=== PATIENT | male | born 1955 | race Caucasian/White ===

== ENCOUNTER 2018-03-01 20:16 | Inpatient (IN) ==
[2018-03-01] MEDS ORDERED: Aspirin 325 MG Tablet PO ONE (20:39)
[2018-03-01] MEDS ORDERED: Sod Chloride 0.9% Inj 1,000 ML IV.SIG ONE ×2 (20:46→22:28)
[2018-03-01] MEDS ORDERED: Amiodarone Inj 150 MG in Dextrose 5% in Water Inj 97 ML IV.SIG ONE ×2 (20:52)
[2018-03-01] MEDS ORDERED: Ketorolac Inj 30 MG/ML (IVP) Vial IV.PUSH ONE (21:06)
[2018-03-01 21:33] LABS: Baso % (Auto) 0.1 % (0.0-2.0); Hematocrit 33.8 % (39.0-51.0); Hemoglobin 10.3 gm/dL (13.0-17.0); Lymph # (Auto) 0.9 th/mm3 (1.0-4.8); Lymph % (Auto) 3.3 % (9.0-44.0); Mean Corpuscular HGB Conc 30.6 % (32.0-36.0); Mean Corpuscular Volume 81.7 fL (80.0-100.0); Mean Platelet Volume 7.9 fL (7.0-11.0); Mono # (Auto) 1.1 th/mm3 (0.0-0.9); Mono % (Auto) 3.8 % (0.0-8.0); Neut # (Auto) 26.5 th/mm3 (1.8-7.7); Neut % (Auto) 92.8 % (16.0-70.0); Platelet Count 328 th/mm3 (150-450); Red Blood Count 4.13 mil/mm3 (4.50-5.90); Red Cell Distribution Width 16.4 % (11.6-17.2); White Blood Count 28.5 th/mm3 (4.0-11.0)
[2018-03-01] MEDS ORDERED: Piperacil/Tazo 4.5 GM Premix 4.5 GM/100 ML BAG IV.SIG ONE (21:35)
[2018-03-01 21:41] LABS: VBG Base Excess -2.8 mmol/L (-2-2); VBG Blood Gas Oxygen Content 2.6 Vol % (9.0-17.0); VBG PCO2 50 mmHG (44-48); VBG PH 7.29 (7.360-7.400); VBG PO2 20 mmHG (35-40)
[2018-03-01 21:46] LABS: Activated Partial Thrombo Time 28.6 sec (24.3-30.1); Alanine Aminotransferase 47 U/L (12-78); INR 1.3 Ratio; Prothrombin Time 13.1 sec (9.8-11.6)
[2018-03-01 21:57] LABS: Alkaline Phosphatase 280 U/L (45-117); Anion Gap 15 meq/L (5-15); Aspartate Aminotransferase 110 U/L (15-37); Blood Urea Nitrogen 15 mg/dL (7-18); Calcium 8.2 mg/dL (8.5-10.1); Carbon Dioxide 21.9 meq/L (21.0-32.0); Chloride 97 meq/L (98-107); Glomerular Filtration Rate 35 mL/min (>89); Glucose,Random 81 mg/dL (74-106); Sodium 134 meq/L (136-145); Total Protein 7.1 g/dL (6.4-8.2); Troponin I 0.03 ng/mL (0.02-0.05)
[2018-03-01 22:00] LABS: Creatine Kinase 75 U/L (39-308); Potassium 4.4 meq/L (3.5-5.1)
[2018-03-01] MEDS ORDERED: Vancomycin Inj 1 GM/200 ML PIGGYBACK IV.SIG SCH (22:00)
--- NOTE | 2018-03-01 22:07 | XR ---
EXAM DATE: 03/01/2018 9:27 PM EDT AGE/SEX: 62 years / Male INDICATIONS: . Chest pain. Short of breath. CLINICAL DATA: This is the patient's initial encounter. Patient reports that signs and symptoms have been present for 1 day and indicates a pain score of Nonresponsive. MEDICAL/SURGICAL HISTORY: None. None. COMPARISON: C, RIBS LEFT(W PA CXR MIN 3VWS), 03/28/2011. . FINDINGS: Examination is abnormal demonstrating a large area of consolidation mid and lower right lung causing loss of delineation of the right hemidiaphragm and preservation of the right heart border. No evidenc e of mediastinal shift. The left lung is clear. The heart is normal in size. CONCLUSION: Left mid and lower lung lobar consolidation. Electronically signed by: Harlan Garcia MD 03/01/2018 10:06 PM EDT
[2018-03-01 22:11] LABS: Lymphocytes 6 % (9-44); Monocytes 3 % (0-8); Platelet Estimate Normal (Normal); Platelet Morphology Normal (Normal); Toxic Vacuolation Present
[2018-03-01 22:14] LABS: Acanthocytes Occ
--- NOTE | 2018-03-01 22:23 | ED ---
HPI General Chief Complaint: Chest Pain Stated Complaint: Neuro Time Seen by Provider: 03/01/18 20:28 Source: patient Mode of arrival: ambulatory Limitations: no limitations History of Present Illness HPI narrative: 62-year-old male the presents to the ED for evaluation of chest pain on the left side as well as chest pain on the right side and numbness to his right arm. Per patient he has had the chest pain on the right side for about 3 weeks and is progressively getting worse. Per patient is more positionally gets worse when he lays on flat. Per patient he has not seen anybody for this. Per patient is also developed left-sided chest pain which shortness of breath with exertion. Per patient he has no history of heart disease. Per patient he has no history of medical issues alert and some chronic back problems for which she follows with pain management and takes morphine and pain medications. Per patient his pain currently is 8 out of 10. Per patient the pain is more severe on the right side than the left. Per patient he also has numbness to his right arm that he has been having for about 3 weeks as well. Per patient he went to see structural steel painter who evaluated him and recommended that he goes to the ER. Apparently at the time patient decided not to go to the ER secondary to having a lot of things to do for work. Patient comes here today because his pain has progressively gotten worse and he gets more short of breath. He denies ever being told he had atrial fibrillation or any other medical issues. Patient does report that he has a history of bilateral lower leg infections as well as hardware secondary to an injury he sustained in the [place]. Per patient he has been told that apparently he has some poisoning as well as possible infection from the bone marrow secondary to the hardware he has in his legs. Patient is not really specific if he is taking antibiotics or who is taking care of this. He does tell me that he has noted that he has lost 60 pounds in the past 6 months without trying. Complete Quality Measures for STEMI Alert Patients Related Data Home Medications Medication Instructions Recorded Confirmed Unable to Obtain Home Meds 03/02/18 03/02/18 Allergies Allergy/AdvReac Type Severity Reaction Status Date / Time Unable to Assess Allergy Unknown Unverified 03/30/17 06:11 No Known Allergies Allergy Uncoded 07/29/15 10:32 Review of Systems ROS Unobtainable All other systems reviewed negative except as stated in HPI PMFSH Medical History Medical History Edema (Acute) Back pain (Acute) Bone marrow transplant infection (Chronic) Social History Social History Substance History: No History of Abuse Smoking Status: Former smoker Tobacco Type: Cigarettes How Often Do You Have a Drink Containing Alcohol: 2 to 3 times a week Recent Travel in [facility] within the Last 8 Weeks: No Recent Out of Country Travel within the Last 8 Weeks: No Immunization History Tetanus Immunization: <5 Years Hx Influenza Vaccine This Season: No Exam Narrative Exam Narrative: GENERAL: Very anorexic and disheveled SKIN: Focused skin assessment warm/dry. HEAD: Atraumatic. Normocephalic. EYES: Pupils equal and round. No scleral icterus. No injection or drainage. ENT: No nasal bleeding or discharge. Mucous membranes pink and moist. NECK: Trachea midline. No JVD. CARDIOVASCULAR: Irregular irregular rate and rhythm. No murmur appreciated. RESPIRATORY: No accessory muscle use. Clear to auscultation. Breath sounds equal bilaterally. GASTROINTESTINAL: Abdomen soft, non-tender, nondistended. Hepatic and splenic margins not palpable. MUSCULOSKELETAL: No obvious deformities. No clubbing. No cyanosis. No edema. Full range of motion of the upper and lower extremities bilaterally. 2+ pulses bilaterally. Patient does have chronic deformities to the lower legs bilaterally and soft tissue swelling to the lower legs as well with what appears to be 1+ pitting edema bilaterally. NEUROLOGICAL: Awake and alert. No obvious cranial nerve deficits. Motor grossly within normal limits. Normal speech. PSYCHIATRIC: Appropriate mood and affect; insight and judgment normal. Procedures Hemaprompt Stool Procedural Steps Taken: specimen placed in appropriate test area, developer placed on specimen and control areas and controls appropriately positive and negative Hemaprompt Stool Result: negative Course Initial Documented Vital Signs Temperature 99.5 F 03/01/18 20:22 Pulse Rate 130 H 03/01/18 20:22 Respiratory Rate 24 03/01/18 20:22 Blood Pressure 136/87 03/01/18 20:22 Pulse Oximetry 97 03/01/18 20:22 Last Documented Vital Signs Temperature 98.9 F 03/01/18 21:24 Pulse Rate 90 03/02/18 01:27 Respiratory Rate 20 03/02/18 01:27 Blood Pressure 99/64 L 03/02/18 01:27 Pulse Oximetry 98 03/02/18 01:27 Critical Care Time Critical Care Time: Yes Total Critical Care Time: 40 Attestation: Aggregate critical care time was 40 minutes. Time to perform other separately billable procedures was not included in the critical care time. My time did not include minutes spent treating any other patients simultaneously or on activities that did not directly contribute to the patient's treatment. The services I provided to this patient were to treat and/or prevent clinically significant deterioration that could result in: Septic shock, cardiogenic shock , I provided critical care services requiring my management, as noted below: Chart data review, documentation time, medication orders and management, vital sign assessments/reviewing monitor data, ordering and reviewing lab tests, ordering and interpreting/reviewing x-rays and diagnostic studies, care of the patient and discussion of the patient with the admitting physicians. Medical Decision Making MDM Narrative Medical decision making narrative: 62-year-old male that presents to the ED for evaluation of chest pain. Patient was properly examined and was found to have signs and symptoms which appear to be very concerning for atrial for ablation RVR. Patient initially was seen with a normal blood pressure in the 130s systolic as well as a heart rate in the 130s 140s in triage but while I was evaluating the patient myself patient's heart rate was in the 160s 170s and his blood pressure seemed to have come down to the 70 systolic. I immediately spoke with my attending Dr. Jackson who came to bedside and agree with plan. Labs and imaging were ordered. Multiple IV lines were placed. IV fluids as well as amiodarone was started. Patient was given 2 L of fluids. Rectal exam was done and did not show any sign of bleeding. Imaging and labs were done and showed leukocytosis in the 20,000 and what appears to be a mass in the chest x- ray. Patient was started on IV antibiotics for possible sepsis as well as CT pulmonary angiograms and abdomen and head were ordered. Patient will still somewhat hypotensive so pressors were started. My attending Dr. Jackson herself spoke with Dr. Reinoso herself who agrees to admission to his service. Patient was admitted to the ICU. I, Dr. Jackson, have reviewed the advance practice practitioner's documentation and am in agreement, met with the patient face to face, made the diagnosis, and the medical decision making was done by me. *My assessment and Findings: 62-year-old male presents with complaint of palpitations right-sided chest pain and shortness of breath identified in triage to have atrial fibrillation by EKG patient was brought back directly to the emergency department and placed on hall monitor with continuous pulse oximetry O2 saturations in normal range patient identified to be in atrial fibrillation with RVR rate of 150 with hypotension. IV access obtained specimens collected and sent for resulting patient bolused with normal saline 1 L and amiodarone bolus ordered 150 mg. Patient set up for cardioversion if condition changed or patient was not showing evidence of response to amiodarone infusion. Patient given additional liter of normal saline. Patient repetitively complaining of right sided chest pain that he has had daily for greater than 3 weeks that resolves with lying on his right side but worsens with resting supine. No left-sided chest pain no nausea no referred neck jaw back shoulder arm pain. Patient had failed vasovagal maneuvers. Patient with history of previous surgeries related to injury sustained in the [place] and chronic pain syndrome. Patient admits to daily morphine and oxycodone use. Patient states he took his medications as prescribed and did not take additional medications. Denied history of cardiac disease or rhythm disturbance or specifically atrial fibrillation. Patient states he had felt palpitations for at least 2 weeks. Patient is noted improvement of symptoms and rate of rhythm with IV fluid hydration as well as amiodarone and. Chest x-ray was performed and identified to be specifically abnormal to the right lower lung field with difficulty differentiating area of right hemidiaphragm. Stat imaging studies CT pulmonary angiogram and CT abdomen pelvis with IV contrast ordered. Patient treated with presumptive IV antibiotics after obtaining blood cultures and lactic acid specimen was Zosyn and vancomycin as identified to have white count of 28,000 with left shift. Patient denies any recent fever cough dysuria but does complain of right-sided chest pain possibly related to right upper quadrant abdominal pain. Patient's ABG consistent with mild respiratory acidosis with history of COPD. Cardiac enzymes found to be remarkable for troponin component of 0.03 but still in normal range and CK not elevated. Patient with renal insufficiency with creatinine of 1.96. Patient's case discussed with pipeline integrity engineer for admission to the ICU for new onset atrial fibrillation septic shock lung mass possibly abdominal mass. CT pulmonary angiogram no PE concerning for right lower lobe lung collapse and CT abdomen and pelvis concerning for hepatomegaly with possible acalculous cholecystitis. This information was shared with the pipeline integrity engineer. Patient was also administered digoxin 0.5 mg IV and recommendation of pipeline integrity engineer albumin and Solu-Cortef. Dr Meza in ED to see patient. Differential Diagnosis Differential Diagnosis: Pneumonia versus sepsis versus cancer versus mass versus lung cancer versus atrial fibrillation RVR versus PE versus septic shock versus cardiac arrest Medical Records Medical records reviewed: Yes I reviewed the patient's medical records. I reviewed medical records Lab Data Lab results reviewed: Yes I reviewed the patient's lab results. Lab results narrative: Ammonia within normal limits. Troponin of 0.03 CK-MB negative [facility] Result diagrams: 03/01/18 20:50 03/01/18 20:50 Lab Results 03/01/18 03/01/18 03/01/18 Range/Units 20:50 20:50 20:50 WBC 28.5 H (4.0-11.0) th/mm3 RBC 4.13 L (4.50-5.90) mil/mm3 Hgb 10.3 L (13.0-17.0) gm/dL Hct 33.8 L (39.0-51.0) % MCV 81.7 (80.0-100.0) fL MCH 25.0 L (27.0-34.0) pg MCHC 30.6 L (32.0-36.0) % RDW 16.4 (11.6-17.2) % Plt Count 328 (150-450) th/mm3 MPV 7.9 (7.0-11.0) fL Prelim Diff (Auto) Slide review pending Neut % (Auto) 92.8 H (16.0-70.0) % Lymph % (Auto) 3.3 L (9.0-44.0) % Traill % (Auto) 3.8 (0.0-8.0) % Eos % (Auto) 0.0 (0.0-4.0) % Baso % (Auto) 0.1 (0.0-2.0) % Neut # (Auto) 26.5 H (1.8-7.7) th/mm3 Lymph # (Auto) 0.9 L (1.0-4.8) th/mm3 Traill # (Auto) 1.1 H (0.0-0.9) th/mm3 Eos # (Auto) 0.0 (0.0-0.4) th/mm3 Baso # (Auto) 0.0 (0.0-0.2) th/mm3 WBC Differential Manual diff final Seg Neuts % (Manual) 72 H (16-70) % Band Neuts % (Manual) 19 H (0-6) % Lymphocytes % (Manual) 6 L (9-44) % Monocytes % (Manual) 3 (0-8) % Abs Neuts (Manual) 25.9 H (1.8-7.7) th/mm3 Differential Comment . Toxic Vacuolation Present H (None) Platelet Estimate Normal (Normal) Platelet Morphology Normal (Normal) Acanthocytes (Spur) Occ H (None) PT 13.1 H (9.8-11.6) sec INR 1.3 Ratio APTT 28.6 (24.3-30.1) sec Puncture Site Patient Temperature VBG pH (7.360-7.400) VBG pCO2 (44-48) mmHG VBG pO2 (35-40) mmHG VBG HCO3 (22-26) mmol/L VBG O2 Saturation (70-76) % VBG O2 Content (9.0-17.0) Vol % VBG Base Excess (-2-2) mmol/L VBG Carboxyhemoglobin (0-4) % VBG Methemoglobin (0-2) % Hemoglobin (12.0-16.0) G/DL O2 Delivery Device Liter Flow L/M Inspired O2 % Critical Value Sodium 134 L (136-145) meq/L Potassium 4.4 (3.5-5.1) meq/L Chloride 97 L (98-107) meq/L Carbon Dioxide 21.9 (21.0-32.0) meq/L Anion Gap 15 (5-15) meq/L BUN 15 (7-18) mg/dL Creatinine 1.96 H (0.60-1.30) mg/dL Estimated GFR 35 L (>89) mL/min Random Glucose 81 (74-106) mg/dL Lactic Acid (0.4-2.0) mmol/L Calcium 8.2 L (8.5-10.1) mg/dL Total Bilirubin 0.6 (0.2-1.0) mg/dL AST 110 H (15-37) U/L ALT 47 (12-78) U/L Alkaline Phosphatase 280 H (45-117) U/L Ammonia (11-32) mcmol/L Total Creatine Kinase 75 (39-308) U/L Troponin I 0.03 (0.02-0.05) ng/mL B-Natriuretic Peptide (0-100) pg/mL Total Protein 7.1 (6.4-8.2) g/dL Albumin 2.0 L (3.4-5.0) g/dL Serum Alcohol (0-5) mg/dL Blood Type Blood Type Recheck Antibody Screen 03/01/18 03/01/18 03/01/18 Range/Units 20:50 21:10 21:29 WBC (4.0-11.0) th/mm3 RBC (4.50-5.90) mil/mm3 Hgb (13.0-17.0) gm/dL Hct (39.0-51.0) % MCV (80.0-100.0) fL MCH (27.0-34.0) pg MCHC (32.0-36.0) % RDW (11.6-17.2) % Plt Count (150-450) th/mm3 MPV (7.0-11.0) fL Prelim Diff (Auto) Neut % (Auto) (16.0-70.0) % Lymph % (Auto) (9.0-44.0) % Traill % (Auto) (0.0-8.0) % Eos % (Auto) (0.0-4.0) % Baso % (Auto) (0.0-2.0) % Neut # (Auto) (1.8-7.7) th/mm3 Lymph # (Auto) (1.0-4.8) th/mm3 Traill # (Auto) (0.0-0.9) th/mm3 Eos # (Auto) (0.0-0.4) th/mm3 Baso # (Auto) (0.0-0.2) th/mm3 WBC Differential Seg Neuts % (Manual) (16-70) % Band Neuts % (Manual) (0-6) % Lymphocytes % (Manual) (9-44) % Monocytes % (Manual) (0-8) % Abs Neuts (Manual) (1.8-7.7) th/mm3 Differential Comment Toxic Vacuolation (None) Platelet Estimate (Normal) Platelet Morphology (Normal) Acanthocytes (Spur) (None) PT (9.8-11.6) sec INR Ratio APTT (24.3-30.1) sec Puncture Site By rn from iv site Patient Temperature 98.6 VBG pH 7.29 L* (7.360-7.400) VBG pCO2 50 H (44-48) mmHG VBG pO2 20 L* (35-40) mmHG VBG HCO3 23 (22-26) mmol/L VBG O2 Saturation 20 L (70-76) % VBG O2 Content 2.6 L (9.0-17.0) Vol % VBG Base Excess -2.8 L (-2-2) mmol/L VBG Carboxyhemoglobin 1.8 (0-4) % VBG Methemoglobin 0.6 (0-2) % Hemoglobin 9.2 L (12.0-16.0) G/DL O2 Delivery Device Nasal cannula Liter Flow 4.00 L/M Inspired O2 21 % Critical Value Yes Sodium (136-145) meq/L Potassium (3.5-5.1) meq/L Chloride (98-107) meq/L Carbon Dioxide (21.0-32.0) meq/L Anion Gap (5-15) meq/L BUN (7-18) mg/dL Creatinine (0.60-1.30) mg/dL Estimated GFR (>89) mL/min Random Glucose (74-106) mg/dL Lactic Acid (0.4-2.0) mmol/L Calcium (8.5-10.1) mg/dL Total Bilirubin (0.2-1.0) mg/dL AST (15-37) U/L ALT (12-78) U/L Alkaline Phosphatase (45-117) U/L Ammonia 16 (11-32) mcmol/L Total Creatine Kinase (39-308) U/L Troponin I (0.02-0.05) ng/mL B-Natriuretic Peptide 511 H (0-100) pg/mL Total Protein (6.4-8.2) g/dL Albumin (3.4-5.0) g/dL Serum Alcohol (0-5) mg/dL Blood Type Blood Type Recheck Antibody Screen 03/01/18 03/01/18 03/01/18 Range/Units 21:29 23:00 23:00 WBC (4.0-11.0) th/mm3 RBC (4.50-5.90) mil/mm3 Hgb (13.0-17.0) gm/dL Hct (39.0-51.0) % MCV (80.0-100.0) fL MCH (27.0-34.0) pg MCHC (32.0-36.0) % RDW (11.6-17.2) % Plt Count (150-450) th/mm3 MPV (7.0-11.0) fL Prelim Diff (Auto) Neut % (Auto) (16.0-70.0) % Lymph % (Auto) (9.0-44.0) % Traill % (Auto) (0.0-8.0) % Eos % (Auto) (0.0-4.0) % Baso % (Auto) (0.0-2.0) % Neut # (Auto) (1.8-7.7) th/mm3 Lymph # (Auto) (1.0-4.8) th/mm3 Traill # (Auto) (0.0-0.9) th/mm3 Eos # (Auto) (0.0-0.4) th/mm3 Baso # (Auto) (0.0-0.2) th/mm3 WBC Differential Seg Neuts % (Manual) (16-70) % Band Neuts % (Manual) (0-6) % Lymphocytes % (Manual) (9-44) % Monocytes % (Manual) (0-8) % Abs Neuts (Manual) (1.8-7.7) th/mm3 Differential Comment Toxic Vacuolation (None) Platelet Estimate (Normal) Platelet Morphology (Normal) Acanthocytes (Spur) (None) PT (9.8-11.6) sec INR Ratio APTT (24.3-30.1) sec Puncture Site Patient Temperature VBG pH (7.360-7.400) VBG pCO2 (44-48) mmHG VBG pO2 (35-40) mmHG VBG HCO3 (22-26) mmol/L VBG O2 Saturation (70-76) % VBG O2 Content (9.0-17.0) Vol % VBG Base Excess (-2-2) mmol/L VBG Carboxyhemoglobin (0-4) % VBG Methemoglobin (0-2) % Hemoglobin (12.0-16.0) G/DL O2 Delivery Device Liter Flow L/M Inspired O2 % Critical Value Sodium (136-145) meq/L Potassium (3.5-5.1) meq/L Chloride (98-107) meq/L Carbon Dioxide (21.0-32.0) meq/L Anion Gap (5-15) meq/L BUN (7-18) mg/dL Creatinine (0.60-1.30) mg/dL Estimated GFR (>89) mL/min Random Glucose (74-106) mg/dL Lactic Acid 3.0 H (0.4-2.0) mmol/L Calcium (8.5-10.1) mg/dL Total Bilirubin (0.2-1.0) mg/dL AST (15-37) U/L ALT (12-78) U/L Alkaline Phosphatase (45-117) U/L Ammonia (11-32) mcmol/L Total Creatine Kinase (39-308) U/L Troponin I (0.02-0.05) ng/mL B-Natriuretic Peptide (0-100) pg/mL Total Protein (6.4-8.2) g/dL Albumin (3.4-5.0) g/dL Serum Alcohol Less than 3 (0-5) mg/dL Blood Type A Positive Blood Type Recheck Required Antibody Screen Negative Imaging Data Attestation: I personally reviewed and interpreted this imaging study as follows : Radiologist's impression: Chest X-Ray 03/01/18 20:39 CONCLUSION: Left mid and lower lung lobar consolidation. Venous Doppler Study 03/01/18 20:39 CONCLUSION: 1. The study is negative for bilateral lower extremity deep venous thrombosis. Chest CTA 03/01/18 21:06 CONCLUSION: 1. This study is negative for pulmonary embolism. 2. Dense consolidation in the right lower lobe without air bronchograms and with truncation of the bronchus to the right lower lobe. This suggests an obstructing lesion. Recommend direct visualization with bronchoscopy. 3. Multiple right-sided pleural and subpleural nodules measuring up to 2 cm in size. 4. Scattered areas of subcutaneous and deep soft tissue gas in the low neck and supraclavicular region. Abdomen/Pelvis CT 03/01/18 21:29 CONCLUSION: 1. Hepatomegaly without focal lesion. 2. Prominent amount of pericholecystic fluid without calcified gallstones suggests possible acalculous cholecystitis. 3. Abnormal appearance to the right lower lung, described on CT pulmonary angiogram report. 4. Bilateral mildly prominent inguinal lymph nodes. 5. Moderately distended stomach. Head CT 03/01/18 21:38 CONCLUSION: 1. Findings suggest a 6 mm mass in the left occipital white matter. Recommend further characterization using MRI with and without contrast. ECG Data EKG Prior to Arrival: No Attestation: I personally reviewed and interpreted this ECG as follows: Interpretation: EKG show atrial fibrillation with RVR in the 160s with no sign of acute ischemia or arrhythmia. AL intervals cannot be measured. These are new findings from prior EKG Repeat EKG again shows atrial fibrillation with RVR no acute ST elevation or injury pattern change noted Discharge Plan Discharge Disposition Patient Disposition: 30 Still Patient Discharge Condition Condition: Critical Discharge Details Diagnosis: Septic shock, Atrial fibrillation with RVR, Acute hypotension, Mass of lung, Acalculous cholecystitis Physicians Team ED Provider: Farhana Jackson ED Midlevel Provider: Gonzalo Hare Primary Care Provider: UNKNOWN, Attending Provider: Reece Meza Other Providers: Gonzalo Bland Arjun Status ED Status: Admitted Patient
[2018-03-01] MEDS ORDERED: Digoxin Inj 500 MCG/2 ML Ampul IV.PUSH ONE (22:28)
--- NOTE | 2018-03-01 22:29 | CT ---
EXAM DATE: 03/01/2018 10:04 PM EDT AGE/SEX: 62 years / Male INDICATIONS: Chest pain. CLINICAL DATA: This is the patient's initial encounter. Patient reports that signs and symptoms have been present for 1 day and indicates a pain score of 5/10. MEDICAL/SURGICAL HISTORY: None. Inguinal hernia repair. leg RADIATION DOSE: 6.89 CTDI (mGy) ; Combined studies COMPARISON: No prior exams available for comparison. TECHNIQUE: Volumetric scanning was performed using a multi-row detector CT scanner during bolus infu yany of 80 ml Omnipaque 350 (iohexol) nonionic water-soluble contrast as a cumulative dose for multi ple exams. The data was post processed with a variety of visualization algorithms including full volu me maximum intensity projection and sliding thin slab reformation. Using automated exposure control a nd adjustment of the mA and/or kV according to patient size, radiation dose was kept as low as reason ably achievable to obtain optimal diagnostic quality images. DICOM format image data is available el ectronically for review and comparison. FINDINGS: Pulmonary Arteries: No filling defects are seen in the pulmonary arteries out to the subsegmental ve ssels. The left and right pulmonary arteries are normal in diameter. Lung: There is dense consolidation of the right lower lobe with evidence of some volume expansion an d no air bronchograms. There is truncation of the bronchus to the right lower lobe at its origin. Effusion: None. Pleura: There are multiple pleural-based nodules in the right chest, the largest located in the cardi ophrenic angle measuring up to 2 cm in size. Additional areas of nodular thickening are present in th e lateral mid lung and anterior mid lung. No nodular pleural thickening on the left side. Mediastinum: No evidence of mediastinal or hilar adenopathy. Other: Scattered areas of gas in the soft tissues of the supraclavicular region bilaterally extendin g into the neck. CONCLUSION: 1. This study is negative for pulmonary embolism. 2. Dense consolidation in the right lower lobe without air bronchograms and with truncation of the b ronchus to the right lower lobe. This suggests an obstructing lesion. Recommend direct visualization with bronchoscopy. 3. Multiple right-sided pleural and subpleural nodules measuring up to 2 cm in size. 4. Scattered areas of subcutaneous and deep soft tissue gas in the low neck and supraclavicular bin on. Electronically signed by: Harlan Garcia MD 03/01/2018 10:28 PM EDT
[2018-03-01] MEDS ORDERED: Hydrocortisone Inj 100 MG in Sodium Chlor 0.9% Inj 100 ML IV.SIG ONE (22:32)
[2018-03-01] MEDS: Metoprolol Inj 5 MG/5 ML Vial IV.PUSH SCH (22:32)
--- NOTE | 2018-03-01 22:32 | CT ---
EXAM DATE: 03/01/2018 10:00 PM EDT AGE/SEX: 62 years / Male INDICATIONS: Altered mental status. CLINICAL DATA: This is the patient's initial encounter. Patient reports that signs and symptoms have been present for 1 day and indicates a pain score of 4/10. MEDICAL/SURGICAL HISTORY: None. Inguinal hernia repair. leg RADIATION DOSE: 63.64 CTDI (mGy) [place] [facility] [place]28/2011. . TECHNIQUE: CT of the head without contrast. Using automated exposure control and adjustment of the mA and/or kV according to patient size, radiation dose was kept as low as reasonably achievable to ob tain optimal diagnostic quality images. DICOM format image data is available electronically for revi ew and comparison. FINDINGS: Cerebrum: There is a 6 mm round nodular opacity in the posterior left occipital white matter without evidence of mass effect or surrounding edema, best seen on image #16.. The intermediate density. The ventricles are normal in size. No evidence of midline shift. No extra-axial fluid or blood. Posterior Fossa: The cerebellum and brainstem are intact. The 4th ventricle is midline. The cerebe llopontine angle is unremarkable. Extracranial: The visualized portion of the orbits is intact. Skull: The calvaria is intact. No evidence of skull fracture. CONCLUSION: 1. Findings suggest a 6 mm mass in the left occipital white matter. Recommend further characterizati on using MRI with and without contrast. Electronically signed by: Harlan Garcia MD 03/01/2018 10:30 PM EDT
[2018-03-01] MEDS ORDERED: Albumin Human 5% Inj 250 ML IV.SIG ONE (22:33)
--- NOTE | 2018-03-01 22:38 | CT ---
EXAM DATE: 03/01/2018 10:03 PM EDT AGE/SEX: 62 years / Male INDICATIONS: Abdomen pain. CLINICAL DATA: This is the patient's initial encounter. Patient reports that signs and symptoms have been present for 1 day and indicates a pain score of 5/10. MEDICAL/SURGICAL HISTORY: None. Inguinal hernia repair. leg ORAL CONTRAST: No oral contrast ingested. RADIATION DOSE: 6.89 CTDI (mGy) ; Combined studies COMPARISON: No prior exams available for comparison. TECHNIQUE: Multiple contiguous axial images were obtained through the abdomen and pelvis following b olus infusion of 80 ml Omnipaque 350 (iohexol) nonionic water-soluble contrast as a cumulative dose for multiple exams. No oral contrast ingested. Using automated exposure control and adjustment of t he mA and/or kV according to patient size, radiation dose was kept as low as reasonably achievable to obtain optimal diagnostic quality images. DICOM format image data is available electronically for r eview and comparison. FINDINGS: Lower Lungs: Abnormal appearance to the right lower lobe with heterogeneous density consolidation and several subpleural nodules in the right lower chest. Liver: Hepatomegaly with craniocaudal dimension 19 cm. No focal lesions seen. There is an abnormal ap pearance to the gallbladder with pericholecystic fluid, but no gallbladder wall thickening and no gabby cified gallstones. Spleen: Homogeneous density without enlargement. Pancreas: Unremarkable without mass or calcification. Kidneys: Normal in size and shape. No evidence of mass or hydronephrosis. Adrenal Glands: Unremarkable. Aorta: The aorta and proximal iliac vessels are grossly unremarkable without aneurysmal dilation. Bowel/Mesentery: Moderate distention of the stomach predominantly fluid-filled. No dilated loops of s mall or large bowel. Very little mesenteric and retroperitoneal fat. Abdominal Wall: Intact. Multiple anchor screws in the low anterior abdominal wall. Retroperitoneum: No evidence of adenopathy in the retrocrural, para-aortic, or deep pelvic regions. Bladder: Contours are smooth. Reproductive Organs: No abnormal masses or calcifications seen. Inguinal: Multiple bilateral prominent inguinal nodes measuring up to 1.4 cm in size. Bony Structures: Healed fracture of the posterior right 11th rib with bridging callus. Advanced dege nerative changes in the right hip with prominent supra-acetabular subchondral cyst.. CONCLUSION: 1. Hepatomegaly without focal lesion. 2. Prominent amount of pericholecystic fluid without calcified gallstones suggests possible acalculo us cholecystitis. 3. Abnormal appearance to the right lower lung, described on CT pulmonary angiogram report. 4. Bilateral mildly prominent inguinal lymph nodes. 5. Moderately distended stomach. Electronically signed by: Harlan Garcia MD 03/01/2018 10:37 PM EDT
[2018-03-01] MEDS ORDERED: Hydrocortisone Sod Succinate 100 MG Vial IV.PUSH ONE (22:45)
--- NOTE | 2018-03-01 23:01 | US ---
EXAM DATE: 03/01/2018 10:39 PM EDT AGE/SEX: 62 years / Male INDICATIONS: Bilateral leg swelling. CLINICAL DATA: This is the patient's initial encounter. Patient reports that signs and symptoms have been present for 1 day and indicates a pain score of 3/10. MEDICAL/SURGICAL HISTORY: . Back pain. Edema. . Bone marrow transplant. COMPARISON: No prior exams available for comparison. TECHNIQUE: Venous ultrasound of both lower extremities was performed from the inguinal ligament to t he proximal calf. Real-time, color Doppler and spectral tracing, compression and augmentation techni ques were used. FINDINGS: Right Leg: Normal compression of the deep venous system from the inguinal region to the proximal gabby f. No echogenic clot is seen. Normal response of the venous system to augmentation and respiration. Left Leg: Normal compression of the deep venous system from the inguinal region to the proximal calf . No echogenic clot is seen. Normal response of the venous system to augmentation and respiration. Other: None. CONCLUSION: 1. The study is negative for bilateral lower extremity deep venous thrombosis. Electronically signed by: Harlan Garcia MD 03/01/2018 11:00 PM EDT
[2018-03-01] MEDS: Sod Chloride 0.9% Inj 1,000 ML IV.CONT SCH (23:48)
[2018-03-02] MEDS ORDERED: Bisacodyl 10 MG Supp RECTAL PRN (00:41)
--- NOTE | 2018-03-02 01:34 | P.HPCC ---
History of Present Illness Service: critical care Primary Care Physician: UNKNOWN Chief Complaint: Chest pain, Not feeling well for few weeks History of Present Illness: 62-year-old male who presented to ER with right-sided chest pain were on for a few days with some shortness of breath. He has not been feeling well for the last 2 weeks with progressive weakness which is generalized. Patient is also lost weight about 50-60 pounds in the last 6 months which is unintentional. He denies any nausea vomiting or diarrhea. Denies any melena or rectal bleeding. Patient was found to be in A. fib with RVR on arrival in the ER. He received IV Lopressor and subsequently dropped his blood pressure and she was started on Levophed for pressor support. After obtaining blood cultures patient was started on IV Zosyn. He underwent imaging studies which revealed hepatomegaly, right lower lobe consolidation and a question of fluid around the gallbladder suggesting cholecystitis. Head CT revealed a lesion in the occipital lobe. Patient was accepted for admission by critical care medicine service. When I evaluated the patient in the ER he was laying in the ER stretcher appeared comfortable not in acute distress though was diaphoretic. [place] on the [facility]. Inpatient Certification: I certify that the inpatient services were ordered in accordance with Medicare regulations governing the order. This includes certification that hospital inpatient services are reasonable and necessary and in the case of services not specified as inpatient-only under 42 CFR 419.22(n), that they are appropriately provided as inpatient services in accordance to with the 2-midnight benchmark under 43 CFR 412.3(e) Estimated Total Length of Stay (Days): 7 Plans for Post Hospital Care: Not yet determined Review of Systems All other systems reviewed negative except as stated [facility] - History History Provided By: Patient - Medical History Medical History: Medical History (Last Reviewed 03/01/18 @ 22:18 by ANDREW Garcia) Edema (Acute) Back pain (Acute) Bone marrow transplant infection (Acute) - Tobacco History Smoking Status: Former smoker Tobacco Type: Cigarettes - Alcohol History How Often Do You Have a Drink Containing Alcohol: 2 to 3 times a week - Substance Use History Substance History: No History of Abuse - Travel History Recent Travel in the [place] Within the Last 8 Weeks: No Recent Travel Out of the Country Within the Last 8 Weeks: No - Immunization History Tetanus Immunization: <5 Years Hx Influenza Vaccine This Season: No Medications and Allergies Active Medications: Active Medications Al Hydroxide/Mg Hydroxide (Milk Of Magnesia Liq) 30 ml PO Q12H PRN PRN Reason: Mild Constipation Albuterol (Duoneb Neb (Prn)) 1 ampul NEB Q2HR NEB PRN PRN Reason: WHEEZING Bisacodyl (Dulcolax Supp) 10 mg RECTAL DAILY PRN PRN Reason: SEVERE CONSITIPATION Chlorhexidine Gluconate (Chlorhexidine 2% Cloth) 3 pack TOPICAL DAILY@0400 SUSIE Stop: 03/07/18 03:59 Chlorhexidine Gluconate (Chlorhexidine 2% Cloth) 3 pack TOPICAL DAILY@0400 PRN PRN Reason: Extra cloth needed Stop: 03/07/18 03:59 Hydrocortisone Sodium Succinate (Solucortef Inj) 100 mg IV.PUSH Q8HR [facility] Amiodarone HCl 450 mg/ (Dextrose) 250 mls @ 33.33 mls/hr IV.CONT TITRATE PRN; Protocol PRN Reason: Per Protocol Last Admin: 03/01/18 22:49 Dose: 1 mg/min, 33.33 mls/hr Norepinephrine Bitartrate (Levophed-Dextrose 4 Mg/250 Ml Drip) 4 mg in 250 mls @ 7.5 mls/hr IV.SIG TITRATE PRN; Protocol PRN Reason: Per Protocol Last Titration: 03/01/18 23:02 Dose: 4 mcg/min, 15 mls/hr Vancomycin/Sodium Chloride (Vancomycin Inj) 1 gm in 200 mls @ 200 mls/hr IV.SIG ASSOCIATE [employer]IA DIRECTOR [facility] Sodium Chloride (Ns Inj) 1,000 mls @ 100 mls/hr IV.CONT .Q10H [facility] Last Admin: 03/01/18 23:48 Dose: 100 mls/hr Piperacillin/Tazobactam/Dextrose (Zosyn 3.375 Gm Premix) 50 mls @ 100 mls/hr IV.SIG Q6H SUSIE Lactulose (Lactulose Liq) 30 ml PO DAILY PRN PRN Reason: SEVERE CONSITIPATION Ondansetron HCl (Zofran Inj) 4 mg IV.PUSH Q6H PRN PRN Reason: NAUSEA OR VOMITING Pantoprazole Sodium (Protonix Inj) 40 mg IV.PUSH DAILY SUSIE Senna/Docusate Sodium (Heather-Colace) 1 tab PO BID SUSIE Sennosides (Senokot) 17.2 mg PO Q12H PRN PRN Reason: Moderate Constipation Sodium Chloride (Ns Flush) 2 ml IV.FLUSH UNSCH PRN PRN Reason: FLUSH AFTER USING IV ACCESS Last Admin: 03/01/18 22:50 Dose: 2 ml Sodium Chloride (Ns Flush) 2 ml IV.FLUSH BID SUSIE Sodium Chloride (Ns Flush) 2 ml IV.FLUSH PRN PRN PRN Reason: FLUSH AFTER USING IV ACCESS Terbutaline Sulfate (Brethine Inj) 1 mg SQ UNSCH PRN PRN Reason: For Extravasation Last Admin: 03/01/18 22:48 Dose: 1 mg Allergies Allergy/AdvReac Type Severity Reaction Status Date / Time Unable to Assess Allergy Unknown Unverified 03/30/17 06:11 No Known Allergies Allergy Uncoded 07/29/15 10:32 Results - Labs CBC & Chem 7: 03/01/18 20:50 03/01/18 20:50 Labs: Short CBC 03/01/18 Range/Units 20:50 WBC 28.5 H (4.0-11.0) th/mm3 Hgb 10.3 L (13.0-17.0) gm/dL Hct 33.8 L (39.0-51.0) % Plt Count 328 (150-450) th/mm3 BMP 03/01/18 20:50 Sodium 134 L Potassium 4.4 Chloride 97 L Carbon Dioxide 21.9 BUN 15 Creatinine 1.96 H Calcium 8.2 L Cardiac Enzymes 03/01/18 Range/Units 20:50 Total Creatine Kinase 75 (39-308) U/L Troponin I 0.03 (0.02-0.05) ng/mL Liver Function 03/01/18 Range/Units 20:50 Total Bilirubin 0.6 (0.2-1.0) mg/dL AST 110 H (15-37) U/L ALT 47 (12-78) U/L Alkaline Phosphatase 280 H (45-117) U/L Albumin 2.0 L (3.4-5.0) g/dL - Imaging Impressions Chest X-Ray 03/01/18 20:39 CONCLUSION: Left mid and lower lung lobar consolidation. Venous Doppler Study 03/01/18 20:39 CONCLUSION: 1. The study is negative for bilateral lower extremity deep venous thrombosis. Chest CTA 03/01/18 21:06 CONCLUSION: 1. This study is negative for pulmonary embolism. 2. Dense consolidation in the right lower lobe without air bronchograms and with truncation of the bronchus to the right lower lobe. This suggests an obstructing lesion. Recommend direct visualization with bronchoscopy. 3. Multiple right-sided pleural and subpleural nodules measuring up to 2 cm in size. 4. Scattered areas of subcutaneous and deep soft tissue gas in the low neck and supraclavicular region. Abdomen/Pelvis CT 03/01/18 21:29 CONCLUSION: 1. Hepatomegaly without focal lesion. 2. Prominent amount of pericholecystic fluid without calcified gallstones suggests possible acalculous cholecystitis. 3. Abnormal appearance to the right lower lung, described on CT pulmonary angiogram report. 4. Bilateral mildly prominent inguinal lymph nodes. 5. Moderately distended stomach. Head CT 03/01/18 21:38 CONCLUSION: 1. Findings suggest a 6 mm mass in the left occipital white matter. Recommend further characterization using MRI with and without contrast. Exam Vital signs: Vital Signs 03/01/18 20:22 03/01/18 20:25 03/01/18 20:42 Temperature 99.5 F Pulse Rate 130 H 167 H Pulse Rate [Radial] 167 H Respiratory Rate 24 18 Blood Pressure 136/87 85/51 L 63/38 L Blood Pressure [Left Arm] 63/38 L Pulse Oximetry 97 100 03/01/18 20:53 03/01/18 21:00 03/01/18 21:02 Temperature Pulse Rate 140 H 134 H 127 H Pulse Rate [Radial] Respiratory Rate 20 28 H 29 H Blood Pressure 81/52 L 79/57 L 89/54 L Blood Pressure [Left Arm] Pulse Oximetry 97 100 95 03/01/18 21:06 03/01/18 21:16 03/01/18 21:32 Temperature Pulse Rate 116 H 97 H Pulse Rate [Radial] Respiratory Rate 27 H 28 H Blood Pressure 80/58 L 81/47 L Blood Pressure [Left Arm] Pulse Oximetry 100 100 99 03/01/18 22:10 03/01/18 23:37 Temperature Pulse Rate 110 H Pulse Rate [Radial] Respiratory Rate 28 H 20 Blood Pressure 89/58 L Blood Pressure [Left Arm] Pulse Oximetry 96 Intake & Output 0703/01/18 03/02/18 06:59 18:59 06:59 Intake Total 1100 / 1100 Balance 1100 / 1100 Weight 55.792 kg Intake: IV 1100 / 1100 Cordarone Inj 150 MG In D5W Inj 100 / 100 97 ML @ 600 mls/hr IV.SIG ONCE ONE Rx#:[id number] NS Inj 1,000 ML @ Wide Open IV. 1000 / 1000 SIG BOLUS ONE Rx#:[id number] Narrative: HEENT/Neuro: No pallor or icterus, tongue moist, MARIA ELENA, Awake alert oriented 3 , nonfocal grossly, moving all 4 extremities Neck: No JVD Chest/pulmonary: Air entry decreased over right base. Scattered rhonchi, no wheezing Cardiovascular: S1-S2 regular no gallop or murmur GI/abdomen: Soft, nontender, bowel sounds present Extremities: Warm bilaterally, no edema. Healed incision scar noted over right leg Caprini VTE Risk Assessment Caprini VTE Risk Assessment: Moderate/High Risk (score >= 2) Caprini Risk Assessment Model: Point Value = 1 Point Value = 2 Point Value = 3 Point Value = 5 Age 41-60 Minor surgery BMI > 25 kg/m2 Swollen legs Varicose veins or History of unexplained or recurrent spontaneous Oral contraceptives or hormone replacement Sepsis (< 1 month) Serious lung disease, including pneumonia (< 1 month) Abnormal pulmonary function Acute myocardial infarction Congestive heart failure (< 1 month) History of inflammatory bowel disease Medical patient at bed rest Age 61-74 Arthroscopic surgery Major open surgery (> 45 min) Laparoscopic surgery (> 45 min) Malignancy Confined to bed (> 72 hours) Immobilizing plaster cast Central venous access Age >= 75 History of VTE Family history of VTE Factor V Leiden Prothrombin [id number] Lupus anticoagulant Anticardiolipin antibodies Elevated serum homocysteine Heparin-induced thrombocytopenia Other congenital or acquired thrombophilia Stroke (< 1 month) Elective arthroplasty Hip, pelvis, or leg fracture Acute spinal cord injury (< 1 month) Prophylaxis Regimen: Total Risk Factor Score Risk Level Prophylaxis Regimen 0-1 Low Early ambulation 2 Moderate Order ONE of the following: *Sequential Compression Device (SCD) *Heparin 5000 units SQ BID 3-4 Higher Order ONE of the following medications: *Heparin 5000 units SQ TID *Enoxaparin/Lovenox 40 mg SQ daily (WT < 150 kg, CrCl > 30 mL/min) *Enoxaparin/Lovenox 30 mg SQ daily (WT < 150 kg, CrCl > 10-29 mL/min) *Enoxaparin/Lovenox 30 mg SQ BID (WT < 150 kg, CrCl > 30 mL/min) AND/OR *Sequential Compression Device (SCD) 5 or more Highest Order ONE of the following medications: *Heparin 5000 units SQ TID (Preferred with Epidurals) *Enoxaparin/Lovenox 40 mg SQ daily (WT < 150 kg, CrCl > 30 mL/min) *Enoxaparin/Lovenox 30 mg SQ daily (WT < 150 kg, CrCl > 10-29 mL/min) *Enoxaparin/Lovenox 30 mg SQ BID (WT < 150 kg, CrCl > 30 mL/min) AND *Sequential Compression Device (SCD) Assessment and Plan - Assessment and Plan Plan: 62-year-old male with: A. fib with RVR Hypotension Leukocytosis with suspected sepsis Possible right lower lobe pneumonia Possible cholecystitis Hepatomegaly Occipital lobe lesion Unintentional weight loss Suspected underlying malignancy Plan: Neuro: Will obtain neurosurgery consult in view of occipital lobe lesion. Patient has hardware in right leg and may not be able to get MRI. Clarify with radiology. Cardiovascular: Aggressive fluid resuscitation, Levophed for pressor support. Will add low-dose vasopressin. On amiodarone gtt. for A. fib. Obtain 2D echo. Follow lactic acid Pulmonary: Supplemental O2, bronchodilators as needed. Pulmonary consult for further evaluation of right lower lobe consolidation. GI/liver: Hepatomegaly fluid around gallbladder. Will obtain GI consult for further evaluation. Renal/: IV hydration, strict intake output, monitor and replete electrolytes, follow BN creatinine Heme: Follow CBC Endocrine: Watch for hypoglycemia, SSI for glycemic control if needed. Initiated stress dose steroids. Prophylaxis: PPI/SCDs. Hold Lovenox for GI eval anticipating procedures. If unable to wean off levo fed may require central line placement in a.m. Condition critical, not time spent on critical care excluding procedures 50 minutes
[2018-03-02 02:10] LABS: Bilirubin,Urine Negative (Negative); Clarity,Urine Clear (Clear); Color,Urine Yellow (Yellw/Straw); Glucose,Urine (UA) Negative (Negative); Leukocyte Esterase,Urine Negative (Negative); Mucus,Urine Few /lpf (Occasional); Nitrite,Urine Negative (Negative)
[2018-03-02 02:13] LABS: Amphetamine Screen,Urine Neg (Neg); Barbiturate Screen,Urine Neg (Neg); Cannabinoid Screen,Urine Neg (Neg); Cocaine Screen,Urine Neg (Neg)
[2018-03-02 02:15] LABS: Opiate Screen,Urine Pos (Neg)
[2018-03-02] MEDS ORDERED: Chlorhexidine Gluconate 2% 1 Pack (2 Cloths) TOPICAL PRN (04:00)
[2018-03-02] MEDS: Chlorhexidine Gluconate 2% 1 Pack (2 Cloths) TOPICAL SCH (04:21)
[2018-03-02] MEDS: Piperacil/Tazo 3.375 GM Premix 50 ML IV.SIG SCH ×4 (04:21→21:13)
[2018-03-02] MEDS: Hydrocortisone Sod Succinate 100 MG Vial IV.PUSH SCH ×3 (05:23→21:13)
[2018-03-02 09:29] LABS: Alanine Aminotransferase 125 U/L (12-78); Albumin 1.8 g/dL (3.4-5.0); Alkaline Phosphatase 199 U/L (45-117); Total Protein 6.6 g/dL (6.4-8.2)
[2018-03-02 09:32] LABS: Aspartate Aminotransferase 254 U/L (15-37)
[2018-03-02] MEDS: Senna/Docusate Sodium 8.6/50 MG Tablet PO SCH ×2 (09:33→21:12)
[2018-03-02] MEDS: Pantoprazole Inj 40 MG Vial IV.PUSH SCH (09:34)
[2018-03-02] MEDS: Sod Chloride 0.9% Inj 1,000 ML IV.CONT SCH (09:35)
--- NOTE | 2018-03-02 10:58 | P.CONGI ---
History of Present Illness Consult date: 03/02/18 Consult reason: ?cholecystitis, hepatomegaly Chief complaint: atrial fibrillation in rvr,hypotension,sepsis, History of Present Illness: This is a 62 yo M who presented to the ER yesterday with complaints of left sided chest pain that has been gradually getting worse over the past few week and chest pain. Our service has been consulted to evaluate pt for abnormal CT findings of possible cholecystitis and hepatomegaly. Pt reports some nausea but no emesis, states this is because he is withdrawing from his pain medication. Takes Roxicodone and morphine and states has not had his usual pain meds since yesterday and feels like he is going to be sick. Denies any abdominal pain, however is tender in epigastric area on exam. Denies any changes in bowel habits. Reports a 50-60 lb weight loss over the past six months , unintentional, reports he has been losing muscle. Denies any personal or family history of liver issues. Denies any OTC medication or new prescriptions. Denies ETOH, smoking, and illicit drug use. Denies history of IV drug use. Has 2 tattoos, states both done in tattoo parlors. Denies high risk sexual behaviors. Pt does not think he has ever had an EGD, thinks he has had a colonoscopy in the past but unsure when or the findings. <Tami Aquino - Last Filed: 03/02/18 10:41> Review of Systems Constitutional: Reports weight loss Cardiovascular: Reports chest pain Respiratory: Reports shortness of breath Gastrointestinal: Reports nausea, Denies abdominal pain, Denies black, tarry stools, Denies bright, red blood in stools, Denies constipation, Denies loose stools, Denies vomiting <Tami Aquino - Last Filed: 03/02/18 10:41> [facility] - History History Provided By: Patient - Medical History Medical History: Medical History (Last Updated 03/02/18 @ 01:25 by Reece Meza MD) Edema (Acute) Back pain (Acute) Bone marrow transplant infection (Chronic) - Tobacco History Smoking Status: Former smoker Tobacco Type: Cigarettes - Alcohol History How Often Do You Have a Drink Containing Alcohol: 2 to 3 times a week - Substance Use History Substance History: No History of Abuse - Travel History Recent Travel in the [facility] Within the Last 8 Weeks: No Recent Travel Out of the Country Within the Last 8 Weeks: No - Immunization History Tetanus Immunization: <5 Years Hx Influenza Vaccine This Season: No <Tami Aquino - Last Filed: 03/02/18 10:41> - Medical History Medical History: Medical History (Last Updated 03/02/18 @ 01:25 by Reece Meza MD) Edema (Acute) Back pain (Acute) Bone marrow transplant infection (Chronic) <Gonzalo Bland - Last Filed: 03/02/18 21:46> Medications and Allergies Active Medications: Active Medications Al Hydroxide/Mg Hydroxide (Milk Of Alfie Likayla) 30 ml PO Q12H PRN PRN Reason: Mild Constipation Albuterol (Duoneb Neb (Prn)) 1 ampul NEB Q2HR NEB PRN PRN Reason: WHEEZING Bisacodyl (Dulcolax Supp) 10 mg RECTAL DAILY PRN PRN Reason: SEVERE CONSITIPATION Chlorhexidine Gluconate (Chlorhexidine 2% Cloth) 3 pack TOPICAL DAILY@0400 [facility] Stop: 03/07/18 03:59 Last Admin: 03/02/18 04:21 Dose: 3 pack Chlorhexidine Gluconate (Chlorhexidine 2% Cloth) 3 pack TOPICAL DAILY@0400 PRN PRN Reason: Extra cloth needed Stop: 03/07/18 03:59 Hydrocortisone Sodium Succinate (Solucortef Inj) 100 mg IV.PUSH Q8HR [facility] Last Admin: 03/02/18 05:23 Dose: 100 mg Amiodarone HCl 450 mg/ (Dextrose) 250 mls @ 33.33 mls/hr IV.CONT TITRATE PRN; Protocol PRN Reason: Per Protocol Last Admin: 03/02/18 04:56 Dose: 0.49 mg/min, 16.66 mls/hr Norepinephrine Bitartrate (Levophed-Dextrose 4 Mg/250 Ml Drip) 4 mg in 250 mls @ 7.5 mls/hr IV.SIG TITRATE PRN; Protocol PRN Reason: Per Protocol Last Titration: 03/01/18 23:02 Dose: 4 mcg/min, 15 mls/hr Vancomycin/Sodium Chloride (Vancomycin Inj) 1 gm in 200 mls @ 200 mls/hr IV.SIG [employer] [facility] Sodium Chloride (Ns Inj) 1,000 mls @ 100 mls/hr IV.CONT .Q10H [facility] Last Admin: 03/02/18 09:35 Dose: 100 mls/hr Piperacillin/Tazobactam/Dextrose (Zosyn 3.375 Gm Premix) 50 mls @ 100 mls/hr IV.SIG Q6H [facility] Last Admin: 03/02/18 09:34 Dose: 100 mls/hr Lactulose (Lactulose Liq) 30 ml PO DAILY PRN PRN Reason: SEVERE CONSITIPATION Ondansetron HCl (Zofran Inj) 4 mg IV.PUSH Q6H PRN PRN Reason: NAUSEA OR VOMITING Last Admin: 03/02/18 09:32 Dose: 4 mg Pantoprazole Sodium (Protonix Inj) 40 mg IV.PUSH DAILY [facility] Last Admin: 03/02/18 09:34 Dose: 40 mg Senna/Docusate Sodium (Heather-Colace) 1 tab PO BID [facility] Last Admin: 03/02/18 09:33 Dose: 1 tab Sennosides (Senokot) 17.2 mg PO Q12H PRN PRN Reason: Moderate Constipation Sodium Chloride (Ns Flush) 2 ml IV.FLUSH UNSCH PRN PRN Reason: FLUSH AFTER USING IV ACCESS Last Admin: 03/01/18 22:50 Dose: 2 ml Sodium Chloride (Ns Flush) 2 ml IV.FLUSH BID [facility] Last Admin: 03/02/18 09:33 Dose: 2 ml Sodium Chloride (Ns Flush) 2 ml IV.FLUSH PRN PRN PRN Reason: FLUSH AFTER USING IV ACCESS Terbutaline Sulfate (Brethine Inj) 1 mg SQ UNSCH PRN PRN Reason: For Extravasation Last Admin: 03/01/18 22:48 Dose: 1 mg <Tami Aquino - Last Filed: 03/02/18 10:41> Active Medications: Active Medications Al Hydroxide/Mg Hydroxide (Milk Of Magnesia Liq) 30 ml PO Q12H PRN PRN Reason: Mild Constipation Albuterol (Duoneb Neb (Prn)) 1 ampul NEB Q2HR NEB PRN PRN Reason: WHEEZING Albuterol (Duoneb Neb (Flower)) 1 ampul NEB Q4HR NEB [facility] Last Admin: 03/02/18 19:16 Dose: Not Given Bisacodyl (Dulcolax Supp) 10 mg RECTAL DAILY PRN PRN Reason: SEVERE CONSITIPATION Chlorhexidine Gluconate (Chlorhexidine 2% Cloth) 3 pack TOPICAL DAILY@0400 [facility] Stop: 03/07/18 03:59 Last Admin: 03/02/18 04:21 Dose: 3 pack Chlorhexidine Gluconate (Chlorhexidine 2% Cloth) 3 pack TOPICAL DAILY@0400 PRN PRN Reason: Extra cloth needed Stop: 03/07/18 03:59 Hydrocortisone Sodium Succinate (Solucortef Inj) 100 mg IV.PUSH Q8HR [facility] Last Admin: 03/02/18 21:13 Dose: 100 mg Amiodarone HCl 450 mg/ (Dextrose) 250 mls @ 33.33 mls/hr IV.CONT TITRATE PRN; Protocol PRN Reason: Per Protocol Last Admin: 03/02/18 21:14 Dose: 0.49 mg/min, 16.66 mls/hr Norepinephrine Bitartrate (Levophed-Dextrose 4 Mg/250 Ml Drip) 4 mg in 250 mls @ 7.5 mls/hr IV.SIG TITRATE PRN; Protocol PRN Reason: Per Protocol Last Titration: 03/01/18 23:02 Dose: 4 mcg/min, 15 mls/hr Sodium Chloride (Ns Inj) 1,000 mls @ 100 mls/hr IV.CONT .Q10H [facility] Last Admin: 03/02/18 09:35 Dose: 100 mls/hr Piperacillin/Tazobactam/Dextrose (Zosyn 3.375 Gm Premix) 50 mls @ 100 mls/hr IV.SIG Q6H [facility] Last Admin: 03/02/18 21:13 Dose: 100 mls/hr Lactulose (Lactulose Liq) 30 ml PO DAILY PRN PRN Reason: SEVERE CONSITIPATION Morphine Sulfate (Morphine Inj) 4 mg IV.PUSH Q4H PRN PRN Reason: PAIN 6-10;IF UNABLE TO TAKE PO Last Admin: 03/02/18 21:13 Dose: 4 mg Ondansetron HCl (Zofran Inj) 4 mg IV.PUSH Q6H PRN PRN Reason: NAUSEA OR VOMITING Last Admin: 03/02/18 21:14 Dose: 4 mg Pantoprazole Sodium (Protonix Inj) 40 mg IV.PUSH DAILY [facility] Last Admin: 03/02/18 09:34 Dose: 40 mg Senna/Docusate Sodium (Heather-Colace) 1 tab PO BID [facility] Last Admin: 03/02/18 21:12 Dose: 1 tab Sennosides (Senokot) 17.2 mg PO Q12H PRN PRN Reason: Moderate Constipation Sodium Chloride (Ns Flush) 2 ml IV.FLUSH UNSCH PRN PRN Reason: FLUSH AFTER USING IV ACCESS Last Admin: 03/01/18 22:50 Dose: 2 ml Sodium Chloride (Ns Flush) 2 ml IV.FLUSH BID [facility] Last Admin: 03/02/18 21:11 Dose: 2 ml Sodium Chloride (Ns Flush) 2 ml IV.FLUSH PRN PRN PRN Reason: FLUSH AFTER USING IV ACCESS Terbutaline Sulfate (Brethine Inj) 1 mg SQ UNSCH PRN PRN Reason: For Extravasation Last Admin: 03/01/18 22:48 Dose: 1 mg <Gonzalo Bland E - Last Filed: 03/02/18 21:46> Allergies Allergy/AdvReac Type Severity Reaction Status Date / Time No Known Allergies Allergy Verified 03/02/18 16:51 Home Medications Medication Instructions Recorded Confirmed Type Unable to Obtain Home Meds 03/02/18 03/02/18 History Exam Vital signs: Vital Signs 03/01/18 20:22 03/01/18 20:25 03/01/18 20:42 Temperature 99.5 F Pulse Rate 130 H 167 H Pulse Rate [Radial] 167 H Respiratory Rate 24 18 Blood Pressure 136/87 85/51 L 63/38 L Blood Pressure [Left Arm] 63/38 L Pulse Oximetry 97 100 03/01/18 20:53 03/01/18 21:00 03/01/18 21:02 Temperature Pulse Rate 140 H 134 H 127 H Pulse Rate [Radial] Respiratory Rate 20 28 H 29 H Blood Pressure 81/52 L 79/57 L 89/54 L Blood Pressure [Left Arm] Pulse Oximetry 97 100 95 03/01/18 21:06 03/01/18 21:16 03/01/18 21:24 Temperature 98.9 F Pulse Rate 116 H 97 H 136 H Pulse Rate [Radial] Respiratory Rate 27 H 28 H 20 Blood Pressure 80/58 L 81/47 L 81/53 L Blood Pressure [Left Arm] Pulse Oximetry 100 100 03/01/18 21:32 03/01/18 21:37 03/01/18 22:00 Temperature Pulse Rate 72 126 H Pulse Rate [Radial] Respiratory Rate 20 20 Blood Pressure 105/74 89/58 L Blood Pressure [Left Arm] Pulse Oximetry 99 95 95 03/01/18 22:10 03/01/18 22:30 03/01/18 23:00 Temperature Pulse Rate 110 H 106 H 96 H Pulse Rate [Radial] Respiratory Rate 28 H 20 20 Blood Pressure 89/58 L 88/59 L 90/67 L Blood Pressure [Left Arm] Pulse Oximetry 96 94 L 100 03/01/18 23:37 03/02/18 00:00 03/02/18 00:12 Temperature Pulse Rate 76 66 Pulse Rate [Radial] Respiratory Rate 20 20 20 Blood Pressure 99/64 L 114/74 Blood Pressure [Left Arm] Pulse Oximetry 98 03/02/18 01:27 03/02/18 04:00 03/02/18 08:00 Temperature 97.6 F 97.5 F L Pulse Rate 90 68 75 Pulse Rate [Radial] Respiratory Rate 20 13 Blood Pressure 99/64 L 114/83 147/87 H Blood Pressure [Left Arm] Pulse Oximetry 98 100 100 Intake & Output 03/01/18 03/02/18 03/02/18 18:59 06:59 18:59 Intake Total 1400 / 1400 1000 / 1000 Balance 1400 / 1400 1000 / 1000 Weight 56.3 kg Intake: IV 1400 / 1400 1000 / 1000 Cordarone Inj 450 MG In D5W Inj 250 / 250 241 ML @ 1 MG/MIN 33.33 mls/hr IV.CONT TITRATE PRN Rx#: [id number] NS Inj 1,000 ML @ 100 mls/hr IV 1000 / 1000 .CONT .Q10H [facility] Rx#:[id number] Cordarone Inj 150 MG In D5W Inj 100 / 100 97 ML @ 600 mls/hr IV.SIG ONCE ONE Rx#:[id number] Zosyn 3.375 GM Premix 50 ML @ 50 / 50 100 mls/hr IV.SIG Q6H [facility] Rx#: [id number] NS Inj 1,000 ML @ Wide Open IV. 1000 / 1000 SIG BOLUS ONE Rx#:[id number] - Constitutional no acute distress - Routine HEENT Exam Head: Present: normocephalic, atraumatic - Routine Cardiovascular Exam Present: irregularly irregular - Routine Abdominal Exam Present: soft, normoactive bowel sounds, tenderness (epigastric tenderness ). Absent: distended, rebound, guarding, firm Comments: hepatomegaly - Routine Skin Exam Present: dry, warm - Routine Neurological Exam Present: alert, oriented X3 <Tami Aquino - Last Filed: 03/02/18 10:41> Vital signs: Vital Signs 03/01/18 22:00 03/01/18 22:10 03/01/18 22:30 Temperature Pulse Rate 126 H 110 H 106 H Respiratory Rate 20 28 H 20 Blood Pressure 89/58 L 89/58 L 88/59 L Pulse Oximetry 95 96 94 L 03/01/18 23:00 03/01/18 23:37 03/02/18 00:00 Temperature Pulse Rate 96 H 76 Respiratory Rate 20 20 20 Blood Pressure 90/67 L 99/64 L Pulse Oximetry 100 98 03/02/18 00:12 03/02/18 01:27 03/02/18 04:00 Temperature 97.6 F Pulse Rate 66 90 68 Respiratory Rate 20 20 13 Blood Pressure 114/74 99/64 L 114/83 Pulse Oximetry 98 100 03/02/18 08:00 03/02/18 09:00 03/02/18 11:19 Temperature 97.5 F L 97.5 F L Pulse Rate 75 74 Respiratory Rate 19 Blood Pressure 147/87 H 126/78 Pulse Oximetry 100 100 03/02/18 12:00 03/02/18 12:50 03/02/18 16:00 Temperature 97.5 F L 97.6 F Pulse Rate 71 72 Respiratory Rate 14 14 15 Blood Pressure 106/78 110/68 Pulse Oximetry 100 99 03/02/18 17:14 03/02/18 17:39 03/02/18 20:03 Temperature Pulse Rate 76 Respiratory Rate 16 19 Blood Pressure Pulse Oximetry 94 L Intake & Output 03/02/18 03/02/18 03/03/18 06:59 18:59 06:59 Intake Total 1400 / 1400 1580 / 1580 250 / 250 Output Total 800 / 800 Balance 1400 / 1400 780 / 780 250 / 250 Weight 56.3 kg Intake: IV 1400 / 1400 1100 / 1100 250 / 250 Cordarone Inj 450 MG In D5W Inj 250 / 250 250 / 250 241 ML @ 1 MG/MIN 33.33 mls/hr IV.CONT TITRATE PRN Rx#: [id number] NS Inj 1,000 ML @ 100 mls/hr IV 1000 / 1000 .CONT .Q10H [facility] Rx#:[id number] Cordarone Inj 150 MG In D5W Inj 100 / 100 97 ML @ 600 mls/hr IV.SIG ONCE ONE Rx#:[id number] Zosyn 3.375 GM Premix 50 ML @ 50 / 50 100 / 100 100 mls/hr IV.SIG Q6H [facility] Rx#: [id number] NS Inj 1,000 ML @ Wide Open IV. 1000 / 1000 SIG BOLUS ONE Rx#:[id number] Oral 480 / 480 Output: Urine 800 / 800 Other: Date of Last Bowel Movement 03/01/18 <Gonzalo Bland E - Last Filed: 03/02/18 21:46> Results - Labs CBC & Chem 7: 03/01/18 20:50 03/01/18 20:50 Labs: Laboratory Results - last 24 hr 03/01/18 03/01/18 03/01/18 20:50 20:50 20:50 WBC 28.5 H RBC 4.13 L Hgb 10.3 L Hct 33.8 L MCV 81.7 MCH 25.0 L MCHC 30.6 L RDW 16.4 Plt Count 328 MPV 7.9 Prelim Diff (Auto) Slide review pending Neut % (Auto) 92.8 H Lymph % (Auto) 3.3 L Cass % (Auto) 3.8 Eos % (Auto) 0.0 Baso % (Auto) 0.1 Neut # (Auto) 26.5 H Lymph # (Auto) 0.9 L Cass # (Auto) 1.1 H Eos # (Auto) 0.0 Baso # (Auto) 0.0 WBC Differential Manual diff final Seg Neuts % (Manual) 72 H Band Neuts % (Manual) 19 H Lymphocytes % (Manual) 6 L Monocytes % (Manual) 3 Abs Neuts (Manual) 25.9 H Differential Comment . Toxic Vacuolation Present H Platelet Estimate Normal Platelet Morphology Normal Acanthocytes (Spur) Occ H PT 13.1 H INR 1.3 APTT 28.6 Puncture Site Patient Temperature VBG pH VBG pCO2 VBG pO2 VBG HCO3 VBG O2 Saturation VBG O2 Content VBG Base Excess VBG Carboxyhemoglobin VBG Methemoglobin Hemoglobin O2 Delivery Device Liter Flow Inspired O2 Critical Value Sodium 134 L Potassium 4.4 Chloride 97 L Carbon Dioxide 21.9 Anion Gap 15 BUN 15 Creatinine 1.96 H Estimated GFR 35 L Random Glucose 81 Lactic Acid Calcium 8.2 L Total Bilirubin 0.6 Direct Bilirubin Indirect Bilirubin AST 110 H ALT 47 Alkaline Phosphatase 280 H Ammonia Total Creatine Kinase 75 Troponin I 0.03 B-Natriuretic Peptide Total Protein 7.1 Albumin 2.0 L Urine Color Urine Clarity Urine pH Ur Specific Francisco Urine Protein Urine Glucose (UA) Urine Ketones Urine Occult Blood Urine Nitrate Urine Bilirubin Urine Urobilinogen Ur Leukocyte Esterase Urine RBC Urine WBC Urine Mucus Micro UA Comment Urine Culture Comments Nasal Screen MRSA (PCR) Urine Opiates Screen Ur Barbiturates Screen Ur Amphetamines Screen U Benzodiazepines Scrn Urine Cocaine Screen U Cannabinoids Screen Serum Alcohol Blood Type Blood Type Recheck Antibody Screen 03/01/18 03/01/18 03/01/18 20:50 21:10 21:29 WBC RBC Hgb Hct MCV MCH MCHC RDW Plt Count MPV Prelim Diff (Auto) Neut % (Auto) Lymph % (Auto) Cass % (Auto) Eos % (Auto) Baso % (Auto) Neut # (Auto) Lymph # (Auto) Cass # (Auto) Eos # (Auto) Baso # (Auto) WBC Differential Seg Neuts % (Manual) Band Neuts % (Manual) Lymphocytes % (Manual) Monocytes % (Manual) Abs Neuts (Manual) Differential Comment Toxic Vacuolation Platelet Estimate Platelet Morphology Acanthocytes (Spur) PT INR APTT Puncture Site By rn from iv site Patient Temperature 98.6 VBG pH 7.29 L* VBG pCO2 50 H VBG pO2 20 L* VBG HCO3 23 VBG O2 Saturation 20 L VBG O2 Content 2.6 L VBG Base Excess -2.8 L VBG Carboxyhemoglobin 1.8 VBG Methemoglobin 0.6 Hemoglobin 9.2 L O2 Delivery Device Nasal cannula Liter Flow 4.00 Inspired O2 21 Critical Value Yes Sodium Potassium Chloride Carbon Dioxide Anion Gap BUN Creatinine Estimated GFR Random Glucose Lactic Acid Calcium Total Bilirubin Direct Bilirubin Indirect Bilirubin AST ALT Alkaline Phosphatase Ammonia 16 Total Creatine Kinase Troponin I B-Natriuretic Peptide 511 H Total Protein Albumin Urine Color Urine Clarity Urine pH Ur Specific [place] Urine Protein Urine Glucose (UA) Urine Ketones Urine Occult Blood Urine Nitrate Urine Bilirubin Urine Urobilinogen Ur Leukocyte Esterase Urine RBC Urine WBC Urine Mucus Micro UA Comment Urine Culture Comments Nasal Screen MRSA (PCR) Urine Opiates Screen Ur Barbiturates Screen Ur Amphetamines Screen U Benzodiazepines Scrn Urine Cocaine Screen U Cannabinoids Screen Serum Alcohol Blood Type Blood Type Recheck Antibody Screen 03/01/18 03/01/18 03/01/18 21:29 23:00 23:00 WBC RBC Hgb Hct MCV MCH MCHC RDW Plt Count MPV Prelim Diff (Auto) Neut % (Auto) Lymph % (Auto) Cass % (Auto) Eos % (Auto) Baso % (Auto) Neut # (Auto) Lymph # (Auto) Cass # (Auto) Eos # (Auto) Baso # (Auto) WBC Differential Seg Neuts % (Manual) Band Neuts % (Manual) Lymphocytes % (Manual) Monocytes % (Manual) Abs Neuts (Manual) Differential Comment Toxic Vacuolation Platelet Estimate Platelet Morphology Acanthocytes (Spur) PT INR APTT Puncture Site Patient Temperature VBG pH VBG pCO2 VBG pO2 VBG HCO3 VBG O2 Saturation VBG O2 Content VBG Base Excess VBG Carboxyhemoglobin VBG Methemoglobin Hemoglobin O2 Delivery Device Liter Flow Inspired O2 Critical Value Sodium Potassium Chloride Carbon Dioxide Anion Gap BUN Creatinine Estimated GFR Random Glucose Lactic Acid 3.0 H Calcium Total Bilirubin Direct Bilirubin Indirect Bilirubin AST ALT Alkaline Phosphatase Ammonia Total Creatine Kinase Troponin I B-Natriuretic Peptide Total Protein Albumin Urine Color Urine Clarity Urine pH Ur Specific [place] Urine Protein Urine Glucose (UA) Urine Ketones Urine Occult Blood Urine Nitrate Urine Bilirubin Urine Urobilinogen Ur Leukocyte Esterase Urine RBC Urine WBC Urine Mucus Micro UA Comment Urine Culture Comments Nasal Screen MRSA (PCR) Urine Opiates Screen Ur Barbiturates Screen Ur Amphetamines Screen U Benzodiazepines Scrn Urine Cocaine Screen U Cannabinoids Screen Serum Alcohol Less than 3 Blood Type A Positive Blood Type Recheck Required Antibody Screen Negative 03/02/18 03/02/18 03/02/18 01:42 01:55 01:55 WBC RBC Hgb Hct MCV MCH MCHC RDW Plt Count MPV Prelim Diff (Auto) Neut % (Auto) Lymph % (Auto) Cass % (Auto) Eos % (Auto) Baso % (Auto) Neut # (Auto) Lymph # (Auto) Cass # (Auto) Eos # (Auto) Baso # (Auto) WBC Differential Seg Neuts % (Manual) Band Neuts % (Manual) Lymphocytes % (Manual) Monocytes % (Manual) Abs Neuts (Manual) Differential Comment Toxic Vacuolation Platelet Estimate Platelet Morphology Acanthocytes (Spur) PT INR APTT Puncture Site Patient Temperature VBG pH VBG pCO2 VBG pO2 VBG HCO3 VBG O2 Saturation VBG O2 Content VBG Base Excess VBG Carboxyhemoglobin VBG Methemoglobin Hemoglobin O2 Delivery Device Liter Flow Inspired O2 Critical Value Sodium Potassium Chloride Carbon Dioxide Anion Gap BUN Creatinine Estimated GFR Random Glucose Lactic Acid 2.7 H Calcium Total Bilirubin Direct Bilirubin Indirect Bilirubin AST ALT Alkaline Phosphatase Ammonia Total Creatine Kinase Troponin I B-Natriuretic Peptide Total Protein Albumin Urine Color Yellow Urine Clarity Clear Urine pH 5.0 Ur Specific [place] 1.020 Urine Protein Negative Urine Glucose (UA) Negative Urine Ketones Negative Urine Occult Blood Small H Urine Nitrate Negative Urine Bilirubin Negative Urine Urobilinogen Less than 2 Ur Leukocyte Esterase Negative Urine RBC 1 Urine WBC 1 Urine Mucus Few H Micro UA Comment Culture not ind Urine Culture Comments Culture not ind Nasal Screen MRSA (PCR) Urine Opiates Screen Pos H Ur Barbiturates Screen Neg Ur Amphetamines Screen Neg U Benzodiazepines Scrn Neg Urine Cocaine Screen Neg U Cannabinoids Screen Neg Serum Alcohol Blood Type Blood Type Recheck Antibody Screen 03/02/18 03/02/18 02:45 08:24 WBC RBC Hgb Hct MCV MCH MCHC RDW Plt Count MPV Prelim Diff (Auto) Neut % (Auto) Lymph % (Auto) Cass % (Auto) Eos % (Auto) Baso % (Auto) Neut # (Auto) Lymph # (Auto) Cass # (Auto) Eos # (Auto) Baso # (Auto) WBC Differential Seg Neuts % (Manual) Band Neuts % (Manual) Lymphocytes % (Manual) Monocytes % (Manual) Abs Neuts (Manual) Differential Comment Toxic Vacuolation Platelet Estimate Platelet Morphology Acanthocytes (Spur) PT INR APTT Puncture Site Patient Temperature VBG pH VBG pCO2 VBG pO2 VBG HCO3 VBG O2 Saturation VBG O2 Content VBG Base Excess VBG Carboxyhemoglobin VBG Methemoglobin Hemoglobin O2 Delivery Device Liter Flow Inspired O2 Critical Value Sodium Potassium Chloride Carbon Dioxide Anion Gap BUN Creatinine Estimated GFR Random Glucose Lactic Acid Calcium Total Bilirubin 0.9 Direct Bilirubin Less than 0.1 Indirect Bilirubin 0.8 AST 254 H ALT 125 H Alkaline Phosphatase 199 H Ammonia Total Creatine Kinase Troponin I B-Natriuretic Peptide Total Protein 6.6 Albumin 1.8 L Urine Color Urine Clarity Urine pH Ur Specific [place] Urine Protein Urine Glucose (UA) Urine Ketones Urine Occult Blood Urine Nitrate Urine Bilirubin Urine Urobilinogen Ur Leukocyte Esterase Urine RBC Urine WBC Urine Mucus Micro UA Comment Urine Culture Comments Nasal Screen MRSA (PCR) Not detected Urine Opiates Screen Ur Barbiturates Screen Ur Amphetamines Screen U Benzodiazepines Scrn Urine Cocaine Screen U Cannabinoids Screen Serum Alcohol Blood Type Blood Type Recheck Antibody Screen - Imaging Impressions Chest X-Ray 03/01/18 20:39 CONCLUSION: Left mid and lower lung lobar consolidation. Venous Doppler Study 03/01/18 20:39 CONCLUSION: 1. The study is negative for bilateral lower extremity deep venous thrombosis. Chest CTA 03/01/18 21:06 CONCLUSION: 1. This study is negative for pulmonary embolism. 2. Dense consolidation in the right lower lobe without air bronchograms and with truncation of the bronchus to the right lower lobe. This suggests an obstructing lesion. Recommend direct visualization with bronchoscopy. 3. Multiple right-sided pleural and subpleural nodules measuring up to 2 cm in size. 4. Scattered areas of subcutaneous and deep soft tissue gas in the low neck and supraclavicular region. Abdomen/Pelvis CT 03/01/18 21:29 CONCLUSION: 1. Hepatomegaly without focal lesion. 2. Prominent amount of pericholecystic fluid without calcified gallstones suggests possible acalculous cholecystitis. 3. Abnormal appearance to the right lower lung, described on CT pulmonary angiogram report. 4. Bilateral mildly prominent inguinal lymph nodes. 5. Moderately distended stomach. Head CT 03/01/18 21:38 CONCLUSION: 1. Findings suggest a 6 mm mass in the left occipital white matter. Recommend further characterization using MRI with and without contrast. <aTmi Aquino - Last Filed: 03/02/18 10:41> - Labs CBC & Chem 7: 03/02/18 12:44 03/02/18 12:44 Labs: Laboratory Results - last 24 hr 03/01/18 03/01/18 03/01/18 20:50 20:50 20:50 WBC RBC Hgb Hct MCV MCH MCHC RDW Plt Count MPV WBC Differential Manual diff final Seg Neuts % (Manual) 72 H Band Neuts % (Manual) 19 H Lymphocytes % (Manual) 6 L Monocytes % (Manual) 3 Abs Neuts (Manual) 25.9 H Toxic Vacuolation Present H Platelet Estimate Normal Platelet Morphology Normal Acanthocytes (Spur) Occ H PT 13.1 H INR 1.3 APTT 28.6 Sodium 134 L Potassium 4.4 Chloride 97 L Carbon Dioxide 21.9 Anion Gap 15 BUN 15 Creatinine 1.96 H Estimated GFR 35 L Random Glucose 81 Lactic Acid Calcium 8.2 L Total Bilirubin 0.6 Direct Bilirubin Indirect Bilirubin AST 110 H ALT 47 Alkaline Phosphatase 280 H Ammonia Total Creatine Kinase 75 Troponin I 0.03 B-Natriuretic Peptide Total Protein 7.1 Albumin 2.0 L Lipase Urine Color Urine Clarity Urine pH Ur Specific [place] Urine Protein Urine Glucose (UA) Urine Ketones Urine Occult Blood Urine Nitrate Urine Bilirubin Urine Urobilinogen Ur Leukocyte Esterase Urine RBC Urine WBC Urine Mucus Micro UA Comment Urine Culture Comments Nasal Screen MRSA (PCR) Urine Opiates Screen Ur Barbiturates Screen Ur Amphetamines Screen U Benzodiazepines Scrn Urine Cocaine Screen U Cannabinoids Screen Serum Alcohol Hepatitis A IgM Ab Hep Bs Antigen Hep B Core IgM Ab Hep C IgG Ab Blood Type Blood Type Recheck Antibody Screen 03/01/18 03/01/18 03/01/18 20:50 21:29 21:29 WBC RBC Hgb Hct MCV MCH MCHC RDW Plt Count MPV WBC Differential Seg Neuts % (Manual) Band Neuts % (Manual) Lymphocytes % (Manual) Monocytes % (Manual) Abs Neuts (Manual) Toxic Vacuolation Platelet Estimate Platelet Morphology Acanthocytes (Spur) PT INR APTT Sodium Potassium Chloride Carbon Dioxide Anion Gap BUN Creatinine Estimated GFR Random Glucose Lactic Acid Calcium Total Bilirubin Direct Bilirubin Indirect Bilirubin AST ALT Alkaline Phosphatase Ammonia 16 Total Creatine Kinase Troponin I B-Natriuretic Peptide 511 H Total Protein Albumin Lipase Urine Color Urine Clarity Urine pH Ur Specific [place] Urine Protein Urine Glucose (UA) Urine Ketones Urine Occult Blood Urine Nitrate Urine Bilirubin Urine Urobilinogen Ur Leukocyte Esterase Urine RBC Urine WBC Urine Mucus Micro UA Comment Urine Culture Comments Nasal Screen MRSA (PCR) Urine Opiates Screen Ur Barbiturates Screen Ur Amphetamines Screen U Benzodiazepines Scrn Urine Cocaine Screen U Cannabinoids Screen Serum Alcohol Less than 3 Hepatitis A IgM Ab Hep Bs Antigen Hep B Core IgM Ab Hep C IgG Ab Blood Type Blood Type Recheck Antibody Screen 03/01/18 03/01/18 03/02/18 23:00 23:00 01:42 WBC RBC Hgb Hct MCV MCH MCHC RDW Plt Count MPV WBC Differential Seg Neuts % (Manual) Band Neuts % (Manual) Lymphocytes % (Manual) Monocytes % (Manual) Abs Neuts (Manual) Toxic Vacuolation Platelet Estimate Platelet Morphology Acanthocytes (Spur) PT INR APTT Sodium Potassium Chloride Carbon Dioxide Anion Gap BUN Creatinine Estimated GFR Random Glucose Lactic Acid 3.0 H 2.7 H Calcium Total Bilirubin Direct Bilirubin Indirect Bilirubin AST ALT Alkaline Phosphatase Ammonia Total Creatine Kinase Troponin I B-Natriuretic Peptide Total Protein Albumin Lipase Urine Color Urine Clarity Urine pH Ur Specific [place] Urine Protein Urine Glucose (UA) Urine Ketones Urine Occult Blood Urine Nitrate Urine Bilirubin Urine Urobilinogen Ur Leukocyte Esterase Urine RBC Urine WBC Urine Mucus Micro UA Comment Urine Culture Comments Nasal Screen MRSA (PCR) Urine Opiates Screen Ur Barbiturates Screen Ur Amphetamines Screen U Benzodiazepines Scrn Urine Cocaine Screen U Cannabinoids Screen Serum Alcohol Hepatitis A IgM Ab Hep Bs Antigen Hep B Core IgM Ab Hep C IgG Ab Blood Type A Positive Blood Type Recheck Required Antibody Screen Negative 03/02/18 03/02/18 03/02/18 01:55 01:55 02:45 WBC RBC Hgb Hct MCV MCH MCHC RDW Plt Count MPV WBC Differential Seg Neuts % (Manual) Band Neuts % (Manual) Lymphocytes % (Manual) Monocytes % (Manual) Abs Neuts (Manual) Toxic Vacuolation Platelet Estimate Platelet Morphology Acanthocytes (Spur) PT INR APTT Sodium Potassium Chloride Carbon Dioxide Anion Gap BUN Creatinine Estimated GFR Random Glucose Lactic Acid Calcium Total Bilirubin Direct Bilirubin Indirect Bilirubin AST ALT Alkaline Phosphatase Ammonia Total Creatine Kinase Troponin I B-Natriuretic Peptide Total Protein Albumin Lipase Urine Color Yellow Urine Clarity Clear Urine pH 5.0 Ur Specific [place] 1.020 Urine Protein Negative Urine Glucose (UA) Negative Urine Ketones Negative Urine Occult Blood Small H Urine Nitrate Negative Urine Bilirubin Negative Urine Urobilinogen Less than 2 Ur Leukocyte Esterase Negative Urine RBC 1 Urine WBC 1 Urine Mucus Few H Micro UA Comment Culture not ind Urine Culture Comments Culture not ind Nasal Screen MRSA (PCR) Not detected Urine Opiates Screen Pos H Ur Barbiturates Screen Neg Ur Amphetamines Screen Neg U Benzodiazepines Scrn Neg Urine Cocaine Screen Neg U Cannabinoids Screen Neg Serum Alcohol Hepatitis A IgM Ab Hep Bs Antigen Hep B Core IgM Ab Hep C IgG Ab Blood Type Blood Type Recheck Antibody Screen 03/02/18 03/02/18 03/02/18 08:24 12:44 12:44 WBC RBC Hgb Hct MCV MCH MCHC RDW Plt Count MPV WBC Differential Seg Neuts % (Manual) Band Neuts % (Manual) Lymphocytes % (Manual) Monocytes % (Manual) Abs Neuts (Manual) Toxic Vacuolation Platelet Estimate Platelet Morphology Acanthocytes (Spur) PT INR APTT Sodium Potassium Chloride Carbon Dioxide Anion Gap BUN Creatinine Estimated GFR Random Glucose Lactic Acid Calcium Total Bilirubin 0.9 Direct Bilirubin Less than 0.1 Indirect Bilirubin 0.8 AST 254 H ALT 125 H Alkaline Phosphatase 199 H Ammonia 20 Total Creatine Kinase Troponin I B-Natriuretic Peptide Total Protein 6.6 Albumin 1.8 L Lipase 33 L Urine Color Urine Clarity Urine pH Ur Specific [place] Urine Protein Urine Glucose (UA) Urine Ketones Urine Occult Blood Urine Nitrate Urine Bilirubin Urine Urobilinogen Ur Leukocyte Esterase Urine RBC Urine WBC Urine Mucus Micro UA Comment Urine Culture Comments Nasal Screen MRSA (PCR) Urine Opiates Screen Ur Barbiturates Screen Ur Amphetamines Screen U Benzodiazepines Scrn Urine Cocaine Screen U Cannabinoids Screen Serum Alcohol Hepatitis A IgM Ab Hep Bs Antigen Hep B Core IgM Ab Hep C IgG Ab Blood Type Blood Type Recheck Antibody Screen 03/02/18 03/02/18 03/02/18 12:44 12:44 12:44 WBC 34.1 H RBC 4.01 L Hgb 10.2 L Hct 32.7 L MCV 81.5 MCH 25.5 L MCHC 31.2 L RDW 17.0 Plt Count 260 MPV 7.7 WBC Differential Seg Neuts % (Manual) Band Neuts % (Manual) Lymphocytes % (Manual) Monocytes % (Manual) Abs Neuts (Manual) Toxic Vacuolation Platelet Estimate Platelet Morphology Acanthocytes (Spur) PT INR APTT Sodium 138 Potassium 4.3 Chloride 105 D Carbon Dioxide 22.4 Anion Gap 11 BUN 18 Creatinine 1.15 Estimated GFR 64 L Random Glucose 101 Lactic Acid Calcium 8.0 L Total Bilirubin 0.6 Direct Bilirubin Indirect Bilirubin AST 297 H ALT 149 H Alkaline Phosphatase 174 H Ammonia Total Creatine Kinase Troponin I B-Natriuretic Peptide Total Protein 6.4 Albumin 1.9 L Lipase Urine Color Urine Clarity Urine pH Ur Specific [place] Urine Protein Urine Glucose (UA) Urine Ketones Urine Occult Blood Urine Nitrate Urine Bilirubin Urine Urobilinogen Ur Leukocyte Esterase Urine RBC Urine WBC Urine Mucus Micro UA Comment Urine Culture Comments Nasal Screen MRSA (PCR) Urine Opiates Screen Ur Barbiturates Screen Ur Amphetamines Screen U Benzodiazepines Scrn Urine Cocaine Screen U Cannabinoids Screen Serum Alcohol Hepatitis A IgM Ab Nonreactive Hep Bs Antigen Nonreactive Hep B Core IgM Ab Nonreactive Hep C IgG Ab Reactive H Blood Type Blood Type Recheck Antibody Screen - Imaging Impressions Chest X-Ray 03/01/18 20:39 CONCLUSION: Left mid and lower lung lobar consolidation. Venous Doppler Study 03/01/18 20:39 CONCLUSION: 1. The study is negative for bilateral lower extremity deep venous thrombosis. Chest CTA 03/01/18 21:06 CONCLUSION: 1. This study is negative for pulmonary embolism. 2. Dense consolidation in the right lower lobe without air bronchograms and with truncation of the bronchus to the right lower lobe. This suggests an obstructing lesion. Recommend direct visualization with bronchoscopy. 3. Multiple right-sided pleural and subpleural nodules measuring up to 2 cm in size. 4. Scattered areas of subcutaneous and deep soft tissue gas in the low neck and supraclavicular region. Abdomen/Pelvis CT 03/01/18 21:29 CONCLUSION: 1. Hepatomegaly without focal lesion. 2. Prominent amount of pericholecystic fluid without calcified gallstones suggests possible acalculous cholecystitis. 3. Abnormal appearance to the right lower lung, described on CT pulmonary angiogram report. 4. Bilateral mildly prominent inguinal lymph nodes. 5. Moderately distended stomach. Head CT 03/01/18 21:38 CONCLUSION: 1. Findings suggest a 6 mm mass in the left occipital white matter. Recommend further characterization using MRI with and without contrast. Gallbladder Ultrasound 03/02/18 00:00 CONCLUSION: 1. No evidence of gallstones or biliary tract obstruction. 2. There is thickening of the gallbladder wall 9 mm suggestive of at least chronic gallbladder disease. 3. Increased echogenicity of the liver parenchyma suggestive of fatty infiltration and/or hepatocellular disease. Head MRI 03/02/18 00:00 CONCLUSION: 1. The examination demonstrates a 0.8 x 0.8 x 0.8 mm homogeneously enhancing mass in the subependymal region of the posterior horn of the left lateral ventricle. Primary consideration would be a focal metastatic lesion. 2. There are some scattered punctate areas of abnormal restricted diffusion signal in the watershed distribution posteriorly on the left. 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 <Gonzalo Bland - Last Filed: 03/02/18 21:46> Assessment and Plan (1) Hepatomegaly Status: Acute Code(s): R16.0 - Hepatomegaly, not elsewhere classified - Plan Assessment: - Hepatomegaly on imaging- Pt reports some nausea but states this is secondary to him withdrawing from his home pain medication that he has not had since yesterday. Normally on Roxicodone and Morphine. Denies personal or family history of liver issues. Denies Tylenol and any other OTC medication. No new prescription medication. Denies ETOH use, drug use, history of IV drug use, high risk sexual behaviors. Has 2 tattoos, both done in tattoo parlors. LFTs trending up from yesterday AST-254 ALT-125 Alk phos-199 T bili-0.9 - Possible acalculous cholecystitis seen on CT- Leukocytosis- pt with some epigastric tenderness but denies tenderness to RUQ CT abdomen and pelvis W IV contrast --> Hepatomegaly without focal lesion. Prominent amount of pericholecystic fluid without calcified gallstones suggests possible acalculous cholecystitis. Abnormal appearance to the right lower lung, described on CT pulmonary angiogram report. Bilateral mildly prominent inguinal lymph nodes. Moderately distended stomach. - SOB- respiratory acidosis - A-fib RVR on admission, new, rate controlled Plan: US gallbladder Hepatitis panel GS consult Lipase Ammonia Further recommendations based on clinical course and results of above Pt has been seen and examined by myself and Dr. Bland and this note is written on his behalf <Tami Aquino - Last Filed: 03/02/18 10:41> (1) Hepatomegaly Status: Acute Code(s): R16.0 - Hepatomegaly, not elsewhere classified - Attending Attestation Patient seen and examined Agree with above Continue with current supportive care Monitor labs Patient presenting with chest pain and shortness of breath has a abdominal CT that shows hepatomegaly and an abnormal gallbladder he is noted to be anemic with elevated liver function tests and severe leukocytosis Abdominal ultrasound reveals probable fatty liver and thickening of the gallbladder suggesting possible chronic cholecystitis Presentation does not correlate with acute cholecystitis and most likely the gallbladder is a bystander at this point His hepatitis profile is come back positive for hep C but this does not explain the rising liver function tests We will pursue full liver workup Would recommend hematology evaluation Further recommendations shall depend on hospital course <Gonzalo Bland - Last Filed: 03/02/18 21:46>
--- NOTE | 2018-03-02 11:42 | P.CONNS ---
History of Present Illness Service: Neurosurgery Consult date: 03/02/18 Requesting Physician: Reece Meza Reason for Consult: brain lesion Primary Care Provider: UNKNOWN Family Provider: UNKNOWN Chief Complaint: Chest pain, Not feeling well for few weeks History of Present Illness: Rey is a 62-year-old male who presented to ER with right-sided chest pain were on for a few days with some shortness of breath. He has not been feeling well for the last 2 weeks with progressive generalized weakness. He lost weight about 50-60 pounds in the last 6 months which is unintentional. He denies any nausea vomiting or diarrhea. Denies any melena or rectal bleeding. He was found to be in A. fib with RVR on arrival in the ER. He received IV Lopressor and subsequently dropped his blood pressure and she was started on Levophed for pressor support. After obtaining blood cultures patient was started on IV Zosyn. He underwent imaging studies which revealed hepatomegaly, right lower lobe consolidation and a question of fluid around the gallbladder suggesting cholecystitis. Head CT revealed a questionable lesion in the occipital lobe. Patient was accepted for admission by critical care medicine service. Neurosurgery consultation was requested [facility] - History History Provided By: Patient - Medical History Medical History: Medical History (Last Reviewed 03/01/18 @ 22:18 by ANDREW Garcia) Edema (Acute) Back pain (Acute) Bone marrow transplant infection (Acute) - Tobacco History Smoking Status: Former smoker Tobacco Type: Cigarettes - Alcohol History How Often Do You Have a Drink Containing Alcohol: 2 to 3 times a week - Substance Use History Substance History: No History of Abuse - Travel History Recent Travel in the [place] Within the Last 8 Weeks: No Recent Travel Out of the Country Within the Last 8 Weeks: No - Immunization History Tetanus Immunization: <5 Years Hx Influenza Vaccine This Season: No Medications and Allergies Active Medications: Active Medications Al Hydroxide/Mg Hydroxide (Milk Of Alfie Liq) 30 ml PO Q12H PRN PRN Reason: Mild Constipation Albuterol (Duoneb Neb (Prn)) 1 ampul NEB Q2HR NEB PRN PRN Reason: WHEEZING Bisacodyl (Dulcolax Supp) 10 mg RECTAL DAILY PRN PRN Reason: SEVERE CONSITIPATION Chlorhexidine Gluconate (Chlorhexidine 2% Cloth) 3 pack TOPICAL DAILY@0400 [facility] Stop: 03/07/18 03:59 Chlorhexidine Gluconate (Chlorhexidine 2% Cloth) 3 pack TOPICAL DAILY@0400 PRN PRN Reason: Extra cloth needed Stop: 03/07/18 03:59 Hydrocortisone Sodium Succinate (Solucortef Inj) 100 mg IV.PUSH Q8HR FLOWER Amiodarone HCl 450 mg/ (Dextrose) 250 mls @ 33.33 mls/hr IV.CONT TITRATE PRN; Protocol PRN Reason: Per Protocol Last Admin: 03/01/18 22:49 Dose: 1 mg/min, 33.33 mls/hr Norepinephrine Bitartrate (Levophed-Dextrose 4 Mg/250 Ml Drip) 4 mg in 250 mls @ 7.5 mls/hr IV.SIG TITRATE PRN; Protocol PRN Reason: Per Protocol Last Titration: 03/01/18 23:02 Dose: 4 mcg/min, 15 mls/hr Vancomycin/Sodium Chloride (Vancomycin Inj) 1 gm in 200 mls @ 200 mls/hr IV.SIG [employer] FLOWER Sodium Chloride (Ns Inj) 1,000 mls @ 100 mls/hr IV.CONT .Q10H FLOWER Last Admin: 03/01/18 23:48 Dose: 100 mls/hr Piperacillin/Tazobactam/Dextrose (Zosyn 3.375 Gm Premix) 50 mls @ 100 mls/hr IV.SIG Q6H FLOWER Lactulose (Lactulose Liq) 30 ml PO DAILY PRN PRN Reason: SEVERE CONSITIPATION Ondansetron HCl (Zofran Inj) 4 mg IV.PUSH Q6H PRN PRN Reason: NAUSEA OR VOMITING Pantoprazole Sodium (Protonix Inj) 40 mg IV.PUSH DAILY [facility] Senna/Docusate Sodium (Heather-Colace) 1 tab PO BID [facility] Sennosides (Senokot) 17.2 mg PO Q12H PRN PRN Reason: Moderate Constipation Sodium Chloride (Ns Flush) 2 ml IV.FLUSH UNSCH PRN PRN Reason: FLUSH AFTER USING IV ACCESS Last Admin: 03/01/18 22:50 Dose: 2 ml Sodium Chloride (Ns Flush) 2 ml IV.FLUSH BID FLOWER Sodium Chloride (Ns Flush) 2 ml IV.FLUSH PRN PRN PRN Reason: FLUSH AFTER USING IV ACCESS Terbutaline Sulfate (Brethine Inj) 1 mg SQ UNSCH PRN PRN Reason: For Extravasation Last Admin: 03/01/18 22:48 Dose: 1 mg Allergies Allergy/AdvReac Type Severity Reaction Status Date / Time Unable to Assess Allergy Unknown Unverified 03/30/17 06:11 No Known Allergies Allergy Uncoded 07/29/15 10:32 Results - Labs CBC & Chem 7: 03/01/18 20:50 03/01/18 20:50 Labs: Short CBC 03/01/18 Range/Units 20:50 WBC 28.5 H (4.0-11.0) th/mm3 Hgb 10.3 L (13.0-17.0) gm/dL Hct 33.8 L (39.0-51.0) % Plt Count 328 (150-450) th/mm3 BMP 03/01/18 20:50 Sodium 134 L Potassium 4.4 Chloride 97 L Carbon Dioxide 21.9 BUN 15 Creatinine 1.96 H Calcium 8.2 L Cardiac Enzymes 03/01/18 Range/Units 20:50 Total Creatine Kinase 75 (39-308) U/L Troponin I 0.03 (0.02-0.05) ng/mL Liver Function 03/01/18 Range/Units 20:50 Total Bilirubin 0.6 (0.2-1.0) mg/dL AST 110 H (15-37) U/L ALT 47 (12-78) U/L Alkaline Phosphatase 280 H (45-117) U/L Albumin 2.0 L (3.4-5.0) g/dL - Imaging Review of Systems All other systems reviewed negative except as stated in [facility] - History History Provided By: Patient - Medical History Medical History: Medical History (Last Reviewed 03/02/18 @ 11:38 by Silvano Crowe MD) Edema (Acute) Back pain (Acute) Bone marrow transplant infection (Chronic) - Tobacco History Tobacco Type: Cigarettes - Alcohol History How Often Do You Have a Drink Containing Alcohol: 2 to 3 times a week - Substance Use History Substance History: No History of Abuse - Travel History Recent Travel in the [facility] [place] Within the Last 8 Weeks: No Recent Travel Out of the Country Within the Last 8 Weeks: No - Immunization History Tetanus Immunization: <5 Years Hx Influenza Vaccine This Season: No Medications and Allergies Active Medications: Active Medications Al Hydroxide/Mg Hydroxide (Milk Of Magnesia Liq) 30 ml PO Q12H PRN PRN Reason: Mild Constipation Albuterol (Duoneb Neb (Prn)) 1 ampul NEB Q2HR NEB PRN PRN Reason: WHEEZING Albuterol (Duoneb Neb (Flower)) 1 ampul NEB Q4HR NEB [facility] Bisacodyl (Dulcolax Supp) 10 mg RECTAL DAILY PRN PRN Reason: SEVERE CONSITIPATION Chlorhexidine Gluconate (Chlorhexidine 2% Cloth) 3 pack TOPICAL DAILY@0400 [facility] Stop: 03/07/18 03:59 Last Admin: 03/02/18 04:21 Dose: 3 pack Chlorhexidine Gluconate (Chlorhexidine 2% Cloth) 3 pack TOPICAL DAILY@0400 PRN PRN Reason: Extra cloth needed Stop: 03/07/18 03:59 Hydrocortisone Sodium Succinate (Solucortef Inj) 100 mg IV.PUSH Q8HR [facility] Last Admin: 03/02/18 05:23 Dose: 100 mg Amiodarone HCl 450 mg/ (Dextrose) 250 mls @ 33.33 mls/hr IV.CONT TITRATE PRN; Protocol PRN Reason: Per Protocol Last Admin: 03/02/18 04:56 Dose: 0.49 mg/min, 16.66 mls/hr Norepinephrine Bitartrate (Levophed-Dextrose 4 Mg/250 Ml Drip) 4 mg in 250 mls @ 7.5 mls/hr IV.SIG TITRATE PRN; Protocol PRN Reason: Per Protocol Last Titration: 03/01/18 23:02 Dose: 4 mcg/min, 15 mls/hr Sodium Chloride (Ns Inj) 1,000 mls @ 100 mls/hr IV.CONT .Q10H [facility] Last Admin: 03/02/18 09:35 Dose: 100 mls/hr Piperacillin/Tazobactam/Dextrose (Zosyn 3.375 Gm Premix) 50 mls @ 100 mls/hr IV.SIG Q6H [facility] Last Admin: 03/02/18 09:34 Dose: 100 mls/hr Lactulose (Lactulose Liq) 30 ml PO DAILY PRN PRN Reason: SEVERE CONSITIPATION Morphine Sulfate (Morphine Inj) 4 mg IV.PUSH Q4H PRN PRN Reason: PAIN 6-10;IF UNABLE TO TAKE PO Ondansetron HCl (Zofran Inj) 4 mg IV.PUSH Q6H PRN PRN Reason: NAUSEA OR VOMITING Last Admin: 03/02/18 09:32 Dose: 4 mg Pantoprazole Sodium (Protonix Inj) 40 mg IV.PUSH DAILY [facility] Last Admin: 03/02/18 09:34 Dose: 40 mg Senna/Docusate Sodium (Heather-Colace) 1 tab PO BID [facility] Last Admin: 03/02/18 09:33 Dose: 1 tab Sennosides (Senokot) 17.2 mg PO Q12H PRN PRN Reason: Moderate Constipation Sodium Chloride (Ns Flush) 2 ml IV.FLUSH UNSCH PRN PRN Reason: FLUSH AFTER USING IV ACCESS Last Admin: 03/01/18 22:50 Dose: 2 ml Sodium Chloride (Ns Flush) 2 ml IV.FLUSH BID [facility] Last Admin: 03/02/18 09:33 Dose: 2 ml Sodium Chloride (Ns Flush) 2 ml IV.FLUSH PRN PRN PRN Reason: FLUSH AFTER USING IV ACCESS Terbutaline Sulfate (Brethine Inj) 1 mg SQ UNSCH PRN PRN Reason: For Extravasation Last Admin: 03/01/18 22:48 Dose: 1 mg Allergies Allergy/AdvReac Type Severity Reaction Status Date / Time Unable to Assess Allergy Unknown Unverified 03/30/17 06:11 No Known Allergies Allergy Uncoded 07/29/15 10:32 Home Medications Medication Instructions Recorded Confirmed Type Unable to Obtain Home Meds 03/02/18 03/02/18 History Exam Vital signs: Vital Signs 03/01/18 20:22 03/01/18 20:25 03/01/18 20:42 Temperature 99.5 F Pulse Rate 130 H 167 H Pulse Rate [Radial] 167 H Respiratory Rate 24 18 Blood Pressure 136/87 85/51 L 63/38 L Blood Pressure [Left Arm] 63/38 L Pulse Oximetry 97 100 03/01/18 20:53 03/01/18 21:00 03/01/18 21:02 Temperature Pulse Rate 140 H 134 H 127 H Pulse Rate [Radial] Respiratory Rate 20 28 H 29 H Blood Pressure 81/52 L 79/57 L 89/54 L Blood Pressure [Left Arm] Pulse Oximetry 97 100 95 03/01/18 21:06 03/01/18 21:16 03/01/18 21:24 Temperature 98.9 F Pulse Rate 116 H 97 H 136 H Pulse Rate [Radial] Respiratory Rate 27 H 28 H 20 Blood Pressure 80/58 L 81/47 L 81/53 L Blood Pressure [Left Arm] Pulse Oximetry 100 100 03/01/18 21:32 03/01/18 21:37 03/01/18 22:00 Temperature Pulse Rate 72 126 H Pulse Rate [Radial] Respiratory Rate 20 20 Blood Pressure 105/74 89/58 L Blood Pressure [Left Arm] Pulse Oximetry 99 95 95 03/01/18 22:10 03/01/18 22:30 03/01/18 23:00 Temperature Pulse Rate 110 H 106 H 96 H Pulse Rate [Radial] Respiratory Rate 28 H 20 20 Blood Pressure 89/58 L 88/59 L 90/67 L Blood Pressure [Left Arm] Pulse Oximetry 96 94 L 100 03/01/18 23:37 03/02/18 00:00 03/02/18 00:12 Temperature Pulse Rate 76 66 Pulse Rate [Radial] Respiratory Rate 20 20 20 Blood Pressure 99/64 L 114/74 Blood Pressure [Left Arm] Pulse Oximetry 98 03/02/18 01:27 03/02/18 04:00 03/02/18 08:00 Temperature 97.6 F 97.5 F L Pulse Rate 90 68 75 Pulse Rate [Radial] Respiratory Rate 20 13 Blood Pressure 99/64 L 114/83 147/87 H Blood Pressure [Left Arm] Pulse Oximetry 98 100 100 03/02/18 11:19 Temperature Pulse Rate Pulse Rate [Radial] Respiratory Rate Blood Pressure Blood Pressure [Left Arm] Pulse Oximetry 100 Intake & Output 03/01/18 03/02/18 03/02/18 18:59 06:59 18:59 Intake Total 1400 / 1400 1000 / 1000 Balance 1400 / 1400 1000 / 1000 Weight 56.3 kg Intake: IV 1400 / 1400 1000 / 1000 Cordarone Inj 450 MG In D5W Inj 250 / 250 241 ML @ 1 MG/MIN 33.33 mls/hr IV.CONT TITRATE PRN Rx#: [id number] NS Inj 1,000 ML @ 100 mls/hr IV 1000 / 1000 .CONT .Q10H FLOWER Rx#:[id number] Cordarone Inj 150 MG In D5W Inj 100 / 100 97 ML @ 600 mls/hr IV.SIG ONCE ONE Rx#:[id number] Zosyn 3.375 GM Premix 50 ML @ 50 / 50 100 mls/hr IV.SIG Q6H FLOWER Rx#: [id number] NS Inj 1,000 ML @ Wide Open IV. 1000 / 1000 SIG BOLUS ONE Rx#:[id number] Other: Date of Last Bowel Movement 03/01/18 Narrative: The patient is alert, awake. Comfortable, in no acute distress. Speech is fluent. Cranial nerve examination: pupils to be equal, round and reactive to light. Extra-ocular movements are intact. Facial motor and sensory function are normal and symmetrical. Gross hearing appears intact. Sternocleidomastoid and trapezius muscles are symmetrical. Other cranial nerves are intact. Neck is soft and supple with a good range of motion without pain. Muscle strength is normal in all muscle groups of both upper and lower extremities. Sensory examination is intact to light touch and pin prick in both the upper and lower extremities. Deep tendon reflexes are symmetrical in both upper and lower extremities. There is a bilateral plantar flexion response. Cerebellar examination is unremarkable, without deficits. Lungs are clear Heart regular rhythm is regular rate Skin warm and dry HEENT/Neuro: No pallor or icterus, tongue moist, MARIA ELENA, Awake alert oriented 3 , nonfocal grossly, moving all 4 extremities Neck: No JVD Chest/pulmonary: Air entry decreased over right base. Scattered rhonchi, no wheezing Cardiovascular: S1-S2 regular no gallop or murmur GI/abdomen: Soft, nontender, bowel sounds present Extremities: Warm bilaterally, no edema. Healed incision scar noted over right leg Results - Laboratory Findings CBC and BMP: 03/01/18 20:50 03/01/18 20:50 Abnormal lab findings: Abnormal Labs 03/01/18 03/01/18 03/01/18 20:50 20:50 20:50 WBC 28.5 H RBC 4.13 L Hgb 10.3 L Hct 33.8 L MCH 25.0 L MCHC 30.6 L Neut % (Auto) 92.8 H Lymph % (Auto) 3.3 L Neut # (Auto) 26.5 H Lymph # (Auto) 0.9 L Warrick # (Auto) 1.1 H Seg Neuts % (Manual) 72 H Band Neuts % (Manual) 19 H Lymphocytes % (Manual) 6 L Abs Neuts (Manual) 25.9 H Toxic Vacuolation Present H Acanthocytes (Spur) Occ H PT 13.1 H VBG pH VBG pCO2 VBG pO2 VBG O2 Saturation VBG O2 Content VBG Base Excess Hemoglobin Sodium 134 L Chloride 97 L Creatinine 1.96 H Estimated GFR 35 L Lactic Acid Calcium 8.2 L AST 110 H ALT Alkaline Phosphatase 280 H B-Natriuretic Peptide Albumin 2.0 L Urine Occult Blood Urine Mucus Urine Opiates Screen 03/01/18 03/01/18 03/01/18 20:50 21:10 23:00 WBC RBC Hgb Hct MCH MCHC Neut % (Auto) Lymph % (Auto) Neut # (Auto) Lymph # (Auto) Warrick # (Auto) Seg Neuts % (Manual) Band Neuts % (Manual) Lymphocytes % (Manual) Abs Neuts (Manual) Toxic Vacuolation Acanthocytes (Spur) PT VBG pH 7.29 L* VBG pCO2 50 H VBG pO2 20 L* VBG O2 Saturation 20 L VBG O2 Content 2.6 L VBG Base Excess -2.8 L Hemoglobin 9.2 L Sodium Chloride Creatinine Estimated GFR Lactic Acid 3.0 H Calcium AST ALT Alkaline Phosphatase B-Natriuretic Peptide 511 H Albumin Urine Occult Blood Urine Mucus Urine Opiates Screen 03/02/18 03/02/18 03/02/18 01:42 01:55 01:55 WBC RBC Hgb Hct MCH MCHC Neut % (Auto) Lymph % (Auto) Neut # (Auto) Lymph # (Auto) Warrick # (Auto) Seg Neuts % (Manual) Band Neuts % (Manual) Lymphocytes % (Manual) Abs Neuts (Manual) Toxic Vacuolation Acanthocytes (Spur) PT VBG pH VBG pCO2 VBG pO2 VBG O2 Saturation VBG O2 Content VBG Base Excess Hemoglobin Sodium Chloride Creatinine Estimated GFR Lactic Acid 2.7 H Calcium AST ALT Alkaline Phosphatase B-Natriuretic Peptide Albumin Urine Occult Blood Small H Urine Mucus Few H Urine Opiates Screen Pos H 03/02/18 08:24 WBC RBC Hgb Hct MCH MCHC Neut % (Auto) Lymph % (Auto) Neut # (Auto) Lymph # (Auto) Warrick # (Auto) Seg Neuts % (Manual) Band Neuts % (Manual) Lymphocytes % (Manual) Abs Neuts (Manual) Toxic Vacuolation Acanthocytes (Spur) PT VBG pH VBG pCO2 VBG pO2 VBG O2 Saturation VBG O2 Content VBG Base Excess Hemoglobin Sodium Chloride Creatinine Estimated GFR Lactic Acid Calcium AST 254 H ALT 125 H Alkaline Phosphatase 199 H B-Natriuretic Peptide Albumin 1.8 L Urine Occult Blood Urine Mucus Urine Opiates Screen Assessment and Plan - Plan 62-year-old male with: A. fib with RVR Hypotension Leukocytosis with suspected sepsis Possible right lower lobe pneumonia Possible cholecystitis Hepatomegaly Occipital lobe lesion Unintentional weight loss Suspected underlying malignancy I reviewed his radiological studies including Impressions Chest X-Ray 03/01/18 20:39 CONCLUSION: Left mid and lower lung lobar consolidation. Venous Doppler Study 03/01/18 20:39 CONCLUSION: 1. The study is negative for bilateral lower extremity deep venous thrombosis. Chest CTA 03/01/18 21:06 CONCLUSION: 1. This study is negative for pulmonary embolism. 2. Dense consolidation in the right lower lobe without air bronchograms and with truncation of the bronchus to the right lower lobe. This suggests an obstructing lesion. Recommend direct visualization with bronchoscopy. 3. Multiple right-sided pleural and subpleural nodules measuring up to 2 cm in size. 4. Scattered areas of subcutaneous and deep soft tissue gas in the low neck and supraclavicular region. Abdomen/Pelvis CT 03/01/18 21:29 CONCLUSION: 1. Hepatomegaly without focal lesion. 2. Prominent amount of pericholecystic fluid without calcified gallstones suggests possible acalculous cholecystitis. 3. Abnormal appearance to the right lower lung, described on CT pulmonary angiogram report. 4. Bilateral mildly prominent inguinal lymph nodes. 5. Moderately distended stomach. Head CT 03/01/18 21:38 CONCLUSION: 1. Findings suggest a 6 mm mass in the left occipital white matter. Recommend further characterization using MRI with and without contrast. I do not even see the mass. Reciommend an MRI brain NORBERTO Cardiovascular: Aggressive fluid resuscitation, Levophed for pressor support. Will add low-dose vasopressin. On amiodarone gtt. for A. fib. Obtain 2D echo. Follow lactic acid Pulmonary: Supplemental O2, bronchodilators as needed. Pulmonary consult for further evaluation of right lower lobe consolidation. GI/liver: Hepatomegaly fluid around gallbladder. Will obtain GI consult for further evaluation. Daily PT and OT Renal: Continue to monitor closely urine output, BUN and creatinine Endocrine: Continue to Monitor serial Acu checks and SSI as needed in detail ID continue to monitor for signs of infection Continue Protonix for stress ulcer prophylaxis Continue Steven hose and SCD's for DVT prophylaxis Further recommendations will be provided depending on the patient's clinical evaluation and follow up studies. Caprini VTE Risk Assessment Caprini VTE Risk Assessment: Moderate/High Risk (score >= 2) Caprini Risk Assessment Model: Point Value = 1 Point Value = 2 Point Value = 3 Point Value = 5 Age 41-60 Minor surgery BMI > 25 kg/m2 Swollen legs Varicose veins or History of unexplained or recurrent spontaneous Oral contraceptives or hormone replacement Sepsis (< 1 month) Serious lung disease, including pneumonia (< 1 month) Abnormal pulmonary function Acute myocardial infarction Congestive heart failure (< 1 month) History of inflammatory bowel disease Medical patient at bed rest Age 61-74 Arthroscopic surgery Major open surgery (> 45 min) Laparoscopic surgery (> 45 min) Malignancy Confined to bed (> 72 hours) Immobilizing plaster cast Central venous access Age >= 75 History of VTE Family history of VTE Factor V Leiden Prothrombin [id number] Lupus anticoagulant Anticardiolipin antibodies Elevated serum homocysteine Heparin-induced thrombocytopenia Other congenital or acquired thrombophilia Stroke (< 1 month) Elective arthroplasty Hip, pelvis, or leg fracture Acute spinal cord injury (< 1 month) Prophylaxis Regimen: Total Risk Factor Score Risk Level Prophylaxis Regimen 0-1 Low Early ambulation 2 Moderate Order ONE of the following: *Sequential Compression Device (SCD) *Heparin 5000 units SQ BID 3-4 Higher Order ONE of the following medications: *Heparin 5000 units SQ TID *Enoxaparin/Lovenox 40 mg SQ daily (WT < 150 kg, CrCl > 30 mL/min) *Enoxaparin/Lovenox 30 mg SQ daily (WT < 150 kg, CrCl > 10-29 mL/min) *Enoxaparin/Lovenox 30 mg SQ BID (WT < 150 kg, CrCl > 30 mL/min) AND/OR *Sequential Compression Device (SCD) 5 or more Highest Order ONE of the following medications: *Heparin 5000 units SQ TID (Preferred with Epidurals) *Enoxaparin/Lovenox 40 mg SQ daily (WT < 150 kg, CrCl > 30 mL/min) *Enoxaparin/Lovenox 30 mg SQ daily (WT < 150 kg, CrCl > 10-29 mL/min) *Enoxaparin/Lovenox 30 mg SQ BID (WT < 150 kg, CrCl > 30 mL/min) AND *Sequential Compression Device (SCD)
[2018-03-02] MEDS: Morphine Inj 4 MG/ML Vial IV.PUSH PRN ×3 (12:26→21:13)
[2018-03-02 12:59] LABS: Hematocrit 32.7 % (39.0-51.0); Hemoglobin 10.2 gm/dL (13.0-17.0); Mean Corpuscular HGB Conc 31.2 % (32.0-36.0); Mean Corpuscular Hemoglobin 25.5 pg (27.0-34.0); Mean Corpuscular Volume 81.5 fL (80.0-100.0); Mean Platelet Volume 7.7 fL (7.0-11.0); Platelet Count 260 th/mm3 (150-450); Red Blood Count 4.01 mil/mm3 (4.50-5.90); White Blood Count 34.1 th/mm3 (4.0-11.0)
[2018-03-02 13:22] LABS: Alanine Aminotransferase 149 U/L (12-78); Albumin 1.9 g/dL (3.4-5.0); Anion Gap 11 meq/L (5-15); Aspartate Aminotransferase 297 U/L (15-37); Blood Urea Nitrogen 18 mg/dL (7-18); Carbon Dioxide 22.4 meq/L (21.0-32.0); Chloride 105 meq/L (98-107); Glomerular Filtration Rate 64 mL/min (>89); Glucose,Random 101 mg/dL (74-106); Potassium 4.3 meq/L (3.5-5.1); Sodium 138 meq/L (136-145)
[2018-03-02 13:24] LABS: Alkaline Phosphatase 174 U/L (45-117); Total Protein 6.4 g/dL (6.4-8.2)
[2018-03-02 14:14] LABS: Hepatitis A IgM Antibody Nonreactive (Nonreactive); Hepatitits B Surface Antigen Nonreactive (Nonreactive)
--- NOTE | 2018-03-02 14:53 | ECG ---
Date Performed: 03/01/2018 Time Performed: 20:37:00 PTAGE: 62 years EKG: ATRIAL FIBRILLATION WITH RAPID VENTRICULAR RESPONSE LOW QRS VOLTAGE IN EXTREMITY LEADS ABNO RMAL RHYTHM ECG NO PREVIOUS TRACING DOCTOR: Allen Abebe Interpretating Date/Time 03/02/2018 14:53:36
[2018-03-02] MEDS ORDERED: Gadobutrol PF 2 MMOL/2 ML Vial (for RAD) IV.SIG ONE (15:21)
--- NOTE | 2018-03-02 15:34 | US ---
EXAM DATE: 03/02/2018 3:07 PM EDT AGE/SEX: 62 years / Male INDICATIONS: Cholecystitis. CLINICAL DATA: This is the patient's initial encounter. Patient reports that signs and/or symptoms h ave been present for 2 days and indicates a pain score of 7/10. MEDICAL/SURGICAL HISTORY: . Back pain. Edema. . Bone marrow transplant. COMPARISON: [facility] – [place], CT ABDOMEN & PELVIS W CONTRAST, 03/01/2018. . MEASUREMENTS: Liver:__ 17.9 cm. Common Bile Duct:__ 6mm. FINDINGS: Liver: Increased echotexture without focal lesion or ductal dilation. Portal Vein: Hepatopedal flow seen in portal vein. Common Duct: No intraluminal mass or stone visualized. Gallbladder: No definite gallstones are seen. There does appear to be thickening of the gallbladder wall at 9 mm. Pancreas: The visualized portions are within normal limits Right Kidney: Increased echotexture. No mass or hydronephrosis. Trace of fluid in Morison's pouch. Other: None. CONCLUSION: 1. No evidence of gallstones or biliary tract obstruction. 2. There is thickening of the gallbladder wall 9 mm suggestive of at least chronic gallbladder disea se. 3. Increased echogenicity of the liver parenchyma suggestive of fatty infiltration and/or hepatocell ular disease. Electronically signed by: Javi May MD 03/02/2018 3:32 PM EDT
--- NOTE | 2018-03-02 16:30 | MR ---
EXAM DATE: 03/02/2018 3:44 PM EDT AGE/SEX: 62 years / Male INDICATIONS: . Brain mass. CLINICAL DATA: This is the patient's subsequent encounter. Patient reports that signs and symptoms h ave been present for 2 days and indicates a pain score of 3/10. MEDICAL/SURGICAL HISTORY: None. . hernia, LLE ORIF COMPARISON: [facility] – [place], CT HEAD W/O CONTRAST, 03/01/2018. . TECHNIQUE: Multiplanar, multisequence examination of the brain was performed without and with 6 ml Ga davist (gadobutrol) contrast as a single exam dose. 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 There is vasogeni c edema evident surrounding this. No other mass lesion is identified within the brain parenchyma. The patient of this age, the primary consideration would be a metastatic lesion. Primary glial-based maisha plasm would be a consideration as well. MRI source data: No abnormal extra-axial fluid collections are seen. The appearance of the posterior fossa is unremarkable. The sulci and gyri are otherwise intact. The diffusion reconstructed images demonstrate some punctate areas of abnormal restricted diffusion s ignal in the watershed distribution posteriorly on the left. These have an appearance consistent with punctate areas of cortical infarct. There is no contrast enhancement within these. Imaging through the sinuses demonstrates mild mucoperiosteal sinus disease involving the frontal sinu ses bilaterally. There is evidence of chronic sinusitis involving the left maxillary sinus as well. T he orbits are intact. CONCLUSION: 1. 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 Primary consideration would be a focal metastatic lesion. 2. There are some scattered punctate areas of abnormal restricted diffusion signal in the watershed distribution posteriorly on the left. 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 Electronically signed by: Mushtaq Rose MD 03/02/2018 4:28 PM EDT
--- NOTE | 2018-03-02 17:50 | ECHRPT ---
Indication: ATRIAL FIB/FLUTTER CONCLUSIONS The left ventricular systolic function is moderately reduced with an estimated ejection fraction in the range of 40-45%. There is global left ventricular dysfunction. Mild mitral valve regurgitation. There is mild tricuspid valve regurgitation. BP: / HR: Rhythm: Atrial fibrillation, Atrial flut ter MEASUREMENTS (Male / Female) Normal Values Technical Quality:Fair 2D ECHO LV Diastolic Diameter PLAX 4.3 cm 4.2 - 5.9 / 3.9 - 5.3 cm LV Systolic Diameter PLAX 3.5 cm IVS Diastolic Thickness 0.9 cm 0.6 - 1.0 / 0.6 - 0.9 cm LVPW Diastolic Thickness 0.9 cm 0.6 - 1.0 / 0.6 - 0.9 cm LV Relative Wall Thickness 0.4 RV Internal Dim ED PLAX 2.7 cm LVOT Diameter 2.0 cm Aortic Root Diameter 3.3 cm LA Systolic Diameter LX 4.3 cm 3.0 - 4.0 / 2.7 - 3.8 cm M-MODE AV Cusp Separation MM 2.0 cm DOPPLER AV Peak Velocity 78.0 cm/s AV Peak Gradient 2.4 mmHg AV Mean Gradient 1.5 mmHg AV Velocity Time Integral 14.0 cm LVOT Peak Velocity 51.5 cm/s LVOT Peak Gradient 1.1 mmHg LVOT Velocity Time Integral 9.7 cm AV Area Cont Eq vti 2.2 cm AV Area Cont Eq pk 2.1 cm Mitral E Point Velocity 98.7 cm/s LV E' Lateral Velocity 11.1 cm/s Mitral E to LV E' Lateral Ratio 8.9 LV E' Septal Velocity 9.2 cm/s Mitral E to LV E' Septal Ratio 10.8 TR Peak Velocity 273.0 cm/s TR Peak Gradient 29.8 mmHg Right Atrial Pressure 10.0 mmHg Pulmonary Artery Systolic Pressu 39.8 mmHg Right Ventricular Systolic Press 39.8 mmHg PV Peak Velocity 24.2 cm/s PV Peak Gradient 0.2 mmHg FINDINGS LEFT VENTRICLE Normal left ventricular size. Wall thickness is normal. The left ventricular systolic function is moderately reduced with an estimated ejection fraction in the range of 40-45%. There is global left ventricular dysfunction. RIGHT VENTRICLE Grossly normal LEFT ATRIUM The left atrial size is mildly dilated. RIGHT ATRIUM The right atrial size is mildly dilated. ATRIAL SEPTUM No atrial level shunt is demonstrated by color flow Doppler interrogation. Superior portion of intra-atrial septum felt to be thickened vs an extra-cardiac echodensity AORTA The aortic root and proximal ascending aorta are not well visualized. MITRAL VALVE Structurally normal mitral valve. Mild mitral valve regurgitation. No mitral valve stenosis. AORTIC VALVE Aortic valve sclerosis is present. Trileaflet aortic valve. No aortic valve stenosis or regurgitation. TRICUSPID VALVE Structurally normal tricuspid valve. There is mild tricuspid valve regurgitation. The estimated pulmonary arterial pressure is 39.8 mmHg. PULMONARY VALVE No pulmonary valve regurgitation or stenosis. VESSELS The inferior vena cava is normal in size. Dewayne Cox DO (Electronically Signed) Final Date:02 March 2018 17:49
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
[2018-03-03] LABS: % Iron Saturation 5.3 % (20-50)
[2018-03-03] MEDS: Sod Chloride 0.9% Inj 1,000 ML IV.CONT SCH ×2 (00:18→09:19)
[2018-03-03] MEDS: Morphine Inj 4 MG/ML Vial IV.PUSH PRN ×5 (01:15→20:06)
[2018-03-03] MEDS: Chlorhexidine Gluconate 2% 1 Pack (2 Cloths) TOPICAL SCH (03:56)
[2018-03-03] MEDS: Piperacil/Tazo 3.375 GM Premix 50 ML IV.SIG SCH ×4 (04:08→21:35)
[2018-03-03] MEDS: Hydrocortisone Sod Succinate 100 MG Vial IV.PUSH SCH ×3 (05:28→21:34)
--- NOTE | 2018-03-03 05:36 | XR ---
EXAM DATE: 03/03/2018 5:23 AM EDT AGE/SEX: 62 years / Male INDICATIONS: . Respiratory distress CLINICAL DATA: This is the patient's subsequent encounter. Patient reports that signs and symptoms h ave been present for 2 days and indicates a pain score of 0/10. MEDICAL/SURGICAL HISTORY: None. None. COMPARISON: [facility] [place], CHEST 1V SINGLE AP, 03/01/2018. . FINDINGS: There is right-sided basilar airspace consolidation with moderate right pleural effusion. Left lung i s clear. No pneumothorax. CONCLUSION: Right basilar lung consolidation and pleural effusion. Findings similar to March 01. Left lung remains clear. Electronically signed by: Wally Baires MD 03/03/2018 5:34 AM EDT
[2018-03-03 07:33] LABS: Hematocrit 33.4 % (39.0-51.0); Hemoglobin 10.5 gm/dL (13.0-17.0); Lymph # (Auto) 0.8 th/mm3 (1.0-4.8); Lymph % (Auto) 2.8 % (9.0-44.0); Mean Corpuscular HGB Conc 31.5 % (32.0-36.0); Mean Corpuscular Hemoglobin 25.4 pg (27.0-34.0); Mean Corpuscular Volume 80.6 fL (80.0-100.0); Mean Platelet Volume 7.9 fL (7.0-11.0); Mono # (Auto) 0.9 th/mm3 (0.0-0.9); Mono % (Auto) 3.4 % (0.0-8.0); Neut % (Auto) 93.8 % (16.0-70.0); Platelet Count 284 th/mm3 (150-450); Red Blood Count 4.15 mil/mm3 (4.50-5.90); Red Cell Distribution Width 17.2 % (11.6-17.2); White Blood Count 27.8 th/mm3 (4.0-11.0)
[2018-03-03 07:49] LABS: Albumin 1.8 g/dL (3.4-5.0); Anion Gap 11 meq/L (5-15); Aspartate Aminotransferase 171 U/L (15-37); Blood Urea Nitrogen 23 mg/dL (7-18); Calcium 8.1 mg/dL (8.5-10.1); Carbon Dioxide 21.1 meq/L (21.0-32.0); Chloride 107 meq/L (98-107); Glomerular Filtration Rate 85 mL/min (>89); Glucose,Random 113 mg/dL (74-106); Magnesium 1.9 mg/dL (1.5-2.5); Potassium 3.6 meq/L (3.5-5.1); Sodium 139 meq/L (136-145)
[2018-03-03 07:51] LABS: Alanine Aminotransferase 143 U/L (12-78); Phosphorus 3.2 mg/dL (2.5-4.9)
[2018-03-03 07:53] LABS: Alkaline Phosphatase 137 U/L (45-117); Total Protein 6.3 g/dL (6.4-8.2)
--- NOTE | 2018-03-03 08:41 | P.CONGS ---
[facility] Gen Surgery Consult Note Consult date: 03/03/18 Narrative: 62 yo M presented for chest pain, shortness of breath, noted to have RLL lung consolidation possibly obstructive and fluid around the gallbladder. He relates to me that he has not been having abdominal pain, mainly right sided chest pain at this time and shortness of breath. WBC is 28,000 with mild elevation transaminases and alkaline phosphatase. He's noted to have a brain lesion possible metastatic disease. Gallbladder u/s showed 9mm wall thickness, no stones or sludge. Review of Systems All other systems reviewed negative except as stated in [facility] - History History Provided By: Patient - Medical History Medical History: Medical History (Last Reviewed 03/02/18 @ 11:38 by Silvano Crowe MD) Edema (Acute) Back pain (Acute) Bone marrow transplant infection (Chronic) - Tobacco History Tobacco Type: Cigarettes - Alcohol History How Often Do You Have a Drink Containing Alcohol: 2 to 3 times a week - Substance Use History Substance History: No History of Abuse - Travel History Recent Travel in the [place] Within the Last 8 Weeks: No Recent Travel Out of the Country Within the Last 8 Weeks: No - Immunization History Tetanus Immunization: <5 Years Hx Influenza Vaccine This Season: No Medications and Allergies Active Medications: Active Medications Al Hydroxide/Mg Hydroxide (Milk Of Magnjan Liq) 30 ml PO Q12H PRN PRN Reason: Mild Constipation Albuterol (Duoneb Neb (Prn)) 1 ampul NEB Q2HR NEB PRN PRN Reason: WHEEZING Albuterol (Duoneb Neb (Flower)) 1 ampul NEB Q4HR NEB FLOWER Last Admin: 03/03/18 03:48 Dose: Not Given Bisacodyl (Dulcolax Supp) 10 mg RECTAL DAILY PRN PRN Reason: SEVERE CONSITIPATION Chlorhexidine Gluconate (Chlorhexidine 2% Cloth) 3 pack TOPICAL DAILY@0400 FLOWER Stop: 03/07/18 03:59 Last Admin: 03/03/18 03:56 Dose: 3 pack Chlorhexidine Gluconate (Chlorhexidine 2% Cloth) 3 pack TOPICAL DAILY@0400 PRN PRN Reason: Extra cloth needed Stop: 03/07/18 03:59 Hydrocortisone Sodium Succinate (Solucortef Inj) 100 mg IV.PUSH Q8HR [facility] Last Admin: 03/03/18 05:28 Dose: 100 mg Amiodarone HCl 450 mg/ (Dextrose) 250 mls @ 33.33 mls/hr IV.CONT TITRATE PRN; Protocol PRN Reason: Per Protocol Last Admin: 03/02/18 21:14 Dose: 0.49 mg/min, 16.66 mls/hr Norepinephrine Bitartrate (Levophed-Dextrose 4 Mg/250 Ml Drip) 4 mg in 250 mls @ 7.5 mls/hr IV.SIG TITRATE PRN; Protocol PRN Reason: Per Protocol Last Titration: 03/01/18 23:02 Dose: 4 mcg/min, 15 mls/hr Sodium Chloride (Ns Inj) 1,000 mls @ 100 mls/hr IV.CONT .Q10H [facility] Last Admin: 03/03/18 00:18 Dose: 100 mls/hr Piperacillin/Tazobactam/Dextrose (Zosyn 3.375 Gm Premix) 50 mls @ 100 mls/hr IV.SIG Q6H [facility] Last Admin: 03/03/18 04:08 Dose: 100 mls/hr Lactulose (Lactulose Liq) 30 ml PO DAILY PRN PRN Reason: SEVERE CONSITIPATION Morphine Sulfate (Morphine Inj) 4 mg IV.PUSH Q4H PRN PRN Reason: PAIN 6-10;IF UNABLE TO TAKE PO Last Admin: 03/03/18 05:36 Dose: 4 mg Ondansetron HCl (Zofran Inj) 4 mg IV.PUSH Q6H PRN PRN Reason: NAUSEA OR VOMITING Last Admin: 03/02/18 21:14 Dose: 4 mg Pantoprazole Sodium (Protonix Inj) 40 mg IV.PUSH DAILY [facility] Last Admin: 03/02/18 09:34 Dose: 40 mg Senna/Docusate Sodium (Heather-Colace) 1 tab PO BID [facility] Last Admin: 03/02/18 21:12 Dose: 1 tab Sennosides (Senokot) 17.2 mg PO Q12H PRN PRN Reason: Moderate Constipation Sodium Chloride (Ns Flush) 2 ml IV.FLUSH UNSCH PRN PRN Reason: FLUSH AFTER USING IV ACCESS Last Admin: 03/01/18 22:50 Dose: 2 ml Sodium Chloride (Ns Flush) 2 ml IV.FLUSH BID [facility] Last Admin: 03/02/18 21:11 Dose: 2 ml Sodium Chloride (Ns Flush) 2 ml IV.FLUSH PRN PRN PRN Reason: FLUSH AFTER USING IV ACCESS Terbutaline Sulfate (Brethine Inj) 1 mg SQ UNSCH PRN PRN Reason: For Extravasation Last Admin: 03/01/18 22:48 Dose: 1 mg Allergies Allergy/AdvReac Type Severity Reaction Status Date / Time No Known Allergies Allergy Verified 03/02/18 16:51 Home Medications Medication Instructions Recorded Confirmed Type docusate sodium 100 mg PO BID 03/03/18 03/03/18 History meloxicam 15 mg PO ONCE 03/03/18 03/03/18 History morphine [MS Contin] 100 mg PO Q8H 03/03/18 03/03/18 History oxycodone 30 mg PO Q4-6H PRN MDD 2.5 tablets 03/03/18 03/03/18 History Exam Vital signs: Vital Signs 03/02/18 09:00 03/02/18 11:19 03/02/18 12:00 Temperature 97.5 F L 97.5 F L Pulse Rate 74 71 Respiratory Rate 19 14 Blood Pressure 126/78 106/78 Pulse Oximetry 100 100 03/02/18 12:50 03/02/18 16:00 03/02/18 17:14 Temperature 97.6 F Pulse Rate 72 76 Respiratory Rate 14 15 16 Blood Pressure 110/68 Pulse Oximetry 99 03/02/18 17:39 03/02/18 20:00 03/02/18 20:03 Temperature 97.6 F Pulse Rate 74 Respiratory Rate 19 16 Blood Pressure 99/63 L Pulse Oximetry 98 94 L 03/02/18 23:15 03/03/18 00:00 03/03/18 04:00 Temperature 97.6 F 97.6 F Pulse Rate 79 82 74 Respiratory Rate 16 14 13 Blood Pressure 102/61 102/63 Pulse Oximetry 94 L 97 03/03/18 07:46 03/03/18 07:48 03/03/18 07:49 Temperature 97.6 F Pulse Rate 77 68 Respiratory Rate 16 Blood Pressure 121/64 Pulse Oximetry 99 99 Intake & Output 03/02/18 03/03/18 03/03/18 18:59 06:59 18:59 Intake Total 1580 / 1580 1780 / 1780 Output Total 800 / 800 850 / 850 Balance 780 / 780 930 / 930 Weight 52.8 kg Intake: IV 1100 / 1100 1300 / 1300 Cordarone Inj 450 MG In D5W Inj 250 / 250 241 ML @ 1 MG/MIN 33.33 mls/hr IV.CONT TITRATE PRN Rx#: [id number] NS Inj 1,000 ML @ 100 mls/hr IV 1000 / 1000 1000 / 1000 .CONT .Q10H FLOWER Rx#:[id number] Zosyn 3.375 GM Premix 50 ML @ 100 / 100 50 / 50 100 mls/hr IV.SIG Q6H FLOWER Rx#: [id number] Oral 480 / 480 480 / 480 Output: Urine 800 / 800 850 / 850 Other: # Voids 2 Date of Last Bowel Movement 03/01/18 03/01/18 03/01/18 Narrative: GENERAL: Awake and alert. Appears uncomfortable. Somewhat chronically ill appearing with some temporal wasting. HEAD: Normocephalic. Atraumatic. EYES: Pupils equal round and reactive to light bilaterally. No scleral icterus. ENT: Moist oral mucosa. NECK: Trachea midline. CHEST: Mild respiratory distress CARDIOVASCULAR: Regular rate and rhythm. ABDOMEN: Mild distention. No abdominal tenderness. SKIN: Warm, dry, nonjaundiced. Results - Labs 03/03/18 07:00 03/03/18 07:00 Abnormal lab results 03/02/18 03/02/18 03/02/18 Range/Units 08:24 12:44 12:44 WBC (4.0-11.0) th/mm3 RBC (4.50-5.90) mil/mm3 Hgb (13.0-17.0) gm/dL Hct (39.0-51.0) % MCH (27.0-34.0) pg MCHC (32.0-36.0) % Neut % (Auto) (16.0-70.0) % Lymph % (Auto) (9.0-44.0) % Neut # (Auto) (1.8-7.7) th/mm3 Lymph # (Auto) (1.0-4.8) th/mm3 BUN (7-18) mg/dL Estimated GFR (>89) mL/min Random Glucose (74-106) mg/dL Calcium (8.5-10.1) mg/dL Iron (65-175) mcg/dL TIBC (250-450) mcg/dL % Saturation (20-50) % AST 254 H (15-37) U/L ALT 125 H (12-78) U/L Alkaline Phosphatase 199 H (45-117) U/L Total Protein (6.4-8.2) g/dL Albumin 1.8 L (3.4-5.0) g/dL Lipase 33 L (73-393) U/L Hep C IgG Ab Reactive H (Nonreactive) 03/02/18 03/02/18 03/02/18 Range/Units 12:44 12:44 12:44 WBC 34.1 H (4.0-11.0) th/mm3 RBC 4.01 L (4.50-5.90) mil/mm3 Hgb 10.2 L (13.0-17.0) gm/dL Hct 32.7 L (39.0-51.0) % MCH 25.5 L (27.0-34.0) pg MCHC 31.2 L (32.0-36.0) % Neut % (Auto) (16.0-70.0) % Lymph % (Auto) (9.0-44.0) % Neut # (Auto) (1.8-7.7) th/mm3 Lymph # (Auto) (1.0-4.8) th/mm3 BUN (7-18) mg/dL Estimated GFR 64 L (>89) mL/min Random Glucose (74-106) mg/dL Calcium 8.0 L (8.5-10.1) mg/dL Iron 10 L (65-175) mcg/dL TIBC 189 L (250-450) mcg/dL % Saturation 5.3 L (20-50) % AST 297 H (15-37) U/L ALT 149 H (12-78) U/L Alkaline Phosphatase 174 H (45-117) U/L Total Protein (6.4-8.2) g/dL Albumin 1.9 L (3.4-5.0) g/dL Lipase (73-393) U/L Hep C IgG Ab (Nonreactive) 03/03/18 03/03/18 Range/Units 07:00 07:00 WBC 27.8 H (4.0-11.0) th/mm3 RBC 4.15 L (4.50-5.90) mil/mm3 Hgb 10.5 L (13.0-17.0) gm/dL Hct 33.4 L (39.0-51.0) % MCH 25.4 L (27.0-34.0) pg MCHC 31.5 L (32.0-36.0) % Neut % (Auto) 93.8 H (16.0-70.0) % Lymph % (Auto) 2.8 L (9.0-44.0) % Neut # (Auto) 26.0 H (1.8-7.7) th/mm3 Lymph # (Auto) 0.8 L (1.0-4.8) th/mm3 BUN 23 H (7-18) mg/dL Estimated GFR 85 L (>89) mL/min Random Glucose 113 H (74-106) mg/dL Calcium 8.1 L (8.5-10.1) mg/dL Iron (65-175) mcg/dL TIBC (250-450) mcg/dL % Saturation (20-50) % AST 171 H (15-37) U/L ALT 143 H (12-78) U/L Alkaline Phosphatase 137 H (45-117) U/L Total Protein 6.3 L (6.4-8.2) g/dL Albumin 1.8 L (3.4-5.0) g/dL Lipase (73-393) U/L Hep C IgG Ab (Nonreactive) Diabetes panel 03/02/18 03/02/18 03/03/18 Range/Units 08:24 12:44 07:00 Sodium 138 139 (136-145) meq/L Potassium 4.3 3.6 (3.5-5.1) meq/L Chloride 105 D 107 (98-107) meq/L Carbon Dioxide 22.4 21.1 (21.0-32.0) meq/L BUN 18 23 H (7-18) mg/dL Creatinine 1.15 0.90 (0.60-1.30) mg/dL Calcium 8.0 L 8.1 L (8.5-10.1) mg/dL AST 254 H 297 H 171 H (15-37) U/L ALT 125 H 149 H 143 H (12-78) U/L Alkaline Phosphatase 199 H 174 H 137 H (45-117) U/L Total Protein 6.6 6.4 6.3 L (6.4-8.2) g/dL Albumin 1.8 L 1.9 L 1.8 L (3.4-5.0) g/dL Calcium panel 03/02/18 03/02/18 03/03/18 Range/Units 08:24 12:44 07:00 Calcium 8.0 L 8.1 L (8.5-10.1) mg/dL Phosphorus 3.2 (2.5-4.9) mg/dL Albumin 1.8 L 1.9 L 1.8 L (3.4-5.0) g/dL Pituitary panel 03/02/18 03/03/18 Range/Units 12:44 07:00 Sodium 138 139 (136-145) meq/L Potassium 4.3 3.6 (3.5-5.1) meq/L Chloride 105 D 107 (98-107) meq/L Carbon Dioxide 22.4 21.1 (21.0-32.0) meq/L BUN 18 23 H (7-18) mg/dL Creatinine 1.15 0.90 (0.60-1.30) mg/dL Calcium 8.0 L 8.1 L (8.5-10.1) mg/dL Adrenal panel 03/02/18 03/02/18 03/03/18 Range/Units 08:24 12:44 07:00 Sodium 138 139 (136-145) meq/L Potassium 4.3 3.6 (3.5-5.1) meq/L Chloride 105 D 107 (98-107) meq/L Carbon Dioxide 22.4 21.1 (21.0-32.0) meq/L BUN 18 23 H (7-18) mg/dL Creatinine 1.15 0.90 (0.60-1.30) mg/dL Calcium 8.0 L 8.1 L (8.5-10.1) mg/dL Total Bilirubin 0.9 0.6 0.3 (0.2-1.0) mg/dL AST 254 H 297 H 171 H (15-37) U/L ALT 125 H 149 H 143 H (12-78) U/L Alkaline Phosphatase 199 H 174 H 137 H (45-117) U/L Total Protein 6.6 6.4 6.3 L (6.4-8.2) g/dL Albumin 1.8 L 1.9 L 1.8 L (3.4-5.0) g/dL All other labs normal. - Imaging CT scan - abdomen: report reviewed, image reviewed CT scan - pelvis: report reviewed, image reviewed US - abdomen: report reviewed Assessment and Plan - Assessment (1) Abnormal gallbladder ultrasound Code(s): R93.2 - Abnormal findings on diagnostic imaging of liver and biliary tract Status: Acute (2) Pneumonia Code(s): J18.9 - Pneumonia, unspecified organism Status: Acute (3) Mass of lung Code(s): R91.8 - Other nonspecific abnormal finding of lung field Status: Acute - Plan He does have wall thickening on u/s but appears to have dense consolidation of right lower lobe of the lung secondary to obstructing mass which I think is the cause of his symptoms. I do not recommend any intervention for gallbladder. Continue IV antibiotics. D/w Dr. Esqueda. Please call for further input.
[2018-03-03] MEDS: Senna/Docusate Sodium 8.6/50 MG Tablet PO SCH ×2 (09:19→21:35)
[2018-03-03] MEDS: Pantoprazole Inj 40 MG Vial IV.PUSH SCH (09:19)
[2018-03-03] MEDS ORDERED: Metoprolol Inj 5 MG/5 ML Vial IV.PUSH PRN (09:33)
--- NOTE | 2018-03-03 09:41 | P.PNCC ---
Subjective Subjective Remarks/Hospital Course: 62-year-old male who presented to ER with right-sided chest pain were on for a few days with some shortness of breath. He has not been feeling well for the last 2 weeks with progressive weakness which is generalized. Patient is also lost weight about 50-60 pounds in the last 6 months which is unintentional. He denies any nausea vomiting or diarrhea. Denies any melena or rectal bleeding. Patient was found to be in A. fib with RVR on arrival in the ER. He received IV Lopressor and subsequently dropped his blood pressure and she was started on Levophed for pressor support. After obtaining blood cultures patient was started on IV Zosyn. He underwent imaging studies which revealed hepatomegaly, right lower lobe consolidation and a question of fluid around the gallbladder suggesting cholecystitis. Head CT revealed a lesion in the occipital lobe. Patient was accepted for admission by critical care medicine service. When I evaluated the patient in the ER he was laying in the ER stretcher appeared comfortable not in acute distress though was diaphoretic. [place] [facility]. 03/03: Patient lying on bed not in any acute distress. WBC count is trending down. Atrial fibrillation is rate controlled now remains on amiodarone drip. We will wean to DC amiodarone due to elevated liver enzymes, start scheduled metoprolol 25 twice daily with IV metoprolol as needed. Reviewed CT angiogram of the chest with Dr. Gómez. There is a large right lower lobe mass with central necrosis. The mass extends into the mediastinal region with possibly some invasion into the suprahepatic IVC near right atrium, possible invasion into the right pulmonary vein just proximal to the left atrium. The mass occludes the right lower lobe bronchus with postobstructive collapse. Multiple pleural-based nodular densities also show some central necrosis and are characteristic of metastatic deposits. Plan for bronchoscopy with biopsy most likely tomorrow per Dr. Barajas. MRI brain showed 0.8 x 0.8 x 0.8 mm homogeneously enhancing mass in the posterior horn of the left lateral ventricle , possibly focal metastatic lesion. Objective Vital Signs / I&O: Vital Signs 03/02/18 11:19 03/02/18 12:00 03/02/18 12:50 Temperature 97.5 F L Pulse Rate 71 Respiratory Rate 14 14 Blood Pressure 106/78 Pulse Oximetry 100 100 03/02/18 16:00 03/02/18 17:14 03/02/18 17:39 Temperature 97.6 F Pulse Rate 72 76 Respiratory Rate 15 16 19 Blood Pressure 110/68 Pulse Oximetry 99 03/02/18 20:00 03/02/18 20:03 03/02/18 23:15 Temperature 97.6 F Pulse Rate 74 79 Respiratory Rate 16 16 Blood Pressure 99/63 L Pulse Oximetry 98 94 L 03/03/18 00:00 03/03/18 04:00 03/03/18 07:46 Temperature 97.6 F 97.6 F Pulse Rate 82 74 77 Respiratory Rate 14 13 Blood Pressure 102/61 102/63 Pulse Oximetry 94 L 97 03/03/18 07:48 03/03/18 07:49 Temperature 97.6 F Pulse Rate 68 Respiratory Rate 16 Blood Pressure 121/64 Pulse Oximetry 99 99 Intake & Output 03/02/18 03/03/18 03/03/18 18:59 06:59 18:59 Intake Total 1580 / 1580 1830 / 1830 900 / 900 Output Total 800 / 800 850 / 850 Balance 780 / 780 980 / 980 900 / 900 Weight 52.8 kg Intake: IV 1100 / 1100 1350 / 1350 900 / 900 Cordarone Inj 450 MG In D5W Inj 250 / 250 241 ML @ 1 MG/MIN 33.33 mls/hr IV.CONT TITRATE PRN Rx#: [id number] NS Inj 1,000 ML @ 100 mls/hr IV 1000 / 1000 1000 / 1000 900 / 900 .CONT .Q10H SUSIE Rx#:[id number] Zosyn 3.375 GM Premix 50 ML @ 100 / 100 100 / 100 100 mls/hr IV.SIG Q6H SUSIE Rx#: [id number] Oral 480 / 480 480 / 480 Output: Urine 800 / 800 850 / 850 Other: # Voids 2 Date of Last Bowel Movement 03/01/18 03/01/18 03/01/18 Result Diagrams: 03/03/18 07:00 03/03/18 07:00 Objective Remarks: GEN: Ill-appearing 62-year-old male who appears emaciated HEENT: No pallor or icterus, tongue moist, DICK Chest/pulmonary: Air entry decreased over right base. Scattered rhonchi, no wheezing Cardiovascular: S1-S2 regular no gallop or murmur GI/abdomen: Soft, nontender, bowel sounds present Extremities: Warm bilaterally, no edema. Healed incision scar noted over right leg Neuro: Alert awake oriented no focal deficits Assessment and Plan - Assessment and Plan Plan: ASSESSMENT: 62-year-old male with: New onset A. 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 Crowe following patient at least at this time not a candidate for surgical intervention for possible brain metastases Cardiovascular: s/p Aggressive fluid resuscitation, off Levophed for pressor support. Start metoprolol 25 mg p.o. twice daily, IV metoprolol 2.5 every 6 hours as needed and DC amiodarone infusion Development of atrial fibrillation most likely secondary to the tumor invasion into the IVC and possibly to the right atrium F/U 2D echo. Because of the above reason I do not think a cardiology consult is indicated at this time Pulmonary: Large obstructing right lower lobe mass with central necrosis with evidence of metastatic disease suspicious for primary lung malignancy Plan for bronchoscopy with biopsy by Dr. Barajas tomorrow Supplemental O2, bronchodilators scheduled and as needed. Continue steroids continue broad-spectrum antibiotics GI/liver: Hepatomegaly fluid around gallbladder. GI and general surgery consulted Clinically there is no evidence of cholecystitis Renal/: IV hydration, strict intake output, monitor and replete electrolytes, follow BUN creatinine Creatinine is improving has normalized Heme: Follow CBC, now trending down Endocrine: Watch for hyperglycemia, SSI for glycemic control if needed. Continue stress dose steroids, start tapering in the next 24 hours Prophylaxis: PPI/SCDs. Hold Lovenox in anticipation of bronchoscopy and biopsy Patient remains critical but stabilizing. Hemodynamically improved. He has evidence of large lung mass with metastatic disease concerning for primary lung malignancy. With brain metastases and huge lung masses prognosis is poor. Consult hospitalist to assume care in a.m. 03/03/18 Code Status: Full Discussed Condition With: Tariq Ortez and Rico
[2018-03-03] MEDS ORDERED: Meloxicam 15 MG Tablet PO SCH (09:45)
[2018-03-03] MEDS: Metoprolol Tartrate 25 MG Tablet PO SCH ×2 (09:55→23:48)
--- NOTE | 2018-03-03 10:55 | P.PNNS ---
Subjective Interval history: This is a 62-year-old male who presented to ER with right-sided chest pain were on for a few days with some shortness of breath. He has not been feeling well for the last 2 weeks with progressive generalized weakness. He lost weight about 50-60 pounds in the last 6 months which is unintentional. He denies any nausea vomiting or diarrhea. Denies any melena or rectal bleeding. He was found to be in A. fib with RVR on arrival in the ER. He received IV Lopressor and subsequently dropped his blood pressure and she was started on Levophed for pressor support. After obtaining blood cultures patient was started on IV Zosyn. He underwent imaging studies which revealed hepatomegaly, right lower lobe consolidation and a question of fluid around the gallbladder suggesting cholecystitis. Head CT revealed a questionable lesion in the occipital lobe. Patient was accepted for admission by critical care medicine service. Neurosurgery consultation was requested 03/03. Alert and awake. No focal deficits. MRI brain completed Results - Laboratory Findings CBC and BMP: 03/01/18 20:50 03/01/18 20:50 Abnormal lab findings: Abnormal Labs 03/01/18 03/01/18 03/01/18 20:50 20:50 20:50 WBC 28.5 H RBC 4.13 L Hgb 10.3 L Hct 33.8 L MCH 25.0 L MCHC 30.6 L Neut % (Auto) 92.8 H Lymph % (Auto) 3.3 L Neut # (Auto) 26.5 H Lymph # (Auto) 0.9 L [place] # (Auto) 1.1 H Seg Neuts % (Manual) 72 H Band Neuts % (Manual) 19 H Lymphocytes % (Manual) 6 L Abs Neuts (Manual) 25.9 H Toxic Vacuolation Present H Acanthocytes (Spur) Occ H PT 13.1 H VBG pH VBG pCO2 VBG pO2 VBG O2 Saturation VBG O2 Content VBG Base Excess Hemoglobin Sodium 134 L Chloride 97 L Creatinine 1.96 H Estimated GFR 35 L Lactic Acid Calcium 8.2 L AST 110 H ALT Alkaline Phosphatase 280 H B-Natriuretic Peptide Albumin 2.0 L Urine Occult Blood Urine Mucus Urine Opiates Screen 03/01/18 03/01/18 03/01/18 20:50 21:10 23:00 WBC RBC Hgb Hct MCH MCHC Neut % (Auto) Lymph % (Auto) Neut # (Auto) Lymph # (Auto) [place] # (Auto) Seg Neuts % (Manual) Band Neuts % (Manual) Lymphocytes % (Manual) Abs Neuts (Manual) Toxic Vacuolation Acanthocytes (Spur) PT VBG pH 7.29 L* VBG pCO2 50 H VBG pO2 20 L* VBG O2 Saturation 20 L VBG O2 Content 2.6 L VBG Base Excess -2.8 L Hemoglobin 9.2 L Sodium Chloride Creatinine Estimated GFR Lactic Acid 3.0 H Calcium AST ALT Alkaline Phosphatase B-Natriuretic Peptide 511 H Albumin Urine Occult Blood Urine Mucus Urine Opiates Screen 03/02/18 03/02/18 03/02/18 01:42 01:55 01:55 WBC RBC Hgb Hct MCH MCHC Neut % (Auto) Lymph % (Auto) Neut # (Auto) Lymph # (Auto) [place] # (Auto) Seg Neuts % (Manual) Band Neuts % (Manual) Lymphocytes % (Manual) Abs Neuts (Manual) Toxic Vacuolation Acanthocytes (Spur) PT VBG pH VBG pCO2 VBG pO2 VBG O2 Saturation VBG O2 Content VBG Base Excess Hemoglobin Sodium Chloride Creatinine Estimated GFR Lactic Acid 2.7 H Calcium AST ALT Alkaline Phosphatase B-Natriuretic Peptide Albumin Urine Occult Blood Small H Urine Mucus Few H Urine Opiates Screen Pos H 03/02/18 08:24 WBC RBC Hgb Hct MCH MCHC Neut % (Auto) Lymph % (Auto) Neut # (Auto) Lymph # (Auto) [place] # (Auto) Seg Neuts % (Manual) Band Neuts % (Manual) Lymphocytes % (Manual) Abs Neuts (Manual) Toxic Vacuolation Acanthocytes (Spur) PT VBG pH VBG pCO2 VBG pO2 VBG O2 Saturation VBG O2 Content VBG Base Excess Hemoglobin Sodium Chloride Creatinine Estimated GFR Lactic Acid Calcium AST 254 H ALT 125 H Alkaline Phosphatase 199 H B-Natriuretic Peptide Albumin 1.8 L Urine Occult Blood Urine Mucus Urine Opiates Screen Assessment and Plan - Plan 62-year-old male with: A. fib with RVR Hypotension Leukocytosis with suspected sepsis Possible right lower lobe pneumonia Possible cholecystitis Hepatomegaly Occipital lobe lesion Unintentional weight loss Suspected underlying malignancy I reviewed his radiological studies including Impressions Chest X-Ray 03/01/18 20:39 CONCLUSION: Left mid and lower lung lobar consolidation. Venous Doppler Study 03/01/18 20:39 CONCLUSION: 1. The study is negative for bilateral lower extremity deep venous thrombosis. Chest CTA 03/01/18 21:06 CONCLUSION: 1. This study is negative for pulmonary embolism. 2. Dense consolidation in the right lower lobe without air bronchograms and with truncation of the bronchus to the right lower lobe. This suggests an obstructing lesion. Recommend direct visualization with bronchoscopy. 3. Multiple right-sided pleural and subpleural nodules measuring up to 2 cm in size. 4. Scattered areas of subcutaneous and deep soft tissue gas in the low neck and supraclavicular region. Abdomen/Pelvis CT 03/01/18 21:29 CONCLUSION: 1. Hepatomegaly without focal lesion. 2. Prominent amount of pericholecystic fluid without calcified gallstones suggests possible acalculous cholecystitis. 3. Abnormal appearance to the right lower lung, described on CT pulmonary angiogram report. 4. Bilateral mildly prominent inguinal lymph nodes. 5. Moderately distended stomach. Physical Exam Vital signs: Vital Signs 03/02/18 11:19 03/02/18 12:00 03/02/18 12:50 Temperature 97.5 F L Pulse Rate 71 Respiratory Rate 14 14 Blood Pressure 106/78 Pulse Oximetry 100 100 03/02/18 16:00 03/02/18 17:14 03/02/18 17:39 Temperature 97.6 F Pulse Rate 72 76 Respiratory Rate 15 16 19 Blood Pressure 110/68 Pulse Oximetry 99 03/02/18 20:00 03/02/18 20:03 03/02/18 23:15 Temperature 97.6 F Pulse Rate 74 79 Respiratory Rate 16 16 Blood Pressure 99/63 L Pulse Oximetry 98 94 L 03/03/18 00:00 03/03/18 04:00 03/03/18 07:46 Temperature 97.6 F 97.6 F Pulse Rate 82 74 77 Respiratory Rate 14 13 Blood Pressure 102/61 102/63 Pulse Oximetry 94 L 97 03/03/18 07:48 03/03/18 07:49 03/03/18 09:00 Temperature 97.6 F Pulse Rate 68 77 Respiratory Rate 16 Blood Pressure 121/64 Pulse Oximetry 99 99 03/03/18 09:53 Temperature Pulse Rate Respiratory Rate 21 Blood Pressure Pulse Oximetry Intake & Output 03/02/18 03/03/18 03/03/18 18:59 06:59 18:59 Intake Total 1580 / 1580 1830 / 1830 900 / 900 Output Total 800 / 800 850 / 850 Balance 780 / 780 980 / 980 900 / 900 Weight 52.8 kg Intake: IV 1100 / 1100 1350 / 1350 900 / 900 Cordarone Inj 450 MG In D5W Inj 250 / 250 241 ML @ 1 MG/MIN 33.33 mls/hr IV.CONT TITRATE PRN Rx#: [id number] NS Inj 1,000 ML @ 100 mls/hr IV 1000 / 1000 1000 / 1000 900 / 900 .CONT .Q10H SUSIE Rx#:[id number] Zosyn 3.375 GM Premix 50 ML @ 100 / 100 100 / 100 100 mls/hr IV.SIG Q6H SUSIE Rx#: [id number] Oral 480 / 480 480 / 480 Output: Urine 800 / 800 850 / 850 Other: # Voids 2 Date of Last Bowel Movement 03/01/18 03/01/18 03/01/18 Narrative: The patient is alert, awake. Comfortable, in no acute distress. Speech is fluent. Cranial nerve examination: pupils to be equal, round and reactive to light. Extra-ocular movements are intact. Facial motor and sensory function are normal and symmetrical. Gross hearing appears intact. Sternocleidomastoid and trapezius muscles are symmetrical. Other cranial nerves are intact. Neck is soft and supple with a good range of motion without pain. Muscle strength is normal in all muscle groups of both upper and lower extremities. Sensory examination is intact to light touch and pin prick in both the upper and lower extremities. Deep tendon reflexes are symmetrical in both upper and lower extremities. There is a bilateral plantar flexion response. Cerebellar examination is unremarkable, without deficits. Lungs are clear Heart regular rhythm is regular rate Skin warm and dry HEENT/Neuro: No pallor or icterus, tongue moist, MARIA ELENA, Awake alert oriented 3 , nonfocal grossly, moving all 4 extremities Neck: No JVD Chest/pulmonary: Air entry decreased over right base. Scattered rhonchi, no wheezing Cardiovascular: S1-S2 regular no gallop or murmur GI/abdomen: Soft, nontender, bowel sounds present Extremities: Warm bilaterally, no edema. Healed incision scar noted over right leg Assessment and Plan - Plan 62-year-old male with: A. fib with RVR Hypotension Leukocytosis with suspected sepsis Possible right lower lobe pneumonia Possible cholecystitis Hepatomegaly Occipital lobe lesion Unintentional weight loss Suspected underlying malignancy I reviewed his radiological studies including Venous Doppler Study 03/01/18 20:39 CONCLUSION: 1. The study is negative for bilateral lower extremity deep venous thrombosis. Chest CTA 03/01/18 21:06 CONCLUSION: 1. This study is negative for pulmonary embolism. 2. Dense consolidation in the right lower lobe without air bronchograms and with truncation of the bronchus to the right lower lobe. This suggests an obstructing lesion. Recommend direct visualization with bronchoscopy. 3. Multiple right-sided pleural and subpleural nodules measuring up to 2 cm in size. 4. Scattered areas of subcutaneous and deep soft tissue gas in the low neck and supraclavicular region. Abdomen/Pelvis CT 03/01/18 21:29 CONCLUSION: 1. Hepatomegaly without focal lesion. 2. Prominent amount of pericholecystic fluid without calcified gallstones suggests possible acalculous cholecystitis. 3. Abnormal appearance to the right lower lung, described on CT pulmonary angiogram report. 4. Bilateral mildly prominent inguinal lymph nodes. 5. Moderately distended stomach. Head CT 03/01/18 21:38 CONCLUSION: 1. Findings suggest a 6 mm mass in the left occipital white matter. Recommend further characterization using MRI with and without contrast. Gallbladder Ultrasound 03/02/18 00:00 CONCLUSION: 1. No evidence of gallstones or biliary tract obstruction. 2. There is thickening of the gallbladder wall 9 mm suggestive of at least chronic gallbladder disease. 3. Increased echogenicity of the liver parenchyma suggestive of fatty infiltration and/or hepatocellular disease. Head MRI 03/02/18 00:00 CONCLUSION: 1. The examination demonstrates a 0.8 x 0.8 x 0.8 mm homogeneously enhancing mass in the subependymal region of the posterior horn of the left lateral ventricle. Primary consideration would be a focal metastatic lesion. 2. There are some scattered punctate areas of abnormal restricted diffusion signal in the watershed distribution posteriorly on the left. 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 Chest X-Ray 03/03/18 06:00 CONCLUSION: Right basilar lung consolidation and pleural effusion. Findings similar to March 01. Left lung remains clear. MRI brain was reviewed. recommend radiation oncology Cardiovascular: Aggressive fluid resuscitation, Levophed for pressor support. Will add low-dose vasopressin. On amiodarone gtt. for A. fib. Obtain 2D echo. Follow lactic acid Pulmonary: Supplemental O2, bronchodilators as needed. Pulmonary consult for further evaluation of right lower lobe consolidation. GI/liver: Hepatomegaly fluid around gallbladder. Will obtain GI consult for further evaluation. Daily PT and OT Renal: Continue to monitor closely urine output, BUN and creatinine Endocrine: Continue to Monitor serial Acu checks and SSI as needed in detail ID continue to monitor for signs of infection Continue Protonix for stress ulcer prophylaxis Continue Steven hose and SCD's for DVT prophylaxis Further recommendations will be provided depending on the patient's clinical evaluation and follow up studies. Caprini VTE Risk Assessment Caprini VTE Risk Assessment: Moderate/High Risk (score >= 2) Caprini Risk Assessment Model: Point Value = 1 Point Value = 2 Point Value = 3 Point Value = 5 Age 41-60 Minor surgery BMI > 25 kg/m2 Swollen legs Varicose veins or History of unexplained or recurrent spontaneous Oral contraceptives or hormone replacement Sepsis (< 1 month) Serious lung disease, including pneumonia (< 1 month) Abnormal pulmonary function Acute myocardial infarction Congestive heart failure (< 1 month) History of inflammatory bowel disease Medical patient at bed rest Age 61-74 Arthroscopic surgery Major open surgery (> 45 min) Laparoscopic surgery (> 45 min) Malignancy Confined to bed (> 72 hours) Immobilizing plaster cast Central venous access Age >= 75 History of VTE Family history of VTE Factor V Leiden Prothrombin [id number] Lupus anticoagulant Anticardiolipin antibodies Elevated serum homocysteine Heparin-induced thrombocytopenia Other congenital or acquired thrombophilia Stroke (< 1 month) Elective arthroplasty Hip, pelvis, or leg fracture Acute spinal cord injury (< 1 month) Prophylaxis Regimen: Total Risk Factor Score Risk Level Prophylaxis Regimen 0-1 Low Early ambulation 2 Moderate Order ONE of the following: *Sequential Compression Device (SCD) *Heparin 5000 units SQ BID 3-4 Higher Order ONE of the following medications: *Heparin 5000 units SQ TID *Enoxaparin/Lovenox 40 mg SQ daily (WT < 150 kg, CrCl > 30 mL/min) *Enoxaparin/Lovenox 30 mg SQ daily (WT < 150 kg, CrCl > 10-29 mL/min) *Enoxaparin/Lovenox 30 mg SQ BID (WT < 150 kg, CrCl > 30 mL/min) AND/OR *Sequential Compression Device (SCD) 5 or more Highest Order ONE of the following medications: *Heparin 5000 units SQ TID (Preferred with Epidurals) *Enoxaparin/Lovenox 40 mg SQ daily (WT < 150 kg, CrCl > 30 mL/min) *Enoxaparin/Lovenox 30 mg SQ daily (WT < 150 kg, CrCl > 10-29 mL/min) *Enoxaparin/Lovenox 30 mg SQ BID (WT < 150 kg, CrCl > 30 mL/min) AND *Sequential Compression Device (SCD) Head CT 03/01/18 21:38 CONCLUSION: 1. Findings suggest a 6 mm mass in the left occipital white matter. Recommend further characterization using MRI with and without contrast. I do not even see the mass. Reciommend an MRI brain NORBERTO Cardiovascular: Aggressive fluid resuscitation, Levophed for pressor support. Will add low-dose vasopressin. On amiodarone gtt. for A. fib. Obtain 2D echo. Follow lactic acid Pulmonary: Supplemental O2, bronchodilators as needed. Pulmonary consult for further evaluation of right lower lobe consolidation. GI/liver: Hepatomegaly fluid around gallbladder. Will obtain GI consult for further evaluation. Daily PT and OT Renal: Continue to monitor closely urine output, BUN and creatinine Endocrine: Continue to Monitor serial Acu checks and SSI as needed in detail ID continue to monitor for signs of infection Continue Protonix for stress ulcer prophylaxis Continue Steven hose and SCD's for DVT prophylaxis Further recommendations will be provided depending on the patient's clinical evaluation and follow up studies. Caprini VTE Risk Assessment Caprini VTE Risk Assessment: Moderate/High Risk (score >= 2) Caprini Risk Assessment Model: Point Value = 1 Point Value = 2 Point Value = 3 Point Value = 5 Age 41-60 Minor surgery BMI > 25 kg/m2 Swollen legs Varicose veins or History of unexplained or recurrent spontaneous Oral contraceptives or hormone replacement Sepsis (< 1 month) Serious lung disease, including pneumonia (< 1 month) Abnormal pulmonary function Acute myocardial infarction Congestive heart failure (< 1 month) History of inflammatory bowel disease Medical patient at bed rest Age 61-74 Arthroscopic surgery Major open surgery (> 45 min) Laparoscopic surgery (> 45 min) Malignancy Confined to bed (> 72 hours) Immobilizing plaster cast Central venous access Age >= 75 History of VTE Family history of VTE Factor V Leiden Prothrombin [id number] Lupus anticoagulant Anticardiolipin antibodies Elevated serum homocysteine Heparin-induced thrombocytopenia Other congenital or acquired thrombophilia Stroke (< 1 month) Elective arthroplasty Hip, pelvis, or leg fracture Acute spinal cord injury (< 1 month) Prophylaxis Regimen: Total Risk Factor Score Risk Level Prophylaxis Regimen 0-1 Low Early ambulation 2 Moderate Order ONE of the following: *Sequential Compression Device (SCD) *Heparin 5000 units SQ BID 3-4 Higher Order ONE of the following medications: *Heparin 5000 units SQ TID *Enoxaparin/Lovenox 40 mg SQ daily (WT < 150 kg, CrCl > 30 mL/min) *Enoxaparin/Lovenox 30 mg SQ daily (WT < 150 kg, CrCl > 10-29 mL/min) *Enoxaparin/Lovenox 30 mg SQ BID (WT < 150 kg, CrCl > 30 mL/min) AND/OR *Sequential Compression Device (SCD) 5 or more Highest Order ONE of the following medications: *Heparin 5000 units SQ TID (Preferred with Epidurals) *Enoxaparin/Lovenox 40 mg SQ daily (WT < 150 kg, CrCl > 30 mL/min) *Enoxaparin/Lovenox 30 mg SQ daily (WT < 150 kg, CrCl > 10-29 mL/min) *Enoxaparin/Lovenox 30 mg SQ BID (WT < 150 kg, CrCl > 30 mL/min) AND *Sequential Compression Device (SCD)
[2018-03-03] MEDS: Docusate Sodium 100 MG Capsule PO SCH ×2 (16:04→21:35)
--- NOTE | 2018-03-03 16:04 | P.PNGI ---
Subjective Interval history: Pt complains of pain in his chest and SOB. Denies nausea, vomiting, abdominal pain. <Tami Aquino - Last Filed: 03/03/18 16:01> Physical Exam Vital signs: Vital Signs 03/02/18 17:14 03/02/18 17:39 03/02/18 20:00 Temperature 97.6 F Pulse Rate 76 74 Respiratory Rate 16 19 16 Blood Pressure 99/63 L Pulse Oximetry 98 03/02/18 20:03 03/02/18 23:15 03/03/18 00:00 Temperature 97.6 F Pulse Rate 79 82 Respiratory Rate 16 14 Blood Pressure 102/61 Pulse Oximetry 94 L 94 L 03/03/18 04:00 03/03/18 07:46 03/03/18 07:48 Temperature 97.6 F Pulse Rate 74 77 Respiratory Rate 13 Blood Pressure 102/63 Pulse Oximetry 97 99 03/03/18 07:49 03/03/18 09:00 03/03/18 09:53 Temperature 97.6 F Pulse Rate 68 77 Respiratory Rate 16 21 Blood Pressure 121/64 Pulse Oximetry 99 03/03/18 11:55 03/03/18 12:01 Temperature 97.6 F Pulse Rate 75 82 Respiratory Rate 14 22 Blood Pressure 140/77 Pulse Oximetry 99 Intake & Output 03/02/18 03/03/18 03/03/18 18:59 06:59 18:59 Intake Total 1580 / 1580 1830 / 1830 1150 / 1150 Output Total 800 / 800 850 / 850 Balance 780 / 780 980 / 980 1150 / 1150 Weight 52.8 kg Intake: IV 1100 / 1100 1350 / 1350 1150 / 1150 Cordarone Inj 450 MG In D5W Inj 250 / 250 250 / 250 241 ML @ 1 MG/MIN 33.33 mls/hr IV.CONT TITRATE PRN Rx#: [id number] NS Inj 1,000 ML @ 100 mls/hr IV 1000 / 1000 1000 / 1000 900 / 900 .CONT .Q10H [facility] Rx#:[id number] Zosyn 3.375 GM Premix 50 ML @ 100 / 100 100 / 100 100 mls/hr IV.SIG Q6H [facility] Rx#: [id number] Oral 480 / 480 480 / 480 Output: Urine 800 / 800 850 / 850 Other: # Voids 2 Date of Last Bowel Movement 03/01/18 03/01/18 03/01/18 - Constitutional no acute distress - Routine HEENT Exam Head: Present: normocephalic, atraumatic - Routine Abdominal Exam Present: soft, normoactive bowel sounds. Absent: tenderness - Routine Skin Exam Present: dry, warm - Routine Neurological Exam Present: alert, oriented X3 <Tami Aquino - Last Filed: 03/03/18 16:01> Vital signs: Vital Signs 03/02/18 23:15 03/03/18 00:00 03/03/18 04:00 Temperature 97.6 F 97.6 F Pulse Rate 79 82 74 Respiratory Rate 16 14 13 Blood Pressure 102/61 102/63 Pulse Oximetry 94 L 97 03/03/18 07:46 03/03/18 07:48 03/03/18 07:49 Temperature 97.6 F Pulse Rate 77 68 Respiratory Rate 16 Blood Pressure 121/64 Pulse Oximetry 99 99 03/03/18 08:31 03/03/18 09:00 03/03/18 09:53 Temperature Pulse Rate 77 Respiratory Rate 21 Blood Pressure Pulse Oximetry 99 03/03/18 11:55 03/03/18 12:01 03/03/18 16:00 Temperature 97.6 F 97.6 F Pulse Rate 75 82 75 Respiratory Rate 14 22 20 Blood Pressure 140/77 111/80 Pulse Oximetry 99 98 03/03/18 16:02 03/03/18 16:24 03/03/18 20:33 Temperature Pulse Rate 73 93 H Respiratory Rate 19 19 25 H Blood Pressure Pulse Oximetry 03/03/18 20:34 Temperature Pulse Rate Respiratory Rate Blood Pressure Pulse Oximetry 96 Intake & Output 03/03/18 03/03/18 03/04/18 06:59 18:59 06:59 Intake Total 1830 / 1830 1969 Output Total 850 / 850 Balance 980 / 980 1969 Weight 52.8 kg Intake: IV 1350 / 1350 1250 / 1250 Cordarone Inj 450 MG In D5W Inj 250 / 250 250 / 250 241 ML @ 1 MG/MIN 33.33 mls/hr IV.CONT TITRATE PRN Rx#: [id number] NS Inj 1,000 ML @ 100 mls/hr IV 1000 / 1000 900 / 900 .CONT .Q10H [facility] Rx#:[id number] Zosyn 3.375 GM Premix 50 ML @ 100 / 100 100 / 100 100 mls/hr IV.SIG Q6H [facility] Rx#: [id number] Oral 480 / 480 720 / 720 Output: Urine 850 / 850 Other: # Voids 2 3 Date of Last Bowel Movement 03/01/18 03/01/18 # Bowel Movements 0 <Sa Baldoud E - Last Filed: 03/03/18 22:45> Results - Labs CBC & Chem 7: 03/03/18 07:00 03/03/18 07:00 Laboratory Results - last 24 hr 03/02/18 03/03/18 03/03/18 12:44 07:00 07:00 WBC 27.8 H RBC 4.15 L Hgb 10.5 L Hct 33.4 L MCV 80.6 MCH 25.4 L MCHC 31.5 L RDW 17.2 Plt Count 284 MPV 7.9 Neut % (Auto) 93.8 H Lymph % (Auto) 2.8 L Aurora % (Auto) 3.4 Eos % (Auto) 0.0 Baso % (Auto) 0.0 Neut # (Auto) 26.0 H Lymph # (Auto) 0.8 L Aurora # (Auto) 0.9 Eos # (Auto) 0.0 Baso # (Auto) 0.0 WBC Differential . Differential Comment Auto diff final Sodium 139 Potassium 3.6 Chloride 107 Carbon Dioxide 21.1 Anion Gap 11 BUN 23 H Creatinine 0.90 Estimated GFR 85 L Random Glucose 113 H Calcium 8.1 L Phosphorus 3.2 Magnesium 1.9 Iron 10 L TIBC 189 L % Saturation 5.3 L Total Bilirubin 0.3 AST 171 H ALT 143 H Alkaline Phosphatase 137 H Total Protein 6.3 L Albumin 1.8 L Microbiology 03/01/18 22:55 Blood - Peripheral Aerobic Blood Culture - Preliminary No growth in 2 days 03/01/18 22:55 Blood - Peripheral Anaerobic Blood Culture - Preliminary No growth in 2 days 03/01/18 23:00 Blood - Peripheral Aerobic Blood Culture - Preliminary No growth in 2 days 03/01/18 23:00 Blood - Peripheral Anaerobic Blood Culture - Preliminary No growth in 2 days - Imaging Impressions Chest CTA 03/01/18 21:06 CONCLUSION: 1. This study is negative for pulmonary embolism. 2. Dense consolidation in the right lower lobe without air bronchograms and with truncation of the bronchus to the right lower lobe. This suggests an obstructing lesion. Recommend direct visualization with bronchoscopy. 3. Multiple right-sided pleural and subpleural nodules measuring up to 2 cm in size. 4. Scattered areas of subcutaneous and deep soft tissue gas in the low neck and supraclavicular region. Head MRI 03/02/18 00:00 CONCLUSION: 1. The examination demonstrates a 0.8 x 0.8 x 0.8 mm homogeneously enhancing mass in the subependymal region of the posterior horn of the left lateral ventricle. Primary consideration would be a focal metastatic lesion. 2. There are some scattered punctate areas of abnormal restricted diffusion signal in the watershed distribution posteriorly on the left. 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 Chest X-Ray 03/03/18 06:00 CONCLUSION: Right basilar lung consolidation and pleural effusion. Findings similar to March 01. Left lung remains clear. <Tami Aquino - Last Filed: 03/03/18 16:01> - Labs CBC & Chem 7: 03/03/18 07:00 03/03/18 07:00 Laboratory Results - last 24 hr 03/02/18 03/03/18 03/03/18 12:44 07:00 07:00 WBC 27.8 H RBC 4.15 L Hgb 10.5 L Hct 33.4 L MCV 80.6 MCH 25.4 L MCHC 31.5 L RDW 17.2 Plt Count 284 MPV 7.9 Neut % (Auto) 93.8 H Lymph % (Auto) 2.8 L Aurora % (Auto) 3.4 Eos % (Auto) 0.0 Baso % (Auto) 0.0 Neut # (Auto) 26.0 H Lymph # (Auto) 0.8 L Aurora # (Auto) 0.9 Eos # (Auto) 0.0 Baso # (Auto) 0.0 WBC Differential . Differential Comment Auto diff final Sodium 139 Potassium 3.6 Chloride 107 Carbon Dioxide 21.1 Anion Gap 11 BUN 23 H Creatinine 0.90 Estimated GFR 85 L Random Glucose 113 H Calcium 8.1 L Phosphorus 3.2 Magnesium 1.9 Iron 10 L TIBC 189 L % Saturation 5.3 L Total Bilirubin 0.3 AST 171 H ALT 143 H Alkaline Phosphatase 137 H Total Protein 6.3 L Albumin 1.8 L Microbiology 03/01/18 22:55 Blood - Peripheral Aerobic Blood Culture - Preliminary No growth in 2 days 03/01/18 22:55 Blood - Peripheral Anaerobic Blood Culture - Preliminary No growth in 2 days 03/01/18 23:00 Blood - Peripheral Aerobic Blood Culture - Preliminary No growth in 2 days 03/01/18 23:00 Blood - Peripheral Anaerobic Blood Culture - Preliminary No growth in 2 days - Imaging Impressions Chest CTA 03/01/18 21:06 CONCLUSION: 1. This study is negative for pulmonary embolism. 2. Dense consolidation in the right lower lobe without air bronchograms and with truncation of the bronchus to the right lower lobe. This suggests an obstructing lesion. Recommend direct visualization with bronchoscopy. 3. Multiple right-sided pleural and subpleural nodules measuring up to 2 cm in size. 4. Scattered areas of subcutaneous and deep soft tissue gas in the low neck and supraclavicular region. Chest X-Ray 03/03/18 06:00 CONCLUSION: Right basilar lung consolidation and pleural effusion. Findings similar to March 01. Left lung remains clear. <Gonzalo Bland E - Last Filed: 03/03/18 22:45> Assessment and Plan (1) Hepatomegaly Status: Acute Code(s): R16.0 - Hepatomegaly, not elsewhere classified - Plan Assessment: - Hepatomegaly on imaging- Pt reports some nausea but states this is secondary to him withdrawing from his home pain medication that he has not had since yesterday. Normally on Roxicodone and Morphine. Denies personal or family history of liver issues. Denies Tylenol and any other OTC medication. No new prescription medication. Denies ETOH use, drug use, history of IV drug use, high risk sexual behaviors. Has 2 tattoos, both done in tattoo parlors. LFTs trending up from yesterday AST-254 ALT-125 Alk phos-199 T bili-0.9 - Possible acalculous cholecystitis seen on CT- Leukocytosis- pt with some epigastric tenderness but denies tenderness to RUQ CT abdomen and pelvis W IV contrast --> Hepatomegaly without focal lesion. Prominent amount of pericholecystic fluid without calcified gallstones suggests possible acalculous cholecystitis. Abnormal appearance to the right lower lung, described on CT pulmonary angiogram report. Bilateral mildly prominent inguinal lymph nodes. Moderately distended stomach. - SOB- respiratory acidosis - A-fib RVR on admission, new, rate controlled (03/03) Pt with no GI complaints. Amiodarone discontinued. Some decrease in LFTs today. Hep C antibody positive, genotype and quant ordered. Liver PADRON pending. Gallbladder US --> No evidence of gallstones or biliary tract obstruction. There is thickening of the gallbladder wall 9 mm suggestive of at least chronic gallbladder disease. Increased echogenicity of the liver parenchyma suggestive of fatty infiltration and or hepatocellular disease Plan: Liver PADRON pending avoid hepatotoxins Further recommendations based on clinical course and results of above Pt has been seen and examined by myself and Dr. Bland and this note is written on his behalf <Tami Aquino - Last Filed: 03/03/18 16:01> (1) Hepatomegaly Status: Acute Code(s): R16.0 - Hepatomegaly, not elsewhere classified - Attending Attestation Patient seen and examined Agree with above Continue with current supportive care Monitor labs Liver workup in progress May consider liver biopsy if all is negative Could be drug-induced hepatitis and correlation with hepatitis C <Gonzalo Bland - Last Filed: 03/03/18 22:45>
--- NOTE | 2018-03-03 19:11 | P.PNPL ---
Subjective Interval history: 62 YOWM with RLL mass, AF,brain mass breathing better Weaned to RA AF rate controlled Physical Exam Vital signs: Vital Signs 03/02/18 20:00 03/02/18 20:03 03/02/18 23:15 Temperature 97.6 F Pulse Rate 74 79 Respiratory Rate 16 16 Blood Pressure 99/63 L Pulse Oximetry 98 94 L 03/03/18 00:00 03/03/18 04:00 03/03/18 07:46 Temperature 97.6 F 97.6 F Pulse Rate 82 74 77 Respiratory Rate 14 13 Blood Pressure 102/61 102/63 Pulse Oximetry 94 L 97 03/03/18 07:48 03/03/18 07:49 03/03/18 08:31 Temperature 97.6 F Pulse Rate 68 Respiratory Rate 16 Blood Pressure 121/64 Pulse Oximetry 99 99 99 03/03/18 09:00 03/03/18 09:53 03/03/18 11:55 Temperature 97.6 F Pulse Rate 77 75 Respiratory Rate 21 14 Blood Pressure 140/77 Pulse Oximetry 99 03/03/18 12:01 03/03/18 16:00 03/03/18 16:02 Temperature 97.6 F Pulse Rate 82 75 Respiratory Rate 22 20 19 Blood Pressure 111/80 Pulse Oximetry 98 03/03/18 16:24 Temperature Pulse Rate 73 Respiratory Rate 19 Blood Pressure Pulse Oximetry Intake & Output 03/03/18 03/03/18 03/04/18 06:59 18:59 06:59 Intake Total 1830 / 1830 1969 Output Total 850 / 850 Balance 980 / 980 1969 Weight 52.8 kg Intake: IV 1350 / 1350 1250 / 1250 Cordarone Inj 450 MG In D5W Inj 250 / 250 250 / 250 241 ML @ 1 MG/MIN 33.33 mls/hr IV.CONT TITRATE PRN Rx#: [id number] NS Inj 1,000 ML @ 100 mls/hr IV 1000 / 1000 900 / 900 .CONT .Q10H SUSIE Rx#:[id number] Zosyn 3.375 GM Premix 50 ML @ 100 / 100 100 / 100 100 mls/hr IV.SIG Q6H SUSIE Rx#: [id number] Oral 480 / 480 720 / 720 Output: Urine 850 / 850 Other: # Voids 2 3 Date of Last Bowel Movement 03/01/18 03/01/18 # Bowel Movements 0 GENERAL: MBMN WM,NAD SKIN: Warm and dry. HEAD: Normocephalic. EYES: No scleral icterus. No injection or drainage. NECK: Supple, trachea midline. No JVD or lymphadenopathy. CARDIOVASCULAR: Regular rate and rhythm without murmurs, gallops, or rubs. RESPIRATORY: Breath sounds equal bilaterally. No accessory muscle use. GASTROINTESTINAL: Abdomen soft, non-tender, nondistended. MUSCULOSKELETAL: No cyanosis, or edema. BACK: Nontender without obvious deformity. No CVA tenderness. Assessment and Plan - Plan IMPRESSION: 1. Right lower lobe density with obstruction in the right lower lobe. Need to rule out endobronchial lesion. 2. Weight loss. 3. Chronic obstructive pulmonary disease. 4. Nicotine use 5. Occipital lobe lesion. 5. Possible cholecystitis. 6. Leukocytosis. PLAN: DW Pt Will need bronch Explained procedure including complications of anesthesia, arrythmias, Hypoxia, Need for vent ,ptx, non diagnostic bx He agrees to proceed Will counts include 234 beds at the [facility] for AM
[2018-03-04] MEDS: Piperacil/Tazo 3.375 GM Premix 50 ML IV.SIG SCH ×4 (05:11→22:00)
--- NOTE | 2018-03-04 05:23 | XR ---
EXAM DATE: 03/04/2018 5:03 AM EDT AGE/SEX: 62 years / Male INDICATIONS: Respiratory disease. CLINICAL DATA: This is the patient's subsequent encounter. Patient reports that signs and symptoms h ave been present for 4 - 6 days and indicates a pain score of Nonresponsive. MEDICAL/SURGICAL HISTORY: None. None. [place] [facility] [place]. . FINDINGS: Consolidation left small to moderate pleural effusion and mild volume loss again noted at the right b ase, not significantly changed. Left lung remains clear. No pneumothorax on either side. Heart size stable, upper limits of normal. CONCLUSION: No significant change right base consolidation with small to moderate pleural effusion and mild volum e loss. Electronically signed by: Dheeraj Stratton MD 03/04/2018 5:22 AM EDT
[2018-03-04] MEDS: Morphine Inj 4 MG/ML Vial IV.PUSH PRN ×2 (05:30→17:05)
[2018-03-04] MEDS: Hydrocortisone Sod Succinate 100 MG Vial IV.PUSH SCH ×3 (05:49→21:24)
[2018-03-04] MEDS: Chlorhexidine Gluconate 2% 1 Pack (2 Cloths) TOPICAL SCH (06:15)
[2018-03-04 06:16] LABS: Hemoglobin 10.3 gm/dL (13.0-17.0); Mean Corpuscular HGB Conc 31.2 % (32.0-36.0); Mean Corpuscular Hemoglobin 25.1 pg (27.0-34.0); Mean Corpuscular Volume 80.2 fL (80.0-100.0); Mean Platelet Volume 8.2 fL (7.0-11.0); Platelet Count 284 th/mm3 (150-450); Red Blood Count 4.12 mil/mm3 (4.50-5.90); Red Cell Distribution Width 17.1 % (11.6-17.2); White Blood Count 20.6 th/mm3 (4.0-11.0)
[2018-03-04 06:39] LABS: Albumin 1.9 g/dL (3.4-5.0); Anion Gap 11 meq/L (5-15); Aspartate Aminotransferase 68 U/L (15-37); Blood Urea Nitrogen 22 mg/dL (7-18); Calcium 8.3 mg/dL (8.5-10.1); Carbon Dioxide 22.6 meq/L (21.0-32.0); Chloride 106 meq/L (98-107); Glomerular Filtration Rate 87 mL/min (>89); Glucose,Random 116 mg/dL (74-106); Magnesium 2.1 mg/dL (1.5-2.5); Potassium 3.3 meq/L (3.5-5.1); Sodium 140 meq/L (136-145)
[2018-03-04 06:41] LABS: Alanine Aminotransferase 104 U/L (12-78)
[2018-03-04 06:43] LABS: Alkaline Phosphatase 124 U/L (45-117); Total Protein 6.2 g/dL (6.4-8.2)
--- NOTE | 2018-03-04 09:20 | P.CONIM ---
History of Present Illness Service: [facility] Consult date: 03/04/18 Reason for Consult: transfer from ICU Primary Care Provider: UNKNOWN Family Provider: UNKNOWN Chief Complaint: Chest pain, Not feeling well for few weeks History of Present Illness: Mr. Mendez is a 62 yo M who presented to [place] ED 03/01 with chest pain and shortness of breath; patient found to have A fib with RVR and was placed on Lopressor resulting in hypotension so was placed on Levophed. patient empirically treated for sepsis with Zosyn. Imaging during hospitalization demonstrated concern for occipital lesion, right lower lobe mass with some invasion into IVC. Patient will have bronchoscopy and biopsy of mass, f/u with Neurosurgery for head imaging, and GI evaluation during hospitalization. Due to improvement in afib and general stabilization in clinical status, patient transferred from critical care to hospitalist service 03/04. Mr. Mendez was afebrile with stable vital signs overnight. Per discussion with nursing staff, he has had stable HR <100 generally. Patient reports diffuse pain; he requests increase in morphine due to long standing pain treatment at home. Patient states that his breathing is improved. No urinary or bowel complaints. Patient has not been able to feel tachycardia/ palpitations from Afib Review of Systems Constitutional: Reports anorexia, Reports weight loss Eyes: Denies discharge, Denies dry eyes Ears, Nose, Mouth, and Throat: Denies headache(s), Denies mouth pain Cardiovascular: Reports irregular heart rhythm, Denies chest pain, Denies lightheadedness Respiratory: Reports shortness of breath Gastrointestinal: Denies abdominal pain, Denies incontinent of stools, Denies vomiting blood Musculoskeletal: Reports body aches, Reports decreased muscle mass Neurologic: Reports weakness, Denies headache(s), Denies loss of vision PMFSH - History History Provided By: Patient - Medical History Medical History: Medical History (Last Reviewed 03/02/18 @ 11:38 by Silvano Crowe MD) Edema (Acute) Back pain (Acute) Bone marrow transplant infection (Chronic) - Tobacco History Tobacco Type: Cigarettes - Alcohol History How Often Do You Have a Drink Containing Alcohol: 2 to 3 times a week - Substance Use History Substance History: No History of Abuse - Travel History Recent Travel in the [place] Within the Last 8 Weeks: No Recent Travel Out of the Country Within the Last 8 Weeks: No - Immunization History Tetanus Immunization: <5 Years Hx Influenza Vaccine This Season: No Medications and Allergies Active Medications: Active Medications Al Hydroxide/Mg Hydroxide (Milk Of Magnesia Liq) 30 ml PO Q12H PRN PRN Reason: Mild Constipation Albuterol (Duoneb Neb (Prn)) 1 ampul NEB Q2HR NEB PRN PRN Reason: WHEEZING Albuterol (Duoneb Neb (Flower)) 1 ampul NEB Q6HR NEB [facility] Last Admin: 03/04/18 08:30 Dose: 1 ampul Bisacodyl (Dulcolax Supp) 10 mg RECTAL DAILY PRN PRN Reason: SEVERE CONSITIPATION Chlorhexidine Gluconate (Chlorhexidine 2% Cloth) 3 pack TOPICAL DAILY@0400 [facility] Stop: 03/07/18 03:59 Last Admin: 03/04/18 06:15 Dose: 3 pack Chlorhexidine Gluconate (Chlorhexidine 2% Cloth) 3 pack TOPICAL DAILY@0400 PRN PRN Reason: Extra cloth needed Stop: 03/07/18 03:59 Docusate Sodium (Colace) 100 mg PO BID [facility] Last Admin: 03/03/18 21:35 Dose: 100 mg Hydrocortisone Sodium Succinate (Solucortef Inj) 100 mg IV.PUSH Q8HR [facility] Last Admin: 03/04/18 05:49 Dose: 100 mg Piperacillin/Tazobactam/Dextrose (Zosyn 3.375 Gm Premix) 50 mls @ 100 mls/hr IV.SIG Q6H [facility] Last Admin: 03/04/18 05:11 Dose: 100 mls/hr Lactulose (Lactulose Liq) 30 ml PO DAILY PRN PRN Reason: SEVERE CONSITIPATION Metoprolol Tartrate (Lopressor) 25 mg PO BID [facility] Last Admin: 03/03/18 23:48 Dose: 25 mg Metoprolol Tartrate (Lopressor Inj) 2.5 mg IV.PUSH Q6H PRN PRN Reason: HR >115 Morphine Sulfate (Morphine Inj) 4 mg IV.PUSH Q4H PRN PRN Reason: PAIN 6-10;IF UNABLE TO TAKE PO Last Admin: 03/04/18 05:30 Dose: 4 mg Ondansetron HCl (Zofran Inj) 4 mg IV.PUSH Q6H PRN PRN Reason: NAUSEA OR VOMITING Last Admin: 03/03/18 09:20 Dose: 4 mg Oxycodone HCl (Roxicodone) 30 mg PO Q4H PRN PRN Reason: SEE LABEL COMMENTS Last Admin: 03/04/18 09:08 Dose: 30 mg Pantoprazole Sodium (Protonix Inj) 40 mg IV.PUSH DAILY [facility] Last Admin: 03/03/18 09:19 Dose: 40 mg Senna/Docusate Sodium (Heather-Colace) 1 tab PO BID [facility] Last Admin: 03/03/18 21:35 Dose: 1 tab Sennosides (Senokot) 17.2 mg PO Q12H PRN PRN Reason: Moderate Constipation Sodium Chloride (Ns Flush) 2 ml IV.FLUSH UNSCH PRN PRN Reason: FLUSH AFTER USING IV ACCESS Last Admin: 03/01/18 22:50 Dose: 2 ml Sodium Chloride (Ns Flush) 2 ml IV.FLUSH BID [facility] Last Admin: 03/03/18 21:36 Dose: 2 ml Sodium Chloride (Ns Flush) 2 ml IV.FLUSH PRN PRN PRN Reason: FLUSH AFTER USING IV ACCESS Allergies Allergy/AdvReac Type Severity Reaction Status Date / Time No Known Allergies Allergy Verified 03/02/18 16:51 Home Medications Medication Instructions Recorded Confirmed Type docusate sodium 100 mg PO BID 03/03/18 03/03/18 History meloxicam 15 mg PO ONCE 03/03/18 03/03/18 History morphine [MS Contin] 100 mg PO Q8H 03/03/18 03/03/18 History oxycodone 30 mg PO Q4-6H PRN MDD 2.5 tablets 03/03/18 03/03/18 History Exam Vital signs: Vital Signs 03/03/18 09:53 03/03/18 11:55 03/03/18 12:01 Temperature 97.6 F Pulse Rate 75 82 Respiratory Rate 21 14 22 Blood Pressure 140/77 Pulse Oximetry 99 03/03/18 16:00 03/03/18 16:02 03/03/18 16:24 Temperature 97.6 F Pulse Rate 75 73 Respiratory Rate 20 19 19 Blood Pressure 111/80 Pulse Oximetry 98 03/03/18 20:00 03/03/18 20:33 03/03/18 20:34 Temperature 97.7 F Pulse Rate 90 93 H Respiratory Rate 17 25 H Blood Pressure 106/63 Pulse Oximetry 95 96 03/03/18 23:37 03/04/18 00:00 03/04/18 04:00 Temperature 97.7 F 97.5 F L Pulse Rate 94 H 90 Respiratory Rate 12 14 12 Blood Pressure 116/73 127/74 Pulse Oximetry 94 L 95 03/04/18 08:30 Temperature Pulse Rate 94 H Respiratory Rate 17 Blood Pressure Pulse Oximetry 96 Intake & Output 03/03/18 03/04/18 03/04/18 18:59 06:59 18:59 Intake Total 1969 50 / 50 Output Total 400 / 400 Balance 1969 -350 / -350 Weight 52.4 kg Intake: IV 1250 / 1250 50 / 50 Cordarone Inj 450 MG In D5W Inj 250 / 250 241 ML @ 1 MG/MIN 33.33 mls/hr IV.CONT TITRATE PRN Rx#: [id number] NS Inj 1,000 ML @ 100 mls/hr IV 900 / 900 .CONT .Q10H [facility] Rx#:[id number] Zosyn 3.375 GM Premix 50 ML @ 100 / 100 50 / 50 100 mls/hr IV.SIG Q6H [facility] Rx#: [id number] Oral 720 / 720 Output: Urine 400 / 400 Other: # Voids 3 1 Date of Last Bowel Movement 03/01/18 03/01/18 # Bowel Movements 0 Narrative: General: NAD Skin: No visible lesions HEENT: Normal oral mucosa. EOM grossly intact. Neck: No JVD Chest/pulmonary: Decreased breath sounds. No obvious area of congestion. No tachypnea. Cardiovascular: HR ~90bpm; normal rhythm. No murmurs appreciated GI/abdomen: Soft, nontender, bowel sounds present Extremities: Warm bilaterally, no edema. Neuro: grossly normal CN. grossly normal peripheral motor/sensory function Results - Labs CBC & Chem 7: 03/04/18 05:37 03/04/18 05:37 Labs: Laboratory Results - last 24 hr 03/04/18 03/04/18 05:37 05:37 WBC 20.6 H RBC 4.12 L Hgb 10.3 L Hct 33.0 L MCV 80.2 MCH 25.1 L MCHC 31.2 L RDW 17.1 Plt Count 284 MPV 8.2 Sodium 140 Potassium 3.3 L Chloride 106 Carbon Dioxide 22.6 Anion Gap 11 BUN 22 H Creatinine 0.88 Estimated GFR 87 L Random Glucose 116 H Calcium 8.3 L Magnesium 2.1 Total Bilirubin 0.2 AST 68 H ALT 104 H Alkaline Phosphatase 124 H Total Protein 6.2 L Albumin 1.9 L - Imaging Impressions Chest CTA 03/01/18 21:06 CONCLUSION: 1. This study is negative for pulmonary embolism. 2. Dense consolidation in the right lower lobe without air bronchograms and with truncation of the bronchus to the right lower lobe. This suggests an obstructing lesion. Recommend direct visualization with bronchoscopy. 3. Multiple right-sided pleural and subpleural nodules measuring up to 2 cm in size. 4. Scattered areas of subcutaneous and deep soft tissue gas in the low neck and supraclavicular region. Chest X-Ray 03/04/18 06:00 CONCLUSION: No significant change right base consolidation with small to moderate pleural effusion and mild volume loss. Assessment and Plan - Plan Mr. Mendez is a 62 yo M who presented with chest pain and shortness of breath; patient found to have A fib with RVR with signs of sepsis. Concern for pulmonary and brain lesions suspicious for malignancy on imaging: Cardiac Impression: Afib with RVR initially; patient titrated off of amiodarone and is currently rate controlled with Metoprolol per Critical care -Continue daily Metoprolol 25mg BID, PRN metoprolol IV -Continue telemetry -Will plan to initiate anticoagulation following bronchoscopy Respiratory Impression: Right lower lobe density concerning for malignancy. Chronic COPD. Suspect malignancy/metastatic disease w/ post-obstructive pneumonia -Will empirically treat for pneumonia -Zosyn -Continue Hydrocotisone 100mg IV qhrs -Will plan to down-titrate -Pulmonology consulted -Bronchoscopy today -Continue to monitor O2 saturations. vital signs Neuro Occipital lobe lesion concerning for malignancy on CT imaging -Neurosurgery consulted -lesion not easily visible; MRI brain ordered for further characterization ID Impression: Met septic criteria on admission (HR 130, WBC 28.5K) with suspected pulmonary source. Lactic acid 3 initially. s/p IV hydration and pressure support -Continue to monitor CBC/leukocytosis while treating suspected sepsis/pneumonia -Continue monitor blood cultures (negative x3 days) GI Impression: CT imaging with suggestion of hepatomegaly and acalculous cholecystis. Associated LFT's with mild transaminase elevations. Hep C antibody + US gallbladder- thickening of gallbladder wall to 9mm suggestive of disease, increased echogenicity of parenchyma suggestive of fatty infiltration or other liver disease -GI consulted -initial plan for liver biopsy deferred due to bronchoscopy/biopsy. Possibly infection related vs drug induced due to IVDU -monitor labs, supportive care Chronic pain -Continue Oxycodone 30mg q4hrs PRN -Will increase morphine to 6mg IV q 4hrs PRN DVT PPX -SCD's -Will plan to initiate Lovenox after 24hrs from bronchoscopy/biopsy Code Status: Full code
--- NOTE | 2018-03-04 11:07 | P.PNGI ---
Subjective Interval history: Patient denies any nausea or vomiting, no abdominal pain and no dysphasia, complaints are generalized musculoskeletal and chest pain No obvious bleeding but continue to monitor hemoglobin which is currently 10.3. Mild decrease in LFTs normal bilirubin 0.2, AST 68, ALT 104, alkaline phosphatase 124 Patient is pending lung biopsy today, moderate right pleural effusion Afebrile <DominiqueYessenia M - Last Filed: 03/04/18 10:57> Physical Exam Vital signs: Vital Signs 03/03/18 11:55 03/03/18 12:01 03/03/18 16:00 Temperature 97.6 F 97.6 F Pulse Rate 75 82 75 Respiratory Rate 14 22 20 Blood Pressure 140/77 111/80 Pulse Oximetry 99 98 03/03/18 16:02 03/03/18 16:24 03/03/18 20:00 Temperature 97.7 F Pulse Rate 73 90 Respiratory Rate 19 19 17 Blood Pressure 106/63 Pulse Oximetry 95 03/03/18 20:33 03/03/18 20:34 03/03/18 23:37 Temperature Pulse Rate 93 H Respiratory Rate 25 H 12 Blood Pressure Pulse Oximetry 96 03/04/18 00:00 03/04/18 04:00 03/04/18 08:30 Temperature 97.7 F 97.5 F L Pulse Rate 94 H 90 94 H Respiratory Rate 14 12 17 Blood Pressure 116/73 127/74 Pulse Oximetry 94 L 95 96 03/04/18 10:05 Temperature 97.3 F L Pulse Rate 99 H Respiratory Rate 16 Blood Pressure 116/79 Pulse Oximetry 92 L Intake & Output 03/03/18 03/04/18 03/04/18 18:59 06:59 18:59 Intake Total 1969 50 / 50 Output Total 400 / 400 Balance 1969 -350 / -350 Weight 52.4 kg Intake: IV 1250 / 1250 50 / 50 Cordarone Inj 450 MG In D5W Inj 250 / 250 241 ML @ 1 MG/MIN 33.33 mls/hr IV.CONT TITRATE PRN Rx#: [id number] NS Inj 1,000 ML @ 100 mls/hr IV 900 / 900 .CONT .Q10H SUSIE Rx#:[id number] Zosyn 3.375 GM Premix 50 ML @ 100 / 100 50 / 50 100 mls/hr IV.SIG Q6H SUSIE Rx#: [id number] Oral 720 / 720 Output: Urine 400 / 400 Other: # Voids 3 1 Date of Last Bowel Movement 03/01/18 03/01/18 # Bowel Movements 0 - Constitutional mild distress (Thin) - Routine HEENT Exam Head: Present: normocephalic, atraumatic ENT: Present: mucous membranes dry - Routine Neck Exam Present: supple - Routine Cardiovascular Exam Present: tachycardia, irregular rhythm - Routine Abdominal Exam Present: soft (No tenderness on light palpation) - Detailed Neurological Exam: Coma Scale Eye Opening: Spontaneous Verbal Response: Oriented (Mild anxiety) <Yessenia Fox - Last Filed: 03/04/18 10:57> Vital signs: Vital Signs 03/03/18 20:00 03/03/18 20:33 03/03/18 20:34 Temperature 97.7 F Pulse Rate 90 93 H Respiratory Rate 17 25 H Blood Pressure 106/63 Pulse Oximetry 95 96 03/03/18 23:37 03/04/18 00:00 03/04/18 04:00 Temperature 97.7 F 97.5 F L Pulse Rate 94 H 90 Respiratory Rate 12 14 12 Blood Pressure 116/73 127/74 Pulse Oximetry 94 L 95 03/04/18 08:00 03/04/18 08:30 03/04/18 10:05 Temperature 97.3 F L Pulse Rate 105 H 94 H 99 H Respiratory Rate 17 16 Blood Pressure 116/79 Pulse Oximetry 96 92 L 03/04/18 11:43 03/04/18 11:45 03/04/18 12:00 Temperature 97.6 F Pulse Rate 96 H 106 H 95 H Respiratory Rate 16 15 18 Blood Pressure 117/69 117/75 127/78 Pulse Oximetry 99 96 96 03/04/18 12:15 03/04/18 12:20 03/04/18 12:30 Temperature Pulse Rate 93 H 94 H Respiratory Rate 16 15 Blood Pressure 115/67 133/75 Pulse Oximetry 100 99 100 03/04/18 12:43 03/04/18 14:00 03/04/18 15:46 Temperature 97.8 F Pulse Rate 92 H 87 Respiratory Rate 16 16 Blood Pressure 118/69 Pulse Oximetry 100 03/04/18 15:51 Temperature Pulse Rate 91 H Respiratory Rate 20 Blood Pressure Pulse Oximetry Intake & Output 03/03/18 03/04/1818 18:59 06:59 18:59 Intake Total 1969 100 / 100 50 / 50 Output Total 400 / 400 Balance 1969 -300 / -300 50 / 50 Weight 52.4 kg Intake: IV 1250 / 1250 100 / 100 50 / 50 Cordarone Inj 450 MG In D5W Inj 250 / 250 241 ML @ 1 MG/MIN 33.33 mls/hr IV.CONT TITRATE PRN Rx#: [id number] NS Inj 1,000 ML @ 100 mls/hr IV 900 / 900 .CONT .Q10H SUSIE Rx#:[id number] Zosyn 3.375 GM Premix 50 ML @ 100 / 100 100 / 100 50 / 50 100 mls/hr IV.SIG Q6H SUSIE Rx#: [id number] Oral 720 / 720 Output: Urine 400 / 400 Other: # Voids 3 1 Date of Last Bowel Movement 03/01/18 03/01/18 03/01/18 # Bowel Movements 0 <Gonzalo Bland E - Last Filed: 03/04/18 17:34> Results - Labs CBC & Chem 7: 03/04/18 05:37 03/04/18 05:37 Laboratory Results - last 24 hr 03/04/18 03/04/18 05:37 05:37 WBC 20.6 H RBC 4.12 L Hgb 10.3 L Hct 33.0 L MCV 80.2 MCH 25.1 L MCHC 31.2 L RDW 17.1 Plt Count 284 MPV 8.2 Sodium 140 Potassium 3.3 L Chloride 106 Carbon Dioxide 22.6 Anion Gap 11 BUN 22 H Creatinine 0.88 Estimated GFR 87 L Random Glucose 116 H Calcium 8.3 L Magnesium 2.1 Total Bilirubin 0.2 AST 68 H ALT 104 H Alkaline Phosphatase 124 H Total Protein 6.2 L Albumin 1.9 L Microbiology 03/01/18 22:55 Blood - Peripheral Aerobic Blood Culture - Preliminary No growth in 2 days 03/01/18 22:55 Blood - Peripheral Anaerobic Blood Culture - Preliminary No growth in 2 days 03/01/18 23:00 Blood - Peripheral Aerobic Blood Culture - Preliminary No growth in 2 days 03/01/18 23:00 Blood - Peripheral Anaerobic Blood Culture - Preliminary No growth in 2 days - Imaging Impressions Chest X-Ray 03/04/18 06:00 CONCLUSION: No significant change right base consolidation with small to moderate pleural effusion and mild volume loss. <Yessenia Fox - Last Filed: 03/04/18 10:57> - Labs CBC & Chem 7: 03/04/18 05:37 03/04/18 05:37 Laboratory Results - last 24 hr 03/03/18 03/04/18 03/04/18 07:00 05:37 05:37 WBC 20.6 H RBC 4.12 L Hgb 10.3 L Hct 33.0 L MCV 80.2 MCH 25.1 L MCHC 31.2 L RDW 17.1 Plt Count 284 MPV 8.2 Sodium 140 Potassium 3.3 L Chloride 106 Carbon Dioxide 22.6 Anion Gap 11 BUN 22 H Creatinine 0.88 Estimated GFR 87 L Random Glucose 116 H Calcium 8.3 L Magnesium 2.1 Total Bilirubin 0.2 AST 68 H ALT 104 H Alkaline Phosphatase 124 H Total Protein 6.2 L Albumin 1.9 L Anti-Smooth Muscle Ab Negative Microbiology 03/04/18 12:09 Bronchial Washings - Right Fungal Smear - Final No fungal elements seen 03/04/18 11:55 Bronchial - Right Gram Stain - Final 03/01/18 22:55 Blood - Peripheral Aerobic Blood Culture - Preliminary No growth in 3 days 03/01/18 22:55 Blood - Peripheral Anaerobic Blood Culture - Preliminary No growth in 3 days 03/01/18 23:00 Blood - Peripheral Aerobic Blood Culture - Preliminary No growth in 3 days 03/01/18 23:00 Blood - Peripheral Anaerobic Blood Culture - Preliminary No growth in 3 days - Imaging Impressions Chest X-Ray 03/04/18 06:00 CONCLUSION: No significant change right base consolidation with small to moderate pleural effusion and mild volume loss. Chest X-Ray 03/04/18 11:27 CONCLUSION: Right pleural effusion and the right lung base compressive collapse and/or consolidation not significantly changed. <Gonzalo Bland - Last Filed: 03/04/18 17:34> Assessment and Plan (1) Hepatomegaly Status: Acute Code(s): R16.0 - Hepatomegaly, not elsewhere classified - Plan Assessment: - Hepatomegaly on imaging- Pt reports some nausea but states this is secondary to him withdrawing from his home pain medication that he has not had since yesterday. Normally on Roxicodone and Morphine. Denies personal or family history of liver issues. Denies Tylenol and any other OTC medication. No new prescription medication. Denies ETOH use, drug use, history of IV drug use, high risk sexual behaviors. Has 2 tattoos, both done in tattoo parlors. LFTs trending up from yesterday AST-254 ALT-125 Alk phos-199 T bili-0.9 - Possible acalculous cholecystitis seen on CT- Leukocytosis- pt with some epigastric tenderness but denies tenderness to RUQ CT abdomen and pelvis W IV contrast --> Hepatomegaly without focal lesion. Prominent amount of pericholecystic fluid without calcified gallstones suggests possible acalculous cholecystitis. Abnormal appearance to the right lower lung, described on CT pulmonary angiogram report. Bilateral mildly prominent inguinal lymph nodes. Moderately distended stomach. - SOB- respiratory acidosis - A-fib RVR on admission, new, rate controlled (03/03) Pt with no GI complaints. Amiodarone discontinued. Some decrease in LFTs today. Hep C antibody positive, genotype and quant ordered. Liver PADRON pending. Gallbladder US --> No evidence of gallstones or biliary tract obstruction. There is thickening of the gallbladder wall 9 mm suggestive of at least chronic gallbladder disease. Increased echogenicity of the liver parenchyma suggestive of fatty infiltration and or hepatocellular disease 03/04/2018, patient had no GI complaints of abdominal pain, nausea or vomiting,. Pending liver biopsy today. Current labs show hemoglobin 10.3 WBC count 20.6 which is mildly decreased, PT/INR 1.3. Patient remains in atrial fib in the high 90s and low 100s. Getting up for bowel movement this a.m. before going down for his lung biopsy, moderate right pleural effusion noted. Monitoring liver labs and workup. Hepatic profile shows reactive hep C IgG antibody, genotype, RNA PCR pending, ceruloplasmin pending, low albumin 1.9., Alkaline phosphatase 124 mildly decreased normal bilirubin 0.2, AST decreased 68, ALT 104 , alkaline phosphatase 124. Once liver workup is complete will evaluate further needs on an outpatient basis Plan: Diet n.p.o. for today, liver biopsy pending Monitor for any changes and GI symptoms Monitor labs, transfuse as needed Supportive care Liver PADRON pending avoid hepatotoxins Further recommendations based on clinical course and results of above Patient seen per myself and Dr. Bland, note was written on his behalf <Yessenia Fox - Last Filed: 03/04/18 10:57> (1) Hepatomegaly Status: Acute Code(s): R16.0 - Hepatomegaly, not elsewhere classified - Attending Attestation Patient was seen and examined No liver biopsy today in fact patient went for a bronchoscopy and lung biopsy he was found to have a lung mass Liver function tests continue to improve suggesting this may be either related to drug-induced versus infection Continue to monitor labs Continue with current supportive care <Gonzalo Bland - Last Filed: 03/04/18 17:34>
--- NOTE | 2018-03-04 11:32 | P.PNPL ---
Subjective Interval history: 62 YOWM with RLL mass, AF,brain mass breathing better Weaned to RA AF rate controlled Had Bronch Obstructing mass at RLL bronchus Physical Exam Vital signs: Vital Signs 03/03/18 11:55 03/03/18 12:01 03/03/18 16:00 Temperature 97.6 F 97.6 F Pulse Rate 75 82 75 Respiratory Rate 14 22 20 Blood Pressure 140/77 111/80 Pulse Oximetry 99 98 03/03/18 16:02 03/03/18 16:24 03/03/18 20:00 Temperature 97.7 F Pulse Rate 73 90 Respiratory Rate 19 19 17 Blood Pressure 106/63 Pulse Oximetry 95 03/03/18 20:33 03/03/18 20:34 03/03/18 23:37 Temperature Pulse Rate 93 H Respiratory Rate 25 H 12 Blood Pressure Pulse Oximetry 96 03/04/18 00:00 03/04/18 04:00 03/04/18 08:30 Temperature 97.7 F 97.5 F L Pulse Rate 94 H 90 94 H Respiratory Rate 14 12 17 Blood Pressure 116/73 127/74 Pulse Oximetry 94 L 95 96 03/04/18 10:05 Temperature 97.3 F L Pulse Rate 99 H Respiratory Rate 16 Blood Pressure 116/79 Pulse Oximetry 92 L Intake & Output 03/03/18 03/04/18 03/04/18 18:59 06:59 18:59 Intake Total 1969 50 / 50 Output Total 400 / 400 Balance 1969 -350 / -350 Weight 52.4 kg Intake: IV 1250 / 1250 50 / 50 Cordarone Inj 450 MG In D5W Inj 250 / 250 241 ML @ 1 MG/MIN 33.33 mls/hr IV.CONT TITRATE PRN Rx#: [id number] NS Inj 1,000 ML @ 100 mls/hr IV 900 / 900 .CONT .Q10H SUSIE Rx#:[id number] Zosyn 3.375 GM Premix 50 ML @ 100 / 100 50 / 50 100 mls/hr IV.SIG Q6H SUSIE Rx#: [id number] Oral 720 / 720 Output: Urine 400 / 400 Other: # Voids 3 1 Date of Last Bowel Movement 03/01/18 03/01/18 # Bowel Movements 0 GENERAL: Elderly Wm,NAD SKIN: Warm and dry. HEAD: Normocephalic. EYES: No scleral icterus. No injection or drainage. NECK: Supple, trachea midline. No JVD or lymphadenopathy. CARDIOVASCULAR: Regular rate and rhythm without murmurs, gallops, or rubs. RESPIRATORY: Breath sounds equal bilaterally. No accessory muscle use. GASTROINTESTINAL: Abdomen soft, non-tender, nondistended. MUSCULOSKELETAL: No cyanosis, or edema. BACK: Nontender without obvious deformity. No CVA tenderness. Assessment and Plan - Plan IMPRESSION: 1. Right lower lobe density with obstruction in the right lower lobe. Need to rule out endobronchial lesion. 2. Weight loss. 3. Chronic obstructive pulmonary disease. 4. Nicotine use 5. Occipital lobe lesion. 5. Possible cholecystitis. 6. Leukocytosis. PLAN: Post Bronch CXr Supplement 02 CheckBronch results
[2018-03-04] MEDS ORDERED: fentaNYL Citrate Inj 100 MCG/2 ML Ampul ONE (11:51)
[2018-03-04] MEDS ORDERED: *morphine SULFATE 10 MG/ML PERIprocedure ONLY ONE (11:51)
--- NOTE | 2018-03-04 12:33 | MP ---
cc: Christopher Barajas MD DATE OF OPERATION: 03/03/2018 PROCEDURE PERFORMED: Bronchoscopy. PREOPERATIVE DIAGNOSIS: Lung mass. POSTOPERATIVE DIAGNOSIS: Obstructing lesion at the right lower lobe. DESCRIPTION OF PROCEDURE: Informed consent was obtained from the patient, procedure and the complications, including complication of anesthesia, pneumothorax requiring chest tube, bleeding complication, injury to the blood vessels, lungs, nerves, arrhythmia, hypoxia were explained. He consented for the procedure. Therefore, the patient was brought to the endoscopy suite and under general anesthesia, endotracheal tube was placed by anesthesiologist. Bronchoscopy was done through endotracheal tube. Main mecca is sharp. Bronchoscope was advanced to the left lung. Left upper, lingular and lower lobe were visualized. Small amount of mucus was suctioned. No endobronchial lesion was seen. Then, bronchoscope was directed up to the right lung. Thick mucus was suctioned from the right lung. After suctioning the mucus, airways were inspected. Right upper lobe was normal. Right lower lobe shows an obstructing mass, which bleeds easily. Right lower lobe washings, brushings and biopsies were done. He had bleeding, which was controlled with cold saline and epinephrine lavaging. He tolerated the procedure well. Biopsy sent for pathology. Brushing is sent for cytology. Washing is sent for cytology. Routine culture, AFB, fungal cultures. He tolerated the procedure well. Postprocedure chest x-ray is ordered to rule out pneumothorax. MD ANGELES Caro/SANDIP , 11:30 AM , 12:32 PM KATELYN
[2018-03-04 12:38] LABS: Smooth Muscle Total Auto Abs Negative (Negative)
--- NOTE | 2018-03-04 13:07 | XR ---
EXAM DATE: 03/04/2018 12:19 PM EDT AGE/SEX: 62 years / Male INDICATIONS: Post op. CLINICAL DATA: This is the patient's subsequent encounter. Patient reports that signs and symptoms h ave been present for 1 day and indicates a pain score of 4/10. MEDICAL/SURGICAL HISTORY: . Edema. . Bone marrow transplant. COMPARISON: [facility] [place], CHEST 1V SINGLE AP, 03/04/2018. . FINDINGS: Moderately sized right pleural effusion is present with right lung base consolidation and/or compress garrett collapse. The left lung is clear. CONCLUSION: Right pleural effusion and the right lung base compressive collapse and/or consolidation not signific antly changed. Electronically signed by: Sumanth Matos MD 03/04/2018 1:06 PM EDT
[2018-03-04] MEDS: Pantoprazole Inj 40 MG Vial IV.PUSH SCH (13:47)
[2018-03-04] MEDS: Metoprolol Tartrate 25 MG Tablet PO SCH ×2 (13:48→21:29)
[2018-03-04] MEDS: Senna/Docusate Sodium 8.6/50 MG Tablet PO SCH ×2 (13:48→21:29)
[2018-03-04] MEDS: Docusate Sodium 100 MG Capsule PO SCH ×2 (13:48→21:29)
--- NOTE | 2018-03-04 14:15 | P.DIET ---
Nutritional Evaluation Type of nutrition evaluation: initial Nutrition screening: Weight Loss > 10 lbs Subjective Subjective Comments: Pt reports a 50-60 lb unintentional weight loss over the past 6 months. Objective - Diagnosis Afib w/RVR, Hypotension, Sepsis - Objective Body Weight Used for Calculations: Actual (52.8kg) Energy Needs - Lower Range (kCal/kg): 40 Energy Needs - Upper Range (kCal/kg): 45 Lower Limit kCal/kg (kCals): 2,112 Upper Limit kCal/kg (kCals): 2,376 Lower Limit Protein Factor (Grams per Kg): 1.2 Upper Limit Protein Factor (Grams per Kg): 1.8 Lower Protein Needs (Protein): 64 Upper Protein Needs (Protein): 95 Dietitian Reviewed in Medical Record: Current diet, Curent medications, Intake & Output, Labs, Medical history Diet Order: NPO Objective Comments: PMH: Adema, Back Pain, Bone Marrow Transplant Infection Labs include; K+ 3.3, elevated LFT's, Iron 10 Assessment Assessment: Pt at nutritional risk r/t current clinical status. Pt reports 50-60 lb wt loss over past 6 months, he is only at 82% of his ideal body weight. Noted lung and liver biopsies pending. Nutritional needs as stated above. PO intake adequacy has not yet been established. Will provide pt with Enlive tid, each contain 350 kcals and 20 gms protein. Will monitor po intake, clinical course. Recommendations: Pt NPO, Liver and Lung Biopsies pending Enlive tid Dietitian to Monitor: Lab values, Intake & Output, Diet tolerance, Weight change , PO Intake, Medical course
--- NOTE | 2018-03-04 17:57 | P.PNNS ---
Subjective Interval history: Rey is a 62-year-old male who presented to ER with right-sided chest pain were on for a few days with some shortness of breath. He has not been feeling well for the last 2 weeks with progressive generalized weakness. He lost weight about 50-60 pounds in the last 6 months which is unintentional. He denies any nausea vomiting or diarrhea. Denies any melena or rectal bleeding. He was found to be in A. fib with RVR on arrival in the ER. He received IV Lopressor and subsequently dropped his blood pressure and she was started on Levophed for pressor support. After obtaining blood cultures patient was started on IV Zosyn. He underwent imaging studies which revealed hepatomegaly, right lower lobe consolidation and a question of fluid around the gallbladder suggesting cholecystitis. Head CT revealed a questionable lesion in the occipital lobe. Patient was accepted for admission by critical care medicine service. Neurosurgery consultation was requested 03/04. Alert and awake. MRI showed a metastases Physical Exam Vital signs: Vital Signs 03/03/18 20:00 03/03/18 20:33 03/03/18 20:34 Temperature 97.7 F Pulse Rate 90 93 H Respiratory Rate 17 25 H Blood Pressure 106/63 Pulse Oximetry 95 96 03/03/18 23:37 03/04/18 00:00 03/04/18 04:00 Temperature 97.7 F 97.5 F L Pulse Rate 94 H 90 Respiratory Rate 12 14 12 Blood Pressure 116/73 127/74 Pulse Oximetry 94 L 95 03/04/18 08:00 03/04/18 08:30 03/04/18 10:05 Temperature 97.3 F L Pulse Rate 105 H 94 H 99 H Respiratory Rate 17 16 Blood Pressure 116/79 Pulse Oximetry 96 92 L 03/04/18 11:43 03/04/18 11:45 03/04/18 12:00 Temperature 97.6 F Pulse Rate 96 H 106 H 95 H Respiratory Rate 16 15 18 Blood Pressure 117/69 117/75 127/78 Pulse Oximetry 99 96 96 03/04/18 12:15 03/04/18 12:20 03/04/18 12:30 Temperature Pulse Rate 93 H 94 H Respiratory Rate 16 15 Blood Pressure 115/67 133/75 Pulse Oximetry 100 99 100 03/04/18 12:43 03/04/18 14:00 03/04/18 15:46 Temperature 97.8 F Pulse Rate 92 H 87 Respiratory Rate 16 16 Blood Pressure 118/69 Pulse Oximetry 100 03/04/18 15:51 Temperature Pulse Rate 91 H Respiratory Rate 20 Blood Pressure Pulse Oximetry Intake & Output 03/03/18 03/04/18 03/04/18 18:59 06:59 18:59 Intake Total 1969 100 / 100 50 / 50 Output Total 400 / 400 Balance 1969 -300 / -300 50 / 50 Weight 52.4 kg Intake: IV 1250 / 1250 100 / 100 50 / 50 Cordarone Inj 450 MG In D5W Inj 250 / 250 241 ML @ 1 MG/MIN 33.33 mls/hr IV.CONT TITRATE PRN Rx#: [id number] NS Inj 1,000 ML @ 100 mls/hr IV 900 / 900 .CONT .Q10H SUSIE Rx#:[id number] Zosyn 3.375 GM Premix 50 ML @ 100 / 100 100 / 100 50 / 50 100 mls/hr IV.SIG Q6H SUSIE Rx#: [id number] Oral 720 / 720 Output: Urine 400 / 400 Other: # Voids 3 1 Date of Last Bowel Movement 03/01/18 03/01/18 03/01/18 # Bowel Movements 0 Narrative: alert, awake. Comfortable, in no acute distress. Speech is fluent. Cranial nerve examination: pupils to be equal, round and reactive to light. Extra-ocular movements are intact. Facial motor and sensory function are normal and symmetrical. Gross hearing appears intact. Sternocleidomastoid and trapezius muscles are symmetrical. Other cranial nerves are intact. Neck is soft and supple with a good range of motion without pain. Muscle strength is normal in all muscle groups of both upper and lower extremities. Sensory examination is intact to light touch and pin prick in both the upper and lower extremities. Deep tendon reflexes are symmetrical in both upper and lower extremities. There is a bilateral plantar flexion response. Cerebellar examination is unremarkable, without deficits. Lungs are clear Heart regular rhythm is regular rate Skin warm and dry HEENT/Neuro: No pallor or icterus, tongue moist, MARIA ELENA, Awake alert oriented 3 , nonfocal grossly, moving all 4 extremities Neck: No JVD Chest/pulmonary: Air entry decreased over right base. Scattered rhonchi, no wheezing Cardiovascular: S1-S2 regular no gallop or murmur GI/abdomen: Soft, nontender, bowel sounds present Extremities: Warm bilaterally, no edema. Healed incision scar noted over right leg Assessment and Plan - Plan 62-year-old male with: A. fib with RVR Hypotension Leukocytosis with suspected sepsis Possible right lower lobe pneumonia Possible cholecystitis Hepatomegaly Occipital lobe lesion Unintentional weight loss Suspected underlying malignancy I reviewed his radiological studies including Venous Doppler Study 03/01/18 20:39 CONCLUSION: 1. The study is negative for bilateral lower extremity deep venous thrombosis. Chest CTA 03/01/18 21:06 CONCLUSION: 1. This study is negative for pulmonary embolism. 2. Dense consolidation in the right lower lobe without air bronchograms and with truncation of the bronchus to the right lower lobe. This suggests an obstructing lesion. Recommend direct visualization with bronchoscopy. 3. Multiple right-sided pleural and subpleural nodules measuring up to 2 cm in size. 4. Scattered areas of subcutaneous and deep soft tissue gas in the low neck and supraclavicular region. Abdomen/Pelvis CT 03/01/18 21:29 CONCLUSION: 1. Hepatomegaly without focal lesion. 2. Prominent amount of pericholecystic fluid without calcified gallstones suggests possible acalculous cholecystitis. 3. Abnormal appearance to the right lower lung, described on CT pulmonary angiogram report. 4. Bilateral mildly prominent inguinal lymph nodes. 5. Moderately distended stomach. Head CT 03/01/18 21:38 CONCLUSION: 1. Findings suggest a 6 mm mass in the left occipital white matter. Recommend further characterization using MRI with and without contrast. Gallbladder Ultrasound 03/02/18 00:00 CONCLUSION: 1. No evidence of gallstones or biliary tract obstruction. 2. There is thickening of the gallbladder wall 9 mm suggestive of at least chronic gallbladder disease. 3. Increased echogenicity of the liver parenchyma suggestive of fatty infiltration and/or hepatocellular disease. Head MRI 03/02/18 00:00 CONCLUSION: 1. The examination demonstrates a 0.8 x 0.8 x 0.8 mm homogeneously enhancing mass in the subependymal region of the posterior horn of the left lateral ventricle. Primary consideration would be a focal metastatic lesion. 2. There are some scattered punctate areas of abnormal restricted diffusion signal in the watershed distribution posteriorly on the left. 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 Chest X-Ray 03/03/18 06:00 CONCLUSION: Right basilar lung consolidation and pleural effusion. Findings similar to March 01. Left lung remains clear. MRI brain was reviewed. recommend radiation oncology consultation. He is not a surgical candidate due to the large pulmonary mass and poor medical condition Pulmonary mass evaluation in progress. Consultation to a net sorter has been placed Pulmonary: Continue supplemental O2, bronchodilators as needed. Pulmonary consult for further evaluation of right lower lobe consolidation. GI/liver: Hepatomegaly fluid around gallbladder. Will obtain GI consult for further evaluation. Daily PT and OT Renal: Continue to monitor closely urine output, BUN and creatinine Endocrine: Continue to Monitor serial Acu checks and SSI as needed in detail ID continue to monitor for signs of infection Continue Protonix for stress ulcer prophylaxis Continue Steven hose and SCD's for DVT prophylaxis Further recommendations will be provided depending on the patient's clinical evaluation and follow up studies. Caprini VTE Risk Assessment Caprini VTE Risk Assessment: Moderate/High Risk (score >= 2) Caprini Risk Assessment Model: Point Value = 1 Point Value = 2 Point Value = 3 Point Value = 5 Age 41-60 Minor surgery BMI > 25 kg/m2 Swollen legs Varicose veins or History of unexplained or recurrent spontaneous Oral contraceptives or hormone replacement Sepsis (< 1 month) Serious lung disease, including pneumonia (< 1 month) Abnormal pulmonary function Acute myocardial infarction Congestive heart failure (< 1 month) History of inflammatory bowel disease Medical patient at bed rest Age 61-74 Arthroscopic surgery Major open surgery (> 45 min) Laparoscopic surgery (> 45 min) Malignancy Confined to bed (> 72 hours) Immobilizing plaster cast Central venous access Age >= 75 History of VTE Family history of VTE Factor V Leiden Prothrombin [id number] Lupus anticoagulant Anticardiolipin antibodies Elevated serum homocysteine Heparin-induced thrombocytopenia Other congenital or acquired thrombophilia Stroke (< 1 month) Elective arthroplasty Hip, pelvis, or leg fracture Acute spinal cord injury (< 1 month) Prophylaxis Regimen: Total Risk Factor Score Risk Level Prophylaxis Regimen 0-1 Low Early ambulation 2 Moderate Order ONE of the following: *Sequential Compression Device (SCD) *Heparin 5000 units SQ BID 3-4 Higher Order ONE of the following medications: *Heparin 5000 units SQ TID *Enoxaparin/Lovenox 40 mg SQ daily (WT < 150 kg, CrCl > 30 mL/min) *Enoxaparin/Lovenox 30 mg SQ daily (WT < 150 kg, CrCl > 10-29 mL/min) *Enoxaparin/Lovenox 30 mg SQ BID (WT < 150 kg, CrCl > 30 mL/min) AND/OR *Sequential Compression Device (SCD) 5 or more Highest Order ONE of the following medications: *Heparin 5000 units SQ TID (Preferred with Epidurals) *Enoxaparin/Lovenox 40 mg SQ daily (WT < 150 kg, CrCl > 30 mL/min) *Enoxaparin/Lovenox 30 mg SQ daily (WT < 150 kg, CrCl > 10-29 mL/min) *Enoxaparin/Lovenox 30 mg SQ BID (WT < 150 kg, CrCl > 30 mL/min) AND *Sequential Compression Device (SCD) Head CT 03/01/18 21:38 CONCLUSION: 1. Findings suggest a 6 mm mass in the left occipital white matter. Recommend further characterization using MRI with and without contrast. I do not even see the mass. Reciommend an MRI brain NORBERTO Cardiovascular: Aggressive fluid resuscitation, Levophed for pressor support. Will add low-dose vasopressin. On amiodarone gtt. for A. fib. Obtain 2D echo. Follow lactic acid Pulmonary: Supplemental O2, bronchodilators as needed. Pulmonary consult for further evaluation of right lower lobe consolidation. GI/liver: Hepatomegaly fluid around gallbladder. Will obtain GI consult for further evaluation. Daily PT and OT Renal: Continue to monitor closely urine output, BUN and creatinine Endocrine: Continue to Monitor serial Acu checks and SSI as needed in detail ID continue to monitor for signs of infection Continue Protonix for stress ulcer prophylaxis Continue Steven hose and SCD's for DVT prophylaxis Further recommendations will be provided depending on the patient's clinical evaluation and follow up studies. Caprini VTE Risk Assessment Caprini VTE Risk Assessment: Moderate/High Risk (score >= 2) Caprini Risk Assessment Model: Point Value = 1 Point Value = 2 Point Value = 3 Point Value = 5 Age 41-60 Minor surgery BMI > 25 kg/m2 Swollen legs Varicose veins or History of unexplained or recurrent spontaneous Oral contraceptives or hormone replacement Sepsis (< 1 month) Serious lung disease, including pneumonia (< 1 month) Abnormal pulmonary function Acute myocardial infarction Congestive heart failure (< 1 month) History of inflammatory bowel disease Medical patient at bed rest Age 61-74 Arthroscopic surgery Major open surgery (> 45 min) Laparoscopic surgery (> 45 min) Malignancy Confined to bed (> 72 hours) Immobilizing plaster cast Central venous access Age >= 75 History of VTE Family history of VTE Factor V Leiden Prothrombin [id number] Lupus anticoagulant Anticardiolipin antibodies Elevated serum homocysteine Heparin-induced thrombocytopenia Other congenital or acquired thrombophilia Stroke (< 1 month) Elective arthroplasty Hip, pelvis, or leg fracture Acute spinal cord injury (< 1 month) Prophylaxis Regimen: Total Risk Factor Score Risk Level Prophylaxis Regimen 0-1 Low Early ambulation 2 Moderate Order ONE of the following: *Sequential Compression Device (SCD) *Heparin 5000 units SQ BID 3-4 Higher Order ONE of the following medications: *Heparin 5000 units SQ TID *Enoxaparin/Lovenox 40 mg SQ daily (WT < 150 kg, CrCl > 30 mL/min) *Enoxaparin/Lovenox 30 mg SQ daily (WT < 150 kg, CrCl > 10-29 mL/min) *Enoxaparin/Lovenox 30 mg SQ BID (WT < 150 kg, CrCl > 30 mL/min) AND/OR *Sequential Compression Device (SCD) 5 or more Highest Order ONE of the following medications: *Heparin 5000 units SQ TID (Preferred with Epidurals) *Enoxaparin/Lovenox 40 mg SQ daily (WT < 150 kg, CrCl > 30 mL/min) *Enoxaparin/Lovenox 30 mg SQ daily (WT < 150 kg, CrCl > 10-29 mL/min) *Enoxaparin/Lovenox 30 mg SQ BID (WT < 150 kg, CrCl > 30 mL/min) AND *Sequential Compression Device (SCD)
[2018-03-05] MEDS: Piperacil/Tazo 3.375 GM Premix 50 ML IV.SIG SCH ×4 (03:50→23:52)
[2018-03-05] MEDS: Chlorhexidine Gluconate 2% 1 Pack (2 Cloths) TOPICAL SCH (03:51)
[2018-03-05] MEDS: Morphine Inj 4 MG/ML Vial IV.PUSH PRN ×4 (04:33→21:01)
[2018-03-05] MEDS: Hydrocortisone Sod Succinate 100 MG Vial IV.PUSH SCH ×3 (05:40→23:52)
[2018-03-05] MEDS: Docusate Sodium 100 MG Capsule PO SCH ×2 (08:05→20:59)
[2018-03-05] MEDS: Metoprolol Tartrate 25 MG Tablet PO SCH ×2 (08:05→20:59)
[2018-03-05] MEDS: Pantoprazole Inj 40 MG Vial IV.PUSH SCH (08:05)
[2018-03-05] MEDS: Senna/Docusate Sodium 8.6/50 MG Tablet PO SCH ×2 (08:06→20:59)
[2018-03-05 09:02] LABS: Hematocrit 33.3 % (39.0-51.0); Hemoglobin 10.6 gm/dL (13.0-17.0); Lymph # (Auto) 0.6 th/mm3 (1.0-4.8); Lymph % (Auto) 4.5 % (9.0-44.0); Mean Corpuscular Hemoglobin 25.6 pg (27.0-34.0); Mean Corpuscular Volume 80.3 fL (80.0-100.0); Mono # (Auto) 0.3 th/mm3 (0.0-0.9); Mono % (Auto) 2.6 % (0.0-8.0); Neut % (Auto) 92.9 % (16.0-70.0); Platelet Count 313 th/mm3 (150-450); Red Blood Count 4.15 mil/mm3 (4.50-5.90); Red Cell Distribution Width 17.3 % (11.6-17.2); White Blood Count 12.9 th/mm3 (4.0-11.0)
[2018-03-05 09:29] LABS: Alanine Aminotransferase 84 U/L (12-78); Albumin 1.8 g/dL (3.4-5.0); Anion Gap 9 meq/L (5-15); Aspartate Aminotransferase 38 U/L (15-37); Blood Urea Nitrogen 23 mg/dL (7-18); Calcium 8.5 mg/dL (8.5-10.1); Carbon Dioxide 25.4 meq/L (21.0-32.0); Chloride 107 meq/L (98-107); Glomerular Filtration Rate 83 mL/min (>89); Glucose,Random 101 mg/dL (74-106); Potassium 4.2 meq/L (3.5-5.1); Sodium 141 meq/L (136-145)
[2018-03-05 09:33] LABS: Alkaline Phosphatase 113 U/L (45-117); Total Protein 6.4 g/dL (6.4-8.2)
--- NOTE | 2018-03-05 13:27 | P.PNPL ---
Subjective Interval history: 62 YOWM with RLL mass, AF,brain mass breathing better Weaned to RA AF rate controlled Had Bronch Obstructing mass at RLL bronchus had small amount of hemoptysis Physical Exam Vital signs: Vital Signs 03/04/18 14:00 03/04/18 15:46 03/04/18 15:51 Temperature Pulse Rate 87 91 H Respiratory Rate 16 20 Blood Pressure Pulse Oximetry 03/04/18 16:00 03/04/18 20:00 03/04/18 21:03 Temperature 98.7 F 98.6 F Pulse Rate 90 105 H 83 Respiratory Rate 20 15 18 Blood Pressure 119/80 118/75 Pulse Oximetry 100 99 03/05/18 00:00 03/05/18 02:45 03/05/18 03:10 Temperature 97.3 F L Pulse Rate 98 H 99 H Respiratory Rate 13 16 16 Blood Pressure 132/69 142/94 H Pulse Oximetry 03/05/18 04:00 03/05/18 04:46 03/05/18 05:00 Temperature Pulse Rate 98 H 96 H Respiratory Rate 16 Blood Pressure Pulse Oximetry 03/05/18 06:00 03/05/18 07:00 03/05/18 08:00 Temperature 98 F Pulse Rate 95 H 90 90 Respiratory Rate 17 Blood Pressure 144/102 H Pulse Oximetry 03/05/18 08:58 03/05/18 09:00 03/05/18 10:00 Temperature Pulse Rate 69 98 H 91 H Respiratory Rate 18 Blood Pressure Pulse Oximetry 03/05/18 12:19 Temperature Pulse Rate Respiratory Rate 20 Blood Pressure Pulse Oximetry Intake & Output 03/04/18 03/05/18 03/05/18 18:59 06:59 18:59 Intake Total 470 / 470 390 / 390 50 / 50 Output Total 250 / 250 Balance 470 / 470 140 / 140 50 / 50 Weight 52.4 kg Intake: IV 50 / 50 150 / 150 50 / 50 Zosyn 3.375 GM Premix 50 ML @ 50 / 50 150 / 150 50 / 50 100 mls/hr IV.SIG Q6H SUSIE Rx#: [id number] Oral 420 / 420 240 / 240 Output: Urine 250 / 250 Other: # Voids 2 Date of Last Bowel Movement 03/01/18 03/01/18 GENERAL: MBMN WM,NAD SKIN: Warm and dry. HEAD: Normocephalic. EYES: No scleral icterus. No injection or drainage. NECK: Supple, trachea midline. No JVD or lymphadenopathy. CARDIOVASCULAR: Regular rate and rhythm without murmurs, gallops, or rubs. RESPIRATORY: Breath sounds equal bilaterally. No accessory muscle use. GASTROINTESTINAL: Abdomen soft, non-tender, nondistended. MUSCULOSKELETAL: No cyanosis, or edema. BACK: Nontender without obvious deformity. No CVA tenderness. Assessment and Plan - Plan IMPRESSION: 1. Right lower lobe density with obstruction in the right lower lobe. Need to rule out endobronchial lesion. 2. Weight loss. 3. Chronic obstructive pulmonary disease. 4. Nicotine use 5. Occipital lobe lesion. 5. Possible cholecystitis. 6. Leukocytosis. PLAN: Post Bronch CXr Supplement 02 CheckBronch results DW Pt bronch findings
[2018-03-05 15:52] LABS: Ceruloplasmin 37 mg/dL (18-36)
--- NOTE | 2018-03-05 17:12 | P.PN ---
Physical Exam Vital signs: Vital Signs 03/04/18 20:00 03/04/18 21:03 03/05/18 00:00 Temperature 98.6 F Pulse Rate 105 H 83 98 H Respiratory Rate 15 18 13 Blood Pressure 118/75 132/69 Pulse Oximetry 99 03/05/18 02:45 03/05/18 03:10 03/05/18 04:00 Temperature 97.3 F L Pulse Rate 99 H 98 H Respiratory Rate 16 16 Blood Pressure 142/94 H Pulse Oximetry 03/05/18 04:46 03/05/18 05:00 03/05/18 06:00 Temperature Pulse Rate 96 H 95 H Respiratory Rate 16 Blood Pressure Pulse Oximetry 03/05/18 07:00 03/05/18 08:00 03/05/18 08:58 Temperature 98 F Pulse Rate 90 90 69 Respiratory Rate 17 18 Blood Pressure 144/102 H Pulse Oximetry 03/05/18 09:00 03/05/18 10:00 03/05/18 11:00 Temperature Pulse Rate 98 H 91 H 101 H Respiratory Rate Blood Pressure Pulse Oximetry 03/05/18 12:00 03/05/18 12:19 03/05/18 13:00 Temperature 98.1 F Pulse Rate 97 H 88 Respiratory Rate 18 20 Blood Pressure 147/89 H Pulse Oximetry 03/05/18 14:00 03/05/18 15:00 03/05/18 15:02 Temperature Pulse Rate 108 H 114 H Respiratory Rate 18 Blood Pressure Pulse Oximetry 03/05/18 16:00 03/05/18 16:34 Temperature 98 F Pulse Rate 107 H 71 Respiratory Rate 17 18 Blood Pressure 114/92 H Pulse Oximetry Intake & Output 03/04/18 03/05/18 03/05/18 18:59 06:59 18:59 Intake Total 470 / 470 390 / 390 50 / 50 Output Total 250 / 250 Balance 470 / 470 140 / 140 50 / 50 Weight 52.4 kg Intake: IV 50 / 50 150 / 150 50 / 50 Zosyn 3.375 GM Premix 50 ML @ 50 / 50 150 / 150 50 / 50 100 mls/hr IV.SIG Q6H SUSIE Rx#: [id number] Oral 420 / 420 240 / 240 Output: Urine 250 / 250 Other: # Voids 2 Date of Last Bowel Movement 03/01/18 03/01/18 Narrative: Subjective Heart rate is better controlled. Denies any chest pain at this time. Does not feel palpitations. Shortness of breath. No cough. Feels a little bit improved. Physical exam General: Patient is a very pleasant 62-year-old male, appears in NAD Respiratory: Decreased breath sounds. No obvious area of congestion. No tachypnea. Cardiovascular: normal rate and rhythm. No murmurs appreciated GI/abdomen: Soft, nontender, bowel sounds present Extremities: Warm bilaterally, no edema. Neuro: grossly normal CN. No sensory deficit. Normal speech. Motor function grossly normal. Assessment and Plan Mr. Mendez is a 62 yo M who presented with chest pain and shortness of breath; patient found to have A fib with RVR with signs of sepsis. Concern for pulmonary and brain lesions suspicious for malignancy on imaging: Cardiac Impression: Afib with RVR initially; patient titrated off of amiodarone and is currently rate controlled with Metoprolol per Critical care -Continue daily Metoprolol 25mg BID, PRN metoprolol IV -Continue telemetry -Initiate anticoagulation following bronchoscopy when cleared by pulm and gi Respiratory Impression: Right lower lobe density concerning for malignancy. Chronic COPD. Suspect malignancy/metastatic disease w/ post-obstructive pneumonia -Will empirically treat for pneumonia -Zosyn -Continue Hydrocotisone 100mg IV qhrs -Will plan to down-titrate -Pulmonology consulted -Bronchoscopy today -Continue to monitor O2 saturations. vital signs Neuro Occipital lobe lesion concerning for malignancy on CT imaging -Neurosurgery consulted -lesion not easily visible; MRI brain ordered for further characterization ID Impression: Met septic criteria on admission (HR 130, WBC 28.5K) with suspected pulmonary source. Lactic acid 3 initially. s/p IV hydration and pressure support -Continue to monitor CBC/leukocytosis while treating suspected sepsis/pneumonia -Continue monitor blood cultures (negative x3 days) GI Impression: CT imaging with suggestion of hepatomegaly and acalculous cholecystis. Associated LFT's with mild transaminase elevations. Hep C antibody + US gallbladder- thickening of gallbladder wall to 9mm suggestive of disease, increased echogenicity of parenchyma suggestive of fatty infiltration or other liver disease -GI consulted -initial plan for liver biopsy deferred due to bronchoscopy/biopsy. Possibly infection related vs drug induced due to IVDU -monitor labs, supportive care Chronic pain -Continue Oxycodone 30mg q4hrs PRN -Will increase morphine to 6mg IV q 4hrs PRN DVT PPX -SCD's -Will plan to initiate Lovenox after 24hrs from bronchoscopy/biopsy Code Status: Full code DC plan Awaiting for BAL and lung biopsy results. Pending improvement and clearance by consultants Results - Labs CBC & Chem 7: 03/05/18 08:39 03/05/18 08:39 Laboratory Results - last 24 hr 03/03/18 03/05/18 03/05/18 07:00 08:39 08:39 WBC 12.9 H RBC 4.15 L Hgb 10.6 L Hct 33.3 L MCV 80.3 MCH 25.6 L MCHC 32.0 RDW 17.3 H Plt Count 313 MPV 8.0 Neut % (Auto) 92.9 H Lymph % (Auto) 4.5 L Piatt % (Auto) 2.6 Eos % (Auto) 0.0 Baso % (Auto) 0.0 Neut # (Auto) 12.0 H Lymph # (Auto) 0.6 L Piatt # (Auto) 0.3 Eos # (Auto) 0.0 Baso # (Auto) 0.0 WBC Differential . Differential Comment Auto diff final Sodium 141 Potassium 4.2 D Chloride 107 Carbon Dioxide 25.4 Anion Gap 9 BUN 23 H Creatinine 0.92 Estimated GFR 83 L Random Glucose 101 Calcium 8.5 Total Bilirubin 0.2 AST 38 H ALT 84 H Alkaline Phosphatase 113 Total Protein 6.4 Albumin 1.8 L Ceruloplasmin 37 H Microbiology 03/04/18 11:55 Bronchial - Right Gram Stain - Final 03/04/18 11:55 Bronchial - Right Bronchial Culture - Preliminary No growth in 24 hours 03/01/18 22:55 Blood - Peripheral Aerobic Blood Culture - Preliminary No growth in 4 days 03/01/18 22:55 Blood - Peripheral Anaerobic Blood Culture - Preliminary No growth in 4 days 03/01/18 23:00 Blood - Peripheral Aerobic Blood Culture - Preliminary No growth in 4 days 03/01/18 23:00 Blood - Peripheral Anaerobic Blood Culture - Preliminary No growth in 4 days 03/04/18 12:09 Bronchial Washings - Right Fungal Smear - Final No fungal elements seen
--- NOTE | 2018-03-05 17:24 | P.PNGI ---
Subjective Interval history: Patient up walking in the room feeling tired and fatigued but otherwise doing well Physical Exam Vital signs: Vital Signs 03/04/18 20:00 03/04/18 21:03 03/05/18 00:00 Temperature 98.6 F Pulse Rate 105 H 83 98 H Respiratory Rate 15 18 13 Blood Pressure 118/75 132/69 Pulse Oximetry 99 03/05/18 02:45 03/05/18 03:10 03/05/18 04:00 Temperature 97.3 F L Pulse Rate 99 H 98 H Respiratory Rate 16 16 Blood Pressure 142/94 H Pulse Oximetry 03/05/18 04:46 03/05/18 05:00 03/05/18 06:00 Temperature Pulse Rate 96 H 95 H Respiratory Rate 16 Blood Pressure Pulse Oximetry 03/05/18 07:00 03/05/18 08:00 03/05/18 08:58 Temperature 98 F Pulse Rate 90 90 69 Respiratory Rate 17 18 Blood Pressure 144/102 H Pulse Oximetry 03/05/18 09:00 03/05/18 10:00 03/05/18 11:00 Temperature Pulse Rate 98 H 91 H 101 H Respiratory Rate Blood Pressure Pulse Oximetry 03/05/18 12:00 03/05/18 12:19 03/05/18 13:00 Temperature 98.1 F Pulse Rate 97 H 88 Respiratory Rate 18 20 Blood Pressure 147/89 H Pulse Oximetry 03/05/18 14:00 03/05/18 15:00 03/05/18 15:02 Temperature Pulse Rate 108 H 114 H Respiratory Rate 18 Blood Pressure Pulse Oximetry 03/05/18 16:00 03/05/18 16:34 Temperature 98 F Pulse Rate 107 H 71 Respiratory Rate 17 18 Blood Pressure 114/92 H Pulse Oximetry Intake & Output 03/04/18 03/05/18 03/05/18 18:59 06:59 18:59 Intake Total 470 / 470 390 / 390 50 / 50 Output Total 250 / 250 Balance 470 / 470 140 / 140 50 / 50 Weight 52.4 kg Intake: IV 50 / 50 150 / 150 50 / 50 Zosyn 3.375 GM Premix 50 ML @ 50 / 50 150 / 150 50 / 50 100 mls/hr IV.SIG Q6H [facility] Rx#: [id number] Oral 420 / 420 240 / 240 Output: Urine 250 / 250 Other: # Voids 2 Date of Last Bowel Movement 03/01/18 03/01/18 - Constitutional no acute distress - Routine HEENT Exam Head: Present: normocephalic, atraumatic - Routine Neck Exam Present: supple - Routine Respiratory Exam Present: decreased breath sounds - Routine Cardiovascular Exam Present: irregularly irregular - Routine Abdominal Exam Present: soft, normoactive bowel sounds - Routine Psychiatric Exam Present: normal affect Results - Labs CBC & Chem 7: 03/05/18 08:39 03/05/18 08:39 Laboratory Results - last 24 hr 03/03/18 03/05/18 03/05/18 07:00 08:39 08:39 WBC 12.9 H RBC 4.15 L Hgb 10.6 L Hct 33.3 L MCV 80.3 MCH 25.6 L MCHC 32.0 RDW 17.3 H Plt Count 313 MPV 8.0 Neut % (Auto) 92.9 H Lymph % (Auto) 4.5 L [place] % (Auto) 2.6 Eos % (Auto) 0.0 Baso % (Auto) 0.0 Neut # (Auto) 12.0 H Lymph # (Auto) 0.6 L [place] # (Auto) 0.3 Eos # (Auto) 0.0 Baso # (Auto) 0.0 WBC Differential . Differential Comment Auto diff final Sodium 141 Potassium 4.2 D Chloride 107 Carbon Dioxide 25.4 Anion Gap 9 BUN 23 H Creatinine 0.92 Estimated GFR 83 L Random Glucose 101 Calcium 8.5 Total Bilirubin 0.2 AST 38 H ALT 84 H Alkaline Phosphatase 113 Total Protein 6.4 Albumin 1.8 L Ceruloplasmin 37 H Microbiology 03/04/18 11:55 Bronchial - Right Gram Stain - Final 03/04/18 11:55 Bronchial - Right Bronchial Culture - Preliminary No growth in 24 hours 03/01/18 22:55 Blood - Peripheral Aerobic Blood Culture - Preliminary No growth in 4 days 03/01/18 22:55 Blood - Peripheral Anaerobic Blood Culture - Preliminary No growth in 4 days 03/01/18 23:00 Blood - Peripheral Aerobic Blood Culture - Preliminary No growth in 4 days 03/01/18 23:00 Blood - Peripheral Anaerobic Blood Culture - Preliminary No growth in 4 days 03/04/18 12:09 Bronchial Washings - Right Fungal Smear - Final No fungal elements seen Assessment and Plan (1) Hepatomegaly Status: Acute Code(s): R16.0 - Hepatomegaly, not elsewhere classified - Plan Assessment: - Hepatomegaly on imaging- Pt reports some nausea but states this is secondary to him withdrawing from his home pain medication that he has not had since yesterday. Normally on Roxicodone and Morphine. Denies personal or family history of liver issues. Denies Tylenol and any other OTC medication. No new prescription medication. Denies ETOH use, drug use, history of IV drug use, high risk sexual behaviors. Has 2 tattoos, both done in tattoo parlors. LFTs trending up from yesterday AST-254 ALT-125 Alk phos-199 T bili-0.9 - Possible acalculous cholecystitis seen on CT- Leukocytosis- pt with some epigastric tenderness but denies tenderness to RUQ CT abdomen and pelvis W IV contrast --> Hepatomegaly without focal lesion. Prominent amount of pericholecystic fluid without calcified gallstones suggests possible acalculous cholecystitis. Abnormal appearance to the right lower lung, described on CT pulmonary angiogram report. Bilateral mildly prominent inguinal lymph nodes. Moderately distended stomach. - SOB- respiratory acidosis - A-fib RVR on admission, new, rate controlled (03/03) Pt with no GI complaints. Amiodarone discontinued. Some decrease in LFTs today. Hep C antibody positive, genotype and quant ordered. Liver PADRON pending. Gallbladder US --> No evidence of gallstones or biliary tract obstruction. There is thickening of the gallbladder wall 9 mm suggestive of at least chronic gallbladder disease. Increased echogenicity of the liver parenchyma suggestive of fatty infiltration and or hepatocellular disease 03/04/2018, patient had no GI complaints of abdominal pain, nausea or vomiting,. Pending liver biopsy today. Current labs show hemoglobin 10.3 WBC count 20.6 which is mildly decreased, PT/INR 1.3. Patient remains in atrial fib in the high 90s and low 100s. Getting up for bowel movement this a.m. before going down for his lung biopsy, moderate right pleural effusion noted. Monitoring liver labs and workup. Hepatic profile shows reactive hep C IgG antibody, genotype, RNA PCR pending, ceruloplasmin pending, low albumin 1.9., Alkaline phosphatase 124 mildly decreased normal bilirubin 0.2, AST decreased 68, ALT 104 , alkaline phosphatase 124. Once liver workup is complete will evaluate further needs on an outpatient basis 03/05 patient up in about no new complaints Plan: Regular diet LFTs improving suggesting this was secondary to the infectious process Monitor labs, transfuse as needed Supportive care Liver PADRON pending avoid hepatotoxins Further recommendations based on clinical course and results of above Most urgent issue for this gentleman at this point is the infection and the right lower lobe mass Hep C is secondary problem and can be dealt with on outpatient basis Patient follow-up with GI post discharge Not much to add at this point from a GI perspective we will sign off
[2018-03-06] MEDS: Morphine Inj 4 MG/ML Vial IV.PUSH PRN ×4 (04:54→21:13)
[2018-03-06] MEDS: Piperacil/Tazo 3.375 GM Premix 50 ML IV.SIG SCH ×4 (04:56→21:20)
[2018-03-06] MEDS: Chlorhexidine Gluconate 2% 1 Pack (2 Cloths) TOPICAL SCH (05:16)
[2018-03-06] MEDS: Hydrocortisone Sod Succinate 100 MG Vial IV.PUSH SCH ×3 (05:17→21:15)
[2018-03-06] MEDS: Pantoprazole Inj 40 MG Vial IV.PUSH SCH (08:56)
[2018-03-06] MEDS: Metoprolol Tartrate 25 MG Tablet PO SCH ×2 (08:57→21:15)
[2018-03-06] MEDS: Docusate Sodium 100 MG Capsule PO SCH ×2 (08:57→21:18)
[2018-03-06] MEDS: Senna/Docusate Sodium 8.6/50 MG Tablet PO SCH ×2 (08:58→21:16)
--- NOTE | 2018-03-06 09:33 | P.PN ---
Physical Exam Vital signs: Vital Signs 03/05/18 10:00 03/05/18 11:00 03/05/18 12:00 Temperature 98.1 F Pulse Rate 91 H 101 H 97 H Respiratory Rate 18 Blood Pressure 147/89 H 03/05/18 12:19 03/05/18 13:00 03/05/18 14:00 Temperature Pulse Rate 88 108 H Respiratory Rate 20 Blood Pressure 03/05/18 15:00 03/05/18 15:02 03/05/18 16:00 Temperature 98 F Pulse Rate 114 H 110 H Respiratory Rate 18 17 Blood Pressure 114/92 H 03/05/18 16:34 03/05/18 17:00 03/05/18 17:43 Temperature Pulse Rate 71 98 H Respiratory Rate 18 18 Blood Pressure 03/05/18 18:00 03/05/18 20:00 03/05/18 20:55 Temperature 97.4 F L Pulse Rate 89 105 H 96 H Respiratory Rate 16 18 Blood Pressure 135/98 H 03/05/18 21:00 03/05/18 21:05 03/06/18 00:00 Temperature 97.4 F L Pulse Rate 99 H Respiratory Rate 16 16 16 Blood Pressure 123/88 03/06/18 04:00 03/06/18 04:21 03/06/18 05:15 Temperature 97.4 F L Pulse Rate 99 H 99 H Respiratory Rate 16 16 16 Blood Pressure 123/88 03/06/18 05:16 03/06/18 07:00 03/06/18 08:00 Temperature 98.3 F Pulse Rate 99 H 98 H Respiratory Rate 16 16 Blood Pressure 148/109 H Intake & Output 03/05/18 03/06/18 03/06/18 18:59 06:59 18:59 Intake Total 820 / 820 730 / 730 50 / 50 Output Total 600 / 600 750 / 750 Balance 220 / 220 -20 / -20 50 / 50 Weight 62.7 kg Intake: IV 100 / 100 50 / 50 50 / 50 Zosyn 3.375 GM Premix 50 ML @ 100 / 100 50 / 50 50 / 50 100 mls/hr IV.SIG Q6H [facility] Rx#: [id number] Oral 720 / 720 680 / 680 Output: Urine 600 / 600 750 / 750 Other: Date of Last Bowel Movement 07/21/18 07/21/18 # Bowel Movements 1 Narrative: Subjective Feels shortness of breath with ambulation. Still with coughing blood. Feels tired. Eating fairly well no nausea vomiting no diarrhea constipation. Physical exam General: Patient is a very pleasant 62-year-old male, appears in NAD Respiratory: Decreased breath sounds. No obvious area of congestion. No tachypnea. Cardiovascular: normal rate and rhythm. No murmurs appreciated GI/abdomen: Soft, nontender, bowel sounds present Extremities: Warm bilaterally, no edema. Neuro: grossly normal CN. No sensory deficit. Normal speech. Motor function grossly normal. Assessment and Plan Mr. Mendez is a 62 yo M who presented with chest pain and shortness of breath; patient found to have A fib with RVR with signs of sepsis. Concern for pulmonary and brain lesions suspicious for malignancy on imaging: Cardiac Impression: Afib with RVR initially; patient titrated off of amiodarone and is currently rate controlled with Metoprolol per Critical care -Continue daily Metoprolol 25mg BID, PRN metoprolol IV -Continue telemetry -Initiate anticoagulation following bronchoscopy when cleared by pulm and gi Respiratory Impression: Right lower lobe density concerning for malignancy. Chronic COPD. Suspect malignancy/metastatic disease w/ post-obstructive pneumonia -Will empirically treat for pneumonia -Zosyn -Continue Hydrocotisone 100mg IV qhrs -Will plan to down-titrate -Pulmonology consulted -Bronchoscopy today -Continue to monitor O2 saturations. vital signs Neuro Occipital lobe lesion concerning for malignancy on CT imaging -Neurosurgery consulted -lesion not easily visible; MRI brain ordered for further characterization ID Impression: Met septic criteria on admission (HR 130, WBC 28.5K) with suspected pulmonary source. Lactic acid 3 initially. s/p IV hydration and pressure support -Continue to monitor CBC/leukocytosis while treating suspected sepsis/pneumonia -Continue monitor blood cultures (negative x3 days) GI Impression: CT imaging with suggestion of hepatomegaly and acalculous cholecystis. Associated LFT's with mild transaminase elevations. Hep C antibody +. Hep C can be addressed as outpatient. US gallbladder- thickening of gallbladder wall to 9mm suggestive of disease, increased echogenicity of parenchyma suggestive of fatty infiltration or other liver disease -GI consulted -initial plan for liver biopsy deferred due to bronchoscopy/biopsy. Possibly infection related vs drug induced due to IVDU -monitor labs, supportive care. Liver workup. Chronic pain -Continue Oxycodone 30mg q4hrs PRN -Will increase morphine to 6mg IV q 4hrs PRN DVT PPX -SCD's -Will plan to initiate Lovenox after 24hrs from bronchoscopy/biopsy Code Status: Full code DC plan Awaiting for BAL and lung biopsy results. Pending improvement and clearance by consultants Liver workup in progress Results - Labs CBC & Chem 7: 03/05/18 08:39 03/05/18 08:39 Laboratory Results - last 24 hr 03/03/18 03/05/18 07:00 08:39 Total Bilirubin 0.2 Alkaline Phosphatase 113 Total Protein 6.4 Ceruloplasmin 37 H Microbiology 03/04/18 11:55 Bronchial - Right Gram Stain - Final 03/04/18 11:55 Bronchial - Right Bronchial Culture - Preliminary No growth in 24 hours 03/01/18 22:55 Blood - Peripheral Aerobic Blood Culture - Preliminary No growth in 4 days 03/01/18 22:55 Blood - Peripheral Anaerobic Blood Culture - Preliminary No growth in 4 days 03/01/18 23:00 Blood - Peripheral Aerobic Blood Culture - Preliminary No growth in 4 days 03/01/18 23:00 Blood - Peripheral Anaerobic Blood Culture - Preliminary No growth in 4 days
[2018-03-06 09:51] LABS: HCV Genotype 1a (Not Detecte)
--- NOTE | 2018-03-06 11:02 | P.PNPL ---
Subjective Interval history: 62 YOWM with RLL mass, AF,brain mass breathing better Weaned to RA AF rate controlled Had Bronch Obstructing mass at RLL bronchus Up in chair Small amount of dark blood in mucous Physical Exam Vital signs: Vital Signs 03/05/18 12:00 03/05/18 12:19 03/05/18 13:00 Temperature 98.1 F Pulse Rate 97 H 88 Respiratory Rate 18 20 Blood Pressure 147/89 H 03/05/18 14:00 03/05/18 15:00 03/05/18 15:02 Temperature Pulse Rate 108 H 114 H Respiratory Rate 18 Blood Pressure 03/05/18 16:00 03/05/18 16:34 03/05/18 17:00 Temperature 98 F Pulse Rate 110 H 71 98 H Respiratory Rate 17 18 Blood Pressure 114/92 H 03/05/18 17:43 03/05/18 18:00 03/05/18 20:00 Temperature 97.4 F L Pulse Rate 89 105 H Respiratory Rate 18 16 Blood Pressure 135/98 H 03/05/18 20:55 03/05/18 21:00 03/05/18 21:05 Temperature Pulse Rate 96 H Respiratory Rate 18 16 16 Blood Pressure 03/06/18 00:00 03/06/18 04:00 03/06/18 04:21 Temperature 97.4 F L 97.4 F L Pulse Rate 99 H 99 H 99 H Respiratory Rate 16 16 16 Blood Pressure 123/88 123/88 03/06/18 05:15 03/06/18 05:16 03/06/18 07:00 Temperature Pulse Rate 99 H Respiratory Rate 16 16 Blood Pressure 03/06/18 08:00 03/06/18 10:08 Temperature 98.3 F Pulse Rate 98 H Respiratory Rate 16 20 Blood Pressure 148/109 H Intake & Output 03/05/18 03/06/18 03/06/18 18:59 06:59 18:59 Intake Total 820 / 820 730 / 730 100 / 100 Output Total 600 / 600 750 / 750 Balance 220 / 220 -20 / -20 100 / 100 Weight 62.7 kg Intake: IV 100 / 100 50 / 50 100 / 100 Zosyn 3.375 GM Premix 50 ML @ 100 / 100 50 / 50 100 / 100 100 mls/hr IV.SIG Q6H [facility] Rx#: [id number] Oral 720 / 720 680 / 680 Output: Urine 600 / 600 750 / 750 Other: Date of Last Bowel Movement 03/05/18 03/05/18 # Bowel Movements 1 GENERAL: MBMN,NAD SKIN: Warm and dry. HEAD: Normocephalic. EYES: No scleral icterus. No injection or drainage. NECK: Supple, trachea midline. No JVD or lymphadenopathy. CARDIOVASCULAR: Regular rate and rhythm without murmurs, gallops, or rubs. RESPIRATORY: Breath sounds equal bilaterally. No accessory muscle use. GASTROINTESTINAL: Abdomen soft, non-tender, nondistended. MUSCULOSKELETAL: No cyanosis, or edema. BACK: Nontender without obvious deformity. No CVA tenderness. Assessment and Plan - Plan IMPRESSION: 1. Right lower lobe density with obstruction in the right lower lobe. Need to rule out endobronchial lesion. 2. Weight loss. 3. Chronic obstructive pulmonary disease. 4. Nicotine use 5. Occipital lobe lesion. 5. Possible cholecystitis. 6. Leukocytosis. PLAN: Post Bronch CXr Supplement 02 Check Bronch results DW Pt bronch findings Monitor hemoptysis
[2018-03-06] MEDS ORDERED: LEVETIRACETAM IV.SIG ONE (13:00)
[2018-03-06] MEDS ORDERED: SODIUM CHLOR 0.9% IV.SIG ONE (13:00)
--- NOTE | 2018-03-06 18:06 | MG ---
cc: Benjamin Cm MD ELECTROENCEPHALOGRAM RECORD NUMBER: [id number]. DESCRIPTION: Spindles frequency EEG with theta alpha activity and paroxysmal 1-2 Hz delta walk on her heels. Occasional myogenic fast frequency artifact with overall slowing and . arousal background increments up to 6-8 Hz followed by sleep state again. Limited driving with photic stimulation. Single lead EKG showing some irregularity, possibly flutter. INTERPRETATION: Mild encephalopathy in sleep state. Cardiac arrhythmia. Clinical correlation. MD DIPTI Stark/ARNULFO , 05:47 PM , 06:04 PM
[2018-03-07] MEDS: Morphine Inj 4 MG/ML Vial IV.PUSH PRN ×4 (03:42→21:33)
[2018-03-07] MEDS: Piperacil/Tazo 3.375 GM Premix 50 ML IV.SIG SCH ×4 (03:45→22:42)
[2018-03-07 03:50] LABS: DS DNA Ab (Crithidia) NEGATIVE (NEGATIVE)
[2018-03-07] MEDS: Hydrocortisone Sod Succinate 100 MG Vial IV.PUSH SCH ×3 (06:09→21:33)
[2018-03-07] MEDS: Docusate Sodium 100 MG Capsule PO SCH ×2 (09:11→21:32)
[2018-03-07] MEDS: Senna/Docusate Sodium 8.6/50 MG Tablet PO SCH ×2 (09:11→21:32)
[2018-03-07] MEDS: Pantoprazole Inj 40 MG Vial IV.PUSH SCH (09:12)
[2018-03-07] MEDS: Metoprolol Tartrate 25 MG Tablet PO SCH ×2 (09:12→21:32)
[2018-03-07 11:52] LABS: Hepatitis C RNA (PCR) IUs/ml 9610000 IU/mL (0-14); Hepatitis C RNA (PCR) log IUs 6.98 (0-1.18)
--- NOTE | 2018-03-07 14:11 | P.PN ---
Physical Exam Vital signs: Vital Signs 03/06/18 14:52 03/06/18 14:53 03/06/18 15:00 Temperature Pulse Rate 99 H 94 H Respiratory Rate 18 18 Blood Pressure 131/96 H Pulse Oximetry 03/06/18 16:00 03/06/18 16:12 03/06/18 17:00 Temperature 98 F Pulse Rate 98 H 94 H 107 H Respiratory Rate 18 18 Blood Pressure 149/103 H Pulse Oximetry 03/06/18 18:00 03/06/18 19:00 03/06/18 20:00 Temperature 97.3 F L Pulse Rate 101 H 96 H 111 H Respiratory Rate 20 Blood Pressure 140/93 H Pulse Oximetry 97 03/06/18 21:06 03/06/18 23:00 03/07/18 00:00 Temperature 97.3 F L Pulse Rate 101 H 114 H 100 H Respiratory Rate 16 20 Blood Pressure 146/99 H Pulse Oximetry 96 03/07/18 01:00 03/07/18 02:00 03/07/18 03:00 Temperature Pulse Rate 112 H 106 H 86 Respiratory Rate Blood Pressure Pulse Oximetry 03/07/18 04:00 03/07/18 05:00 03/07/18 05:04 Temperature 97.5 F L Pulse Rate 100 H 88 104 H Respiratory Rate 20 20 Blood Pressure 142/102 H Pulse Oximetry 97 03/07/18 06:00 03/07/18 08:00 03/07/18 09:00 Temperature 97.5 F L Pulse Rate 96 H 99 H 91 H Respiratory Rate 20 18 Blood Pressure 156/102 H Pulse Oximetry 97 03/07/18 11:54 03/07/18 12:00 Temperature 97.6 F Pulse Rate 96 H Respiratory Rate 18 20 Blood Pressure 169/111 H Pulse Oximetry 98 Intake & Output 03/06/18 03/07/18 03/07/18 18:59 06:59 18:59 Intake Total 980 / 980 340 / 340 Output Total 800 / 800 300 / 300 Balance 180 / 180 40 / 40 Weight 62.7 kg Intake: IV 260 / 260 100 / 100 Zosyn 3.375 GM Premix 50 ML @ 150 / 150 100 / 100 100 mls/hr IV.SIG Q6H [facility] Rx#: [id number] Keppra Inj 1,000 MG In NS Inj 110 / 110 100 ML @ 440 mls/hr IV.SIG ONCE ONE Rx#:[id number] Oral 720 / 720 240 / 240 Output: Urine 800 / 800 300 / 300 Other: Date of Last Bowel Movement 03/06/18 Narrative: Subjective Feels shortness of breath with ambulation. Has LE edema and scrotal edema, will give lasix and monitor kidney fxn and UOP . Also will do doppler uS bilat. Still with coughing out some blood. Feels tired. Eating fairly well no nausea vomiting no diarrhea constipation. Physical exam General: Patient is a very pleasant 62-year-old male, appears in NAD. Respiratory: Decreased breath sounds. No obvious area of congestion. No tachypnea. Cardiovascular: normal rate and rhythm. No murmurs appreciated GI/abdomen: Soft, nontender, bowel sounds present Extremities: Warm bilaterally, significant bilateral LE edema and scrotal edema. Neuro: grossly normal CN. No sensory deficit. Normal speech. Motor function grossly normal. Assessment and Plan Mr. Mendez is a 62 yo M who presented with chest pain and shortness of breath; patient found to have A fib with RVR with signs of sepsis. Concern for pulmonary and brain lesions suspicious for malignancy on imaging: Cardiac Impression: Afib with RVR initially; patient titrated off of amiodarone and is currently rate controlled with Metoprolol per Critical care -Continue daily Metoprolol 25mg BID, PRN metoprolol IV -Continue telemetry -Initiate anticoagulation following bronchoscopy when cleared by pulm and gi Respiratory Impression: Right lower lobe density concerning for malignancy. Chronic COPD. Suspect malignancy/metastatic disease w/ post-obstructive pneumonia -Will empirically treat for pneumonia -Zosyn -Continue Hydrocotisone 100mg IV qhrs -Will plan to down-titrate -Pulmonology consulted -Bronchoscopy today -Continue to monitor O2 saturations. vital signs Neuro Occipital lobe lesion concerning for malignancy on CT imaging -Neurosurgery consulted -lesion not easily visible; MRI brain ordered for further characterization ID Impression: Met septic criteria on admission (HR 130, WBC 28.5K) with suspected pulmonary source. Lactic acid 3 initially. s/p IV hydration and pressure support -Continue to monitor CBC/leukocytosis while treating suspected sepsis/pneumonia -Continue monitor blood cultures (negative x3 days) GI Impression: CT imaging with suggestion of hepatomegaly and acalculous cholecystis. Associated LFT's with mild transaminase elevations. Hep C antibody +. Hep C can be addressed as outpatient. US gallbladder- thickening of gallbladder wall to 9mm suggestive of disease, increased echogenicity of parenchyma suggestive of fatty infiltration or other liver disease -GI consulted -initial plan for liver biopsy deferred due to bronchoscopy/biopsy. Possibly infection related vs drug induced due to IVDU -monitor labs, supportive care. Liver workup. Chronic pain -Continue Oxycodone 30mg q4hrs PRN -Will increase morphine to 6mg IV q 4hrs PRN LE edema , scrotal edema. Will do Doppler US legs . Strt lasix give one time IC= V 40 mg lasix, contiue daily pO lasix and monitor kidney function and UOP closely. Repeat BMP . 2D ECHO reviewed with Systolic CHF with ED of 40% DVT PPX -SCD's - Lovenox Code Status: Full code DC plan Awaiting for BAL and lung biopsy results. Pending improvement and clearance by consultants Liver workup in progress Results - Labs CBC & Chem 7: 03/05/18 08:39 03/05/18 08:39 Laboratory Results - last 24 hr 03/03/18 03/03/18 07:00 07:00 VASU Screen Negative VASU Titer ND VASU Pattern ND SS-A Antibody <1.0 neg SS-B Antibody <1.0 neg Sm (Peterson) Antibody <1.0 neg SM/IMPORT MANAGER Antibody <1.0 neg Scl-70 Antibody <1.0 neg Anti-ds DNA Titer (Crith) ND Anti-ds DNA (Crithidia) Negative Endomysial Ab Titer ND Endomysial IgA Ab ND Tiss Transglutamin IgA Less than 1 HCV RNA (PCR) IUs/ml [id number] H HCV RNA PCR log IUs/ml 6.98 H Microbiology 03/04/18 11:54 Bronchial Washings - Right Acid Fast Bacilli Smear - Final No acid fast bacilli seen 03/01/18 22:55 Blood - Peripheral Aerobic Blood Culture - Final No growth in 5 days 03/01/18 22:55 Blood - Peripheral Anaerobic Blood Culture - Final No growth in 5 days 03/01/18 23:00 Blood - Peripheral Aerobic Blood Culture - Final No growth in 5 days 03/01/18 23:00 Blood - Peripheral Anaerobic Blood Culture - Final No growth in 5 days 03/04/18 11:55 Bronchial - Right Gram Stain - Final 03/04/18 11:55 Bronchial - Right Bronchial Culture - Final No growth in 48 hours
--- NOTE | 2018-03-07 18:14 | P.PNPL ---
Subjective Interval history: 62 YOWM with RLL mass, AF,brain mass breathing better Weaned to RA AF rate controlled Had Bronch Obstructing mass at RLL bronchus Up in chair No hemoptysis Physical Exam Vital signs: Vital Signs 03/06/18 19:00 03/06/18 20:00 03/06/18 21:06 Temperature 97.3 F L Pulse Rate 96 H 111 H 101 H Respiratory Rate 20 16 Blood Pressure 140/93 H Pulse Oximetry 97 03/06/18 23:00 03/07/18 00:00 03/07/18 01:00 Temperature 97.3 F L Pulse Rate 114 H 100 H 112 H Respiratory Rate 20 Blood Pressure 146/99 H Pulse Oximetry 96 03/07/18 02:00 03/07/18 03:00 03/07/18 04:00 Temperature 97.5 F L Pulse Rate 106 H 86 100 H Respiratory Rate 20 Blood Pressure 142/102 H Pulse Oximetry 97 03/07/18 05:00 03/07/18 05:04 03/07/18 06:00 Temperature Pulse Rate 88 104 H 96 H Respiratory Rate 20 Blood Pressure Pulse Oximetry 03/07/18 07:00 03/07/18 08:00 03/07/18 09:00 Temperature 97.5 F L Pulse Rate 107 H 98 H 91 H Respiratory Rate 20 18 Blood Pressure 156/102 H Pulse Oximetry 97 03/07/18 10:00 03/07/18 11:00 03/07/18 11:54 Temperature Pulse Rate 100 H 104 H Respiratory Rate 18 Blood Pressure Pulse Oximetry 03/07/18 12:00 03/07/18 16:00 Temperature 97.6 F 97.5 F L Pulse Rate 94 H 105 H Respiratory Rate 20 18 Blood Pressure 169/111 H 149/107 H Pulse Oximetry 98 96 Intake & Output 03/06/18 03/07/18 03/07/18 18:59 06:59 18:59 Intake Total 980 / 980 340 / 340 50 / 50 Output Total 800 / 800 300 / 300 Balance 180 / 180 40 / 40 50 / 50 Weight 62.7 kg Intake: IV 260 / 260 100 / 100 50 / 50 Zosyn 3.375 GM Premix 50 ML @ 150 / 150 100 / 100 50 / 50 100 mls/hr IV.SIG Q6H [facility] Rx#: [id number] Keppra Inj 1,000 MG In NS Inj 110 / 110 100 ML @ 440 mls/hr IV.SIG ONCE ONE Rx#:[id number] Oral 720 / 720 240 / 240 Output: Urine 800 / 800 300 / 300 Other: Date of Last Bowel Movement 03/06/18 GENERAL: MBMN WM, weak, NAD SKIN: Warm and dry. HEAD: Normocephalic. EYES: No scleral icterus. No injection or drainage. NECK: Supple, trachea midline. No JVD or lymphadenopathy. CARDIOVASCULAR: Regular rate and rhythm without murmurs, gallops, or rubs. RESPIRATORY: Breath sounds equal bilaterally. No accessory muscle use. GASTROINTESTINAL: Abdomen soft, non-tender, nondistended. MUSCULOSKELETAL: No cyanosis, or edema. BACK: Nontender without obvious deformity. No CVA tenderness. Assessment and Plan - Plan IMPRESSION: 1. Right lower lobe density with obstruction in the right lower lobe. Need to rule out endobronchial lesion. 2. Weight loss. 3. Chronic obstructive pulmonary disease. 4. Nicotine use 5. Occipital lobe lesion. 5. Possible cholecystitis. 6. Leukocytosis. PLAN: Supplement 02 Check Bronch results DW Pt bronch findings Monitor hemoptysis Path still pending
[2018-03-07] MEDS: Furosemide 40 MG Tablet PO SCH (19:26)
[2018-03-08] MEDS: Morphine Inj 4 MG/ML Vial IV.PUSH PRN ×5 (01:46→22:29)
[2018-03-08 03:49] LABS: Mitochondria M2 Abs IgG 21.2 U (0-20.0)
[2018-03-08] MEDS: Piperacil/Tazo 3.375 GM Premix 50 ML IV.SIG SCH ×4 (04:13→23:38)
[2018-03-08 06:05] LABS: Baso % (Auto) 0.1 % (0.0-2.0); Hematocrit 36.4 % (39.0-51.0); Hemoglobin 11.7 gm/dL (13.0-17.0); Lymph # (Auto) 0.9 th/mm3 (1.0-4.8); Lymph % (Auto) 7.2 % (9.0-44.0); Mean Corpuscular HGB Conc 32.1 % (32.0-36.0); Mean Corpuscular Hemoglobin 25.8 pg (27.0-34.0); Mean Corpuscular Volume 80.5 fL (80.0-100.0); Mono # (Auto) 0.6 th/mm3 (0.0-0.9); Mono % (Auto) 5.2 % (0.0-8.0); Neut # (Auto) 10.5 th/mm3 (1.8-7.7); Neut % (Auto) 87.5 % (16.0-70.0); Platelet Count 377 th/mm3 (150-450); Red Blood Count 4.53 mil/mm3 (4.50-5.90); Red Cell Distribution Width 17.4 % (11.6-17.2)
[2018-03-08] MEDS: Hydrocortisone Sod Succinate 100 MG Vial IV.PUSH SCH ×3 (06:16→22:29)
[2018-03-08 06:32] LABS: Albumin 2.2 g/dL (3.4-5.0); Anion Gap 7 meq/L (5-15); Aspartate Aminotransferase 22 U/L (15-37); Blood Urea Nitrogen 22 mg/dL (7-18); Calcium 8.4 mg/dL (8.5-10.1); Carbon Dioxide 37.6 meq/L (21.0-32.0); Chloride 96 meq/L (98-107); Glomerular Filtration Rate Greater Than 89 mL/min (>89); Glucose,Random 96 mg/dL (74-106); Potassium 3.3 meq/L (3.5-5.1); Sodium 141 meq/L (136-145)
[2018-03-08 06:33] LABS: Alanine Aminotransferase 55 U/L (12-78)
[2018-03-08 06:46] LABS: Alkaline Phosphatase 109 U/L (45-117); Total Protein 6.7 g/dL (6.4-8.2)
[2018-03-08] MEDS ORDERED: Magnesium Oxide 400 MG Tablet PO ONE (08:47)
[2018-03-08] MEDS: Docusate Sodium 100 MG Capsule PO SCH ×2 (09:26→20:09)
[2018-03-08] MEDS: Metoprolol Tartrate 25 MG Tablet PO SCH ×2 (09:26→20:07)
[2018-03-08] MEDS: Furosemide 40 MG Tablet PO SCH ×2 (09:26→16:59)
[2018-03-08] MEDS: Pantoprazole Inj 40 MG Vial IV.PUSH SCH (09:27)
[2018-03-08] MEDS: Enoxaparin Inj 40 MG/0.4 ML Syringe SQ SCH (09:27)
[2018-03-08] MEDS: Senna/Docusate Sodium 8.6/50 MG Tablet PO SCH (10:18)
[2018-03-08 13:50] LABS: IgA Serum 277 mg/dL (81-463); Tissue Transglutaminase Ab IgG ND U/mL (())
--- NOTE | 2018-03-08 17:50 | P.PNPL ---
Subjective Interval history: 62 YOWM with RLL mass, AF,brain mass breathing better Weaned to RA AF rate controlled Had Bronch Obstructing mass at RLL bronchus Up in chair No hemoptysis Lung bx SSLC Physical Exam Vital signs: Vital Signs 03/07/18 18:00 03/07/18 19:00 03/07/18 20:00 Temperature 98.9 F Pulse Rate 108 H 103 H 118 H Respiratory Rate 16 Blood Pressure 154/105 H Pulse Oximetry 98 03/07/18 21:00 03/07/18 22:00 03/07/18 22:38 Temperature Pulse Rate 106 H 102 H Respiratory Rate 9 L Blood Pressure Pulse Oximetry 03/07/18 23:00 03/08/18 00:00 03/08/18 01:00 Temperature 97.4 F L Pulse Rate 99 H 88 82 Respiratory Rate 14 Blood Pressure 157/94 H Pulse Oximetry 95 03/08/18 01:18 03/08/18 02:00 03/08/18 03:00 Temperature Pulse Rate 94 H 94 H Respiratory Rate 14 Blood Pressure Pulse Oximetry 03/08/18 04:00 03/08/18 04:58 03/08/18 05:00 Temperature 97.4 F L Pulse Rate 89 92 H Respiratory Rate 20 18 Blood Pressure 160/96 H Pulse Oximetry 96 03/08/18 06:00 03/08/18 07:00 03/08/18 08:00 Temperature 97.7 F Pulse Rate 85 92 H 100 H Respiratory Rate 16 Blood Pressure 147/107 H Pulse Oximetry 100 03/08/18 09:00 03/08/18 10:00 03/08/18 10:18 Temperature Pulse Rate 98 H 106 H Respiratory Rate 18 Blood Pressure Pulse Oximetry 03/08/18 11:00 03/08/18 12:00 03/08/18 13:00 Temperature 97.7 F Pulse Rate 87 86 96 H Respiratory Rate 18 Blood Pressure 147/92 H Pulse Oximetry 98 03/08/18 14:00 03/08/18 15:00 03/08/18 16:00 Temperature 97.0 F L Pulse Rate 100 H 99 H 106 H Respiratory Rate 16 Blood Pressure 153/100 H Pulse Oximetry 96 Intake & Output 03/07/18 03/08/18 03/08/18 18:59 06:59 18:59 Intake Total 50 / 50 1830 / 1830 50 / 50 Output Total 3210 / 3210 Balance 50 / 50 -1380 / -1380 50 / 50 Weight 61.4 kg Intake: IV 50 / 50 150 / 150 50 / 50 Zosyn 3.375 GM Premix 50 ML @ 50 / 50 150 / 150 50 / 50 100 mls/hr IV.SIG Q6H SUSIE Rx#: [id number] Oral 1680 / 1680 Output: Urine 3210 / 3210 Other: # Voids 1 Weight On Admission 52.8 kg GENERAL: MBMN,NAD SKIN: Warm and dry. HEAD: Normocephalic. EYES: No scleral icterus. No injection or drainage. NECK: Supple, trachea midline. No JVD or lymphadenopathy. CARDIOVASCULAR: Regular rate and rhythm without murmurs, gallops, or rubs. RESPIRATORY: Breath sounds equal bilaterally. No accessory muscle use. GASTROINTESTINAL: Abdomen soft, non-tender, nondistended. MUSCULOSKELETAL: No cyanosis, or edema. BACK: Nontender without obvious deformity. No CVA tenderness. Assessment and Plan - Plan IMPRESSION: 1. Right lower lobe density with obstruction in the right lower lobe. Need to rule out endobronchial lesion. 2. Weight loss. 3. Chronic obstructive pulmonary disease. 4. Nicotine use 5. Occipital lobe lesion. 5. Possible cholecystitis. 6. Leukocytosis. 7. Small cell lung ca PLAN: Supplement 02 Monitor hemoptysis Consult Oncology.
--- NOTE | 2018-03-08 20:15 | P.PN ---
Physical Exam Vital signs: Vital Signs 03/07/18 21:00 03/07/18 22:00 03/07/18 22:38 Temperature Pulse Rate 106 H 102 H Respiratory Rate 9 L Blood Pressure Pulse Oximetry 03/07/18 23:00 03/08/18 00:00 03/08/18 01:00 Temperature 97.4 F L Pulse Rate 99 H 88 82 Respiratory Rate 14 Blood Pressure 157/94 H Pulse Oximetry 95 03/08/18 01:18 03/08/18 02:00 03/08/18 03:00 Temperature Pulse Rate 94 H 94 H Respiratory Rate 14 Blood Pressure Pulse Oximetry 03/08/18 04:00 03/08/18 04:58 03/08/18 05:00 Temperature 97.4 F L Pulse Rate 89 92 H Respiratory Rate 20 18 Blood Pressure 160/96 H Pulse Oximetry 96 03/08/18 06:00 03/08/18 07:00 03/08/18 08:00 Temperature 97.7 F Pulse Rate 85 92 H 100 H Respiratory Rate 16 Blood Pressure 147/107 H Pulse Oximetry 100 03/08/18 09:00 03/08/18 10:00 03/08/18 10:18 Temperature Pulse Rate 98 H 106 H Respiratory Rate 18 Blood Pressure Pulse Oximetry 03/08/18 11:00 03/08/18 12:00 03/08/18 13:00 Temperature 97.7 F Pulse Rate 87 86 96 H Respiratory Rate 18 Blood Pressure 147/92 H Pulse Oximetry 98 03/08/18 14:00 03/08/18 15:00 03/08/18 16:00 Temperature 97.0 F L Pulse Rate 100 H 99 H 102 H Respiratory Rate 16 Blood Pressure 153/100 H Pulse Oximetry 96 03/08/18 17:00 03/08/18 18:00 Temperature Pulse Rate 104 H 106 H Respiratory Rate Blood Pressure Pulse Oximetry Intake & Output 03/08/18 03/08/18 03/09/18 06:59 18:59 06:59 Intake Total 1830 / 1830 1060 / 1060 Output Total 3210 / 3210 1200 / 1200 Balance -1380 / -1380 -140 / -140 Weight 61.4 kg Intake: IV 150 / 150 100 / 100 Zosyn 3.375 GM Premix 50 ML @ 150 / 150 100 / 100 100 mls/hr IV.SIG Q6H SUSIE Rx#: [id number] Oral 1680 / 1680 960 / 960 Output: Urine 3210 / 3210 1200 / 1200 Other: # Voids 1 Weight On Admission 52.8 kg Narrative: Subjective F/up multiple medical problems. Afib with rvr. RLL mass, AF, brain mass, small cell CA likely with brain mets. Edema Feels shortness of breath and has some chest pain says he feels better when he is standing. With LE edema and scrotal edema, improved some with lasix. Had doppler US bilat neg. Not much bloody sputum. Feels tired. No nausea vomiting no diarrhea constipation. Physical exam General: Patient is a very pleasant 62-year-old male, ambulating in the room. Respiratory: Decreased breath sounds. No obvious area of congestion. No tachypnea. Cardiovascular: normal rate and rhythm. No murmurs appreciated GI/abdomen: Soft, nontender, bowel sounds present Extremities: Warm bilaterally, bilateral LE edema and scrotal edema improving. Neuro: grossly normal CN. No sensory deficit. Normal speech. Motor function grossly normal. Assessment and Plan Mr. Mendez is a 62 yo M who presented with chest pain and shortness of breath; patient found to have A fib with RVR with signs of sepsis. Pulmonary and brain lesions suspicious for malignancy on imaging. Patient had BAL and lung biopsy by pulm. Lung biopsy with small cell lung CA. Oncology consulted. Cardiac Impression: Afib with RVR initially; patient titrated off of amiodarone and is currently rate controlled with Metoprolol per Critical care -Continue daily Metoprolol 25mg BID, PRN metoprolol IV -Continue telemetry -Initiate anticoagulation following bronchoscopy when cleared by pulm , gi and hem/onc. Patient with occipital mass poss mets Respiratory Impression: Right lower lobe density concerning for malignancy. Chronic COPD. Suspect malignancy/metastatic disease w/ post-obstructive pneumonia 62 YOWM with RLL mass, AF,brain mass breathing better Weaned to RA AF rate controlled Had Bronch Obstructing mass at RLL bronchus Up in chair No hemoptysis Lung bx SSLC -Will empirically treat for pneumonia -Zosyn -Continue Hydrocotisone 100mg IV qhrs. Titrate. -Pulmonology consulted -s/p Bronchoscopy -Continue to monitor O2 saturations. vital signs Neuro Occipital lobe lesion concerning for malignancy on CT imaging -Neurosurgery consulted -lesion not easily visible; MRI brain ordered for further characterization ID Impression: Met septic criteria on admission (HR 130, WBC 28.5K) with suspected pulmonary source. Lactic acid 3 initially. s/p IV hydration and pressure support -Continue to monitor CBC/leukocytosis while treating suspected sepsis/pneumonia -Continue monitor blood cultures (negative x3 days) GI Impression: CT imaging with suggestion of hepatomegaly and acalculous cholecystis. Associated LFT's with mild transaminase elevations. Hep C antibody +. Hep C can be addressed as outpatient. US gallbladder- thickening of gallbladder wall to 9mm suggestive of disease, increased echogenicity of parenchyma suggestive of fatty infiltration or other liver disease -GI consulted -initial plan for liver biopsy deferred due to bronchoscopy/biopsy. Possibly infection related vs drug induced due to IVDU -monitor labs, supportive care. Liver workup. Chronic pain -Continue Oxycodone 30mg q4hrs PRN -Will increase morphine to 6mg IV q 4hrs PRN LE edema , scrotal edema. Recent Doppler US legs is neg. Start lasix give one time IC=V 40 mg lasix, contiue daily pO lasix and monitor kidney function and UOP closely. Repeat BMP . 2D ECHO reviewed with Systolic CHF with ED of 40% DVT PPX -SCD's - Lovenox Code Status: Full code DC plan Biopsy results with small cell lung carcinoma, oncology consulted. Pending improvement and clearance by consultants Results - Labs CBC & Chem 7: 03/08/18 05:04 03/08/18 05:04 Laboratory Results - last 24 hr 03/03/18 03/08/18 03/08/18 07:00 05:04 05:04 WBC 12.0 H RBC 4.53 Hgb 11.7 L Hct 36.4 L MCV 80.5 MCH 25.8 L MCHC 32.1 RDW 17.4 H Plt Count 377 MPV 8.0 Neut % (Auto) 87.5 H Lymph % (Auto) 7.2 L Storey % (Auto) 5.2 Eos % (Auto) 0.0 Baso % (Auto) 0.1 Neut # (Auto) 10.5 H Lymph # (Auto) 0.9 L Storey # (Auto) 0.6 Eos # (Auto) 0.0 Baso # (Auto) 0.0 WBC Differential . Differential Comment Auto diff final Sodium 141 Potassium 3.3 L Chloride 96 L Carbon Dioxide 37.6 H Anion Gap 7 BUN 22 H Creatinine 0.81 Estimated GFR Greater than 89 Random Glucose 96 Calcium 8.4 L Total Bilirubin 0.4 AST 22 ALT 55 Alkaline Phosphatase 109 Total Protein 6.7 Albumin 2.2 L IgA 277 Rheumatoid Factor 21 H Mitochondria M2 IgG Ab 21.2 H Tiss Transglutamin IgG ND Celiac Disease Interp
--- NOTE | 2018-03-08 20:16 | MB ---
cc: Sb Herrera MD, Boon Y MD DATE: 03/07/2018 CONSULTING PHYSICIAN: Dr. Barajas REASON FOR CONSULTATION: Oncology is consulted regarding a patient has newly diagnosed lung cancer. HISTORY OF PRESENT ILLNESS: The patient is a 62-year-old male with about a [id number] smoking history admitted to the hospital 03/01 with chest pain and shortness of breath. He was found to have atrial fibrillation and rapid ventricular rate. He subsequently developed hypotension and was admitted to the intensive care unit. The patient states that he has not been feeling well for the last 6 months. He has lost about 58 pounds. He has increased weakness. About a month ago, he started having pain in the right chest wall and shortness of breath. He also developed some numbness of the right hand and had an episode of dizziness. His symptoms are progressively getting worse. His friend told him to come to the hospital last week. A CT angiogram did not show any pulmonary embolism; however, he was found to have a large obstructing mass in the right lower lobe causing collapse. There were also multiple pleural based nodules in the right lung. A CT of the head showed a suspicious lesion in the left occipital lobe and MRI of the head showed an 8 mm lesion in the left cerebral hemisphere suspicious for metastatic disease. He had a bronchoscopy and biopsy of the right lower lobe lung mass showed small cell lung carcinoma. Oncology was consulted for further management. PAST MEDICAL HISTORY: He does not see a doctor. He has chronic back pain, but denies any chronic medical problems. During this hospital stay, he was found to have hepatitis C. PAST SURGICAL HISTORY: Right leg surgery and bilateral hernia repair. FAMILY HISTORY: Grandfather had some sort of cancer. He had 2 brothers, 2 sisters, 2 sons and a daughter, all relatively healthy. SOCIAL HISTORY: Smoked a pack a day on and off for about 25 years. He denies any alcohol use. 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 He lives in a boat by himself. ALLERGIES: NO KNOWN DRUG ALLERGIES. CURRENT MEDICATIONS: 1. DuoNebs 2. Colace. 3. Lovenox. 4. Lasix 5. Solu-Cortef 6. Metoprolol. 7. Protonix. 8. Zosyn. 9. Klor-Con 10. Senna PHYSICAL EXAMINATION: GENERAL: He is alert, oriented x3. He is thin. HEENT: Atraumatic, normocephalic. Pupils are equal, round, reactive to light. Extraocular muscles are intact. No scleral icterus. Oropharynx dry mucosa. NECK: No thyromegaly. No palpable mass. LYMPHATIC: No palpable cervical, clavicular, axillary, or inguinal lymph nodes. CARDIOVASCULAR: Regular S1, S2. No murmur. LUNGS: Decreased breath sounds right lung base, no significant wheezing. ABDOMEN: Soft, nontender. I could not palpate liver or spleen. EXTREMITIES: No cyanosis. He has 1+ bilateral lower extremity edema. No calf tenderness. SKIN: No rash or petechiae. NEUROLOGIC: Nonfocal. LABORATORY DATA: Dated 03/08/2018 was reviewed. ASSESSMENT: 1. Metastatic small cell lung carcinoma. He started developing constitutional symptoms about 6 months ago. He has lost about 58 pounds. He has increased weakness. He developed chest pain and shortness of breath that was progressively getting worse. On admission, a CT angiogram of the chest showed a large right lower lobe obstructing mass causing partial collapse of the right lung. There were also multiple pleural and subpleural nodules in the right lung that measured up to [address] of the head shows suspicious lesion in the left occipital lobe and subsequent MRI showed an 8 mm mass in the subependymal region of posterior horn of the left lateral ventricle. A bronchoscopy and biopsy of right lower lobe lung mass showed small cell lung carcinoma. CT abdomen and pelvis did not show obvious metastatic disease. At this time, I would recommend getting a bone scan to evaluate his back pain to see if he has any metastatic disease in the bone. I told the patient he has stage IV metastatic lung cancer and it is not a curable disease. Palliative chemotherapy and radiation will likely prolong his survival by several months. We discussed the pros and cons of treatment versus supportive care. The patient stated that he wants to be as aggressive as possible at this time. He was rather shocked with the diagnosis. I told him he is going to eventually need radiation to the brain mass. However, given the large right lung mass and his symptoms, I think he should have systemic palliative chemotherapy first. He likely could receive stereotactic radiation to the brain mass in between the chemotherapy. I will discuss further with radiation oncologist. We will also consult radiology for port placement for chemotherapy administration. The patient had some questions today which were answered. 2. Atrial fibrillation, now rate controlled. 3. Hepatitis C was newly diagnosed. 4. Postobstructive pneumonia. He is on antibiotic and symptoms have improved. RECOMMENDATIONS: 1. Extensive discussion with the patient as above. 2. Consult radiology for port placement. 3. I plan to treat him with palliative chemotherapy with carboplatin and etoposide. 4. Radiation oncology evaluation is pending. The patient will likely need stereotactic radiation to the brain lesion, but I think that could be done in between his chemotherapy treatment. Thank you, Dr. Barajas, for asking me to see this patient. MD DANI Orosco/ , 07:28 PM , 08:14 PM MTDD
[2018-03-09] MEDS: Morphine Inj 4 MG/ML Vial IV.PUSH PRN ×5 (02:32→23:32)
[2018-03-09] MEDS: Piperacil/Tazo 3.375 GM Premix 50 ML IV.SIG SCH ×3 (04:04→21:14)
[2018-03-09] MEDS: Hydrocortisone Sod Succinate 100 MG Vial IV.PUSH SCH ×3 (06:00→21:13)
--- NOTE | 2018-03-09 07:56 | P.PNONC ---
Subjective Interval history: Still has shortness of breath and some chest pain. He is eager to start chemotherapy treatment. He denies any headache. He still has visual floaters. Denies significant cough or hemoptysis per he has no nausea or vomiting. He denies any abdominal pain or diarrhea. He remains afebrile. Objective Vital Signs/Intake & Output: Vital Signs 03/08/18 08:00 03/08/18 09:00 03/08/18 10:00 Temperature 97.7 F Pulse Rate 100 H 98 H 106 H Respiratory Rate 16 Blood Pressure 147/107 H Pulse Oximetry 100 03/08/18 10:18 03/08/18 11:00 03/08/18 12:00 Temperature 97.7 F Pulse Rate 87 86 Respiratory Rate 18 18 Blood Pressure 147/92 H Pulse Oximetry 98 03/08/18 13:00 03/08/18 14:00 03/08/18 15:00 Temperature Pulse Rate 96 H 100 H 99 H Respiratory Rate Blood Pressure Pulse Oximetry 03/08/18 16:00 03/08/18 17:00 03/08/18 18:00 Temperature 97.0 F L Pulse Rate 102 H 104 H 106 H Respiratory Rate 16 Blood Pressure 153/100 H Pulse Oximetry 96 03/08/18 20:00 03/09/18 00:00 03/09/18 02:00 Temperature 97.4 F L 97.5 F L Pulse Rate 107 H 100 H 92 H Respiratory Rate 20 18 Blood Pressure 141/105 H 152/97 H Pulse Oximetry 94 L 96 03/09/18 03:30 03/09/18 04:00 03/09/18 05:00 Temperature 97.2 F L Pulse Rate 84 97 H Respiratory Rate 20 18 Blood Pressure 154/96 H Pulse Oximetry 03/09/18 06:00 03/09/18 07:00 03/09/18 07:35 Temperature 97.4 F L Pulse Rate 92 H 104 H 91 H Respiratory Rate 18 Blood Pressure 158/88 H Pulse Oximetry 97 Intake & Output 03/08/18 03/09/18 03/09/18 18:59 06:59 18:59 Intake Total 1060 / 1060 770 / 770 Output Total 1200 / 1200 Balance -140 / -140 770 / 770 Weight 61.2 kg Intake: IV 100 / 100 50 / 50 Zosyn 3.375 GM Premix 50 ML @ 100 / 100 50 / 50 100 mls/hr IV.SIG Q6H SUSIE Rx#: [id number] Oral 960 / 960 720 / 720 Output: Urine 1200 / 1200 Other: # Voids 2 Date of Last Bowel Movement 03/06/18 Result Diagrams: 03/08/18 05:04 03/08/18 05:04 Laboratory Results: Laboratory Results - last 24 hr 03/03/18 07:00 IgA 277 Rheumatoid Factor 21 H Tiss Transglutamin IgG ND Celiac Disease Interp Culture Results: Microbiology 03/04/18 11:54 Acid Fast Bacilli Smear - Final Bronchial Washings - Right No acid fast bacilli seen 03/01/18 22:55 Aerobic Blood Culture - Final Blood - Peripheral No growth in 5 days Anaerobic Blood Culture - Final No growth in 5 days 03/01/18 23:00 Aerobic Blood Culture - Final Blood - Peripheral No growth in 5 days Anaerobic Blood Culture - Final No growth in 5 days 03/04/18 11:55 Gram Stain - Final Bronchial - Right Bronchial Culture - Final No growth in 48 hours Medications: Active Medications Generic Name Dose Route Start Last Admin Trade Name Freq PRN Reason Stop Dose Admin Albuterol 1 ampul 03/02/18 00:41 03/07/18 05:04 Duoneb Neb (Prn) NEB 1 ampul Q2HR NEB PRN Administration WHEEZING Docusate Sodium 100 mg 03/03/18 10:00 03/08/18 20:09 Colace PO 100 mg BID SUSIE Administration Enoxaparin Sodium 40 mg 03/08/18 09:00 03/08/18 09:27 Lovenox Inj SQ 40 mg DAILY SUSIE Administration Furosemide 40 mg 03/07/18 18:00 03/08/18 16:59 Lasix PO 40 mg BID@0900,1800 SUSIE Administration Hydrocortisone Sodium Succinate 100 mg 03/02/18 06:00 03/09/18 06:00 Solucortef Inj IV.PUSH 100 mg Q8HR SUSIE Administration Piperacillin/Tazobactam/Dextrose 50 mls @ 100 mls/hr 03/04/18 04:00 03/09/18 04:04 Zosyn 3.375 Gm Premix IV.SIG 100 mls/hr Q6H SUSIE Administration Metoprolol Tartrate 25 mg 03/03/18 10:00 03/08/18 20:07 Lopressor PO 25 mg BID SUSIE Administration Morphine Sulfate 6 mg 03/04/18 11:00 03/09/18 06:01 Morphine Inj IV.PUSH 6 mg Q4H PRN Administration PAIN 6-10;IF UNABLE TO TAKE PO Ondansetron HCl 4 mg 03/02/18 00:41 03/03/18 09:20 Zofran Inj IV.PUSH 4 mg Q6H PRN Administration NAUSEA OR VOMITING Oxycodone HCl 30 mg 03/03/18 10:00 03/09/18 04:05 Roxicodone PO 30 mg Q4H PRN Administration SEE LABEL COMMENTS Pantoprazole Sodium 40 mg 03/02/18 09:00 03/08/18 09:27 Protonix Inj IV.PUSH 40 mg DAILY SUSIE Administration Senna/Docusate Sodium 1 tab 03/02/18 09:00 03/08/18 10:18 Heather-Colace PO Not Given BID SUSIE Sodium Chloride 2 ml 03/02/18 09:00 03/08/18 20:08 Ns Flush IV.FLUSH 2 ml BID SUSIE Administration Sodium Chloride 2 ml 03/02/18 00:41 03/04/18 21:33 Ns Flush IV.FLUSH 2 ml PRN PRN Administration FLUSH AFTER USING IV ACCESS Objective Remarks: GENERAL: Well-nourished, well-developed patient. Thin SKIN: Warm and dry. HEAD: Normocephalic. EYES: No scleral icterus. No injection or drainage. NECK: Supple, trachea midline. No JVD or lymphadenopathy. LYMPHATIC: No adenopathy. CARDIOVASCULAR: Regular rate and rhythm without murmurs. RESPIRATORY: Breath sounds decreased bilateral bases right greater than left. No accessory muscle use. GASTROINTESTINAL: Abdomen soft, non-tender, nondistended. EXTREMITIES: No cyanosis, 1+ BLE edema. MUSCULOSKELETAL: Adequate muscle tone. NEUROLOGICAL: No obvious focal deficit. Awake, alert, and oriented x3. PSYCHIATRIC: Appropriate mood and affect; insight and judgment normal. Assessment/Plan (1) Metastatic lung carcinoma Code(s): C78.00 - Secondary malignant neoplasm of unspecified lung Status: Acute (2) Metastatic adenocarcinoma to brain Code(s): C79.31 - Secondary malignant neoplasm of brain Status: Acute (3) Atrial fibrillation with RVR Code(s): I48.91 - Unspecified atrial fibrillation Status: Acute (4) Pneumonia Code(s): J18.9 - Pneumonia, unspecified organism Status: Acute - Plan 1. Metastatic small cell lung carcinoma. He started developing constitutional symptoms about 6 months ago. He has lost about 58 pounds. He has increased weakness. He developed chest pain and shortness of breath that was progressively getting worse. On admission, a CT angiogram of the chest showed a large right lower lobe obstructing mass causing partial collapse of the right lung. There were also multiple pleural and subpleural nodules in the right lung that measured up to [address] of the head shows suspicious lesion in the left occipital lobe and subsequent MRI showed an 8 mm mass in the subependymal region of posterior horn of the left lateral ventricle. A bronchoscopy and biopsy of right lower lobe lung mass showed small cell lung carcinoma. CT abdomen and pelvis did not show obvious metastatic disease. At this time, I would recommend getting a bone scan to evaluate his back pain to see if he has any metastatic disease in the bone. I told the patient he has stage IV metastatic lung cancer and it is not a curable disease. Palliative chemotherapy and radiation will likely prolong his survival by several months. We discussed the pros and cons of treatment versus supportive care. The patient stated that he wants to be as aggressive as possible at this time. He was rather shocked with the diagnosis. I told him he is going to eventually need radiation to the brain mass. However, given the large right lung mass and his symptoms, I think he should have systemic palliative chemotherapy first. He likely could receive stereotactic radiation to the brain mass in between the chemotherapy. I will discuss further with radiation oncologist. March 09, 2018: Another discussion with patient and his questions were answered. Arrange for bone scan. Consult radiology for port placement. Consult nursing for chemotherapy teaching. 2. Atrial fibrillation, now rate controlled. 3. Hepatitis C was newly diagnosed. 4. Postobstructive pneumonia. He is on antibiotic and symptoms have improved. He remains afebrile. Cultures are negative. (1) Metastatic lung carcinoma Qualifiers: Laterality: right Qualified Code(s): C78.01 - Secondary malignant neoplasm of right lung
[2018-03-09] MEDS: Pantoprazole Inj 40 MG Vial IV.PUSH SCH (09:30)
[2018-03-09] MEDS: Enoxaparin Inj 40 MG/0.4 ML Syringe SQ SCH (09:33)
[2018-03-09] MEDS: Metoprolol Tartrate 25 MG Tablet PO SCH ×2 (09:33→21:13)
[2018-03-09] MEDS: Senna/Docusate Sodium 8.6/50 MG Tablet PO SCH ×2 (09:36→21:21)
[2018-03-09] MEDS: Docusate Sodium 100 MG Capsule PO SCH ×2 (09:37→21:13)
[2018-03-09] MEDS: Furosemide 40 MG Tablet PO SCH ×2 (10:00→19:43)
--- NOTE | 2018-03-09 14:00 | NM ---
INDICATIONS: Lung cancer with metastatic diease. Smoker for 25 years. CLINICAL DATA: This is the patient's initial encounter. Patient reports that signs and symptoms have been present for 1 week and indicates a pain score of 5/10. MEDICAL/SURGICAL HISTORY: Carcinoma, lung. . Bone marrow transplant infection. COMPARISON: No prior exams available for comparison. No external comparison. TECHNIQUE: . . Whole body bone scan was performed at 2-3 hours. No correlative bone scan available for comparison. DOSE: 31.2 mCi Tc99m MDP IV FINDINGS: Whole body bone scan demonstrates no suspicious uptake in the axial or appendicular skeleton. No foc al areas of increased or decreased uptake are seen. CONCLUSION: No evidence of metastatic disease. Electronically signed by: Cristian Lee MD 03/09/2018 1:58 PM EDT
--- NOTE | 2018-03-09 14:24 | P.PN ---
Physical Exam Vital signs: Vital Signs 03/08/18 15:00 03/08/18 16:00 03/08/18 17:00 Temperature 97.0 F L Pulse Rate 99 H 102 H 104 H Respiratory Rate 16 Blood Pressure 153/100 H Pulse Oximetry 96 03/08/18 18:00 03/08/18 20:00 03/09/18 00:00 Temperature 97.4 F L 97.5 F L Pulse Rate 106 H 107 H 100 H Respiratory Rate 20 18 Blood Pressure 141/105 H 152/97 H Pulse Oximetry 94 L 96 03/09/18 02:00 03/09/18 03:30 03/09/18 04:00 Temperature 97.2 F L Pulse Rate 92 H 84 Respiratory Rate 20 18 Blood Pressure 154/96 H Pulse Oximetry 03/09/18 05:00 03/09/18 06:00 03/09/18 07:00 Temperature Pulse Rate 97 H 92 H 104 H Respiratory Rate Blood Pressure Pulse Oximetry 03/09/18 07:35 03/09/18 11:19 Temperature 97.4 F L 98.3 F Pulse Rate 91 H 87 Respiratory Rate 18 18 Blood Pressure 158/88 H 128/83 Pulse Oximetry 97 96 Intake & Output 03/08/18 03/09/18 03/09/18 18:59 06:59 18:59 Intake Total 1060 / 1060 820 / 820 Output Total 1200 / 1200 500 / 500 Balance -140 / -140 820 / 820 -500 / -500 Weight 61.2 kg Intake: IV 100 / 100 100 / 100 Zosyn 3.375 GM Premix 50 ML @ 100 / 100 100 / 100 100 mls/hr IV.SIG Q6H SUSIE Rx#: [id number] Oral 960 / 960 720 / 720 Output: Urine 1200 / 1200 500 / 500 Other: # Voids 2 Date of Last Bowel Movement 03/06/18 03/08/18 Narrative: Subjective F/up multiple medical problems. Afib with rvr. RLL mass, AF, brain mass, small cell CA likely with brain mets. Edema Feels shortness of breath and has some chest pain says he feels better when he is standing. With LE edema and scrotal edema, improved some with lasix. Had doppler US bilat neg. Not much bloody sputum. Feels tired. No nausea vomiting no diarrhea constipation. Physical exam General: Patient is a very pleasant 62-year-old male, ambulating in the room. Respiratory: Decreased breath sounds. Some sob. Cardiovascular: normal rate and rhythm. No murmurs appreciated GI/abdomen: Soft, nontender, bowel sounds present Extremities: Warm bilaterally, bilateral LE edema and scrotal edema improving. Neuro: Grossly normal CN. No sensory deficit. Normal speech. Motor function grossly normal. Assessment and Plan Mr. Mendez is a 62 yo M who presented with chest pain and shortness of breath; patient found to have A fib with RVR with signs of sepsis. Pulmonary and brain lesions suspicious for malignancy on imaging. Patient had BAL and lung biopsy by pulm. Lung biopsy with small cell lung CA. Oncology consulted. Afib with RVR initially; patient titrated off of amiodarone and is currently rate controlled with Metoprolol -Continue daily Metoprolol 25mg BID, PRN metoprolol IV -Continue telemetry. 2D ECHO reviewed with Systolic CHF with ED of 40% -Initiate anticoagulation following bronchoscopy when cleared by pulm , gi and hem/onc. 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 Presented with Right lower lobe density concerning for malignancy. Chronic COPD. Suspect malignancy/metastatic disease w/ post-obstructive pneumonia Weaned to RA Had Bronch Obstructing mass at RLL bronchus and Lung bx SSLC -Will empirically treat for pneumonia-Zosyn -Continue Hydrocotisone 100mg IV qhrs. Titrated. -Pulmonology consulted-s/p Bronchoscopy, ff -Continue to monitor O2 saturations. 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 A bronchoscopy and biopsy of right lower lobe lung mass showed small cell lung carcinoma. CT abdomen and pelvis did not show obvious metastatic disease. Plan for bone scan to evaluate his back pain to see if he has any metastatic disease in the bone. I told the patient he has stage IV metastatic lung cancer and it is not a curable disease. Palliative chemotherapy and radiation will likely prolong his survival by several months. 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 Met septic criteria on admission (HR 130, WBC 28.5K) with suspected pulmonary source. Lactic acid 3 initially. s/p IV hydration and pressure support -Continue to monitor CBC/leukocytosis while treating suspected sepsis/pneumonia -Continue monitor blood cultures (negative to date) Hepatomegaly and acalculous cholecystis Hep C CT imaging with suggestion of hepatomegaly and acalculous cholecystis. Associated LFT's with mild transaminase elevations. Hep C antibody +. Hep C can be addressed as outpatient. US gallbladder- thickening of gallbladder wall to 9mm suggestive of disease, increased echogenicity of parenchyma suggestive of fatty infiltration or other liver disease -GI consulted -initial plan for liver biopsy deferred due to bronchoscopy/biopsy. Possibly infection related vs drug induced due to IVDU -monitor labs, supportive care. Liver workup. Chronic pain -Continue Oxycodone 30mg q4hrs PRN -Morphine increased to 6mg IV q 4hrs PRN LE edema, scrotal edema. Recent Doppler US legs is neg. Contiue daily pO lasix 40 mg and monitor kidney function and UOP closely. Repeat BMP . 2D ECHO reviewed with Systolic CHF with ED of 40% DVT PPX -SCD's - Lovenox Code Status: Full code DC plan Biopsy results with small cell lung carcinoma, oncology consulted. Port placement and plan for radiation Pending improvement and clearance by consultants Results - Labs CBC & Chem 7: 03/08/18 05:04 03/08/18 05:04 Laboratory Results - last 24 hr 03/03/18 07:00 Celiac Disease Interp - Imaging Impressions Bone Scan Nuclear Medicine 03/09/18 00:00 CONCLUSION: No evidence of metastatic disease.
[2018-03-09] MEDS ORDERED: fentaNYL Citrate Inj 250 MCG/5 ML Ampul ONE (15:45)
[2018-03-09] MEDS ORDERED: Lidocaine 1%/Epinephrine 1:100,000 Inj 30 ML Vial ONE (15:47)
[2018-03-09] MEDS ORDERED: Heparin Central Flush 100 UNIT/ML 5 ML Vial IV.FLUSH ONE (15:47)
--- NOTE | 2018-03-09 15:52 | P.PNPL ---
Subjective Interval history: 62 YOWM with RLL mass, AF,brain mass breathing better Obstructing mass at RLL bronchus Up in chair No hemoptysis Lung bx SSLC Agnieszka Going for palliative chemo Physical Exam Vital signs: Vital Signs 03/08/18 16:00 03/08/18 17:00 03/08/18 18:00 Temperature 97.0 F L Pulse Rate 102 H 104 H 106 H Respiratory Rate 16 Blood Pressure 153/100 H Pulse Oximetry 96 03/08/18 20:00 03/09/18 00:00 03/09/18 02:00 Temperature 97.4 F L 97.5 F L Pulse Rate 107 H 100 H 92 H Respiratory Rate 20 18 Blood Pressure 141/105 H 152/97 H Pulse Oximetry 94 L 96 03/09/18 03:30 03/09/18 04:00 03/09/18 05:00 Temperature 97.2 F L Pulse Rate 84 97 H Respiratory Rate 20 18 Blood Pressure 154/96 H Pulse Oximetry 03/09/18 06:00 03/09/18 07:00 03/09/18 07:35 Temperature 97.4 F L Pulse Rate 92 H 104 H 91 H Respiratory Rate 18 Blood Pressure 158/88 H Pulse Oximetry 97 03/09/18 11:19 Temperature 98.3 F Pulse Rate 87 Respiratory Rate 18 Blood Pressure 128/83 Pulse Oximetry 96 Intake & Output 03/08/18 03/09/18 03/09/18 18:59 06:59 18:59 Intake Total 1060 / 1060 820 / 820 Output Total 1200 / 1200 500 / 500 Balance -140 / -140 820 / 820 -500 / -500 Weight 61.2 kg Intake: IV 100 / 100 100 / 100 Zosyn 3.375 GM Premix 50 ML @ 100 / 100 100 / 100 100 mls/hr IV.SIG Q6H SUSIE Rx#: [id number] Oral 960 / 960 720 / 720 Output: Urine 1200 / 1200 500 / 500 Other: # Voids 2 Date of Last Bowel Movement 03/06/18 03/08/18 GENERAL: Frail elderly Wm,NAD SKIN: Warm and dry. HEAD: Normocephalic. EYES: No scleral icterus. No injection or drainage. NECK: Supple, trachea midline. No JVD or lymphadenopathy. CARDIOVASCULAR: Regular rate and rhythm without murmurs, gallops, or rubs. RESPIRATORY: Breath sounds equal bilaterally. No accessory muscle use. GASTROINTESTINAL: Abdomen soft, non-tender, nondistended. MUSCULOSKELETAL: No cyanosis, or edema. BACK: Nontender without obvious deformity. No CVA tenderness. Assessment and Plan - Plan IMPRESSION: 1. Right lower lobe density with obstruction in the right lower lobe. Need to rule out endobronchial lesion. 2. Weight loss. 3. Chronic obstructive pulmonary disease. 4. Nicotine use 5. Occipital lobe lesion. 5. Possible cholecystitis. 6. Leukocytosis. 7. Small cell lung ca PLAN: Supplement 02 Monitor hemoptysis For Port placement plans for Palliative chemo. DW Pt
[2018-03-09] MEDS ORDERED: Iohexol 350 MG/ML 50 ML Vial (for Rad Diag) IVCONTRAST ONE (17:19)
--- NOTE | 2018-03-09 17:30 | IR ---
EXAM DATE: 03/09/2018 5:15 PM EDT AGE/SEX: 62 years / Male INDICATIONS: Patient presents with lung cancer in need of port placement for chemotherapy treatment. CLINICAL DATA: This is the patient's initial encounter. Patient reports that signs and symptoms have been present for 1 week and indicates a pain score of 0/10. MEDICAL/SURGICAL HISTORY: . Opiate abuse and dependence AFIB . N/A COMPARISON: No prior exams available for comparison. FLUORO TIME (min): 8.24 IMAGE SERIES: 4 SEDATION TIME (min): 45 CONTRAST (cc): 16cc Omnipaque (iohexol) 350 MEDICATION(S): 2.5mg midazolam (Versed) IV 125mcg fentanyl (Sublimaze) IV DEVICE(S): Right 8fr Xcela plus port . . PROCEDURE : 1. Continuous pulse oximetry and EKG monitoring. 2. Intravenous conscious sedation. 3. Ultrasound guidance for venous access. 4. Fluoroscopic guided implantable central venous port placement. The patient was placed supine. The neck was prepped in sterile fashion. Full sterile technique was u sed, including cap, mask, sterile gloves and gown, and a large sterile sheet. Hand hygiene and 2% ch lorhexidine Betadine was utilized per protocol for cutaneous antisepsis with appropriate dry time for site. Sterile gel and sterile probe cover were utilized for ultrasound guidance. The skin and sub cutaneous tissues were infiltrated with local anesthetic solution. Under direct ultrasound guidance, central venous access was accomplished in the targeted vessel. The ultrasound images depicting access guidance were stored and saved to PACS for permanent record. A s ubcutaneous pocket was created using blunt dissection. The port was introduced to the pocket. The c atheter tubing was fed through a subcutaneous tunnel to the venotomy site. The catheter tubing was c ut to a suitable length and then was introduced through a valved Peel-Away sheath and positioned with catheter tubing tip at the cavo-atrial junction level. The pocket incision was closed with subcutic ular Vicryl suture. Steri-Strips were applied. The port was flushed and locked with heparin solutio n per protocol. Sterile dressing was applied to the site. The patient tolerated the procedure well. Conscious sedation was performed with the prescribed dosages and duration as above in the presence of an independent trained radiology nurse to assist in the monitoring of the patient. EKG and oximetry remained stable throughout the procedure. The patient tolerated the procedure well and there were no complications. The patient was sent to post anesthesia recovery in stable condition. Uncomplicated ultrasound and fluoroscopic guided implanted central venous port catheter placement as described in detail above. An 8 [employer] [employer] port was placed. Electronically signed by: Dheeraj Roth MD 03/09/2018 5:28 PM EDT
[2018-03-09] MEDS ORDERED: Piperacil/Tazo 3.375 GM Premix 50 ML IV.SIG SCH (19:00)
[2018-03-10] MEDS: Piperacil/Tazo 3.375 GM Premix 50 ML IV.SIG SCH ×4 (02:54→21:52)
[2018-03-10] MEDS: Morphine Inj 4 MG/ML Vial IV.PUSH PRN ×5 (04:47→21:52)
[2018-03-10 05:27] LABS: Baso % (Auto) 0.1 % (0.0-2.0); Eos % (Auto) 0.1 % (0.0-4.0); Hematocrit 38.9 % (39.0-51.0); Hemoglobin 12.5 gm/dL (13.0-17.0); Lymph % (Auto) 9.1 % (9.0-44.0); Mean Corpuscular HGB Conc 32.1 % (32.0-36.0); Mean Corpuscular Hemoglobin 25.7 pg (27.0-34.0); Mean Corpuscular Volume 80.2 fL (80.0-100.0); Mean Platelet Volume 7.8 fL (7.0-11.0); Mono # (Auto) 0.7 th/mm3 (0.0-0.9); Mono % (Auto) 5.9 % (0.0-8.0); Neut # (Auto) 9.6 th/mm3 (1.8-7.7); Neut % (Auto) 84.8 % (16.0-70.0); Platelet Count 450 th/mm3 (150-450); Red Blood Count 4.85 mil/mm3 (4.50-5.90); Red Cell Distribution Width 16.9 % (11.6-17.2); White Blood Count 11.4 th/mm3 (4.0-11.0)
[2018-03-10 05:59] LABS: Alanine Aminotransferase 44 U/L (12-78); Albumin 2.3 g/dL (3.4-5.0); Alkaline Phosphatase 90 U/L (45-117); Anion Gap 7 meq/L (5-15); Aspartate Aminotransferase 21 U/L (15-37); Blood Urea Nitrogen 19 mg/dL (7-18); Calcium 8.3 mg/dL (8.5-10.1); Carbon Dioxide 40.2 meq/L (21.0-32.0); Chloride 91 meq/L (98-107); Glomerular Filtration Rate 89 mL/min (>89); Glucose,Random 112 mg/dL (74-106); Sodium 138 meq/L (136-145); Total Protein 6.7 g/dL (6.4-8.2)
[2018-03-10 06:01] LABS: Potassium 2.5 meq/L (3.5-5.1)
--- NOTE | 2018-03-10 07:24 | P.PNONC ---
Subjective Interval history: Patient still has pain in anterior chest. He still has shortness of breath but stable. He denies any headache or visual changes. He had port placement yesterday and tolerated it well. Objective Vital Signs/Intake & Output: Vital Signs 03/09/18 07:35 03/09/18 08:00 03/09/18 10:05 Temperature 97.4 F L Pulse Rate 91 H 96 H Respiratory Rate 18 18 Blood Pressure 158/88 H Pulse Oximetry 97 03/09/18 11:19 03/09/18 11:20 03/09/18 12:00 Temperature 98.3 F Pulse Rate 87 92 H Respiratory Rate 18 16 Blood Pressure 128/83 Pulse Oximetry 96 03/09/18 17:20 03/09/18 17:30 03/09/18 18:53 Temperature Pulse Rate 94 H 86 Respiratory Rate 18 18 Blood Pressure 171/94 H 165/90 H 152/92 H Pulse Oximetry 98 03/09/18 21:00 03/09/18 21:04 03/09/18 21:21 Temperature 97.8 F Pulse Rate 96 H 100 H Respiratory Rate 18 17 Blood Pressure 135/93 H Pulse Oximetry 97 03/09/18 21:45 03/10/18 00:00 03/10/18 00:20 Temperature 97.8 F Pulse Rate 111 H Respiratory Rate 18 17 17 Blood Pressure 156/111 H Pulse Oximetry 99 03/10/18 04:00 Temperature 97.8 F Pulse Rate 95 H Respiratory Rate 17 Blood Pressure 161/96 H Pulse Oximetry 97 Intake & Output 03/09/18 03/10/18 03/10/18 18:59 06:59 18:59 Intake Total 50 / 50 580 / 580 Output Total 500 / 500 300 / 300 Balance -450 / -450 280 / 280 Weight 55.6 kg Intake: IV 50 / 50 100 / 100 Zosyn 3.375 GM Premix 50 ML @ 50 / 50 100 / 100 100 mls/hr IV.SIG Q6H SUSIE Rx#: [id number] Oral 480 / 480 Output: Urine 500 / 500 300 / 300 Other: # Voids 2 Date of Last Bowel Movement 03/08/18 03/10/18 # Bowel Movements 1 Result Diagrams: 03/10/18 04:55 03/10/18 04:55 Laboratory Results: Laboratory Results - last 24 hr 03/10/18 03/10/18 04:55 04:55 WBC 11.4 H RBC 4.85 Hgb 12.5 L Hct 38.9 L MCV 80.2 MCH 25.7 L MCHC 32.1 RDW 16.9 Plt Count 450 MPV 7.8 Neut % (Auto) 84.8 H Lymph % (Auto) 9.1 Stanley % (Auto) 5.9 Eos % (Auto) 0.1 Baso % (Auto) 0.1 Neut # (Auto) 9.6 H Lymph # (Auto) 1.0 Stanley # (Auto) 0.7 Eos # (Auto) 0.0 Baso # (Auto) 0.0 WBC Differential . Differential Comment Auto diff final Sodium 138 Potassium 2.5 L* D Chloride 91 L Carbon Dioxide 40.2 H Anion Gap 7 BUN 19 H Creatinine 0.87 Estimated GFR 89 Random Glucose 112 H Calcium 8.3 L Total Bilirubin 0.3 AST 21 ALT 44 Alkaline Phosphatase 90 Total Protein 6.7 Albumin 2.3 L Imaging Studies: Impressions Bone Scan Nuclear Medicine 03/09/18 00:00 CONCLUSION: No evidence of metastatic disease. Port Line Insertion 03/09/18 00:00 CONCLUSION: Medications: Active Medications Generic Name Dose Route Start Last Admin Trade Name Freq PRN Reason Stop Dose Admin Albuterol 1 ampul 03/02/18 00:41 03/07/18 05:04 Duoneb Neb (Prn) NEB 1 ampul Q2HR NEB PRN Administration WHEEZING Docusate Sodium 100 mg 03/03/18 10:00 03/09/18 21:13 Colace PO 100 mg BID SUSIE Administration Enoxaparin Sodium 40 mg 03/08/18 09:00 03/09/18 09:33 Lovenox Inj SQ Not Given DAILY SUSIE Furosemide 40 mg 03/07/18 18:00 03/09/18 19:43 Lasix PO 40 mg BID@0900,1800 SUSIE Administration Piperacillin/Tazobactam/Dextrose 50 mls @ 100 mls/hr 03/09/18 20:00 03/10/18 03:40 Zosyn 3.375 Gm Premix IV.SIG Infused Q6H SUSIE Infusion Metoprolol Tartrate 25 mg 03/03/18 10:00 03/09/18 21:13 Lopressor PO 25 mg BID SUSIE Administration Morphine Sulfate 6 mg 03/04/18 11:00 03/10/18 04:47 Morphine Inj IV.PUSH 6 mg Q4H PRN Administration PAIN 6-10;IF UNABLE TO TAKE PO Ondansetron HCl 4 mg 03/02/18 00:41 03/03/18 09:20 Zofran Inj IV.PUSH 4 mg Q6H PRN Administration NAUSEA OR VOMITING Oxycodone HCl 30 mg 03/03/18 10:00 03/10/18 06:49 Roxicodone PO 30 mg Q4H PRN Administration SEE LABEL COMMENTS Pantoprazole Sodium 40 mg 03/02/18 09:00 03/09/18 09:30 Protonix Inj IV.PUSH 40 mg DAILY SUSIE Administration Potassium Chloride 10 meq 03/09/18 09:00 03/09/18 09:32 Klor-Con 10 PO 10 meq DAILY SUSIE Administration Senna/Docusate Sodium 1 tab 03/02/18 09:00 03/09/18 21:21 Heather-Colace PO Not Given BID SUSIE Sodium Chloride 2 ml 03/02/18 09:00 03/09/18 21:15 Ns Flush IV.FLUSH 2 ml BID SUSIE Administration Sodium Chloride 2 ml 03/02/18 00:41 03/04/18 21:33 Ns Flush IV.FLUSH 2 ml PRN PRN Administration FLUSH AFTER USING IV ACCESS Objective Remarks: GENERAL: Well-nourished, well-developed patient. Pain. SKIN: Warm and dry. Port site on the right chest wall noted. HEAD: Normocephalic. EYES: No scleral icterus. No injection or drainage. NECK: Supple, trachea midline. No JVD or lymphadenopathy. LYMPHATIC: No adenopathy. CARDIOVASCULAR: Regular rate and rhythm without murmurs. RESPIRATORY: Breath sounds decreased at the lung bases, worse on the right side. No accessory muscle use. GASTROINTESTINAL: Abdomen soft, non-tender, nondistended. EXTREMITIES: No cyanosis, or edema. MUSCULOSKELETAL: Adequate muscle tone. NEUROLOGICAL: No obvious focal deficit. Awake, alert, and oriented x3. PSYCHIATRIC: Appropriate mood and affect; insight and judgment normal. Assessment/Plan (1) Metastatic lung carcinoma Code(s): C78.00 - Secondary malignant neoplasm of unspecified lung Status: Acute (2) Metastatic adenocarcinoma to brain Code(s): C79.31 - Secondary malignant neoplasm of brain Status: Acute (3) Atrial fibrillation with RVR Code(s): I48.91 - Unspecified atrial fibrillation Status: Acute (4) Pneumonia Code(s): J18.9 - Pneumonia, unspecified organism Status: Acute - Plan A/P: 1. Metastatic small cell lung carcinoma. He started developing constitutional symptoms about 6 months ago. He has lost about 58 pounds. He has increased weakness. He developed chest pain and shortness of breath that was progressively getting worse. On admission, a CT angiogram of the chest showed a large right lower lobe obstructing mass causing partial collapse of the right lung. There were also multiple pleural and subpleural nodules in the right lung that measured up to [address] of the head shows suspicious lesion in the left occipital lobe and subsequent MRI showed an 8 mm mass in the subependymal region of posterior horn of the left lateral ventricle. A bronchoscopy and biopsy of right lower lobe lung mass showed small cell lung carcinoma. CT abdomen and pelvis did not show obvious metastatic disease. At this time, I would recommend getting a bone scan to evaluate his back pain to see if he has any metastatic disease in the bone. I told the patient he has stage IV metastatic lung cancer and it is not a curable disease. Palliative chemotherapy and radiation will likely prolong his survival by several months. We discussed the pros and cons of treatment versus supportive care. The patient stated that he wants to be as aggressive as possible at this time. He was rather shocked with the diagnosis. I told him he is going to eventually need radiation to the brain mass. However, given the large right lung mass and his symptoms, I think he should have systemic palliative chemotherapy first. He likely could receive stereotactic radiation to the brain mass in between the chemotherapy. I will discuss further with radiation oncologist. March 09, 2018: Another discussion with patient and his questions were answered. Arrange for bone scan. Consult radiology for port placement. Consult nursing for chemotherapy teaching. March 10, 2018: Review bone scan with patient which was negative for metastatic disease in the bone. Plan to treat him with carboplatin and etoposide starting tomorrow. Explained the potential side effect of patient, He is going to have chemotherapy teaching.aa 2. Atrial fibrillation, now rate controlled. 3. Hepatitis C was newly diagnosed. 4. Postobstructive pneumonia. He is on antibiotic and symptoms have improved. He remains afebrile. Cultures are negative. (1) Metastatic lung carcinoma Qualifiers: Laterality: right Qualified Code(s): C78.01 - Secondary malignant neoplasm of right lung
[2018-03-10] MEDS: Hydrocortisone Sod Succinate 100 MG Vial IV.PUSH SCH ×2 (08:55→20:49)
[2018-03-10] MEDS: Enoxaparin Inj 40 MG/0.4 ML Syringe SQ SCH (08:56)
[2018-03-10] MEDS: Pantoprazole Inj 40 MG Vial IV.PUSH SCH (08:56)
[2018-03-10] MEDS: Metoprolol Tartrate 25 MG Tablet PO SCH ×2 (08:56→20:49)
[2018-03-10] MEDS: Furosemide 40 MG Tablet PO SCH ×2 (09:07→18:07)
[2018-03-10] MEDS: Docusate Sodium 100 MG Capsule PO SCH ×2 (09:29→20:49)
[2018-03-10] MEDS: Senna/Docusate Sodium 8.6/50 MG Tablet PO SCH ×3 (12:00→23:43)
--- NOTE | 2018-03-10 14:39 | P.PN ---
Physical Exam Vital signs: Vital Signs 03/09/18 17:20 03/09/18 17:30 03/09/18 18:53 Temperature Pulse Rate 94 H 86 Respiratory Rate 18 18 Blood Pressure 171/94 H 165/90 H 152/92 H Pulse Oximetry 98 03/09/18 21:00 03/09/18 21:04 03/09/18 21:21 Temperature 97.8 F Pulse Rate 96 H 100 H Respiratory Rate 18 17 Blood Pressure 135/93 H Pulse Oximetry 97 03/09/18 21:45 03/10/18 00:00 03/10/18 00:20 Temperature 97.8 F Pulse Rate 111 H Respiratory Rate 18 17 17 Blood Pressure 156/111 H Pulse Oximetry 99 03/10/18 04:00 03/10/18 07:19 03/10/18 08:44 Temperature 97.8 F 97.8 F Pulse Rate 95 H 92 H 95 H Respiratory Rate 17 20 Blood Pressure 161/96 H 144/102 H Pulse Oximetry 97 96 03/10/18 11:42 03/10/18 12:02 03/10/18 13:50 Temperature 98.0 F Pulse Rate 103 H 98 H Respiratory Rate 20 Blood Pressure 160/105 H 147/102 H Pulse Oximetry 98 Intake & Output 03/09/18 03/10/18 03/10/18 18:59 06:59 18:59 Intake Total 50 / 50 580 / 580 50 / 50 Output Total 500 / 500 300 / 300 Balance -450 / -450 280 / 280 50 / 50 Weight 55.6 kg Intake: IV 50 / 50 100 / 100 50 / 50 Zosyn 3.375 GM Premix 50 ML @ 50 / 50 100 / 100 50 / 50 100 mls/hr IV.SIG Q6H SUSIE Rx#: [id number] Oral 480 / 480 Output: Urine 500 / 500 300 / 300 Other: # Voids 2 Date of Last Bowel Movement 03/08/18 03/10/18 03/10/18 # Bowel Movements 1 Narrative: Subjective F/up multiple medical problems. Afib with rvr. RLL mass, AF, brain mass, small cell CA likely with brain mets. Edema Less edema in his legs. Some intermittent chest pain. With some shortness of breath however he is saturating well on room air at this time. No fever or chills. Productive cough no blood in it. Plan to start chemo and radiation. Physical exam General: Patient is a very pleasant 62-year-old male, ambulating in the room. Respiratory: Decreased breath sounds. Some sob. Cardiovascular: normal rate and rhythm. No murmurs appreciated GI/abdomen: Soft, nontender, bowel sounds present Extremities: Warm bilaterally, bilateral LE edema and scrotal edema improving. Neuro: Grossly normal CN. No sensory deficit. Normal speech. Motor function grossly normal. Assessment and Plan Mr. Mendez is a 62 yo M who presented with chest pain and shortness of breath; patient found to have A fib with RVR with signs of sepsis. Pulmonary and brain lesions suspicious for malignancy on imaging. Patient had BAL and lung biopsy by pulm. Lung biopsy with small cell lung CA. Oncology consulted. Afib with RVR initially; patient titrated off of amiodarone and is currently rate controlled with Metoprolol -Continue daily Metoprolol 25mg BID, PRN metoprolol IV -Continue telemetry. 2D ECHO reviewed with Systolic CHF with ED of 40% -Initiate anticoagulation following bronchoscopy when cleared by pulm , gi and hem/onc. 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 Presented with Right lower lobe density concerning for malignancy. Chronic COPD. Suspect malignancy/metastatic disease w/ post-obstructive pneumonia Weaned to RA Had Bronch Obstructing mass at RLL bronchus and Lung bx SSLC -Will empirically treat for pneumonia-Zosyn -Continue Hydrocotisone 100mg IV qhrs. Titrated. -Pulmonology consulted-s/p Bronchoscopy, ff -Continue to monitor O2 saturations. 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 A bronchoscopy and biopsy of right lower lobe lung mass showed small cell lung carcinoma. CT abdomen and pelvis did not show obvious metastatic disease. Plan for bone scan to evaluate his back pain to see if he has any metastatic disease in the bone. I told the patient he has stage IV metastatic lung cancer and it is not a curable disease. Palliative chemotherapy and radiation will likely prolong his survival by several months. 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 Met septic criteria on admission (HR 130, WBC 28.5K) with suspected pulmonary source. Lactic acid 3 initially. s/p IV hydration and pressure support -Continue to monitor CBC/leukocytosis while treating suspected sepsis/pneumonia -Continue monitor blood cultures (negative to date) Hepatomegaly and acalculous cholecystis Hep C CT imaging with suggestion of hepatomegaly and acalculous cholecystis. Associated LFT's with mild transaminase elevations. Hep C antibody +. Hep C can be addressed as outpatient. US gallbladder- thickening of gallbladder wall to 9mm suggestive of disease, increased echogenicity of parenchyma suggestive of fatty infiltration or other liver disease -GI consulted -initial plan for liver biopsy deferred due to bronchoscopy/biopsy. Possibly infection related vs drug induced due to IVDU -monitor labs, supportive care. Liver workup. Chronic pain -Continue Oxycodone 30mg q4hrs PRN -Morphine increased to 6mg IV q 4hrs PRN LE edema, scrotal edema. Recent Doppler US legs is neg. Contiue daily pO lasix 40 mg and monitor kidney function and UOP closely. Repeat BMP . 2D ECHO reviewed with Systolic CHF with ED of 40% DVT PPX -SCD's - Lovenox Code Status: Full code DC plan Biopsy results with small cell lung carcinoma, oncology consulted. Port placement and plan for radiation Pending improvement and clearance by consultants Results - Labs CBC & Chem 7: 03/10/18 04:55 03/10/18 04:55 Laboratory Results - last 24 hr 03/10/18 03/10/18 04:55 04:55 WBC 11.4 H RBC 4.85 Hgb 12.5 L Hct 38.9 L MCV 80.2 MCH 25.7 L MCHC 32.1 RDW 16.9 Plt Count 450 MPV 7.8 Neut % (Auto) 84.8 H Lymph % (Auto) 9.1 Lucas % (Auto) 5.9 Eos % (Auto) 0.1 Baso % (Auto) 0.1 Neut # (Auto) 9.6 H Lymph # (Auto) 1.0 Lucas # (Auto) 0.7 Eos # (Auto) 0.0 Baso # (Auto) 0.0 WBC Differential . Differential Comment Auto diff final Sodium 138 Potassium 2.5 L* D Chloride 91 L Carbon Dioxide 40.2 H Anion Gap 7 BUN 19 H Creatinine 0.87 Estimated GFR 89 Random Glucose 112 H Calcium 8.3 L Total Bilirubin 0.3 AST 21 ALT 44 Alkaline Phosphatase 90 Total Protein 6.7 Albumin 2.3 L - Imaging Impressions Port Line Insertion 03/09/18 00:00 CONCLUSION:
--- NOTE | 2018-03-10 15:28 | P.CONPAL ---
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 assist with any symptoms of palliative concern Appreciation Thank you for the opportunity to participate in the care of Lorenzo Mendez . Attestation Attestation: To help prompt me to consider important information that might be impacting today's encounter and assessment, information from prior notes written by myself or my colleagues may have been "brought forward" into today's note. My signature on this note, however, is an attestation that I personally performed the exam, history, and/or decision-making noted today, and, unless otherwise indicated, the interactions with patient, family, and staff as well as the review of records all occurred today. I also attest that the listed assessment and stated plan reflect my best clinical judgment today based on the combination of historical information, prior notes, and today's exam/ interactions. When time spent is documented, it refers only to time spent today by the signer, or if indicated, combined time spent today by collaborating physician/nurse practitioner.
--- NOTE | 2018-03-10 18:58 | P.PNPL ---
Subjective Interval history: 62 YOWM with RLL mass, AF,brain mass breathing better Obstructing mass at RLL bronchus Up in chair No hemoptysis Lung bx SSLC Had port placed Physical Exam Vital signs: Vital Signs 03/09/18 21:00 03/09/18 21:04 03/09/18 21:21 Temperature 97.8 F Pulse Rate 96 H 100 H Respiratory Rate 18 17 Blood Pressure 135/93 H Pulse Oximetry 97 03/09/18 21:45 03/10/18 00:00 03/10/18 00:20 Temperature 97.8 F Pulse Rate 111 H Respiratory Rate 18 17 17 Blood Pressure 156/111 H Pulse Oximetry 99 03/10/18 04:00 03/10/18 07:19 03/10/18 08:44 Temperature 97.8 F 97.8 F Pulse Rate 95 H 92 H 95 H Respiratory Rate 17 20 Blood Pressure 161/96 H 144/102 H Pulse Oximetry 97 96 03/10/18 11:42 03/10/18 12:02 03/10/18 13:50 Temperature 98.0 F Pulse Rate 103 H 98 H Respiratory Rate 20 Blood Pressure 160/105 H 147/102 H Pulse Oximetry 98 03/10/18 15:44 03/10/18 16:28 Temperature 98.1 F Pulse Rate 97 H 103 H Respiratory Rate 18 Blood Pressure 160/100 H Pulse Oximetry 97 Intake & Output 03/09/18 03/10/18 03/10/18 18:59 06:59 18:59 Intake Total 50 / 50 580 / 580 800 / 800 Output Total 500 / 500 300 / 300 Balance -450 / -450 280 / 280 800 / 800 Weight 55.6 kg Intake: IV 50 / 50 100 / 100 100 / 100 Zosyn 3.375 GM Premix 50 ML @ 50 / 50 100 / 100 100 / 100 100 mls/hr IV.SIG Q6H SUSIE Rx#: [id number] Oral 480 / 480 700 / 700 Output: Urine 500 / 500 300 / 300 Other: # Voids 2 6 Date of Last Bowel Movement 03/08/18 03/10/18 03/10/18 # Bowel Movements 1 2 GENERAL: MBMN,NAD SKIN: Warm and dry. HEAD: Normocephalic. EYES: No scleral icterus. No injection or drainage. NECK: Supple, trachea midline. No JVD or lymphadenopathy. CARDIOVASCULAR: Regular rate and rhythm without murmurs, gallops, or rubs. RESPIRATORY: Breath sounds equal bilaterally. No accessory muscle use. GASTROINTESTINAL: Abdomen soft, non-tender, nondistended. MUSCULOSKELETAL: No cyanosis, or edema. BACK: Nontender without obvious deformity. No CVA tenderness. Assessment and Plan - Plan IMPRESSION: 1. Right lower lobe density with obstruction in the right lower lobe. Need to rule out endobronchial lesion. 2. Weight loss. 3. Chronic obstructive pulmonary disease. 4. Nicotine use 5. Occipital lobe lesion. 5. Possible cholecystitis. 6. Leukocytosis. 7. Small cell lung ca PLAN: Supplement 02 Monitor hemoptysis Chemo starting in AM DW Pt
[2018-03-11] MEDS: Morphine Inj 4 MG/ML Vial IV.PUSH PRN ×5 (02:48→20:45)
[2018-03-11] MEDS: Piperacil/Tazo 3.375 GM Premix 50 ML IV.SIG SCH ×4 (02:51→20:46)
[2018-03-11 05:38] LABS: Anion Gap 7 meq/L (5-15); Blood Urea Nitrogen 21 mg/dL (7-18); Calcium 8.4 mg/dL (8.5-10.1); Carbon Dioxide 42.5 meq/L (21.0-32.0); Chloride 90 meq/L (98-107); Glomerular Filtration Rate Greater Than 89 mL/min (>89); Glucose,Random 98 mg/dL (74-106); Sodium 139 meq/L (136-145)
[2018-03-11 06:05] LABS: Potassium 2.6 meq/L (3.5-5.1)
[2018-03-11 08:43] LABS: Baso % (Auto) 0.1 % (0.0-2.0); Eos % (Auto) 0.3 % (0.0-4.0); Hematocrit 36.6 % (39.0-51.0); Hemoglobin 12.1 gm/dL (13.0-17.0); Lymph # (Auto) 1.2 th/mm3 (1.0-4.8); Lymph % (Auto) 9.4 % (9.0-44.0); Mean Corpuscular Hemoglobin 26.8 pg (27.0-34.0); Mean Corpuscular Volume 81.3 fL (80.0-100.0); Mean Platelet Volume 8.1 fL (7.0-11.0); Mono # (Auto) 0.8 th/mm3 (0.0-0.9); Mono % (Auto) 6.6 % (0.0-8.0); Neut # (Auto) 10.2 th/mm3 (1.8-7.7); Neut % (Auto) 83.6 % (16.0-70.0); Platelet Count 408 th/mm3 (150-450); Red Blood Count 4.51 mil/mm3 (4.50-5.90); Red Cell Distribution Width 17.6 % (11.6-17.2); White Blood Count 12.2 th/mm3 (4.0-11.0)
[2018-03-11] MEDS: Pantoprazole Inj 40 MG Vial IV.PUSH SCH (09:31)
[2018-03-11] MEDS: Senna/Docusate Sodium 8.6/50 MG Tablet PO SCH ×2 (09:32→20:48)
[2018-03-11] MEDS: Docusate Sodium 100 MG Capsule PO SCH ×2 (09:32→20:47)
[2018-03-11] MEDS: Hydrocortisone Sod Succinate 100 MG Vial IV.PUSH SCH ×2 (09:32→20:46)
[2018-03-11] MEDS: Metoprolol Tartrate 25 MG Tablet PO SCH ×2 (09:34→20:47)
[2018-03-11] MEDS: Enoxaparin Inj 40 MG/0.4 ML Syringe SQ SCH (09:34)
[2018-03-11] MEDS: Furosemide 40 MG Tablet PO SCH ×2 (09:37→17:10)
--- NOTE | 2018-03-11 09:37 | P.PNPL ---
Subjective Interval history: 62 YOWM with RLL mass, AF,brain mass breathing better Obstructing mass at RLL bronchus Up in chair No hemoptysis Lung bx SSLC No new complaint Physical Exam Vital signs: Vital Signs 03/10/18 11:42 03/10/18 12:02 03/10/18 13:50 Temperature 98.0 F Pulse Rate 103 H 98 H Respiratory Rate 20 Blood Pressure 160/105 H 147/102 H Pulse Oximetry 98 03/10/18 15:44 03/10/18 16:28 03/10/18 20:00 Temperature 98.1 F 97.7 F Pulse Rate 97 H 103 H 103 H Respiratory Rate 18 Blood Pressure 160/100 H 145/92 H Pulse Oximetry 97 98 03/11/18 00:00 03/11/18 04:00 03/11/18 07:00 Temperature 97.5 F L 96.8 F L Pulse Rate 120 H 95 H 108 H Respiratory Rate 16 Blood Pressure 154/103 H 174/104 H Pulse Oximetry 95 98 03/11/18 09:26 Temperature 97.6 F Pulse Rate 105 H Respiratory Rate 18 Blood Pressure 144/95 H Pulse Oximetry 98 Intake & Output 03/10/18 03/11/18 03/11/18 18:59 06:59 18:59 Intake Total 800 / 800 100 / 100 Balance 800 / 800 100 / 100 Weight 55.4 kg Intake: IV 100 / 100 100 / 100 Zosyn 3.375 GM Premix 50 ML @ 100 / 100 100 / 100 100 mls/hr IV.SIG Q6H SUSIE Rx#: [id number] Oral 700 / 700 Other: # Voids 6 Date of Last Bowel Movement 03/10/18 03/10/18 # Bowel Movements 2 GENERAL: Elderly WM,NAD SKIN: Warm and dry. HEAD: Normocephalic. EYES: No scleral icterus. No injection or drainage. NECK: Supple, trachea midline. No JVD or lymphadenopathy. CARDIOVASCULAR: Regular rate and rhythm without murmurs, gallops, or rubs. RESPIRATORY: Breath sounds equal bilaterally. No accessory muscle use. GASTROINTESTINAL: Abdomen soft, non-tender, nondistended. MUSCULOSKELETAL: No cyanosis, or edema. BACK: Nontender without obvious deformity. No CVA tenderness. Assessment and Plan - Plan IMPRESSION: 1. Right lower lobe density with obstruction in the right lower lobe. Need to rule out endobronchial lesion. 2. Weight loss. 3. Chronic obstructive pulmonary disease. 4. Nicotine use 5. Occipital lobe lesion. 5. Possible cholecystitis. 6. Leukocytosis. 7. Small cell lung ca PLAN: Supplement 02 Monitor hemoptysis Chemo starting today DW Pt Stable from Pulm standpoint Avaialable prn over weekend
--- NOTE | 2018-03-11 11:06 | P.PNONC ---
Subjective Interval history: Patient is up walking around his room. He states that he has had some increased shortness of breath today, he reports it is relieved by being up in his room and walking around. He is in no acute distress and is able to carry on a conversation with me without any obvious dyspnea. He has some questions in regards to his treatment. All questions have been answered. Objective Vital Signs/Intake & Output: Vital Signs 03/10/18 11:42 03/10/18 12:02 03/10/18 13:50 Temperature 98.0 F Pulse Rate 103 H 98 H Respiratory Rate 20 Blood Pressure 160/105 H 147/102 H Pulse Oximetry 98 03/10/18 15:44 03/10/18 16:28 03/10/18 20:00 Temperature 98.1 F 97.7 F Pulse Rate 97 H 103 H 103 H Respiratory Rate 18 Blood Pressure 160/100 H 145/92 H Pulse Oximetry 97 98 03/11/18 00:00 03/11/18 04:00 03/11/18 07:00 Temperature 97.5 F L 96.8 F L Pulse Rate 120 H 95 H 108 H Respiratory Rate 16 Blood Pressure 154/103 H 174/104 H Pulse Oximetry 95 98 03/11/18 09:26 03/11/18 09:48 03/11/18 10:40 Temperature 97.6 F Pulse Rate 105 H Respiratory Rate 18 18 18 Blood Pressure 144/95 H Pulse Oximetry 98 Intake & Output 03/10/18 03/11/18 03/11/18 18:59 06:59 18:59 Intake Total 800 / 800 100 / 100 50 / 50 Balance 800 / 800 100 / 100 50 / 50 Weight 55.4 kg Intake: IV 100 / 100 100 / 100 50 / 50 Zosyn 3.375 GM Premix 50 ML @ 100 / 100 100 / 100 50 / 50 100 mls/hr IV.SIG Q6H SUSIE Rx#: [id number] Oral 700 / 700 Other: # Voids 6 Date of Last Bowel Movement 03/10/18 03/10/18 03/11/18 # Bowel Movements 2 Result Diagrams: 03/11/18 07:40 03/11/18 04:55 Laboratory Results: Laboratory Results - last 24 hr 03/11/18 03/11/18 03/11/18 04:55 04:55 07:40 WBC 12.2 H RBC 4.51 Hgb 12.1 L Hct 36.6 L MCV 81.3 MCH 26.8 L MCHC 33.0 RDW 17.6 H Plt Count 408 MPV 8.1 Neut % (Auto) 83.6 H Lymph % (Auto) 9.4 [place] % (Auto) 6.6 Eos % (Auto) 0.3 Baso % (Auto) 0.1 Neut # (Auto) 10.2 H Lymph # (Auto) 1.2 [place] # (Auto) 0.8 Eos # (Auto) 0.0 Baso # (Auto) 0.0 WBC Differential . Differential Comment Auto diff final Sodium 139 Potassium 2.6 L* Chloride 90 L Carbon Dioxide 42.5 H Anion Gap 7 BUN 21 H Creatinine 0.74 Estimated GFR Greater than 89 Random Glucose 98 Calcium 8.4 L Magnesium 1.9 Medications: Active Medications Generic Name Dose Route Start Last Admin Trade Name Freq PRN Reason Stop Dose Admin Albuterol 1 ampul 03/02/18 00:41 03/07/18 05:04 Duoneb Neb (Prn) NEB 1 ampul Q2HR NEB PRN Administration WHEEZING Docusate Sodium 100 mg 03/03/18 10:00 03/11/18 09:32 Colace PO 100 mg BID SUSIE Administration Enoxaparin Sodium 40 mg 03/08/18 09:00 03/11/18 09:34 Lovenox Inj SQ 40 mg DAILY SUSIE Administration Furosemide 40 mg 03/07/18 18:00 03/11/18 09:37 Lasix PO 40 mg BID@0900,1800 SUSIE Administration Hydrocortisone Sodium Succinate 100 mg 03/10/18 09:00 03/11/18 09:32 Solucortef Inj IV.PUSH 100 mg Q12HR SUSIE Administration Piperacillin/Tazobactam/Dextrose 50 mls @ 100 mls/hr 03/09/18 20:00 03/11/18 10:28 Zosyn 3.375 Gm Premix IV.SIG Infused Q6H SUSIE Infusion Metoprolol Tartrate 25 mg 03/03/18 10:00 03/11/18 09:34 Lopressor PO 25 mg BID SUSIE Administration Morphine Sulfate 6 mg 03/04/18 11:00 03/11/18 07:44 Morphine Inj IV.PUSH 6 mg Q4H PRN Administration PAIN 6-10;IF UNABLE TO TAKE PO Ondansetron HCl 4 mg 07/18/18 00:41 03/03/18 09:20 Zofran Inj IV.PUSH 4 mg Q6H PRN Administration NAUSEA OR VOMITING Oxycodone HCl 30 mg 03/03/18 10:00 03/11/18 09:32 Roxicodone PO 30 mg Q4H PRN Administration SEE LABEL COMMENTS Pantoprazole Sodium 40 mg 03/02/18 09:00 03/11/18 09:31 Protonix Inj IV.PUSH 40 mg DAILY SUSIE Administration Potassium Chloride 10 meq 03/09/18 09:00 03/11/18 09:32 Klor-Con 10 PO 10 meq DAILY SUSIE Administration Senna/Docusate Sodium 1 tab 03/02/18 09:00 03/11/18 09:32 Heather-Colace PO 1 tab BID SUSIE Administration Sodium Chloride 2 ml 03/02/18 09:00 03/11/18 09:48 Ns Flush IV.FLUSH 2 ml BID SUSIE Administration Sodium Chloride 2 ml 03/02/18 00:41 03/04/18 21:33 Ns Flush IV.FLUSH 2 ml PRN PRN Administration FLUSH AFTER USING IV ACCESS Objective Remarks: GENERAL: Ill-appearing, middle-aged male patient. In no acute distress. SKIN: Warm and dry. Steri-Strips to right superior collarbone, dry/intact. Right chest wall port access, dressing dry/intact. No drainage noted. HEAD: Normocephalic. EYES: No scleral icterus. No injection or drainage. PERRLA. NECK: Supple, trachea midline. CARDIOVASCULAR: Irregularly irregular rhythm without murmurs, rate controlled. RESPIRATORY: Posterior breath sounds diminished. No accessory muscle use. O2 via nasal cannula. GASTROINTESTINAL: Abdomen soft, non-tender, nondistended. EXTREMITIES: No cyanosis, or edema. MUSCULOSKELETAL: Adequate muscle tone. NEUROLOGICAL: No obvious focal deficit. Awake, alert, and oriented x3. PSYCHIATRIC: Appropriate mood and affect; insight and judgment normal. Assessment/Plan (1) Metastatic lung carcinoma Code(s): C78.00 - Secondary malignant neoplasm of unspecified lung Status: Acute (2) Metastatic adenocarcinoma to brain Code(s): C79.31 - Secondary malignant neoplasm of brain Status: Acute (3) Atrial fibrillation with RVR Code(s): I48.91 - Unspecified atrial fibrillation Status: Acute (4) Pneumonia Code(s): J18.9 - Pneumonia, unspecified organism Status: Acute - Plan A/P: 1. Metastatic small cell lung carcinoma. He started developing constitutional symptoms about 6 months ago. He has lost about 58 pounds. He has increased weakness. He developed chest pain and shortness of breath that was progressively getting worse. On admission, a CT angiogram of the chest showed a large right lower lobe obstructing mass causing partial collapse of the right lung. There were also multiple pleural and subpleural nodules in the right lung that measured up to [address] of the head shows suspicious lesion in the left occipital lobe and subsequent MRI showed an 8 mm mass in the subependymal region of posterior horn of the left lateral ventricle. A bronchoscopy and biopsy of right lower lobe lung mass showed small cell lung carcinoma. CT abdomen and pelvis did not show obvious metastatic disease. At this time, I would recommend getting a bone scan to evaluate his back pain to see if he has any metastatic disease in the bone. I told the patient he has stage IV metastatic lung cancer and it is not a curable disease. Palliative chemotherapy and radiation will likely prolong his survival by several months. We discussed the pros and cons of treatment versus supportive care. The patient stated that he wants to be as aggressive as possible at this time. He was rather shocked with the diagnosis. I told him he is going to eventually need radiation to the brain mass. However, given the large right lung mass and his symptoms, I think he should have systemic palliative chemotherapy first. He likely could receive stereotactic radiation to the brain mass in between the chemotherapy. I will discuss further with radiation oncologist. March 09, 2018: Another discussion with patient and his questions were answered. Arrange for bone scan. Consult radiology for port placement. Consult nursing for chemotherapy teaching. March 10, 2018: Review bone scan with patient which was negative for metastatic disease in the bone. Plan to treat him with carboplatin and etoposide starting tomorrow. Explained the potential side effect of patient, He is going to have chemotherapy teaching.aa 03/11/18: Chemotherapy treatment ordered to start today. Carbo/etoposide. 2. Atrial fibrillation, now rate controlled. 3. Hepatitis C was newly diagnosed. 4. Postobstructive pneumonia. He remains afebrile. Cultures are negative. Continue antibiotics. - Attending Statement The exam, history, and the medical decision-making described in the above note were completed with the assistance of the mid-level provider. I reviewed and agree with the findings presented. I attest that I had a [id number] encounter with the patient on the same day, and personally performed and documented my assessment and findings in the medical record.CP/SOB stable. He is ready to start chemo. Plan to start carboplatin/etoposide. Went over potential side effects with him again. Discussed case with also. Monitor for toxicity. (1) Metastatic lung carcinoma Qualifiers: Qualified Code(s): C78.01 - Secondary malignant neoplasm of right lung
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
[2018-03-11] MEDS ORDERED: Dexamethasone Inj 20 MG in Sodium Chlor 0.9% Inj 50 ML IV.SIG ONE (12:30)
[2018-03-11] MEDS: Granisetron 1 MG/ML Vial IV.PUSH SCH (12:47)
--- NOTE | 2018-03-11 12:47 | P.DIET ---
Nutritional Evaluation Type of nutrition evaluation: follow-up Nutrition screening: Weight Loss > 10 lbs (50-60# wt loss x 6months) Subjective Subjective Comments: Pt seen w/ RN. Pt very irritable towards me b/c of his cardiac diet and fluid restriction. Pt reported he was "starving" so I did order him some food to snack on before lunch. Pt denied N/V/D/C. Denied trouble chewing his food but does c/o swallowing trouble. States "it just won't go down". Took food preferences and supplement preferences. Pt frustrated at the time of my visit. Objective - Diagnosis Afib w/RVR, Hypotension, Sepsis - Objective % IBW: 86 (142#) Body Weight Used for Calculations: IBW (64.5kg) Energy Needs - Lower Range (kCal/kg): 30 Energy Needs - Upper Range (kCal/kg): 35 Lower Limit kCal/kg (kCals): 1,935 Upper Limit kCal/kg (kCals): 2,258 Lower Limit Protein Factor (Grams per Kg): 1.2 Upper Limit Protein Factor (Grams per Kg): 1.5 Lower Protein Needs (Protein): 77 Upper Protein Needs (Protein): 97 Fluid Factor (ml/kg): 30 Estimated Fluid Needs (ml): 1,935 Dietitian Reviewed in Medical Record: Current diet, Curent medications, Intake & Output, Labs, Medical history Diet Order: Regular Objective Comments: Meds: Lasix Labs: K 2.6 LBM 03/10 Stage IV metastatic lung cancer per Oncology Feeding - Current PO Supplement Current Supplement: Ensure Enlive Current Frequency of Supplement: Twice daily Current kCals Provided by Supplement: 350 Current Protein Provided by Supplement: 20 Assessment Assessment: Pt recently changed diet from Cardiac to a Regular per recs. Pt has complaints regarding the taste of the Ensure Enlive supplements, but when discussing about alternatives pt stated "it's fine I'll deal with it". Liked the Mighty Shake, but still said he would "deal with" the Enlive b/c it has more calories/protein. He's eating very well right now, but this could obviously change w/ the initiation of chemotherapy. Denied N/V/D/C. C/o trouble swallowing, saying he needs to drink continuous sips in order for "it to go down ". Pt to start Carboplatin and Etoposide today per RN. Dietitian will continue to follow as pt undergoes chemotherapy. Consider a speech therapy consult 2/2 pts c/o trouble swallowing. Enlive BID as pt does not want them TID. Dietitian following. Recommendations: 1. Continue Regular diet. 2. Enlive BID per pt preference. 3. Consider ST consult since pt c/o trouble swallowing liquids/solids. Dietitian to Monitor: Lab values, Supplement acceptance, Intake & Output, Diet tolerance, Weight change, PO Intake, Medical course
[2018-03-11] MEDS ORDERED: CARBOPLATIN IV.SIG ONE (13:00)
[2018-03-11] MEDS ORDERED: SODIUM CHLOR 0.9% IV.SIG ONE ×2 (13:00→13:30)
[2018-03-11] MEDS ORDERED: Sodium Chlor 0.9% Inj 250 ML IV.SIG SCH (13:00)
[2018-03-11] MEDS ORDERED: ETOPOSIDE IV.SIG ONE (13:30)
--- NOTE | 2018-03-11 15:22 | P.PN ---
Physical Exam Vital signs: Vital Signs 03/10/18 15:44 03/10/18 16:28 03/10/18 20:00 Temperature 98.1 F 97.7 F Pulse Rate 97 H 103 H 103 H Respiratory Rate 18 Blood Pressure 160/100 H 145/92 H Pulse Oximetry 97 98 03/11/18 00:00 03/11/18 04:00 03/11/18 07:00 Temperature 97.5 F L 96.8 F L Pulse Rate 120 H 95 H 108 H Respiratory Rate 16 Blood Pressure 154/103 H 174/104 H Pulse Oximetry 95 98 03/11/18 09:26 03/11/18 09:48 03/11/18 10:40 Temperature 97.6 F Pulse Rate 105 H Respiratory Rate 18 18 18 Blood Pressure 144/95 H Pulse Oximetry 98 03/11/18 11:00 03/11/18 11:26 03/11/18 13:21 Temperature 98 F Pulse Rate 96 H 90 Respiratory Rate 18 18 Blood Pressure 150/94 H Pulse Oximetry 97 03/11/18 15:15 Temperature 97.9 F Pulse Rate 112 H Respiratory Rate 18 Blood Pressure 141/97 H Pulse Oximetry 98 Intake & Output 03/10/18 03/11/18 03/11/18 18:59 06:59 18:59 Intake Total 800 / 800 100 / 100 100 / 100 Balance 800 / 800 100 / 100 100 / 100 Weight 55.4 kg Intake: IV 100 / 100 100 / 100 100 / 100 Zosyn 3.375 GM Premix 50 ML @ 100 / 100 100 / 100 100 / 100 100 mls/hr IV.SIG Q6H SUSIE Rx#: [id number] Oral 700 / 700 Other: # Voids 6 Date of Last Bowel Movement 03/10/18 03/10/18 03/11/18 # Bowel Movements 2 Narrative: Subjective F/up multiple medical problems. Afib with rvr. RLL mass, AF, brain mass, small cell CA likely with brain mets. Edema Edema in his legs and scrotum is improving. Denies having any chest pain. With some shortness of breath however he is saturating well on room air at this time. No fever or chills. Productive cough no blood in it. Plan to start chemo and radiation. Physical exam General: Patient is a very pleasant 62-year-old male, ambulating in the room. Respiratory: Decreased breath sounds. Some sob. Cardiovascular: normal rate and rhythm. No murmurs appreciated GI/abdomen: Soft, nontender, bowel sounds present Extremities: Warm bilaterally, bilateral LE edema and scrotal edema improving. Neuro: Grossly normal CN. No sensory deficit. Normal speech. Motor function grossly normal. Assessment and Plan Mr. Mendez is a 62 yo M who presented with chest pain and shortness of breath; patient found to have A fib with RVR with signs of sepsis. Pulmonary and brain lesions suspicious for malignancy on imaging. Patient had BAL and lung biopsy by pulm. Lung biopsy with small cell lung CA. Oncology consulted. Afib with RVR initially; patient titrated off of amiodarone and is currently rate controlled with Metoprolol -Continue daily Metoprolol 25mg BID, PRN metoprolol IV -Continue telemetry. 2D ECHO reviewed with Systolic CHF with ED of 40% -Initiate anticoagulation following bronchoscopy when cleared by pulm , gi and hem/onc. 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 Presented with Right lower lobe density concerning for malignancy. Chronic COPD. Suspect malignancy/metastatic disease w/ post-obstructive pneumonia Weaned to RA Had Bronch Obstructing mass at RLL bronchus and Lung bx SSLC -Will empirically treat for pneumonia-Zosyn -Continue Hydrocotisone 100mg IV qhrs. Titrated. -Pulmonology consulted-s/p Bronchoscopy, ff -Continue to monitor O2 saturations. 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 A bronchoscopy and biopsy of right lower lobe lung mass showed small cell lung carcinoma. CT abdomen and pelvis did not show obvious metastatic disease. Plan for bone scan to evaluate his back pain to see if he has any metastatic disease in the bone. I told the patient he has stage IV metastatic lung cancer and it is not a curable disease. Palliative chemotherapy and radiation will likely prolong his survival by several months. 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 Met septic criteria on admission (HR 130, WBC 28.5K) with suspected pulmonary source. Lactic acid 3 initially. s/p IV hydration and pressure support -Continue to monitor CBC/leukocytosis while treating suspected sepsis/pneumonia -Continue monitor blood cultures (negative to date) Hepatomegaly and acalculous cholecystis Hep C CT imaging with suggestion of hepatomegaly and acalculous cholecystis. Associated LFT's with mild transaminase elevations. Hep C antibody +. Hep C can be addressed as outpatient. US gallbladder- thickening of gallbladder wall to 9mm suggestive of disease, increased echogenicity of parenchyma suggestive of fatty infiltration or other liver disease -GI consulted -initial plan for liver biopsy deferred due to bronchoscopy/biopsy. Possibly infection related vs drug induced due to IVDU -monitor labs, supportive care. Liver workup. Chronic pain -Continue Oxycodone 30mg q4hrs PRN -Morphine increased to 6mg IV q 4hrs PRN LE edema, scrotal edema. Recent Doppler US legs is neg. Contiue daily pO lasix 40 mg and monitor kidney function and UOP closely. Repeat BMP . 2D ECHO reviewed with Systolic CHF with ED of 40% DVT PPX -SCD's - Lovenox Code Status: Full code DC plan Biopsy results with small cell lung carcinoma, oncology consulted. Port placement and plan for radiation Pending improvement and clearance by consultants Results - Labs CBC & Chem 7: 03/11/18 07:40 03/11/18 04:55 Laboratory Results - last 24 hr 03/11/18 03/11/18 03/11/18 04:55 04:55 07:40 WBC 12.2 H RBC 4.51 Hgb 12.1 L Hct 36.6 L MCV 81.3 MCH 26.8 L MCHC 33.0 RDW 17.6 H Plt Count 408 MPV 8.1 Neut % (Auto) 83.6 H Lymph % (Auto) 9.4 Gregory % (Auto) 6.6 Eos % (Auto) 0.3 Baso % (Auto) 0.1 Neut # (Auto) 10.2 H Lymph # (Auto) 1.2 Gregory # (Auto) 0.8 Eos # (Auto) 0.0 Baso # (Auto) 0.0 WBC Differential . Differential Comment Auto diff final Sodium 139 Potassium 2.6 L* Chloride 90 L Carbon Dioxide 42.5 H Anion Gap 7 BUN 21 H Creatinine 0.74 Estimated GFR Greater than 89 Random Glucose 98 Calcium 8.4 L Magnesium 1.9 Microbiology 07/20/18 11:54 Bronchial Washings - Right Acid Fast Bacilli Smear - Final No acid fast bacilli seen 03/04/18 11:54 Bronchial Washings - Right Mycobacterial Culture - Preliminary No growth in 1 week 03/04/18 12:09 Bronchial Washings - Right Fungal Smear - Final No fungal elements seen 03/04/18 12:09 Bronchial Washings - Right Fungal Culture - Preliminary No growth in 1 week
[2018-03-12] MEDS: Morphine Inj 4 MG/ML Vial IV.PUSH PRN ×6 (00:33→20:25)
[2018-03-12] MEDS: Piperacil/Tazo 3.375 GM Premix 50 ML IV.SIG SCH ×4 (03:05→20:28)
[2018-03-12 05:40] LABS: Baso % (Auto) 0.1 % (0.0-2.0); Eos % (Auto) 0.2 % (0.0-4.0); Hematocrit 38.5 % (39.0-51.0); Hemoglobin 12.1 gm/dL (13.0-17.0); Lymph % (Auto) 5.3 % (9.0-44.0); Mean Corpuscular HGB Conc 31.5 % (32.0-36.0); Mean Corpuscular Hemoglobin 25.8 pg (27.0-34.0); Mean Corpuscular Volume 81.7 fL (80.0-100.0); Mono # (Auto) 0.8 th/mm3 (0.0-0.9); Mono % (Auto) 4.4 % (0.0-8.0); Neut # (Auto) 16.5 th/mm3 (1.8-7.7); Platelet Count 420 th/mm3 (150-450); Red Blood Count 4.71 mil/mm3 (4.50-5.90); Red Cell Distribution Width 18.4 % (11.6-17.2); White Blood Count 18.4 th/mm3 (4.0-11.0)
[2018-03-12 05:57] LABS: Albumin 2.2 g/dL (3.4-5.0); Anion Gap 8 meq/L (5-15); Aspartate Aminotransferase 25 U/L (15-37); Blood Urea Nitrogen 26 mg/dL (7-18); Calcium 8.2 mg/dL (8.5-10.1); Carbon Dioxide 39.4 meq/L (21.0-32.0); Chloride 92 meq/L (98-107); Glomerular Filtration Rate 89 mL/min (>89); Glucose,Random 103 mg/dL (74-106); Potassium 3.1 meq/L (3.5-5.1); Sodium 139 meq/L (136-145); Uric Acid 2.8 mg/dl (2.6-7.2)
[2018-03-12 05:58] LABS: Alanine Aminotransferase 36 U/L (12-78)
[2018-03-12 06:00] LABS: Alkaline Phosphatase 86 U/L (45-117); Total Protein 6.1 g/dL (6.4-8.2)
[2018-03-12] MEDS: Metoprolol Tartrate 25 MG Tablet PO SCH (08:45)
[2018-03-12] MEDS: Hydrocortisone Sod Succinate 100 MG Vial IV.PUSH SCH ×2 (08:45→20:25)
[2018-03-12] MEDS: Pantoprazole Inj 40 MG Vial IV.PUSH SCH (08:45)
[2018-03-12] MEDS: Senna/Docusate Sodium 8.6/50 MG Tablet PO SCH ×2 (08:46→20:27)
[2018-03-12] MEDS: Docusate Sodium 100 MG Capsule PO SCH ×2 (08:46→20:24)
[2018-03-12] MEDS: Enoxaparin Inj 40 MG/0.4 ML Syringe SQ SCH (08:47)
--- NOTE | 2018-03-12 09:27 | P.PN ---
Physical Exam Vital signs: Vital Signs 03/11/18 09:48 03/11/18 10:40 03/11/18 11:00 Temperature Pulse Rate 96 H Respiratory Rate 18 18 Blood Pressure Pulse Oximetry 03/11/18 11:26 03/11/18 13:21 03/11/18 15:15 Temperature 98 F 97.9 F Pulse Rate 90 112 H Respiratory Rate 18 18 18 Blood Pressure 150/94 H 141/97 H Pulse Oximetry 97 98 03/11/18 18:42 03/11/18 20:00 03/11/18 20:14 Temperature 98.0 F Pulse Rate 124 H 121 H Respiratory Rate 18 18 Blood Pressure 157/106 H Pulse Oximetry 96 03/12/18 00:00 03/12/18 00:13 03/12/18 00:32 Temperature 97.9 F Pulse Rate 110 H 106 H Respiratory Rate 18 16 Blood Pressure 137/77 Pulse Oximetry 97 03/12/18 04:00 03/12/18 04:38 03/12/18 08:17 Temperature 97.6 F 97.7 F Pulse Rate 102 H 117 H 117 H Respiratory Rate 18 18 Blood Pressure 139/100 H 155/98 H Pulse Oximetry 98 98 Intake & Output 03/11/18 03/12/18 03/12/18 18:59 06:59 18:59 Intake Total 1355 / 1355 100 / 100 Output Total 350 / 350 Balance 1005 / 1005 100 / 100 Weight 52.3 kg Intake: IV 155 / 155 100 / 100 Decadron Inj 20 MG In NS Inj 50 55 / 55 ML @ 220 mls/hr IV.SIG ONCE ONE Rx#:[id number] Zosyn 3.375 GM Premix 50 ML @ 100 / 100 100 / 100 100 mls/hr IV.SIG Q6H SUSIE Rx#: [id number] Oral 1200 / 1200 Output: Urine 350 / 350 Other: # Voids 5 2 Date of Last Bowel Movement 03/11/18 03/11/18 # Bowel Movements 2 1 Narrative: Subjective F/up multiple medical problems. Afib with rvr. RLL mass, AF, brain mass, small cell CA likely with brain mets. Edema Edema in his legs and scrotum is improving. He was however complaining of some chest pain earlier today. Discussed with Mrs. food will check troponin do EKG. Also this was seen with 6 beats of V. tach on telemetry. Her potassium is low replaced. Keep potassium more than 4 and magnesium more than 2. Increase daily potassium. With some shortness of breath however he is saturating well on room air at this time. No fever or chills. Nonproductive cough. Plan to start chemo and radiation. Physical exam General: Patient is a very pleasant 62-year-old male, ambulating in the room. Respiratory: Decreased breath sounds. Some sob. Cardiovascular: normal rate and rhythm. No murmurs appreciated GI/abdomen: Soft, nontender, bowel sounds present Extremities: Warm bilaterally, bilateral LE edema and scrotal edema improving. Neuro: Grossly normal CN. No sensory deficit. Normal speech. Motor function grossly normal. Assessment and Plan Mr. Mendez is a 62 yo M who presented with chest pain and shortness of breath; patient found to have A fib with RVR with signs of sepsis. Pulmonary and brain lesions suspicious for malignancy on imaging. Patient had BAL and lung biopsy by pulm. Lung biopsy with small cell lung CA. Oncology consulted. Afib with RVR initially; patient titrated off of amiodarone and is currently rate controlled with Metoprolol -Continue daily Metoprolol 25mg BID, PRN metoprolol IV -Continue telemetry. 2D ECHO reviewed with Systolic CHF with ED of 40-45% -Initiate anticoagulation following bronchoscopy when cleared by pulm , gi and hem/onc. Patient with small cell ca with mets to occipital lobe 03/12 Complained of chest pain earlier today noted witj 6 beats of Vtach , K is low replaced. Do EKG and check trops. 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 Presented with Right lower lobe density concerning for malignancy. Chronic COPD. Suspect malignancy/metastatic disease w/ post-obstructive pneumonia Weaned to RA Had Bronch Obstructing mass at RLL bronchus and Lung bx SSLC -Will empirically treat for pneumonia-Zosyn -Continue Hydrocotisone 100mg IV qhrs. Titrated. -Pulmonology consulted-s/p Bronchoscopy, ff -Continue to monitor O2 saturations. 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 A bronchoscopy and biopsy of right lower lobe lung mass showed small cell lung carcinoma. CT abdomen and pelvis did not show obvious metastatic disease. Plan for bone scan to evaluate his back pain to see if he has any metastatic disease in the bone. I told the patient he has stage IV metastatic lung cancer and it is not a curable disease. Palliative chemotherapy and radiation will likely prolong his survival by several months. 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 Patient with small cell Ca with occipital lobe mets Met septic criteria on admission (HR 130, WBC 28.5K) with suspected pulmonary source. Lactic acid 3 initially. s/p IV hydration and pressure support -Continue to monitor CBC/leukocytosis while treating suspected sepsis/pneumonia -Continue monitor blood cultures (negative to date) Hepatomegaly and acalculous cholecystis Hep C CT imaging with suggestion of hepatomegaly and acalculous cholecystis. Associated LFT's with mild transaminase elevations. Hep C antibody +. Hep C can be addressed as outpatient. US gallbladder- thickening of gallbladder wall to 9mm suggestive of disease, increased echogenicity of parenchyma suggestive of fatty infiltration or other liver disease -GI consulted -initial plan for liver biopsy deferred due to bronchoscopy/biopsy. Possibly infection related vs drug induced due to IVDU -monitor labs, supportive care. Liver workup. Chronic pain -Continue Oxycodone 30mg q4hrs PRN -Morphine increased to 6mg IV q 4hrs PRN LE edema, scrotal edema. Recent Doppler US legs is neg. Contiue daily pO lasix 40 mg and monitor kidney function and UOP closely. Repeat BMP . 2D ECHO reviewed with Systolic CHF with ED of 40% DVT PPX -SCD's - Lovenox Code Status: Full code DC plan Biopsy results with small cell lung carcinoma, oncology consulted. Port placement and plan for radiation Pending improvement and clearance by consultants Results - Labs CBC & Chem 7: 03/12/18 04:30 03/12/18 04:30 Laboratory Results - last 24 hr 03/11/18 03/12/18 03/12/18 04:55 04:30 04:30 WBC 18.4 H D RBC 4.71 Hgb 12.1 L Hct 38.5 L MCV 81.7 MCH 25.8 L MCHC 31.5 L RDW 18.4 H Plt Count 420 MPV 8.0 Neut % (Auto) 90.0 H Lymph % (Auto) 5.3 L [place] % (Auto) 4.4 Eos % (Auto) 0.2 Baso % (Auto) 0.1 Neut # (Auto) 16.5 H Lymph # (Auto) 1.0 [place] # (Auto) 0.8 Eos # (Auto) 0.0 Baso # (Auto) 0.0 WBC Differential . Differential Comment Auto diff final Sodium 139 Potassium 3.1 L Chloride 92 L Carbon Dioxide 39.4 H Anion Gap 8 BUN 26 H Creatinine 0.87 Estimated GFR 89 Random Glucose 103 Uric Acid 2.8 Calcium 8.2 L Magnesium 1.9 Total Bilirubin 0.3 AST 25 ALT 36 Alkaline Phosphatase 86 Total Protein 6.1 L D Albumin 2.2 L Microbiology 03/04/18 11:54 Bronchial Washings - Right Acid Fast Bacilli Smear - Final No acid fast bacilli seen 03/04/18 11:54 Bronchial Washings - Right Mycobacterial Culture - Preliminary No growth in 1 week 03/04/18 12:09 Bronchial Washings - Right Fungal Smear - Final No fungal elements seen 03/04/18 12:09 Bronchial Washings - Right Fungal Culture - Preliminary No growth in 1 week
[2018-03-12] MEDS ORDERED: Magnesium Oxide 400 MG Tablet PO ONE (11:09)
--- NOTE | 2018-03-12 11:14 | P.PNONC ---
Subjective Interval history: Afebrile overnight. The patient is lying in bed upon approach. The patient states that he does not feel good. He reports that he is having chest pain, he reports this as a new feeling, "different than before" and an overall "I just do not feel good, I need to stand up and walk around." Simultaneously, SCOOBY Castillo entered the room and reported that the patient just had an 8 beat run of VT on his debt recovery officer. I asked the patient to not stand up at this time, given this arrhythmia. The patient then reported that upon sitting, from the lying position, he no longer is having chest pain and he feels better. He adamantly denies any continuing symptoms. He states that it was just because he was lying flat and whenever he gets up and walks around he feels 100% better. The patient was questioned in regards to his difficulty swallowing, and that was reported to the dietitian, he states that today he is swallowing much better and he is relating it to the start of the chemotherapy yesterday. Objective Vital Signs/Intake & Output: Vital Signs 03/11/18 11:00 03/11/18 11:26 03/11/18 13:21 Temperature 98 F Pulse Rate 96 H 90 Respiratory Rate 18 18 Blood Pressure 150/94 H Pulse Oximetry 97 03/11/18 15:15 03/11/18 18:42 03/11/18 20:00 Temperature 97.9 F 98.0 F Pulse Rate 112 H 124 H Respiratory Rate 18 18 18 Blood Pressure 141/97 H 157/106 H Pulse Oximetry 98 96 03/11/18 20:14 03/12/18 00:00 03/12/18 00:13 Temperature 97.9 F Pulse Rate 121 H 110 H 106 H Respiratory Rate 18 Blood Pressure 137/77 Pulse Oximetry 97 03/12/18 00:32 03/12/18 04:00 03/12/18 04:38 Temperature 97.6 F Pulse Rate 102 H 117 H Respiratory Rate 16 18 Blood Pressure 139/100 H Pulse Oximetry 98 03/12/18 08:17 Temperature 97.7 F Pulse Rate 117 H Respiratory Rate 18 Blood Pressure 155/98 H Pulse Oximetry 98 Intake & Output 03/11/18 03/12/18 03/12/18 18:59 06:59 18:59 Intake Total 1355 / 1355 100 / 100 Output Total 350 / 350 Balance 1005 / 1005 100 / 100 Weight 52.3 kg Intake: IV 155 / 155 100 / 100 Decadron Inj 20 MG In NS Inj 50 55 / 55 ML @ 220 mls/hr IV.SIG ONCE ONE Rx#:[id number] Zosyn 3.375 GM Premix 50 ML @ 100 / 100 100 / 100 100 mls/hr IV.SIG Q6H SUSIE Rx#: [id number] Oral 1200 / 1200 Output: Urine 350 / 350 Other: # Voids 5 2 Date of Last Bowel Movement 03/11/18 03/11/18 # Bowel Movements 2 1 Result Diagrams: 03/12/18 04:30 03/12/18 04:30 Laboratory Results: Laboratory Results - last 24 hr 03/12/18 03/12/18 04:30 04:30 WBC 18.4 H D RBC 4.71 Hgb 12.1 L Hct 38.5 L MCV 81.7 MCH 25.8 L MCHC 31.5 L RDW 18.4 H Plt Count 420 MPV 8.0 Neut % (Auto) 90.0 H Lymph % (Auto) 5.3 L [place] % (Auto) 4.4 Eos % (Auto) 0.2 Baso % (Auto) 0.1 Neut # (Auto) 16.5 H Lymph # (Auto) 1.0 [place] # (Auto) 0.8 Eos # (Auto) 0.0 Baso # (Auto) 0.0 WBC Differential . Differential Comment Auto diff final Sodium 139 Potassium 3.1 L Chloride 92 L Carbon Dioxide 39.4 H Anion Gap 8 BUN 26 H Creatinine 0.87 Estimated GFR 89 Random Glucose 103 Uric Acid 2.8 Calcium 8.2 L Total Bilirubin 0.3 AST 25 ALT 36 Alkaline Phosphatase 86 Total Protein 6.1 L D Albumin 2.2 L Culture Results: Microbiology 03/04/18 11:54 Acid Fast Bacilli Smear - Final Bronchial Washings - Right No acid fast bacilli seen Mycobacterial Culture - Preliminary No growth in 1 week 03/04/18 12:09 Fungal Smear - Final Bronchial Washings - Right No fungal elements seen Fungal Culture - Preliminary No growth in 1 week Medications: Active Medications Generic Name Dose Route Start Last Admin Trade Name Freq PRN Reason Stop Dose Admin Albuterol 1 ampul 03/02/18 00:41 03/07/18 05:04 Duoneb Neb (Prn) NEB 1 ampul Q2HR NEB PRN Administration WHEEZING Docusate Sodium 100 mg 03/03/18 10:00 03/12/18 08:46 Colace PO 100 mg BID SUSIE Administration Enoxaparin Sodium 40 mg 03/08/18 09:00 03/12/18 08:47 Lovenox Inj SQ 40 mg DAILY SUSIE Administration Furosemide 40 mg 03/07/18 18:00 03/11/18 17:10 Lasix PO 40 mg BID@0900,1800 SUSIE Administration Granisetron HCl 1 mg 03/11/18 12:30 03/11/18 12:47 Kytril Inj IV.PUSH 03/13/18 12:31 1 mg DAILY@1230 SUSIE Administration Hydrocortisone Sodium Succinate 100 mg 03/10/18 09:00 03/12/18 08:45 Solucortef Inj IV.PUSH 100 mg Q12HR SUSIE Administration Piperacillin/Tazobactam/Dextrose 50 mls @ 100 mls/hr 03/09/18 20:00 03/12/18 08:45 Zosyn 3.375 Gm Premix IV.SIG 200 mls/hr Q6H SUSIE Administration Metoprolol Tartrate 25 mg 03/03/18 10:00 03/12/18 08:45 Lopressor PO 25 mg BID SUSIE Administration Morphine Sulfate 6 mg 03/11/18 12:20 03/12/18 09:55 Morphine Inj IV.PUSH 6 mg Q3H PRN Administration PAIN 6-10;IF UNABLE TO TAKE PO Ondansetron HCl 4 mg 03/02/18 00:41 03/03/18 09:20 Zofran Inj IV.PUSH 4 mg Q6H PRN Administration NAUSEA OR VOMITING Oxycodone HCl 30 mg 03/03/18 10:00 03/12/18 08:46 Roxicodone PO 30 mg Q4H PRN Administration SEE LABEL COMMENTS Pantoprazole Sodium 40 mg 03/02/18 09:00 03/12/18 08:45 Protonix Inj IV.PUSH 40 mg DAILY SUSIE Administration Potassium Chloride 10 meq 03/09/18 09:00 03/12/18 08:46 Klor-Con 10 PO 10 meq DAILY SUSIE Administration Senna/Docusate Sodium 1 tab 03/02/18 09:00 03/12/18 08:46 Heather-Colace PO 1 tab BID SUSIE Administration Sodium Chloride 2 ml 03/02/18 09:00 03/12/18 08:47 Ns Flush IV.FLUSH 2 ml BID SUSIE Administration Sodium Chloride 2 ml 03/02/18 00:41 03/04/18 21:33 Ns Flush IV.FLUSH 2 ml PRN PRN Administration FLUSH AFTER USING IV ACCESS Objective Remarks: GENERAL: Ill-appearing, middle-aged male patient. In no acute distress. Lying in bed on approach. SKIN: Warm and dry. Steri-Strips to right superior collarbone, dry/intact. Right chest wall port access, dressing dry/intact. No drainage noted. HEAD: Normocephalic. EYES: No scleral icterus. No injection or drainage. PERRLA. NECK: Supple, trachea midline. CARDIOVASCULAR: Irregularly irregular rhythm without murmurs, rate controlled. RESPIRATORY: Posterior breath sounds diminished, right base absent. No accessory muscle use. O2 via nasal cannula. GASTROINTESTINAL: Abdomen soft, non-tender, nondistended. EXTREMITIES: No cyanosis, or edema. MUSCULOSKELETAL: Adequate muscle tone. NEUROLOGICAL: No obvious focal deficit. Awake, alert, and oriented x3. PSYCHIATRIC: Agitated. Assessment/Plan - Plan A/P: 1. Metastatic small cell lung carcinoma. He started developing constitutional symptoms about 6 months ago. He has lost about 58 pounds. He has increased weakness. He developed chest pain and shortness of breath that was progressively getting worse. On admission, a CT angiogram of the chest showed a large right lower lobe obstructing mass causing partial collapse of the right lung. There were also multiple pleural and subpleural nodules in the right lung that measured up to [address] of the head shows suspicious lesion in the left occipital lobe and subsequent MRI showed an 8 mm mass in the subependymal region of posterior horn of the left lateral ventricle. A bronchoscopy and biopsy of right lower lobe lung mass showed small cell lung carcinoma. CT abdomen and pelvis did not show obvious metastatic disease. At this time, I would recommend getting a bone scan to evaluate his back pain to see if he has any metastatic disease in the bone. I told the patient he has stage IV metastatic lung cancer and it is not a curable disease. Palliative chemotherapy and radiation will likely prolong his survival by several months. We discussed the pros and cons of treatment versus supportive care. The patient stated that he wants to be as aggressive as possible at this time. He was rather shocked with the diagnosis. I told him he is going to eventually need radiation to the brain mass. However, given the large right lung mass and his symptoms, I think he should have systemic palliative chemotherapy first. He likely could receive stereotactic radiation to the brain mass in between the chemotherapy. I will discuss further with radiation oncologist. March 09, 2018: Another discussion with patient and his questions were answered. Arrange for bone scan. Consult radiology for port placement. Consult nursing for chemotherapy teaching. March 10, 2018: Review bone scan with patient which was negative for metastatic disease in the bone. Plan to treat him with carboplatin and etoposide starting tomorrow. Explained the potential side effect of patient, He is going to have chemotherapy teaching.aa 03/11/18: Chemotherapy treatment ordered to start today. Carbo/etoposide. 03/12/18: D2 Carbo/etoposide. Afebrile. 8-beat run of VT on debt recovery officer. reports of chest pain, relieved with position change. 2. Atrial fibrillation, now rate controlled. On Eliquis. 3. Ventricular tachycardia, 8 beat run at 1028 today. This was discussed with the patient's attending Dr. Wood. The patient has an EF of 40-45%. Cardiology is not following at this time. We will consult cardiology. We will replace his potassium and magnesium. We will obtain an EKG and troponin levels. 4. Hepatitis C was newly diagnosed. 5. Postobstructive pneumonia. He remains afebrile. Cultures are negative. Continue antibiotics. - Attending Statement The exam, history, and the medical decision-making described in the above note were completed with the assistance of the mid-level provider. I reviewed and agree with the findings presented. I attest that I had a [id number] encounter with the patient on the same day, and personally performed and documented my assessment and findings in the medical record. Patient seen and examined, vital signs, labs, medications all reviewed. Physical exam performed independently. Patient with diagnosis of extensive stage small cell carcinoma of the lung with a solitary ring-enhancing lesion involving the left occipital parietal lobe of the brain. The tumors bulk involves the lower lobe of the right lung. He is status post cycle 1 day 1 palliative systemic chemotherapy consisting of carboplatin and etoposide started on 03/11/2018. Earlier this morning patient had a nonsustained run of monomorphic ventricular tachycardia. Potassium level was noted to be 3.1, he felt a little uneasy at that time but became more agitated when the nursing staff came in to assess him. He tells me he does not like to have too many people "in my face". The patient was seen by cardiology, cardiology is recommended supportive care. Patient is already on a beta-zarina , optimal replacement of potassium and magnesium has been advised. I have recommended discontinuation of Zofran and kytril. Antiemetic therapy for him will now consist of metoclopramide and dexamethasone. I have advised the nursing staff to add on benzodiazepines if needed. Patient had several questions regarding prognosis, length of treatment, timing of radiation. All of which was explained to him. Okay to proceed with day 2 etoposide today.
--- NOTE | 2018-03-12 12:30 | MB ---
cc: Otoniel Santoyo MD DATE: 03/12/2018 REASON FOR CONSULTATION: Ventricular tachycardia, atrial fibrillation. HISTORY OF PRESENT ILLNESS: The patient is a 62-year-old white male with a history of opiate abuse, remote history of lymphoma, reduced ejection fraction of 40-45% by echo this admission, and hepatitis C, who initially presented to the hospital with right-sided chest pain. Further workup has revealed evidence for metastatic small cell lung cancer on the right, metastatic to the brain. Here in the hospital, he has been found to be in atrial fibrillation, initially with a rapid ventricular response. Monitoring in the last 24 hours did reveal 1 episode of nonsustained ventricular tachycardia. The patient denies palpitations, lightheadedness, syncope, and near syncope. He has mild shortness of breath at baseline. For at least the last few months, he has had a right-sided chest discomfort described as "burning", "sharp". Most recently, he has had intermittent fleeting sharp left-sided chest pains without associated shortness of breath, nausea or diaphoresis. In the last 6-8 months, he has had intermittent mild pedal edema. He denies paroxysmal nocturnal dyspnea, orthopnea, and fevers. He does report a close to 60-pound weight loss in the last year. PAST MEDICAL HISTORY: 1. Remote history of lymphoma. 2. History of opiate abuse. 3. Chronic obstructive pulmonary disease. 4. Reduced ejection fraction of 40-45% by echo 03/02/2018. 5. Hepatitis C. 6. Recently diagnosed metastatic right lung small cell cancer. PAST SURGICAL HISTORY: 1. Hernia surgery. 2. Lymph node resection from the neck. 3. History of orthopedic surgery including stefania placement in his left lower extremity. CURRENT CARDIAC MEDICATIONS: 1. Lovenox 40 mg subcutaneously daily. 2. Furosemide 40 mg p.o. b.i.d. 3. Metoprolol tartrate 25 mg p.o. b.i.d. 4. Potassium chloride 30 mEq p.o. daily. ALLERGIES: NO KNOWN DRUG ALLERGIES. FAMILY HISTORY: Noncontributory. SOCIAL HISTORY: The patient has an extensive history of tobacco abuse. He denies drug or alcohol abuse in the past few years. REVIEW OF SYSTEMS: As in the history of present illness, otherwise negative or noncontributory. He also denies headache, abdominal pain, melena, dyspepsia, and bright red blood per rectum. PHYSICAL EXAMINATION: VITAL SIGNS: Blood pressure 155/98 with a pulse of 117, respirations 18. GENERAL: He is a well-developed, thin white male, in no acute distress. NECK: Jugular venous pressure is normal. Carotid pulses are 2+ bilaterally and without bruits. CHEST: Reveals diminished breath sounds diffusely. CARDIAC: He has an irregularly irregular rhythm without S3, murmur or rub. ABDOMEN: He has a soft, nontender abdomen. Bowel sounds are present. There is no definite hepatosplenomegaly. EXTREMITIES: Reveals no clubbing, cyanosis. There is 1+ pretibial edema bilaterally negative. LABORATORY DATA: Potassium 3.1, BUN 26, creatinine 0.87. WBC 18.4, hemoglobin 12.1, platelets 420. INR 1.3. EKG from 03/12/2018 at 11:13 a.m. shows atrial fibrillation, anteroseptal infarct, age undetermined. IMPRESSION: [place] of wide complex tachycardia, newly diagnosed atrial fibrillation and mild cardiomyopathy in this 62-year-old white male with a history of hepatitis C, remote history of lymphoma, prior opiate abuse, recently diagnosed metastatic small cell lung cancer. At this time, he remains in atrial fibrillation with occasionally mildly elevated heart rates. For the most part, he is asymptomatic with the dysrhythmia. In addition, review of his monitoring strips reveals one 8-beat episode of wide complex tachycardia, the morphology of which is more consistent with ventricular tachycardia. There is no definite evidence for acute coronary syndrome. Echocardiogram reportedly reveals reduced ejection fraction of 40-45% with global hypokinesis. RECOMMENDATIONS: 1. Overall, conservative cardiac evaluation and management. 2. We will start oral amiodarone to help suppress the nonsustained ventricular tachycardia. 3. His thromboembolic risk with the atrial fibrillation, in light of his reduced ejection fraction, is moderately elevated. If there are no contraindications, would recommend anticoagulation therapy or at least a daily baby aspirin. 4. ALIS inhibitor given his reduced ejection fraction and elevated blood pressure. 5. Maintain normal potassium, magnesium levels. MD ALEXANDREA Mckay/SANDIP , 11:57 AM , 12:08 PM KATELYN
[2018-03-12] MEDS: Furosemide 40 MG Tablet PO SCH ×2 (13:22→17:31)
[2018-03-12] MEDS: Dexamethasone Inj 10 MG in Sodium Chlor 0.9% Inj 50 ML IV.SIG SCH (13:24)
[2018-03-12] MEDS: Metoprolol Tartrate 50 MG Tablet PO SCH ×2 (13:32→20:24)
[2018-03-12] MEDS: Granisetron 1 MG/ML Vial IV.PUSH SCH (13:33)
[2018-03-12] MEDS: ETOPOSIDE IV.SIG SCH (14:29)
[2018-03-12] MEDS: SODIUM CHLOR 0.9% IV.SIG SCH (14:29)
--- NOTE | 2018-03-12 14:39 | ECG ---
Date Performed: 03/12/2018 Time Performed: 11:13:36 PTAGE: 62 years EKG: ATRIAL FIBRILLATION ANTEROSEPTAL MYOCARDIAL INFARCTION , OF INDETERMINATE AGE Since previou s tracing, no significant change noted ABNORMAL ECG PREVIOUS TRACING : 03/01/2018 20.37 DOCTOR: Kristofer Delarosa Interpretating Date/Time 03/12/2018 14:36:59
[2018-03-12] MEDS: Lisinopril 10 MG Tablet PO SCH (20:24)
[2018-03-12] MEDS: Amiodarone 200 MG Tablet PO SCH (20:24)
[2018-03-13] MEDS: Morphine Inj 4 MG/ML Vial IV.PUSH PRN ×6 (00:36→21:37)
[2018-03-13] MEDS: Piperacil/Tazo 3.375 GM Premix 50 ML IV.SIG SCH ×4 (01:55→19:52)
[2018-03-13 05:43] LABS: Baso % (Auto) 0.1 % (0.0-2.0); Eos % (Auto) 0.2 % (0.0-4.0); Hematocrit 36.3 % (39.0-51.0); Hemoglobin 11.4 gm/dL (13.0-17.0); Lymph # (Auto) 1.3 th/mm3 (1.0-4.8); Lymph % (Auto) 7.7 % (9.0-44.0); Mean Corpuscular HGB Conc 31.3 % (32.0-36.0); Mean Corpuscular Hemoglobin 25.8 pg (27.0-34.0); Mean Corpuscular Volume 82.3 fL (80.0-100.0); Mean Platelet Volume 7.9 fL (7.0-11.0); Mono # (Auto) 0.8 th/mm3 (0.0-0.9); Mono % (Auto) 4.9 % (0.0-8.0); Neut # (Auto) 14.5 th/mm3 (1.8-7.7); Neut % (Auto) 87.1 % (16.0-70.0); Platelet Count 402 th/mm3 (150-450); Red Blood Count 4.41 mil/mm3 (4.50-5.90); Red Cell Distribution Width 17.9 % (11.6-17.2); White Blood Count 16.6 th/mm3 (4.0-11.0)
[2018-03-13 05:45] LABS: Albumin 2.2 g/dL (3.4-5.0); Anion Gap 5 meq/L (5-15); Aspartate Aminotransferase 26 U/L (15-37); Blood Urea Nitrogen 26 mg/dL (7-18); Calcium 7.9 mg/dL (8.5-10.1); Carbon Dioxide 39.2 meq/L (21.0-32.0); Chloride 95 meq/L (98-107); Glomerular Filtration Rate Greater Than 89 mL/min (>89); Glucose,Random 97 mg/dL (74-106); Magnesium 1.7 mg/dL (1.5-2.5); Potassium 3.1 meq/L (3.5-5.1); Sodium 139 meq/L (136-145)
[2018-03-13 05:48] LABS: Alanine Aminotransferase 37 U/L (12-78); Alkaline Phosphatase 68 U/L (45-117); Total Protein 5.8 g/dL (6.4-8.2)
[2018-03-13] MEDS: Furosemide 40 MG Tablet PO SCH ×2 (08:55→17:45)
[2018-03-13] MEDS: Metoprolol Tartrate 50 MG Tablet PO SCH (08:56)
[2018-03-13] MEDS: Amiodarone 200 MG Tablet PO SCH ×2 (08:56→20:00)
[2018-03-13] MEDS: Pantoprazole Inj 40 MG Vial IV.PUSH SCH (08:57)
[2018-03-13] MEDS: Hydrocortisone Sod Succinate 100 MG Vial IV.PUSH SCH ×2 (08:57→20:01)
[2018-03-13] MEDS: Lisinopril 10 MG Tablet PO SCH ×2 (08:57→20:00)
[2018-03-13] MEDS: Senna/Docusate Sodium 8.6/50 MG Tablet PO SCH ×3 (08:57→20:01)
[2018-03-13] MEDS: Docusate Sodium 100 MG Capsule PO SCH ×3 (08:57→20:01)
[2018-03-13] MEDS: Enoxaparin Inj 40 MG/0.4 ML Syringe SQ SCH (08:58)
--- NOTE | 2018-03-13 10:57 | P.PNCA ---
Subjective Interval history: Denies palpitations, dizziness, CP, SOB, nausea. Complains of head pressure Physical Exam Vital signs: Vital Signs 03/12/18 12:00 03/12/18 16:00 03/12/18 20:00 Temperature 97.5 F L 98.7 F Pulse Rate 95 H 103 H 95 H Respiratory Rate 16 18 Blood Pressure 151/94 H 141/100 H Pulse Oximetry 97 98 03/13/18 00:00 03/13/18 04:00 03/13/18 04:06 Temperature 98.7 F 97.8 F Pulse Rate 96 H 86 91 H Respiratory Rate 16 16 Blood Pressure 143/97 H 158/96 H Pulse Oximetry 98 99 03/13/18 09:03 Temperature 97.9 F Pulse Rate 95 H Respiratory Rate 16 Blood Pressure 151/91 H Pulse Oximetry 98 Intake & Output 03/12/18 03/13/18 03/13/18 18:59 06:59 18:59 Intake Total 1350 / 1350 660.6 / 660.6 50 / 50 Balance 1350 / 1350 660.6 / 660.6 50 / 50 Weight 52.9 kg Intake: IV 150 / 150 660.6 / 660.6 50 / 50 Decadron Inj 10 MG In NS Inj 50 52.5 / 52.5 ML @ 210 mls/hr IV.SIG DAILY@ 1230 [facility] Rx#:[id number] Vepesid Inj 162 MG In NS Inj 508.1 / 508.1 500 ML @ 508.1 mls/hr IV.SIG DAILY@1300 [facility] Rx#:[id number] Zosyn 3.375 GM Premix 50 ML @ 150 / 150 100 / 100 50 / 50 100 mls/hr IV.SIG Q6H [facility] Rx#: [id number] Oral 1200 / 1200 Other: # Voids 5 Date of Last Bowel Movement 03/12/18 # Bowel Movements 1 - Constitutional mild distress - Routine Neck Exam Absent: JVD - Routine Respiratory Exam Present: decreased breath sounds - Routine Cardiovascular Exam Present: S1, S2, irregularly irregular. Absent: murmur, gallop - Routine Abdominal Exam Present: soft, normoactive bowel sounds. Absent: tenderness, organomegaly - Routine Extremities Exam Present: edema. Absent: cyanosis, clubbing Comments: 1+ pretibial edema Assessment and Plan - Assessment (1) Nonsustained ventricular tachycardia Code(s): I47.2 - Ventricular tachycardia Status: Acute Plan: Stable overnight. No further nonsustained VT. Continue oral Amiodarone. (2) Paroxysmal atrial fibrillation Code(s): I48.0 - Paroxysmal atrial fibrillation Status: Acute Plan: Remains in atrial fib. HR's mostly controlled. Recommend increase metoprolol further. (3) Cardiomyopathy Code(s): I42.9 - Cardiomyopathy, unspecified Status: Chronic Plan: Overall stable. Compensated. EF reportedly 40-45% by echo 03/02/18. Recommend increase beta zarina, continue ALIS-I, consider change to IV furosemide to help mobilize his pedal edema. Will review echo images. - Plan Code Status: full code Discussed Condition With: patient (3) Cardiomyopathy Qualifiers: Cardiomyopathy type: unspecified Qualified Code(s): I42.9 - Cardiomyopathy, unspecified
--- NOTE | 2018-03-13 11:44 | P.PNONC ---
Subjective Interval history: Afebrile. Patient ambulating in his room upon approach. He is agitated today his cousin is visiting and is sitting at the bedside. The patient states that he "I don't feel good" he answers questions in 1-2 word sentences. He states that his breathing is okay and that he just needs to walk around the room for a while to start feeling better. Objective Vital Signs/Intake & Output: Vital Signs 03/12/18 12:00 03/12/18 16:00 03/12/18 20:00 Temperature 97.5 F L 98.7 F Pulse Rate 95 H 103 H 95 H Respiratory Rate 16 18 Blood Pressure 151/94 H 141/100 H Pulse Oximetry 97 98 03/13/18 00:00 03/13/18 04:00 03/13/18 04:06 Temperature 98.7 F 97.8 F Pulse Rate 96 H 86 91 H Respiratory Rate 16 16 Blood Pressure 143/97 H 158/96 H Pulse Oximetry 98 99 03/13/18 09:03 Temperature 97.9 F Pulse Rate 95 H Respiratory Rate 16 Blood Pressure 151/91 H Pulse Oximetry 98 Intake & Output 03/12/18 03/13/18 03/13/18 18:59 06:59 18:59 Intake Total 1350 / 1350 660.6 / 660.6 50 / 50 Balance 1350 / 1350 660.6 / 660.6 50 / 50 Weight 52.9 kg Intake: IV 150 / 150 660.6 / 660.6 50 / 50 Decadron Inj 10 MG In NS Inj 50 52.5 / 52.5 ML @ 210 mls/hr IV.SIG DAILY@ 1230 [facility] Rx#:[id number] Vepesid Inj 162 MG In NS Inj 508.1 / 508.1 500 ML @ 508.1 mls/hr IV.SIG DAILY@1300 [facility] Rx#:[id number] Zosyn 3.375 GM Premix 50 ML @ 150 / 150 100 / 100 50 / 50 100 mls/hr IV.SIG Q6H [facility] Rx#: [id number] Oral 1200 / 1200 Other: # Voids 5 Date of Last Bowel Movement 03/12/18 # Bowel Movements 1 Result Diagrams: 03/13/18 05:10 03/13/18 05:10 Laboratory Results: Laboratory Results - last 24 hr 0703/12/18 03/13/18 13:25 13:25 05:10 WBC 16.6 H RBC 4.41 L Hgb 11.4 L Hct 36.3 L MCV 82.3 MCH 25.8 L MCHC 31.3 L RDW 17.9 H Plt Count 402 MPV 7.9 Neut % (Auto) 87.1 H Lymph % (Auto) 7.7 L [place] % (Auto) 4.9 Eos % (Auto) 0.2 Baso % (Auto) 0.1 Neut # (Auto) 14.5 H Lymph # (Auto) 1.3 [place] # (Auto) 0.8 Eos # (Auto) 0.0 Baso # (Auto) 0.0 WBC Differential . Differential Comment Auto diff final Sodium Potassium Chloride Carbon Dioxide Anion Gap BUN Creatinine Estimated GFR Random Glucose Calcium Phosphorus 2.2 L Magnesium Total Bilirubin AST ALT Alkaline Phosphatase Troponin I 0.02 Total Protein Albumin 03/13/18 05:10 WBC RBC Hgb Hct MCV MCH MCHC RDW Plt Count MPV Neut % (Auto) Lymph % (Auto) [place] % (Auto) Eos % (Auto) Baso % (Auto) Neut # (Auto) Lymph # (Auto) [place] # (Auto) Eos # (Auto) Baso # (Auto) WBC Differential Differential Comment Sodium 139 Potassium 3.1 L Chloride 95 L Carbon Dioxide 39.2 H Anion Gap 5 BUN 26 H Creatinine 0.73 Estimated GFR Greater than 89 Random Glucose 97 Calcium 7.9 L Phosphorus Magnesium 1.7 Total Bilirubin 0.3 AST 26 ALT 37 Alkaline Phosphatase 68 Troponin I Total Protein 5.8 L Albumin 2.2 L Culture Results: Microbiology 03/04/18 11:54 Acid Fast Bacilli Smear - Final Bronchial Washings - Right No acid fast bacilli seen Mycobacterial Culture - Preliminary No growth in 1 week 03/04/18 12:09 Fungal Smear - Final Bronchial Washings - Right No fungal elements seen Fungal Culture - Preliminary No growth in 1 week Medications: Active Medications Generic Name Dose Route Start Last Admin Trade Name Freq PRN Reason Stop Dose Admin Albuterol 1 ampul 03/02/18 00:41 03/07/18 05:04 Duoneb Neb (Prn) NEB 1 ampul Q2HR NEB PRN Administration WHEEZING Amiodarone HCl 400 mg 03/12/18 21:00 03/13/18 08:56 Cordarone PO 400 mg Q12HR [facility] Administration Aspirin 81 mg 03/13/18 09:00 03/13/18 08:56 Ecotrin PO 81 mg DAILY [facility] Administration Docusate Sodium 100 mg 03/03/18 10:00 03/13/18 08:57 Colace PO 100 mg BID [facility] Administration Enoxaparin Sodium 40 mg 03/08/18 09:00 03/13/18 08:58 Lovenox Inj SQ 40 mg DAILY [facility] Administration Furosemide 40 mg 03/07/18 18:00 03/13/18 08:55 Lasix PO 40 mg BID@0900,1800 [facility] Administration Hydrocortisone Sodium Succinate 100 mg 03/10/18 09:00 03/13/18 08:57 Solucortef Inj IV.PUSH 100 mg Q12HR [facility] Administration Piperacillin/Tazobactam/Dextrose 50 mls @ 100 mls/hr 03/09/18 20:00 03/13/18 10:41 Zosyn 3.375 Gm Premix IV.SIG Infused Q6H [facility] In[facility] Dexamethasone Sodium Phosphate 52.5 mls @ 210 mls/hr 03/12/18 12:30 03/12/18 19:31 10 mg/ Sodium Chloride IV.SIG 03/13/18 12:44 Infused DAILY@1230 [facility] Etoposide 162 mg/ Sodium 508.1 mls @ 508.1 mls/hr 03/12/18 13:00 03/12/18 19: 32 Chloride IV.SIG 03/13/18 13:59 Infused DAILY@1300 [facility] Lisinopril 10 mg 03/12/18 21:00 03/13/18 08:57 Prinivil PO 10 mg BID [facility] Administration Metoprolol Tartrate 50 mg 03/12/18 12:00 03/13/18 08:56 Lopressor PO 50 mg BID [facility] Administration Morphine Sulfate 6 mg 03/11/18 12:20 03/13/18 09:02 Morphine Inj IV.PUSH 6 mg Q3H PRN Administration PAIN 6-10;IF UNABLE TO TAKE PO Oxycodone HCl 30 mg 03/03/18 10:00 03/13/18 10:52 Roxicodone PO 30 mg Q4H PRN Administration SEE LABEL COMMENTS Pantoprazole Sodium 40 mg 03/02/18 09:00 03/13/18 08:57 Protonix Inj IV.PUSH 40 mg DAILY [facility] Administration Potassium Chloride 30 meq 03/13/18 09:00 03/13/18 08:59 Klor-Con 10 PO 30 meq DAILY [facility] Administration Senna/Docusate Sodium 1 tab 03/02/18 09:00 03/13/18 08:57 Heather-Colace PO 1 tab BID [facility] Administration Sodium Chloride 2 ml 03/02/18 09:00 03/13/18 08:58 Ns Flush IV.FLUSH 2 ml BID [facility] Administration Sodium Chloride 2 ml 03/02/18 00:41 03/04/18 21:33 Ns Flush IV.FLUSH 2 ml PRN PRN Administration FLUSH AFTER USING IV ACCESS Objective Remarks: GENERAL: Ill-appearing, middle-aged male patient. In no acute distress. Ambulating in his room. SKIN: Warm and dry. Steri-Strips to right superior collarbone, dry/intact. Right chest wall port access, dressing dry/intact. No drainage noted. HEAD: Normocephalic. EYES: No scleral icterus. No injection or drainage. PERRLA. NECK: Supple, trachea midline. CARDIOVASCULAR: Irregularly irregular rhythm without murmurs, rate controlled. RESPIRATORY: Posterior breath sounds diminished, right base absent. No accessory muscle use. O2 via nasal cannula. GASTROINTESTINAL: Abdomen soft, non-tender, nondistended. EXTREMITIES: No cyanosis, or edema. MUSCULOSKELETAL: Adequate muscle tone. NEUROLOGICAL: No obvious focal deficit. Awake, alert, and oriented x3. PSYCHIATRIC: Agitated. Assessment/Plan - Plan A/P: 1. Metastatic small cell lung carcinoma. He started developing constitutional symptoms about 6 months ago. He has lost about 58 pounds. He has increased weakness. He developed chest pain and shortness of breath that was progressively getting worse. On admission, a CT angiogram of the chest showed a large right lower lobe obstructing mass causing partial collapse of the right lung. There were also multiple pleural and subpleural nodules in the right lung that measured up to [address] of the head shows suspicious lesion in the left occipital lobe and subsequent MRI showed an 8 mm mass in the subependymal region of posterior horn of the left lateral ventricle. A bronchoscopy and biopsy of right lower lobe lung mass showed small cell lung carcinoma. CT abdomen and pelvis did not show obvious metastatic disease. At this time, I would recommend getting a bone scan to evaluate his back pain to see if he has any metastatic disease in the bone. I told the patient he has stage IV metastatic lung cancer and it is not a curable disease. Palliative chemotherapy and radiation will likely prolong his survival by several months. We discussed the pros and cons of treatment versus supportive care. The patient stated that he wants to be as aggressive as possible at this time. He was rather shocked with the diagnosis. I told him he is going to eventually need radiation to the brain mass. However, given the large right lung mass and his symptoms, I think he should have systemic palliative chemotherapy first. He likely could receive stereotactic radiation to the brain mass in between the chemotherapy. I will discuss further with radiation oncologist. March 09, 2018: Another discussion with patient and his questions were answered. Arrange for bone scan. Consult radiology for port placement. Consult nursing for chemotherapy teaching. March 10, 2018: Review bone scan with patient which was negative for metastatic disease in the bone. Plan to treat him with carboplatin and etoposide starting tomorrow. Explained the potential side effect of patient, He is going to have chemotherapy teaching.aa 03/11/18: Chemotherapy treatment ordered to start today. Carbo/etoposide. 03/12/18: D2 Carbo/etoposide. Afebrile. 8-beat run of VT on cardiac exercise specialist. reports of chest pain, relieved with position change. 03/13/18: D3 Carbo/etoposide. Afebrile. No further runs of VT noted. 2. Atrial fibrillation, now rate controlled. On Eliquis. 3. Ventricular tachycardia, 8 beat run at 1028 on 03/12/2018. Cardiology was consulted and is currently following. No further episodes noted. 4. Hepatitis C was newly diagnosed. 5. Postobstructive pneumonia. He remains afebrile. Cultures are negative. Continue antibiotics. - Attending Statement The exam, history, and the medical decision-making described in the above note were completed with the assistance of the mid-level provider. I reviewed and agree with the findings presented. I attest that I had a [id number] encounter with the patient on the same day, and personally performed and documented my assessment and findings in the medical record. Mr. Mendez was seen and examined, vital signs, labs, medication and chemotherapy orders and administration reviewed. His major complaint is that of abdominal discomfort, fatigue, "floaters in the eyes "and anxiety. He denies having had significant nausea or vomiting with chemotherapy. He wants to know when the radiation to the tumor in his brain can start after chemotherapy. He also has questions regarding resumption of chemotherapy after completion of the first cycle later today. Clinical examination was performed, summary of findings indicates elderly male, sitting in a bedside chair, appears to be in no acute distress. HEENT: Head atraumatic, conjunctivae non-pale sclerae anicteric oral exam no pharyngeal erythema, dry mucous membranes next respiratory exam: Good air movement over the left upper, mid and lower lung, right lung good air movement over the upper and middle lung zones decreased lower lobe breath sounds. Cardiac: Regular rate and rhythm, S1-S2 no obvious murmurs gallops. Next abdominal exam: Thin soft nontender nondistended no palpable organ enlargement. Lotion with no pretibial edema or calf tenderness. Assessment: 61-year-old man with extensive stage/metastatic small cell lung cancer. Currently on cycle 1 day 3 palliative first-line therapy consisting of carboplatin and etoposide. Solitary brain metastasis noted on initial staging MRI of the brain, this will be treated in the outpatient setting with SRS following appropriate clearance following delivery of carboplatin. The upcoming 1-2 days he should be clear for discharge with outpatient follow- up with radiation oncology and medical oncology. No evidence of recurrent ventricular tachycardia. Appreciate cardiology input. The patient was initiated on amiodarone.
--- NOTE | 2018-03-13 12:13 | P.PNIM ---
Subjective Interval history: F/up multiple medical problems. Afib with rvr. RLL mass, AF, brain mass, small cell CA likely with brain mets. Edema Edema in his legs and scrotum is improving. He was however complaining of some chest pain earlier today. Discussed with Mrs. nova will check troponin do EKG. Also this was seen with 6 beats of V. tach on telemetry. Her potassium is low replaced. Keep potassium more than 4 and magnesium more than 2. Increase daily potassium. With some shortness of breath however he is saturating well on room air at this time. No fever or chills. Nonproductive cough. Plan to start chemo and radiation. 03-13 HAS BEEN SEEN BY CARDIOLOGY MEDS HAVE BEEN ADJUSTED STILL HAS SWELLING IN BL LE AND SOME SCROTAL SWELLING DW RN AND PT AND CM AND ONCOLOGY AND CARDIOLOGY A.m. labs Physical Exam Vital signs: Vital Signs 03/12/18 16:00 03/12/18 20:00 03/13/18 00:00 Temperature 97.5 F L 98.7 F 98.7 F Pulse Rate 103 H 95 H 96 H Respiratory Rate 16 18 16 Blood Pressure 151/94 H 141/100 H 143/97 H Pulse Oximetry 97 98 98 03/13/18 04:00 03/13/18 04:06 03/13/18 09:03 Temperature 97.8 F 97.9 F Pulse Rate 86 91 H 95 H Respiratory Rate 16 16 Blood Pressure 158/96 H 151/91 H Pulse Oximetry 99 98 Intake & Output 03/12/18 03/13/18 03/13/18 18:59 06:59 18:59 Intake Total 1350 / 1350 660.6 / 660.6 50 / 50 Balance 1350 / 1350 660.6 / 660.6 50 / 50 Weight 52.9 kg Intake: IV 150 / 150 660.6 / 660.6 50 / 50 Decadron Inj 10 MG In NS Inj 50 52.5 / 52.5 ML @ 210 mls/hr IV.SIG DAILY@ 1230 [facility] Rx#:[id number] Vepesid Inj 162 MG In NS Inj 508.1 / 508.1 500 ML @ 508.1 mls/hr IV.SIG DAILY@1300 [facility] Rx#:[id number] Zosyn 3.375 GM Premix 50 ML @ 150 / 150 100 / 100 50 / 50 100 mls/hr IV.SIG Q6H [facility] Rx#: [id number] Oral 1200 / 1200 Other: # Voids 5 Date of Last Bowel Movement 03/12/18 # Bowel Movements 1 Narrative: GENERAL: Awake and alert talkative and cooperative SKIN: Warm and dry. HEAD: Atraumatic. Normocephalic. EYES: Pupils equal and round. No scleral icterus. No injection or drainage. ENT: No nasal bleeding or discharge. Mucous membranes pink and moist. NECK: Trachea midline. No JVD. CARDIOVASCULAR: IRRegular rate and rhythm. S1-S2 no S3 or S4 RESPIRATORY: No accessory muscle use. Clear to auscultation. Breath sounds equal bilaterally. GASTROINTESTINAL: Abdomen soft, non-tender, nondistended. Hepatic and splenic margins not palpable. MUSCULOSKELETAL: Extremities without clubbing, cyanosis. +2-3 bilateral lower extremity edema appears chronic --no obvious deformities. NEUROLOGICAL: Awake and alert. No obvious cranial nerve deficits. Motor grossly within normal limits. 4 out of 5 muscle strength in the arms and legs. Normal speech. PSYCHIATRIC: INAppropriate mood and affect; insight and judgment ABnormal. Results - Labs CBC & Chem 7: 03/13/18 05:10 03/13/18 05:10 Laboratory Results - last 24 hr 03/12/18 03/12/18 03/13/18 13:25 13:25 05:10 WBC 16.6 H RBC 4.41 L Hgb 11.4 L Hct 36.3 L MCV 82.3 MCH 25.8 L MCHC 31.3 L RDW 17.9 H Plt Count 402 MPV 7.9 Neut % (Auto) 87.1 H Lymph % (Auto) 7.7 L [place] % (Auto) 4.9 Eos % (Auto) 0.2 Baso % (Auto) 0.1 Neut # (Auto) 14.5 H Lymph # (Auto) 1.3 [place] # (Auto) 0.8 Eos # (Auto) 0.0 Baso # (Auto) 0.0 WBC Differential . Differential Comment Auto diff final Sodium Potassium Chloride Carbon Dioxide Anion Gap BUN Creatinine Estimated GFR Random Glucose Calcium Phosphorus 2.2 L Magnesium Total Bilirubin AST ALT Alkaline Phosphatase Troponin I 0.02 Total Protein Albumin 03/13/18 05:10 WBC RBC Hgb Hct MCV MCH MCHC RDW Plt Count MPV Neut % (Auto) Lymph % (Auto) [place] % (Auto) Eos % (Auto) Baso % (Auto) Neut # (Auto) Lymph # (Auto) [place] # (Auto) Eos # (Auto) Baso # (Auto) WBC Differential Differential Comment Sodium 139 Potassium 3.1 L Chloride 95 L Carbon Dioxide 39.2 H Anion Gap 5 BUN 26 H Creatinine 0.73 Estimated GFR Greater than 89 Random Glucose 97 Calcium 7.9 L Phosphorus Magnesium 1.7 Total Bilirubin 0.3 AST 26 ALT 37 Alkaline Phosphatase 68 Troponin I Total Protein 5.8 L Albumin 2.2 L - Imaging Chest X-Ray 03/01/18 20:39 CONCLUSION: Left mid and lower lung lobar consolidation. Venous Doppler Study 03/01/18 20:39 CONCLUSION: 1. The study is negative for bilateral lower extremity deep venous thrombosis. Chest CTA 03/01/18 21:06 CONCLUSION: 1. This study is negative for pulmonary embolism. 2. Dense consolidation in the right lower lobe without air bronchograms and with truncation of the bronchus to the right lower lobe. This suggests an obstructing lesion. Recommend direct visualization with bronchoscopy. 3. Multiple right-sided pleural and subpleural nodules measuring up to 2 cm in size. 4. Scattered areas of subcutaneous and deep soft tissue gas in the low neck and supraclavicular region. Abdomen/Pelvis CT 03/01/18 21:29 CONCLUSION: 1. Hepatomegaly without focal lesion. 2. Prominent amount of pericholecystic fluid without calcified gallstones suggests possible acalculous cholecystitis. 3. Abnormal appearance to the right lower lung, described on CT pulmonary angiogram report. 4. Bilateral mildly prominent inguinal lymph nodes. 5. Moderately distended stomach. Head CT 03/01/18 21:38 CONCLUSION: 1. Findings suggest a 6 mm mass in the left occipital white matter. Recommend further characterization using MRI with and without contrast. Gallbladder Ultrasound 03/02/18 00:00 CONCLUSION: 1. No evidence of gallstones or biliary tract obstruction. 2. There is thickening of the gallbladder wall 9 mm suggestive of at least chronic gallbladder disease. 3. Increased echogenicity of the liver parenchyma suggestive of fatty infiltration and/or hepatocellular disease. Head MRI 03/02/18 00:00 CONCLUSION: 1. The examination demonstrates a 0.8 x 0.8 x 0.8 mm homogeneously enhancing mass in the subependymal region of the posterior horn of the left lateral ventricle. Primary consideration would be a focal metastatic lesion. 2. There are some scattered punctate areas of abnormal restricted diffusion signal in the watershed distribution posteriorly on the left. 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 Chest X-Ray 03/03/18 06:00 CONCLUSION: Right basilar lung consolidation and pleural effusion. Findings similar to March 01. Left lung remains clear. Chest X-Ray 03/04/18 06:00 CONCLUSION: No significant change right base consolidation with small to moderate pleural effusion and mild volume loss. Chest X-Ray 03/04/18 11:27 CONCLUSION: Right pleural effusion and the right lung base compressive collapse and/or consolidation not significantly changed. Bone Scan Nuclear Medicine 03/09/18 00:00 CONCLUSION: No evidence of metastatic disease. Port Line Insertion 03/09/18 00:00 CONCLUSION: - Procedures Status post port placement Assessment and Plan - Plan Mr. Mendez is a 62 yo M who presented with chest pain and shortness of breath; patient found to have A fib with RVR with signs of sepsis. Pulmonary and brain lesions suspicious for malignancy on imaging. Patient had BAL and lung biopsy by pulm. Lung biopsy with small cell lung CA. Oncology consulted. Afib with RVR initially; patient titrated off of amiodarone and is currently rate controlled with Metoprolol -Continue daily Metoprolol 25mg BID, PRN metoprolol IV -Continue telemetry. 2D ECHO reviewed with Systolic CHF with ED of 40-45% -Initiate anticoagulation following bronchoscopy when cleared by pulm , gi and hem/onc. Patient with small cell ca with mets to occipital lobe 03/12 Complained of chest pain earlier today noted witj 6 beats of Vtach , K is low replaced. Do EKG and check trops. 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 Presented with Right lower lobe density concerning for malignancy. Chronic COPD. Suspect malignancy/metastatic disease w/ post-obstructive pneumonia Weaned to RA Had Bronch Obstructing mass at RLL bronchus and Lung bx SSLC -Will empirically treat for pneumonia-Zosyn -Continue Hydrocotisone 100mg IV qhrs. Titrated. -Pulmonology consulted-s/p Bronchoscopy, ff -Continue to monitor O2 saturations. 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 A bronchoscopy and biopsy of right lower lobe lung mass showed small cell lung carcinoma. CT abdomen and pelvis did not show obvious metastatic disease. Plan for bone scan to evaluate his back pain to see if he has any metastatic disease in the bone. I told the patient he has stage IV metastatic lung cancer and it is not a curable disease. Palliative chemotherapy and radiation will likely prolong his survival by several months. 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 Patient with small cell Ca with occipital lobe mets Met septic criteria on admission (HR 130, WBC 28.5K) with suspected pulmonary source. Lactic acid 3 initially. s/p IV hydration and pressure support -Continue to monitor CBC/leukocytosis while treating suspected sepsis/pneumonia -Continue monitor blood cultures (negative to date) Hepatomegaly and acalculous cholecystis Hep C CT imaging with suggestion of hepatomegaly and acalculous cholecystis. Associated LFT's with mild transaminase elevations. Hep C antibody +. Hep C can be addressed as outpatient. US gallbladder- thickening of gallbladder wall to 9mm suggestive of disease, increased echogenicity of parenchyma suggestive of fatty infiltration or other liver disease -GI consulted -initial plan for liver biopsy deferred due to bronchoscopy/biopsy. Possibly infection related vs drug induced due to IVDU -monitor labs, supportive care. Liver workup. Chronic pain -Continue Oxycodone 30mg q4hrs PRN -Morphine increased to 6mg IV q 4hrs PRN LE edema, scrotal edema. Recent Doppler US legs is neg. Contiue daily pO lasix 40 mg and monitor kidney function and UOP closely. Repeat BMP . 2D ECHO reviewed with Systolic CHF with ED of 40% Being diuresed DVT PPX -SCD's - Lovenox Hypokalemia will replace Code Status: Full code DC plan Biopsy results with small cell lung carcinoma, oncology consulted. Port placement and plan for radiation Pending improvement and clearance by consultants Code Status: Full code Discussed Condition With: RN and patient and case management and oncology Discharge Planning: Once cleared by all
[2018-03-13] MEDS: Dexamethasone Inj 10 MG in Sodium Chlor 0.9% Inj 50 ML IV.SIG SCH (12:27)
[2018-03-13] MEDS: ETOPOSIDE IV.SIG SCH (13:34)
[2018-03-13] MEDS: SODIUM CHLOR 0.9% IV.SIG SCH (13:34)
[2018-03-13] MEDS: Magnesium Oxide 400 MG Tablet PO SCH (20:00)
[2018-03-13] MEDS: Metoprolol Tartrate 100 MG Tablet PO SCH (20:00)
[2018-03-14] MEDS: Piperacil/Tazo 3.375 GM Premix 50 ML IV.SIG SCH ×4 (01:59→20:59)
[2018-03-14] MEDS: Morphine Inj 4 MG/ML Vial IV.PUSH PRN ×6 (02:02→23:01)
[2018-03-14 04:58] LABS: Baso % (Auto) 0.3 % (0.0-2.0); Eos % (Auto) 0.1 % (0.0-4.0); Hematocrit 36.6 % (39.0-51.0); Hemoglobin 11.5 gm/dL (13.0-17.0); Lymph # (Auto) 1.2 th/mm3 (1.0-4.8); Lymph % (Auto) 8.5 % (9.0-44.0); Mean Corpuscular HGB Conc 31.5 % (32.0-36.0); Mean Corpuscular Hemoglobin 25.9 pg (27.0-34.0); Mean Corpuscular Volume 82.4 fL (80.0-100.0); Mean Platelet Volume 8.2 fL (7.0-11.0); Mono # (Auto) 0.5 th/mm3 (0.0-0.9); Mono % (Auto) 3.2 % (0.0-8.0); Neut # (Auto) 12.5 th/mm3 (1.8-7.7); Neut % (Auto) 87.9 % (16.0-70.0); Platelet Count 398 th/mm3 (150-450); Red Blood Count 4.44 mil/mm3 (4.50-5.90); White Blood Count 14.2 th/mm3 (4.0-11.0)
[2018-03-14 05:30] LABS: Alanine Aminotransferase 36 U/L (12-78); Albumin 2.2 g/dL (3.4-5.0); Anion Gap 4 meq/L (5-15); Aspartate Aminotransferase 33 U/L (15-37); Blood Urea Nitrogen 23 mg/dL (7-18); Calcium 8.1 mg/dL (8.5-10.1); Carbon Dioxide 40.1 meq/L (21.0-32.0); Chloride 94 meq/L (98-107); Glomerular Filtration Rate Greater Than 89 mL/min (>89); Glucose,Random 92 mg/dL (74-106); Magnesium 1.9 mg/dL (1.5-2.5); Phosphorus 3.5 mg/dL (2.5-4.9); Potassium 3.2 meq/L (3.5-5.1); Sodium 138 meq/L (136-145)
[2018-03-14 05:44] LABS: Alkaline Phosphatase 65 U/L (45-117); Free T4 (Free Thyroxine) 0.69 ng/dL (0.76-1.46); Total Protein 5.8 g/dL (6.4-8.2)
[2018-03-14] MEDS: Metoprolol Tartrate 100 MG Tablet PO SCH ×2 (08:01→21:02)
[2018-03-14] MEDS: Amiodarone 200 MG Tablet PO SCH (08:01)
[2018-03-14] MEDS: Hydrocortisone Sod Succinate 100 MG Vial IV.PUSH SCH ×2 (08:01→21:00)
[2018-03-14] MEDS: Pantoprazole Inj 40 MG Vial IV.PUSH SCH (08:01)
[2018-03-14] MEDS: Lisinopril 10 MG Tablet PO SCH ×2 (08:01→21:01)
[2018-03-14] MEDS: Magnesium Oxide 400 MG Tablet PO SCH ×2 (08:02→21:00)
[2018-03-14] MEDS: Enoxaparin Inj 40 MG/0.4 ML Syringe SQ SCH (08:02)
--- NOTE | 2018-03-14 09:16 | P.PNCA ---
Subjective Interval history: No dizziness, CP, palpitations. Mild to moderate dyspnea at baseline. Slept some. Physical Exam Vital signs: Vital Signs 03/13/18 12:35 03/13/18 12:51 03/13/18 16:25 Temperature 98.0 F Pulse Rate 83 91 H 84 Respiratory Rate 16 Blood Pressure 128/91 H Pulse Oximetry 98 03/13/18 17:43 03/13/18 20:00 03/14/18 00:00 Temperature 98.4 F 98.7 F 98 F Pulse Rate 86 95 H 68 Respiratory Rate 18 16 17 Blood Pressure 152/84 H 144/91 H 157/97 H Pulse Oximetry 99 98 99 03/14/18 04:00 03/14/18 07:40 03/14/18 07:50 Temperature 97.5 F L 98.2 F Pulse Rate 77 79 79 Respiratory Rate 16 20 Blood Pressure 167/93 H 165/107 H Pulse Oximetry 98 99 Intake & Output 03/13/18 03/14/18 03/14/18 18:59 06:59 18:59 Intake Total 1500.6 / 1500.6 100 / 100 Balance 1500.6 / 1500.6 100 / 100 Weight 52.3 kg Intake: IV 660.6 / 660.6 100 / 100 Decadron Inj 10 MG In NS Inj 50 52.5 / 52.5 ML @ 210 mls/hr IV.SIG DAILY@ 1230 [facility] Rx#:[id number] Vepesid Inj 162 MG In NS Inj 508.1 / 508.1 500 ML @ 508.1 mls/hr IV.SIG DAILY@1300 [facility] Rx#:[id number] Zosyn 3.375 GM Premix 50 ML @ 100 / 100 100 / 100 100 mls/hr IV.SIG Q6H [facility] Rx#: [id number] Oral 840 / 840 Other: # Voids 8 Date of Last Bowel Movement 03/12/18 03/13/18 03/13/18 - Constitutional no acute distress - Routine Neck Exam Absent: JVD - Routine Respiratory Exam Present: decreased breath sounds - Routine Cardiovascular Exam Present: S1, S2, irregularly irregular. Absent: murmur, gallop - Routine Abdominal Exam Present: soft, normoactive bowel sounds. Absent: tenderness, organomegaly - Routine Extremities Exam Present: edema. Absent: cyanosis, clubbing Comments: Trace to 1+ pretibial edema. Assessment and Plan - Assessment (1) Nonsustained ventricular tachycardia Code(s): I47.2 - Ventricular tachycardia Status: Acute Plan: Stable overnight. No further nonsustained VT. Continue oral Amiodarone, decrease dose to 400 mg daily. Will f/u as needed. (2) Paroxysmal atrial fibrillation Code(s): I48.0 - Paroxysmal atrial fibrillation Status: Acute Plan: Remains in atrial fib. HR's mostly controlled. Recommend continue daily aspirin, metoprolol. (3) Cardiomyopathy Code(s): I42.9 - Cardiomyopathy, unspecified Status: Chronic Plan: Overall stable. Compensated. EF reportedly 40-45% by echo 03/02/18 (EF appears closer to 45-50% by my review). Recommend continue beta zarina, ALIS-I, furosemide. Recommend optimize BP control, add clonidine. - Plan Code Status: full code Discussed Condition With: patient (3) Cardiomyopathy Qualifiers: Cardiomyopathy type: unspecified Qualified Code(s): I42.9 - Cardiomyopathy, unspecified
[2018-03-14] MEDS: Furosemide 40 MG Tablet PO SCH ×2 (10:03→17:08)
[2018-03-14] MEDS: Senna/Docusate Sodium 8.6/50 MG Tablet PO SCH ×2 (10:10→21:03)
[2018-03-14] MEDS: Docusate Sodium 100 MG Capsule PO SCH ×2 (10:10→21:01)
--- NOTE | 2018-03-14 13:52 | P.PNONC ---
Subjective Interval history: Afebrile overnight. Patient ambulating around the room, states he does not feel good however he feels better walking around. Patient noted to have bilateral ankle edema. He is associating this with the IV fluids that he received yesterday with his chemotherapy. His right leg appears larger than the left, patient states that "my right leg always swells more than my left" he denies any pain to the calve, and reports the pain is only to the skin. He appears to walk around his room most of the day. Objective Vital Signs/Intake & Output: Vital Signs 03/13/18 16:25 03/13/18 17:43 03/13/18 20:00 Temperature 98.4 F 98.7 F Pulse Rate 84 86 95 H Respiratory Rate 18 16 Blood Pressure 152/84 H 144/91 H Pulse Oximetry 99 98 03/14/18 00:00 03/14/18 04:00 03/14/18 07:40 Temperature 98 F 97.5 F L Pulse Rate 68 77 79 Respiratory Rate 17 16 Blood Pressure 157/97 H 167/93 H Pulse Oximetry 99 98 03/14/18 07:50 03/14/18 10:02 03/14/18 12:19 Temperature 98.2 F 98.2 F Pulse Rate 79 84 Respiratory Rate 20 18 Blood Pressure 165/107 H 145/84 H 150/98 H Pulse Oximetry 99 100 03/14/18 13:35 Temperature Pulse Rate Respiratory Rate 20 Blood Pressure Pulse Oximetry Intake & Output 03/13/18 03/14/18 03/14/18 18:59 06:59 18:59 Intake Total 1500.6 / 1500.6 100 / 100 Balance 1500.6 / 1500.6 100 / 100 Weight 52.3 kg Intake: IV 660.6 / 660.6 100 / 100 Decadron Inj 10 MG In NS Inj 50 52.5 / 52.5 ML @ 210 mls/hr IV.SIG DAILY@ 1230 [facility] Rx#:[id number] Vepesid Inj 162 MG In NS Inj 508.1 / 508.1 500 ML @ 508.1 mls/hr IV.SIG DAILY@1300 [facility] Rx#:[id number] Zosyn 3.375 GM Premix 50 ML @ 100 / 100 100 / 100 100 mls/hr IV.SIG Q6H [facility] Rx#: [id number] Oral 840 / 840 Other: # Voids 8 Date of Last Bowel Movement 03/12/18 03/13/18 03/13/18 Result Diagrams: 03/14/18 04:10 03/14/18 04:10 Laboratory Results: Laboratory Results - last 24 hr 03/14/18 03/14/18 04:10 04:10 WBC 14.2 H RBC 4.44 L Hgb 11.5 L Hct 36.6 L MCV 82.4 MCH 25.9 L MCHC 31.5 L RDW 18.0 H Plt Count 398 MPV 8.2 Neut % (Auto) 87.9 H Lymph % (Auto) 8.5 L [place] % (Auto) 3.2 Eos % (Auto) 0.1 Baso % (Auto) 0.3 Neut # (Auto) 12.5 H Lymph # (Auto) 1.2 [place] # (Auto) 0.5 Eos # (Auto) 0.0 Baso # (Auto) 0.0 WBC Differential . Differential Comment Auto diff final Sodium 138 Potassium 3.2 L Chloride 94 L Carbon Dioxide 40.1 H Anion Gap 4 L BUN 23 H Creatinine 0.69 Estimated GFR Greater than 89 Random Glucose 92 Calcium 8.1 L Phosphorus 3.5 D Magnesium 1.9 Total Bilirubin 0.6 AST 33 ALT 36 Alkaline Phosphatase 65 Total Protein 5.8 L Albumin 2.2 L TSH 2.180 Free T4 0.69 L Culture Results: Microbiology 03/04/18 11:54 Acid Fast Bacilli Smear - Final Bronchial Washings - Right No acid fast bacilli seen Mycobacterial Culture - Preliminary No growth in 1 week 03/04/18 12:09 Fungal Smear - Final Bronchial Washings - Right No fungal elements seen Fungal Culture - Preliminary No growth in 1 week Medications: Active Medications Generic Name Dose Route Start Last Admin Trade Name Freq PRN Reason Stop Dose Admin Albuterol 1 ampul 03/02/18 00:41 03/07/18 05:04 Duoneb Neb (Prn) NEB 1 ampul Q2HR NEB PRN Administration WHEEZING Aspirin 81 mg 03/13/18 09:00 03/14/18 08:00 Ecotrin PO 81 mg DAILY [facility] Administration Docusate Sodium 100 mg 03/03/18 10:00 03/14/18 10:10 Colace PO Not Given BID [facility] Enoxaparin Sodium 40 mg 03/08/18 09:00 03/14/18 08:02 Lovenox Inj SQ 40 mg DAILY [facility] Administration Furosemide 40 mg 03/07/18 18:00 03/14/18 10:03 Lasix PO 40 mg BID@0900,1800 [facility] Administration Hydrocortisone Sodium Succinate 100 mg 03/10/18 09:00 03/14/18 08:01 Solucortef Inj IV.PUSH 100 mg Q12HR [facility] Administration Piperacillin/Tazobactam/Dextrose 50 mls @ 100 mls/hr 03/09/18 20:00 03/14/18 07:56 Zosyn 3.375 Gm Premix IV.SIG 100 mls/hr Q6H [facility] Administration Lisinopril 10 mg 03/12/18 21:00 03/14/18 08:01 Prinivil PO 10 mg BID [facility] Administration Magnesium Oxide 400 mg 03/13/18 21:00 03/14/18 08:02 Mag-Ox PO 400 mg BID [facility] Administration Metoprolol Tartrate 100 mg 03/13/18 10:58 03/14/18 08:01 Lopressor PO 100 mg BID [facility] Administration Morphine Sulfate 6 mg 03/11/18 12:20 03/14/18 10:05 Morphine Inj IV.PUSH 6 mg Q3H PRN Administration PAIN 6-10;IF UNABLE TO TAKE PO Oxycodone HCl 30 mg 03/03/18 10:00 03/14/18 12:22 Roxicodone PO 30 mg Q4H PRN Administration SEE LABEL COMMENTS Pantoprazole Sodium 40 mg 03/02/18 09:00 03/14/18 08:01 Protonix Inj IV.PUSH 40 mg DAILY [facility] Administration Potassium Chloride 40 meq 03/14/18 08:55 03/14/18 12:29 Klor-Con 10 PO Not Given BID [facility] Senna/Docusate Sodium 1 tab 03/02/18 09:00 03/14/18 10:10 Heather-Colace PO Not Given BID [facility] Sodium Chloride 2 ml 03/02/18 09:00 03/14/18 08:02 Ns Flush IV.FLUSH 2 ml BID [facility] Administration Sodium Chloride 2 ml 03/02/18 00:41 03/04/18 21:33 Ns Flush IV.FLUSH 2 ml PRN PRN Administration FLUSH AFTER USING IV ACCESS Objective Remarks: GENERAL: Ill-appearing, male patient. In no acute distress. Ambulating in his room. SKIN: Warm and dry. Steri-Strips to right superior collarbone, dry/intact. Right chest wall port access, dressing dry/intact. No drainage noted. HEAD: Normocephalic. EYES: No scleral icterus. No injection or drainage. PERRLA. NECK: Supple, trachea midline. CARDIOVASCULAR: Irregularly irregular rhythm without murmurs, rate controlled. RESPIRATORY: Posterior breath sounds diminished, right base absent. No accessory muscle use. O2 via nasal cannula. GASTROINTESTINAL: Abdomen soft, non-tender, nondistended. EXTREMITIES: No cyanosis. 2+ edema RLE, 1+ edema LLE. MUSCULOSKELETAL: Adequate muscle tone. NEUROLOGICAL: No obvious focal deficit. Awake, alert, and oriented x3. PSYCHIATRIC: Agitated. Assessment/Plan (1) Metastatic lung carcinoma Code(s): C78.00 - Secondary malignant neoplasm of unspecified lung Status: Acute (2) Metastatic adenocarcinoma to brain Code(s): C79.31 - Secondary malignant neoplasm of brain Status: Acute (3) Atrial fibrillation with RVR Code(s): I48.91 - Unspecified atrial fibrillation Status: Acute (4) Pneumonia Code(s): J18.9 - Pneumonia, unspecified organism Status: Acute - Plan This is a 62-year-old male patient with a newly diagnosed stage IV small cell lung carcinoma. He has a large right lower lobe obstructing mass causing partial collapse of the right lung. There are also multiple pleural and subpleural nodules in the right lung that measured up to [address] of the head shows suspicious lesion in the left occipital lobe and subsequent MRI showed an 8 mm mass in the subependymal region of posterior horn of the left lateral ventricle. CT abdomen and pelvis did not show obvious metastatic disease. Bone scan with patient which was negative for metastatic disease in the bone. Palliative chemotherapy and radiation will likely prolong his survival by several months. He will likely receive stereotactic radiation to the brain mass in between the chemotherapy. Plan: 03/11/18: Chemotherapy treatment ordered to start today. Carbo/etoposide. 03/12/18: D2 Carbo/etoposide. Afebrile. 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 reports of chest pain, relieved with position change. 03/13/18: D3 Carbo/etoposide. Afebrile. No further runs of VT noted. 03/14/18: D4 cycle 1 chemotherapy complete. Afebrile. 1. Small cell lung carcinoma. Patient has completed palliative chemotherapy with carbo/etoposide. Tolerated well. 2. Cardiology following for atrial fibrillation and 8 beat run of VT. 3. We will continue to monitor labs. 4. Postobstructive pneumonia. He remains afebrile. Management per pulmonology. 5. Bilateral edema. Right leg larger than left, patient adamantly denies calf pain. Subjectively reports his swelling is always worse in the right leg. Possibly secondary to IV fluids during chemotherapy admission with some aspect of dependent edema, as the patient paces around his room for most of the day. We will continue to monitor and will order an ultrasound if any pain or redness occurs. Patient currently on Lovenox and aspirin and remains quite mobile. Continue Lasix. - Attending Statement The exam, history, and the medical decision-making described in the above note were completed with the assistance of the mid-level provider. I reviewed and agree with the findings presented. I attest that I had a [id number] encounter with the patient on the same day, and personally performed and documented my assessment and findings in the medical record. Pt has completed cyc#1 carboplatin/Etoposide. He tolerated it well. Has BLE edema due to fluid. SOB stable. No further V.tach. Continue supportive care. Can be d/c when stable. (1) Metastatic lung carcinoma Qualifiers: Laterality: right Qualified Code(s): C78.01 - Secondary malignant neoplasm of right lung
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
--- NOTE | 2018-03-14 15:39 | P.PNIM ---
Subjective Interval history: F/up multiple medical problems. Afib with rvr. RLL mass, AF, brain mass, small cell CA likely with brain mets. Edema Edema in his legs and scrotum is improving. He was however complaining of some chest pain earlier today. Discussed with Mrs. nova will check troponin do EKG. Also this was seen with 6 beats of V. tach on telemetry. Her potassium is low replaced. Keep potassium more than 4 and magnesium more than 2. Increase daily potassium. With some shortness of breath however he is saturating well on room air at this time. No fever or chills. Nonproductive cough. Plan to start chemo and radiation. 03-13 HAS BEEN SEEN BY CARDIOLOGY MEDS HAVE BEEN ADJUSTED STILL HAS SWELLING IN BL LE AND SOME SCROTAL SWELLING DW RN AND PT AND CM AND ONCOLOGY AND CARDIOLOGY A.m. labs 03-14 MEDS ADJUSTED BY CARDIOLOGY HOPEFULLY CAN DC TO HOME TOMORROW DW RN AND PT AND CM AND ONCOLOGY AM LABS NO NEED FOR HHC AT THIS TIME Physical Exam Vital signs: Vital Signs 03/13/18 16:25 03/13/18 17:43 03/13/18 20:00 Temperature 98.4 F 98.7 F Pulse Rate 84 86 95 H Respiratory Rate 18 16 Blood Pressure 152/84 H 144/91 H Pulse Oximetry 99 98 03/14/18 00:00 03/14/18 04:00 03/14/18 07:40 Temperature 98 F 97.5 F L Pulse Rate 68 77 79 Respiratory Rate 17 16 Blood Pressure 157/97 H 167/93 H Pulse Oximetry 99 98 03/14/18 07:50 03/14/18 10:02 03/14/18 11:00 Temperature 98.2 F Pulse Rate 79 66 Respiratory Rate 20 Blood Pressure 165/107 H 145/84 H Pulse Oximetry 99 03/14/18 12:19 03/14/18 13:35 Temperature 98.2 F Pulse Rate 84 Respiratory Rate 18 20 Blood Pressure 150/98 H Pulse Oximetry 100 Intake & Output 03/13/18 03/14/18 03/14/18 18:59 06:59 18:59 Intake Total 1500.6 / 1500.6 100 / 100 Balance 1500.6 / 1500.6 100 / 100 Weight 52.3 kg Intake: IV 660.6 / 660.6 100 / 100 Decadron Inj 10 MG In NS Inj 50 52.5 / 52.5 ML @ 210 mls/hr IV.SIG DAILY@ 1230 [facility] Rx#:[id number] Vepesid Inj 162 MG In NS Inj 508.1 / 508.1 500 ML @ 508.1 mls/hr IV.SIG DAILY@1300 [facility] Rx#:[id number] Zosyn 3.375 GM Premix 50 ML @ 100 / 100 100 / 100 100 mls/hr IV.SIG Q6H [facility] Rx#: [id number] Oral 840 / 840 Other: # Voids 8 Date of Last Bowel Movement 03/12/18 03/13/18 03/13/18 Narrative: GENERAL: Awake and alert talkative and cooperative SKIN: Warm and dry. HEAD: Atraumatic. Normocephalic. EYES: Pupils equal and round. No scleral icterus. No injection or drainage. ENT: No nasal bleeding or discharge. Mucous membranes pink and moist. NECK: Trachea midline. No JVD. CARDIOVASCULAR: IRRegular rate and rhythm. S1-S2 no S3 or S4 RESPIRATORY: No accessory muscle use. Clear to auscultation. Breath sounds equal bilaterally. GASTROINTESTINAL: Abdomen soft, non-tender, nondistended. Hepatic and splenic margins not palpable. MUSCULOSKELETAL: Extremities without clubbing, cyanosis. +2-3 bilateral lower extremity edema appears chronic --no obvious deformities. NEUROLOGICAL: Awake and alert. No obvious cranial nerve deficits. Motor grossly within normal limits. 4 out of 5 muscle strength in the arms and legs. Normal speech. PSYCHIATRIC: INAppropriate mood and affect; insight and judgment ABnormal. Results - Labs CBC & Chem 7: 03/14/18 04:10 03/14/18 04:10 Laboratory Results - last 24 hr 03/14/18 03/14/18 04:10 04:10 WBC 14.2 H RBC 4.44 L Hgb 11.5 L Hct 36.6 L MCV 82.4 MCH 25.9 L MCHC 31.5 L RDW 18.0 H Plt Count 398 MPV 8.2 Neut % (Auto) 87.9 H Lymph % (Auto) 8.5 L [place] % (Auto) 3.2 Eos % (Auto) 0.1 Baso % (Auto) 0.3 Neut # (Auto) 12.5 H Lymph # (Auto) 1.2 [place] # (Auto) 0.5 Eos # (Auto) 0.0 Baso # (Auto) 0.0 WBC Differential . Differential Comment Auto diff final Sodium 138 Potassium 3.2 L Chloride 94 L Carbon Dioxide 40.1 H Anion Gap 4 L BUN 23 H Creatinine 0.69 Estimated GFR Greater than 89 Random Glucose 92 Calcium 8.1 L Phosphorus 3.5 D Magnesium 1.9 Total Bilirubin 0.6 AST 33 ALT 36 Alkaline Phosphatase 65 Total Protein 5.8 L Albumin 2.2 L TSH 2.180 Free T4 0.69 L - Imaging Chest X-Ray 03/01/18 20:39 CONCLUSION: Left mid and lower lung lobar consolidation. Venous Doppler Study 03/01/18 20:39 CONCLUSION: 1. The study is negative for bilateral lower extremity deep venous thrombosis. Chest CTA 03/01/18 21:06 CONCLUSION: 1. This study is negative for pulmonary embolism. 2. Dense consolidation in the right lower lobe without air bronchograms and with truncation of the bronchus to the right lower lobe. This suggests an obstructing lesion. Recommend direct visualization with bronchoscopy. 3. Multiple right-sided pleural and subpleural nodules measuring up to 2 cm in size. 4. Scattered areas of subcutaneous and deep soft tissue gas in the low neck and supraclavicular region. Abdomen/Pelvis CT 03/01/18 21:29 CONCLUSION: 1. Hepatomegaly without focal lesion. 2. Prominent amount of pericholecystic fluid without calcified gallstones suggests possible acalculous cholecystitis. 3. Abnormal appearance to the right lower lung, described on CT pulmonary angiogram report. 4. Bilateral mildly prominent inguinal lymph nodes. 5. Moderately distended stomach. Head CT 03/01/18 21:38 CONCLUSION: 1. Findings suggest a 6 mm mass in the left occipital white matter. Recommend further characterization using MRI with and without contrast. Gallbladder Ultrasound 03/02/18 00:00 CONCLUSION: 1. No evidence of gallstones or biliary tract obstruction. 2. There is thickening of the gallbladder wall 9 mm suggestive of at least chronic gallbladder disease. 3. Increased echogenicity of the liver parenchyma suggestive of fatty infiltration and/or hepatocellular disease. Head MRI 03/02/18 00:00 CONCLUSION: 1. The examination demonstrates a 0.8 x 0.8 x 0.8 mm homogeneously enhancing mass in the subependymal region of the posterior horn of the left lateral ventricle. Primary consideration would be a focal metastatic lesion. 2. There are some scattered punctate areas of abnormal restricted diffusion signal in the watershed distribution posteriorly on the left. 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 Chest X-Ray 03/03/18 06:00 CONCLUSION: Right basilar lung consolidation and pleural effusion. Findings similar to March 01. Left lung remains clear. Chest X-Ray 03/04/18 06:00 CONCLUSION: No significant change right base consolidation with small to moderate pleural effusion and mild volume loss. Chest X-Ray 03/04/18 11:27 CONCLUSION: Right pleural effusion and the right lung base compressive collapse and/or consolidation not significantly changed. Bone Scan Nuclear Medicine 03/09/18 00:00 CONCLUSION: No evidence of metastatic disease. Port Line Insertion 03/09/18 00:00 CONCLUSION: - Procedures Status post port placement Assessment and Plan - Plan Mr. Mendez is a 62 yo M who presented with chest pain and shortness of breath; patient found to have A fib with RVR with signs of sepsis. Pulmonary and brain lesions suspicious for malignancy on imaging. Patient had BAL and lung biopsy by pulm. Lung biopsy with small cell lung CA. Oncology consulted. Afib with RVR initially; patient titrated off of amiodarone and is currently rate controlled with Metoprolol -Continue daily Metoprolol 25mg BID, PRN metoprolol IV -Continue telemetry. 2D ECHO reviewed with Systolic CHF with ED of 40-45% -Initiate anticoagulation following bronchoscopy when cleared by pulm , gi and hem/onc. Patient with small cell ca with mets to occipital lobe 03/12 Complained of chest pain earlier today noted witj 6 beats of Vtach , K is low replaced. Do EKG and check trops. 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 Presented with Right lower lobe density concerning for malignancy. Chronic COPD. Suspect malignancy/metastatic disease w/ post-obstructive pneumonia Weaned to RA Had Bronch Obstructing mass at RLL bronchus and Lung bx SSLC -Will empirically treat for pneumonia-Zosyn -Continue Hydrocotisone 100mg IV qhrs. Titrated. -Pulmonology consulted-s/p Bronchoscopy, ff -Continue to monitor O2 saturations. 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 A bronchoscopy and biopsy of right lower lobe lung mass showed small cell lung carcinoma. CT abdomen and pelvis did not show obvious metastatic disease. Plan for bone scan to evaluate his back pain to see if he has any metastatic disease in the bone. I told the patient he has stage IV metastatic lung cancer and it is not a curable disease. Palliative chemotherapy and radiation will likely prolong his survival by several months. HAD CHEMO FINISH CAN DC TO HOME OTMORROW Occipital lobe lesion concerning for malignancy on CT imaging -Neurosurgery consulted -lesion not easily visible; MRI brain ordered for further characterization MRI showed an 8 mm mass in the subependymal region of posterior horn of the left lateral ventricle. Patient with small cell Ca with occipital lobe mets Met septic criteria on admission (HR 130, WBC 28.5K) with suspected pulmonary source. Lactic acid 3 initially. s/p IV hydration and pressure support -Continue to monitor CBC/leukocytosis while treating suspected sepsis/pneumonia -Continue monitor blood cultures (negative to date) Hepatomegaly and acalculous cholecystis Hep C CT imaging with suggestion of hepatomegaly and acalculous cholecystis. Associated LFT's with mild transaminase elevations. Hep C antibody +. Hep C can be addressed as outpatient. US gallbladder- thickening of gallbladder wall to 9mm suggestive of disease, increased echogenicity of parenchyma suggestive of fatty infiltration or other liver disease -GI consulted -initial plan for liver biopsy deferred due to bronchoscopy/biopsy. Possibly infection related vs drug induced due to IVDU -monitor labs, supportive care. Liver workup. Chronic pain -Continue Oxycodone 30mg q4hrs PRN -Morphine increased to 6mg IV q 4hrs PRN LE edema, scrotal edema. Recent Doppler US legs is neg. Contiue daily pO lasix 40 mg and monitor kidney function and UOP closely. Repeat BMP . 2D ECHO reviewed with Systolic CHF with ED of 40% Being diuresed DVT PPX -SCD's - Lovenox Hypokalemia will replace- AGAIN REPLACE ADJUST MEDS MEDS ADJUSTED BY CARDIOLOGY AM LABS Code Status: Full code DC plan Biopsy results with small cell lung carcinoma, oncology consulted. Port placement and plan for radiation Pending improvement and clearance by consultants HOPEFULLY HOME TOMORROW Code Status: FULL CODE Discussed Condition With: RN AND PT AND CM AND ONCOLOGY Discharge Planning: Once cleared by all
[2018-03-14 16:01] LABS: Hemoglobin A1c 5.9 % (4.3-6.0)
--- NOTE | 2018-03-14 18:55 | P.PNPL ---
Subjective Interval history: 62 YOWM with RLL mass, AF,brain mass breathing better Obstructing mass at RLL bronchus Up in chair No hemoptysis Lung bx SSLC Had Chemo Physical Exam Vital signs: Vital Signs 03/13/18 20:00 03/14/18 00:00 03/14/18 04:00 Temperature 98.7 F 98 F 97.5 F L Pulse Rate 95 H 68 77 Respiratory Rate 16 17 16 Blood Pressure 144/91 H 157/97 H 167/93 H Pulse Oximetry 98 99 98 03/14/18 07:40 03/14/18 07:50 03/14/18 10:02 Temperature 98.2 F Pulse Rate 79 79 Respiratory Rate 20 Blood Pressure 165/107 H 145/84 H Pulse Oximetry 99 03/14/18 11:00 03/14/18 12:19 03/14/18 13:35 Temperature 98.2 F Pulse Rate 66 84 Respiratory Rate 18 20 Blood Pressure 150/98 H Pulse Oximetry 100 03/14/18 14:22 03/14/18 15:00 03/14/18 17:10 Temperature 98.1 F Pulse Rate 83 79 Respiratory Rate 18 20 Blood Pressure 146/97 H Pulse Oximetry 99 Intake & Output 03/13/18 03/14/18 03/14/18 18:59 06:59 18:59 Intake Total 1500.6 / 1500.6 100 / 100 600 / 600 Balance 1500.6 / 1500.6 100 / 100 600 / 600 Weight 52.3 kg Intake: IV 660.6 / 660.6 100 / 100 100 / 100 Decadron Inj 10 MG In NS Inj 50 52.5 / 52.5 ML @ 210 mls/hr IV.SIG DAILY@ 1230 [facility] Rx#:[id number] Vepesid Inj 162 MG In NS Inj 508.1 / 508.1 500 ML @ 508.1 mls/hr IV.SIG DAILY@1300 [facility] Rx#:[id number] Zosyn 3.375 GM Premix 50 ML @ 100 / 100 100 / 100 100 / 100 100 mls/hr IV.SIG Q6H [facility] Rx#: [id number] Oral 840 / 840 500 / 500 Other: # Voids 8 6 Date of Last Bowel Movement 03/12/18 03/13/18 03/13/18 # Bowel Movements 2 GENERAL: Elderly WM,NAD SKIN: Warm and dry. HEAD: Normocephalic. EYES: No scleral icterus. No injection or drainage. NECK: Supple, trachea midline. No JVD or lymphadenopathy. CARDIOVASCULAR: Regular rate and rhythm without murmurs, gallops, or rubs. RESPIRATORY: Breath sounds equal bilaterally. No accessory muscle use. GASTROINTESTINAL: Abdomen soft, non-tender, nondistended. MUSCULOSKELETAL: No cyanosis, or edema. BACK: Nontender without obvious deformity. No CVA tenderness. Assessment and Plan - Plan IMPRESSION: 1. Right lower lobe density with obstruction in the right lower lobe. Need to rule out endobronchial lesion. 2. Weight loss. 3. Chronic obstructive pulmonary disease. 4. Nicotine use 5. Occipital lobe lesion. 5. Possible cholecystitis. 6. Leukocytosis. 7. Small cell lung ca PLAN: Supplement 02 Monitor hemoptysis Chemo starting today DW Pt Stable from Pulm standpoint DC plans underway
[2018-03-15] MEDS: Piperacil/Tazo 3.375 GM Premix 50 ML IV.SIG SCH ×2 (02:29→08:41)
[2018-03-15] MEDS: Morphine Inj 4 MG/ML Vial IV.PUSH PRN (04:04)
[2018-03-15 05:06] LABS: Baso % (Auto) 0.1 % (0.0-2.0); Eos % (Auto) 0.1 % (0.0-4.0); Hematocrit 34.7 % (39.0-51.0); Hemoglobin 10.8 gm/dL (13.0-17.0); Lymph # (Auto) 1.1 th/mm3 (1.0-4.8); Mean Corpuscular HGB Conc 31.1 % (32.0-36.0); Mean Corpuscular Hemoglobin 25.6 pg (27.0-34.0); Mean Corpuscular Volume 82.3 fL (80.0-100.0); Mean Platelet Volume 8.4 fL (7.0-11.0); Mono # (Auto) 0.2 th/mm3 (0.0-0.9); Mono % (Auto) 1.7 % (0.0-8.0); Neut # (Auto) 10.5 th/mm3 (1.8-7.7); Neut % (Auto) 89.1 % (16.0-70.0); Platelet Count 378 th/mm3 (150-450); Red Blood Count 4.21 mil/mm3 (4.50-5.90); Red Cell Distribution Width 17.8 % (11.6-17.2); White Blood Count 11.8 th/mm3 (4.0-11.0)
[2018-03-15 05:25] LABS: Albumin 2.1 g/dL (3.4-5.0); Anion Gap 5 meq/L (5-15); Aspartate Aminotransferase 36 U/L (15-37); Blood Urea Nitrogen 25 mg/dL (7-18); Calcium 7.9 mg/dL (8.5-10.1); Carbon Dioxide 39.5 meq/L (21.0-32.0); Chloride 94 meq/L (98-107); Glomerular Filtration Rate Greater Than 89 mL/min (>89); Glucose,Random 103 mg/dL (74-106); Potassium 3.5 meq/L (3.5-5.1); Sodium 138 meq/L (136-145)
[2018-03-15 05:27] LABS: Alanine Aminotransferase 39 U/L (12-78)
[2018-03-15 05:29] LABS: Alkaline Phosphatase 66 U/L (45-117); Total Protein 5.5 g/dL (6.4-8.2)
[2018-03-15] MEDS: Magnesium Oxide 400 MG Tablet PO SCH (08:41)
[2018-03-15] MEDS: Docusate Sodium 100 MG Capsule PO SCH (08:41)
[2018-03-15] MEDS: Pantoprazole Inj 40 MG Vial IV.PUSH SCH (08:41)
[2018-03-15] MEDS: Enoxaparin Inj 40 MG/0.4 ML Syringe SQ SCH (08:42)
[2018-03-15] MEDS: Hydrocortisone Sod Succinate 100 MG Vial IV.PUSH SCH (08:42)
[2018-03-15] MEDS: Lisinopril 10 MG Tablet PO SCH (08:43)
[2018-03-15] MEDS: Senna/Docusate Sodium 8.6/50 MG Tablet PO SCH (08:43)
[2018-03-15] MEDS: Metoprolol Tartrate 100 MG Tablet PO SCH (08:43)
[2018-03-15] MEDS: Furosemide 40 MG Tablet PO SCH (08:47)
[2018-03-15] MEDS ORDERED: Amiodarone 200 MG Tablet PO SCH (09:00)
--- NOTE | 2018-03-15 11:05 | P.PNONC ---
Subjective Interval history: Afebrile Patient reports he felt really good at 4 AM but now does not feel well again Denies palpitations or chest pain No shortness of breath at rest Objective Vital Signs/Intake & Output: Vital Signs 03/14/18 11:00 03/14/18 12:19 03/14/18 13:35 Temperature 98.2 F Pulse Rate 66 84 Respiratory Rate 18 20 Blood Pressure 150/98 H Pulse Oximetry 100 03/14/18 14:22 03/14/18 15:00 03/14/18 17:10 Temperature 98.1 F Pulse Rate 83 79 Respiratory Rate 18 20 Blood Pressure 146/97 H Pulse Oximetry 99 03/14/18 20:00 03/14/18 20:11 03/15/18 00:00 Temperature 98.2 F 97.8 F Pulse Rate 92 H 92 H 76 Respiratory Rate 17 17 Blood Pressure 151/97 H 126/77 Pulse Oximetry 98 98 03/15/18 04:00 03/15/18 04:02 03/15/18 07:46 Temperature 97.8 F Pulse Rate 69 71 88 Respiratory Rate 17 Blood Pressure 128/84 Pulse Oximetry 100 03/15/18 08:00 Temperature 98 F Pulse Rate 93 H Respiratory Rate 18 Blood Pressure 146/88 H Pulse Oximetry 100 Intake & Output 03/14/18 03/15/18 03/15/18 18:59 06:59 18:59 Intake Total 600 / 600 580 / 580 50 / 50 Balance 600 / 600 580 / 580 50 / 50 Weight 114 lb 10.246 oz Intake: IV 100 / 100 100 / 100 50 / 50 Zosyn 3.375 GM Premix 50 ML @ 100 / 100 100 / 100 50 / 50 100 mls/hr IV.SIG Q6H [facility] Rx#: [id number] Oral 500 / 500 480 / 480 Other: # Voids 6 2 Date of Last Bowel Movement 03/13/18 03/13/18 03/13/18 # Bowel Movements 2 Result Diagrams: 03/15/18 04:00 03/15/18 04:00 Laboratory Results: Laboratory Results - last 24 hr 03/14/18 03/15/18 03/15/18 04:10 04:00 04:00 WBC 11.8 H RBC 4.21 L Hgb 10.8 L Hct 34.7 L MCV 82.3 MCH 25.6 L MCHC 31.1 L RDW 17.8 H Plt Count 378 MPV 8.4 Neut % (Auto) 89.1 H Lymph % (Auto) 9.0 [place] % (Auto) 1.7 Eos % (Auto) 0.1 Baso % (Auto) 0.1 Neut # (Auto) 10.5 H Lymph # (Auto) 1.1 [place] # (Auto) 0.2 Eos # (Auto) 0.0 Baso # (Auto) 0.0 WBC Differential . Differential Comment Auto diff final Sodium 138 Potassium 3.5 Chloride 94 L Carbon Dioxide 39.5 H Anion Gap 5 BUN 25 H Creatinine 0.80 Estimated GFR Greater than 89 Random Glucose 103 Hemoglobin A1c 5.9 Calcium 7.9 L Phosphorus 3.0 Magnesium 2.0 Total Bilirubin 0.3 AST 36 ALT 39 Alkaline Phosphatase 66 Total Protein 5.5 L Albumin 2.1 L Medications: Active Medications Generic Name Dose Route Start Last Admin Trade Name Freq PRN Reason Stop Dose Admin Albuterol 1 ampul 03/02/18 00:41 03/07/18 05:04 Duoneb Neb (Prn) NEB 1 ampul Q2HR NEB PRN Administration WHEEZING Amiodarone HCl 400 mg 03/15/18 09:00 03/15/18 08:42 Cordarone PO 400 mg DAILY [facility] Administration Aspirin 81 mg 03/13/18 09:00 03/15/18 08:43 Ecotrin PO 81 mg DAILY [facility] Administration Clonidine HCl 0.1 mg 03/14/18 21:00 03/15/18 08:43 Catapres PO 0.1 mg Q12HR [facility] Administration Docusate Sodium 100 mg 03/03/18 10:00 03/15/18 08:41 Colace PO 100 mg BID [facility] Administration Enoxaparin Sodium 40 mg 03/08/18 09:00 03/15/18 08:42 Lovenox Inj SQ 40 mg DAILY [facility] Administration Furosemide 40 mg 03/07/18 18:00 03/15/18 08:47 Lasix PO 40 mg BID@0900,1800 [facility] Administration Hydrocortisone Sodium Succinate 100 mg 03/10/18 09:00 03/15/18 08:42 Solucortef Inj IV.PUSH 100 mg Q12HR [facility] Administration Piperacillin/Tazobactam/Dextrose 50 mls @ 100 mls/hr 03/09/18 20:00 03/15/18 10:19 Zosyn 3.375 Gm Premix IV.SIG Infused Q6H [facility] Infusion Lisinopril 10 mg 03/12/18 21:00 03/15/18 08:43 Prinivil PO 10 mg BID [facility] Administration Magnesium Oxide 400 mg 03/13/18 21:00 03/15/18 08:41 Mag-Ox PO 400 mg BID [facility] Administration Metoprolol Tartrate 100 mg 03/13/18 10:58 03/15/18 08:43 Lopressor PO 100 mg BID [facility] Administration Morphine Sulfate 6 mg 03/11/18 12:20 03/15/18 04:04 Morphine Inj IV.PUSH 6 mg Q3H PRN Administration PAIN 6-10;IF UNABLE TO TAKE PO Oxycodone HCl 30 mg 03/03/18 10:00 03/15/18 10:35 Roxicodone PO 30 mg Q4H PRN Administration SEE LABEL COMMENTS Pantoprazole Sodium 40 mg 03/02/18 09:00 03/15/18 08:41 Protonix Inj IV.PUSH 40 mg DAILY [facility] Administration Potassium Chloride 40 meq 03/14/18 08:55 03/15/18 08:43 Klor-Con 10 PO 40 meq BID [facility] Administration Senna/Docusate Sodium 1 tab 03/02/18 09:00 03/15/18 08:43 Heather-Colace PO 1 tab BID [facility] Administration Sodium Chloride 2 ml 03/02/18 09:00 03/15/18 08:44 Ns Flush IV.FLUSH 2 ml BID [facility] Administration Sodium Chloride 2 ml 03/02/18 00:41 03/04/18 21:33 Ns Flush IV.FLUSH 2 ml PRN PRN Administration FLUSH AFTER USING IV ACCESS Objective Remarks: GENERAL: Older male sitting on side of bed, resting with his head on bedside table in no obvious distress. SKIN: Warm and dry. Steri-Strips to right superior collarbone, dry/intact. Right chest wall port access, dressing dry/intact. No drainage noted. HEAD: Normocephalic. EYES: No scleral icterus. No injection or drainage. PERRLA. NECK: Supple, trachea midline. CARDIOVASCULAR: Irregularly irregular rhythm without murmurs, rate controlled. RESPIRATORY: Lungs diminished posteriorly. GASTROINTESTINAL: Abdomen soft, non-tender, nondistended. EXTREMITIES: No cyanosis. Bilateral lower extremity generalized edema MUSCULOSKELETAL: Adequate muscle tone. NEUROLOGICAL: No obvious focal deficit. Awake, alert, and oriented x3. Assessment/Plan (1) Metastatic lung carcinoma Code(s): C78.00 - Secondary malignant neoplasm of unspecified lung Status: Acute (2) Metastatic adenocarcinoma to brain Code(s): C79.31 - Secondary malignant neoplasm of brain Status: Acute (3) Atrial fibrillation with RVR Code(s): I48.91 - Unspecified atrial fibrillation Status: Acute (4) Pneumonia Code(s): J18.9 - Pneumonia, unspecified organism Status: Acute - Plan This is a 62-year-old male patient with a newly diagnosed stage IV small cell lung carcinoma. He has a large right lower lobe obstructing mass causing partial collapse of the right lung. There are also multiple pleural and subpleural nodules in the right lung that measured up to [address] of the head shows suspicious lesion in the left occipital lobe and subsequent MRI showed an 8 mm mass in the subependymal region of posterior horn of the left lateral ventricle. CT abdomen and pelvis did not show obvious metastatic disease. Bone scan with patient which was negative for metastatic disease in the bone. Palliative chemotherapy and radiation will likely prolong his survival by several months. He will likely receive stereotactic radiation to the brain mass in between the chemotherapy. 1. 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 The patient has an appointment with radiation oncology on March 17 at 3 PM. 3. Clear for discharge from oncology standpoint. I have discussed with new patient referrals and they will facilitate him in to seeing Dr. Herrera in 1-2 weeks. - Attending Statement The exam, history, and the medical decision-making described in the above note were completed with the assistance of the mid-level provider. I reviewed and agree with the findings presented. I attest that I had a [id number] encounter with the patient on the same day, and personally performed and documented my assessment and findings in the medical record. Patient is feeling better. His shortness of breath has improved. He has mild chest pain. He had nausea yesterday but has resolved. He is going to follow-up with Dr. wolff for radiation. He can be discharged once cleared by pulmonology. We will arrange for him to follow-up at oncology clinic to continue treatment (1) Metastatic lung carcinoma Qualifiers: Laterality: right Qualified Code(s): C78.01 - Secondary malignant neoplasm of right lung
--- NOTE | 2018-03-15 11:44 | P.PNPL ---
Subjective Interval history: 62 YOWM with RLL mass, AF,brain mass breathing better Obstructing mass at RLL bronchus Up in chair No hemoptysis Lung bx SSLC Anxious to go home Physical Exam Vital signs: Vital Signs 03/14/18 12:19 03/14/18 13:35 03/14/18 14:22 Temperature 98.2 F Pulse Rate 84 Respiratory Rate 18 20 18 Blood Pressure 150/98 H Pulse Oximetry 100 03/14/18 15:00 03/14/18 17:10 03/14/18 20:00 Temperature 98.1 F 98.2 F Pulse Rate 83 79 92 H Respiratory Rate 20 17 Blood Pressure 146/97 H 151/97 H Pulse Oximetry 99 98 03/14/18 20:11 03/15/18 00:00 03/15/18 04:00 Temperature 97.8 F 97.8 F Pulse Rate 92 H 76 69 Respiratory Rate 17 17 Blood Pressure 126/77 128/84 Pulse Oximetry 98 100 03/15/18 04:02 03/15/18 07:46 03/15/18 08:00 Temperature 98 F Pulse Rate 71 88 93 H Respiratory Rate 18 Blood Pressure 146/88 H Pulse Oximetry 100 Intake & Output 03/14/18 03/15/18 03/15/18 18:59 06:59 18:59 Intake Total 600 / 600 580 / 580 50 / 50 Balance 600 / 600 580 / 580 50 / 50 Weight 52 kg Intake: IV 100 / 100 100 / 100 50 / 50 Zosyn 3.375 GM Premix 50 ML @ 100 / 100 100 / 100 50 / 50 100 mls/hr IV.SIG Q6H [facility] Rx#: [id number] Oral 500 / 500 480 / 480 Other: # Voids 6 2 Date of Last Bowel Movement 03/13/18 03/13/18 03/13/18 # Bowel Movements 2 GENERAL: MBMN,NAD SKIN: Warm and dry. HEAD: Normocephalic. EYES: No scleral icterus. No injection or drainage. NECK: Supple, trachea midline. No JVD or lymphadenopathy. CARDIOVASCULAR: Regular rate and rhythm without murmurs, gallops, or rubs. RESPIRATORY: Breath sounds equal bilaterally. No accessory muscle use. GASTROINTESTINAL: Abdomen soft, non-tender, nondistended. MUSCULOSKELETAL: No cyanosis, or edema. BACK: Nontender without obvious deformity. No CVA tenderness. Assessment and Plan - Plan IMPRESSION: 1. Right lower lobe density with obstruction in the right lower lobe. Need to rule out endobronchial lesion. 2. Weight loss. 3. Chronic obstructive pulmonary disease. 4. Nicotine use 5. Occipital lobe lesion. 5. Possible cholecystitis. 6. Leukocytosis. 7. Small cell lung ca PLAN: Stable on RA Monitor hemoptysis Chemo starting today DW Pt DC plans underway
--- NOTE | 2018-03-15 12:58 | P.PNIM ---
Subjective Interval history: F/up multiple medical problems. Afib with rvr. RLL mass, AF, brain mass, small cell CA likely with brain mets. Edema Edema in his legs and scrotum is improving. He was however complaining of some chest pain earlier today. Discussed with Mrs. nova will check troponin do EKG. Also this was seen with 6 beats of V. tach on telemetry. Her potassium is low replaced. Keep potassium more than 4 and magnesium more than 2. Increase daily potassium. With some shortness of breath however he is saturating well on room air at this time. No fever or chills. Nonproductive cough. Plan to start chemo and radiation. 03-13 HAS BEEN SEEN BY CARDIOLOGY MEDS HAVE BEEN ADJUSTED STILL HAS SWELLING IN BL LE AND SOME SCROTAL SWELLING DW RN AND PT AND CM AND ONCOLOGY AND CARDIOLOGY A.m. labs 03-14 MEDS ADJUSTED BY CARDIOLOGY HOPEFULLY CAN DC TO HOME TOMORROW DW RN AND PT AND CM AND ONCOLOGY AM LABS NO NEED FOR HHC AT THIS TIME 03-15 CLEARED BY ALL CLEARED BY ONCOLOGY AND PULMONARY HAS SMALL CELL LUNG CANCER DC TO HOME TODAY HAS CHRONIC PAIN NEEDS TO FOLLOW WITH PAIN MANAGEMENT FOR PAIN CONTROL Physical Exam Vital signs: Vital Signs 03/14/18 13:35 03/14/18 14:22 03/14/18 15:00 Temperature Pulse Rate 83 Respiratory Rate 20 18 Blood Pressure Pulse Oximetry 03/14/18 17:10 03/14/18 20:00 03/14/18 20:11 Temperature 98.1 F 98.2 F Pulse Rate 79 92 H 92 H Respiratory Rate 20 17 Blood Pressure 146/97 H 151/97 H Pulse Oximetry 99 98 03/15/18 00:00 03/15/18 04:00 03/15/18 04:02 Temperature 97.8 F 97.8 F Pulse Rate 76 69 71 Respiratory Rate 17 17 Blood Pressure 126/77 128/84 Pulse Oximetry 98 100 03/15/18 07:46 03/15/18 08:00 03/15/18 12:23 Temperature 98 F 97.7 F Pulse Rate 88 93 H 93 H Respiratory Rate 18 20 Blood Pressure 146/88 H 142/92 H Pulse Oximetry 100 98 Intake & Output 03/14/18 03/15/18 03/15/18 18:59 06:59 18:59 Intake Total 600 / 600 580 / 580 50 / 50 Balance 600 / 600 580 / 580 50 / 50 Weight 52 kg Intake: IV 100 / 100 100 / 100 50 / 50 Zosyn 3.375 GM Premix 50 ML @ 100 / 100 100 / 100 50 / 50 100 mls/hr IV.SIG Q6H SUSIE Rx#: [id number] Oral 500 / 500 480 / 480 Other: # Voids 6 2 Date of Last Bowel Movement 03/13/18 03/13/18 03/13/18 # Bowel Movements 2 Narrative: GENERAL: Awake and alert talkative and cooperative SKIN: Warm and dry. HEAD: Atraumatic. Normocephalic. EYES: Pupils equal and round. No scleral icterus. No injection or drainage. ENT: No nasal bleeding or discharge. Mucous membranes pink and moist. NECK: Trachea midline. No JVD. CARDIOVASCULAR: IRRegular rate and rhythm. S1-S2 no S3 or S4 RESPIRATORY: No accessory muscle use. Clear to auscultation. Breath sounds equal bilaterally. GASTROINTESTINAL: Abdomen soft, non-tender, nondistended. Hepatic and splenic margins not palpable. MUSCULOSKELETAL: Extremities without clubbing, cyanosis. +2-3 bilateral lower extremity edema appears chronic --no obvious deformities. NEUROLOGICAL: Awake and alert. No obvious cranial nerve deficits. Motor grossly within normal limits. 4 out of 5 muscle strength in the arms and legs. Normal speech. PSYCHIATRIC: INAppropriate mood and affect; insight and judgment ABnormal. Results - Labs CBC & Chem 7: 03/15/18 04:00 03/15/18 04:00 Laboratory Results - last 24 hr 03/14/18 03/15/18 03/15/18 04:10 04:00 04:00 WBC 11.8 H RBC 4.21 L Hgb 10.8 L Hct 34.7 L MCV 82.3 MCH 25.6 L MCHC 31.1 L RDW 17.8 H Plt Count 378 MPV 8.4 Neut % (Auto) 89.1 H Lymph % (Auto) 9.0 [place] % (Auto) 1.7 Eos % (Auto) 0.1 Baso % (Auto) 0.1 Neut # (Auto) 10.5 H Lymph # (Auto) 1.1 [place] # (Auto) 0.2 Eos # (Auto) 0.0 Baso # (Auto) 0.0 WBC Differential . Differential Comment Auto diff final Sodium 138 Potassium 3.5 Chloride 94 L Carbon Dioxide 39.5 H Anion Gap 5 BUN 25 H Creatinine 0.80 Estimated GFR Greater than 89 Random Glucose 103 Hemoglobin A1c 5.9 Calcium 7.9 L Phosphorus 3.0 Magnesium 2.0 Total Bilirubin 0.3 AST 36 ALT 39 Alkaline Phosphatase 66 Total Protein 5.5 L Albumin 2.1 L - Imaging Chest X-Ray 03/01/18 20:39 CONCLUSION: Left mid and lower lung lobar consolidation. Venous Doppler Study 03/01/18 20:39 CONCLUSION: 1. The study is negative for bilateral lower extremity deep venous thrombosis. Chest CTA 03/01/18 21:06 CONCLUSION: 1. This study is negative for pulmonary embolism. 2. Dense consolidation in the right lower lobe without air bronchograms and with truncation of the bronchus to the right lower lobe. This suggests an obstructing lesion. Recommend direct visualization with bronchoscopy. 3. Multiple right-sided pleural and subpleural nodules measuring up to 2 cm in size. 4. Scattered areas of subcutaneous and deep soft tissue gas in the low neck and supraclavicular region. Abdomen/Pelvis CT 03/01/18 21:29 CONCLUSION: 1. Hepatomegaly without focal lesion. 2. Prominent amount of pericholecystic fluid without calcified gallstones suggests possible acalculous cholecystitis. 3. Abnormal appearance to the right lower lung, described on CT pulmonary angiogram report. 4. Bilateral mildly prominent inguinal lymph nodes. 5. Moderately distended stomach. Head CT 03/01/18 21:38 CONCLUSION: 1. Findings suggest a 6 mm mass in the left occipital white matter. Recommend further characterization using MRI with and without contrast. Gallbladder Ultrasound 03/02/18 00:00 CONCLUSION: 1. No evidence of gallstones or biliary tract obstruction. 2. There is thickening of the gallbladder wall 9 mm suggestive of at least chronic gallbladder disease. 3. Increased echogenicity of the liver parenchyma suggestive of fatty infiltration and/or hepatocellular disease. Head MRI 03/02/18 00:00 CONCLUSION: 1. The examination demonstrates a 0.8 x 0.8 x 0.8 mm homogeneously enhancing mass in the subependymal region of the posterior horn of the left lateral ventricle. Primary consideration would be a focal metastatic lesion. 2. There are some scattered punctate areas of abnormal restricted diffusion signal in the watershed distribution posteriorly on the left. 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 Chest X-Ray 03/03/18 06:00 CONCLUSION: Right basilar lung consolidation and pleural effusion. Findings similar to March 01. Left lung remains clear. Chest X-Ray 03/04/18 06:00 CONCLUSION: No significant change right base consolidation with small to moderate pleural effusion and mild volume loss. Chest X-Ray 03/04/18 11:27 CONCLUSION: Right pleural effusion and the right lung base compressive collapse and/or consolidation not significantly changed. Bone Scan Nuclear Medicine 03/09/18 00:00 CONCLUSION: No evidence of metastatic disease. Port Line Insertion 03/09/18 00:00 CONCLUSION: - Procedures Status post port placement LUNG BIOPSY Assessment and Plan - Plan Mr. Mendez is a 62 yo M who presented with chest pain and shortness of breath; patient found to have A fib with RVR with signs of sepsis. Pulmonary and brain lesions suspicious for malignancy on imaging. Patient had BAL and lung biopsy by pulm. Lung biopsy with small cell lung CA. Oncology consulted. Afib with RVR initially; patient titrated off of amiodarone and is currently rate controlled with Metoprolol -Continue daily Metoprolol 25mg BID, PRN metoprolol IV -Continue telemetry. 2D ECHO reviewed with Systolic CHF with ED of 40-45% -Initiate anticoagulation following bronchoscopy when cleared by pulm , gi and hem/onc. Patient with small cell ca with mets to occipital lobe 03/12 Complained of chest pain earlier today noted witj 6 beats of Vtach , K is low replaced. Do EKG and check trops. 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 Presented with Right lower lobe density concerning for malignancy. Chronic COPD. Suspect malignancy/metastatic disease w/ post-obstructive pneumonia Weaned to RA Had Bronch Obstructing mass at RLL bronchus and Lung bx SSLC -Will empirically treat for pneumonia-Zosyn -Continue Hydrocotisone 100mg IV qhrs. Titrated. -Pulmonology consulted-s/p Bronchoscopy, ff -Continue to monitor O2 saturations. 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 A bronchoscopy and biopsy of right lower lobe lung mass showed small cell lung carcinoma. CT abdomen and pelvis did not show obvious metastatic disease. Plan for bone scan to evaluate his back pain to see if he has any metastatic disease in the bone. I told the patient he has stage IV metastatic lung cancer and it is not a curable disease. Palliative chemotherapy and radiation will likely prolong his survival by several months. HAD CHEMO FINISH CAN DC TO HOME OTMORROW Occipital lobe lesion concerning for malignancy on CT imaging -Neurosurgery consulted -lesion not easily visible; MRI brain ordered for further characterization MRI showed an 8 mm mass in the subependymal region of posterior horn of the left lateral ventricle. Patient with small cell Ca with occipital lobe mets Met septic criteria on admission (HR 130, WBC 28.5K) with suspected pulmonary source. Lactic acid 3 initially. s/p IV hydration and pressure support -Continue to monitor CBC/leukocytosis while treating suspected sepsis/pneumonia -Continue monitor blood cultures (negative to date) Hepatomegaly and acalculous cholecystis Hep C CT imaging with suggestion of hepatomegaly and acalculous cholecystis. Associated LFT's with mild transaminase elevations. Hep C antibody +. Hep C can be addressed as outpatient. US gallbladder- thickening of gallbladder wall to 9mm suggestive of disease, increased echogenicity of parenchyma suggestive of fatty infiltration or other liver disease -GI consulted -initial plan for liver biopsy deferred due to bronchoscopy/biopsy. Possibly infection related vs drug induced due to IVDU -monitor labs, supportive care. Liver workup. Chronic pain -Continue Oxycodone 30mg q4hrs PRN -Morphine increased to 6mg IV q 4hrs PRN LE edema, scrotal edema. Recent Doppler US legs is neg. Contiue daily pO lasix 40 mg and monitor kidney function and UOP closely. Repeat BMP . 2D ECHO reviewed with Systolic CHF with ED of 40% Being diuresed DVT PPX -SCD's - Lovenox Hypokalemia will replace- AGAIN REPLACE ADJUST MEDS MEDS ADJUSTED BY CARDIOLOGY AM LABS Code Status: Full code DC plan Biopsy results with small cell lung carcinoma, oncology consulted. Port placement and plan for radiation Pending improvement and clearance by consultants DC TO HOME TODAY Code Status: FULL CODE Discussed Condition With: RN AND PT AND ONCOLOGY AND PULMONARY Discharge Planning: Once cleared by all
--- NOTE | 2018-03-15 13:15 | P.DS ---
Date of admission: 03/01/18 22:32 Primary care physician: UNKNOWN Attending physician on discharge: Elijah Jaramillo Anticipated date of discharge: 03/15/18 Brief History from admission: 62-year-old male who presented to ER with right-sided chest pain were on for a few days with some shortness of breath. He has not been feeling well for the last 2 weeks with progressive weakness which is generalized. Patient is also lost weight about 50-60 pounds in the last 6 months which is unintentional. He denies any nausea vomiting or diarrhea. Denies any melena or rectal bleeding. Patient was found to be in A. fib with RVR on arrival in the ER. He received IV Lopressor and subsequently dropped his blood pressure and she was started on Levophed for pressor support. After obtaining blood cultures patient was started on IV Zosyn. He underwent imaging studies which revealed hepatomegaly, right lower lobe consolidation and a question of fluid around the gallbladder suggesting cholecystitis. Head CT revealed a lesion in the occipital lobe. Patient was accepted for admission by critical care medicine service. When I evaluated the patient in the ER he was laying in the ER stretcher appeared comfortable not in acute distress though was diaphoretic. [place] [facility]. 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 (8) Metastatic lung carcinoma Status: Acute (9) Nonsustained ventricular tachycardia Status: Chronic (10) Pain Status: Chronic (11) Paroxysmal atrial fibrillation Status: Chronic (12) Pneumonia Status: Acute (13) Septic shock Status: Acute (14) Shortness of breath Status: Acute (15) Cardiomyopathy Status: Chronic DS: Medications - Discharge Medications Prescriptions: amiodarone 400 mg PO DAILY #60 tab aspirin 81 mg PO DAILY #30 tab clonidine HCl [Catapres] 0.1 mg PO Q12HR #60 tab docusate sodium [DOK] 100 mg PO BID #60 cap furosemide 40 mg PO BID@0900,1800 #60 tab ipratropium-albuterol 1 amp NEB Q2HR NEB PRN #180 amp PRN Reason: Wheezing lactulose 30 ml PO DAILY PRN #900 ml PRN Reason: Severe Consitipation lisinopril 10 mg PO BID #60 tab magnesium oxide 400 mg PO BID #60 tab meloxicam 15 mg PO DAILY #30 tab metoprolol tartrate 100 mg PO BID #60 tab potassium chloride [Klor-Con 10] 40 meq PO BID #240 tab prednisone See Taper PO PER PKG DIR #1 each sennosides-docusate sodium [Senna Plus] 1 tab PO BID #120 tab DS: Summary Hospital Course: F/up multiple medical problems. Afib with rvr. RLL mass, AF, brain mass, small cell CA likely with brain mets. Edema Edema in his legs and scrotum is improving. He was however complaining of some chest pain earlier today. Discussed with Mrs. nova will check troponin do EKG. Also this was seen with 6 beats of V. tach on telemetry. Her potassium is low replaced. Keep potassium more than 4 and magnesium more than 2. Increase daily potassium. With some shortness of breath however he is saturating well on room air at this time. No fever or chills. Nonproductive cough. Plan to start chemo and radiation. 7 HAS BEEN SEEN BY CARDIOLOGY MEDS HAVE BEEN ADJUSTED STILL HAS SWELLING IN BL LE AND SOME SCROTAL SWELLING DW RN AND PT AND CM AND ONCOLOGY AND CARDIOLOGY A.m. labs 03-14 MEDS ADJUSTED BY CARDIOLOGY HOPEFULLY CAN DC TO HOME TOMORROW DW RN AND PT AND CM AND ONCOLOGY AM LABS NO NEED FOR HHC AT THIS TIME 03-15 CLEARED BY ALL CLEARED BY ONCOLOGY AND PULMONARY HAS SMALL CELL LUNG CANCER DC TO HOME TODAY HAS CHRONIC PAIN NEEDS TO FOLLOW WITH PAIN MANAGEMENT FOR PAIN CONTROL - Time Spent with Patient Total time spent providing and/or coordinating discharge services: Greater than 30 minutes Exam Vital signs: Vital Signs 03/14/18 13:35 03/14/18 14:22 03/14/18 15:00 Temperature Pulse Rate 83 Respiratory Rate 20 18 Blood Pressure Pulse Oximetry 03/14/18 17:10 03/14/18 20:00 03/14/18 20:11 Temperature 98.1 F 98.2 F Pulse Rate 79 92 H 92 H Respiratory Rate 20 17 Blood Pressure 146/97 H 151/97 H Pulse Oximetry 99 98 03/15/18 00:00 03/15/18 04:00 03/15/18 04:02 Temperature 97.8 F 97.8 F Pulse Rate 76 69 71 Respiratory Rate 17 17 Blood Pressure 126/77 128/84 Pulse Oximetry 98 100 03/15/18 07:46 03/15/18 08:00 03/15/18 12:23 Temperature 98 F 97.7 F Pulse Rate 88 93 H 93 H Respiratory Rate 18 20 Blood Pressure 146/88 H 142/92 H Pulse Oximetry 100 98 Intake & Output 03/14/18 03/15/18 03/15/18 18:59 06:59 18:59 Intake Total 600 / 600 580 / 580 50 / 50 Balance 600 / 600 580 / 580 50 / 50 Weight 52 kg Intake: IV 100 / 100 100 / 100 50 / 50 Zosyn 3.375 GM Premix 50 ML @ 100 / 100 100 / 100 50 / 50 100 mls/hr IV.SIG Q6H SUSIE Rx#: [id number] Oral 500 / 500 480 / 480 Other: # Voids 6 2 Date of Last Bowel Movement 03/13/18 03/13/18 03/13/18 # Bowel Movements 2 Narrative: GENERAL: Awake and alert talkative and cooperative SKIN: Warm and dry. HEAD: Atraumatic. Normocephalic. EYES: Pupils equal and round. No scleral icterus. No injection or drainage. ENT: No nasal bleeding or discharge. Mucous membranes pink and moist. NECK: Trachea midline. No JVD. CARDIOVASCULAR: IRRegular rate and rhythm. S1-S2 no S3 or S4 RESPIRATORY: No accessory muscle use. Clear to auscultation. Breath sounds equal bilaterally. GASTROINTESTINAL: Abdomen soft, non-tender, nondistended. Hepatic and splenic margins not palpable. MUSCULOSKELETAL: Extremities without clubbing, cyanosis. +2-3 bilateral lower extremity edema appears chronic --no obvious deformities. NEUROLOGICAL: Awake and alert. No obvious cranial nerve deficits. Motor grossly within normal limits. 4 out of 5 muscle strength in the arms and legs. Normal speech. PSYCHIATRIC: INAppropriate mood and affect; insight and judgment ABnormal. Results Procedures completed during hospitalization: Status post port placement LUNG BIOPSY Completed studies during hospitalization: Chest X-Ray 03/01/18 20:39 CONCLUSION: Left mid and lower lung lobar consolidation. Venous Doppler Study 03/01/18 20:39 CONCLUSION: 1. The study is negative for bilateral lower extremity deep venous thrombosis. Chest CTA 03/01/18 21:06 CONCLUSION: 1. This study is negative for pulmonary embolism. 2. Dense consolidation in the right lower lobe without air bronchograms and with truncation of the bronchus to the right lower lobe. This suggests an obstructing lesion. Recommend direct visualization with bronchoscopy. 3. Multiple right-sided pleural and subpleural nodules measuring up to 2 cm in size. 4. Scattered areas of subcutaneous and deep soft tissue gas in the low neck and supraclavicular region. Abdomen/Pelvis CT 03/01/18 21:29 CONCLUSION: 1. Hepatomegaly without focal lesion. 2. Prominent amount of pericholecystic fluid without calcified gallstones suggests possible acalculous cholecystitis. 3. Abnormal appearance to the right lower lung, described on CT pulmonary angiogram report. 4. Bilateral mildly prominent inguinal lymph nodes. 5. Moderately distended stomach. Head CT 03/01/18 21:38 CONCLUSION: 1. Findings suggest a 6 mm mass in the left occipital white matter. Recommend further characterization using MRI with and without contrast. Gallbladder Ultrasound 03/02/18 00:00 CONCLUSION: 1. No evidence of gallstones or biliary tract obstruction. 2. There is thickening of the gallbladder wall 9 mm suggestive of at least chronic gallbladder disease. 3. Increased echogenicity of the liver parenchyma suggestive of fatty infiltration and/or hepatocellular disease. Head MRI 03/02/18 00:00 CONCLUSION: 1. The examination demonstrates a 0.8 x 0.8 x 0.8 mm homogeneously enhancing mass in the subependymal region of the posterior horn of the left lateral ventricle. Primary consideration would be a focal metastatic lesion. 2. There are some scattered punctate areas of abnormal restricted diffusion signal in the watershed distribution posteriorly on the left. 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 Chest X-Ray 03/03/18 06:00 CONCLUSION: Right basilar lung consolidation and pleural effusion. Findings similar to March 01. Left lung remains clear. Chest X-Ray 03/04/18 06:00 CONCLUSION: No significant change right base consolidation with small to moderate pleural effusion and mild volume loss. Chest X-Ray 03/04/18 11:27 CONCLUSION: Right pleural effusion and the right lung base compressive collapse and/or consolidation not significantly changed. Bone Scan Nuclear Medicine 03/09/18 00:00 CONCLUSION: No evidence of metastatic disease. Port Line Insertion 03/09/18 00:00 CONCLUSION: Labs on day of discharge: Labs from last 24 hours 03/15/18 03/15/18 03/14/18 04:00 04:00 04:10 WBC 11.8 H RBC 4.21 L Hgb 10.8 L Hct 34.7 L MCV 82.3 MCH 25.6 L MCHC 31.1 L RDW 17.8 H Plt Count 378 MPV 8.4 Neut % (Auto) 89.1 H Lymph % (Auto) 9.0 [place] % (Auto) 1.7 Eos % (Auto) 0.1 Baso % (Auto) 0.1 Neut # (Auto) 10.5 H Lymph # (Auto) 1.1 [place] # (Auto) 0.2 Eos # (Auto) 0.0 Baso # (Auto) 0.0 WBC Differential . Differential Comment Auto diff final Sodium 138 Potassium 3.5 Chloride 94 L Carbon Dioxide 39.5 H Anion Gap 5 BUN 25 H Creatinine 0.80 Estimated GFR Greater than 89 Random Glucose 103 Hemoglobin A1c 5.9 Calcium 7.9 L Phosphorus 3.0 Magnesium 2.0 Total Bilirubin 0.3 AST 36 ALT 39 Alkaline Phosphatase 66 Total Protein 5.5 L Albumin 2.1 L Preliminary micro results at discharge 03/04/18 11:54 Mycobacterial Culture - Preliminary Bronchial Washings - Right No growth in 1 week 03/04/18 12:09 Fungal Culture - Preliminary Bronchial Washings - Right No growth in 1 week - Impressions ITS Impressions Venous Doppler Study 03/01/18 20:39 CONCLUSION: 1. The study is negative for bilateral lower extremity deep venous thrombosis. Chest CTA 03/01/18 21:06 CONCLUSION: 1. This study is negative for pulmonary embolism. 2. Dense consolidation in the right lower lobe without air bronchograms and with truncation of the bronchus to the right lower lobe. This suggests an obstructing lesion. Recommend direct visualization with bronchoscopy. 3. Multiple right-sided pleural and subpleural nodules measuring up to 2 cm in size. 4. Scattered areas of subcutaneous and deep soft tissue gas in the low neck and supraclavicular region. Abdomen/Pelvis CT 03/01/18 21:29 CONCLUSION: 1. Hepatomegaly without focal lesion. 2. Prominent amount of pericholecystic fluid without calcified gallstones suggests possible acalculous cholecystitis. 3. Abnormal appearance to the right lower lung, described on CT pulmonary angiogram report. 4. Bilateral mildly prominent inguinal lymph nodes. 5. Moderately distended stomach. Head CT 03/01/18 21:38 CONCLUSION: 1. Findings suggest a 6 mm mass in the left occipital white matter. Recommend further characterization using MRI with and without contrast. Gallbladder Ultrasound 03/02/18 00:00 CONCLUSION: 1. No evidence of gallstones or biliary tract obstruction. 2. There is thickening of the gallbladder wall 9 mm suggestive of at least chronic gallbladder disease. 3. Increased echogenicity of the liver parenchyma suggestive of fatty infiltration and/or hepatocellular disease. Head MRI 03/02/18 00:00 CONCLUSION: 1. The examination demonstrates a 0.8 x 0.8 x 0.8 mm homogeneously enhancing mass in the subependymal region of the posterior horn of the left lateral ventricle. Primary consideration would be a focal metastatic lesion. 2. There are some scattered punctate areas of abnormal restricted diffusion signal in the watershed distribution posteriorly on the left. 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 Chest X-Ray 03/04/18 11:27 CONCLUSION: Right pleural effusion and the right lung base compressive collapse and/or consolidation not significantly changed. Bone Scan Nuclear Medicine 03/09/18 00:00 CONCLUSION: No evidence of metastatic disease. Port Line Insertion 03/09/18 00:00 CONCLUSION: Discharge Plan - Discharge Disposition Patient Disposition: 01 Discharge Home - Discharge Condition Condition: Critical - Discharge Order Discharge Orders: Discharge Order (Routine); Ordered 03/15/18 Ordered By: Elijah Jaramillo Oncology Clear for Discharge (Routine); Ordered 03/15/18 Ordered By: Marbella Valera - Discharge Details Anticipated Discharge Date: 03/15/18 Discharge Comment: DC TO HOME - Physicians Team Primary Care Provider: UNKNOWN, Attending Provider: Elijah Jaramillo Other Providers: Gonzalo Bland MD ; Christopher Barajas MD ; Silvano Crowe MD ; Malik Lund MD ; Sb Herrera MD ; Seng Roa MD ; Otoniel Santoyo MD
[2018-03-15] MEDS ORDERED: Heparin Central Flush 100 UNIT/ML 5 ML Vial IV.FLUSH PRN ×2 (14:03)
== END 2018-03-15 14:09 | disposition home or self-care (01) ==
LOC: NEPC 20:16 → NEDA 22:32 → N03 03-02 02:39 → HCIS 03-05 01:20 → HCIN 03-08 18:31
PROVIDERS: ADMIT Hospitalist; ATTEND Hospitalist
DX: Z87.891 Personal history of nicotine dependence; R91.8 Other nonspecific abnormal finding of lung field; Z94.81 Bone marrow transplant status; C34.31 Malignant neoplasm of lower lobe, right bronchus or lung; R16.0 Hepatomegaly, not elsewhere classified; K76.0 Fatty (change of) liver, not elsewhere classified; E87.6 Hypokalemia; I42.9 Cardiomyopathy, unspecified; Z85.72 Personal history of non-Hodgkin lymphomas; R63.4 Abnormal weight loss; A41.9 Sepsis, unspecified organism; C78.2 Secondary malignant neoplasm of pleura; C79.31 Secondary malignant neoplasm of brain; R13.10 Dysphagia, unspecified; G89.29 Other chronic pain; N17.9 Acute kidney failure, unspecified; J18.9 Pneumonia, unspecified organism; M54.9 Dorsalgia, unspecified; N50.89 Other specified disorders of the male genital organs; J44.0 Chronic obstructive pulmonary disease with (acute) lower respiratory infection; R04.2 Hemoptysis; G93.9 Disorder of brain, unspecified; B19.20 Unspecified viral hepatitis C without hepatic coma; I50.20 Unspecified systolic (congestive) heart failure; F11.20 Opioid dependence, uncomplicated; I48.0 Paroxysmal atrial fibrillation; H43.399 Other vitreous opacities, unspecified eye; E87.2 Acidosis; R65.21 Severe sepsis with septic shock; M54.2 Cervicalgia; I47.2 Ventricular tachycardia; K81.1 Chronic cholecystitis

== ENCOUNTER 2018-04-16 18:09 | Inpatient (IN) ==
[2018-04-16] MEDS ORDERED: HYDROmorphone PF Inj 2 MG/ML Vial IV.PUSH ONE (18:38)
--- NOTE | 2018-04-16 19:19 | ED ---
HPI General Chief complaint: Pain: Chronic Stated complaint: Medical Time Seen by Provider: 04/16/18 18:51 Source: patient Mode of arrival: other Limitations: no limitations History of Present Illness HPI Narrative: The pain 62-year-old male who presents to the emergency department for shortness of breath and generalized weakness. The patient has a history of lung cancer and is currently undergoing radiation therapy. The patient was going to start chemotherapy this week, however, was too weak to start chemotherapy. The patient states he has not been out of bed for the last 2 days, is unable to ambulate secondary to generalized weakness, and notes increasing shortness of breath. The patient has a history of a mass in the right lung with fluid and now notes a mass in the left lung. He notes increasing shortness of breath. The patient states he was advised by his oncologist, Dr. Herrera, to come to the emergency department and be admitted for possible drainage of the lungs and to start chemotherapy. He denies any fever. He does note intractable nausea and vomiting with decreased oral intake. Symptoms are moderate. He is followed by pain interventionalists and takes morphine and Roxicodone daily, denies having a primary physician. Related Data Home Medications Medication Instructions Recorded Confirmed docusate sodium 100 mg PO BID 03/03/18 04/16/18 morphine [MS Contin] 100 mg PO Q8H 03/03/18 04/16/18 oxycodone 30 mg PO Q4-6H PRN MDD 2.5 tablets 03/03/18 04/16/18 Previous Rx's Medication Instructions Recorded amiodarone 400 mg PO DAILY #60 tab 03/15/18 aspirin 81 mg PO DAILY #30 tab 03/15/18 clonidine HCl [Catapres] 0.1 mg PO Q12HR #60 tab 03/15/18 furosemide 40 mg PO BID@0900,1800 #60 tab 03/15/18 ipratropium-albuterol 1 amp NEB Q2HR NEB PRN #180 amp 03/15/18 lactulose 30 ml PO DAILY PRN #900 ml 03/15/18 lisinopril 10 mg PO BID #60 tab 03/15/18 meloxicam 15 mg PO DAILY #30 tab 03/15/18 metoprolol tartrate 100 mg PO BID #60 tab 03/15/18 potassium chloride [Klor-Con 10] 40 meq PO BID #240 tab 03/15/18 sennosides-docusate sodium [Senna 1 tab PO BID #120 tab 03/15/18 Plus] Allergies Allergy/AdvReac Type Severity Reaction Status Date / Time No Known Allergies Allergy Verified 04/16/18 18:29 Review of Systems ROS: all other systems reviewed are negative [facility] Medical History Medical History Edema (Chronic) Back pain (Chronic) Lung cancer (Acute) Port-A-Cath in place (Acute) COPD (chronic obstructive pulmonary disease) (Acute) History of osteomyelitis (Acute) Neck pain (Acute) Surgical History Surgical History H/O hernia repair (Resolved) Social History Social History Substance History: No History of Abuse Smoking Status: Former smoker Tobacco Type: Cigarettes How Often Do You Have a Drink Containing Alcohol: Never Recent Travel in [facility] within the Last 8 Weeks: No Recent Out of Country Travel within the Last 8 Weeks: No Immunization History Tetanus Immunization: <5 Years Exam Narrative Exam Narrative: GENERAL: Awake, alert, 62-year-old male who appears his stated age and in mild respiratory distress. Cachectic build. SKIN: Focused skin assessment warm/dry. HEAD: Atraumatic. Normocephalic. EYES: No injection or drainage ENT: No nasal bleeding or discharge. Dry mucous membranes per NECK: Trachea midline. No JVD. CARDIOVASCULAR: Port in place right chest wall. Tachycardic with a heart rate in the 120s. RESPIRATORY: No accessory muscle use. Diminished breath sounds in the right base and left base with expiratory wheezes noted. GASTROINTESTINAL: Abdomen soft, non-tender, nondistended. MUSCULOSKELETAL: No obvious deformities. No clubbing. No cyanosis. No edema. Cachectic extremities. NEUROLOGICAL: Awake and alert. No obvious cranial nerve deficits. Motor grossly within normal limits. Normal speech. Nonfocal per PSYCHIATRIC: Appropriate mood and affect; insight and judgment normal. Course Initial Documented Vital Signs Temperature 98.3 F 04/16/18 18:15 Pulse Rate 91 H 04/16/18 18:15 Respiratory Rate 16 04/16/18 18:15 Blood Pressure 150/85 H 04/16/18 18:15 Pulse Oximetry 100 04/16/18 18:15 Last Documented Vital Signs Temperature 98.3 F 04/16/18 18:15 Pulse Rate 88 04/16/18 18:18 Respiratory Rate 20 04/16/18 20:31 Blood Pressure 146/72 H 04/16/18 18:18 Pulse Oximetry 98 04/16/18 18:18 Medical Decision Making MDM Narrative Medical decision making narrative: The patient's port was accessed. The patient was ordered Dilaudid by the previous physician. Chest x-ray was obtained. The patient was placed on cardiac telemetry monitoring and continuous pulse oximetry monitoring. Laboratory evaluation and UA were sent to lab. I had a discussion with the patient regarding hospice, he states he has been evaluated by hospice several times, states he is not ready for hospice , wants to continue chemotherapy. Chest x-ray reveals right pleural effusion and collapse of the right middle and lower lobes, possible infiltrate. Therefore, patient was covered with cefepime and Zithromax his white count is 23.1. The patient will be admitted to the medical service, may benefit from consultation with his oncologist, Dr. Herrera. Medical Screen Exam Complete: Yes Emergency Medical Condition: Yes Differential Diagnosis Differential Diagnosis: Differential diagnosis includes dehydration, pulmonary edema, congestive heart failure, pleural effusion, malignant effusion, acute renal failure, electrolyte abnormality, inability to care for self, debility, end-of-life care. Lab Data Lab results reviewed: Yes I reviewed the patient's lab results. Lab results narrative: White count is elevated at 23.9. Result diagrams: 04/16/18 19:38 04/16/18 19:38 Lab Results 04/16/18 04/16/18 04/16/18 Range/Units 19:38 19:38 19:38 WBC 23.9 H (4.0-11.0) th/mm3 RBC 4.08 L (4.50-5.90) mil/mm3 Hgb 10.9 L (13.0-17.0) gm/dL Hct 33.4 L (39.0-51.0) % MCV 81.9 (80.0-100.0) fL MCH 26.6 L (27.0-34.0) pg MCHC 32.5 (32.0-36.0) % RDW 21.1 H (11.6-17.2) % Plt Count 419 (150-450) th/mm3 MPV 7.2 (7.0-11.0) fL Neut % (Auto) 88.1 H (16.0-70.0) % Lymph % (Auto) 4.2 L (9.0-44.0) % [place] % (Auto) 7.1 (0.0-8.0) % Eos % (Auto) 0.3 (0.0-4.0) % Baso % (Auto) 0.3 (0.0-2.0) % Neut # (Auto) 21.1 H (1.8-7.7) th/mm3 Lymph # (Auto) 1.0 (1.0-4.8) th/mm3 [place] # (Auto) 1.7 H (0.0-0.9) th/mm3 Eos # (Auto) 0.1 (0.0-0.4) th/mm3 Baso # (Auto) 0.1 (0.0-0.2) th/mm3 WBC Differential . Differential Comment Auto diff final PT 11.7 H (9.8-11.6) sec INR 1.2 Ratio APTT 21.6 L (24.3-30.1) sec Sodium 138 (136-145) meq/L Potassium 3.7 (3.5-5.1) meq/L Chloride 103 (98-107) meq/L Carbon Dioxide 26.4 (21.0-32.0) meq/L Anion Gap 9 (5-15) meq/L BUN 21 H (7-18) mg/dL Creatinine 0.90 (0.60-1.30) mg/dL Estimated GFR 85 L (>89) mL/min Random Glucose 90 (74-106) mg/dL Calcium 8.1 L (8.5-10.1) mg/dL Magnesium 1.6 (1.5-2.5) mg/dL Total Bilirubin 0.2 (0.2-1.0) mg/dL AST 35 (15-37) U/L ALT 25 (12-78) U/L Alkaline Phosphatase 103 (45-117) U/L Troponin I Less than 0.02 L (0.02-0.05) ng/mL B-Natriuretic Peptide (0-100) pg/mL Total Protein 7.0 (6.4-8.2) g/dL Albumin 2.2 L (3.4-5.0) g/dL 04/16/18 Range/Units 19:38 WBC (4.0-11.0) th/mm3 RBC (4.50-5.90) mil/mm3 Hgb (13.0-17.0) gm/dL Hct (39.0-51.0) % MCV (80.0-100.0) fL MCH (27.0-34.0) pg MCHC (32.0-36.0) % RDW (11.6-17.2) % Plt Count (150-450) th/mm3 MPV (7.0-11.0) fL Neut % (Auto) (16.0-70.0) % Lymph % (Auto) (9.0-44.0) % [place] % (Auto) (0.0-8.0) % Eos % (Auto) (0.0-4.0) % Baso % (Auto) (0.0-2.0) % Neut # (Auto) (1.8-7.7) th/mm3 Lymph # (Auto) (1.0-4.8) th/mm3 [place] # (Auto) (0.0-0.9) th/mm3 Eos # (Auto) (0.0-0.4) th/mm3 Baso # (Auto) (0.0-0.2) th/mm3 WBC Differential Differential Comment PT (9.8-11.6) sec INR Ratio APTT (24.3-30.1) sec Sodium (136-145) meq/L Potassium (3.5-5.1) meq/L Chloride (98-107) meq/L Carbon Dioxide (21.0-32.0) meq/L Anion Gap (5-15) meq/L BUN (7-18) mg/dL Creatinine (0.60-1.30) mg/dL Estimated GFR (>89) mL/min Random Glucose (74-106) mg/dL Calcium (8.5-10.1) mg/dL Magnesium (1.5-2.5) mg/dL Total Bilirubin (0.2-1.0) mg/dL AST (15-37) U/L ALT (12-78) U/L Alkaline Phosphatase (45-117) U/L Troponin I (0.02-0.05) ng/mL B-Natriuretic Peptide 549 H (0-100) pg/mL Total Protein (6.4-8.2) g/dL Albumin (3.4-5.0) g/dL Imaging Data Radiologist's impression: Chest X-Ray 04/16/18 19:13 CONCLUSION: Combined collapse right middle lobe and right lower lobe with a tiny right pleural effusion. Discharge Plan Discharge Disposition Patient Disposition: 30 Still Patient Discharge Condition Condition: Stable Discharge Details Diagnosis: Pneumonia, Metastatic lung carcinoma, Shortness of breath Physicians Team ED Provider: Carlos Alberto Cross Primary Care Provider: UNKNOWN, Rxs /Orders / Referrals /Forms Prescriptions: No Action oxycodone 30 mg Tablet 30 mg PO Q4-6H MDD 2.5 tablets PRN (Reason: Chronic Pain) RF: 0 morphine [MS Contin] 100 mg Tablet Extended Release 100 mg PO Q8H RF: 0 docusate sodium 100 mg Tablet 100 mg PO BID RF: 0 furosemide 40 mg Tablet 40 mg PO BID@0900,1800 Qty: 60 RF: 0 clonidine HCl [Catapres] 0.1 mg Tablet 0.1 mg PO Q12HR Qty: 60 RF: 0 ipratropium-albuterol 0.5 mg-3 mg(2.5 mg base)/3 mL Solution For Nebulization 1 amp NEB Q2HR NEB PRN (Reason: Wheezing) Qty: 180 RF: 0 metoprolol tartrate 100 mg Tablet 100 mg PO BID Qty: 60 RF: 0 amiodarone 200 mg Tablet 400 mg PO DAILY Qty: 60 RF: 0 sennosides-docusate sodium [Senna Plus] 8.6-50 mg Tablet 1 tab PO BID Qty: 120 RF: 0 potassium chloride [Klor-Con 10] 10 mEq Tablet Extended Release 40 meq PO BID Qty: 240 RF: 0 aspirin 81 mg Tablet,Delayed Release (Dr/Ec) 81 mg PO DAILY Qty: 30 RF: 0 lisinopril 10 mg Tablet 10 mg PO BID Qty: 60 RF: 0 lactulose 20 gram/30 mL Solution 30 ml PO DAILY PRN (Reason: Severe Consitipation) Qty: 900 RF: 0 meloxicam tablet 15 mg PO DAILY Qty: 30 RF: 0 Discharge Interventions Interventions: Vital Signs Last Done: 04/16/18 18:18 Status ED Status: Pending Admission
[2018-04-16 19:51] LABS: Baso # (Auto) 0.1 th/mm3 (0.0-0.2); Baso % (Auto) 0.3 % (0.0-2.0); Eos # (Auto) 0.1 th/mm3 (0.0-0.4); Eos % (Auto) 0.3 % (0.0-4.0); Hematocrit 33.4 % (39.0-51.0); Hemoglobin 10.9 gm/dL (13.0-17.0); Lymph % (Auto) 4.2 % (9.0-44.0); Mean Corpuscular HGB Conc 32.5 % (32.0-36.0); Mean Corpuscular Hemoglobin 26.6 pg (27.0-34.0); Mean Corpuscular Volume 81.9 fL (80.0-100.0); Mean Platelet Volume 7.2 fL (7.0-11.0); Mono # (Auto) 1.7 th/mm3 (0.0-0.9); Mono % (Auto) 7.1 % (0.0-8.0); Neut # (Auto) 21.1 th/mm3 (1.8-7.7); Neut % (Auto) 88.1 % (16.0-70.0); Platelet Count 419 th/mm3 (150-450); Red Blood Count 4.08 mil/mm3 (4.50-5.90); Red Cell Distribution Width 21.1 % (11.6-17.2); White Blood Count 23.9 th/mm3 (4.0-11.0)
[2018-04-16 20:01] LABS: Activated Partial Thrombo Time 21.6 sec (24.3-30.1); INR 1.2 Ratio; Prothrombin Time 11.7 sec (9.8-11.6)
--- NOTE | 2018-04-16 20:04 | XR ---
EXAM DATE: 04/16/2018 7:54 PM EDT AGE/SEX: 62 years / Male INDICATIONS: Shortness of breath, cough and general weakness. CLINICAL DATA: This is the patient's initial encounter. Patient reports that signs and symptoms have been present for 1 day and indicates a pain score of 0/10. MEDICAL/SURGICAL HISTORY: Carcinoma, lung. . Port of chemotherapy. COMPARISON: C, CHEST 1V SINGLE AP, 03/04/2018. . FINDINGS: Right pleural effusion is smaller. There appears to be combined collapse right middle lobe and lower lobe. Right IJ Calluo-n-Nxie is present with tip overlapping the expected region of the SVC. No defi nite pneumothorax is seen for technique. CONCLUSION: Combined collapse right middle lobe and right lower lobe with a tiny right pleural effusion. Electronically signed by: Sumanth Matos MD 04/16/2018 8:03 PM EDT
[2018-04-16] MEDS ORDERED: Azithromycin Inj 500 MG in Sodium Chlor 0.9% Inj 250 ML IV.SIG ONE (20:07)
[2018-04-16 20:17] LABS: Albumin 2.2 g/dL (3.4-5.0); Anion Gap 9 meq/L (5-15); Aspartate Aminotransferase 35 U/L (15-37); Blood Urea Nitrogen 21 mg/dL (7-18); Calcium 8.1 mg/dL (8.5-10.1); Carbon Dioxide 26.4 meq/L (21.0-32.0); Chloride 103 meq/L (98-107); Glomerular Filtration Rate 85 mL/min (>89); Glucose,Random 90 mg/dL (74-106); Magnesium 1.6 mg/dL (1.5-2.5); Potassium 3.7 meq/L (3.5-5.1); Sodium 138 meq/L (136-145)
[2018-04-16 20:24] LABS: Alanine Aminotransferase 25 U/L (12-78); Alkaline Phosphatase 103 U/L (45-117)
[2018-04-16] MEDS ORDERED: HYDROmorphone PF Inj 2 MG/ML Vial IV.PUSH PRN (21:04)
[2018-04-16] MEDS ORDERED: Bisacodyl 10 MG Supp RECTAL PRN (21:05)
[2018-04-16] MEDS ORDERED: Acetaminophen 325 MG Tablet PO PRN (21:05)
--- NOTE | 2018-04-16 21:10 | P.HPIM ---
History of Present Illness Primary Care Physician: UNKNOWN History of Present Illness: This is a 62-year-old male with PMH of HTN, COPD, Chronic Pain and Lung CA w/ Brain Metastasis who presented to the ER w/ c/o SOB, generalized weakness and intractable pain. Follows w/ Dr. Herrera w/ Oncology, states he underwent brain radiation and was scheduled to have chemo last week however he's been too weak to get treatment. Notes progressive SOB and worsening generalized pain/ weakness. Denies fever or chills. Notes intermittent cough w/ green-colored sputum. On arrival, BP 146/72, HR 88, O2 sat 98% on RA, Afebrile. WBC 23.9. INR 1.2. Chemistry essentially unremarkable. BNP 549. Troponin negative. CXR with collapse of right middle lobe and right lower lobe, tiny right pleural effusion. S/p Cefepime/Zithro in ER. - Diagnosis (1) SIRS (systemic inflammatory response syndrome) (2) PNA (pneumonia) (3) Lung cancer (4) Intractable pain Inpatient Certification: I certify that the inpatient services were ordered in accordance with Medicare regulations governing the order. This includes certification that hospital inpatient services are reasonable and necessary and in the case of services not specified as inpatient-only under 42 CFR 419.22(n), that they are appropriately provided as inpatient services in accordance to with the 2-midnight benchmark under 43 CFR 412.3(e) Estimated Total Length of Stay (Days): 2 Plans for Post Hospital Care: Not yet determined Review of Systems PAST FAMILY HISTORY: Reviewed. No h/o DM or CAD All other systems reviewed negative except as stated in HPI [facility] - History History Provided By: Patient - Medical History Medical History: Medical History (Last Updated 04/16/18 @ 19:06 by Adela Armenta) Edema (Chronic) Back pain (Chronic) Lung cancer Port-A-Cath in place COPD (chronic obstructive pulmonary disease) History of osteomyelitis Neck pain - Surgical History Surgical History: Surgical History (Last Reviewed 03/14/18 @ 08:21 by Jackelin Hampton) H/O hernia repair (Resolved) - Family History Family History: Family History (Last Reviewed 03/12/18 @ 12:10 by Sridhar Blunt) Grandparent Cancer Father H/O ETOH abuse Mother Alzheimers disease - Tobacco History Smoking Status: Former smoker Tobacco Type: Cigarettes - Alcohol History How Often Do You Have a Drink Containing Alcohol: Never - Substance Use History Substance History: No History of Abuse - Travel History Recent Travel in the [place] Within the Last 8 Weeks: No Recent Travel Out of the Country Within the Last 8 Weeks: No - Immunization History Tetanus Immunization: <5 Years Medications and Allergies Allergies Allergy/AdvReac Type Severity Reaction Status Date / Time No Known Allergies Allergy Verified 04/16/18 18:29 Home Medications Medication Instructions Recorded Confirmed Type docusate sodium 100 mg PO BID 03/03/18 04/16/18 History morphine [MS Contin] 100 mg PO Q8H 03/03/18 04/16/18 History oxycodone 30 mg PO Q4-6H PRN MDD 2.5 tablets 03/03/18 04/16/18 History Exam Vital signs: Vital Signs 04/16/18 18:15 04/16/18 18:18 04/16/18 20:31 Temperature 98.3 F Pulse Rate 91 H 88 Respiratory Rate 16 20 20 Blood Pressure 150/85 H 146/72 H Pulse Oximetry 100 98 Intake & Output 04/16/18 04/16/18 04/17/18 06:59 18:59 06:59 Weight 51.71 kg Narrative: PE: GENERAL: Thin, chronically ill-appearing middle-aged white male in no acute distress. SKIN: Focused skin assessment warm and dry. HEENT: PERRLA, EOMI. No scleral icterus or conjunctival pallor. No lid lag or facial droop. CARDIOVASCULAR: Regular rate and rhythm. No obvious murmurs to auscultation. No chest tenderness to palpation. Right [id number]. Left chest wall tenderness to palpation. RESPIRATORY: No obvious rhonchi or wheezing. Coarse breath sounds bilaterally, right worse than left. GASTROINTESTINAL: Abdomen soft, non-tender, nondistended. BS normal. MUSCULOSKELETAL: Extremities without clubbing, cyanosis, or edema. No obvious deformities. NEUROLOGICAL: Awake, alert and oriented x4. No focal neurologic deficits. Moving both upper and lower extremities spontaneously. PSYCHIATRIC: Appropriate mood and affect. Insight and judgment normal. Results - Labs CBC & Chem 7: 04/16/18 19:38 04/16/18 19:38 Labs: Short CBC 04/16/18 Range/Units 19:38 WBC 23.9 H (4.0-11.0) th/mm3 Hgb 10.9 L (13.0-17.0) gm/dL Hct 33.4 L (39.0-51.0) % Plt Count 419 (150-450) th/mm3 BMP 04/16/18 19:38 Sodium 138 Potassium 3.7 Chloride 103 Carbon Dioxide 26.4 BUN 21 H Creatinine 0.90 Calcium 8.1 L Cardiac Enzymes 04/16/18 Range/Units 19:38 Troponin I Less than 0.02 L (0.02-0.05) ng/mL Liver Function 04/16/18 Range/Units 19:38 Total Bilirubin 0.2 (0.2-1.0) mg/dL AST 35 (15-37) U/L ALT 25 (12-78) U/L Alkaline Phosphatase 103 (45-117) U/L Albumin 2.2 L (3.4-5.0) g/dL - Imaging Impressions Chest X-Ray 04/16/18 19:13 CONCLUSION: Combined collapse right middle lobe and right lower lobe with a tiny right pleural effusion. Caprini VTE Risk Assessment Caprini VTE Risk Assessment: No/Low Risk (score <= 1) VTE Pharmacological Exception Reason: Intracranial lesions Caprini Risk Assessment Model: Point Value = 1 Point Value = 2 Point Value = 3 Point Value = 5 Age 41-60 Minor surgery BMI > 25 kg/m2 Swollen legs Varicose veins or History of unexplained or recurrent spontaneous Oral contraceptives or hormone replacement Sepsis (< 1 month) Serious lung disease, including pneumonia (< 1 month) Abnormal pulmonary function Acute myocardial infarction Congestive heart failure (< 1 month) History of inflammatory bowel disease Medical patient at bed rest Age 61-74 Arthroscopic surgery Major open surgery (> 45 min) Laparoscopic surgery (> 45 min) Malignancy Confined to bed (> 72 hours) Immobilizing plaster cast Central venous access Age >= 75 History of VTE Family history of VTE Factor V Leiden Prothrombin [id number] Lupus anticoagulant Anticardiolipin antibodies Elevated serum homocysteine Heparin-induced thrombocytopenia Other congenital or acquired thrombophilia Stroke (< 1 month) Elective arthroplasty Hip, pelvis, or leg fracture Acute spinal cord injury (< 1 month) Prophylaxis Regimen: Total Risk Factor Score Risk Level Prophylaxis Regimen 0-1 Low Early ambulation 2 Moderate Order ONE of the following: *Sequential Compression Device (SCD) *Heparin 5000 units SQ BID 3-4 Higher Order ONE of the following medications: *Heparin 5000 units SQ TID *Enoxaparin/Lovenox 40 mg SQ daily (WT < 150 kg, CrCl > 30 mL/min) *Enoxaparin/Lovenox 30 mg SQ daily (WT < 150 kg, CrCl > 10-29 mL/min) *Enoxaparin/Lovenox 30 mg SQ BID (WT < 150 kg, CrCl > 30 mL/min) AND/OR *Sequential Compression Device (SCD) 5 or more Highest Order ONE of the following medications: *Heparin 5000 units SQ TID (Preferred with Epidurals) *Enoxaparin/Lovenox 40 mg SQ daily (WT < 150 kg, CrCl > 30 mL/min) *Enoxaparin/Lovenox 30 mg SQ daily (WT < 150 kg, CrCl > 10-29 mL/min) *Enoxaparin/Lovenox 30 mg SQ BID (WT < 150 kg, CrCl > 30 mL/min) AND *Sequential Compression Device (SCD) Assessment and Plan - Assessment (1) SIRS (systemic inflammatory response syndrome) Code(s): R65.10 - Systemic inflammatory response syndrome (SIRS) of non- infectious origin without acute organ dysfunction Status: Acute (2) PNA (pneumonia) Code(s): J18.9 - Pneumonia, unspecified organism Status: Acute (3) Lung cancer Code(s): C34.90 - Malignant neoplasm of unspecified part of unspecified bronchus or lung Status: Acute (4) Intractable pain Code(s): R52 - Pain, unspecified Status: Acute - Plan A/P: 1. SIRS: HR 91, WBC 23.9, Source-PNA. Follow up cultures, continue IV Abx, IVF for hydration. 2. PNA: CXR w/ RML/RLL infiltrate, small pleural effusion, continue w/ IV Abx , follow up cultures as above. DuoNeb prn, monitor O2. 3. Lung CA: w/ Brain Mets, s/p radiation, following w/ Dr. Herrera, states missed last chemo due to weakness, will consult Dr. Herrera for further eval/ recommendations. 4. Intractable Pain: resume home medications, analgesics/antiemetics as needed. 5. DVT Prophylaxis: Pharmacologic contraindication in light of [employer] lesion. 6. Social work for DC planning as needed. 7. Case discussed at length with the ER physician, lab/record/imaging reviewed by me
[2018-04-16] MEDS: Sod Chloride 0.9% Inj 1,000 ML IV.CONT SCH (21:19)
[2018-04-16] MEDS: Morphine Sulfate 100 MG SR Tablet PO SCH (23:00)
[2018-04-17 02:48] LABS: Bilirubin,Urine Negative (Negative); Clarity,Urine Hazy (Clear); Color,Urine Yellow (Yellw/Straw); Glucose,Urine (UA) Negative (Negative); Leukocyte Esterase,Urine Negative (Negative); Mucus,Urine Few /lpf (Occasional); Nitrite,Urine Negative (Negative); Specific Gravity,Urine 1.015 (1.002-1.035)
[2018-04-17] MEDS: Sod Chloride 0.9% Inj 1,000 ML IV.CONT SCH (06:21)
[2018-04-17] MEDS: Morphine Sulfate 100 MG SR Tablet PO SCH ×3 (06:46→22:14)
[2018-04-17 07:26] LABS: Baso # (Auto) 0.1 th/mm3 (0.0-0.2); Baso % (Auto) 0.9 % (0.0-2.0); Eos # (Auto) 0.3 th/mm3 (0.0-0.4); Eos % (Auto) 1.7 % (0.0-4.0); Hematocrit 30.8 % (39.0-51.0); Hemoglobin 9.9 gm/dL (13.0-17.0); Lymph # (Auto) 2.4 th/mm3 (1.0-4.8); Lymph % (Auto) 16.1 % (9.0-44.0); Mean Corpuscular HGB Conc 32.3 % (32.0-36.0); Mean Corpuscular Hemoglobin 26.7 pg (27.0-34.0); Mean Corpuscular Volume 82.8 fL (80.0-100.0); Mean Platelet Volume 7.6 fL (7.0-11.0); Mono # (Auto) 1.9 th/mm3 (0.0-0.9); Mono % (Auto) 12.8 % (0.0-8.0); Neut # (Auto) 10.4 th/mm3 (1.8-7.7); Neut % (Auto) 68.5 % (16.0-70.0); Platelet Count 361 th/mm3 (150-450); Red Blood Count 3.72 mil/mm3 (4.50-5.90); Red Cell Distribution Width 21.1 % (11.6-17.2); White Blood Count 15.1 th/mm3 (4.0-11.0)
[2018-04-17 07:48] LABS: Albumin 1.9 g/dL (3.4-5.0); Anion Gap 8 meq/L (5-15); Aspartate Aminotransferase 36 U/L (15-37); Blood Urea Nitrogen 17 mg/dL (7-18); Calcium 7.8 mg/dL (8.5-10.1); Chloride 106 meq/L (98-107); Glomerular Filtration Rate Greater Than 89 mL/min (>89); Glucose,Random 77 mg/dL (74-106); Potassium 3.8 meq/L (3.5-5.1); Sodium 140 meq/L (136-145)
--- NOTE | 2018-04-17 07:48 | P.PNIM ---
Subjective Interval history: Patient is doing better overall today. He still has lower left chest pain as well as lower right chest pain, but the abdominal pain has dissipated. He continues to have trouble with swallowing both fluids and solids. He denies nausea/vomiting. He is able to breathe on room air. He does have cough which worsens his chest pain. Physical Exam Vital signs: Vital Signs 04/16/18 18:15 04/16/18 18:18 04/16/18 20:31 Temperature 98.3 F Pulse Rate 91 H 88 Respiratory Rate 16 20 20 Blood Pressure 150/85 H 146/72 H Pulse Oximetry 100 98 04/16/18 21:09 04/16/18 21:12 04/16/18 22:18 Temperature Pulse Rate 124 H 88 Respiratory Rate 16 20 Blood Pressure 156/72 H Pulse Oximetry 97 98 04/16/18 23:51 04/17/18 00:00 04/17/18 00:38 Temperature 97.8 F Pulse Rate 87 103 H Respiratory Rate 17 17 20 Blood Pressure 115/70 170/88 H Pulse Oximetry 97 97 04/17/18 03:54 04/17/18 04:00 Temperature 97.7 F Pulse Rate 121 H 72 Respiratory Rate 18 Blood Pressure 103/79 Pulse Oximetry 99 Intake & Output 04/16/18 04/17/18 04/17/18 18:59 06:59 18:59 Intake Total 1242 / 1242 Balance 1242 / 1242 Weight 51.71 kg 53.9 kg Intake: IV 1242 / 1242 NS Inj 1,000 ML @ 100 mls/hr IV 892 / 892 .CONT .Q10H SUSIE Rx#:[id number] Azithromycin Inj 500 MG In NS 250 / 250 Inj 250 ML @ 250 mls/hr IV.SIG ONCE ONE Rx#:[id number] Maxipime Inj 2,000 MG In NS Inj 100 / 100 100 ML @ 200 mls/hr IV.SIG ONCE ONE Rx#:[id number] Other: Weight On Admission 53.9 kg Narrative: GENERAL: Thin, chronically ill-appearing middle-aged white male in no acute respiratory distress HEENT: PERRLA, EOMI. No scleral icterus or conjunctival pallor. No lid lag or facial droop CARDIOVASCULAR: Tachycardic rate and irregularly irregular rhythm. No obvious murmurs to auscultation. Right [id number]-[id number] RESPIRATORY: No obvious rhonchi or wheezing. Coarse breath sounds bilaterally with crackles in the mid and lower lung bush bilaterally GASTROINTESTINAL: Abdomen soft, non-tender, nondistended. BS normal. MUSCULOSKELETAL: Extremities without clubbing, cyanosis, or edema. No obvious deformities. NEUROLOGICAL: Awake, alert and oriented x4. No focal neurologic deficits. Moving both upper and lower extremities spontaneously PSYCHIATRIC: Appropriate mood and affect. Insight and judgment normal Results - Labs CBC & Chem 7: 04/17/18 06:30 04/17/18 06:30 Laboratory Results - last 24 hr 04/16/18 04/16/18 04/16/18 19:38 19:38 19:38 WBC 23.9 H RBC 4.08 L Hgb 10.9 L Hct 33.4 L MCV 81.9 MCH 26.6 L MCHC 32.5 RDW 21.1 H Plt Count 419 MPV 7.2 Neut % (Auto) 88.1 H Lymph % (Auto) 4.2 L [place] % (Auto) 7.1 Eos % (Auto) 0.3 Baso % (Auto) 0.3 Neut # (Auto) 21.1 H Lymph # (Auto) 1.0 Haskell # (Auto) 1.7 H Eos # (Auto) 0.1 Baso # (Auto) 0.1 WBC Differential . Differential Comment Auto diff final PT 11.7 H INR 1.2 APTT 21.6 L Sodium 138 Potassium 3.7 Chloride 103 Carbon Dioxide 26.4 Anion Gap 9 BUN 21 H Creatinine 0.90 Estimated GFR 85 L Random Glucose 90 Calcium 8.1 L Magnesium 1.6 Total Bilirubin 0.2 AST 35 ALT 25 Alkaline Phosphatase 103 Troponin I Less than 0.02 L B-Natriuretic Peptide Total Protein 7.0 Albumin 2.2 L Urine Color Urine Clarity Urine pH Ur Specific [place] Urine Protein Urine Glucose (UA) Urine Ketones Urine Occult Blood Urine Nitrate Urine Bilirubin Urine Urobilinogen Ur Leukocyte Esterase Urine RBC Urine WBC Urine Mucus Micro UA Comment Ur Microscopic Review Urine Culture Comments 04/16/18 04/17/18 04/17/18 19:38 02:20 06:30 WBC 15.1 H RBC 3.72 L Hgb 9.9 L Hct 30.8 L MCV 82.8 MCH 26.7 L MCHC 32.3 RDW 21.1 H Plt Count 361 MPV 7.6 Neut % (Auto) 68.5 Lymph % (Auto) 16.1 [place] % (Auto) 12.8 H Eos % (Auto) 1.7 Baso % (Auto) 0.9 Neut # (Auto) 10.4 H Lymph # (Auto) 2.4 [place] # (Auto) 1.9 H Eos # (Auto) 0.3 Baso # (Auto) 0.1 WBC Differential . Differential Comment Auto diff final PT INR APTT Sodium Potassium Chloride Carbon Dioxide Anion Gap BUN Creatinine Estimated GFR Random Glucose Calcium Magnesium Total Bilirubin AST ALT Alkaline Phosphatase Troponin I B-Natriuretic Peptide 549 H Total Protein Albumin Urine Color Yellow Urine Clarity Hazy H Urine pH 5.0 Ur Specific [place] 1.015 Urine Protein Negative Urine Glucose (UA) Negative Urine Ketones Negative Urine Occult Blood Negative Urine Nitrate Negative Urine Bilirubin Negative Urine Urobilinogen Less than 2 Ur Leukocyte Esterase Negative Urine RBC 1 Urine WBC 1 Urine Mucus Few H Micro UA Comment Culture not ind Ur Microscopic Review Not Reportable Urine Culture Comments Culture not ind - Imaging Impressions Chest X-Ray 04/16/18 19:13 CONCLUSION: Combined collapse right middle lobe and right lower lobe with a tiny right pleural effusion. Assessment and Plan - Assessment (1) Atrial fibrillation with RVR Code(s): I48.91 - Unspecified atrial fibrillation Status: Acute (2) SIRS (systemic inflammatory response syndrome) Code(s): R65.10 - Systemic inflammatory response syndrome (SIRS) of non- infectious origin without acute organ dysfunction Status: Acute (3) Pneumonia Code(s): J18.9 - Pneumonia, unspecified organism Status: Acute (4) COPD exacerbation Code(s): J44.1 - Chronic obstructive pulmonary disease with (acute) exacerbation Status: Acute (5) Intractable pain Code(s): R52 - Pain, unspecified Status: Acute (6) Dysphagia Code(s): R13.10 - Dysphagia, unspecified Status: Acute - Plan This is a 62-year-old male with PMH of HTN, COPD, Chronic Pain and Lung CA w/ Brain Metastasis who presented to the ER w/ c/o SOB, generalized weakness and intractable pain. Follows w/ Dr. Herrera w/ Oncology, states he underwent brain radiation and was scheduled to have chemo last week however he's been too weak to get treatment. Notes progressive SOB and worsening generalized pain/ weakness. Denies fever or chills. Notes intermittent cough w/ green-colored sputum. On arrival, BP 146/72, HR 88, O2 sat 98% on RA, Afebrile. WBC 23.9. INR 1.2. Chemistry essentially unremarkable. BNP 549. Troponin negative. CXR with collapse of right middle lobe and right lower lobe, tiny right pleural effusion. S/p Cefepime/Zithro in ER. SIRS: HR 91, WBC 23.9 on admission, No definite infiltrate seen on CXR but clinically significant -WBC improved to 15.1 today -Continue IV Cefepime and Azithromycin -Repeat chest x-ray, PA and lateral today -Follow up cultures Pneumonia/COPD Exacerbation -Clinical symptoms of cough, productive sputum, SOB -History of smoking -IV abx as above -Continue scheduled Duonebs while awake -Tessalon Perles for cough -Check sputum gram stain and culture -Check pneumococcal and Legionella urinary antigens AFIB -Tachycardic on admission -Irregularly irregular HR on EKG today -Will administer one dose of Cardizem PO -Transfer to [facility] if possible Lung CA: w/ Brain Mets, s/p radiation, following w/ Dr. Herrera, states missed last chemo due to weakness and would like to have chemo as soon as possible -Dr. 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
[2018-04-17 07:50] LABS: Alanine Aminotransferase 22 U/L (12-78)
[2018-04-17 07:52] LABS: Alkaline Phosphatase 90 U/L (45-117); Total Protein 6.4 g/dL (6.4-8.2)
[2018-04-17] MEDS: Senna/Docusate Sodium 8.6/50 MG Tablet PO SCH ×2 (08:28→21:09)
[2018-04-17] MEDS: Amiodarone 200 MG Tablet PO SCH (08:28)
[2018-04-17] MEDS ORDERED: Benzonatate 100 MG Capsule PO PRN (10:08)
[2018-04-17] MEDS ORDERED: dilTIAZem 30 MG Tablet PO ONE (15:15)
--- NOTE | 2018-04-17 15:32 | XR ---
EXAM DATE: 04/17/2018 3:25 PM EDT AGE/SEX: 62 years / Male INDICATIONS: . Shortness of breath and chest pain . CLINICAL DATA: This is the patient's subsequent encounter. Patient reports that signs and symptoms h ave been present for 3 days and indicates a pain score of 5/10. MEDICAL/SURGICAL HISTORY: Carcinoma, lung. . [place]. COMPARISON: [facility], CHEST 1V SINGLE AP, 04/16/2018. . FINDINGS: Right IJ [id number]-i-Lrls is present with tip overlapping the expected region of the SVC. Again noted i s a combined collapse right middle lobe and lower lobe not significantly changed and a small pleural effusion is also negative. The left lung is clear. CONCLUSION: No change in combined right middle lobe and lower lobe collapse with a tiny right pleural effusion . Electronically signed by: Sumanth Matos MD 04/17/2018 3:30 PM EDT
--- NOTE | 2018-04-17 20:02 | MB ---
cc: Mary Murphy MD,Dipti FELIZ DATE: 04/17/2018 REFERRING PHYSICIAN: Dipti Mane. CHIEF COMPLAINT: Dr. Mane requests a consultation for Mr. Mendez regarding a diagnosis of metastatic small-cell lung cancer. HISTORY OF PRESENT ILLNESS: Mr. Mendez is a 62-year-old male well known patient to Dr. Sb Herrera. He initially presented in mid 03/02 with chest pain and shortness of breath. He was found to have obstructing mass in the right lower lobe, causing collapse. He was diagnosed with a small-cell lung cancer. He received his first cycle of carboplatin and etoposide on 03/11/2018 to 03/13/2018 in the hospital. He was treated urgently. He felt better after the initial treatment. He was referred to radiation oncology. Radiation oncology was consulted. He was seen initially by Dr. Lund. He was found to have a solitary lesion in the PHOTOGRAPHS CURATOR. The plan was to treat him with stereotactic radiation. 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 He was scheduled to have a second cycle of chemotherapy at [facility] on 04/11/2018. Apparently something happened that he did not receive that treatment. He called the on-call physician last night complaining of running out of pain medication. He was feeling unwell. He was advised to go into the emergency room for intractable pain. He explained to Dr. Melissa Cross that he was instructed to be admitted for drainage of the lung and to start chemotherapy. Thus, he was admitted to the hospital. A chest x-ray on presentation to the emergency room shows combined collapse of the right middle lobe and right lower lobe, with a tiny pleural effusion. His CBC is consistent with mild leukocytosis with a white count of 23.9, hemoglobin 10.9, platelet count of 419,000. Chemistry shows a mild elevation of BUN. He explains that [place], but has been staying with his brother. He has not felt well. At the time of the consultation, his pain is better controlled. He is receiving hydromorphone IV p.r.n. for pain 6/10, morphine sulfate/Oramorph SR every 8 hours, Roxicodone for milder breakthrough pain 3-5. He denies any fevers, chills, or night sweats. He is feeling that since his last chemotherapy and the delay, he feels there is a recurrence in his lung. He is eager to get started on his chemotherapy. He denies any headaches. No vision changes. Denies any urinary complaints. PAST MEDICAL HISTORY: Chronic back pain, hepatitis C, metastatic non-small cell lung cancer, right lung collapse, PHOTOGRAPHS CURATOR metastatic disease. PAST SURGICAL HISTORY: Right leg surgery, bronchoscopy, bilateral hernia repairs. FAMILY HISTORY: Grandfather had cancer. No other family members with cancer. SOCIAL HISTORY: He smoked on and off for 25 years. He denies any alcohol or illicit drug use. 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 ALLERGIES: NO KNOWN DRUG ALLERGIES. CURRENT MEDICATIONS: Include: 1. Acetaminophen. 2. Milk of magnesia. 3. Albuterol. 4. Amiodarone. 5. Aspirin. 6. Azithromycin. 7. Clonidine. 8. Hydromorphone. 9. Lactulose. 10. Oramorph SR. 11. Zofran. 12. Oxycodone. 13. Heather-Colace. 14. Senokot. PHYSICAL EXAMINATION: VITAL SIGNS: Temperature 97.7, heart rate 102, respiratory rate 16, blood pressure 111/60, saturation 98%. GENERAL: Mr. Mendez is a slender, well-developed man, who looks his stated age. He has mild bitemporal wasting. HEENT: Pupils are round, reactive to light and accommodation. Oropharynx is clear. NECK: Supple. LUNGS: Diminished breath sounds in the right lung field. CARDIOVASCULAR: Reveals tachycardia. ABDOMEN: Benign. EXTREMITIES: Lower extremities with no edema. LABORATORY DATA: Significant for mild anemia and leukocytosis. PT and PTT are prolonged. Chemistry shows normal liver function despite history of hepatitis B and brain natriuretic peptide is slightly elevated. His albumin is decreased to 1.9. ASSESSMENT AND PLAN: Mr. Mendez is a 62-year-old man with metastatic small-cell lung cancer. He received his first cycle of palliative chemotherapy and missed the second cycle. He is quite anxious about missing his chemotherapy and ran out of pain medication over the weekend. He has intractable pain and running out of pain medications initially was the reason he was sent to the ER in the first place. He was not advised to come into the emergency room to receive his chemotherapy, as he told Dr. Cross. I had a lengthy discussion with Mr. Mendez the rationale for administration of the chemotherapy on an outpatient basis. This is a test of his performance status. He is of good performance status. He would tolerate chemotherapy on outpatient basis. Patients with good performance status are the ones who really derive a benefit from palliative chemotherapy. It is more difficult to tell when someone is in bed in the hospital about their performance status. Arrangements were made to administer his chemotherapy in outpatient. Defer ultimately to Dr. Herrera, who will take over his care tomorrow. Would presume he could be discharged to continue his treatment unless there is something acute. We would be able to provide him with enough pain medication until he gets to clinic to see Dr. Herrera for treatment. He appears to be stable. We will monitor his tachycardia. At one point, he was noted to have atrial fibrillation. I will see if his rate is better controlled. At one point in his history, he had atrial fibrillation with rapid ventricular response. His questions were answered to his satisfaction. His pain is better controlled. His initial goal for admission is achieved. MD ERIN Mullins/paulo/shala , 04:09 PM , 04:25 PM
[2018-04-17] MEDS: Azithromycin Inj 500 MG in Sodium Chlor 0.9% Inj 250 ML IV.SIG SCH (21:01)
[2018-04-18] MEDS: Morphine Sulfate 100 MG SR Tablet PO SCH ×3 (06:14→23:13)
[2018-04-18 06:33] LABS: Baso # (Auto) 0.1 th/mm3 (0.0-0.2); Baso % (Auto) 0.6 % (0.0-2.0); Eos # (Auto) 0.4 th/mm3 (0.0-0.4); Eos % (Auto) 3.6 % (0.0-4.0); Hemoglobin 9.6 gm/dL (13.0-17.0); Lymph # (Auto) 2.1 th/mm3 (1.0-4.8); Lymph % (Auto) 17.4 % (9.0-44.0); Mean Corpuscular Hemoglobin 26.5 pg (27.0-34.0); Mean Corpuscular Volume 82.8 fL (80.0-100.0); Mean Platelet Volume 7.7 fL (7.0-11.0); Mono # (Auto) 1.7 th/mm3 (0.0-0.9); Neut # (Auto) 7.8 th/mm3 (1.8-7.7); Neut % (Auto) 64.4 % (16.0-70.0); Platelet Count 358 th/mm3 (150-450); Red Blood Count 3.62 mil/mm3 (4.50-5.90); Red Cell Distribution Width 21.1 % (11.6-17.2); White Blood Count 12.1 th/mm3 (4.0-11.0)
[2018-04-18 06:49] LABS: Calcium 8.2 mg/dL (8.5-10.1); Carbon Dioxide 27.3 meq/L (21.0-32.0); Potassium 4.1 meq/L (3.5-5.1)
[2018-04-18] MEDS: Amiodarone 200 MG Tablet PO SCH (09:00)
[2018-04-18] MEDS: Senna/Docusate Sodium 8.6/50 MG Tablet PO SCH ×2 (09:00→20:37)
--- NOTE | 2018-04-18 09:59 | P.PNIM ---
Subjective Interval history: Patient says he is feeling a little better than yesterday. Denies any chest pain. Reports shortness of breath is improved. Physical Exam Vital signs: Vital Signs 04/17/18 12:00 04/17/18 14:24 04/17/18 16:00 Temperature 97.7 F 97.6 F Pulse Rate 106 H 103 H 112 H Respiratory Rate 16 22 16 Blood Pressure 111/60 111/59 L Pulse Oximetry 98 95 04/17/18 16:50 04/17/18 17:07 04/17/18 18:39 Temperature 98.7 F Pulse Rate 82 96 H 93 H Respiratory Rate 18 Blood Pressure 93/61 L 90/55 L 104/59 L Pulse Oximetry 04/17/18 19:59 04/17/18 20:00 04/18/18 00:00 Temperature 97.9 F 97.6 F Pulse Rate 83 97 H 84 Respiratory Rate 16 20 20 Blood Pressure 96/55 L 101/62 Pulse Oximetry 97 92 L 94 L 04/18/18 04:00 04/18/18 07:37 Temperature 97.7 F Pulse Rate 100 H 95 H Respiratory Rate 20 12 Blood Pressure 114/74 Pulse Oximetry 98 97 Intake & Output 04/17/18 04/18/18 04/18/18 18:59 06:59 18:59 Intake Total 810 / 810 830 / 830 100 / 100 Output Total 800 / 800 Balance 10 / 10 830 / 830 100 / 100 Intake: IV 450 / 450 350 / 350 100 / 100 NS Inj 1,000 ML @ 100 mls/hr IV 350 / 350 .CONT .Q10H SUSIE Rx#:[id number] Azithromycin Inj 500 MG In NS 250 / 250 Inj 250 ML @ 250 mls/hr IV.SIG Q24H SUSIE Rx#:[id number] Maxipime Inj 1,000 MG In NS Inj 100 / 100 100 / 100 100 / 100 100 ML @ 200 mls/hr IV.SIG Q12H SUSIE Rx#:[id number] Oral 360 / 360 480 / 480 Output: Urine 800 / 800 Other: # Voids 4 Date of Last Bowel Movement 04/16/18 04/16/18 # Bowel Movements 1 Narrative: GENERAL: Sitting up in bed. Appears comfortable and alert and oriented 3. SKIN: Warm and dry. HEAD: Normocephalic. EYES: No scleral icterus. No injection or drainage. NECK: Supple, trachea midline. No JVD. CARDIOVASCULAR: Regular rate and rhythm without murmurs, gallops, or rubs. RESPIRATORY: Breath sounds . No accessory muscle use. Some crackles in right lung. No wheezing or rhonchi. Right chest [id number] without surrounding erythema. GASTROINTESTINAL: Abdomen soft, non-tender, nondistended. MUSCULOSKELETAL: No cyanosis, or edema. BACK: Nontender without obvious deformity. No CVA tenderness. Results - Labs CBC & Chem 7: 04/18/18 03:53 04/18/18 03:53 Laboratory Results - last 24 hr 04/18/18 04/18/18 04/18/18 03:53 03:53 03:53 WBC 12.1 H RBC 3.62 L Hgb 9.6 L Hct 30.0 L MCV 82.8 MCH 26.5 L MCHC 32.0 RDW 21.1 H Plt Count 358 MPV 7.7 Neut % (Auto) 64.4 Lymph % (Auto) 17.4 [place] % (Auto) 14.0 H Eos % (Auto) 3.6 Baso % (Auto) 0.6 Neut # (Auto) 7.8 H Lymph # (Auto) 2.1 [place] # (Auto) 1.7 H Eos # (Auto) 0.4 Baso # (Auto) 0.1 WBC Differential . Differential Comment Auto diff final Sodium 139 Potassium 4.1 Chloride 103 Carbon Dioxide 27.3 Anion Gap 9 BUN 20 H Creatinine 1.06 Estimated GFR 71 L Random Glucose 76 Calcium 8.2 L B-Natriuretic Peptide 183 H Microbiology 04/17/18 17:30 Urine - Clean Catch Urine Streptococcus pneumoniae Antigen ( M - Final POS S. pneumoniae antigen 04/17/18 17:30 Urine - Clean Catch Urine Legionella Antigen - Final Presumptive negative for Legionella pneumophila serogroup 1 antigen in urine, suggesting no recent or recurrent infection. Infection due to Legionella cannot be ruled out since other serogroups and species may cause disease, antigen may not be present in urine in early infection, and the level of antigen present in the urine may be below the detection limit of the test. 04/16/18 19:40 Blood - Peripheral Aerobic Blood Culture - Preliminary No growth in 1 day 04/16/18 19:40 Blood - Peripheral Anaerobic Blood Culture - Preliminary No growth in 1 day - Imaging Impressions Chest X-Ray 04/17/18 14:46 CONCLUSION: No change in combined right middle lobe and lower lobe collapse with a tiny right pleural effusion. Assessment and Plan - Assessment (1) SIRS (systemic inflammatory response syndrome) Code(s): R65.10 - Systemic inflammatory response syndrome (SIRS) of non- infectious origin without acute organ dysfunction Status: Acute (2) PNA (pneumonia) Code(s): J18.9 - Pneumonia, unspecified organism Status: Acute (3) Lung cancer Code(s): C34.90 - Malignant neoplasm of unspecified part of unspecified bronchus or lung Status: Acute (4) Intractable pain Code(s): R52 - Pain, unspecified Status: Acute - Plan This is a 62-year-old male with PMH of HTN, COPD, Chronic Pain and Lung CA w/ Brain Metastasis who presented to the ER w/ c/o SOB, generalized weakness and intractable pain. Follows w/ Dr. Herrera w/ Oncology, states he underwent brain radiation and was scheduled to have chemo last week however he's been too weak to get treatment. Notes progressive SOB and worsening generalized pain/ weakness. Denies fever or chills. Notes intermittent cough w/ green-colored sputum. On arrival, BP 146/72, HR 88, O2 sat 98% on RA, Afebrile. WBC 23.9. INR 1.2. Chemistry essentially unremarkable. BNP 549. Troponin negative. CXR with collapse of right middle lobe and right lower lobe, tiny right pleural effusion. S/p Cefepime/Zithro in ER. //SIRS: HR 91, WBC 23.9 on admission, No definite infiltrate seen on CXR but clinically significant -WBC improved to 15.1 today -Continue IV Cefepime and Azithromycin -Repeat chest x-ray, PA and lateral today -Follow up cultures = White blood cell count improving. uRine strep pneumo antigen positive. Continue antibiotics. //Pneumonia/COPD Exacerbation -Clinical symptoms of cough, productive sputum, SOB -History of smoking -IV abx as above -Continue scheduled Duonebs while awake -Tessalon Perles for cough -Check sputum gram stain and culture -Check pneumococcal and Legionella urinary antigens = Strep pneumo positive. Continue on antibiotics. //AFIB -Tachycardic on admission -Irregularly irregular HR on EKG today -Will administer one dose of Cardizem PO -Transfer to [facility] if possible = A. fib likely secondary to missing patient's metoprolol. Will restart metoprolol. //Lung CA: w/ Brain Mets, s/p radiation, following w/ Dr. Herrera, states missed last chemo due to weakness and would like to have chemo as soon as possible -Dr. Herrera consulted for further eval/recommendations. =Tentative plans for chemotherapy to be started. Appreciate oncology assistance. 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
--- NOTE | 2018-04-18 11:03 | P.PNONC ---
Subjective Interval history: Afebrile Pt reports he has been having trouble swallowing larger pills Patient seen and examined along with KSENIA Casas. She reports they will likely take him for esophagus stretching tomorrow. Objective Vital Signs/Intake & Output: Vital Signs 04/17/18 12:00 04/17/18 14:24 04/17/18 16:00 Temperature 97.7 F 97.6 F Pulse Rate 106 H 103 H 112 H Respiratory Rate 16 22 16 Blood Pressure 111/60 111/59 L Pulse Oximetry 98 95 04/17/18 16:50 04/17/18 17:07 04/17/18 18:39 Temperature 98.7 F Pulse Rate 82 96 H 93 H Respiratory Rate 18 Blood Pressure 93/61 L 90/55 L 104/59 L Pulse Oximetry 04/17/18 19:59 04/17/18 20:00 04/18/18 00:00 Temperature 97.9 F 97.6 F Pulse Rate 83 97 H 84 Respiratory Rate 16 20 20 Blood Pressure 96/55 L 101/62 Pulse Oximetry 97 92 L 94 L 04/18/18 04:00 04/18/18 07:37 Temperature 97.7 F Pulse Rate 100 H 95 H Respiratory Rate 20 12 Blood Pressure 114/74 Pulse Oximetry 98 97 Intake & Output 04/17/18 04/18/18 04/18/18 18:59 06:59 18:59 Intake Total 810 / 810 830 / 830 100 / 100 Output Total 800 / 800 Balance 10 10 830 / 830 100 / 100 Intake: IV 450 / 450 350 / 350 100 / 100 NS Inj 1,000 ML @ 100 mls/hr IV 350 / 350 .CONT .Q10H [facility] Rx#:[id number] Azithromycin Inj 500 MG In NS 250 / 250 Inj 250 ML @ 250 mls/hr IV.SIG Q24H [facility] Rx#:[id number] Maxipime Inj 1,000 MG In NS Inj 100 / 100 100 / 100 100 / 100 100 ML @ 200 mls/hr IV.SIG Q12H [facility] Rx#:[id number] Oral 360 / 360 480 / 480 Output: Urine 800 / 800 Other: # Voids 4 Date of Last Bowel Movement 04/16/18 04/16/18 # Bowel Movements 1 Result Diagrams: 04/19/18 04:20 04/19/18 04:20 Laboratory Results: Laboratory Results - last 24 hr 04/18/18 04/18/18 04/18/18 03:53 03:53 03:53 WBC 12.1 H RBC 3.62 L Hgb 9.6 L Hct 30.0 L MCV 82.8 MCH 26.5 L MCHC 32.0 RDW 21.1 H Plt Count 358 MPV 7.7 Neut % (Auto) 64.4 Lymph % (Auto) 17.4 [place] % (Auto) 14.0 H Eos % (Auto) 3.6 Baso % (Auto) 0.6 Neut # (Auto) 7.8 H Lymph # (Auto) 2.1 [place] # (Auto) 1.7 H Eos # (Auto) 0.4 Baso # (Auto) 0.1 WBC Differential . Differential Comment Auto diff final Sodium 139 Potassium 4.1 Chloride 103 Carbon Dioxide 27.3 Anion Gap 9 BUN 20 H Creatinine 1.06 Estimated GFR 71 L Random Glucose 76 Calcium 8.2 L B-Natriuretic Peptide 183 H Culture Results: Microbiology 04/17/18 17:30 Streptococcus pneumoniae Antigen (M - Final Urine - Clean Catch Urine POS S. pneumoniae antigen 04/17/18 17:30 Legionella Antigen - Final Urine - Clean Catch Urine Presumptive negative for Legionella pneumophila serogroup 1 antigen in urine, suggesting no recent or recurrent infection. Infection due to Legionella cannot be ruled out since other serogroups and species may cause disease, antigen may not be present in urine in early infection, and the level of antigen present in the urine may be below the detection limit of the test. 04/16/18 19:40 Aerobic Blood Culture - Preliminary Blood - Peripheral No growth in 1 day Anaerobic Blood Culture - Preliminary No growth in 1 day Imaging Studies: Impressions Chest X-Ray 04/17/18 14:46 CONCLUSION: No change in combined right middle lobe and lower lobe collapse with a tiny right pleural effusion. Medications: Active Medications Generic Name Dose Route Start Last Admin Trade Name Freq PRN Reason Stop Dose Admin Albuterol 1 ampul 04/17/18 14:00 04/18/18 07:35 Duoneb Neb ([facility]) NEB 1 ampul Q6HR WHILE AWAKE NEB [facility] Administration Amiodarone HCl 400 mg 04/17/18 09:00 04/18/18 09:00 Cordarone PO 400 mg DAILY [facility] Administration Aspirin 81 mg 04/17/18 09:00 09/03/18 09:00 Ecotrin PO 81 mg DAILY [facility] Administration Clonidine HCl 0.1 mg 04/17/18 09:00 04/18/18 08:53 Catapres PO Not Given Q12HR [facility] Cefepime HCl 1,000 mg/ Sodium 100 mls @ 200 mls/hr 04/17/18 08:00 04/18/18 09 :09 Chloride IV.SIG Infused Q12H [facility] Infusion Azithromycin 500 mg/ Sodium 250 mls @ 250 mls/hr 04/17/18 21:00 04/17/18 22: 43 Chloride IV.SIG Infused Q24H [facility] In[facility] Morphine Sulfate 100 mg 04/16/18 22:00 04/18/18 06:14 Oramorph Sr PO 100 mg Q8HR [facility] Administration Oxycodone HCl 30 mg 04/16/18 21:30 04/18/18 03:53 Roxicodone PO 30 mg Q4H PRN Administration PAIN SCALE 3 TO 5 Senna/Docusate Sodium 1 tab 04/17/18 09:00 04/18/18 09:00 Heather-Colace PO 1 tab BID [facility] Administration Objective Remarks: GENERAL: Chronically ill-appearing elderly gentleman sitting up at bedside eating breakfast in no obvious distress SKIN: Warm and dry. HEAD: Normocephalic. EYES: No scleral icterus. No injection or drainage. NECK: Supple, trachea midline. No JVD or lymphadenopathy. CARDIOVASCULAR: Regular rate and rhythm without murmurs. RESPIRATORY: Diminished posteriorly. Breathing unlabored at rest. GASTROINTESTINAL: Abdomen soft, non-tender, nondistended. EXTREMITIES: 1+ edema to bilateral lower extremities MUSCULOSKELETAL: Adequate muscle tone. NEUROLOGICAL: No obvious focal deficit. Awake, alert, and oriented x3. Assessment/Plan - Plan 62-year-old male with history of metastatic small cell lung cancer admitted with chest pain and shortness of breath. He received his first cycle of carbo and [employer]INE[employer]ING [employer]-16 in late February. He has also seen Dr. Lund for history of a solitary lesion in the [employer]. Plan for stereotactic radiation. Unfortunately he had difficulty with getting his second cycle outpatient and returned to the emergency room after he also ran out of his pain medications. 1. Transfer patient to oncology floor as we will plan for second cycle of chemotherapy inpatient tomorrow with carbo/ TRAFFIC ENGINEERING DIRECTOR-16. 2. Discussed with KSENIA Casas that if we can facilitate patient first thing in the morning for esophageal stretching then that is fine otherwise this can wait until after he completes second cycle chemotherapy. 3. Continue supportive care - Attending Statement The exam, history, and the medical decision-making described in the above note were completed with the assistance of the mid-level provider. I reviewed and agree with the findings presented. I attest that I had a [id number] encounter with the patient on the same day, and personally performed and documented my assessment and findings in the medical record. Late entry. Patient was complaining of bilateral chest wall pain with deep breathing. He think he is more short of breath. Patient has problem going to the clinic to get his chemotherapy. He is overdue for second cycle of chemotherapy. Checks x -ray still showed collapse of the right lung. We will arrange for him to start cycle 2 of chemotherapy April 19.
[2018-04-18] MEDS: Metoprolol Tartrate 50 MG Tablet PO SCH ×2 (11:08→20:37)
--- NOTE | 2018-04-18 11:16 | P.CONGI ---
History of Present Illness Consult date: 04/18/18 Consult reason: Dysphasia Chief complaint: pneumonia, Sirs, dehydration History of Present Illness: This is a thin 62-year-old male who entered the hospital on 04/16/2018 with shortness of breath general weakness and irretractable pain. Patient has a significant history of lung cancer and is post chemotherapy and radiation and is currently being evaluated to restart chemotherapy in the a.m. Patient states onset of symptoms of dysphasia approximately 3 months ago, worse with solids and liquids and is unable to swallow most medications. Patient is currently eating regular food but is cutting bites and very small pieces and eating very slowly. Patient is awake giving fairly good information for symptoms but is a poor historian. Patient denies any blood thinners and states colonoscopy approximately 6 months ago but unknown who performed or findings. Current labs show WBC count 12.1, hemoglobin 9.6, PT/INR 1.2, bilirubin and LFTs normal. Patient states 60 pound weight loss since his initial lung cancer diagnosis. Currently patient is being managed with oxygen per nasal cannula and no shortness of breath at rest noted. Patient denies any nausea and vomiting unless he is coughing up food that gets stuck in his esophagus and no dyspepsia. Patient also denies any obvious abdominal pain no diarrhea no constipation and no obvious bleeding. Gastroenterology has been consulted to assist with patient's dysphasia and his plan of care. Patient has no family history of colon cancer. <Yessenia Fox - Last Filed: 04/18/18 11:22> Review of Systems All other systems reviewed negative except as stated in HPI <Yessenia Fox - Last Filed: 04/18/18 11:22> PENDING SALE TO [facility] - History History Provided By: Patient - Medical History Medical History: Medical History (Last Updated 04/16/18 @ 19:06 by Adela Armenta) Edema (Chronic) Back pain (Chronic) Lung cancer Port-A-Cath in place COPD (chronic obstructive pulmonary disease) History of osteomyelitis Neck pain - Surgical History Surgical History: Surgical History (Last Reviewed 03/14/18 @ 08:21 by Jackelin Hampton) H/O hernia repair (Resolved) - Family History Family History: Family History (Last Reviewed 03/12/18 @ 12:10 by Sridhar Blunt) Grandparent Cancer Father H/O ETOH abuse Mother Alzheimers disease - Tobacco History Second Hand Smoke Exposure: No Tobacco Use In Past 30 Days: No Smoking Status: Former smoker Tobacco Type: Cigarettes - Alcohol History How Often Do You Have a Drink Containing Alcohol: Never - Substance Use History Substance History: No History of Abuse - Travel History Recent Travel in the [place] Within the Last 8 Weeks: No Recent Travel Out of the Country Within the Last 8 Weeks: No - Immunization History Tetanus Immunization: <5 Years Hx Influenza Vaccine This Season: No <Yessenia Fox - Last Filed: 04/18/18 11:22> - Medical History Medical History: Medical History (Last Updated 04/16/18 @ 19:06 by Adela Armenta) Edema (Chronic) Back pain (Chronic) Lung cancer Port-A-Cath in place COPD (chronic obstructive pulmonary disease) History of osteomyelitis Neck pain - Surgical History Surgical History: Surgical History (Last Reviewed 03/14/18 @ 08:21 by Jackelin Hampton) H/O hernia repair (Resolved) - Family History Family History: Family History (Last Reviewed 03/12/18 @ 12:10 by Sridhar Blunt) Grandparent Cancer Father H/O ETOH abuse Mother Alzheimers disease <Ashok Mike - Last Filed: 04/18/18 22:45> Medications and Allergies Active Medications: Active Medications Acetaminophen (Tylenol) 650 mg PO Q4H PRN PRN Reason: Temp > 100.4 Al Hydroxide/Mg Hydroxide (Milk Of Alfie Khan) 30 ml PO Q12H PRN PRN Reason: Mild Constipation Albuterol (Duoneb Neb (Former[facility])) 1 ampul NEB Q6HR WHILE AWAKE NEB [facility] Last Admin: 04/18/18 07:35 Dose: 1 ampul Amiodarone HCl (Cordarone) 400 mg PO DAILY [facility] Last Admin: 04/18/18 09:00 Dose: 400 mg Aspirin (Ecotrin) 81 mg PO DAILY [facility] Last Admin: 04/18/18 09:00 Dose: 81 mg Benzonatate (Tessalon Perles) 200 mg PO Q8H PRN PRN Reason: COUGH Bisacodyl (Dulcolax Supp) 10 mg RECTAL DAILY PRN PRN Reason: SEVERE CONSITIPATION Clonidine HCl (Catapres) 0.1 mg PO Q12HR [facility] Last Admin: 04/18/18 08:53 Dose: Not Given Hydromorphone HCl (Dilaudid Pf Inj) 1 mg IV.PUSH Q4H PRN PRN Reason: PAIN 6-10 Cefepime HCl 1,000 mg/ Sodium (Chloride) 100 mls @ 200 mls/hr IV.SIG Q12H [facility] Last Infusion: 04/18/18 09:09 Dose: Infused Azithromycin 500 mg/ Sodium (Chloride) 250 mls @ 250 mls/hr IV.SIG Q24H [facility] Last Infusion: 04/17/18 22:43 Dose: Infused Lactulose (Lactulose Liq) 30 ml PO DAILY PRN PRN Reason: SEVERE CONSITIPATION Metoprolol Tartrate (Lopressor) 50 mg PO BID [facility] Morphine Sulfate (Oramorph Sr) 100 mg PO Q8HR [facility] Last Admin: 04/18/18 06:14 Dose: 100 mg Ondansetron HCl (Zofran Inj) 4 mg IV.PUSH Q6H PRN PRN Reason: NAUSEA OR VOMITING Oxycodone HCl (Roxicodone) 30 mg PO Q4H PRN PRN Reason: PAIN SCALE 3 TO 5 Last Admin: 04/18/18 03:53 Dose: 30 mg Senna/Docusate Sodium (Heather-Colace) 1 tab PO BID [facility] Last Admin: 04/18/18 09:00 Dose: 1 tab Sennosides (Senokot) 17.2 mg PO Q12H PRN PRN Reason: Moderate Constipation <Yessenia Fox M - Last Filed: 04/18/18 11:22> Active Medications: Active Medications Acetaminophen (Tylenol) 650 mg PO Q4H PRN PRN Reason: Temp > 100.4 Al Hydroxide/Mg Hydroxide (Milk Of Magnesia Liq) 30 ml PO Q12H PRN PRN Reason: Mild Constipation Albuterol (Duoneb Neb (Former[facility])) 1 ampul NEB Q6HR WHILE AWAKE NEB [facility] Last Admin: 04/18/18 19:44 Dose: 1 ampul Amiodarone HCl (Cordarone) 400 mg PO DAILY [facility] Last Admin: 04/18/18 09:00 Dose: 400 mg Aspirin (Ecotrin) 81 mg PO DAILY [facility] Last Admin: 04/18/18 09:00 Dose: 81 mg Benzonatate (Tessalon Perles) 200 mg PO Q8H PRN PRN Reason: COUGH Bisacodyl (Dulcolax Supp) 10 mg RECTAL DAILY PRN PRN Reason: SEVERE CONSITIPATION Clonidine HCl (Catapres) 0.1 mg PO Q12HR [facility] Last Admin: 04/18/18 20:38 Dose: Not Given Heparin Sodium (Porcine) (Heparin Central Flush) 500 unit IV.FLUSH UNSCH PRN PRN Reason: Flush infusaport Heparin Sodium (Porcine) (Heparin Central Flush) 250 unit IV.FLUSH UNSCH PRN PRN Reason: Flush Infusapot Last Admin: 04/18/18 11:45 Dose: 250 unit Hydromorphone HCl (Dilaudid Pf Inj) 1 mg IV.PUSH Q4H PRN PRN Reason: PAIN 6-10 Cefepime HCl 1,000 mg/ Sodium (Chloride) 100 mls @ 200 mls/hr IV.SIG Q12H [facility] Last Infusion: 04/18/18 21:19 Dose: Infused Azithromycin 500 mg/ Sodium (Chloride) 250 mls @ 250 mls/hr IV.SIG Q24H [facility] Last Admin: 04/18/18 21:39 Dose: 250 mls/hr Lactulose (Lactulose Liq) 30 ml PO DAILY PRN PRN Reason: SEVERE CONSITIPATION Metoprolol Tartrate (Lopressor) 50 mg PO BID [facility] Last Admin: 04/18/18 20:37 Dose: 50 mg Morphine Sulfate (Oramorph Sr) 100 mg PO Q8HR [facility] Last Admin: 04/18/18 14:16 Dose: 100 mg Ondansetron HCl (Zofran Inj) 4 mg IV.PUSH Q6H PRN PRN Reason: NAUSEA OR VOMITING Oxycodone HCl (Roxicodone) 30 mg PO Q4H PRN PRN Reason: PAIN SCALE 3 TO 5 Last Admin: 04/18/18 21:38 Dose: 30 mg Senna/Docusate Sodium (Heather-Colace) 1 tab PO BID [facility] Last Admin: 04/18/18 20:37 Dose: 1 tab Sennosides (Senokot) 17.2 mg PO Q12H PRN PRN Reason: Moderate Constipation Sodium Chloride (Ns Flush) 5 ml IV.FLUSH UNSCH PRN PRN Reason: Flush Infusaport <Ashok Mike A - Last Filed: 04/18/18 22:45> Allergies Allergy/AdvReac Type Severity Reaction Status Date / Time No Known Allergies Allergy Verified 04/16/18 18:29 Home Medications Medication Instructions Recorded Confirmed Type docusate sodium 100 mg PO BID 03/03/18 04/16/18 History morphine [MS Contin] 100 mg PO Q8H 03/03/18 04/16/18 History oxycodone 30 mg PO Q4-6H PRN MDD 2.5 tablets 03/03/18 04/16/18 History Exam Vital signs: Vital Signs 04/17/18 12:00 04/17/18 14:24 04/17/18 16:00 Temperature 97.7 F 97.6 F Pulse Rate 106 H 103 H 112 H Respiratory Rate 16 22 16 Blood Pressure 111/60 111/59 L Pulse Oximetry 98 95 04/17/18 16:50 04/17/18 17:07 04/17/18 18:39 Temperature 98.7 F Pulse Rate 82 96 H 93 H Respiratory Rate 18 Blood Pressure 93/61 L 90/55 L 104/59 L Pulse Oximetry 04/17/18 19:59 04/17/18 20:00 04/18/18 00:00 Temperature 97.9 F 97.6 F Pulse Rate 83 97 H 84 Respiratory Rate 16 20 20 Blood Pressure 96/55 L 101/62 Pulse Oximetry 97 92 L 94 L 04/18/18 04:00 04/18/18 07:37 Temperature 97.7 F Pulse Rate 100 H 95 H Respiratory Rate 20 12 Blood Pressure 114/74 Pulse Oximetry 98 97 Intake & Output 04/17/18 04/18/18 04/18/18 18:59 06:59 18:59 Intake Total 810 / 810 830 / 830 100 / 100 Output Total 800 / 800 Balance 10 10 830 / 830 100 / 100 Intake: IV 450 / 450 350 / 350 100 / 100 NS Inj 1,000 ML @ 100 mls/hr IV 350 / 350 .CONT .Q10H [facility] Rx#:[id number] Azithromycin Inj 500 MG In NS 250 / 250 Inj 250 ML @ 250 mls/hr IV.SIG Q24H [facility] Rx#:[id number] Maxipime Inj 1,000 MG In NS Inj 100 / 100 100 / 100 100 / 100 100 ML @ 200 mls/hr IV.SIG Q12H [facility] Rx#:[id number] Oral 360 / 360 480 / 480 Output: Urine 800 / 800 Other: # Voids 4 Date of Last Bowel Movement 04/16/18 04/16/18 # Bowel Movements 1 - Constitutional mild distress, thin (60 pound weight loss with his diagnosis of cancer), cachectic - Routine HEENT Exam Head: Present: normocephalic (Borderline) ENT: Present: mucous membranes dry - Routine Neck Exam Present: supple - Routine Respiratory Exam Present: accessory muscle use (No obvious shortness of breath or wheezing at rest but patient is using oxygen per nasal cannula) - Routine Cardiovascular Exam Present: S1, S2 - Routine Abdominal Exam Present: soft, normoactive bowel sounds <Yessenia Fox - Last Filed: 04/18/18 11:22> Vital signs: Vital Signs 04/18/18 00:00 04/18/18 04:00 04/18/18 07:37 Temperature 97.6 F 97.7 F Pulse Rate 84 100 H 95 H Respiratory Rate 20 20 12 Blood Pressure 101/62 114/74 Pulse Oximetry 94 L 98 97 04/18/18 08:00 04/18/18 16:00 04/18/18 19:44 Temperature 97.8 F 98.2 F Pulse Rate 101 H 114 H 110 H Respiratory Rate 16 20 20 Blood Pressure 97/73 L 139/87 Pulse Oximetry 96 99 04/18/18 20:32 Temperature 98.5 F Pulse Rate 116 H Respiratory Rate 20 Blood Pressure 109/68 Pulse Oximetry 97 Intake & Output 04/18/18 04/18/18 04/19/18 06:59 18:59 06:59 Intake Total 830 / 830 100 / 100 340 / 340 Balance 830 / 830 100 / 100 340 / 340 Weight 56.416 kg Intake: IV 350 / 350 100 / 100 100 / 100 Azithromycin Inj 500 MG In NS 250 / 250 Inj 250 ML @ 250 mls/hr IV.SIG Q24H [facility] Rx#:[id number] Maxipime Inj 1,000 MG In NS Inj 100 / 100 100 / 100 100 / 100 100 ML @ 200 mls/hr IV.SIG Q12H [facility] Rx#:[id number] Oral 480 / 480 240 / 240 Other: # Voids 4 1 Date of Last Bowel Movement 04/16/18 <Ashok Mike - Last Filed: 04/18/18 22:45> Results - Labs CBC & Chem 7: 04/18/18 03:53 04/18/18 03:53 Labs: Laboratory Results - last 24 hr 04/18/18 04/18/18 04/18/18 03:53 03:53 03:53 WBC 12.1 H RBC 3.62 L Hgb 9.6 L Hct 30.0 L MCV 82.8 MCH 26.5 L MCHC 32.0 RDW 21.1 H Plt Count 358 MPV 7.7 Neut % (Auto) 64.4 Lymph % (Auto) 17.4 [place] % (Auto) 14.0 H Eos % (Auto) 3.6 Baso % (Auto) 0.6 Neut # (Auto) 7.8 H Lymph # (Auto) 2.1 [place] # (Auto) 1.7 H Eos # (Auto) 0.4 Baso # (Auto) 0.1 WBC Differential . Differential Comment Auto diff final Sodium 139 Potassium 4.1 Chloride 103 Carbon Dioxide 27.3 Anion Gap 9 BUN 20 H Creatinine 1.06 Estimated GFR 71 L Random Glucose 76 Calcium 8.2 L B-Natriuretic Peptide 183 H - Imaging Impressions Chest X-Ray 04/17/18 14:46 CONCLUSION: No change in combined right middle lobe and lower lobe collapse with a tiny right pleural effusion. <Yessenia Fox - Last Filed: 04/18/18 11:22> - Labs CBC & Chem 7: 04/18/18 03:53 04/18/18 03:53 Labs: Laboratory Results - last 24 hr 04/18/18 04/18/18 04/18/18 03:53 03:53 03:53 WBC 12.1 H RBC 3.62 L Hgb 9.6 L Hct 30.0 L MCV 82.8 MCH 26.5 L MCHC 32.0 RDW 21.1 H Plt Count 358 MPV 7.7 Neut % (Auto) 64.4 Lymph % (Auto) 17.4 [place] % (Auto) 14.0 H Eos % (Auto) 3.6 Baso % (Auto) 0.6 Neut # (Auto) 7.8 H Lymph # (Auto) 2.1 [place] # (Auto) 1.7 H Eos # (Auto) 0.4 Baso # (Auto) 0.1 WBC Differential . Differential Comment Auto diff final Sodium 139 Potassium 4.1 Chloride 103 Carbon Dioxide 27.3 Anion Gap 9 BUN 20 H Creatinine 1.06 Estimated GFR 71 L Random Glucose 76 Calcium 8.2 L B-Natriuretic Peptide 183 H <Ashok Mike - Last Filed: 04/18/18 22:45> Assessment and Plan - Plan 62-year-old thin male with a history of lung cancer status post radiation and chemotherapy. He is currently being evaluated to restart 3 days of chemotherapy in the a.m. discussed with his oncology team who is planning a.m. chemotherapy regimen. Discussed getting his EGD with dilation done first thing in the morning. Dysphasia history and onset approximately 3 months ago affecting swallowing with solids, liquids, and medications.. The patient is eating but is taking very small bites chewing and maneuvering his esophagus to swallow his food. No known EGD in the past and colonoscopy? Approximately 6 months ago but unknown findings or follow-up. Patient is currently a poor historian due to his history. No family history of colon cancer. Patient's swallow issues and dysphasia are probably related to previous radiation treatments. Current labs include WBC count 12.1, hemoglobin 9.6, PT/INR 1.2, bilirubin and LFTs are normal. EGD procedure explained to patient and patient agrees. Plan Diet as tolerated today with swallow precautions. Consent for EGD with dilation first thing in the morning N.p.o. at midnight PPI Monitor labs with special attention to any obvious bleeding or change in hemoglobin and transfuse as needed Further recommendations to follow Patient was seen per myself and Dr. Mike, note was written on his behalf <Yessenia Fox - Last Filed: 04/18/18 11:22> - Attending Attestation Progressive dysphagia reported, will need EGD/Dil after clearance by oncology. possiblely after chemotherapy. Will follow up with you. <Ashok Mike - Last Filed: 04/18/18 22:45>
[2018-04-18] MEDS ORDERED: Heparin Central Flush 100 UNIT/ML 5 ML Vial IV.FLUSH PRN (11:23)
[2018-04-18] MEDS: Heparin Central Flush 100 UNIT/ML 5 ML Vial IV.FLUSH PRN (11:45)
--- NOTE | 2018-04-18 12:35 | ECG ---
Date Performed: 04/17/2018 Time Performed: 12:14:00 PTAGE: 62 years EKG: ATRIAL FIBRILLATION WITH RAPID VENTRICULAR RESPONSE MARKED LEFT AXIS DEVIATION LOW QRS VOLT AGE IN EXTREMITY LEADS ANTEROSEPTAL MYOCARDIAL INFARCTION , PROBABLY OLD ABNORMAL ECG Since PREVIOUS TRACING , no significant change noted PREVIOUS TRACIN03/12/2018 11.13 DOCTOR: Brigida Milian Interpretating Date/Time 04/18/2018 12:33:56
[2018-04-18] MEDS: Azithromycin Inj 500 MG in Sodium Chlor 0.9% Inj 250 ML IV.SIG SCH (21:39)
[2018-04-19] MEDS: Heparin Central Flush 100 UNIT/ML 5 ML Vial IV.FLUSH PRN ×2 (04:21→09:03)
[2018-04-19 04:48] LABS: Baso # (Auto) 0.1 th/mm3 (0.0-0.2); Eos # (Auto) 0.5 th/mm3 (0.0-0.4); Eos % (Auto) 4.1 % (0.0-4.0); Hematocrit 31.2 % (39.0-51.0); Hemoglobin 9.8 gm/dL (13.0-17.0); Lymph # (Auto) 2.2 th/mm3 (1.0-4.8); Mean Corpuscular HGB Conc 31.4 % (32.0-36.0); Mean Corpuscular Hemoglobin 26.5 pg (27.0-34.0); Mean Corpuscular Volume 84.3 fL (80.0-100.0); Mean Platelet Volume 7.7 fL (7.0-11.0); Mono # (Auto) 1.2 th/mm3 (0.0-0.9); Mono % (Auto) 9.7 % (0.0-8.0); Neut # (Auto) 8.4 th/mm3 (1.8-7.7); Neut % (Auto) 67.2 % (16.0-70.0); Platelet Count 363 th/mm3 (150-450); Red Cell Distribution Width 21.2 % (11.6-17.2); White Blood Count 12.5 th/mm3 (4.0-11.0)
[2018-04-19 05:04] LABS: Calcium 8.3 mg/dL (8.5-10.1); Carbon Dioxide 28.6 meq/L (21.0-32.0); Magnesium 1.6 mg/dL (1.5-2.5); Potassium 4.5 meq/L (3.5-5.1)
[2018-04-19] MEDS: Morphine Sulfate 100 MG SR Tablet PO SCH ×3 (06:41→22:10)
[2018-04-19] MEDS ORDERED: Cathflo Activase Inj 2 MG Vial I-CATHETER PRN (07:52)
[2018-04-19] MEDS: Senna/Docusate Sodium 8.6/50 MG Tablet PO SCH ×2 (08:18→21:12)
[2018-04-19] MEDS: Amiodarone 200 MG Tablet PO SCH (08:18)
[2018-04-19] MEDS: Metoprolol Tartrate 50 MG Tablet PO SCH ×2 (08:18→21:12)
--- NOTE | 2018-04-19 10:20 | P.PNONC ---
Subjective Interval history: Afebrile. Patient sitting in chair, eating breakfast. Objective Vital Signs/Intake & Output: Vital Signs 04/18/18 16:00 04/18/18 19:44 04/18/18 20:04 Temperature 98.2 F Pulse Rate 114 H 110 H 109 H Respiratory Rate 20 20 Blood Pressure 139/87 Pulse Oximetry 99 04/18/18 20:32 04/18/18 22:08 04/18/18 23:15 Temperature 98.5 F 98.2 F Pulse Rate 116 H 97 H Respiratory Rate 20 16 18 Blood Pressure 109/68 97/64 L Pulse Oximetry 97 96 04/18/18 23:35 04/18/18 23:43 04/19/18 04:00 Temperature 97.9 F Pulse Rate 95 H 101 H Respiratory Rate 16 18 Blood Pressure 121/79 Pulse Oximetry 99 04/19/18 04:03 04/19/18 04:30 04/19/18 07:04 Temperature Pulse Rate 112 H Respiratory Rate 16 16 Blood Pressure Pulse Oximetry 04/19/18 08:00 04/19/18 08:02 Temperature 98.3 F Pulse Rate 107 H 108 H Respiratory Rate 18 18 Blood Pressure 122/71 Pulse Oximetry 98 96 Intake & Output 04/18/18 04/19/18 04/19/18 18:59 06:59 18:59 Intake Total 100 / 100 590 / 590 100 / 100 Balance 100 / 100 590 / 590 100 / 100 Weight 56.416 kg 55.8 kg Intake: IV 100 / 100 350 / 350 100 / 100 Azithromycin Inj 500 MG In NS 250 / 250 Inj 250 ML @ 250 mls/hr IV.SIG Q24H [facility] Rx#:[id number] Maxipime Inj 1,000 MG In NS Inj 100 / 100 100 / 100 100 / 100 100 ML @ 200 mls/hr IV.SIG Q12H [facility] Rx#:[id number] Oral 240 / 240 Other: # Voids 1 Date of Last Bowel Movement 04/18/18 04/18/18 Result Diagrams: 04/19/18 04:20 04/19/18 04:20 Laboratory Results: Laboratory Results - last 24 hr 04/19/18 04/19/18 04:20 04:20 WBC 12.5 H RBC 3.70 L Hgb 9.8 L Hct 31.2 L MCV 84.3 MCH 26.5 L MCHC 31.4 L RDW 21.2 H Plt Count 363 MPV 7.7 Neut % (Auto) 67.2 Lymph % (Auto) 18.0 [place] % (Auto) 9.7 H Eos % (Auto) 4.1 H Baso % (Auto) 1.0 Neut # (Auto) 8.4 H Lymph # (Auto) 2.2 [place] # (Auto) 1.2 H Eos # (Auto) 0.5 H Baso # (Auto) 0.1 WBC Differential . Differential Comment Auto diff final Sodium 136 Potassium 4.5 Chloride 102 Carbon Dioxide 28.6 Anion Gap 5 BUN 17 Creatinine 0.95 Estimated GFR 80 L Random Glucose 89 Calcium 8.3 L Phosphorus 4.0 Magnesium 1.6 Albumin 2.0 L Culture Results: Microbiology 04/18/18 12:10 Gram Stain - Final Sputum - Expectorated Sputum 04/16/18 19:40 Aerobic Blood Culture - Preliminary Blood - Peripheral No growth in 2 days Anaerobic Blood Culture - Preliminary No growth in 2 days 04/17/18 17:30 Streptococcus pneumoniae Antigen (M - Final Urine - Clean Catch Urine POS S. pneumoniae antigen 04/17/18 17:30 Legionella Antigen - Final Urine - Clean Catch Urine Presumptive negative for Legionella pneumophila serogroup 1 antigen in urine, suggesting no recent or recurrent infection. Infection due to Legionella cannot be ruled out since other serogroups and species may cause disease, antigen may not be present in urine in early infection, and the level of antigen present in the urine may be below the detection limit of the test. Medications: Active Medications Generic Name Dose Route Start Last Admin Trade Name Freq PRN Reason Stop Dose Admin Albuterol 1 ampul 04/17/18 14:00 04/19/18 07:57 Duoneb Neb (Flower) NEB 1 ampul Q6HR WHILE AWAKE NEB [facility] Administration Amiodarone HCl 400 mg 04/17/18 09:00 04/19/18 08:18 Cordarone PO 400 mg DAILY [facility] Administration Aspirin 81 mg 04/17/18 09:00 04/19/18 08:18 Ecotrin PO 81 mg DAILY [facility] Administration Clonidine HCl 0.1 mg 04/17/18 09:00 04/19/18 08:18 Catapres PO 0.1 mg Q12HR [facility] Administration Heparin Sodium (Porcine) 250 unit 04/18/18 11:23 04/19/18 09:03 Heparin Central Flush IV.FLUSH 250 unit UNSCH PRN Administration Flush Infusapot Cefepime HCl 1,000 mg/ Sodium 100 mls @ 200 mls/hr 04/17/18 08:00 04/19/18 09 :04 Chloride IV.SIG Infused Q12H [facility] Infusion Azithromycin 500 mg/ Sodium 250 mls @ 250 mls/hr 04/17/18 21:00 04/18/18 22: 40 Chloride IV.SIG Infused Q24H [facility] Metoprolol Tartrate 50 mg 04/18/18 09:00 04/19/18 08:18 Lopressor PO 50 mg BID [facility] Administration Morphine Sulfate 100 mg 04/16/18 22:00 04/19/18 06:41 Oramorph Sr PO 100 mg Q8HR [facility] Administration Oxycodone HCl 30 mg 04/16/18 21:30 04/19/18 08:17 Roxicodone PO 30 mg Q4H PRN Administration PAIN SCALE 3 TO 5 Senna/Docusate Sodium 1 tab 04/17/18 09:00 04/19/18 08:18 Heather-Colace PO 1 tab BID [facility] Administration Objective Remarks: GENERAL: Chronically ill-appearing elderly male patient, sitting in chair, in no acute distress. SKIN: Warm and dry. HEAD: Normocephalic. EYES: No scleral icterus. No injection or drainage. NECK: Supple, trachea midline. CARDIOVASCULAR: Regular rate and rhythm without murmurs. RESPIRATORY: Posterior breath sounds diminished. Non-labored at rest. GASTROINTESTINAL: Abdomen soft, non-tender, nondistended. EXTREMITIES: No cyanosis or edema. MUSCULOSKELETAL: Adequate muscle tone. NEUROLOGICAL: No obvious focal deficit. Awake, alert, and oriented x3. Assessment/Plan - Plan 62-year-old male with history of metastatic small cell lung cancer admitted with chest pain and shortness of breath. He received his first cycle of carbo and SENIOR TECHNOLOGIST-16 in late February. He has also seen Dr. 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 Plan for stereotactic radiation. Unfortunately he had difficulty with getting his second cycle outpatient and returned to the emergency room after he also ran out of his pain medications. 1. Chemotherapy with carbo/ SENIOR TECHNOLOGIST-16. 2. Awaiting esophageal stretching, chemotherapy today will take approximately 3 hours to complete, may proceed with esophageal stretching after this. 3. Continue supportive care - Attending Statement The exam, history, and the medical decision-making described in the above note were completed with the assistance of the mid-level provider. I reviewed and agree with the findings presented. I attest that I had a [id number] encounter with the patient on the same day, and personally performed and documented my assessment and findings in the medical record. Patient still has shortness of breath. He has bilateral chest wall pain with deep inspiration. He has mild dysphagia. Clinically he is stable. He will proceed with day 1 of carboplatin and etoposide today. He will have chemotherapy the next 3 days if stable. Monitor labs.
[2018-04-19] MEDS: Granisetron 1 MG/ML Vial IV.PUSH SCH (10:38)
[2018-04-19] MEDS: Sodium Chlor 0.9% Inj 250 ML IV.SIG SCH (10:39)
[2018-04-19] MEDS: ETOPOSIDE IV.SIG SCH ×2 (11:00→11:29)
[2018-04-19] MEDS: SODIUM CHLOR 0.9% IV.SIG SCH ×2 (11:00→11:29)
[2018-04-19] MEDS ORDERED: Dexamethasone Inj 20 MG in Sodium Chlor 0.9% Inj 50 ML IV.SIG SCH (11:30)
[2018-04-19] MEDS ORDERED: SODIUM CHLOR 0.9% IV.SIG ONE (12:00)
[2018-04-19] MEDS ORDERED: CARBOPLATIN IV.SIG ONE (12:00)
--- NOTE | 2018-04-19 13:10 | P.PNGI ---
Subjective Interval history: Patient is sitting up in the chair receiving day 1 of chemotherapy family member in room patient is drowsy but responds to verbal stimuli currently denies any nausea or vomiting some decrease in appetite. Still noting some problems with dysphasia but being very cautious with chewing <Yessenia Fox - Last Filed: 04/19/18 13:06> Physical Exam Vital signs: Vital Signs 04/18/18 16:00 04/18/18 19:44 04/18/18 20:04 Temperature 98.2 F Pulse Rate 114 H 110 H 109 H Respiratory Rate 20 20 Blood Pressure 139/87 Pulse Oximetry 99 04/18/18 20:32 04/18/18 22:08 04/18/18 23:15 Temperature 98.5 F 98.2 F Pulse Rate 116 H 97 H Respiratory Rate 20 16 18 Blood Pressure 109/68 97/64 L Pulse Oximetry 97 96 04/18/18 23:35 04/18/18 23:43 04/19/18 04:00 Temperature 97.9 F Pulse Rate 95 H 101 H Respiratory Rate 16 18 Blood Pressure 121/79 Pulse Oximetry 99 04/19/18 04:03 04/19/18 04:30 04/19/18 07:04 Temperature Pulse Rate 112 H Respiratory Rate 16 16 Blood Pressure Pulse Oximetry 04/19/18 08:00 04/19/18 08:02 04/19/18 11:04 Temperature 98.3 F 98.4 F Pulse Rate 107 H 108 H 96 H Respiratory Rate 18 18 16 Blood Pressure 122/71 98/53 L Pulse Oximetry 98 96 96 Intake & Output 04/18/18 04/19/18 04/19/18 18:59 06:59 18:59 Intake Total 100 / 100 590 / 590 663.15 / 663.15 Balance 100 / 100 590 / 590 663.15 / 663.15 Weight 56.416 kg 55.8 kg Intake: IV 100 / 100 350 / 350 663.15 / 663.15 Azithromycin Inj 500 MG In NS 250 / 250 Inj 250 ML @ 250 mls/hr IV.SIG Q24H [facility] Rx#:[id number] Maxipime Inj 1,000 MG In NS Inj 100 / 100 100 / 100 100 / 100 100 ML @ 200 mls/hr IV.SIG Q12H [facility] Rx#:[id number] Decadron Inj 20 MG In NS Inj 50 55 / 55 ML @ 220 mls/hr IV.SIG ONCE [facility] Rx#:[id number] Vepesid Inj 163 MG In NS Inj 508.15 / 508.15 500 ML @ 508.15 mls/hr IV.SIG Q24H [facility] Rx#:[id number] Oral 240 / 240 Other: # Voids 1 Date of Last Bowel Movement 04/18/18 04/18/18 - Constitutional no acute distress - Routine HEENT Exam Head: Present: normocephalic ENT: Present: mucous membranes dry - Routine Neck Exam Present: supple - Routine Respiratory Exam Present: accessory muscle use - Routine Cardiovascular Exam Present: S1 (No obvious shortness of breath), S2 - Routine Abdominal Exam Present: soft, normoactive bowel sounds (Round,) - Routine Skin Exam Present: pallor <Yessenia Fox M - Last Filed: 04/19/18 13:06> Vital signs: Vital Signs 04/18/18 19:44 04/18/18 20:04 04/18/18 20:32 Temperature 98.5 F Pulse Rate 110 H 109 H 116 H Respiratory Rate 20 20 Blood Pressure 109/68 Pulse Oximetry 97 04/18/18 22:08 04/18/18 23:15 04/18/18 23:35 Temperature 98.2 F Pulse Rate 97 H 95 H Respiratory Rate 16 18 Blood Pressure 97/64 L Pulse Oximetry 96 04/18/18 23:43 04/19/18 04:00 04/19/18 04:03 Temperature 97.9 F Pulse Rate 101 H 112 H Respiratory Rate 16 18 Blood Pressure 121/79 Pulse Oximetry 99 04/19/18 04:30 04/19/18 07:04 04/19/18 08:00 Temperature 98.3 F Pulse Rate 107 H Respiratory Rate 16 16 18 Blood Pressure 122/71 Pulse Oximetry 98 04/19/18 08:02 04/19/18 11:04 04/19/18 14:09 Temperature 98.4 F Pulse Rate 108 H 96 H 98 H Respiratory Rate 18 16 18 Blood Pressure 98/53 L Pulse Oximetry 96 96 04/19/18 15:32 Temperature 97.7 F Pulse Rate 97 H Respiratory Rate 18 Blood Pressure 104/64 Pulse Oximetry 99 Intake & Output 04/18/18 04/19/18 04/19/18 18:59 06:59 18:59 Intake Total 100 / 100 590 / 590 962.45 / 962.45 Balance 100 / 100 590 / 590 962.45 / 962.45 Weight 56.416 kg 55.8 kg Intake: IV 100 / 100 350 / 350 962.45 / 962.45 Azithromycin Inj 500 MG In NS 250 / 250 Inj 250 ML @ 250 mls/hr IV.SIG Q24H [facility] Rx#:[id number] Paraplatin Inj 493 MG In NS Inj 299.3 / 299.3 250 ML @ 598.6 mls/hr IV.SIG ONCE ONE Rx#:[id number] Maxipime Inj 1,000 MG In NS Inj 100 / 100 100 / 100 100 / 100 100 ML @ 200 mls/hr IV.SIG Q12H [facility] Rx#:[id number] Decadron Inj 20 MG In NS Inj 50 55 / 55 ML @ 220 mls/hr IV.SIG ONCE [facility] Rx#:[id number] Vepesid Inj 163 MG In NS Inj 508.15 / 508.15 500 ML @ 508.15 mls/hr IV.SIG Q24H [facility] Rx#:[id number] Oral 240 / 240 Other: # Voids 1 Date of Last Bowel Movement 04/18/18 04/18/18 <Ashok Mike A - Last Filed: 04/19/18 16:22> Results - Labs CBC & Chem 7: 04/19/18 04:20 04/19/18 04:20 Laboratory Results - last 24 hr 04/19/18 04/19/18 04:20 04:20 WBC 12.5 H RBC 3.70 L Hgb 9.8 L Hct 31.2 L MCV 84.3 MCH 26.5 L MCHC 31.4 L RDW 21.2 H Plt Count 363 MPV 7.7 Neut % (Auto) 67.2 Lymph % (Auto) 18.0 [place] % (Auto) 9.7 H Eos % (Auto) 4.1 H Baso % (Auto) 1.0 Neut # (Auto) 8.4 H Lymph # (Auto) 2.2 [place] # (Auto) 1.2 H Eos # (Auto) 0.5 H Baso # (Auto) 0.1 WBC Differential . Differential Comment Auto diff final Sodium 136 Potassium 4.5 Chloride 102 Carbon Dioxide 28.6 Anion Gap 5 BUN 17 Creatinine 0.95 Estimated GFR 80 L Random Glucose 89 Calcium 8.3 L Phosphorus 4.0 Magnesium 1.6 Albumin 2.0 L Microbiology 04/16/18 19:40 Blood - Peripheral Aerobic Blood Culture - Preliminary No growth in 3 days 04/16/18 19:40 Blood - Peripheral Anaerobic Blood Culture - Preliminary No growth in 3 days 04/18/18 12:10 Sputum - Expectorated Sputum Gram Stain - Final <Yessenia Fox - Last Filed: 04/19/18 13:06> - Labs CBC & Chem 7: 04/19/18 04:20 04/19/18 04:20 Laboratory Results - last 24 hr 04/19/18 04/19/18 04:20 04:20 WBC 12.5 H RBC 3.70 L Hgb 9.8 L Hct 31.2 L MCV 84.3 MCH 26.5 L MCHC 31.4 L RDW 21.2 H Plt Count 363 MPV 7.7 Neut % (Auto) 67.2 Lymph % (Auto) 18.0 [place] % (Auto) 9.7 H Eos % (Auto) 4.1 H Baso % (Auto) 1.0 Neut # (Auto) 8.4 H Lymph # (Auto) 2.2 [place] # (Auto) 1.2 H Eos # (Auto) 0.5 H Baso # (Auto) 0.1 WBC Differential . Differential Comment Auto diff final Sodium 136 Potassium 4.5 Chloride 102 Carbon Dioxide 28.6 Anion Gap 5 BUN 17 Creatinine 0.95 Estimated GFR 80 L Random Glucose 89 Calcium 8.3 L Phosphorus 4.0 Magnesium 1.6 Albumin 2.0 L Microbiology 04/18/18 12:10 Sputum - Expectorated Sputum Gram Stain - Final 04/18/18 12:10 Sputum - Expectorated Sputum Sputum Culture - Preliminary Moderate growth normal respiratory [place] at 24 hours 04/16/18 19:40 Blood - Peripheral Aerobic Blood Culture - Preliminary No growth in 3 days 04/16/18 19:40 Blood - Peripheral Anaerobic Blood Culture - Preliminary No growth in 3 days <Ashok Mike - Last Filed: 04/19/18 16:22> Assessment and Plan - Plan 62-year-old thin male with a history of lung cancer status post radiation and chemotherapy. He is currently being evaluated to restart 3 days of chemotherapy in the a.m. discussed with his oncology team who is planning a.m. chemotherapy regimen. Discussed getting his EGD with dilation done first thing in the morning. Dysphasia history and onset approximately 3 months ago affecting swallowing with solids, liquids, and medications.. The patient is eating but is taking very small bites chewing and maneuvering his esophagus to swallow his food. No known EGD in the past and colonoscopy? Approximately 6 months ago but unknown findings or follow-up. Patient is currently a poor historian due to his history. No family history of colon cancer. Patient's swallow issues and dysphasia are probably related to previous radiation treatments. Current labs include WBC count 12.1, hemoglobin 9.6, PT/INR 1.2, bilirubin and LFTs are normal. EGD procedure explained to patient and patient agrees. 04/19/2018 patient is now in room 234 and received an day 1 of his chemotherapy patient still has some symptoms of dysphasia but is being very cautious to chew his food slowly and to have small bites. No nausea no vomiting but decreased appetite noted. Hemoglobin 9.8, PT/INR 1.2, WBC count 12.5. Initially discussed with patient having EGD with dilation but patient is set up for chemotherapy for the next 3 days. Plan is to do EGD Th a.m. pending no complications. No obvious bleeding noted Plan Diet as tolerated today with swallow precautions. Consider EGD a.m. with dilation after chemotherapy 3 days Supportive care PPI Monitor labs Patient was seen per myself and Dr. Mike, note was written on his behalf <Yessenia Fox M - Last Filed: 04/19/18 13:06> - Attending Attestation Seen and examined, plan as above. Will need to assess the timing of the EGD after his chemotherapy. Overall no change in his dysphagia. <Ashok Mike - Last Filed: 04/19/18 16:22>
--- NOTE | 2018-04-19 14:27 | P.PN ---
Subjective Interval history: 62-year-old male who is seen and examined today for follow-up on systemic inflammatory response syndrome, dysphagia, metastatic small cell carcinoma lung. Patient states that he still having problems with swallowing. Still having pain in his chest when he takes a deep breath. Patient is not on any oxygen with good O2 saturations. Patient is undergoing chemotherapy at this time and plans for endoscopy after complete. Vital signs are stable, patient remains afebrile. Physical Exam Vital signs: Vital Signs 04/18/18 16:00 04/18/18 19:44 04/18/18 20:04 Temperature 98.2 F Pulse Rate 114 H 110 H 109 H Respiratory Rate 20 20 Blood Pressure 139/87 Pulse Oximetry 99 04/18/18 20:32 04/18/18 22:08 04/18/18 23:15 Temperature 98.5 F 98.2 F Pulse Rate 116 H 97 H Respiratory Rate 20 16 18 Blood Pressure 109/68 97/64 L Pulse Oximetry 97 96 04/18/18 23:35 04/18/18 23:43 04/19/18 04:00 Temperature 97.9 F Pulse Rate 95 H 101 H Respiratory Rate 16 18 Blood Pressure 121/79 Pulse Oximetry 99 04/19/18 04:03 04/19/18 04:30 04/19/18 07:04 Temperature Pulse Rate 112 H Respiratory Rate 16 16 Blood Pressure Pulse Oximetry 04/19/18 08:00 04/19/18 08:02 04/19/18 11:04 Temperature 98.3 F 98.4 F Pulse Rate 107 H 108 H 96 H Respiratory Rate 18 18 16 Blood Pressure 122/71 98/53 L Pulse Oximetry 98 96 96 Intake & Output 04/18/18 04/19/18 04/19/18 18:59 06:59 18:59 Intake Total 100 / 100 590 / 590 663.15 / 663.15 Balance 100 / 100 590 / 590 663.15 / 663.15 Weight 56.416 kg 55.8 kg Intake: IV 100 / 100 350 / 350 663.15 / 663.15 Azithromycin Inj 500 MG In NS 250 / 250 Inj 250 ML @ 250 mls/hr IV.SIG Q24H [facility] Rx#:[id number] Maxipime Inj 1,000 MG In NS Inj 100 / 100 100 / 100 100 / 100 100 ML @ 200 mls/hr IV.SIG Q12H [facility] Rx#:[id number] Decadron Inj 20 MG In NS Inj 50 55 / 55 ML @ 220 mls/hr IV.SIG ONCE [facility] Rx#:[id number] Vepesid Inj 163 MG In NS Inj 508.15 / 508.15 500 ML @ 508.15 mls/hr IV.SIG Q24H [facility] Rx#:[id number] Oral 240 / 240 Other: # Voids 1 Date of Last Bowel Movement 04/18/18 04/18/18 Narrative: GENERAL: Well-developed, cachectic, in no acute distress. alert and orientated HEENT: Head is normocephalic without any lesions or masses noted. Facial features are symmetric. Eyes: Extraocular muscles are intact. Conjunctivae were clear. NECK: Supple without any masses. Trachea midline no deviation. No JVD, CARDIAC: Regular rhythm, regular rate. S1/S2 are heard. No murmurs gallops or rubs. LUNGS: Diminished breath sounds noted in the right lower lung bush no wheeze, rhonchi or rales. No use of accessory muscles on inspiration or expiration. ABDOMEN: Soft, nontender. Nondistended. Bowel sounds heard in all 4 quadrants. No organomegaly or masses. Negative rebound, negative guarding EXTREMITIES: No edema, pulses are equal bilaterally. No cyanosis or clubbing NEUROLOGY: Mood and affect appear appropriate. Cranial nerves II through XII grossly intact. Moving all extremities, speech is clear Results - Labs CBC & Chem 7: 04/19/18 04:20 04/19/18 04:20 Laboratory Results - last 24 hr 04/19/18 04/19/18 04:20 04:20 WBC 12.5 H RBC 3.70 L Hgb 9.8 L Hct 31.2 L MCV 84.3 MCH 26.5 L MCHC 31.4 L RDW 21.2 H Plt Count 363 MPV 7.7 Neut % (Auto) 67.2 Lymph % (Auto) 18.0 [place] % (Auto) 9.7 H Eos % (Auto) 4.1 H Baso % (Auto) 1.0 Neut # (Auto) 8.4 H Lymph # (Auto) 2.2 [place] # (Auto) 1.2 H Eos # (Auto) 0.5 H Baso # (Auto) 0.1 WBC Differential . Differential Comment Auto diff final Sodium 136 Potassium 4.5 Chloride 102 Carbon Dioxide 28.6 Anion Gap 5 BUN 17 Creatinine 0.95 Estimated GFR 80 L Random Glucose 89 Calcium 8.3 L Phosphorus 4.0 Magnesium 1.6 Albumin 2.0 L Microbiology 04/16/18 19:40 Blood - Peripheral Aerobic Blood Culture - Preliminary No growth in 3 days 04/16/18 19:40 Blood - Peripheral Anaerobic Blood Culture - Preliminary No growth in 3 days 04/18/18 12:10 Sputum - Expectorated Sputum Gram Stain - Final Assessment and Plan - Assessment (1) SIRS (systemic inflammatory response syndrome) Code(s): R65.10 - Systemic inflammatory response syndrome (SIRS) of non- infectious origin without acute organ dysfunction Status: Acute (2) PNA (pneumonia) Code(s): J18.9 - Pneumonia, unspecified organism Status: Acute (3) Lung cancer Code(s): C34.90 - Malignant neoplasm of unspecified part of unspecified bronchus or lung Status: Acute (4) Intractable pain Code(s): R52 - Pain, unspecified Status: Acute - Plan Sepsis, resolved -Patient did meet criteria on admission with leukocytosis, tachycardia, -Chest x-ray did not indicate any infiltrate or source of infection -Urinalysis was unremarkable -Blood cultures remain negative for 3 days -Strep pneumonia antigen was positive -Sputum culture is pending Strep pneumonia antigen positive -Continue current antibiotics to include cefepime and Zithromax for a total of 10 days Chronic obstructive pulmonary disease with possible exacerbation -Clinical symptoms of cough, productive sputum, SOB -History of smoking -IV abx as above -Continue scheduled Duonebs while awake -Tessalon Perles for cough Atrial fibrillation, could be chronic -Original EKG showing irregular, irregular heart rate which could be age fibrillation/atrial flutter -Patient was on telemetry, however too much interference and baseline abnormality unable to determine if any episodes of recurrent atrial fibrillation -Obtain 12-lead EKG -Home medication amiodarone, metoprolol was continued -Patient is on aspirin for anticoagulation, CHADS2 score 1 -Will administer one dose of Cardizem PO 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
[2018-04-19] MEDS: Azithromycin Inj 500 MG in Sodium Chlor 0.9% Inj 250 ML IV.SIG SCH (22:11)
[2018-04-20] MEDS: Heparin Central Flush 100 UNIT/ML 5 ML Vial IV.FLUSH PRN (05:15)
[2018-04-20] MEDS: Morphine Sulfate 100 MG SR Tablet PO SCH ×3 (06:07→22:09)
[2018-04-20 06:34] LABS: Baso % (Auto) 0.3 % (0.0-2.0); Eos % (Auto) 0.1 % (0.0-4.0); Hemoglobin 9.6 gm/dL (13.0-17.0); Lymph % (Auto) 7.1 % (9.0-44.0); Mean Corpuscular HGB Conc 31.8 % (32.0-36.0); Mean Corpuscular Hemoglobin 26.5 pg (27.0-34.0); Mean Corpuscular Volume 83.4 fL (80.0-100.0); Mean Platelet Volume 7.6 fL (7.0-11.0); Mono # (Auto) 0.3 th/mm3 (0.0-0.9); Mono % (Auto) 2.3 % (0.0-8.0); Neut # (Auto) 13.2 th/mm3 (1.8-7.7); Neut % (Auto) 90.2 % (16.0-70.0); Platelet Count 391 th/mm3 (150-450); Red Cell Distribution Width 21.1 % (11.6-17.2); White Blood Count 14.7 th/mm3 (4.0-11.0)
[2018-04-20 07:01] LABS: Albumin 2.2 g/dL (3.4-5.0); Anion Gap 9 meq/L (5-15); Aspartate Aminotransferase 68 U/L (15-37); Blood Urea Nitrogen 19 mg/dL (7-18); Calcium 8.7 mg/dL (8.5-10.1); Carbon Dioxide 29.2 meq/L (21.0-32.0); Chloride 101 meq/L (98-107); Glomerular Filtration Rate Greater Than 89 mL/min (>89); Glucose,Random 126 mg/dL (74-106); Potassium 4.6 meq/L (3.5-5.1); Sodium 139 meq/L (136-145)
[2018-04-20 07:04] LABS: Alanine Aminotransferase 56 U/L (12-78)
[2018-04-20 07:09] LABS: Alkaline Phosphatase 253 U/L (45-117); Total Protein 7.3 g/dL (6.4-8.2)
[2018-04-20] MEDS: Metoprolol Tartrate 50 MG Tablet PO SCH ×2 (08:54→20:56)
[2018-04-20] MEDS: Senna/Docusate Sodium 8.6/50 MG Tablet PO SCH ×2 (08:54→20:56)
[2018-04-20] MEDS: Amiodarone 200 MG Tablet PO SCH (08:56)
[2018-04-20] MEDS: Dexamethasone Inj 10 MG in Sodium Chlor 0.9% Inj 50 ML IV.SIG SCH (12:29)
[2018-04-20] MEDS: Granisetron 1 MG/ML Vial IV.PUSH SCH (12:30)
[2018-04-20] MEDS: Sodium Chlor 0.9% Inj 250 ML IV.SIG SCH (12:30)
[2018-04-20] MEDS: SODIUM CHLOR 0.9% IV.SIG SCH (12:41)
[2018-04-20] MEDS: ETOPOSIDE IV.SIG SCH (12:41)
--- NOTE | 2018-04-20 13:13 | ECG ---
Date Performed: 04/19/2018 Time Performed: 18:34:23 PTAGE: 62 years EKG: ATRIAL FIBRILLATION LOW QRS VOLTAGE IN EXTREMITY LEADS SEPTAL MYOCARDIAL INFARCTION , PROBA BERHANE OLD ABNORMAL ECG PREVIOUS TRACING : 04/17/2018 12.14 DOCTOR: Allen Abebe Interpretating Date/Time 04/20/2018 13:08:33
--- NOTE | 2018-04-20 14:11 | P.PN ---
Subjective Interval history: afebrile up on chair patient ate 100% per staff nurse but per patient complains of pain and difficulty swallowing even with water Physical Exam Vital signs: Vital Signs 04/19/18 15:32 04/19/18 19:32 04/19/18 21:00 Temperature 97.7 F Pulse Rate 97 H 90 Respiratory Rate 18 18 Blood Pressure 104/64 Pulse Oximetry 99 98 99 04/19/18 22:10 04/19/18 22:40 04/20/18 00:00 Temperature Pulse Rate Respiratory Rate 17 16 Blood Pressure Pulse Oximetry 99 04/20/18 00:09 04/20/18 00:11 04/20/18 01:36 Temperature 97.4 F L Pulse Rate 81 Respiratory Rate 16 16 Blood Pressure 87/63 L 92/67 L Pulse Oximetry 99 04/20/18 04:00 04/20/18 05:01 04/20/18 06:37 Temperature 97.7 F Pulse Rate 92 H Respiratory Rate 18 16 Blood Pressure 112/72 Pulse Oximetry 98 98 04/20/18 08:00 04/20/18 09:22 04/20/18 12:00 Temperature 97.7 F 97.4 F L Pulse Rate 106 H 78 113 H Respiratory Rate 18 16 22 Blood Pressure 118/84 103/73 Pulse Oximetry 98 98 99 Intake & Output 04/19/18 04/20/18 04/20/18 18:59 06:59 18:59 Intake Total 962.45 / 962.45 1170 / 1170 152.5 / 152.5 Balance 962.45 / 962.45 1170 / 1170 152.5 / 152.5 Weight 57.062 kg Intake: IV 962.45 / 962.45 450 / 450 152.5 / 152.5 Azithromycin Inj 500 MG In NS 250 / 250 Inj 250 ML @ 250 mls/hr IV.SIG Q24H [facility] Rx#:[id number] Paraplatin Inj 493 MG In NS Inj 299.3 / 299.3 250 ML @ 598.6 mls/hr IV.SIG ONCE ONE Rx#:[id number] Maxipime Inj 1,000 MG In NS Inj 100 / 100 100 / 100 100 / 100 100 ML @ 200 mls/hr IV.SIG Q12H [facility] Rx#:[id number] Decadron Inj 10 MG In NS Inj 50 55 / 55 52.5 / 52.5 ML @ 210 mls/hr IV.SIG Q24H [facility] Rx#:[id number] Vepesid Inj 163 MG In NS Inj 508.15 / 508.15 500 ML @ 508.15 mls/hr IV.SIG Q24H [facility] Rx#:[id number] NS Inj 250 ML @ KVO IV.SIG 100 / 100 DAILY@1130 [facility] Rx#:[id number] Oral 720 / 720 Other: # Voids 2 Date of Last Bowel Movement 04/18/18 04/19/18 Narrative: GENERAL: Well-developed, cachectic, in no acute distress. alert and oriented x 3 HEENT: Head is normocephalic without any lesions or masses noted. . Eyes: Extraocular muscles are intact. Conjunctivae were clear. NECK: Supple without any masses. Trachea midline no deviation. No JVD, CARDIAC: irRegular rhythm, regular rate. S1/S2 are heard. No murmurs gallops or rubs. LUNGS: Diminished breath sounds noted in the right lower lung bush no wheeze, rhonchi or rales. No use of accessory muscles on inspiration or expiration. ABDOMEN: Soft, nontender. Nondistended. Bowel sounds heard in all 4 quadrants. No organomegaly or masses. Negative rebound, negative guarding EXTREMITIES: trace pretibial edema, pulses are equal bilaterally. No cyanosis or clubbing NEUROLOGY: Mood and affect appear appropriate. Cranial nerves II through XII grossly intact. Moving all extremities, speech is clear Results - Labs CBC & Chem 7: 04/20/18 05:00 04/20/18 05:00 Laboratory Results - last 24 hr 04/20/18 04/20/18 05:00 05:00 WBC 14.7 H RBC 3.60 L Hgb 9.6 L Hct 30.0 L MCV 83.4 MCH 26.5 L MCHC 31.8 L RDW 21.1 H Plt Count 391 MPV 7.6 Neut % (Auto) 90.2 H Lymph % (Auto) 7.1 L [place] % (Auto) 2.3 Eos % (Auto) 0.1 Baso % (Auto) 0.3 Neut # (Auto) 13.2 H Lymph # (Auto) 1.0 [place] # (Auto) 0.3 Eos # (Auto) 0.0 Baso # (Auto) 0.0 WBC Differential . Differential Comment Auto diff final Sodium 139 Potassium 4.6 Chloride 101 Carbon Dioxide 29.2 Anion Gap 9 BUN 19 H Creatinine 0.83 Estimated GFR Greater than 89 Random Glucose 126 H Calcium 8.7 Total Bilirubin 0.3 AST 68 H ALT 56 Alkaline Phosphatase 253 H Total Protein 7.3 D Albumin 2.2 L Microbiology 04/18/18 12:10 Sputum - Expectorated Sputum Gram Stain - Final 04/18/18 12:10 Sputum - Expectorated Sputum Sputum Culture - Final Heavy growth normal respiratory gallo 04/16/18 19:40 Blood - Peripheral Aerobic Blood Culture - Preliminary No growth in 4 days 04/16/18 19:40 Blood - Peripheral Anaerobic Blood Culture - Preliminary No growth in 4 days Assessment and Plan - Assessment (1) SIRS (systemic inflammatory response syndrome) Code(s): R65.10 - Systemic inflammatory response syndrome (SIRS) of non- infectious origin without acute organ dysfunction Status: Acute (2) PNA (pneumonia) Code(s): J18.9 - Pneumonia, unspecified organism Status: Acute (3) Lung cancer Code(s): C34.90 - Malignant neoplasm of unspecified part of unspecified bronchus or lung Status: Acute (4) Intractable pain Code(s): R52 - Pain, unspecified Status: Acute - Plan Sepsis, resolved -Patient did meet criteria on admission with leukocytosis, tachycardia, -Chest x-ray did not indicate any infiltrate or source of infection -Urinalysis was unremarkable -Blood cultures remain negative -Strep pneumonia antigen was positive -Sputum culture is pending Strep pneumonia antigen positive -On cefepime - change to Rocephin for total 10 days - continue on Zithromax Chronic obstructive pulmonary disease with possible exacerbation -Clinical symptoms of cough, productive sputum, SOB -History of smoking -IV abx as above -Continue scheduled Duonebs while awake -Tessalon Perles for cough Atrial fibrillation, could be chronic -Original EKG showing irregular, irregular heart rate which could be age fibrillation/atrial flutter -Patient was on telemetry, however too much interference and baseline abnormality unable to determine if any episodes of recurrent atrial fibrillation -Home medication amiodarone, metoprolol continued -Patient is on aspirin for anticoagulation, CHADS2 score 1 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
--- NOTE | 2018-04-20 14:12 | P.PNONC ---
Subjective Interval history: Afebrile. Patient ambulating around the room. No complaints at this time. Currently receiving chemotherapy. He has a visitor at the bedside. Objective Vital Signs/Intake & Output: Vital Signs 04/19/18 15:32 04/19/18 19:32 04/19/18 21:00 Temperature 97.7 F Pulse Rate 97 H 90 Respiratory Rate 18 18 Blood Pressure 104/64 Pulse Oximetry 99 98 99 04/19/18 22:10 04/19/18 22:40 04/20/18 00:00 Temperature Pulse Rate Respiratory Rate 17 16 Blood Pressure Pulse Oximetry 99 04/20/18 00:09 04/20/18 00:11 04/20/18 01:36 Temperature 97.4 F L Pulse Rate 81 Respiratory Rate 16 16 Blood Pressure 87/63 L 92/67 L Pulse Oximetry 99 04/20/18 04:00 04/20/18 05:01 04/20/18 06:37 Temperature 97.7 F Pulse Rate 92 H Respiratory Rate 18 16 Blood Pressure 112/72 Pulse Oximetry 98 98 04/20/18 08:00 04/20/18 09:22 04/20/18 12:00 Temperature 97.7 F 97.4 F L Pulse Rate 106 H 78 113 H Respiratory Rate 18 16 22 Blood Pressure 118/84 103/73 Pulse Oximetry 98 98 99 Intake & Output 04/19/18 04/20/18 04/20/18 18:59 06:59 18:59 Intake Total 962.45 / 962.45 1170 / 1170 152.5 / 152.5 Balance 962.45 / 962.45 1170 / 1170 152.5 / 152.5 Weight 57.062 kg Intake: IV 962.45 / 962.45 450 / 450 152.5 / 152.5 Azithromycin Inj 500 MG In NS 250 / 250 Inj 250 ML @ 250 mls/hr IV.SIG Q24H [facility] Rx#:[id number] Paraplatin Inj 493 MG In NS Inj 299.3 / 299.3 250 ML @ 598.6 mls/hr IV.SIG ONCE ONE Rx#:[id number] Maxipime Inj 1,000 MG In NS Inj 100 / 100 100 / 100 100 / 100 100 ML @ 200 mls/hr IV.SIG Q12H [facility] Rx#:[id number] Decadron Inj 10 MG In NS Inj 50 55 / 55 52.5 / 52.5 ML @ 210 mls/hr IV.SIG Q24H [facility] Rx#:[id number] Vepesid Inj 163 MG In NS Inj 508.15 / 508.15 500 ML @ 508.15 mls/hr IV.SIG Q24H [facility] Rx#:[id number] NS Inj 250 ML @ KVO IV.SIG 100 / 100 DAILY@1130 [facility] Rx#:[id number] Oral 720 / 720 Other: # Voids 2 Date of Last Bowel Movement 04/18/18 04/19/18 Result Diagrams: 04/20/18 05:00 04/20/18 05:00 Laboratory Results: Laboratory Results - last 24 hr 04/20/18 04/20/18 05:00 05:00 WBC 14.7 H RBC 3.60 L Hgb 9.6 L Hct 30.0 L MCV 83.4 MCH 26.5 L MCHC 31.8 L RDW 21.1 H Plt Count 391 MPV 7.6 Neut % (Auto) 90.2 H Lymph % (Auto) 7.1 L [place] % (Auto) 2.3 Eos % (Auto) 0.1 Baso % (Auto) 0.3 Neut # (Auto) 13.2 H Lymph # (Auto) 1.0 [place] # (Auto) 0.3 Eos # (Auto) 0.0 Baso # (Auto) 0.0 WBC Differential . Differential Comment Auto diff final Sodium 139 Potassium 4.6 Chloride 101 Carbon Dioxide 29.2 Anion Gap 9 BUN 19 H Creatinine 0.83 Estimated GFR Greater than 89 Random Glucose 126 H Calcium 8.7 Total Bilirubin 0.3 AST 68 H ALT 56 Alkaline Phosphatase 253 H Total Protein 7.3 D Albumin 2.2 L Culture Results: Microbiology 04/18/18 12:10 Gram Stain - Final Sputum - Expectorated Sputum Sputum Culture - Final Heavy growth normal respiratory gallo 04/16/18 19:40 Aerobic Blood Culture - Preliminary Blood - Peripheral No growth in 4 days Anaerobic Blood Culture - Preliminary No growth in 4 days 04/17/18 17:30 Streptococcus pneumoniae Antigen (M - Final Urine - Clean Catch Urine POS S. pneumoniae antigen 04/17/18 17:30 Legionella Antigen - Final Urine - Clean Catch Urine Presumptive negative for Legionella pneumophila serogroup 1 antigen in urine, suggesting no recent or recurrent infection. Infection due to Legionella cannot be ruled out since other serogroups and species may cause disease, antigen may not be present in urine in early infection, and the level of antigen present in the urine may be below the detection limit of the test. Medications: Active Medications Generic Name Dose Route Start Last Admin Trade Name Freq PRN Reason Stop Dose Admin Albuterol 1 ampul 04/17/18 14:00 04/20/18 13:48 Duoneb Neb ([facility]) NEB Not Given Q6HR WHILE AWAKE NEB [facility] Amiodarone HCl 400 mg 04/17/18 09:00 04/20/18 08:56 Cordarone PO 400 mg DAILY [facility] Administration Aspirin 81 mg 04/17/18 09:00 04/20/18 08:55 Ecotrin PO Not Given DAILY [facility] Clonidine HCl 0.1 mg 04/17/18 09:00 04/20/18 08:55 Catapres PO 0.1 mg Q12HR [facility] Administration Granisetron HCl 1 mg 04/19/18 11:30 04/20/18 12:30 Kytril Inj IV.PUSH 04/21/18 11:31 1 mg Q24H [facility] Administration Heparin Sodium (Porcine) 250 unit 04/18/18 11:23 04/20/18 05:15 Heparin Central Flush IV.FLUSH 250 unit UNSCH PRN Administration Flush Infusapot Cefepime HCl 1,000 mg/ Sodium 100 mls @ 200 mls/hr 04/17/18 08:00 04/20/18 11 :46 Chloride IV.SIG Infused Q12H [facility] Azithromycin 500 mg/ Sodium 250 mls @ 250 mls/hr 04/17/18 21:00 04/20/18 00: 06 Chloride IV.SIG Infused Q24H [facility] Sodium Chloride 250 mls @ 0 mls/hr 04/19/18 11:30 04/20/18 12:30 Ns Inj IV.SIG 04/21/18 11:31 15 mls/hr DAILY@1130 [facility] Administration KVO Dexamethasone Sodium Phosphate 55 mls @ 220 mls/hr 04/19/18 11:30 04/19/18 10 :50 20 mg/ Sodium Chloride IV.SIG Infused ONCE [facility] Dexamethasone Sodium Phosphate 52.5 mls @ 210 mls/hr 04/20/18 11:30 04/20/18 12:47 10 mg/ Sodium Chloride IV.SIG 04/21/18 11:44 Infused Q24H [facility] Etoposide 163 mg/ Sodium 508.15 mls @ 508.15 mls/hr 04/19/18 12:30 04/20/18 12:41 Chloride IV.SIG 04/21/18 13:29 508.15 mls/hr Q24H [facility] Administration Metoprolol Tartrate 50 mg 04/18/18 09:00 04/20/18 08:54 Lopressor PO 50 mg BID [facility] Administration Morphine Sulfate 100 mg 04/16/18 22:00 04/20/18 13:56 Oramorph Sr PO 100 mg Q8HR [facility] Administration Oxycodone HCl 30 mg 04/16/18 21:30 04/20/18 12:30 Roxicodone PO 30 mg Q4H PRN Administration PAIN SCALE 3 TO 5 Senna/Docusate Sodium 1 tab 04/17/18 09:00 04/20/18 08:54 Heather-Colace PO 1 tab BID [facility] Administration Objective Remarks: GENERAL: Chronically ill-appearing elderly male patient, ambulating in room, in no acute distress. SKIN: Warm and dry. HEAD: Normocephalic. EYES: No scleral icterus. No injection or drainage. NECK: Supple, trachea midline. CARDIOVASCULAR: Regular rate and rhythm without murmurs. RESPIRATORY: Posterior breath sounds with expiratory wheezes throughout. Non- labored with ambulation. GASTROINTESTINAL: Abdomen soft, non-tender, nondistended. EXTREMITIES: No cyanosis or edema. MUSCULOSKELETAL: Adequate muscle tone. NEUROLOGICAL: No obvious focal deficit. Awake, alert, and oriented x3. Assessment/Plan - Plan 62-year-old male with history of metastatic small cell lung cancer admitted with chest pain and shortness of breath. He received his first cycle of carbo and CASE OPERATOR-16 in late February. He has also seen Dr. Lund for history of a solitary lesion in the [employer]. Plan for stereotactic radiation. Unfortunately he had difficulty with getting his second cycle outpatient and returned to the emergency room after he also ran out of his pain medications. 1. Chemotherapy with carbo/ CASE OPERATOR-16. Tolerating well. 2. Swallowing difficulties, awaiting esophageal stretching. 3. Continue supportive care - Attending Statement The exam, history, and the medical decision-making described in the above note were completed with the assistance of the mid-level provider. I reviewed and agree with the findings presented. I attest that I had a [id number] encounter with the patient on the same day, and personally performed and documented my assessment and findings in the medical record. Patient tolerated the first day of chemotherapy very well. The shortness of breath is improved. The chest wall pain also slightly improved. He still has mild dysphagia. He will proceed with day 2 of chemotherapy today.
--- NOTE | 2018-04-20 17:12 | P.PNGI ---
Subjective Interval history: Patient is up walking around in the room but appears to have generalized weakness and complains of some nausea without vomiting, decreased appetite Some weakness and fatigue <Yessenia Fox M - Last Filed: 04/20/18 17:09> Physical Exam Vital signs: Vital Signs 04/19/18 19:32 04/19/18 21:00 04/19/18 22:10 Temperature Pulse Rate 90 Respiratory Rate 18 17 Blood Pressure Pulse Oximetry 98 99 04/19/18 22:40 04/20/18 00:00 04/20/18 00:09 Temperature 97.4 F L Pulse Rate 81 Respiratory Rate 16 16 Blood Pressure 87/63 L Pulse Oximetry 99 99 04/20/18 00:11 04/20/18 01:36 04/20/18 04:00 Temperature Pulse Rate Respiratory Rate 16 Blood Pressure 92/67 L Pulse Oximetry 98 04/20/18 05:01 04/20/18 06:37 04/20/18 08:00 Temperature 97.7 F 97.7 F Pulse Rate 92 H 106 H Respiratory Rate 18 16 18 Blood Pressure 112/72 118/84 Pulse Oximetry 98 98 04/20/18 09:22 04/20/18 12:00 04/20/18 16:00 Temperature 97.4 F L 97.4 F L Pulse Rate 78 113 H 96 H Respiratory Rate 16 22 20 Blood Pressure 103/73 110/78 Pulse Oximetry 98 99 98 Intake & Output 04/19/18 04/20/18 04/20/18 18:59 06:59 18:59 Intake Total 962.45 / 962.45 1170 / 1170 660.65 / 660.65 Balance 962.45 / 962.45 1170 / 1170 660.65 / 660.65 Weight 57.062 kg Intake: IV 962.45 / 962.45 450 / 450 660.65 / 660.65 Azithromycin Inj 500 MG In NS 250 / 250 Inj 250 ML @ 250 mls/hr IV.SIG Q24H [facility] Rx#:[id number] Paraplatin Inj 493 MG In NS Inj 299.3 / 299.3 250 ML @ 598.6 mls/hr IV.SIG ONCE ONE Rx#:[id number] Maxipime Inj 1,000 MG In NS Inj 100 / 100 100 / 100 100 / 100 100 ML @ 200 mls/hr IV.SIG Q12H [facility] Rx#:[id number] Decadron Inj 10 MG In NS Inj 50 55 / 55 52.5 / 52.5 ML @ 210 mls/hr IV.SIG Q24H [facility] Rx#:[id number] Vepesid Inj 163 MG In NS Inj 508.15 / 508.15 508.15 / 508.15 500 ML @ 508.15 mls/hr IV.SIG Q24H [facility] Rx#:[id number] NS Inj 250 ML @ KVO IV.SIG 100 / 100 DAILY@1130 [facility] Rx#:[id number] Oral 720 / 720 Other: # Voids 2 Date of Last Bowel Movement 04/18/18 04/19/18 - Constitutional mild distress, thin, cachectic - Routine HEENT Exam Head: Present: normocephalic ENT: Present: mucous membranes moist - Routine Neck Exam Present: supple - Routine Abdominal Exam Present: soft (Round, no obvious distention soft bowel sounds) - Routine Skin Exam Present: pallor <BruleYessenia M - Last Filed: 04/20/18 17:09> Vital signs: Vital Signs 04/20/18 08:00 04/20/18 09:22 04/20/18 12:00 Temperature 97.7 F 97.4 F L Pulse Rate 106 H 78 113 H Respiratory Rate 18 16 22 Blood Pressure 118/84 103/73 Pulse Oximetry 98 98 99 04/20/18 16:00 04/20/18 19:45 04/20/18 20:50 Temperature 97.4 F L 97.6 F Pulse Rate 96 H 113 H 98 H Respiratory Rate 20 18 18 Blood Pressure 110/78 90/63 L Pulse Oximetry 98 99 97 04/20/18 22:39 04/21/18 00:00 04/21/18 02:11 Temperature 97.6 F Pulse Rate 101 H Respiratory Rate 16 18 15 Blood Pressure 97/71 L Pulse Oximetry 98 04/21/18 04:00 04/21/18 04:56 Temperature 97.9 F Pulse Rate 90 Respiratory Rate 16 Blood Pressure 115/84 Pulse Oximetry 99 98 Intake & Output 04/20/18 04/21/18 04/21/18 18:59 06:59 18:59 Intake Total 1020.65 / 1020.65 730 / 730 Balance 1020.65 / 1020.65 730 / 730 Weight 55.8 kg Intake: IV 660.65 / 660.65 250 / 250 Azithromycin Inj 500 MG In NS 250 / 250 Inj 250 ML @ 250 mls/hr IV.SIG Q24H [facility] Rx#:[id number] Maxipime Inj 1,000 MG In NS Inj 100 / 100 100 ML @ 200 mls/hr IV.SIG Q12H [facility] Rx#:[id number] Decadron Inj 10 MG In NS Inj 50 52.5 / 52.5 ML @ 210 mls/hr IV.SIG Q24H [facility] Rx#:[id number] Vepesid Inj 163 MG In NS Inj 508.15 / 508.15 500 ML @ 508.15 mls/hr IV.SIG Q24H [facility] Rx#:[id number] Oral 360 / 360 480 / 480 Other: # Voids 5 2 Date of Last Bowel Movement 04/20/18 04/20/18 # Bowel Movements 1 <Ashok Mike A - Last Filed: 04/21/18 07:05> Results - Labs CBC & Chem 7: 04/20/18 05:00 04/20/18 05:00 Laboratory Results - last 24 hr 04/20/18 04/20/18 05:00 05:00 WBC 14.7 H RBC 3.60 L Hgb 9.6 L Hct 30.0 L MCV 83.4 MCH 26.5 L MCHC 31.8 L RDW 21.1 H Plt Count 391 MPV 7.6 Neut % (Auto) 90.2 H Lymph % (Auto) 7.1 L [place] % (Auto) 2.3 Eos % (Auto) 0.1 Baso % (Auto) 0.3 Neut # (Auto) 13.2 H Lymph # (Auto) 1.0 [place] # (Auto) 0.3 Eos # (Auto) 0.0 Baso # (Auto) 0.0 WBC Differential . Differential Comment Auto diff final Sodium 139 Potassium 4.6 Chloride 101 Carbon Dioxide 29.2 Anion Gap 9 BUN 19 H Creatinine 0.83 Estimated GFR Greater than 89 Random Glucose 126 H Calcium 8.7 Total Bilirubin 0.3 AST 68 H ALT 56 Alkaline Phosphatase 253 H Total Protein 7.3 D Albumin 2.2 L Microbiology 04/18/18 12:10 Sputum - Expectorated Sputum Gram Stain - Final 04/18/18 12:10 Sputum - Expectorated Sputum Sputum Culture - Final Heavy growth normal respiratory gallo 04/16/18 19:40 Blood - Peripheral Aerobic Blood Culture - Preliminary No growth in 4 days 04/16/18 19:40 Blood - Peripheral Anaerobic Blood Culture - Preliminary No growth in 4 days <Yessenia Fox - Last Filed: 04/20/18 17:09> - Labs CBC & Chem 7: 04/20/18 05:00 04/20/18 05:00 Laboratory Results - last 24 hr 04/20/18 05:00 Total Bilirubin 0.3 ALT 56 Alkaline Phosphatase 253 H Total Protein 7.3 D Microbiology 04/18/18 12:10 Sputum - Expectorated Sputum Gram Stain - Final 04/18/18 12:10 Sputum - Expectorated Sputum Sputum Culture - Final Heavy growth normal respiratory gallo 04/16/18 19:40 Blood - Peripheral Aerobic Blood Culture - Preliminary No growth in 4 days 04/16/18 19:40 Blood - Peripheral Anaerobic Blood Culture - Preliminary No growth in 4 days <Ashok Mike - Last Filed: 04/21/18 07:05> Assessment and Plan - Plan 62-year-old thin male with a history of lung cancer status post radiation and chemotherapy. He is currently being evaluated to restart 3 days of chemotherapy in the a.m. discussed with his oncology team who is planning a.m. chemotherapy regimen. Discussed getting his EGD with dilation done first thing in the morning. Dysphasia history and onset approximately 3 months ago affecting swallowing with solids, liquids, and medications.. The patient is eating but is taking very small bites chewing and maneuvering his esophagus to swallow his food. No known EGD in the past and colonoscopy? Approximately 6 months ago but unknown findings or follow-up. Patient is currently a poor historian due to his history. No family history of colon cancer. Patient's swallow issues and dysphasia are probably related to previous radiation treatments. Current labs include WBC count 12.1, hemoglobin 9.6, PT/INR 1.2, bilirubin and LFTs are normal. EGD procedure explained to patient and patient agrees. 04/19/2018 patient is now in room 234 and received an day 1 of his chemotherapy patient still has some symptoms of dysphasia but is being very cautious to chew his food slowly and to have small bites. No nausea no vomiting but decreased appetite noted. Hemoglobin 9.8, PT/INR 1.2, WBC count 12.5. Initially discussed with patient having EGD with dilation but patient is set up for chemotherapy for the next 3 days. Plan is to do EGD a.m. pending no complications. No obvious bleeding noted 04/20/2018 current hemoglobin 9.6 no obvious bleeding noted. Chief complaint is patient is weak and fatigue has completed his second dose of chemotherapy today. Still has 1 more dose which should be completed around noon tomorrow. Patient is noting more weakness and fatigue today and is considering any GI procedures to be done Wednesday. Discussed with nurse options, and will for now tentatively plan EGD with dilatation Wednesday a.m. will need to evaluate patient for his stability within 24 hours of the procedure. Plan Diet as tolerated today with swallow precautions. Consider EGD Wednesday a.m. with dilation after chemotherapy 3 days, Supportive care PPI Monitor labs Patient was seen per myself and Dr. Mike, note was written on his behalf <Yessenia Fox - Last Filed: 04/20/18 17:09> - Attending Attestation As above, will plan EGD once cleared by oncology. Will follow up with you. <Ashok Mike - Last Filed: 04/21/18 07:05>
[2018-04-20] MEDS: Azithromycin Inj 500 MG in Sodium Chlor 0.9% Inj 250 ML IV.SIG SCH (20:59)
[2018-04-21] MEDS: Morphine Sulfate 100 MG SR Tablet PO SCH ×3 (06:10→22:03)
[2018-04-21 07:11] LABS: Hematocrit 30.5 % (39.0-51.0); Hemoglobin 9.6 gm/dL (13.0-17.0); Mean Corpuscular HGB Conc 31.4 % (32.0-36.0); Mean Corpuscular Hemoglobin 26.4 pg (27.0-34.0); Mean Corpuscular Volume 84.1 fL (80.0-100.0); Platelet Count 411 th/mm3 (150-450); Red Blood Count 3.62 mil/mm3 (4.50-5.90); Red Cell Distribution Width 21.1 % (11.6-17.2); White Blood Count 19.2 th/mm3 (4.0-11.0)
[2018-04-21 07:12] LABS: Baso # (Auto) 0.1 th/mm3 (0.0-0.2); Baso % (Auto) 0.3 % (0.0-2.0); Eos % (Auto) 0.1 % (0.0-4.0); Lymph # (Auto) 1.4 th/mm3 (1.0-4.8); Lymph % (Auto) 7.3 % (9.0-44.0); Mean Platelet Volume 8.3 fL (7.0-11.0); Mono # (Auto) 0.9 th/mm3 (0.0-0.9); Mono % (Auto) 4.8 % (0.0-8.0); Neut # (Auto) 16.8 th/mm3 (1.8-7.7); Neut % (Auto) 87.5 % (16.0-70.0)
[2018-04-21 07:35] LABS: Albumin 2.3 g/dL (3.4-5.0); Anion Gap 7 meq/L (5-15); Aspartate Aminotransferase 38 U/L (15-37); Blood Urea Nitrogen 24 mg/dL (7-18); Calcium 8.9 mg/dL (8.5-10.1); Carbon Dioxide 29.7 meq/L (21.0-32.0); Chloride 100 meq/L (98-107); Glomerular Filtration Rate Greater Than 89 mL/min (>89); Glucose,Random 95 mg/dL (74-106); Potassium 5.1 meq/L (3.5-5.1); Sodium 137 meq/L (136-145)
[2018-04-21 07:37] LABS: Alanine Aminotransferase 48 U/L (12-78)
[2018-04-21 07:38] LABS: Alkaline Phosphatase 214 U/L (45-117); Total Protein 7.3 g/dL (6.4-8.2)
[2018-04-21] MEDS: Amiodarone 200 MG Tablet PO SCH (08:19)
[2018-04-21] MEDS: Senna/Docusate Sodium 8.6/50 MG Tablet PO SCH ×2 (08:19→20:24)
[2018-04-21] MEDS: Metoprolol Tartrate 50 MG Tablet PO SCH ×2 (08:19→20:23)
--- NOTE | 2018-04-21 11:37 | P.PNONC ---
Subjective Interval history: Afebrile, tolerating chemotherapy well. Reports generalized fatigue. Objective Vital Signs/Intake & Output: Vital Signs 04/20/18 12:00 04/20/18 16:00 04/20/18 19:45 Temperature 97.4 F L 97.4 F L Pulse Rate 113 H 96 H 113 H Respiratory Rate 22 20 18 Blood Pressure 103/73 110/78 Pulse Oximetry 99 98 99 04/20/18 20:50 04/20/18 22:39 04/21/18 00:00 Temperature 97.6 F 97.6 F Pulse Rate 98 H 101 H Respiratory Rate 18 16 18 Blood Pressure 90/63 L 97/71 L Pulse Oximetry 97 98 04/21/18 02:11 04/21/18 04:00 04/21/18 04:56 Temperature 97.9 F Pulse Rate 90 Respiratory Rate 15 16 Blood Pressure 115/84 Pulse Oximetry 99 98 04/21/18 06:40 04/21/18 08:06 04/21/18 08:26 Temperature 97.6 F Pulse Rate 96 H Respiratory Rate 15 18 Blood Pressure 128/90 Pulse Oximetry 100 100 04/21/18 08:40 04/21/18 11:10 Temperature 97.6 F Pulse Rate 94 H 80 Respiratory Rate 16 18 Blood Pressure 107/74 Pulse Oximetry 99 100 Intake & Output 04/20/18 04/21/18 04/21/18 18:59 06:59 18:59 Intake Total 1020.65 / 1020.65 830 / 830 100 / 100 Balance 1020.65 / 1020.65 830 / 830 100 / 100 Weight 55.8 kg Intake: IV 660.65 / 660.65 350 / 350 100 / 100 Azithromycin Inj 500 MG In NS 250 / 250 Inj 250 ML @ 250 mls/hr IV.SIG Q24H [facility] Rx#:[id number] Maxipime Inj 1,000 MG In NS Inj 100 / 100 100 ML @ 200 mls/hr IV.SIG Q12H [facility] Rx#:[id number] Decadron Inj 10 MG In NS Inj 50 52.5 / 52.5 ML @ 210 mls/hr IV.SIG Q24H [facility] Rx#:[id number] Vepesid Inj 163 MG In NS Inj 508.15 / 508.15 500 ML @ 508.15 mls/hr IV.SIG Q24H [facility] Rx#:[id number] NS Inj 250 ML @ KVO IV.SIG 100 / 100 DAILY@1130 [facility] Rx#:[id number] Rocephin Inj 1,000 MG In NS Inj 100 / 100 100 ML @ 200 mls/hr IV.SIG Q24H [facility] Rx#:[id number] Oral 360 / 360 480 / 480 Other: # Voids 5 2 Date of Last Bowel Movement 04/20/18 04/20/18 04/20/18 # Bowel Movements 1 Result Diagrams: 04/21/18 05:00 04/21/18 05:00 Laboratory Results: Laboratory Results - last 24 hr 04/21/18 04/21/18 05:00 05:00 WBC 19.2 H RBC 3.62 L Hgb 9.6 L Hct 30.5 L MCV 84.1 MCH 26.4 L MCHC 31.4 L RDW 21.1 H Plt Count 411 MPV 8.3 Neut % (Auto) 87.5 H Lymph % (Auto) 7.3 L [place] % (Auto) 4.8 Eos % (Auto) 0.1 Baso % (Auto) 0.3 Neut # (Auto) 16.8 H Lymph # (Auto) 1.4 [place] # (Auto) 0.9 Eos # (Auto) 0.0 Baso # (Auto) 0.1 WBC Differential . Differential Comment Auto diff final Sodium 137 Potassium 5.1 Chloride 100 Carbon Dioxide 29.7 Anion Gap 7 BUN 24 H Creatinine 0.76 Estimated GFR Greater than 89 Random Glucose 95 Calcium 8.9 Total Bilirubin 0.2 AST 38 H ALT 48 Alkaline Phosphatase 214 H Total Protein 7.3 Albumin 2.3 L Culture Results: Microbiology 04/16/18 19:40 Aerobic Blood Culture - Final Blood - Peripheral No growth in 5 days Anaerobic Blood Culture - Final No growth in 5 days 04/18/18 12:10 Gram Stain - Final Sputum - Expectorated Sputum Sputum Culture - Final Heavy growth normal respiratory gallo 04/17/18 17:30 Streptococcus pneumoniae Antigen (M - Final Urine - Clean Catch Urine POS S. pneumoniae antigen 04/17/18 17:30 Legionella Antigen - Final Urine - Clean Catch Urine Presumptive negative for Legionella pneumophila serogroup 1 antigen in urine, suggesting no recent or recurrent infection. Infection due to Legionella cannot be ruled out since other serogroups and species may cause disease, antigen may not be present in urine in early infection, and the level of antigen present in the urine may be below the detection limit of the test. Medications: Active Medications Generic Name Dose Route Start Last Admin Trade Name Freq PRN Reason Stop Dose Admin Albuterol 1 ampul 04/17/18 14:00 04/21/18 08:40 Duoneb Neb (Flower) NEB 1 ampul Q6HR WHILE AWAKE NEB [facility] Administration Amiodarone HCl 400 mg 04/17/18 09:00 04/21/18 08:19 Cordarone PO 400 mg DAILY [facility] Administration Aspirin 81 mg 04/17/18 09:00 04/21/18 08:19 Ecotrin PO 81 mg DAILY [facility] Administration Clonidine HCl 0.1 mg 04/17/18 09:00 04/21/18 08:19 Catapres PO 0.1 mg Q12HR FLOWER Administration Heparin Sodium (Porcine) 250 unit 04/18/18 11:23 04/20/18 05:15 Heparin Central Flush IV.FLUSH 250 unit UNSCH PRN Administration Flush Infusapot Azithromycin 500 mg/ Sodium 250 mls @ 250 mls/hr 04/17/18 21:00 04/20/18 21: 59 Chloride IV.SIG Infused Q24H [facility] Infusion Dexamethasone Sodium Phosphate 55 mls @ 220 mls/hr 04/19/18 11:30 04/19/18 10 :50 20 mg/ Sodium Chloride IV.SIG Infused ONCE [facility]OWER Infusion Dexamethasone Sodium Phosphate 52.5 mls @ 210 mls/hr 04/20/18 11:30 04/20/18 12:47 10 mg/ Sodium Chloride IV.SIG 04/21/18 11:44 Infused Q24H [facility] Infusion Etoposide 163 mg/ Sodium 508.15 mls @ 508.15 mls/hr 04/19/18 12:30 04/20/18 14:18 Chloride IV.SIG 04/21/18 13:29 Infused Q24H [facility] Infusion Ceftriaxone Sodium 1,000 mg/ 100 mls @ 200 mls/hr 04/21/18 08:00 04/21/18 08: 50 Sodium Chloride IV.SIG Infused Q24H [facility] Infusion Metoprolol Tartrate 50 mg 04/18/18 09:00 04/21/18 08:19 Lopressor PO 50 mg BID [facility] Administration Morphine Sulfate 100 mg 04/16/18 22:00 04/21/18 06:10 Oramorph Sr PO 100 mg Q8HR [facility] Administration Oxycodone HCl 30 mg 04/16/18 21:30 04/21/18 11:12 Roxicodone PO 30 mg Q4H PRN Administration PAIN SCALE 3 TO 5 Senna/Docusate Sodium 1 tab 04/17/18 09:00 04/21/18 08:19 Heather-Colace PO 1 tab BID [facility] Administration Objective Remarks: GENERAL: Chronically ill-appearing elderly male patient, ambulating in room, in no acute distress. SKIN: Warm and dry. HEAD: Normocephalic. EYES: No scleral icterus. No injection or drainage. NECK: Supple, trachea midline. CARDIOVASCULAR: Regular rate and rhythm without murmurs. RESPIRATORY: Posterior breath sounds with expiratory wheezes throughout, right base diminished. Non-labored, on RA. GASTROINTESTINAL: Abdomen soft, non-tender, nondistended. EXTREMITIES: No cyanosis or edema. MUSCULOSKELETAL: Adequate muscle tone. NEUROLOGICAL: No obvious focal deficit. Awake, alert, and oriented x3. Assessment/Plan - Plan 62-year-old male with history of metastatic small cell lung cancer admitted with chest pain and shortness of breath. He received his first cycle of carbo and NUCLEAR MEDICINE OFFICER-16 in late February. He has also seen Dr. 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 Plan for stereotactic radiation. Unfortunately he had difficulty with getting his second cycle outpatient and returned to the emergency room after he also ran out of his pain medications. 1. Chemotherapy with carbo/ NUCLEAR MEDICINE OFFICER-16. Tolerating well, patient to receive last dose today. 2. Swallowing difficulties, awaiting esophageal stretching. Patient is cleared from an oncology standpoint for EGD tomorrow. 3. Continue supportive care - Attending Statement The exam, history, and the medical decision-making described in the above note were completed with the assistance of the mid-level provider. I reviewed and agree with the findings presented. I attest that I had a [id number] encounter with the patient on the same day, and personally performed and documented my assessment and findings in the medical record. Patient still has chest wall pain but slightly better. His shortness of breath has improved. Is tolerating chemotherapy well. He will proceed with day 3 of etoposide today.
[2018-04-21] MEDS: Granisetron 1 MG/ML Vial IV.PUSH SCH (12:01)
[2018-04-21] MEDS: Dexamethasone Inj 10 MG in Sodium Chlor 0.9% Inj 50 ML IV.SIG SCH (12:01)
[2018-04-21] MEDS: Sodium Chlor 0.9% Inj 250 ML IV.SIG SCH (12:02)
--- NOTE | 2018-04-21 12:12 | P.PN ---
Subjective Interval history: up on chair no pain looking forward to EGD- tomorrow- with persistent swallowing difficulties Physical Exam Vital signs: Vital Signs 04/20/18 16:00 04/20/18 19:45 04/20/18 20:50 Temperature 97.4 F L 97.6 F Pulse Rate 96 H 113 H 98 H Respiratory Rate 20 18 18 Blood Pressure 110/78 90/63 L Pulse Oximetry 98 99 97 04/20/18 22:39 04/21/18 00:00 04/21/18 02:11 Temperature 97.6 F Pulse Rate 101 H Respiratory Rate 16 18 15 Blood Pressure 97/71 L Pulse Oximetry 98 04/21/18 04:00 04/21/18 04:56 04/21/18 06:40 Temperature 97.9 F Pulse Rate 90 Respiratory Rate 16 15 Blood Pressure 115/84 Pulse Oximetry 99 98 04/21/18 08:06 04/21/18 08:26 04/21/18 08:40 Temperature 97.6 F Pulse Rate 96 H 94 H Respiratory Rate 18 16 Blood Pressure 128/90 Pulse Oximetry 100 100 99 04/21/18 11:10 Temperature 97.6 F Pulse Rate 80 Respiratory Rate 18 Blood Pressure 107/74 Pulse Oximetry 100 Intake & Output 04/20/18 04/21/18 04/21/18 18:59 06:59 18:59 Intake Total 1020.65 / 1020.65 830 / 830 100 / 100 Balance 1020.65 / 1020.65 830 / 830 100 / 100 Weight 55.8 kg Intake: IV 660.65 / 660.65 350 / 350 100 / 100 Azithromycin Inj 500 MG In NS 250 / 250 Inj 250 ML @ 250 mls/hr IV.SIG Q24H [facility] Rx#:[id number] Maxipime Inj 1,000 MG In NS Inj 100 / 100 100 ML @ 200 mls/hr IV.SIG Q12H [facility] Rx#:[id number] Decadron Inj 10 MG In NS Inj 50 52.5 / 52.5 ML @ 210 mls/hr IV.SIG Q24H [facility] Rx#:[id number] Vepesid Inj 163 MG In NS Inj 508.15 / 508.15 500 ML @ 508.15 mls/hr IV.SIG Q24H [facility] Rx#:[id number] NS Inj 250 ML @ KVO IV.SIG 100 / 100 DAILY@1130 [facility] Rx#:[id number] Rocephin Inj 1,000 MG In NS Inj 100 / 100 100 ML @ 200 mls/hr IV.SIG Q24H [facility] Rx#:[id number] Oral 360 / 360 480 / 480 Other: # Voids 5 2 Date of Last Bowel Movement 04/20/18 04/20/18 04/20/18 # Bowel Movements 1 Narrative: GENERAL: Well-developed, cachectic, in no acute distress. alert and oriented x 3 HEENT: Head is normocephalic without any lesions or masses noted. . Eyes: Extraocular muscles are intact. Conjunctivae were clear. NECK: Supple without any masses. Trachea midline no deviation. No JVD, CARDIAC: irregular rhythm, regular rate. S1/S2 are heard. No murmurs gallops or rubs. LUNGS: Diminished breath sounds noted in the right lower lung bush no wheeze, rhonchi or rales. No use of accessory muscles on inspiration or expiration. ABDOMEN: Soft, nontender. Nondistended. Bowel sounds heard in all 4 quadrants. No organomegaly or masses. Negative rebound, negative guarding EXTREMITIES: trace pretibial edema, pulses are equal bilaterally. No cyanosis or clubbing NEUROLOGY: Mood and affect appear appropriate. Cranial nerves II through XII grossly intact. Moving all extremities, speech is clear Results - Labs CBC & Chem 7: 04/22/18 04:15 04/22/18 04:15 Laboratory Results - last 24 hr 04/21/18 04/21/18 05:00 05:00 WBC 19.2 H RBC 3.62 L Hgb 9.6 L Hct 30.5 L MCV 84.1 MCH 26.4 L MCHC 31.4 L RDW 21.1 H Plt Count 411 MPV 8.3 Neut % (Auto) 87.5 H Lymph % (Auto) 7.3 L [place] % (Auto) 4.8 Eos % (Auto) 0.1 Baso % (Auto) 0.3 Neut # (Auto) 16.8 H Lymph # (Auto) 1.4 [place] # (Auto) 0.9 Eos # (Auto) 0.0 Baso # (Auto) 0.1 WBC Differential . Differential Comment Auto diff final Sodium 137 Potassium 5.1 Chloride 100 Carbon Dioxide 29.7 Anion Gap 7 BUN 24 H Creatinine 0.76 Estimated GFR Greater than 89 Random Glucose 95 Calcium 8.9 Total Bilirubin 0.2 AST 38 H ALT 48 Alkaline Phosphatase 214 H Total Protein 7.3 Albumin 2.3 L Microbiology 04/16/18 19:40 Blood - Peripheral Aerobic Blood Culture - Final No growth in 5 days 04/16/18 19:40 Blood - Peripheral Anaerobic Blood Culture - Final No growth in 5 days 04/18/18 12:10 Sputum - Expectorated Sputum Gram Stain - Final 04/18/18 12:10 Sputum - Expectorated Sputum Sputum Culture - Final Heavy growth normal respiratory gallo Assessment and Plan - Assessment (1) SIRS (systemic inflammatory response syndrome) Code(s): R65.10 - Systemic inflammatory response syndrome (SIRS) of non- infectious origin without acute organ dysfunction Status: Acute (2) PNA (pneumonia) Code(s): J18.9 - Pneumonia, unspecified organism Status: Acute (3) Lung cancer Code(s): C34.90 - Malignant neoplasm of unspecified part of unspecified bronchus or lung Status: Acute (4) Intractable pain Code(s): R52 - Pain, unspecified Status: Acute - Plan Sepsis, resolved -Patient did meet criteria on admission with leukocytosis, tachycardia, -Chest x-ray did not indicate any infiltrate or source of infection -Urinalysis was unremarkable -Blood cultures remain negative -Strep pneumonia antigen was positive -Sputum culture - normal growth Strep pneumonia antigen positive -On cefepime - changed to Rocephin for total 10 days - continue on Zithromax Chronic obstructive pulmonary disease with possible exacerbation -Clinical symptoms of cough, productive sputum, SOB -History of smoking -IV abx as above -Continue scheduled Duonebs while awake -Tessalon Perles for cough Atrial fibrillation, could be chronic -Original EKG showing irregular, irregular heart rate which could be age fibrillation/atrial flutter -Patient was on telemetry, however too much interference and baseline abnormality unable to determine if any episodes of recurrent atrial fibrillation -Home medication amiodarone, metoprolol continued -Patient is on aspirin for anticoagulation, CHADS2 score 1 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
[2018-04-21] MEDS: SODIUM CHLOR 0.9% IV.SIG SCH (12:34)
[2018-04-21] MEDS: ETOPOSIDE IV.SIG SCH (12:34)
[2018-04-21] MEDS: Azithromycin Inj 500 MG in Sodium Chlor 0.9% Inj 250 ML IV.SIG SCH (20:24)
[2018-04-22 05:25] LABS: Baso % (Auto) 0.2 % (0.0-2.0); Hematocrit 29.9 % (39.0-51.0); Hemoglobin 9.5 gm/dL (13.0-17.0); Lymph # (Auto) 1.2 th/mm3 (1.0-4.8); Lymph % (Auto) 9.1 % (9.0-44.0); Mean Corpuscular HGB Conc 31.9 % (32.0-36.0); Mean Corpuscular Hemoglobin 26.8 pg (27.0-34.0); Mean Corpuscular Volume 84.1 fL (80.0-100.0); Mean Platelet Volume 7.9 fL (7.0-11.0); Mono # (Auto) 0.3 th/mm3 (0.0-0.9); Mono % (Auto) 2.5 % (0.0-8.0); Neut # (Auto) 11.3 th/mm3 (1.8-7.7); Neut % (Auto) 88.2 % (16.0-70.0); Platelet Count 392 th/mm3 (150-450); Red Blood Count 3.55 mil/mm3 (4.50-5.90); Red Cell Distribution Width 20.9 % (11.6-17.2); White Blood Count 12.8 th/mm3 (4.0-11.0)
[2018-04-22 05:31] LABS: INR 1.1 Ratio; Prothrombin Time 10.7 sec (9.8-11.6)
[2018-04-22] MEDS: Morphine Sulfate 100 MG SR Tablet PO SCH ×3 (05:36→21:47)
[2018-04-22 05:44] LABS: Albumin 2.1 g/dL (3.4-5.0); Anion Gap 8 meq/L (5-15); Blood Urea Nitrogen 26 mg/dL (7-18); Calcium 8.5 mg/dL (8.5-10.1); Carbon Dioxide 30.4 meq/L (21.0-32.0); Chloride 101 meq/L (98-107); Glomerular Filtration Rate Greater Than 89 mL/min (>89); Glucose,Random 100 mg/dL (74-106); Potassium 4.9 meq/L (3.5-5.1); Sodium 139 meq/L (136-145)
[2018-04-22 05:49] LABS: Alanine Aminotransferase 39 U/L (12-78); Alkaline Phosphatase 168 U/L (45-117); Aspartate Aminotransferase 30 U/L (15-37); Total Protein 6.8 g/dL (6.4-8.2)
--- NOTE | 2018-04-22 07:38 | P.PN ---
Subjective Interval history: up and ambulating- no complains of shortness of breath minimal cough, minimal sputum- whitish swallowing difficulty with both liquids and solids- feeling stuck in throat and sternum no diarrhea Physical Exam Vital signs: Vital Signs 04/21/18 08:06 04/21/18 08:26 04/21/18 08:40 Temperature 97.6 F Pulse Rate 96 H 94 H Respiratory Rate 18 16 Blood Pressure 128/90 Pulse Oximetry 100 100 99 04/21/18 11:10 04/21/18 13:34 04/21/18 15:18 Temperature 97.6 F 97.4 F L Pulse Rate 80 81 84 Respiratory Rate 18 18 Blood Pressure 107/74 96/69 L Pulse Oximetry 100 98 04/21/18 20:00 04/22/18 00:00 04/22/18 04:00 Temperature 97.6 F 97.6 F 97.5 F L Pulse Rate 85 83 86 Respiratory Rate 18 Blood Pressure 111/81 101/68 129/93 H Pulse Oximetry 100 99 99 Intake & Output 04/21/18 04/22/18 04/22/18 18:59 06:59 18:59 Intake Total 3060.65 / 3060.65 590 / 590 Balance 3060.65 / 3060.65 590 / 590 Weight 57.2 kg Intake: IV 660.65 / 660.65 350 / 350 Azithromycin Inj 500 MG In NS 250 / 250 Inj 250 ML @ 250 mls/hr IV.SIG Q24H [facility] Rx#:[id number] Decadron Inj 10 MG In NS Inj 50 52.5 / 52.5 ML @ 210 mls/hr IV.SIG Q24H S[facility] Rx#:[id number] Vepesid Inj 163 MG In NS Inj 508.15 / 508.15 500 ML @ 508.15 mls/hr IV.SIG Q24H S[facility] Rx#:[id number] Rocephin Inj 1,000 MG In NS Inj 100 / 100 100 ML @ 200 mls/hr IV.SIG Q24H S[facility] Rx#:[id number] Oral 2400 / 2400 240 / 240 Other: # Voids 6 2 Date of Last Bowel Movement 04/21/18 04/22/18 # Bowel Movements 1 1 Narrative: GENERAL: , in no acute distress. alert and oriented x 3 HEENT: Head is normocephalic Eyes: Extraocular muscles are intact. Conjunctivae were clear. NECK: Supple without any masses. Trachea midline no deviation. No JVD, CARDIAC: irregular rhythm, regular rate. S1/S2 are heard. No murmurs gallops or rubs. LUNGS: Diminished breath sounds noted in the right lower lung bush no wheeze, rhonchi or rales. No use of accessory muscles on inspiration or expiration. ABDOMEN: Soft, nontender. Nondistended. Bowel sounds heard in all 4 quadrants. No organomegaly or masses. Negative rebound, negative guarding EXTREMITIES: no edema, pulses are equal bilaterally. No cyanosis or clubbing NEUROLOGY: Mood and affect appear appropriate. Cranial nerves II through XII grossly intact. Moving all extremities, speech is clear gait steady Results - Labs CBC & Chem 7: 04/22/18 04:15 04/22/18 04:15 Laboratory Results - last 24 hr 04/21/18 04/22/18 04/22/18 05:00 04:15 04:15 WBC 12.8 H RBC 3.55 L Hgb 9.5 L Hct 29.9 L MCV 84.1 MCH 26.8 L MCHC 31.9 L RDW 20.9 H Plt Count 392 MPV 7.9 Neut % (Auto) 88.2 H Lymph % (Auto) 9.1 [place] % (Auto) 2.5 Eos % (Auto) 0.0 Baso % (Auto) 0.2 Neut # (Auto) 11.3 H Lymph # (Auto) 1.2 [place] # (Auto) 0.3 Eos # (Auto) 0.0 Baso # (Auto) 0.0 WBC Differential . Differential Comment Auto diff final PT 10.7 INR 1.1 Sodium 137 Potassium 5.1 Chloride 100 Carbon Dioxide 29.7 Anion Gap 7 BUN 24 H Creatinine 0.76 Estimated GFR Greater than 89 Random Glucose 95 Calcium 8.9 Total Bilirubin 0.2 AST 38 H ALT 48 Alkaline Phosphatase 214 H Total Protein 7.3 Albumin 2.3 L 04/22/18 04:15 WBC RBC Hgb Hct MCV MCH MCHC RDW Plt Count MPV Neut % (Auto) Lymph % (Auto) [place] % (Auto) Eos % (Auto) Baso % (Auto) Neut # (Auto) Lymph # (Auto) [place] # (Auto) Eos # (Auto) Baso # (Auto) WBC Differential Differential Comment PT INR Sodium 139 Potassium 4.9 Chloride 101 Carbon Dioxide 30.4 Anion Gap 8 BUN 26 H Creatinine 0.67 Estimated GFR Greater than 89 Random Glucose 100 Calcium 8.5 Total Bilirubin 0.2 AST 30 ALT 39 Alkaline Phosphatase 168 H Total Protein 6.8 Albumin 2.1 L Microbiology 04/16/18 19:40 Blood - Peripheral Aerobic Blood Culture - Final No growth in 5 days 04/16/18 19:40 Blood - Peripheral Anaerobic Blood Culture - Final No growth in 5 days Assessment and Plan - Assessment (1) SIRS (systemic inflammatory response syndrome) Code(s): R65.10 - Systemic inflammatory response syndrome (SIRS) of non- infectious origin without acute organ dysfunction Status: Acute (2) PNA (pneumonia) Code(s): J18.9 - Pneumonia, unspecified organism Status: Acute (3) Lung cancer Code(s): C34.90 - Malignant neoplasm of unspecified part of unspecified bronchus or lung Status: Acute (4) Intractable pain Code(s): R52 - Pain, unspecified Status: Acute - Plan Sepsis, resolved -Patient did meet criteria on admission with leukocytosis, tachycardia, -Chest x-ray did not indicate any infiltrate or source of infection -Urinalysis was unremarkable -Blood cultures remain negative -Strep pneumonia antigen was positive -Sputum culture - normal growth Strep pneumonia antigen positive -On cefepime - changed to Rocephin 04/21 - consider switched to po antibiotics- when ready for DC complete 10 days - continue on Zithromax Chronic obstructive pulmonary disease with possible exacerbation- improved -History of smoking -IV abx as above -Continue scheduled Duonebs while awake -Bisi Ray for cough Atrial fibrillation, could be chronic- rate controlled -Original EKG showing irregular, irregular heart rate which could be age fibrillation/atrial flutter -Patient was on telemetry, however too much interference and baseline abnormality unable to determine if any episodes of recurrent atrial fibrillation -Home medication amiodarone, metoprolol continued -Patient is on aspirin for anticoagulation, CHADS2 score 1 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
[2018-04-22] MEDS: Metoprolol Tartrate 50 MG Tablet PO SCH ×2 (08:00→21:49)
--- NOTE | 2018-04-22 10:46 | GIPROC ---
[facility] [address] [facility] [place], [address] EGD PROCEDURE REPORT EXAM DATE: 04/22/2018 PATIENT NAME: Lorenzo Mendez MR #: [id number] BIRTHDATE: 1955 ATTENDING: Ashok Mike MD ORDER #: [id number] VEHICLE MAINTENANCE SUPERVISOR: Kathi Dobbs Faria, Juan, Power, Victoria, and Siena Boyd STATUS: inpatient INDICATIONS: The patient is a 62 yr old male here for an EGD due to dysphagia PROCEDURE PERFORMED: EGD w/ biopsy MEDICATIONS: None and Per Anesthesia. TOPICAL ANESTHETIC: none CONSENT: The patient understands the risks and benefits of the procedure and understands that these risks include, but are not limited to: sedation, allergic reaction, infection, perforation and/or bleeding. Alternative means of evaluation and treatment include, among others: physical exam, x-rays, and/or surgical intervention. The patient elects to proceed with this endoscopic procedure. medical equipment was checked for proper function. Hand hygiene and appropriate measures for infection prevention was taken. After the risks, benefits and alternatives of the procedure were thoroughly explained, Informed consent was verified, confirmed and timeout was successfully executed by the treatment team. The patient was anesthetized with topical anesthesia and the Pentax [id number] endoscope was introduced through the mouth and advanced to the second portion of the duodenum. Retroflexion was performed and was normal The gastroscope was then slowly withdrawn and removed. ESOPHAGUS: White exudates consistent with candidiasis were found in the entire esophagus. STOMACH: A small erosion was found at the pylorus. A biopsy was performed using cold forceps. Sample sent for histology. DUODENUM: The duodenal mucosa appeared normal in the ampulla and 2nd part duodenum. ADVERSE EVENTS: There were no complications. IMPRESSIONS: 1. White exudates consistent with candidiasis in the entire esophagus, biopsy take. 2. Small erosion was found at the pylorus; biopsy was performed 3. Normal duodenal mucosa in the ampulla and 2nd part duodenum 4. Retroflexion was performed and was normal , significant amount of bile seen in te stomach suggestive of bile reflu. RECOMMENDATIONS: 1. Continue PPI 2. Await biopsy results. Biopsy results will not be ready for 7-10 days. If you don't hear from us in two weeks, call our office for biopsy results. PATIENT CONDITION: stable DISPOSITION: Observation REPEAT EXAM: NONE Ashok Mike MD eSigned: Ashok Mike MD 04/22/2018 10:45 AM cc: PATIENT NAME: Lorenzo Mendez MR#: [id number]
[2018-04-22] MEDS: Senna/Docusate Sodium 8.6/50 MG Tablet PO SCH ×2 (10:59→20:19)
[2018-04-22] MEDS: Amiodarone 200 MG Tablet PO SCH (10:59)
--- NOTE | 2018-04-22 13:51 | P.PNONC ---
Subjective Interval history: Afebrile, status post EGD today. Patient states "they did not stretch it out because I had some sort of infection that is causing my difficulty swallowing." Patient with no complaints at this time. He is asking if he can ambulate in the hallways. Objective Vital Signs/Intake & Output: Vital Signs 04/21/18 15:18 04/21/18 20:00 04/22/18 00:00 Temperature 97.4 F L 97.6 F 97.6 F Pulse Rate 84 85 83 Respiratory Rate 18 18 18 Blood Pressure 96/69 L 111/81 101/68 Pulse Oximetry 98 100 99 04/22/18 04:00 04/22/18 07:44 04/22/18 10:56 Temperature 97.5 F L 97.4 F L 97.5 F L Pulse Rate 86 100 H 87 Respiratory Rate 18 18 Blood Pressure 129/93 H 132/93 H 109/76 Pulse Oximetry 99 97 99 04/22/18 11:45 Temperature Pulse Rate Respiratory Rate Blood Pressure Pulse Oximetry 97 Intake & Output 04/21/18 04/22/18 04/22/18 18:59 06:59 18:59 Intake Total 3060.65 / 3060.65 590 / 590 115 / 115 Balance 3060.65 / 3060.65 590 / 590 115 / 115 Weight 57.2 kg Intake: IV 660.65 / 660.65 350 / 350 115 / 115 Azithromycin Inj 500 MG In NS 250 / 250 Inj 250 ML @ 250 mls/hr IV.SIG Q24H SUSIE Rx#:[id number] Decadron Inj 10 MG In NS Inj 50 52.5 / 52.5 ML @ 210 mls/hr IV.SIG Q24H SUSIE Rx#:[id number] Vepesid Inj 163 MG In NS Inj 508.15 / 508.15 500 ML @ 508.15 mls/hr IV.SIG Q24H SUSIE Rx#:[id number] Rocephin Inj 1,000 MG In NS Inj 100 / 100 100 / 100 100 ML @ 200 mls/hr IV.SIG Q24H SUSIE Rx#:[id number] Oral 2400 / 2400 240 / 240 Other: # Voids 6 2 Date of Last Bowel Movement 04/21/18 04/22/18 04/21/18 # Bowel Movements 1 1 Result Diagrams: 04/22/18 04:15 04/22/18 04:15 Laboratory Results: Laboratory Results - last 24 hr 04/22/18 04/22/18 04/22/18 04:15 04:15 04:15 WBC 12.8 H RBC 3.55 L Hgb 9.5 L Hct 29.9 L MCV 84.1 MCH 26.8 L MCHC 31.9 L RDW 20.9 H Plt Count 392 MPV 7.9 Neut % (Auto) 88.2 H Lymph % (Auto) 9.1 [place] % (Auto) 2.5 Eos % (Auto) 0.0 Baso % (Auto) 0.2 Neut # (Auto) 11.3 H Lymph # (Auto) 1.2 [place] # (Auto) 0.3 Eos # (Auto) 0.0 Baso # (Auto) 0.0 WBC Differential . Differential Comment Auto diff final PT 10.7 INR 1.1 Sodium 139 Potassium 4.9 Chloride 101 Carbon Dioxide 30.4 Anion Gap 8 BUN 26 H Creatinine 0.67 Estimated GFR Greater than 89 Random Glucose 100 Calcium 8.5 Total Bilirubin 0.2 AST 30 ALT 39 Alkaline Phosphatase 168 H Total Protein 6.8 Albumin 2.1 L Culture Results: Microbiology 04/16/18 19:40 Aerobic Blood Culture - Final Blood - Peripheral No growth in 5 days Anaerobic Blood Culture - Final No growth in 5 days 04/18/18 12:10 Gram Stain - Final Sputum - Expectorated Sputum Sputum Culture - Final Heavy growth normal respiratory gallo Medications: Active Medications Generic Name Dose Route Start Last Admin Trade Name Freq PRN Reason Stop Dose Admin Amiodarone HCl 400 mg 04/17/18 09:00 04/22/18 10:59 Cordarone PO 400 mg DAILY SUSIE Administration Aspirin 81 mg 04/17/18 09:00 04/22/18 10:59 Ecotrin PO 81 mg DAILY SUSIE Administration Clonidine HCl 0.1 mg 04/17/18 09:00 04/21/18 20:24 Catapres PO 0.1 mg Q12HR SUSIE Administration Heparin Sodium (Porcine) 250 unit 04/18/18 11:23 04/20/18 05:15 Heparin Central Flush IV.FLUSH 250 unit UNSCH PRN Administration Flush Infusapot Azithromycin 500 mg/ Sodium 250 mls @ 250 mls/hr 04/17/18 21:00 04/21/18 22: 03 Chloride IV.SIG Infused Q24H SUSIE Infusion Dexamethasone Sodium Phosphate 55 mls @ 220 mls/hr 04/19/18 11:30 04/19/18 10 :50 20 mg/ Sodium Chloride IV.SIG Infused ONCE SUSIE Infusion Ceftriaxone Sodium 1,000 mg/ 100 mls @ 200 mls/hr 04/21/18 08:00 04/22/18 11: 51 Sodium Chloride IV.SIG Infused Q24H SUSIE Infusion Metoprolol Tartrate 50 mg 04/18/18 09:00 04/22/18 08:00 Lopressor PO 50 mg BID SUSIE Administration Morphine Sulfate 100 mg 04/16/18 22:00 04/22/18 05:36 Oramorph Sr PO 100 mg Q8HR SUSIE Administration Oxycodone HCl 30 mg 04/16/18 21:30 04/22/18 10:58 Roxicodone PO 30 mg Q4H PRN Administration PAIN SCALE 3 TO 5 Senna/Docusate Sodium 1 tab 04/17/18 09:00 04/22/18 10:59 Heather-Colace PO 1 tab BID SUSIE Administration Objective Remarks: GENERAL: Chronically ill-appearing elderly male patient, lying in bed, in no acute distress. SKIN: Warm and dry. HEAD: Normocephalic. EYES: No scleral icterus. No injection or drainage. NECK: Supple, trachea midline. CARDIOVASCULAR: Regular rate and rhythm without murmurs. RESPIRATORY: Posterior breath sounds diminished throughout. Non-labored. GASTROINTESTINAL: Abdomen soft, non-tender, nondistended. EXTREMITIES: No cyanosis or edema. MUSCULOSKELETAL: Adequate muscle tone. NEUROLOGICAL: No obvious focal deficit. Awake, alert, and oriented x3. Assessment/Plan - Plan 62-year-old male with history of metastatic small cell lung cancer admitted with chest pain and shortness of breath. He received his first cycle of carbo and ELECTRONIC ASSEMBLER GROUP LEADER-16 in late February. He has also seen Dr. 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 Plan for stereotactic radiation. Unfortunately he had difficulty with getting his second cycle outpatient and returned to the emergency room after he also ran out of his pain medications. 1. Chemotherapy with carbo/ ELECTRONIC ASSEMBLER GROUP LEADER-16. Patient tolerated well. 2. Swallowing difficulties, status post EGD today. EGD findings:White exudates consistent with candidiasis in the entire esophagus, biopsied. Small erosion was found at the pylorus, biopsied. Normal duodenal mucosa in the ampulla and 2nd part duodenum. Retroflexion was performed and was normal, significant amount of bile seen in the stomach suggestive of bile reflux. Recommendations to continue PPI and await biopsy results. 3. From an oncology standpoint the patient may be discharged home. He will need to follow-up in the outpatient clinic next week. - Attending Statement The exam, history, and the medical decision-making described in the above note were completed with the assistance of the mid-level provider. I reviewed and agree with the findings presented. I attest that I had a [id number] encounter with the patient on the same day, and personally performed and documented my assessment and findings in the medical record. Patient is feeling better. He just had EGD today. Finding was as above. He is trying to eat dinner. He has completed 3 days of chemotherapy and tolerated it well. I told him to follow-up at oncology clinic to monitor CBC. He can be discharged home from oncology standpoint.
[2018-04-22] MEDS: Azithromycin Inj 500 MG in Sodium Chlor 0.9% Inj 250 ML IV.SIG SCH (20:19)
[2018-04-23] MEDS: Morphine Sulfate 100 MG SR Tablet PO SCH ×3 (06:16→22:04)
[2018-04-23] MEDS: Metoprolol Tartrate 50 MG Tablet PO SCH ×2 (09:03→20:22)
[2018-04-23] MEDS: Amiodarone 200 MG Tablet PO SCH (09:03)
[2018-04-23] MEDS: Senna/Docusate Sodium 8.6/50 MG Tablet PO SCH ×2 (09:03→20:22)
--- NOTE | 2018-04-23 09:53 | P.PNONC ---
Subjective Interval history: Afebrile. Reports he was unable to sleep last night d/t breathing problems. He reports he is now breathing much better. Denies any shortness of breath. He reports a productive cough with yellowish phlegm. Objective Vital Signs/Intake & Output: Vital Signs 04/22/18 10:56 04/22/18 11:45 04/22/18 15:20 Temperature 97.5 F L 97.5 F L Pulse Rate 87 84 Respiratory Rate 18 Blood Pressure 109/76 123/75 Pulse Oximetry 99 97 99 04/22/18 16:00 04/22/18 20:00 04/23/18 00:00 Temperature 97.8 F 97.5 F L Pulse Rate 87 78 Respiratory Rate 16 18 Blood Pressure 96/59 L 116/81 Pulse Oximetry 98 99 100 04/23/18 04:00 04/23/18 08:00 Temperature 97.4 F L 97.7 F Pulse Rate 83 72 Respiratory Rate 20 16 Blood Pressure 115/85 141/85 H Pulse Oximetry 99 100 Intake & Output 04/22/18 04/23/18 04/23/18 18:59 06:59 18:59 Intake Total 3825 / 3825 730 / 730 115 / 115 Balance 3825 / 3825 730 / 730 115 / 115 Weight 56.7 kg Intake: IV 215 / 215 250 / 250 115 / 115 Azithromycin Inj 500 MG In NS 250 / 250 Inj 250 ML @ 250 mls/hr IV.SIG Q24H SUSIE Rx#:[id number] Diflucan 200 mg Premix Bag 100 100 / 100 ML @ 100 mls/hr IV.SIG Q24H SUSIE Rx#:[id number] Rocephin Inj 1,000 MG In NS Inj 100 / 100 100 / 100 100 ML @ 200 mls/hr IV.SIG Q24H SUSIE Rx#:[id number] Oral 3610 / 3610 480 / 480 Other: # Voids 6 4 Date of Last Bowel Movement 04/22/18 04/22/18 # Bowel Movements 1 Result Diagrams: 04/22/18 04:15 04/22/18 04:15 Culture Results: Microbiology 04/16/18 19:40 Aerobic Blood Culture - Final Blood - Peripheral No growth in 5 days Anaerobic Blood Culture - Final No growth in 5 days 04/18/18 12:10 Gram Stain - Final Sputum - Expectorated Sputum Sputum Culture - Final Heavy growth normal respiratory gallo Medications: Active Medications Generic Name Dose Route Start Last Admin Trade Name Freq PRN Reason Stop Dose Admin Amiodarone HCl 400 mg 04/17/18 09:00 04/23/18 09:03 Cordarone PO 400 mg DAILY SUSIE Administration Aspirin 81 mg 04/17/18 09:00 04/23/18 09:03 Ecotrin PO 81 mg DAILY SUSIE Administration Clonidine HCl 0.1 mg 04/17/18 09:00 04/23/18 09:03 Catapres PO 0.1 mg Q12HR SUSIE Administration Heparin Sodium (Porcine) 250 unit 04/18/18 11:23 04/20/18 05:15 Heparin Central Flush IV.FLUSH 250 unit UNSCH PRN Administration Flush Infusapot Hydromorphone HCl 1 mg 04/16/18 21:04 04/23/18 02:22 Dilaudid Pf Inj IV.PUSH 1 mg Q4H PRN Administration PAIN 6-10 Azithromycin 500 mg/ Sodium 250 mls @ 250 mls/hr 04/17/18 21:00 04/22/18 21: 19 Chloride IV.SIG Infused Q24H SUSIE Infusion Dexamethasone Sodium Phosphate 55 mls @ 220 mls/hr 04/19/18 11:30 04/19/18 10 :50 20 mg/ Sodium Chloride IV.SIG Infused ONCE SUSIE Infusion Ceftriaxone Sodium 1,000 mg/ 100 mls @ 200 mls/hr 04/21/18 08:00 04/23/18 09: 47 Sodium Chloride IV.SIG Infused Q24H SUSIE Infusion Fluconazole 100 mls @ 100 mls/hr 04/22/18 14:00 04/22/18 15:23 Diflucan 200 Mg Premix Bag IV.SIG Infused Q24H SUSIE Infusion Metoprolol Tartrate 50 mg 04/18/18 09:00 04/23/18 09:03 Lopressor PO 50 mg BID SUSIE Administration Morphine Sulfate 100 mg 04/16/18 22:00 04/23/18 06:16 Oramorph Sr PO 100 mg Q8HR SUSIE Administration Oxycodone HCl 30 mg 04/16/18 21:30 04/23/18 09:03 Roxicodone PO 30 mg Q4H PRN Administration PAIN SCALE 3 TO 5 Senna/Docusate Sodium 1 tab 04/17/18 09:00 04/23/18 09:03 Heather-Colace PO 1 tab BID SUSIE Administration Objective Remarks: GENERAL: Chronically ill-appearing elderly male patient, standing at bedside, in no acute distress. SKIN: Warm and dry. HEAD: Normocephalic. EYES: No scleral icterus. No injection or drainage. NECK: Supple, trachea midline. CARDIOVASCULAR: Regular rate and rhythm without murmurs. RESPIRATORY: Posterior breath sounds diminished throughout. Non-labored. On RA. GASTROINTESTINAL: Abdomen soft, non-tender, nondistended. EXTREMITIES: No cyanosis or edema. MUSCULOSKELETAL: Adequate muscle tone. NEUROLOGICAL: No obvious focal deficit. Awake, alert, and oriented x3. Assessment/Plan - Plan 62-year-old male with history of metastatic small cell lung cancer admitted with chest pain and shortness of breath. He received his first cycle of carbo and GRAPHICS SPECIALIST-16 in late February. He has also seen Dr. 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 Plan for stereotactic radiation. Unfortunately he had difficulty with getting his second cycle outpatient and returned to the emergency room after he also ran out of his pain medications. 1. Chemotherapy with carbo/ GRAPHICS SPECIALIST-16. Patient tolerated well. 2. Swallowing difficulties, status post EGD. EGD findings:White exudates consistent with candidiasis in the entire esophagus, biopsied. Small erosion was found at the pylorus, biopsied. Normal duodenal mucosa in the ampulla and 2nd part duodenum. Retroflexion was performed and was normal, significant amount of bile seen in the stomach suggestive of bile reflux. Recommendations to continue PPI and await biopsy results. 3. Patient now on IV Diflucan for candidiasis. 4. From an oncology standpoint the patient may be discharged home. He will need to follow-up in the outpatient clinic next week. - Attending Statement The exam, history, and the medical decision-making described in the above note were completed with the assistance of the mid-level provider. I reviewed and agree with the findings presented. I attest that I had a [id number] encounter with the patient on the same day, and personally performed and documented my assessment and findings in the medical record. Metstatic small cell cancer Pneumonia/on Ceftriazone and Azithro Blood cx negative UA antigen positive for strep pneumonia EGD yesterday has thrush on IV diflucan. can be transitioned to oral Diflucan X 21 days on D/ C Carbo /GRAPHICS SPECIALIST 16 completed D/C from Oncology standpoint
--- NOTE | 2018-04-23 14:49 | P.PN ---
Subjective Interval history: d/w staff nurse- patient ate 100% but per patient- he cuts it up to small pieces and feels it takes a while to go down d/w him findings- "I know" good BM Physical Exam Vital signs: Vital Signs 04/22/18 15:20 04/22/18 16:00 04/22/18 20:00 Temperature 97.5 F L 97.8 F Pulse Rate 84 87 Respiratory Rate 18 16 Blood Pressure 123/75 96/59 L Pulse Oximetry 99 98 99 04/23/18 00:00 04/23/18 04:00 04/23/18 08:00 Temperature 97.5 F L 97.4 F L 97.7 F Pulse Rate 78 83 72 Respiratory Rate 18 20 16 Blood Pressure 116/81 115/85 141/85 H Pulse Oximetry 100 99 100 04/23/18 11:07 Temperature 97.7 F Pulse Rate 97 H Respiratory Rate 20 Blood Pressure 107/75 Pulse Oximetry 99 Intake & Output 04/22/18 04/23/18 04/23/18 18:59 06:59 18:59 Intake Total 3825 / 3825 730 / 730 215 / 215 Balance 3825 / 3825 730 / 730 215 / 215 Weight 56.7 kg Intake: IV 215 / 215 250 / 250 215 / 215 Azithromycin Inj 500 MG In NS 250 / 250 Inj 250 ML @ 250 mls/hr IV.SIG Q24H SUSIE Rx#:[id number] Diflucan 200 mg Premix Bag 100 100 / 100 100 / 100 ML @ 100 mls/hr IV.SIG Q24H SUSIE Rx#:[id number] Rocephin Inj 1,000 MG In NS Inj 100 / 100 100 / 100 100 ML @ 200 mls/hr IV.SIG Q24H SUSIE Rx#:[id number] Oral 3610 / 3610 480 / 480 Other: # Voids 6 4 Date of Last Bowel Movement 04/22/18 04/22/18 04/23/18 # Bowel Movements 1 Narrative: GENERAL: , in no acute distress. alert and oriented x 3 HEENT: Head is normocephalic Eyes: Extraocular muscles are intact. Conjunctivae were clear. NECK: Supple without any masses. Trachea midline no deviation. No JVD, CARDIAC: irregular rhythm, regular rate. S1/S2 are heard. No murmurs gallops or rubs. LUNGS: Diminished breath sounds noted in the right lower lung bush no wheeze, rhonchi or rales. No use of accessory muscles on inspiration or expiration. ABDOMEN: Soft, nontender. Nondistended. Bowel sounds heard in all 4 quadrants. No organomegaly or masses. Negative rebound, negative guarding EXTREMITIES: no edema, pulses are equal bilaterally. No cyanosis or clubbing NEUROLOGY: Mood and affect appear appropriate. Cranial nerves II through XII grossly intact. Moving all extremities, speech is clear gait steady Results - Labs CBC & Chem 7: 04/22/18 04:15 04/22/18 04:15 Assessment and Plan - Assessment (1) SIRS (systemic inflammatory response syndrome) Code(s): R65.10 - Systemic inflammatory response syndrome (SIRS) of non- infectious origin without acute organ dysfunction Status: Acute (2) PNA (pneumonia) Code(s): J18.9 - Pneumonia, unspecified organism Status: Acute (3) Lung cancer Code(s): C34.90 - Malignant neoplasm of unspecified part of unspecified bronchus or lung Status: Acute (4) Intractable pain Code(s): R52 - Pain, unspecified Status: Acute - Plan Sepsis, resolved -Patient did meet criteria on admission with leukocytosis, tachycardia, -Chest x-ray did not indicate any infiltrate or source of infection -Urinalysis was unremarkable -Blood cultures remain negative -Strep pneumonia antigen was positive -Sputum culture - normal growth Strep pneumonia antigen positive -On cefepime - changed to Rocephin 04/21 - - consider switched to po antibiotics- when ready for DC complete 10 days - continue on Zithromax - DC- completed 6 days Chronic obstructive pulmonary disease with possible exacerbation- improved -History of smoking -IV abx as above -Continue scheduled Duonebs while awake -Tessalon Perles for cough Atrial fibrillation, could be chronic- rate controlled -Original EKG showing irregular, irregular heart rate which could be age fibrillation/atrial flutter -Patient was on telemetry, however too much interference and baseline abnormality unable to determine if any episodes of recurrent atrial fibrillation -Home medication amiodarone, metoprolol continued -Patient is on aspirin for anticoagulation, CHADS2 score 1 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
[2018-04-23] MEDS: Azithromycin Inj 500 MG in Sodium Chlor 0.9% Inj 250 ML IV.SIG SCH (20:23)
[2018-04-24] MEDS: Morphine Sulfate 100 MG SR Tablet PO SCH ×3 (06:02→21:22)
[2018-04-24] MEDS: Amiodarone 200 MG Tablet PO SCH (08:53)
[2018-04-24] MEDS: Senna/Docusate Sodium 8.6/50 MG Tablet PO SCH ×2 (08:53→21:22)
[2018-04-24] MEDS: Metoprolol Tartrate 50 MG Tablet PO SCH ×2 (08:53→21:22)
[2018-04-24 10:18] LABS: Baso % (Auto) 0.6 % (0.0-2.0); Eos # (Auto) 0.3 th/mm3 (0.0-0.4); Eos % (Auto) 5.5 % (0.0-4.0); Hematocrit 32.8 % (39.0-51.0); Hemoglobin 10.4 gm/dL (13.0-17.0); Lymph # (Auto) 1.7 th/mm3 (1.0-4.8); Lymph % (Auto) 27.5 % (9.0-44.0); Mean Corpuscular HGB Conc 31.6 % (32.0-36.0); Mean Corpuscular Hemoglobin 26.5 pg (27.0-34.0); Mean Corpuscular Volume 83.8 fL (80.0-100.0); Mean Platelet Volume 7.4 fL (7.0-11.0); Mono % (Auto) 0.8 % (0.0-8.0); Neut % (Auto) 65.6 % (16.0-70.0); Platelet Count 460 th/mm3 (150-450); Red Blood Count 3.92 mil/mm3 (4.50-5.90); Red Cell Distribution Width 20.7 % (11.6-17.2)
[2018-04-24 10:42] LABS: Albumin 2.2 g/dL (3.4-5.0); Anion Gap 6 meq/L (5-15); Aspartate Aminotransferase 32 U/L (15-37); Blood Urea Nitrogen 22 mg/dL (7-18); Calcium 8.6 mg/dL (8.5-10.1); Carbon Dioxide 34.1 meq/L (21.0-32.0); Chloride 96 meq/L (98-107); Glomerular Filtration Rate Greater Than 89 mL/min (>89); Glucose,Random 90 mg/dL (74-106); Potassium 4.2 meq/L (3.5-5.1); Sodium 136 meq/L (136-145)
[2018-04-24 10:43] LABS: Alanine Aminotransferase 40 U/L (12-78)
[2018-04-24 10:45] LABS: Alkaline Phosphatase 142 U/L (45-117); Total Protein 6.7 g/dL (6.4-8.2)
--- NOTE | 2018-04-24 13:22 | P.PN ---
Subjective Interval history: afebrile overall feeling better- swallowing better- "not choking anymore" still takes a little while to swallow no diarhrea no fever, minimla sputum productin Physical Exam Vital signs: Vital Signs 04/23/18 16:00 04/23/18 20:00 04/23/18 22:34 Temperature 97.4 F L 97.8 F Pulse Rate 89 80 Respiratory Rate 18 18 16 Blood Pressure 115/77 123/81 Pulse Oximetry 100 100 04/24/18 00:21 04/24/18 00:23 04/24/18 02:54 Temperature 97.9 F Pulse Rate 73 Respiratory Rate 17 16 Blood Pressure 115/79 Pulse Oximetry 99 99 04/24/18 04:00 04/24/18 06:32 04/24/18 08:20 Temperature 97.8 F Pulse Rate 84 Respiratory Rate 18 16 Blood Pressure 123/74 Pulse Oximetry 98 98 04/24/18 12:21 Temperature Pulse Rate 84 Respiratory Rate 16 Blood Pressure Pulse Oximetry Intake & Output 04/23/18 04/24/18 04/24/18 18:59 06:59 18:59 Intake Total 215 / 215 970 / 970 100 / 100 Balance 215 / 215 970 / 970 100 / 100 Weight 54.6 kg Intake: IV 215 / 215 250 / 250 100 / 100 Azithromycin Inj 500 MG In NS 250 / 250 Inj 250 ML @ 250 mls/hr IV.SIG Q24H SUSIE Rx#:[id number] Diflucan 200 mg Premix Bag 100 100 / 100 ML @ 100 mls/hr IV.SIG Q24H SUSIE Rx#:[id number] Rocephin Inj 1,000 MG In NS Inj 100 / 100 100 / 100 100 ML @ 200 mls/hr IV.SIG Q24H SUSIE Rx#:[id number] Oral 720 / 720 Other: # Voids 7 Date of Last Bowel Movement 04/23/18 04/24/18 # Bowel Movements 1 Narrative: GENERAL: , in no acute distress. alert and oriented x 3 HEENT: Head is normocephalic Eyes: Extraocular muscles are intact. Conjunctivae were clear.no oral thrush NECK: Supple without any masses. Trachea midline no deviation. No JVD, CARDIAC: irregular rhythm, regular rate. S1/S2 are heard. No murmurs gallops or rubs. LUNGS: Diminished breath sounds noted in the right lower lung bush no wheeze, rhonchi or rales. No use of accessory muscles on inspiration or expiration. ABDOMEN: Soft, nontender. Nondistended. Bowel sounds heard in all 4 quadrants. No organomegaly or masses. Negative rebound, negative guarding EXTREMITIES: no edema, pulses are equal bilaterally. No cyanosis or clubbing NEUROLOGY: Mood and affect appear appropriate. Cranial nerves II through XII grossly intact. Moving all extremities, speech is clear gait steady Results - Labs CBC & Chem 7: 04/24/18 10:00 04/24/18 10:00 Laboratory Results - last 24 hr 04/24/18 04/24/18 10:00 10:00 WBC 6.0 RBC 3.92 L Hgb 10.4 L Hct 32.8 L MCV 83.8 MCH 26.5 L MCHC 31.6 L RDW 20.7 H Plt Count 460 H MPV 7.4 Neut % (Auto) 65.6 Lymph % (Auto) 27.5 [place] % (Auto) 0.8 Eos % (Auto) 5.5 H Baso % (Auto) 0.6 Neut # (Auto) 4.0 Lymph # (Auto) 1.7 [place] # (Auto) 0.0 Eos # (Auto) 0.3 Baso # (Auto) 0.0 WBC Differential . Differential Comment Auto diff final Sodium 136 Potassium 4.2 Chloride 96 L Carbon Dioxide 34.1 H Anion Gap 6 BUN 22 H Creatinine 0.71 Estimated GFR Greater than 89 Random Glucose 90 Calcium 8.6 Total Bilirubin 0.3 AST 32 ALT 40 Alkaline Phosphatase 142 H Total Protein 6.7 Albumin 2.2 L Assessment and Plan - Assessment (1) SIRS (systemic inflammatory response syndrome) Code(s): R65.10 - Systemic inflammatory response syndrome (SIRS) of non- infectious origin without acute organ dysfunction Status: Acute (2) PNA (pneumonia) Code(s): J18.9 - Pneumonia, unspecified organism Status: Acute (3) Lung cancer Code(s): C34.90 - Malignant neoplasm of unspecified part of unspecified bronchus or lung Status: Acute (4) Intractable pain Code(s): R52 - Pain, unspecified Status: Acute - Plan Sepsis, Strep pneumonia antigen positive -Patient did meet criteria on admission with leukocytosis, tachycardia, -Chest x-ray did not indicate any infiltrate or source of infection -Urinalysis was unremarkable -Blood cultures remain negative -Strep pneumonia antigen was positive -Sputum culture - normal growth - currently on rocephin- swtiched to po in am- WBC down -On cefepime - changed to Rocephin 04/21 - - consider switched to po antibiotics- when ready for DC complete 10 days - Zithromax - DC- completed 6 days Chronic obstructive pulmonary disease with possible exacerbation- improved -History of smoking -IV abx as above -Continue scheduled Duonebs while awake -Tessalon Perles for cough Atrial fibrillation, could be chronic- rate controlled -Original EKG showing irregular, irregular heart rate which could be age fibrillation/atrial flutter -Patient was on telemetry, however too much interference and baseline abnormality unable to determine if any episodes of recurrent atrial fibrillation -Home medication amiodarone, metoprolol continued -Patient is on aspirin for anticoagulation, CHADS2 score 1 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 -Patient status post radiation, undergoing chemotherapy -Oncology consulted who recommending chemotherapy at this time -Status post dexamethasone Intractable Pain - controlled -Continue home medications, analgesics/antiemetics as needed Shruthi Esophagitis Dysphagia- -Patient intolerant to solids and liquids -Gastroenterology ff- S/P EGD 04/22 - on IV diflucan- 04/22 - switch to po diflucan tomorrow to complete 10-14 days - tolerating current diet- he cuts in into small pieces- refused pureed diet- - start ensure bid- strawberry flavor Hypertension -Home medication was continued DVT prevention -Sequential compression devices -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
[2018-04-25] MEDS: Morphine Sulfate 100 MG SR Tablet PO SCH ×2 (05:46→13:35)
[2018-04-25 06:10] VITALS: O2SAT 100
[2018-04-25 08:49] VITALS: BP 91/55; PULSE 92; RESP 18; TEMP 98
[2018-04-25] MEDS: Senna/Docusate Sodium 8.6/50 MG Tablet PO SCH (08:51)
[2018-04-25] MEDS: Amiodarone 200 MG Tablet PO SCH (08:51)
[2018-04-25] MEDS: Metoprolol Tartrate 50 MG Tablet PO SCH (08:51)
--- NOTE | 2018-04-25 09:38 | P.PN ---
Subjective Interval history: swallowing better tolerating well afebrile minimal cough, no sputum Physical Exam Vital signs: Vital Signs 04/24/18 12:00 04/24/18 12:21 04/24/18 16:00 Temperature 98.7 F 97.9 F Pulse Rate 77 84 86 Respiratory Rate 16 16 18 Blood Pressure 91/63 L 109/72 Pulse Oximetry 97 98 04/24/18 19:24 04/24/18 21:20 04/25/18 00:00 Temperature 97.7 F Pulse Rate 81 84 Respiratory Rate 18 17 Blood Pressure 133/77 Pulse Oximetry 98 99 100 04/25/18 00:02 04/25/18 02:32 04/25/18 04:08 Temperature 98.0 F 97.9 F Pulse Rate 70 72 Respiratory Rate 18 17 16 Blood Pressure 105/71 108/67 Pulse Oximetry 100 99 04/25/18 04:10 04/25/18 06:00 04/25/18 06:52 Temperature Pulse Rate Respiratory Rate 15 Blood Pressure Pulse Oximetry 99 100 04/25/18 08:46 Temperature 98 F Pulse Rate 92 H Respiratory Rate 18 Blood Pressure 91/55 L Pulse Oximetry 100 Intake & Output 04/24/18 04/25/18 04/25/18 18:59 06:59 18:59 Intake Total 2660 / 2660 720 / 720 Balance 2660 / 2660 720 / 720 Weight 51.8 kg Intake: IV 200 / 200 Diflucan 200 mg Premix Bag 100 100 / 100 ML @ 100 mls/hr IV.SIG Q24H [facility] Rx#:[id number] Rocephin Inj 1,000 MG In NS Inj 100 / 100 100 ML @ 200 mls/hr IV.SIG Q24H SUS[facility] Rx#:[id number] Oral 2460 / 2460 720 / 720 Other: # Voids 7 6 Date of Last Bowel Movement 04/24/18 04/24/18 # Bowel Movements 5 Narrative: GENERAL: , in no acute distress. alert and oriented x 3 HEENT: Head is normocephalic Eyes: Extraocular muscles are intact. Conjunctivae were clear.no oral thrush NECK: Supple without any masses. Trachea midline no deviation. No JVD, CARDIAC: irregular rhythm, regular rate. S1/S2 are heard. No murmurs gallops or rubs. LUNGS: Diminished breath sounds noted in the right lower lung bush no wheeze, rhonchi or rales. No use of accessory muscles on inspiration or expiration. ABDOMEN: Soft, nontender. Nondistended. Bowel sounds heard in all 4 quadrants. No organomegaly or masses. Negative rebound, negative guarding EXTREMITIES: no edema, pulses are equal bilaterally. No cyanosis or clubbing NEUROLOGY: Mood and affect appear appropriate. Cranial nerves II through XII grossly intact. Moving all extremities, speech is clear gait steady Results - Labs CBC & Chem 7: 04/24/18 10:00 04/24/18 10:00 Laboratory Results - last 24 hr 04/24/18 04/24/18 10:00 10:00 WBC 6.0 RBC 3.92 L Hgb 10.4 L Hct 32.8 L MCV 83.8 MCH 26.5 L MCHC 31.6 L RDW 20.7 H Plt Count 460 H MPV 7.4 Neut % (Auto) 65.6 Lymph % (Auto) 27.5 [place] % (Auto) 0.8 Eos % (Auto) 5.5 H Baso % (Auto) 0.6 Neut # (Auto) 4.0 Lymph # (Auto) 1.7 [place] # (Auto) 0.0 Eos # (Auto) 0.3 Baso # (Auto) 0.0 WBC Differential . Differential Comment Auto diff final Sodium 136 Potassium 4.2 Chloride 96 L Carbon Dioxide 34.1 H Anion Gap 6 BUN 22 H Creatinine 0.71 Estimated GFR Greater than 89 Random Glucose 90 Calcium 8.6 Total Bilirubin 0.3 AST 32 ALT 40 Alkaline Phosphatase 142 H Total Protein 6.7 Albumin 2.2 L Assessment and Plan - Assessment (1) SIRS (systemic inflammatory response syndrome) Code(s): R65.10 - Systemic inflammatory response syndrome (SIRS) of non- infectious origin without acute organ dysfunction Status: Acute (2) PNA (pneumonia) Code(s): J18.9 - Pneumonia, unspecified organism Status: Acute (3) Lung cancer Code(s): C34.90 - Malignant neoplasm of unspecified part of unspecified bronchus or lung Status: Acute (4) Intractable pain Code(s): R52 - Pain, unspecified Status: Acute - Plan Sepsis, Strep pneumonia antigen positive -Patient did meet criteria on admission with leukocytosis, tachycardia, -Chest x-ray did not indicate any infiltrate or source of infection -Urinalysis was unremarkable -Blood cultures remain negative -Strep pneumonia antigen was positive -Sputum culture - normal growth - currently on rocephin- swtiched to po in am- WBC down -On cefepime - changed to Rocephin 04/21 - - consider switched to po antibiotics- when ready for DC complete 10 days - Zithromax - DC- completed 6 days Chronic obstructive pulmonary disease with possible exacerbation- improved -History of smoking -IV abx as above -Continue scheduled Duonebs while awake -Bisi Ray for cough Atrial fibrillation, could be chronic- rate controlled -Original EKG showing irregular, irregular heart rate which could be age fibrillation/atrial flutter -Patient was on telemetry, however too much interference and baseline abnormality unable to determine if any episodes of recurrent atrial fibrillation -Home medication amiodarone, metoprolol continued -Patient is on aspirin for anticoagulation, CHADS2 score 1 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 -Patient status post radiation, undergoing chemotherapy -Oncologyff, cleared for DC -Status post dexamethasone Intractable Pain - controlled -Continue home medications, analgesics/antiemetics as needed - per patient he is ff by pain management Shruthi Esophagitis Dysphagia- -Patient intolerant to solids and liquids -Gastroenterology ff- S/P EGD 04/22 - on IV diflucan- 04/22- change to po diflucan 200 mg po dailyx 10 days - switch to po diflucan tomorrow to complete total 21 days - tolerating current diet- he cuts in into small pieces- refused pureed diet- - start ensure bid- strawberry flavor - OP ff up with GI Hypertension -Home medication was continued DVT prevention -Sequential compression devices -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
--- NOTE | 2018-04-25 10:05 | P.DCO ---
- Physical Therapy Order: Evaluate and treat, Improve ambulation - Home Health Nursing Order: Medical education, Signs/symptoms of disease process, Nursing assessment with vital signs - Certification I have seen patient Lorenzo Mendez on 04/25/18. My clinical findings support the need for the requested home health care services because: Limited mobility due to disease progression, Deconditioned with increased weakness, Need for psychosocial assistance I certify that my clinical findings support that this patient is homebound because: Hx COPD - exertion dyspnea/weakness (with metastatic lung cancer)
--- NOTE | 2018-04-25 10:27 | P.PNONC ---
Subjective Interval history: Afebrile Patient resting in bed; complains of sore throat "that I had since I came in" Feels somewhat stronger Ready to go home Objective Vital Signs/Intake & Output: Vital Signs 04/24/18 12:00 04/24/18 12:21 04/24/18 16:00 Temperature 98.7 F 97.9 F Pulse Rate 77 84 86 Respiratory Rate 16 16 18 Blood Pressure 91/63 L 109/72 Pulse Oximetry 97 98 04/24/18 19:24 04/24/18 21:20 04/25/18 00:00 Temperature 97.7 F Pulse Rate 81 84 Respiratory Rate 18 17 Blood Pressure 133/77 Pulse Oximetry 98 99 100 04/25/18 00:02 04/25/18 02:32 04/25/18 04:08 Temperature 98.0 F 97.9 F Pulse Rate 70 72 Respiratory Rate 18 17 16 Blood Pressure 105/71 108/67 Pulse Oximetry 100 99 04/25/18 04:10 04/25/18 06:00 04/25/18 06:52 Temperature Pulse Rate Respiratory Rate 15 Blood Pressure Pulse Oximetry 99 100 04/25/18 08:46 Temperature 98 F Pulse Rate 92 H Respiratory Rate 18 Blood Pressure 91/55 L Pulse Oximetry 100 Intake & Output 04/24/18 04/25/18 04/25/18 18:59 06:59 18:59 Intake Total 2660 / 2660 720 / 720 100 / 100 Balance 2660 / 2660 720 / 720 100 / 100 Weight 114 lb 3.191 oz Intake: IV 200 / 200 100 / 100 Diflucan 200 mg Premix Bag 100 100 / 100 ML @ 100 mls/hr IV.SIG Q24H [facility] Rx#:[id number] Rocephin Inj 1,000 MG In NS Inj 100 / 100 100 / 100 100 ML @ 200 mls/hr IV.SIG Q24H [facility] Rx#:[id number] Oral 2460 / 2460 720 / 720 Other: # Voids 7 6 Date of Last Bowel Movement 04/24/18 04/24/18 # Bowel Movements 5 Result Diagrams: 04/24/18 10:00 04/24/18 10:00 Laboratory Results: Laboratory Results - last 24 hr 04/24/18 04/24/18 10:00 10:00 WBC 6.0 RBC 3.92 L Hgb 10.4 L Hct 32.8 L MCV 83.8 MCH 26.5 L MCHC 31.6 L RDW 20.7 H Plt Count 460 H MPV 7.4 Neut % (Auto) 65.6 Lymph % (Auto) 27.5 [place] % (Auto) 0.8 Eos % (Auto) 5.5 H Baso % (Auto) 0.6 Neut # (Auto) 4.0 Lymph # (Auto) 1.7 [place] # (Auto) 0.0 Eos # (Auto) 0.3 Baso # (Auto) 0.0 WBC Differential . Differential Comment Auto diff final Sodium 136 Potassium 4.2 Chloride 96 L Carbon Dioxide 34.1 H Anion Gap 6 BUN 22 H Creatinine 0.71 Estimated GFR Greater than 89 Random Glucose 90 Calcium 8.6 Total Bilirubin 0.3 AST 32 ALT 40 Alkaline Phosphatase 142 H Total Protein 6.7 Albumin 2.2 L Medications: Active Medications Generic Name Dose Route Start Last Admin Trade Name Freq PRN Reason Stop Dose Admin Albuterol 1 ampul 04/24/18 08:00 04/25/18 08:50 Duoneb Neb (Flower) NEB Not Given Q6HR WHILE AWAKE NEB [facility] Amiodarone HCl 400 mg 04/17/18 09:00 04/25/18 08:51 Cordarone PO 400 mg DAILY [facility] Administration Aspirin 81 mg 04/17/18 09:00 04/25/18 08:51 Ecotrin PO Not Given DAILY [facility] Clonidine HCl 0.1 mg 04/17/18 09:00 04/25/18 08:51 Catapres PO Not Given Q12HR [facility] Heparin Sodium (Porcine) 250 unit 04/18/18 11:23 04/20/18 05:15 Heparin Central Flush IV.FLUSH 250 unit UNSCH PRN Administration Flush Infusapot Hydromorphone HCl 1 mg 04/16/18 21:04 04/23/18 02:22 Dilaudid Pf Inj IV.PUSH 1 mg Q4H PRN Administration PAIN 6-10 Metoprolol Tartrate 50 mg 04/18/18 09:00 04/25/18 08:51 Lopressor PO 50 mg BID [facility] Administration Morphine Sulfate 100 mg 04/16/18 22:00 04/25/18 05:46 Oramorph Sr PO 100 mg Q8HR [facility] Administration Oxycodone HCl 30 mg 04/16/18 21:30 04/25/18 06:22 Roxicodone PO 30 mg Q4H PRN Administration PAIN SCALE 3 TO 5 Senna/Docusate Sodium 1 tab 04/17/18 09:00 04/25/18 08:51 Heather-Colace PO 1 tab BID [facility] Administration Objective Remarks: GENERAL: Older male resting in bed in no obvious distress SKIN: Warm and dry. HEAD: Normocephalic. EYES: No scleral icterus. No injection or drainage. NECK: Supple, trachea midline. CARDIOVASCULAR: Regular rate and rhythm without murmurs. RESPIRATORY: Breathing easy and unlabored on room air. Diminished posteriorly. GASTROINTESTINAL: Abdomen soft, non-tender, nondistended. EXTREMITIES: No cyanosis or edema. MUSCULOSKELETAL: Adequate muscle tone. NEUROLOGICAL: No obvious focal deficit. Awake, alert, and oriented x3. Assessment/Plan - Plan 62-year-old male with history of metastatic small cell lung cancer admitted with chest pain and shortness of breath. He received his first cycle of carbo and METAL FABRICATOR-16 in late February. He has also seen Dr. Lund for history of a solitary lesion in the ENVIRONMENTAL MARKETER. Plan for stereotactic radiation. Unfortunately he had difficulty with getting his second cycle outpatient and returned to the emergency room after he also ran out of his pain medications. 1. Patient tolerated second cycle chemotherapy well. 2. Clear for discharge from oncology standpoint if antibiotics can be switched to p.o. route. 3. Patient has follow-up appointment on April [address] Herrera; plan to begin Neupogen injections at that time. - Attending Statement The exam, history, and the medical decision-making described in the above note were completed with the assistance of the mid-level provider. I reviewed and agree with the findings presented. I attest that I had a [id number] encounter with the patient on the same day, and personally performed and documented my assessment and findings in the medical record.Late entry. Saw pt in the morning and he is feeling better. CP has improved. Tolerated chemo well but blood count is trending down. He will be discahrge today and f/u oncology clinic 04/27 to start neupogen.
--- NOTE | 2018-04-25 18:36 | P.DS ---
Date of admission: 04/16/18 21:05 Primary care physician: UNKNOWN Anticipated date of discharge: 04/25/18 Brief History from admission: This is a 62-year-old male with PMH of HTN, COPD, Chronic Pain and Lung CA w/ Brain Metastasis who presented to the ER w/ c/o SOB, generalized weakness and intractable pain. Follows w/ Dr. Herrera w/ Oncology, states he underwent brain radiation and was scheduled to have chemo last week however he's been too weak to get treatment. Notes progressive SOB and worsening generalized pain/ weakness. Denies fever or chills. Notes intermittent cough w/ green-colored sputum. On arrival, BP 146/72, HR 88, O2 sat 98% on RA, Afebrile. WBC 23.9. INR 1.2. Chemistry essentially unremarkable. BNP 549. Troponin negative. CXR with collapse of right middle lobe and right lower lobe, tiny right pleural effusion. S/p Cefepime/Zithro in ER. DS: Diagnosis - Discharge Diagnosis (1) SIRS (systemic inflammatory response syndrome) Status: Acute (2) PNA (pneumonia) Status: Acute (3) Lung cancer Status: Acute (4) Intractable pain Status: Acute DS: Medications - Discharge Medications Prescriptions: fluconazole 200 mg PO Q24H 16 Days #16 tab metoprolol tartrate 50 mg PO BID 30 Days #60 tab DS: Summary Hospital Course: Sepsis, Strep pneumonia antigen positive -Patient did meet criteria on admission with leukocytosis, tachycardia, -Chest x-ray did not indicate any infiltrate or source of infection -Urinalysis was unremarkable -Blood cultures remain negative -Strep pneumonia antigen was positive -Sputum culture - normal growth - currently on rocephin- swtiched to po in am- WBC down -On cefepime - changed to Rocephin 04/21 - - consider switched to po antibiotics- when ready for DC complete 10 days - Zithromax - DC- completed 6 days Chronic obstructive pulmonary disease with possible exacerbation- improved -History of smoking -IV abx as above -Continue scheduled Duonebs while awake -Tessalon Perles for cough Atrial fibrillation, could be chronic- rate controlled -Original EKG showing irregular, irregular heart rate which could be age fibrillation/atrial flutter -Patient was on telemetry, however too much interference and baseline abnormality unable to determine if any episodes of recurrent atrial fibrillation -Home medication amiodarone, metoprolol continued -Patient is on aspirin for anticoagulation, CHADS2 score 1 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 -Patient status post radiation, undergoing chemotherapy -Oncologyff, cleared for DC -Status post dexamethasone Intractable Pain - controlled -Continue home medications, analgesics/antiemetics as needed - per patient he is ff by pain management Shruthi Esophagitis Dysphagia- -Patient intolerant to solids and liquids -Gastroenterology ff- S/P EGD 04/22 - on IV diflucan- 04/22- change to po diflucan 200 mg po dailyx 10 days - switch to po diflucan tomorrow to complete total 21 days - tolerating current diet- he cuts in into small pieces- refused pureed diet- - start ensure bid- strawberry flavor - OP ff up with GI Hypertension -Home medication was continued DVT prevention -Sequential compression devices -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 chemical 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- ensure tid with trays DC home FF up with PCP, pain managment - [place] d/w [place] pain management- he goes to a pain management clinic- to ff up - Time Spent with Patient Total time spent providing and/or coordinating discharge services: Greater than 30 minutes - Quality: VTE Deep Vein Thrombosis/Pulmonary Embolism Present on Admission: No Exam Vital signs: Vital Signs 04/24/18 19:24 04/24/18 21:20 04/25/18 00:00 Temperature 97.7 F Pulse Rate 81 84 Respiratory Rate 18 17 Blood Pressure 133/77 Pulse Oximetry 98 99 100 04/25/18 00:02 04/25/18 02:32 04/25/18 04:08 Temperature 98.0 F 97.9 F Pulse Rate 70 72 Respiratory Rate 18 17 16 Blood Pressure 105/71 108/67 Pulse Oximetry 100 99 04/25/18 04:10 04/25/18 06:00 04/25/18 06:52 Temperature Pulse Rate Respiratory Rate 15 Blood Pressure Pulse Oximetry 99 100 04/25/18 08:46 Temperature 98 F Pulse Rate 92 H Respiratory Rate 18 Blood Pressure 91/55 L Pulse Oximetry 100 Intake & Output 04/24/18 04/25/18 04/25/18 18:59 06:59 18:59 Intake Total 2660 / 2660 720 / 720 100 / 100 Balance 2660 / 2660 720 / 720 100 / 100 Weight 51.8 kg Intake: IV 200 / 200 100 / 100 Diflucan 200 mg Premix Bag 100 100 / 100 ML @ 100 mls/hr IV.SIG Q24H [facility] Rx#:[id number] Rocephin Inj 1,000 MG In NS Inj 100 / 100 100 / 100 100 ML @ 200 mls/hr IV.SIG Q24H [facility] Rx#:[id number] Oral 2460 / 2460 720 / 720 Other: # Voids 7 6 Date of Last Bowel Movement 04/24/18 04/24/18 04/25/18 # Bowel Movements 5 Results Procedures completed during hospitalization: 04/22- EGD Pending studies at discharge: Pending at discharge 04/22/18 13:10 Surgical [PTH] Routine - Impressions ITS Impressions Chest X-Ray 04/17/18 14:46 CONCLUSION: No change in combined right middle lobe and lower lobe collapse with a tiny right pleural effusion. Discharge Plan - Discharge Disposition Patient Disposition: 01 Discharge Home - Discharge Condition Condition: Stable - Discharge Order Discharge Orders: Discharge Order (Routine); Ordered 04/25/18 Ordered By: Angela Ji - Discharge Details Anticipated Discharge Date: 04/25/18 - Physicians Team Primary Care Provider: UNKNOWN, Attending Provider: Angela Ji Other Providers: Sb Herrera MD ; Ashok Mike MD ; Mary Murphy MD
== END 2018-04-25 14:00 | disposition home or self-care (01) ==
LOC: NEPE 18:09 → NEDA 21:05 → N04 23:55 → HCIN 04-18 13:05
PROVIDERS: ADMIT Internal Medicine; ATTEND Internal Medicine
PROC: PANENDO (2018-04-22 10:02)

== ENCOUNTER 2018-06-17 16:00 | Inpatient (IN) ==
[2018-06-17] MEDS: Sod Chloride 0.9% Inj 1,000 ML IV.CONT SCH ×2 (16:00→19:00)
[2018-06-17] MEDS ORDERED: Etomidate Inj 40 MG/20 ML Vial IV.PUSH ONE ×2 (16:03→16:23)
[2018-06-17] MEDS ORDERED: Succinylcholine Inj 200 MG/10 ML Vial ONE (16:03)
[2018-06-17] MEDS ORDERED: Succinylcholine Inj 100 MG/5 ML Syringe IV.PUSH ONE (16:23)
--- NOTE | 2018-06-17 16:31 | ED ---
HPI General Chief Complaint: Altered Mental Status Stated Complaint: Medical,Evac Time Seen by Provider: 06/17/18 16:11 History of Present Illness HPI narrative: Patient is about 59 years old male with history of terminal brain and lung cancer, suddenly fell face down at home, had seizure episode. When EMS came the treated him with Versed, patient was brought to emergency room unconscious, sedated. His saturation was 88-90 on room air, as per EMS patient brother ask to save his life, at this time patient is full code. IV line placed, patient was intubated, placed on ventilation machine. Pupils are 3 mm equal sluggish. Has abrasion over his forehead and bridge of the nose. There is significant rhonchi bilateral during colonic auscultation. Heart rate is 170, rapid A. fib on EKG. Patient treated with Cardizem. Related Data Home Medications Medication Instructions Recorded Confirmed Unable to Obtain Home Meds 06/17/18 06/17/18 Allergies Allergy/AdvReac Type Severity Reaction Status Date / Time No Allergy Information Allergy Unverified 06/17/18 16:11 Available Review of Systems ROS: all other systems reviewed are negative Respiratory Comments: Respiratory failure [facility] Medical History Medical History Brain cancer (Acute) History of chemotherapy (Acute) Lung cancer (Acute) Social History Social History Substance History: Unable to Obtain Smoking Status: Cognitive impairment How Often Do You Have a Drink Containing Alcohol: Unable to Obtain Recent Travel in [facility] within the Last 8 Weeks: No Recent Out of Country Travel within the Last 8 Weeks: No Immunization History Tetanus Immunization: Unable to Assess Course Initial Documented Vital Signs Pulse Rate 165 H 06/17/18 16:03 Respiratory Rate 12 06/17/18 16:03 Blood Pressure 180/109 H 06/17/18 16:03 Pulse Oximetry 95 06/17/18 16:03 Last Documented Vital Signs Pulse Rate 175 H 06/17/18 19:40 Respiratory Rate 26 H 06/17/18 19:40 Blood Pressure 95/59 L 06/17/18 17:15 Pulse Oximetry 97 06/17/18 19:40 Procedures Intubation Time Out Performed: Yes Sedative: etomidate Mg Given: 20 Paralytic: succinylcholine Mg Given: 100 Laryngoscope: Lb ET Tube Size: 8 ET Tube Uncuffed: No Tube Secured Depth (cm): 23 Tube Secured Location: lips Tube Placement Confirmation: visualized tube passing through cords, equal breath sounds bilaterally, no breath sounds over epigastrium and confirmation by capnometry Patient Tolerated Procedure: well and no complications Intubation Complications: none Additional Comments: Intubation was done 2 times due to self extubation. Critical Care Time Critical Care Time: Yes Total Critical Care Time: 80 Attestation: Aggregate critical care time was 80 minutes. Time to perform other separately billable procedures was not included in the critical care time. My time did not include minutes spent treating any other patients simultaneously or on activities that did not directly contribute to the patient's treatment. The services I provided to this patient were to treat and/or prevent clinically significant deterioration that could result in: [-] I provided critical care services requiring my management, as noted below: Chart data review, documentation time, medication orders and management, vital sign assessments/reviewing monitor data, ordering and reviewing lab tests, ordering and interpreting/reviewing x-rays and diagnostic studies, care of the patient and discussion of the patient with the admitting physicians. Medical Decision Making MDM Narrative Medical decision making narrative: Patient was terminal lung, brain tumor, syncopized at home, had episode of seizures. Because of new event of rapid A. fib and respiratory failure patient was intubated. Blood work ordered, CAT scans and x-rays. Cardizem given for heart rate and blood pressure. Vitals improved. Patient has most likely aspiration pneumonia , started on antibiotics. Patient with brain and lung tumor, seizure disorder most likely has pneumonia as per chest x-ray, lactic acid is high, fluids given, case was discussed with Dr. Mas who accepted patient for admission. Patient was not started on propofol drip due to complete sedation and unresponsiveness. Patient extubated himself before sedation was given, was able to maintain oxygen saturation 100%, agitated. Blood pressure and heart rate increased. Heart rate is up to 160. Family arrived, I discussed with them prognosis, possible treatment and DNR order. Family decided to continue with full code. Patient was intubated again 1999. Patient is accepted to ICU for admission. Medical Screen Exam Complete: Yes Emergency Medical Condition: Yes Lab Data Result diagrams: 06/17/18 16:36 06/17/18 16:36 Lab Results 06/17/18 06/17/18 06/17/18 Range/Units 16:03 16:36 16:36 WBC 17.5 H (4.0-11.0) th/mm3 RBC 3.13 L (4.50-5.90) mil/mm3 Hgb 9.5 L (13.0-17.0) gm/dL Hct 31.2 L (39.0-51.0) % MCV 99.6 (80.0-100.0) fL MCH 30.4 (27.0-34.0) pg MCHC 30.5 L (32.0-36.0) % RDW 25.9 H (11.6-17.2) % Plt Count 572 H (150-450) th/mm3 MPV 7.7 (7.0-11.0) fL Prelim Diff (Auto) Slide review pending Neut % (Auto) 50.0 (16.0-70.0) % Lymph % (Auto) 37.3 (9.0-44.0) % Fajardo % (Auto) 11.7 H (0.0-8.0) % Eos % (Auto) 0.5 (0.0-4.0) % Baso % (Auto) 0.5 (0.0-2.0) % Neut # (Auto) 8.7 H (1.8-7.7) th/mm3 Lymph # (Auto) 6.5 H (1.0-4.8) th/mm3 Fajardo # (Auto) 2.0 H (0.0-0.9) th/mm3 Eos # (Auto) 0.1 (0.0-0.4) th/mm3 Baso # (Auto) 0.1 (0.0-0.2) th/mm3 WBC Differential . Diff Scan Auto diff confirmed Differential Comment . Puncture Site Patient Temperature O2 Saturation (90-100) % ABG pH (7.380-7.420) ABG pCO2 (38-42) mmHg ABG pO2 (61-120) mmHg ABG HCO3 (22-26) mmol/L ABG O2 Content (12.0-20.0) Vol % ABG Base Excess (-2-2) mmol/L ABG Methemoglobin (0-2) % Memo Test Hemoglobin (12.0-16.0) G/DL Carboxyhemoglobin (0-4) % O2 Delivery Device Vent Setting Inspired O2 % Critical Value Sodium 138 (136-145) meq/L Potassium 4.6 (3.5-5.1) meq/L Chloride 100 (98-107) meq/L Carbon Dioxide 19.1 L (21.0-32.0) meq/L Anion Gap 19 H (5-15) meq/L BUN 21 H (7-18) mg/dL Creatinine 1.20 (0.60-1.30) mg/dL Estimated GFR 52 L (>89) mL/min POC Glucose 206 H (68-110) mg/dl Random Glucose 202 H (74-106) mg/dL Lactic Acid (0.4-2.0) mmol/L Calcium 8.5 (8.5-10.1) mg/dL Magnesium 2.1 (1.5-2.5) mg/dL Total Bilirubin 0.3 (0.2-1.0) mg/dL AST 32 (15-37) U/L ALT 20 (12-78) U/L Alkaline Phosphatase 94 (45-117) U/L Troponin I 0.26 H (0.02-0.05) ng/mL Total Protein 7.4 (6.4-8.2) g/dL Albumin 2.9 L (3.4-5.0) g/dL Urine Color (Yellw/Straw) Urine Clarity (Clear) Urine pH (5.0-8.5) Ur Specific Hinton (1.002-1.035) Urine Protein (Neg-Trace) mg/dL Urine Glucose (UA) (Negative) mg/dL Urine Ketones (Negative) mg/dL Urine Occult Blood (Negative) Urine Nitrate (Negative) Urine Bilirubin (Negative) Urine Urobilinogen (Less than 2) mg/dL Ur Leukocyte Esterase (Negative) Urine RBC (0-3) /hpf Urine WBC (0-5) /hpf Hyaline Casts (0-3) /lpf Granular Casts (None) /lpf Micro UA Comment Ur Microscopic Review Urine Culture Comments 06/17/18 06/17/18 06/17/18 Range/Units 16:36 17:30 18:05 WBC (4.0-11.0) th/mm3 RBC (4.50-5.90) mil/mm3 Hgb (13.0-17.0) gm/dL Hct (39.0-51.0) % MCV (80.0-100.0) fL MCH (27.0-34.0) pg MCHC (32.0-36.0) % RDW (11.6-17.2) % Plt Count (150-450) th/mm3 MPV (7.0-11.0) fL Prelim Diff (Auto) Neut % (Auto) (16.0-70.0) % Lymph % (Auto) (9.0-44.0) % Fajardo % (Auto) (0.0-8.0) % Eos % (Auto) (0.0-4.0) % Baso % (Auto) (0.0-2.0) % Neut # (Auto) (1.8-7.7) th/mm3 Lymph # (Auto) (1.0-4.8) th/mm3 Fajardo # (Auto) (0.0-0.9) th/mm3 Eos # (Auto) (0.0-0.4) th/mm3 Baso # (Auto) (0.0-0.2) th/mm3 WBC Differential Diff Scan Differential Comment Puncture Site Right radial Patient Temperature 98.6 O2 Saturation 97 (90-100) % ABG pH 7.32 L (7.380-7.420) ABG pCO2 48 H (38-42) mmHg ABG pO2 301 H (61-120) mmHg ABG HCO3 24 (22-26) mmol/L ABG O2 Content 19.2 (12.0-20.0) Vol % ABG Base Excess -1.1 (-2-2) mmol/L ABG Methemoglobin 0.6 (0-2) % Memo Test Present Hemoglobin 13.6 (12.0-16.0) G/DL Carboxyhemoglobin 2.6 (0-4) % O2 Delivery Device Ventilator Vent Setting See comments Inspired O2 70 % Critical Value No Sodium (136-145) meq/L Potassium (3.5-5.1) meq/L Chloride (98-107) meq/L Carbon Dioxide (21.0-32.0) meq/L Anion Gap (5-15) meq/L BUN (7-18) mg/dL Creatinine (0.60-1.30) mg/dL Estimated GFR (>89) mL/min POC Glucose (68-110) mg/dl Random Glucose (74-106) mg/dL Lactic Acid 16.5 H* (0.4-2.0) mmol/L Calcium (8.5-10.1) mg/dL Magnesium (1.5-2.5) mg/dL Total Bilirubin (0.2-1.0) mg/dL AST (15-37) U/L ALT (12-78) U/L Alkaline Phosphatase (45-117) U/L Troponin I (0.02-0.05) ng/mL Total Protein (6.4-8.2) g/dL Albumin (3.4-5.0) g/dL Urine Color Yellow (Yellw/Straw) Urine Clarity Cloudy H (Clear) Urine pH 5.0 (5.0-8.5) Ur Specific Hinton 1.011 (1.002-1.035) Urine Protein 100 H (Neg-Trace) mg/dL Urine Glucose (UA) Negative (Negative) mg/dL Urine Ketones Negative (Negative) mg/dL Urine Occult Blood Small H (Negative) Urine Nitrate Negative (Negative) Urine Bilirubin Negative (Negative) Urine Urobilinogen Less than 2 (Less than 2) mg/dL Ur Leukocyte Esterase Negative (Negative) Urine RBC 1 (0-3) /hpf Urine WBC 1 (0-5) /hpf Hyaline Casts 47 (0-3) /lpf Granular Casts 12 (None) /lpf Micro UA Comment Cath-culture not ind Ur Microscopic Review Not Reportable Urine Culture Comments Cath-cult not ind Imaging Data Radiologist's impression: Chest X-Ray 06/17/18 16:19 CONCLUSION: 1. Endotracheal tube in appropriate position with tip measuring 3.8 cm from the mecca. 2. Right basilar opacity with an appearance suggesting right lower lobe collapse. There is likely a trace right pleural fluid as well. These findings will be further characterized on the currently ordered chest CT. Head CT 06/17/18 16:19 CONCLUSION: 1. Negative CT Head non contrast other than known sinus surgery. . Cervical Spine CT 06/17/18 16:25 CONCLUSION: No acute cervical spine abnormality is identified. There is multilevel degenerative disc disease. Chest CT 06/17/18 16:25 CONCLUSION: 1. Near-complete collapse of the right lower lobe with a large mucous plug in the right lower lobe bronchus. There is quite dense material in the right lower lobe possible aspiration. The ET tube is in good position. The rest of the lungs are clear. There is a small pleural effusion Discharge Plan Discharge Disposition Patient Disposition: 30 Still Patient Discharge Condition Condition: Critical Discharge Details Diagnosis: Altered mental status, Brain tumor, Lung neoplasm, Seizure, Metabolic acidosis Physicians Team ED Provider: Madhu Muhammad Primary Care Provider: UNKNOWN, Attending Provider: Beto Mas Discharge Interventions Interventions: Vital Signs Last Done: 06/17/18 17:15 Status ED Status: Admitted Patient
[2018-06-17 16:54] LABS: Baso # (Auto) 0.1 th/mm3 (0.0-0.2); Baso % (Auto) 0.5 % (0.0-2.0); Eos # (Auto) 0.1 th/mm3 (0.0-0.4); Eos % (Auto) 0.5 % (0.0-4.0); Hematocrit 31.2 % (39.0-51.0); Hemoglobin 9.5 gm/dL (13.0-17.0); Lymph # (Auto) 6.5 th/mm3 (1.0-4.8); Lymph % (Auto) 37.3 % (9.0-44.0); Mean Corpuscular Hemoglobin 30.4 pg (27.0-34.0); Mean Corpuscular Volume 99.6 fL (80.0-100.0); Mean Platelet Volume 7.7 fL (7.0-11.0); Mono % (Auto) 11.7 % (0.0-8.0); Neut # (Auto) 8.7 th/mm3 (1.8-7.7); Platelet Count 572 th/mm3 (150-450); Red Blood Count 3.13 mil/mm3 (4.50-5.90); Red Cell Distribution Width 25.9 % (11.6-17.2); White Blood Count 17.5 th/mm3 (4.0-11.0)
[2018-06-17 17:01] LABS: Mean Corpuscular HGB Conc 30.5 % (32.0-36.0)
[2018-06-17] MEDS ORDERED: Piperacil/Tazo 3.375 GM Premix 50 ML IV.SIG ONE (17:05)
[2018-06-17] MEDS ORDERED: Vancomycin Inj 1 GM/200 ML PIGGYBACK IV.SIG ONE (17:05)
[2018-06-17 17:06] LABS: Bilirubin,Urine Negative (Negative); Clarity,Urine Cloudy (Clear); Color,Urine Yellow (Yellw/Straw); Glucose,Urine (UA) Negative (Negative); Hyaline Casts,Urine 47 /lpf (0-3); Leukocyte Esterase,Urine Negative (Negative); Nitrite,Urine Negative (Negative); Specific Gravity,Urine 1.011 (1.002-1.035)
--- NOTE | 2018-06-17 17:20 | XR ---
EXAM DATE: 06/17/2018 5:17 PM EDT AGE/SEX: 89 years / Male INDICATIONS: Intubation. CLINICAL DATA: This is the patient's initial encounter. Patient reports that signs and symptoms have been present for 1 day and indicates a pain score of Nonresponsive. MEDICAL/SURGICAL HISTORY: Non-responsive. Non-responsive. COMPARISON: No prior exams available for comparison. FINDINGS: Portable AP views of the chest demonstrate a normal-sized cardiac silhouette. Right chest wall Infuse -a-Port is present with distal tip in the superior vena cava. Endotracheal tube is present with dista l tip measuring 3.8 cm from the mecca. Nasogastric tube distal tip is within the stomach. Well veronica cated interface/opacity is at the right base with mild right pleural-based opacity. No pneumothorax i s identified. Bones demonstrate no acute abnormality. CONCLUSION: 1. Endotracheal tube in appropriate position with tip measuring 3.8 cm from the mecca. 2. Right basilar opacity with an appearance suggesting right lower lobe collapse. There is likely a trace right pleural fluid as well. These findings will be further characterized on the currently [facility] chest CT. Electronically signed by: Dheeraj Ferrer MD 06/17/2018 5:19 PM EDT
[2018-06-17 17:22] LABS: Alanine Aminotransferase 20 U/L (12-78); Albumin 2.9 g/dL (3.4-5.0); Anion Gap 19 meq/L (5-15); Aspartate Aminotransferase 32 U/L (15-37); Blood Urea Nitrogen 21 mg/dL (7-18); Calcium 8.5 mg/dL (8.5-10.1); Carbon Dioxide 19.1 meq/L (21.0-32.0); Chloride 100 meq/L (98-107); Glomerular Filtration Rate 52 mL/min (>89); Glucose,Random 202 mg/dL (74-106); Magnesium 2.1 mg/dL (1.5-2.5); Potassium 4.6 meq/L (3.5-5.1); Sodium 138 meq/L (136-145)
[2018-06-17 17:25] LABS: Alkaline Phosphatase 94 U/L (45-117); Total Protein 7.4 g/dL (6.4-8.2); Troponin I 0.26 ng/mL (0.02-0.05)
--- NOTE | 2018-06-17 17:39 | CT ---
EXAM DATE: 06/17/2018 5:29 PM EDT AGE/SEX: 89 years / Male INDICATIONS: Found unconscious. Three seizures. CLINICAL DATA: This is the patient's initial encounter. Patient reports that signs and symptoms have been present for 1 day and indicates a pain score of Nonresponsive. MEDICAL/SURGICAL HISTORY: Carcinoma, lung. Carcinoma, brain. Chemotherapy. None. RADIATION DOSE: 19.10 CTDI (mGy) COMPARISON: . TECHNIQUE: Multiple contiguous axial images were obtained through the chest without contrast. Image s were obtained in suspended respiration using multiple row detector helical technique. Using automa asmita exposure control and adjustment of the mA and/or kV according to patient size, radiation dose was kept as low as reasonably achievable to obtain optimal diagnostic quality images. DICOM format imag e data is available electronically for review and comparison. FINDINGS: Lungs: There is significant mucous plugging in the right lower lobe bronchus. There is significant c onsolidation of the right lower lobe including some quite dense material. Almost entire right lower l obe is opacified. There is aeration of the right middle lobe and right upper lobe which is normal. Th e left lung is clear. The ET tube is in good position. Mediastinum: There is good visualization of the great vessels of the middle mediastinum. No evidenc e of mediastinal or hilar adenopathy/mass. Right-sided Ayzmyn-v-Meri in good position. Pleurae: No evidence of focal thickening. There is a small right-sided pleural effusion. Axillae: Unremarkable. Bony Structures: Unremarkable. Miscellaneous: The examination was extended to include the upper abdomen, and both adrenal glands ar e normal in size and configuration. NG tube in good position CONCLUSION: 1. Near-complete collapse of the right lower lobe with a large mucous plug in the right lower lobe b ronchus. There is quite dense material in the right lower lobe possible aspiration. The ET tube is in good position. The rest of the lungs are clear. There is a small pleural effusion Electronically signed by: Allen Owen MD 06/17/2018 5:38 PM EDT
--- NOTE | 2018-06-17 17:44 | CT ---
EXAM DATE: 06/17/2018 5:27 PM EDT AGE/SEX: 89 years / Male INDICATIONS: Found unconscious. Three seizures. CLINICAL DATA: This is the patient's initial encounter. Patient reports that signs and symptoms have been present for 1 day and indicates a pain score of Nonresponsive. MEDICAL/SURGICAL HISTORY: Carcinoma, lung. Carcinoma, brain. Chemotherapy. None. RADIATION DOSE: 65.36 CTDI (mGy) COMPARISON: No prior exams available for comparison. TECHNIQUE: CT of the head without contrast. Using automated exposure control and adjustment of the mA and/or kV according to patient size, radiation dose was kept as low as reasonably achievable to ob tain optimal diagnostic quality images. DICOM format image data is available electronically for revi ew and comparison. FINDINGS: Cerebrum: The ventricles are normal for age. No evidence of midline shift, mass lesion, hemorrhage or acute infarction. No extraaxial fluid collections are seen. Posterior Fossa: The cerebellum and brainstem are intact. The 4th ventricle is midline. The cerebe llopontine angle is unremarkable. Extracranial: The visualized portion of the orbits is intact. There is a left maxillary sinus surger y. There is residual mucoperiosteal thickening Skull: The calvaria is intact. No evidence of skull fracture. CONCLUSION: 1. Negative CT Head non contrast other than known sinus surgery. . Electronically signed by: Allen Owen MD 06/17/2018 5:43 PM EDT
--- NOTE | 2018-06-17 17:45 | CT ---
EXAM DATE: 06/17/2018 5:32 PM EDT AGE/SEX: 89 years / Male INDICATIONS: Found unconscious. Three seizures. CLINICAL DATA: This is the patient's initial encounter. Patient reports that signs and symptoms have been present for 1 day and indicates a pain score of Nonresponsive. MEDICAL/SURGICAL HISTORY: Carcinoma, lung. Carcinoma, brain. Chemotherapy. None. RADIATION DOSE: 8.90 CTDI (mGy) COMPARISON: No prior exams available for comparison. TECHNIQUE: Contiguous axial images were obtained using helical multirow detector technique. The vol umetric data was post-processed with multiplanar reconstruction in oblique axial, sagittal, and coron al planes. Using automated exposure control and adjustment of the mA and/or kV according to patient s ize, radiation dose was kept as low as reasonably achievable to obtain optimal diagnostic quality caterina ges. DICOM format image data is available electronically for review and comparison. FINDINGS: There is normal sagittal spinal alignment. No fracture or dislocation is identified. The atlantoaxial relationship is within normal limits and there is no prevertebral soft tissue swelling. Degenerative disc disease is present at C3-C4 and extending through C6-C7. No large disc herniation is seen in th e upper cervical spine. The visualized surrounding structures demonstrate no acute finding. There is mild emphysema at the adam ng apices. CONCLUSION: No acute cervical spine abnormality is identified. There is multilevel degenerative disc disease. Electronically signed by: Dheeraj Ferrer MD 06/17/2018 5:43 PM EDT
[2018-06-17] MEDS ORDERED: Vancomycin Inj 1,000 MG in Sodium Chlor 0.9% Inj 250 ML IV.SIG ONE (18:00)
[2018-06-17] MEDS: Sod Chloride 0.9% Inj 1,000 ML IV.SIG SCH ×2 (18:15→19:00)
[2018-06-17 18:18] LABS: ABG Base Excess -1.1 mmol/L (-2-2); ABG PCO2 48 mmHg (38-42); ABG PO2 301 mmHg (61-120)
[2018-06-17] MEDS ORDERED: levETIRAcetam 1000mg/100mL Inj 100 ML IV.SIG ONE (18:42)
[2018-06-17] MEDS ORDERED: Magnesium Sulfate Inj 2 GM in Sodium Chlor 0.9% Inj 96 ML IV.SIG PRN (18:49)
[2018-06-17] MEDS ORDERED: Magnesium Oxide 400 MG Tablet PO PRN (18:49)
[2018-06-17] MEDS ORDERED: Acetaminophen 325 MG Tablet PO PRN (18:49)
[2018-06-17] MEDS ORDERED: Potassium Phosphate Inj 30 MMOL in Sodium Chlor 0.9% Inj 250 ML IV.SIG PRN (18:49)
[2018-06-17] MEDS ORDERED: Sodium Phosphate Inj 30 MMOL in Sodium Chlor 0.9% Inj 250 ML IV.SIG PRN (18:49)
[2018-06-17] MEDS ORDERED: Potassium Chlor 20 mEq Premix 20 MEQ/100 ML PIGGYBACK IV.SIG PRN ×2 (18:49)
[2018-06-17] MEDS ORDERED: Magnesium Sulfate Inj 4 GM in Sodium Chlor 0.9% Inj 92 ML IV.SIG PRN (18:49)
[2018-06-17] MEDS ORDERED: Potassium Chloride 25 MEQ Effervescent Tablet PO PRN (18:49)
[2018-06-17] MEDS ORDERED: Bisacodyl 10 MG Supp RECTAL PRN (18:49)
[2018-06-17] MEDS ORDERED: Potassium Phosphate 500 MG Soluble Tablet PO PRN ×2 (18:49)
[2018-06-17] MEDS ORDERED: Potassium Chlor 40 mEq Premix 40 MEQ/100 ML PIGGYBACK IV.SIG PRN ×2 (18:49)
[2018-06-17] MEDS ORDERED: Phenylephrine Inj 160 MG in Sodium Chlor 0.9% Inj 484 ML IV.CONT PRN (18:54)
[2018-06-17] MEDS ORDERED: Dextrose 50% in Water 50 ML Vial IV.PUSH PRN (18:54)
--- NOTE | 2018-06-17 19:05 | P.HPCC ---
History of Present Illness Service: Critical care medicine Primary Care Physician: UNKNOWN Chief Complaint: Altered mental status/seizure History of Present Illness: This is a male. Unknown age. Date of admission 06/17/2018. Past medical history includes brain cancer stage III according to brother, lung cancer presents to [facility] with acute onset of altered mental status. While at home today, this patient suddenly fell face down at home, had seizure episode. When EMS came the treated him with Versed, patient was brought to emergency room unconscious, sedated. His saturation was 88-90 on room air, as per EMS patient brother ask to save his life, at this time patient is full code. IV line placed, patient was intubated, placed on ventilation machine. Pupils are 3 mm equal sluggish. Has abrasion over his forehead and bridge of the nose. There is significant rhonchi bilateral during auscultation. Heart rate is 170, rapid A. fib on EKG. Patient treated with Cardizem. Patient did self extubate was reintubated due to similar findings. CT brain no acute findings. CT C-spine no acute findings. CT abdomen/pelvis revealed ascites. In discussion with brother, patient has stage III of brain cancer/lung cancer but had "improved somewhat over the past month. He wishes him to be full code at the present time. His name is been lost to him at the present time however. 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 - Medical History Medical History: Medical History (Last Reviewed 06/17/18 @ 23:27 by Beto Mas MD) Brain cancer History of chemotherapy Lung cancer - Tobacco History Smoking Status: Cognitive impairment - Alcohol History How Often Do You Have a Drink Containing Alcohol: Unable to Obtain - Substance Use History Substance History: Unable to Obtain - Travel History Recent Travel in the [place] Within the Last 8 Weeks: No Recent Travel Out of the Country Within the Last 8 Weeks: No - Immunization History Tetanus Immunization: Unable to Assess Medications and Allergies Active Medications: Active Medications Acetaminophen (Tylenol) 650 mg PO Q6H PRN PRN Reason: FEVER Al Hydroxide/Mg Hydroxide (Milk Of Magnesia Liq) 30 ml PO Q12H PRN PRN Reason: Mild Constipation Albuterol (Albuterol Neb (Flower)) 2.5 mg NEB Q2HR NEB PRN PRN Reason: SHORTNESS OF BREATH/WHEEZING Albuterol (Duoneb Neb (Prn)) 1 ampul NEB Q4HR NEB [facility] Bisacodyl (Dulcolax Supp) 10 mg RECTAL DAILY PRN PRN Reason: SEVERE CONSITIPATION Chlorhexidine Gluconate (Peridex 0.12% Oral Kit) 15 ml OROPHARYNG BID@0800, 2000 [facility] Chlorhexidine Gluconate (Chlorhexidine 2% Cloth) 3 pack TOPICAL DAILY@0400 [facility] Stop: 06/23/18 03:59 Chlorhexidine Gluconate (Chlorhexidine 2% Cloth) 3 pack TOPICAL DAILY@0400 PRN PRN Reason: Extra cloth needed Stop: 06/23/18 03:59 Dextrose (D50w Vial) 50 ml IV.PUSH UNSCH PRN PRN Reason: PER HYPOGLYCEMIA PROTOCOL Glucagon (Glucagon Inj) 1 mg OTHER PRN PRN PRN Reason: for Hypoglycemia Protocol Heparin Sodium (Porcine) (Heparin Inj) 5,000 units SQ Q12H [facility] Sodium Chloride (Ns Inj) 1,000 mls @ 500 mls/hr IV.CONT .Q2H [facility] Last Infusion: 06/17/18 17:42 Dose: Infused Sodium Chloride (Ns Inj) 1,000 mls @ 2,000 mls/hr IV.SIG Q30M [facility] Stop: 06/17/18 19:14 Fentanyl (Fentanyl 10 Mcg/Ml Premix Drip) 2,500 mcg in 250 mls @ 5 mls/hr IV.SIG TITRATE PRN; Protocol PRN Reason: Per Protocol Magnesium Sulfate 4 gm/ Sodium (Chloride) 100 mls @ 50 mls/hr IV.SIG UNSCH PRN PRN Reason: For Magnesium 0.9 - 1.1 mg/dL Magnesium Sulfate 2 gm/ Sodium (Chloride) 100 mls @ 50 mls/hr IV.SIG UNSCH PRN PRN Reason: For Magnesium 1.2 - 1.6 mg/dL Sodium Chloride (Ns Inj) 1,000 mls @ 84 mls/hr IV.CONT .[id number] [facility] Potassium Chloride (Kcl 20 Meq Premix Inj) 20 meq in 100 mls @ 50 mls/hr IV.SIG Q2H PRN PRN Reason: For Potassium 3.3 - 3.5 mEq/L Potassium Chloride (Kcl 40 Meq Premix Inj) 40 meq in 100 mls @ 25 mls/hr IV.SIG UNSCH PRN PRN Reason: For Potassium 3.3 - 3.5 mEq/L Potassium Chloride (Kcl 20 Meq Premix Inj) 20 meq in 100 mls @ 50 mls/hr IV.SIG Q2H PRN PRN Reason: For Potassium 2.8 - 3.2 mEq/L Potassium Phosphate 30 mmol/ (Sodium Chloride) 260 mls @ 42 mls/hr IV.SIG UNSCH PRN PRN Reason: SEE LABEL COMMENTS Propofol (Diprivan 1000 Mg/100 Ml Inj) 1,000 mg in 100 mls @ 1.837 mls/hr IV.CONT TITRATE PRN; Protocol PRN Reason: Per Protocol Sodium Phosphate 30 mmol/ (Sodium Chloride) 260 mls @ 42 mls/hr IV.SIG UNSCH PRN PRN Reason: For Phosphorus < 2.5 mg/dL Potassium Chloride (Kcl 40 Meq Premix Inj) 40 meq in 100 mls @ 25 mls/hr IV.SIG Q2H PRN PRN Reason: For Potassium 2.8 - 3.2 mEq/L Phenylephrine HCl 160 mg/ (Sodium Chloride) 500 mls @ 7.5 mls/hr IV.CONT TITRATE PRN; Protocol PRN Reason: See protol Levetiracetam 500 mg/ Sodium (Chloride) 105 mls @ 400 mls/hr IV.SIG Q12H [facility] Insulin Aspart (Novolog Insulin Correctional Sugar Inj) 0 unit SQ Q6HR [facility]; Protocol Lactulose (Lactulose Liq) 30 ml PO DAILY PRN PRN Reason: SEVERE CONSITIPATION Magnesium Oxide (Mag-Ox) 800 mg PO UNSCH PRN PRN Reason: For Magnesium 1.2 - 1.6 mg/dL Miscellaneous Medication () 1 each OROPHARYNG 0000,0400,1200,1600 [facility] Pantoprazole Sodium (Protonix Inj) 40 mg IV.PUSH DAILY [facility] Pantoprazole Sodium (Protonix Inj) 40 mg IV.PUSH Q24H [facility] Potassium Bicarb/Potassium Chloride (K-Lyte Cl Eff) 50 meq PO UNSCH PRN PRN Reason: For Potassium 3.3 - 3.5 mEq/L Potassium Phosphate (K-Phos Original) 2,000 mg PO Q4H PRN PRN Reason: Phosphorus Less Than 2.5 mg/dL Potassium Phosphate (K-Phos Original) 2,000 mg PO UNSCH PRN PRN Reason: SEE LABEL COMMENTS Senna/Docusate Sodium (Heather-Colace) 1 tab PO BID [facility] Sennosides (Senokot) 17.2 mg PO Q12H PRN PRN Reason: Moderate Constipation Sodium Chloride (Ns Flush) 2 ml IV.FLUSH PRN PRN PRN Reason: FLUSH AFTER USING IV ACCESS Sodium Chloride (Ns Flush) 2 ml IV.FLUSH PRN PRN PRN Reason: FLUSH AFTER USING IV ACCESS Sodium Chloride (Ns Flush) 2 ml IV.FLUSH PRN PRN PRN Reason: FLUSH AFTER USING IV ACCESS Sodium Chloride (Ns Flush) 2 ml IV.FLUSH BID [facility] Terbutaline Sulfate (Brethine Inj) 1 mg SQ UNSCH PRN PRN Reason: For Extravasation Allergies Allergy/AdvReac Type Severity Reaction Status Date / Time No Allergy Information Allergy Unverified 06/17/18 16:11 Available Home Medications Medication Instructions Recorded Confirmed Type Unable to Obtain Home Meds 06/17/18 06/17/18 History Results - Labs CBC & Chem 7: 06/17/18 16:36 06/17/18 16:36 Labs: Short CBC 06/17/18 Range/Units 16:36 WBC 17.5 H (4.0-11.0) th/mm3 Hgb 9.5 L (13.0-17.0) gm/dL Hct 31.2 L (39.0-51.0) % Plt Count 572 H (150-450) th/mm3 BMP 06/17/18 16:36 Sodium 138 Potassium 4.6 Chloride 100 Carbon Dioxide 19.1 L BUN 21 H Creatinine 1.20 Calcium 8.5 Cardiac Enzymes 06/17/18 Range/Units 16:36 Troponin I 0.26 H (0.02-0.05) ng/mL Liver Function 06/17/18 Range/Units 16:36 Total Bilirubin 0.3 (0.2-1.0) mg/dL AST 32 (15-37) U/L ALT 20 (12-78) U/L Alkaline Phosphatase 94 (45-117) U/L Albumin 2.9 L (3.4-5.0) g/dL Urine 06/17/18 Range/Units 16:36 Urine Color Yellow (Yellw/Straw) Urine Clarity Cloudy H (Clear) Urine pH 5.0 (5.0-8.5) Ur Specific Fabius 1.011 (1.002-1.035) Urine Protein 100 H (Neg-Trace) mg/dL Urine Glucose (UA) Negative (Negative) mg/dL - Imaging Impressions Chest X-Ray 06/17/18 16:19 CONCLUSION: 1. Endotracheal tube in appropriate position with tip measuring 3.8 cm from the mecca. 2. Right basilar opacity with an appearance suggesting right lower lobe collapse. There is likely a trace right pleural fluid as well. These findings will be further characterized on the currently ordered chest CT. Head CT 06/17/18 16:19 CONCLUSION: 1. Negative CT Head non contrast other than known sinus surgery. . Cervical Spine CT 06/17/18 16:25 CONCLUSION: No acute cervical spine abnormality is identified. There is multilevel degenerative disc disease. Chest CT 06/17/18 16:25 CONCLUSION: 1. Near-complete collapse of the right lower lobe with a large mucous plug in the right lower lobe bronchus. There is quite dense material in the right lower lobe possible aspiration. The ET tube is in good position. The rest of the lungs are clear. There is a small pleural effusion Exam Vital signs: Vital Signs 06/17/18 16:03 06/17/18 16:11 06/17/18 16:12 Pulse Rate 165 H 178 H Respiratory Rate 12 18 18 Blood Pressure 180/109 H 161/111 H Pulse Oximetry 95 06/17/18 16:22 06/17/18 16:23 06/17/18 16:27 Pulse Rate 109 H 111 H Respiratory Rate 16 16 Blood Pressure 129/72 Pulse Oximetry 100 100 06/17/18 16:29 06/17/18 16:54 06/17/18 17:07 Pulse Rate 117 H 111 H Respiratory Rate 16 16 Blood Pressure 138/65 101/58 L Pulse Oximetry 100 100 99 06/17/18 17:15 Pulse Rate 101 H Respiratory Rate 16 Blood Pressure 95/59 L Pulse Oximetry 100 Intake & Output 06/17/18 06/17/18 06/18/18 06:59 18:59 06:59 Intake Total 1000 / 1000 Balance 1000 / 1000 Weight 61.235 kg Intake: IV 1000 / 1000 NS Inj 1,000 ML @ 500 mls/hr IV 1000 / 1000 .CONT .Q2H [facility] Rx#:[id number] - Constitutional no acute distress - Routine HEENT Exam Head: Present: normocephalic, atraumatic Eye: Present: EOMI, PERRL, normal accommodation ENT: Present: mucous membranes moist - Routine Neck Exam Present: supple, full ROM - Routine Chest/Breast/Axilla Exam Chest wall: Absent: tenderness Breast: Absent: tenderness Axillae: Absent: lymphadenopathy - Routine Respiratory Exam Present: patient mechanically ventilated, rhonchi, stridor. Absent: accessory muscle use - Routine Cardiovascular Exam Present: S1, S2, tachycardia, irregularly irregular - Routine Abdominal Exam Present: soft, normoactive bowel sounds - Routine Extremities Exam Present: edema. Absent: cyanosis, clubbing - Routine Skin Exam Present: intact - Routine Neurological Exam Present: CN II-XII intact. Absent: alert, oriented X3, sensory deficit Septic Shock Reassessment Septic shock perfusion: reassessment completed Caprini VTE Risk Assessment Caprini VTE Risk Assessment: Moderate/High Risk (score >= 2) VTE Pharmacological Exception Reason: Intracranial lesions Caprini Risk Assessment Model: Point Value = 1 Point Value = 2 Point Value = 3 Point Value = 5 Age 41-60 Minor surgery BMI > 25 kg/m2 Swollen legs Varicose veins or History of unexplained or recurrent spontaneous Oral contraceptives or hormone replacement Sepsis (< 1 month) Serious lung disease, including pneumonia (< 1 month) Abnormal pulmonary function Acute myocardial infarction Congestive heart failure (< 1 month) History of inflammatory bowel disease Medical patient at bed rest Age 61-74 Arthroscopic surgery Major open surgery (> 45 min) Laparoscopic surgery (> 45 min) Malignancy Confined to bed (> 72 hours) Immobilizing plaster cast Central venous access Age >= 75 History of VTE Family history of VTE Factor V Leiden Prothrombin [id number] Lupus anticoagulant Anticardiolipin antibodies Elevated serum homocysteine Heparin-induced thrombocytopenia Other congenital or acquired thrombophilia Stroke (< 1 month) Elective arthroplasty Hip, pelvis, or leg fracture Acute spinal cord injury (< 1 month) Prophylaxis Regimen: Total Risk Factor Score Risk Level Prophylaxis Regimen 0-1 Low Early ambulation 2 Moderate Order ONE of the following: *Sequential Compression Device (SCD) *Heparin 5000 units SQ BID 3-4 Higher Order ONE of the following medications: *Heparin 5000 units SQ TID *Enoxaparin/Lovenox 40 mg SQ daily (WT < 150 kg, CrCl > 30 mL/min) *Enoxaparin/Lovenox 30 mg SQ daily (WT < 150 kg, CrCl > 10-29 mL/min) *Enoxaparin/Lovenox 30 mg SQ BID (WT < 150 kg, CrCl > 30 mL/min) AND/OR *Sequential Compression Device (SCD) 5 or more Highest Order ONE of the following medications: *Heparin 5000 units SQ TID (Preferred with Epidurals) *Enoxaparin/Lovenox 40 mg SQ daily (WT < 150 kg, CrCl > 30 mL/min) *Enoxaparin/Lovenox 30 mg SQ daily (WT < 150 kg, CrCl > 10-29 mL/min) *Enoxaparin/Lovenox 30 mg SQ BID (WT < 150 kg, CrCl > 30 mL/min) AND *Sequential Compression Device (SCD) Assessment and Plan - Assessment and Plan Plan: Neuro/Psych: Acute seizure History of stage III brain cancer question berny MRI brain has been ordered. Seizure precautions Goal of RASS -2 Daily sedation vacation Loaded with levetiracetam 1 g in ED. Current 500 mg twice daily EEG ordered. CV: Atrial fibrillation with rapid ventricular response Acute hypotension Lactic acidosis Phenylephrine drip to maintain mean artery pressure equal to 65 Received normal saline bolus x1 now. 1 L. Cycle troponin. Initially 0.26. 2D echocardiogram ordered. Cycle lactates until cleared. Resp: Acute hypoxic hypercapnic respiratory failure secondary aspiration PRVC Ventilation butyryl/ipratropium aerosols every 4 hours albuterol every 2 as needed dyspnea Ventilator bundle Spontaneous breathing trials when clinically indicated CT chest revealed significant right-sided infiltrate with secretions. Might need bronchoscopy later on tonight. GI: N.p.o. status NG tube to low intermittent wall suction Pantoprazole for GI prophylaxis Docusate sodium/senna 1 tablet bid for [place]. CT emesis of revealed moderate ascites. : Straight catheterization as needed Endo: Sliding scale insulin Accu-Cheks to maintain euglycemia aspart insulin every 6 hours TSH Renal: Monitor urine output Accurate I's and O's Heme: History of brain lung cancer Elevated platelets Leukocytosis, Normocytic anemia Patient currently has a Neulasta patch on. Dr. Farah? Is his radiation oncologist. Monitor CBC daily. Follow trends. ID: Currently vancomycin, aztreonam and metronidazole since allergy status unknown Blood cultures x2, sputum ordered MSK: Physical Therapy evaluate and treat FEN: Replace electrolytes as clinically indicated Access -Utilize peripheral IV. Central line if indicated Prophylaxis -GI-Pantoprazole -DVT -SCD/holding pharmacologic fracture of the brain masses Critical care time 35 minutes
[2018-06-17] MEDS ORDERED: RASS Change Order OTHER ONE (20:00)
[2018-06-17] MEDS: Propofol 1000 mg/100 ml Inj 1,000 MG/100 ML BOTTLE IV.CONT PRN (20:44)
--- NOTE | 2018-06-17 21:06 | XR ---
EXAM DATE: 06/17/2018 8:54 PM EDT AGE/SEX: 89 years / Male INDICATIONS: Post re-intubation CLINICAL DATA: This is the patient's initial encounter. Patient reports that signs and symptoms have been present for 1 day and indicates a pain score of Nonresponsive. MEDICAL/SURGICAL HISTORY: Non-responsive. Non-responsive. COMPARISON: [facility] [place] 1V SINGLE AP, 06/17/2018. . FINDINGS: The patient is intubated with the tip of ET tube 4.5 cm from the mecca. This is in good position. Th e NG tube is directed into the stomach. There is a CT compatible Vehomo-r-Cncn in place on the right side with tip overlying the upper aspect of the right atrium. The heart size is normal. There is incr eased density seen throughout much of the right lung. There is increased interstitial markings seen i n the left perihilar and left upper lobe. There is a at least mild right effusion. CONCLUSION: ET tube in good position. There is mild right pleural effusion. Increased interstitial markings likely related to edema. There is some further alveolar consolidation or atelectasis in the right lung. Electronically signed by: Dheeraj Ybarra MD 06/17/2018 9:04 PM EDT
[2018-06-17 21:08] LABS: ABG Base Excess -4.8 mmol/L (-2-2); ABG PCO2 61 mmHg (38-42); ABG PO2 93 mmHg (61-120)
[2018-06-17 21:20] LABS: Creatine Kinase 94 U/L (39-308)
--- NOTE | 2018-06-17 21:35 | CT ---
EXAM DATE: 06/17/2018 9:26 PM EDT AGE/SEX: 89 years / Male INDICATIONS: Abdominal pain, evaluate for neoplasm. CLINICAL DATA: This is the patient's initial encounter. Patient reports that signs and symptoms have been present for 1 day and indicates a pain score of Nonresponsive. MEDICAL/SURGICAL HISTORY: Carcinoma, lung. Brain cancer. Non-responsive. ORAL CONTRAST: No oral contrast ingested. RADIATION DOSE: 5.13 CTDI (mGy) ; Combined studies COMPARISON: No prior exams available for comparison. TECHNIQUE: Multiple contiguous axial images were obtained through the abdomen and pelvis following b olus infusion of 65 ml Omnipaque 350 (iohexol) nonionic water-soluble contrast as a cumulative dose for multiple exams. No oral contrast ingested. Using automated exposure control and adjustment of t he mA and/or kV according to patient size, radiation dose was kept as low as reasonably achievable to obtain optimal diagnostic quality images. DICOM format image data is available electronically for r eview and comparison. FINDINGS: There is a small right-sided pleural effusion and dense consolidation right lower lobe with mucoid pl ugging of segmental right lower lobe bronchi and some dense material in the right lower lobe, possibl y aspiration. NG is in the stomach. There is diffuse moderate anasarca and some periportal edema in the liver. Mild ascites. No acute findings in the spleen, adrenals, kidneys or pancreas. There is some pericholecystic fluid. No calcified gallstones. No biliary ductal dilatation. There is mild constipation. Kennedy catheter present in the bladder. No acute bony abnormalities. Moder ate atherosclerotic disease in the aorta and branches without aneurysm. CONCLUSION: 1. Moderate anasarca and mild ascites in the abdomen and pelvis with periportal edema and some peric holecystic fluid. 2. Dense consolidation and mucoid plugging in the right lower lobe with small right effusion. Patchy groundglass airspace disease in both lower lobes as well, probably infectious or post aspiration in nature. 3. Moderate anasarca. Kennedy catheter in bladder. Electronically signed by: Wally Baires MD 06/17/2018 9:34 PM EDT
--- NOTE | 2018-06-17 21:41 | CT ---
EXAM DATE: 06/17/2018 9:35 PM EDT AGE/SEX: 89 years / Male INDICATIONS: Patient found unresponsive, laceration to nose. CLINICAL DATA: This is the patient's initial encounter. Patient reports that signs and symptoms have been present for 1 day and indicates a pain score of Nonresponsive. MEDICAL/SURGICAL HISTORY: Carcinoma, lung. Carcinoma, brain. Non-responsive. RADIATION DOSE: 29.28 CTDI (mGy) COMPARISON: No prior exams available for comparison. TECHNIQUE: Contiguous images in the axial and coronal planes were obtained using helical multirow de tector technique with 45 ml Omnipaque 350 (iohexol) nonionic water-soluble contrast as a single exam dose. Using automated exposure control and adjustment of the mA and/or kV according to patient size , radiation dose was kept as low as reasonably achievable to obtain optimal diagnostic quality images . DICOM format image data is available electronically for review and comparison. FINDINGS: There is mucosal thickening and partial opacification of the frontal sinus, ethmoid air cells and lef t maxillary sinus with previous sinus surgery. No acute facial bone fractures identified. Temporomand ibular joints intact. Patient is intubated. CONCLUSION: 1. No acute facial bone fracture. Mucosal thickening in the paranasal sinuses with previous sinus hui rgery. Electronically signed by: Wally Baires MD 06/17/2018 9:40 PM EDT
--- NOTE | 2018-06-17 21:42 | CT ---
EXAM DATE: 06/17/2018 9:26 PM EDT AGE/SEX: 89 years / Male INDICATIONS: Shortness of breath, evaluate for neoplasm. CLINICAL DATA: This is the patient's initial encounter. Patient reports that signs and symptoms have been present for 1 day and indicates a pain score of Nonresponsive. MEDICAL/SURGICAL HISTORY: Carcinoma, lung. Brain cancer. Non-responsive. RADIATION DOSE: 5.13 CTDI (mGy) ; Combined studies COMPARISON: [facility] – [place], [place] CHEST W/O CONTRAST, 06/17/2018. . TECHNIQUE: Multiple contiguous axial images were obtained through the chest during bolus infusion of 65 ml Omnipaque 350 (iohexol) nonionic water-soluble contrast as a cumulative dose for multiple exa ms. Images were obtained in suspended respiration using multiple row detector helical technique. U sing automated exposure control and adjustment of the mA and/or kV according to patient size, radiati on dose was kept as low as reasonably achievable to obtain optimal diagnostic quality images. DICOM format image data is available electronically for review and comparison. FINDINGS: Lungs: There is increased density seen throughout the right lower lobe. Much of this is likely secon vik to consolidation. Some this appears to contain hyperdense material which may be related to calci fication or aspirated material. At the posterior medial aspect of the increased density in the right lower lobe, this area abuts the posterior right pericardium. It appears to obliterate the epicardial fat. It appears to abut the right side of the left atrium. The pulmonary veins draining the right low er lobe is not seen. These findings raise the possibility of a neoplasm in this region. However, this is nonspecific. The patient could be further evaluated with a PET FDG study. In addition, there is increased alveolar density seen throughout the right upper lung likely related to consolidation. There is minimal patchy density seen at the posterior left upper lobe, lateral mid portion of the left upper lobe, and posterior aspect of the superior segment left lower lobe. There i s more dense alveolar consolidation seen at the inferior lateral left lower lobe. Mediastinum: There is a 2.8 cm round area seen in the right lateral epicardial posterior to the atri al septum concerning for possible adenopathy. This is low density centrally which may represent necro sis. Lymph nodes which appear normal in size in the right paratracheal region and precarinal regions. There is increased soft tissue density subcarinal region. The patient is intubated. There is an NG tube in place. Pleurae: There is a mild right pleural effusion. Axillae: Unremarkable. Bony Structures: There appear to be deformity from prior rib fractures. Miscellaneous: The examination was extended to include the upper abdomen, and both adrenal glands ar e normal in size and configuration. CONCLUSION: 1. Dense consolidation involving the right lower lobe with obliteration of the right epicardial fat concerning for possible neoplasm in this region. There also is possible adenopathy in the right epica rdial space. The patient could be further evaluated with PET FDG study. 2. Alveolar consolidation in the right upper lobe, left upper lobe, and left lower lobe likely relat ed to underlying consolidation/bronchopneumonia. Electronically signed by: Dhereaj Ybarra MD 06/17/2018 9:40 PM EDT
[2018-06-17] MEDS ORDERED: Vancomycin Consult Pharmacy OTHER PRN (22:20)
--- NOTE | 2018-06-17 23:20 | P.PCN ---
Date of procedure: 06/17/18 Pre-op diagnosis: Hypotension Post-op diagnosis: same Procedure: DATE: 06/17/2018 CENTRAL LINE PLACEMENT: Left internal vein. Ultrasound-guided INDICATION: Central venous access CONSENT Informed consent for procedure was emerged. Family unavailable. DESCRIPTION OF THE PROCEDURE The patient was placed in supine position. The skin was cleansed with Chloraprep. Additional barrier precautions included large sterile drape, sterile gloves, sterile gown, face mask, and hat. 1 % lidocaine was used for local anesthesia. Under direct ultrasound guidance and on initial attempt, the vein was accessed with an introducer needle. The guide wire was advanced and the tract was dilated. Using Seldinger technique a 7 Urdu 20 cm antimicrobial coated triple-lumen catheter was advanced to a depth of 20 centimeters. The guide wire was removed. All ports had good return of dark venous blood and flushed easily with saline. The central line was secured with 2.0 silk. StatLock do not adhere to skin. A sterile dressing with antibiotic disc was applied. ESTIMATED BLOOD LOSS: Minimal COMPLICATIONS: No apparent complications. STAT chest x-ray pending at time of dictation
[2018-06-17] MEDS: fentaNYL 10 mcg/mL Premix Drip 2,500 MCG/250 ML BAG IV.SIG PRN (23:42)
--- NOTE | 2018-06-18 | XR ---
EXAM DATE: 06/17/2018 11:55 PM EDT AGE/SEX: 89 years / Male INDICATIONS: Central line placement. Left internal jugular. CLINICAL DATA: This is the patient's subsequent encounter. Patient reports that signs and symptoms h ave been present for 1 day and indicates a pain score of Nonresponsive. MEDICAL/SURGICAL HISTORY: Non-responsive. Non-responsive. COMPARISON: [facility], CHEST 1V SINGLE AP, 06/17/2018. . FINDINGS: Left neck central line is present descending to SVC. There is no evidence of pneumothorax or other co mplication of placement. Endotracheal tube nasogastric tube and right chest port are unchanged. Diffu se pleural-parenchymal opacity on the right has shown slight interval increase in confluence. Patchy infiltrates on the left are unchanged. Cardiac contours are stable. CONCLUSION: Left jugular central line placement without complication Slight interval worsening in right lung pleural-parenchymal changes Electronically signed by: Dheeraj Roth MD 06/17/2018 11:58 PM EDT
[2018-06-18] MEDS: metroNIDAZOLE 500 MG Tablet PO SCH ×4 (00:42→22:02)
[2018-06-18] MEDS: Aztreonam Inj 2 GM in Sodium Chloride 0.9% Inj 100 ML IV.SIG SCH ×4 (00:56→22:05)
[2018-06-18] MEDS: Heparin - SQ 10,000 UNITS/ML Vial SQ SCH ×3 (01:19→22:05)
[2018-06-18] MEDS: Chlorhexidine 0.12% Oral Kit 15 ML UDC OROPHARYNG SCH ×3 (01:20→22:07)
[2018-06-18] MEDS: Insulin NovoLOG Aspart Correctional Sugar Inj SQ SCH ×3 (01:20→11:39)
[2018-06-18] MEDS: Senna/Docusate Sodium 8.6/50 MG Tablet PO SCH ×3 (01:20→22:07)
[2018-06-18] MEDS: Pantoprazole Inj 40 MG Vial IV.PUSH SCH ×2 (01:20→22:06)
[2018-06-18] MEDS: Oral Hygiene Kit OROPHARYNG SCH ×4 (01:21→20:40)
[2018-06-18] MEDS: Sod Chloride 0.9% Inj 1,000 ML IV.CONT SCH ×3 (01:25→22:03)
[2018-06-18] MEDS ORDERED: Chlorhexidine Gluconate 2% 1 Pack (2 Cloths) TOPICAL PRN (04:00)
[2018-06-18] MEDS ORDERED: Midazolam Inj 5 MG/ML 1 ML Vial ONE (04:04)
[2018-06-18] MEDS: Chlorhexidine Gluconate 2% 1 Pack (2 Cloths) TOPICAL SCH (04:13)
[2018-06-18] MEDS ORDERED: dilTIAZem Inj 125 MG in Sodium Chlor 0.9% Inj 100 ML IV.CONT PRN (04:31)
--- NOTE | 2018-06-18 04:31 | P.PCN ---
Date of procedure: 06/18/18 Pre-op diagnosis: Acute respiratory failure Post-op diagnosis: same Procedure: DATE: 06/18/2018 Bronchoscopy/diagnostic and therapeutic INDICATION: Acute respiratory failure CONSENT Informed consent for procedure was done obtaining considered emergent due to high oxygen requirements DESCRIPTION OF THE PROCEDURE The patient was placed in supine position. Patient was on CT VC in relation 100% FiO2. PEEP of 8. Patient received 5 mg of midazolam. 50 mg rocuronium. Was on fentanyl drip at 200 mg now. I entered the 7.5 ET tube with the Olympic bronchoscope. The mecca was sharp. Mucosa normal. No mass identified. Thick whitish mucus mucosal/secretions and plugs were placed in the right upper , middle and lower lobes. These were lavaged until cleared. Lukens trap was placed in 30 cc of sterile water was placed with return. Sent for sample see orders. Scope was withdrawn to the mecca. Evaluated the left upper/lingula and lower lobes. Thick whitish mucous plugs were identified. These were lavaged until cleared. Patient tolerated procedure well. COMPLICATIONS: No apparent complications. STAT chest x-ray pending at time of dictation
[2018-06-18 05:07] LABS: Baso % (Auto) 0.2 % (0.0-2.0); Eos % (Auto) 0.1 % (0.0-4.0); Hematocrit 25.2 % (39.0-51.0); Lymph # (Auto) 2.4 th/mm3 (1.0-4.8); Lymph % (Auto) 12.3 % (9.0-44.0); Mean Corpuscular HGB Conc 31.8 % (32.0-36.0); Mean Platelet Volume 7.2 fL (7.0-11.0); Mono # (Auto) 0.4 th/mm3 (0.0-0.9); Mono % (Auto) 2.4 % (0.0-8.0); Neut # (Auto) 16.2 th/mm3 (1.8-7.7); Platelet Count 385 th/mm3 (150-450); Red Blood Count 2.77 mil/mm3 (4.50-5.90); White Blood Count 19.1 th/mm3 (4.0-11.0)
--- NOTE | 2018-06-18 05:07 | XR ---
EXAM DATE: 06/18/2018 4:55 AM EDT AGE/SEX: 89 years / Male INDICATIONS: Post bronchoscopy, possible pneumothorax. CLINICAL DATA: This is the patient's subsequent encounter. Patient reports that signs and symptoms h ave been present for 2 days and indicates a pain score of Nonresponsive. MEDICAL/SURGICAL HISTORY: Non-responsive. Non-responsive. COMPARISON: [facility], CHEST 1V SINGLE AP, 06/17/2018. . FINDINGS: Endotracheal tube, nasogastric tube, chest port and left neck central line are stable. No evidence of pneumothorax. Slight improvement in right lung aeration. Cardiac contours are unchanged. CONCLUSION: Slightly improved aeration. No pneumothorax. Electronically signed by: Dheeraj Roth MD 06/18/2018 5:05 AM EDT
[2018-06-18 05:11] LABS: Activated Partial Thrombo Time 27.5 sec (23.4-31.7); INR 1.2 Ratio; Prothrombin Time 11.7 sec (9.8-11.6)
[2018-06-18 05:37] LABS: ABG Base Excess -1.6 mmol/L (-2-2); ABG PCO2 34 mmHg (38-42); ABG PO2 459 mmHG (61-120)
[2018-06-18 05:45] LABS: Albumin 2.2 g/dL (3.4-5.0); Calcium 7.3 mg/dL (8.5-10.1); Carbon Dioxide 24.5 meq/L (21.0-32.0); Magnesium 1.7 mg/dL (1.5-2.5); Potassium 4.2 meq/L (3.5-5.1)
[2018-06-18 05:52] LABS: Total Protein 5.5 g/dL (6.4-8.2); Troponin I 0.28 ng/mL (0.02-0.05)
--- NOTE | 2018-06-18 07:47 | P.PNCC ---
Subjective Subjective Remarks/Hospital Course: Hospital Course: This is a male. Unknown age. Date of admission 06/17/2018. Past medical history includes brain cancer stage III according to brother, lung cancer presents to [facility] with acute onset of altered mental status. While at home today, this patient suddenly fell face down at home, had seizure episode. When EMS came the treated him with Versed, patient was brought to emergency room unconscious, sedated. His saturation was 88-90 on room air, as per EMS patient brother ask to save his life, at this time patient is full code. IV line placed, patient was intubated, placed on ventilation machine. Pupils are 3 mm equal sluggish. Has abrasion over his forehead and bridge of the nose. There is significant rhonchi bilateral during auscultation. Heart rate is 170, rapid A. fib on EKG. Patient treated with Cardizem. Patient did self extubate was reintubated due to similar findings. CT brain no acute findings. CT C-spine no acute findings. CT abdomen/pelvis revealed ascites. In discussion with brother, patient has stage III of brain cancer/lung cancer but had "improved somewhat over the past month. He wishes him to be full code at the present time. His name is been lost to him at the present time however. Subjective: 06/18: By EMS records: Patient has been identified as Lorenzo Mendez ( 1955) . Patient has been recently admitted back in 2017 for pneumonia and before that in 02/2018. in February, the patient named Bhavin Dinero ([phone]) as his healthcare surrogate (best friend). I talked with Mr. Dinero and updated him about his condition and his overall poor prognosis. He is going to call the remainder of Mr. Mendez family today and will get back with me. Patient is now hypotensive and we are starting vasopressors. he is also in afib RVR requiring amiodarone. no improvements in his clinical status. required emergent bronch overnight for worsening aeration and mucous plugging. ROS unobtainable from the patient. Objective Vital Signs / I&O: Vital Signs 06/17/18 16:03 06/17/18 16:11 06/17/18 16:12 Temperature Pulse Rate 165 H 178 H Respiratory Rate 12 18 18 Blood Pressure 180/109 H 161/111 H Pulse Oximetry 95 06/17/18 16:22 06/17/18 16:23 06/17/18 16:27 Temperature Pulse Rate 109 H 111 H Respiratory Rate 16 16 Blood Pressure 129/72 Pulse Oximetry 100 100 06/17/18 16:29 06/17/18 16:54 06/17/18 17:07 Temperature Pulse Rate 117 H 111 H Respiratory Rate 16 16 Blood Pressure 138/65 101/58 L Pulse Oximetry 100 100 99 06/17/18 17:15 06/17/18 19:40 06/17/18 20:57 Temperature Pulse Rate 101 H 175 H 122 H Respiratory Rate 16 26 H 20 Blood Pressure 95/59 L 132/76 Pulse Oximetry 100 97 06/17/18 22:21 06/17/18 22:27 06/17/18 23:48 Temperature 37.0 C Pulse Rate 121 H 107 H 120 H Respiratory Rate 21 20 20 Blood Pressure 139/60 Pulse Oximetry 96 97 06/18/18 00:00 06/18/18 04:00 06/18/18 04:29 Temperature 37.1 C 37.2 C Pulse Rate 130 H 138 H 111 H Respiratory Rate 20 20 20 Blood Pressure 111/71 107/56 L Pulse Oximetry 96 98 06/18/18 04:45 06/18/18 04:46 Temperature Pulse Rate Respiratory Rate 16 Blood Pressure Pulse Oximetry 97 98 Intake & Output 06/17/18 06/18/18 06/18/18 18:59 06:59 18:59 Intake Total 2049 2456 / 2456 Output Total 1999 Balance 2049 456 / 456 Weight 61.235 kg 54.5 kg Intake: IV 2049 2456 / 2456 Diprivan 1000 mg/100 ml Inj 1, 6 / 6 000 mg In 100 ml @ 5 MCG/KG/MIN 1.837 mls/hr IV.CONT TITRATE PRN Rx#:[id number] NS Inj 1,000 ML @ 84 mls/hr IV. 1000 / 1000 1000 / 1000 CONT .[id number] [facility] Rx#:[id number] Azactam Inj 2 GM In NS Inj 100 200 / 200 ML @ 200 mls/hr IV.SIG Q8H [facility] Rx#:[id number] Zosyn 3.375 GM Premix 50 ML @ 50 / 50 100 mls/hr IV.SIG ONCE ONE Rx#: [id number] NS Inj 1,000 ML @ 2000 mls/hr 1000 / 1000 1000 / 1000 IV.SIG Q30M [facility] Rx#:[id number] Vancomycin Inj 1,000 MG In NS 250 / 250 Inj 250 ML @ 250 mls/hr IV.SIG ONCE ONE Rx#:[id number] Output: Urine Amount (Catheter) 1999 Coude 1999 Other: # Bowel Movements 0 Weight On Admission 53.5 kg Result Diagrams: 06/18/18 04:44 06/18/18 04:44 Objective Remarks: GENERAL: Frail middle-aged male who appears older than stated age, lying in bed , intubated, unresponsive HEENT: Normocephalic. Atraumatic. Pupils equal, round, reactive, conjugate. Mucous membranes are moist NECK: Trachea is midline. There is no JVD. CHEST: Equal chest rise. PRVC. 50% FiO2. PEEP of 10. CARDIOVASCULAR: Tachycardic rate in the 150s, irregularly irregular rhythm. Hypotensive systolics in the 70s, starting phenylephrine infusion. ABDOMEN: Soft, nontender, nondistended. No guarding. MUSCULOSKELETAL: Pulses 2+. No peripheral edema. NEUROLOGICAL: RASS -3. Does withdraw to pain x4. Does not follow commands. Assessment and Plan - Assessment and Plan Plan: Assessment: 62yM with stage IV small cell lung cancer with known mets to the brain who presents after seizure and has acute hypoxic respiratory failure and pneumonia, complicated by organ failure and septic shock. Very critically ill. overall prognosis quite poor. Healthcare surrogate Bhavin Dinero has been updated. he wishes to continue FULL CODE and aggressive care at this time, but will notify the rest of the family regarding his poor prognosis. Will re-engaged palliative care. remains very critically ill today and worse than yesterday. Neuro/Psych: Acute seizure History of brain metastates Acute metabolic encephalopathy MRI brain has been ordered- still pending Seizure precautions Goal of RASS -2 Daily sedation vacation Loaded with levetiracetam 1 g in ED. Current 500 mg twice daily EEG ordered. CV: Atrial fibrillation with rapid ventricular response Septic Shock Lactic acidosis Elevated Troponin Type II NSTEMI secondary to demand ischemia Phenylephrine drip to maintain map > 65mmHg amiodarone load and drip trop 0.26-->0.28 unlikely to be ACS. likely type 2 demand ischemia secondary to sepsis and afib tachycardia. will not anticoagulate: brain mets. 2D echocardiogram ordered. Cycle lactates until cleared. Resp: Acute hypoxic hypercapnic respiratory failure secondary aspiration PRVC increase PEEP to 10 wean fio2 for goal spo2 > 90% vent bundle nebs no sbt until mental status improves and shock improves. CT chest revealed significant right-sided infiltrate with secretions. s/p bronch 06/17: thick white secretions GI: Acute protein calorie malnutrition- severe N.p.o. status NGT to LIWS NPO while in shock Pantoprazole for GI prophylaxis Docusate sodium/senna 1 tablet bid for [place]. CT abd/pelvis revealed moderate ascites. : Straight catheterization as needed no indication for hill Endo: Sliding scale insulin Accu-Cheks to maintain euglycemia aspart insulin every 6 hours TSH Renal: Monitor urine output Accurate I's and O's Heme: stage IV Lung cancer with brain mets Elevated platelets Leukocytosis, Normocytic anemia Patient currently has a Neulasta patch on. Dr. Herrera his primary oncologist consult oncology to follow along Monitor CBC daily. Follow trends. ID: Aspiration pneumonia Currently vancomycin, aztreonam and metronidazole since allergy status unknown Blood cultures x2, sputum ordered MSK: Physical Therapy evaluate and treat FEN: Hypomagnesemia Replace electrolytes as clinically indicated Access -Utilize peripheral IV. 06/18 CVL Prophylaxis -GI-Pantoprazole -DVT -SCD/holding pharmacologic DVT prophylaxis in the setting of the brain masses This patient remains critically ill with one or more organ systems which are or may become a threat to life. I have spent in excess of 51 minutes discontinuously in the care and management of this patient. This time is exclusive of procedures, and includes, but is not limited to, evaluation of the patient, review of the medical record, discussions with family, consultants, nursing staff, or respiratory therapy, and documentation in the medical record.
[2018-06-18] MEDS ORDERED: Amiodarone Inj 150 MG in Dextrose 5% in Water Inj 97 ML IV.SIG ONE ×4 (08:00→16:00)
[2018-06-18] MEDS ORDERED: Magnesium Sulfate Inj 4 GM in Sodium Chlor 0.9% Inj 92 ML IV.SIG ONE (08:00)
[2018-06-18] MEDS ORDERED: Pantoprazole Inj 40 MG Vial IV.PUSH SCH (09:00)
[2018-06-18] MEDS: Vancomycin Inj 1,000 MG in Sodium Chlor 0.9% Inj 250 ML IV.SIG SCH ×2 (10:42→22:06)
[2018-06-18] MEDS: fentaNYL 10 mcg/mL Premix Drip 2,500 MCG/250 ML BAG IV.SIG PRN ×2 (12:40→22:41)
[2018-06-18] MEDS ORDERED: Digoxin Inj 500 MCG/2 ML Ampul IV.PUSH ONE (15:00)
--- NOTE | 2018-06-18 19:23 | MB ---
cc: Mary Murphy MD,Beto Lindo MD DATE: 06/18/2018 REFERRING PHYSICIAN: Dr. Beto Mas CHIEF COMPLAINT: Dr. Mas requests a consultation for Mr. Mendez regarding a metastatic non-small cell lung cancer with patient found down. HISTORY OF PRESENT ILLNESS: Mr. Mendez is a 62-year-old man with history of atrial fibrillation, rate controlled, hepatitis C, well known patient to Dr. Sb Herrera. He presented with postobstructive pneumonia and was subsequently diagnosed with metastatic small cell lung cancer. He has multiple pleural and subpleural nodules of the right lung consistent with metastatic disease. MRI of the brain showed an 8 mm mass in his soft ependymal region posterior horn of the left lateral ventricle. He was treated with stereotactic radiation therapy for his brain lesion. He received systemic therapy for his small cell lung cancer with carboplatin and etoposide. His last chemotherapy was 06/17/2018. He had been rather noncompliant with his followup and therapy regimen. He was last seen by Dr. Herrera on 06/14/2018 prior to the start of his chemotherapy. He apparently was feeling well and was planning a trip with his neighbor. His a neighbor, Mr. Bhavin Dinero, was called to supplement his history. Apparently, Mr. Mendez was well 10 minutes prior and when Mr. Dinero returned Mr. Mendez had fallen on the floor face down. He called the ambulance and brought Mr. Mendez into the hospital immediately. In the emergency room, he was unconscious. His saturation was 88% to 90%. He was intubated and placed on mechanical ventilatory support. His heart rate at the time was rapid at 170. He was started on Cardizem. He was transferred to the care of Dr. Mas. Hematology/Oncology is consulted regarding further management of patient with non-small cell lung cancer with acute mental status change. No history could be obtained from Mr. Mendez. He was sedated and intubated. The history was obtained from Mr. Dinero as to the events immediately prior to coming in. He apparently was well. A CT scan of the abdomen shows moderate anasarca with mild ascites in the abdomen. There is dense consolidation in the right lower lobe. CT scan of the head was negative. CT of the face showed no acute facial bone fracture. There is mucosal thickening of the paranasal sinuses. PAST MEDICAL HISTORY: Back pain, cardiovascular disease, COPD, emphysema, atrial fibrillation, metastatic small cell lung cancer. PAST SURGICAL HISTORY: Left lower extremity metal rods, left lower extremity ORIF, port placement, lung biopsy, bronchoscopy hernia repair. ALLERGIES: NO KNOWN DRUG ALLERGIES. FAMILY HISTORY: No significant family history of cancer. SOCIAL HISTORY: He has a 54-eeds-sfia smoking history. He drinks occasionally. He consumes alcohol 3 days a week. He quit smoking. He denies any illicit drug use. ALLERGIES: NO KNOWN DRUG ALLERGIES. MEDICATIONS FROM HOME: 1. Docusate. 2. Meloxicam. 3. Metoprolol. 4. Roxicodone. 5. Morphine sulfate. CURRENT MEDICATIONS: 1. DuoNebs. 2. Amiodarone. 3. Aztreonam. 4. Chlorhexidine. 5. Fentanyl. 6. Heparin. 7. Keppra. 8. Flagyl. 9. Propofol. 10. Heather-Colace. 11. Normal saline. 12. Vancomycin. PHYSICAL EXAMINATION: VITAL SIGNS: Temperature 99.4, heart rate 116, respiratory rate 20, blood pressure 120/59, saturation 97%. GENERAL: Mr. Mendez is a well-developed, slender man. He is sedated and intubated. He has alopecia. He has good air entry bilaterally. HEENT: His pupils are small and reactive. Oropharyngeal intubation. NECK: Supple. CARDIOVASCULAR: Reveals a mild tachycardia. ABDOMEN: Mildly distended. LOWER EXTREMITIES: No edema. NEUROLOGIC: Unable to cooperate for neurological exam. LABORATORY DATA: WBC 19.1, hemoglobin 8.0, platelet count 385. ASSESSMENT AND PLAN: Mr. Mendez is a 62-year-old man with multiple medical problems described above. He has a history of metastatic small cell lung cancer with some noncompliance with his therapy. He started to feel well and was not compliant with his followup. He was seen by Dr. Herrera in 06/14/2018 to coordinate his most recent chemotherapy. On 06/15/2018, he received his carboplatin and etoposide. On 06/16/2018 he received his etoposide. On 06/17/2018, he received day 3 of etoposide. Noted that his blood pressure was decent, but was tachycardic during the last several days. He was found down with atrial fibrillation, rapid ventricular response. He has not been on an anticoagulant therapy. Acute event will need to be excluded. Neurology will be consulted. He is under care of the kier drier and is having his rate controlled. We will need to initiate anticoagulant therapy. His CT of the head was negative for bleed. He is also at increased risk for venous thromboembolic event. He received his chemotherapy and the on body injector placed on 06/17/2018. We will need to confirm that the on body injector actually delivered the Neulasta support since he is at risk for neutropenia after the chemotherapy. Ultimately he will need an MRI to rule out central nervous system metastatic disease. He had 1 lesion that was treated by Dr. Lund. He has not had repeat imaging study. Mr. Dinero was called to complement his history described above. His questions were answered to his satisfaction. MD ERIN Mullins/yessi , 05:33 PM , 05:46 PM
[2018-06-18] MEDS ORDERED: Gadobutrol PF 7.5 MMOL/7.5 ML Vial (for RAD) IV.SIG ONE (20:38)
[2018-06-18] MEDS: Insulin NovoLIN Regular Correctional Sugar Inj SQ SCH (20:42)
--- NOTE | 2018-06-18 21:16 | MR ---
EXAM DATE: 06/18/2018 9:02 PM EDT AGE/SEX: 62 years / Male INDICATIONS: Metastatic disease. CVA. Seizure. CLINICAL DATA: This is the patient's initial encounter. Patient reports that signs and symptoms have been present for 1 day and indicates a pain score of 0/10. MEDICAL/SURGICAL HISTORY: Carcinoma, lung. Metastatic disease. . ORIF leg. Port placement. COMPARISON: [facility] [place]/O CONTRAST, 06/17/2018. [facility] [place], [place] HEAD W & W/O CONTRAST, 03/02/2018. . TECHNIQUE: Multiplanar, multisequence examination of the brain was performed without and with 5 ml Ga davist (gadobutrol) contrast as a single exam dose. FINDINGS: Subcortical metastatic lesions are seen measuring 7 mm of the left frontal lobe and 8 mm of the left parietal lobe, series 13 images 104 and 136, respectively. Each lesion has mild surrounding cerebral edema. No midline shift. No other lesions are demonstrated. Specifically, previously seen subependyma l lesion of the posterior horn of the left lateral ventricle is no longer perceptible. There is also currently no evidence of acute or subacute infarct. No bleed. There is mucoperiosteal thickening again seen diffusely of the paranasal sinuses. CONCLUSION: 1. Small subcortical metastatic lesions have developed, one of the left frontal lobe and one of the left parietal lobe. 2. Previously seen subependymal lesion of the left lateral ventricle posterior horn is no longer per ceptible. 3. No bleed or acute/subacute infarct. 4. Chronic pansinusitis. Electronically signed by: Dheeraj Stratton MD 06/18/2018 9:14 PM EDT
[2018-06-19] MEDS: Insulin NovoLIN Regular Correctional Sugar Inj SQ SCH ×5 (00:57→23:49)
[2018-06-19] MEDS: Oral Hygiene Kit OROPHARYNG SCH ×5 (00:58→23:49)
[2018-06-19] MEDS: metroNIDAZOLE 500 MG Tablet PO SCH ×5 (01:00→23:44)
[2018-06-19] MEDS: Propofol 1000 mg/100 ml Inj 1,000 MG/100 ML BOTTLE IV.CONT PRN (01:00)
[2018-06-19] MEDS: fentaNYL 10 mcg/mL Premix Drip 2,500 MCG/250 ML BAG IV.SIG PRN ×2 (04:08→13:47)
[2018-06-19] MEDS: Chlorhexidine Gluconate 2% 1 Pack (2 Cloths) TOPICAL SCH (04:12)
[2018-06-19 05:14] LABS: Hematocrit 24.8 % (39.0-51.0); Hemoglobin 7.9 gm/dL (13.0-17.0); Mean Corpuscular HGB Conc 31.7 % (32.0-36.0); Mean Corpuscular Hemoglobin 29.3 pg (27.0-34.0); Mean Corpuscular Volume 92.6 fL (80.0-100.0); Mean Platelet Volume 7.2 fL (7.0-11.0); Platelet Count 335 th/mm3 (150-450); Red Blood Count 2.68 mil/mm3 (4.50-5.90); Red Cell Distribution Width 24.1 % (11.6-17.2)
[2018-06-19 05:25] LABS: INR 1.3 Ratio; Prothrombin Time 13.1 sec (9.8-11.6)
[2018-06-19 05:44] LABS: ABG Base Excess -2.1 mmol/L (-2-2); ABG PCO2 32 mmHg (38-42); ABG PO2 169 mmHG (61-120)
[2018-06-19] MEDS: Aztreonam Inj 2 GM in Sodium Chloride 0.9% Inj 100 ML IV.SIG SCH ×3 (06:04→23:44)
[2018-06-19] MEDS: Sod Chloride 0.9% Inj 1,000 ML IV.CONT SCH ×2 (06:04→19:44)
--- NOTE | 2018-06-19 06:06 | XR ---
EXAM DATE: 06/19/2018 5:54 AM EST AGE/SEX: 62 years / Male INDICATIONS: Respiratory status. CLINICAL DATA: This is the patient's subsequent encounter. Patient reports that signs and symptoms h ave been present for 4 - 6 days and indicates a pain score of Nonresponsive. MEDICAL/SURGICAL HISTORY: Non-responsive. Non-responsive. COMPARISON: [facility], CHEST 1V SINGLE AP, 06/18/2018. . FINDINGS: Endotracheal tube, nasogastric tube, left neck central line and right chest port are again noted. The re has been slight interval decrease in confluence of right chest pleural parenchymal opacity. Left c hest is nearly clear. Visualized cardiac contours are unchanged. CONCLUSION: Slightly improving aeration Electronically signed by: Dheeraj Roth MD 06/19/2018 6:05 AM EST
[2018-06-19] MEDS: Chlorhexidine 0.12% Oral Kit 15 ML UDC OROPHARYNG SCH ×2 (08:46→21:23)
[2018-06-19] MEDS: Heparin - SQ 10,000 UNITS/ML Vial SQ SCH ×2 (08:46→21:22)
[2018-06-19] MEDS: Senna/Docusate Sodium 8.6/50 MG Tablet PO SCH ×2 (08:47→21:23)
[2018-06-19] MEDS: Vancomycin Inj 1,000 MG in Sodium Chlor 0.9% Inj 250 ML IV.SIG SCH (09:00)
[2018-06-19] MEDS ORDERED: Pharmacy Ordered Lab Info OTHER ONE (09:45)
[2018-06-19 10:13] LABS: Anion Gap 9 meq/L (5-15); Aspartate Aminotransferase 26 U/L (15-37); Blood Urea Nitrogen 16 mg/dL (7-18); Calcium 7.7 mg/dL (8.5-10.1); Carbon Dioxide 23.5 meq/L (21.0-32.0); Chloride 108 meq/L (98-107); Glomerular Filtration Rate Greater Than 89 mL/min (>89); Glucose,Random 105 mg/dL (74-106); Magnesium 1.9 mg/dL (1.5-2.5); Potassium 3.7 meq/L (3.5-5.1); Sodium 140 meq/L (136-145)
[2018-06-19 10:14] LABS: Alanine Aminotransferase 15 U/L (12-78); Phosphorus 2.2 mg/dL (2.5-4.9)
[2018-06-19 10:17] LABS: Alkaline Phosphatase 77 U/L (45-117); Total Protein 5.6 g/dL (6.4-8.2); Vancomycin,Trough 10.6 mcg/mL (5.0-10.0)
--- NOTE | 2018-06-19 10:37 | ECHRPT ---
Indication: HEART FAILURE CONCLUSIONS Normal left ventricular size. Wall thickness is normal. The left ventricular systolic function is severely reduced with an estimated ejection fraction less than 25%. Global hypokinesis, worse at the anteior/apical regions. The right ventricular systoilc function is moderately decreased. Trace mitral valve regurgitation. Trace mitral valve regurgitation. Aortic valve sclerosis is present. The estimated pulmonary arterial pressure is 35 mmHg. A moderate left sided pleural effusion is noted. BP: / HR: Rhythm: MEASUREMENTS (Male / Female) Normal Values Technical Quality:Technically difficult study 2D ECHO LV Diastolic Diameter PLAX 4.5 cm 4.2 - 5.9 / 3.9 - 5.3 cm LV Systolic Diameter PLAX 4.2 cm IVS Diastolic Thickness 1.0 cm 0.6 - 1.0 / 0.6 - 0.9 cm LVPW Diastolic Thickness 0.6 cm 0.6 - 1.0 / 0.6 - 0.9 cm LV Relative Wall Thickness 0.4 RV Internal Dim ED PLAX 2.0 cm M-MODE AV Cusp Separation MM 2.0 cm DOPPLER Mitral E Point Velocity 74.0 cm/s Mitral A Point Velocity 33.6 cm/s Mitral E to A Ratio 2.2 TR Peak Velocity 193.0 cm/s TR Peak Gradient 14.9 mmHg Right Atrial Pressure 20.0 mmHg Pulmonary Artery Systolic Pressu 34.9 mmHg Right Ventricular Systolic Press 34.9 mmHg FINDINGS LEFT VENTRICLE Normal left ventricular size. Wall thickness is normal. The left ventricular systolic function is severely reduced with an estimated ejection fraction less than 25%. Global hypokinesis, worse at the anteior/apical regions. RIGHT VENTRICLE The right ventricular systoilc function is moderately decreased. LEFT ATRIUM The left atrial size is normal. RIGHT ATRIUM The right atrial size is normal. ATRIAL SEPTUM Normal atrial septal thickness without atrial level shunting by limited color doppler interrogation. AORTA The aortic root and proximal ascending aorta are normal in size on limited imaging. MITRAL VALVE Trace mitral valve regurgitation. Trace mitral valve regurgitation. AORTIC VALVE Aortic valve sclerosis is present. TRICUSPID VALVE The estimated pulmonary arterial pressure is 35 mmHg. PULMONARY VALVE No pulmonary valve regurgitation or stenosis. VESSELS The inferior vena cava is normal in size. PERICARDIUM A moderate left sided pleural effusion is noted. Jori Childress MD (Electronically Signed) Final Date:19 June 2018 10:36
--- NOTE | 2018-06-19 11:51 | P.PNONC ---
Subjective Interval history: Afebrile Patient remains sedated on ventilator Easily awakened; agitated Nods head yes and no appropriately Per [facility], the on body Neulasta injector was removed from his posterior right arm. It appears as though he received the dose. Objective Vital Signs/Intake & Output: Vital Signs 06/18/18 14:36 06/18/18 16:00 06/18/18 17:34 Temperature 100.0 F H Pulse Rate 88 99 H Respiratory Rate 20 20 20 Blood Pressure 144/99 H Pulse Oximetry 96 99 98 06/18/18 20:00 06/18/18 21:00 06/18/18 21:08 Temperature 98.6 F Pulse Rate 96 H 96 H 99 H Respiratory Rate 22 22 20 Blood Pressure 103/68 Pulse Oximetry 99 99 06/18/18 21:09 06/18/18 21:10 06/18/18 21:12 Temperature Pulse Rate 100 H 93 H Respiratory Rate 20 20 Blood Pressure 141/75 H 147/79 H Pulse Oximetry 97 97 97 06/18/18 21:15 06/18/18 21:30 06/18/18 21:45 Temperature Pulse Rate 101 H 103 H 105 H Respiratory Rate 20 20 20 Blood Pressure 106/61 103/68 90/59 L Pulse Oximetry 96 95 95 06/18/18 22:00 06/18/18 22:01 06/18/18 22:15 Temperature Pulse Rate 107 H 109 H 107 H Respiratory Rate 20 20 20 Blood Pressure 105/70 97/63 L Pulse Oximetry 96 95 96 06/18/18 22:30 06/18/18 22:45 06/18/18 23:00 Temperature Pulse Rate 102 H 102 H 97 H Respiratory Rate 20 20 20 Blood Pressure 120/63 117/74 92/57 L Pulse Oximetry 97 98 96 06/18/18 23:15 06/18/18 23:30 06/18/18 23:45 Temperature Pulse Rate 99 H 100 H 101 H Respiratory Rate 20 20 20 Blood Pressure 105/65 96/65 L 94/65 L Pulse Oximetry 97 96 96 06/19/18 00:00 06/19/18 00:15 06/19/18 00:25 Temperature 98.4 F Pulse Rate 102 H 100 H 96 H Respiratory Rate 20 20 20 Blood Pressure 100/64 111/74 Pulse Oximetry 96 97 96 06/19/18 00:30 06/19/18 00:45 06/19/18 01:00 EST Temperature Pulse Rate 99 H 101 H 105 H Respiratory Rate 20 20 20 Blood Pressure 120/69 117/60 124/70 Pulse Oximetry 97 97 96 06/19/18 01:15 EST 06/19/18 01:19 EST 06/19/18 01:30 EST Temperature Pulse Rate 110 H 107 H 105 H Respiratory Rate 19 20 20 Blood Pressure 111/58 L 90/51 L 108/56 L Pulse Oximetry 84 L 95 94 L 06/19/18 01:31 EST 06/19/18 01:45 EST 06/19/18 01:52 EST Temperature Pulse Rate 106 H 104 H 106 H Respiratory Rate 20 20 20 Blood Pressure 129/71 92/55 L 116/68 Pulse Oximetry 94 L 96 96 06/19/18 02:00 06/19/18 02:15 06/19/18 02:30 Temperature Pulse Rate 111 H 99 H 97 H Respiratory Rate 24 20 20 Blood Pressure 104/70 92/57 L 96/58 L Pulse Oximetry 95 95 95 06/19/18 02:45 06/19/18 03:00 06/19/18 03:15 Temperature Pulse Rate 95 H 96 H 97 H Respiratory Rate 20 20 20 Blood Pressure 107/64 121/66 118/69 Pulse Oximetry 95 95 95 06/19/18 03:30 06/19/18 03:45 06/19/18 03:50 Temperature Pulse Rate 100 H 104 H 105 H Respiratory Rate 20 20 20 Blood Pressure 122/76 122/73 Pulse Oximetry 95 95 96 06/19/18 04:00 06/19/18 04:15 06/19/18 04:30 Temperature 99.1 F Pulse Rate 102 H 102 H 106 H Respiratory Rate 20 20 20 Blood Pressure 113/60 122/62 117/60 Pulse Oximetry 95 95 96 06/19/18 04:46 06/19/18 05:00 06/19/18 05:15 Temperature Pulse Rate 101 H 105 H 107 H Respiratory Rate 20 20 20 Blood Pressure 127/60 117/57 L 126/73 Pulse Oximetry 95 96 96 06/19/18 05:30 06/19/18 05:45 06/19/18 06:00 Temperature Pulse Rate 110 H 109 H 109 H Respiratory Rate 20 20 20 Blood Pressure 117/72 120/66 105/72 Pulse Oximetry 96 97 95 06/19/18 06:15 06/19/18 06:36 06/19/18 06:45 Temperature Pulse Rate 105 H 105 H 106 H Respiratory Rate 21 20 20 Blood Pressure 105/71 131/69 110/58 L Pulse Oximetry 94 L 96 97 06/19/18 07:00 06/19/18 07:15 06/19/18 07:30 Temperature Pulse Rate 103 H 104 H 102 H Respiratory Rate 20 20 20 Blood Pressure 115/69 113/56 L 111/55 L Pulse Oximetry 96 96 96 06/19/18 07:45 06/19/18 08:00 06/19/18 08:15 Temperature 98.7 F Pulse Rate 101 H 100 H 101 H Respiratory Rate 20 20 20 Blood Pressure 111/56 L 107/65 115/66 Pulse Oximetry 96 96 96 06/19/18 08:16 06/19/18 08:30 06/19/18 08:45 Temperature Pulse Rate 101 H 106 H 104 H Respiratory Rate 21 20 20 Blood Pressure 118/63 112/74 Pulse Oximetry 96 96 96 06/19/18 09:00 06/19/18 09:15 06/19/18 09:30 Temperature Pulse Rate 103 H 103 H 101 H Respiratory Rate 20 20 20 Blood Pressure 111/57 L 110/63 116/72 Pulse Oximetry 96 97 97 06/19/18 09:45 06/19/18 10:00 06/19/18 10:15 Temperature Pulse Rate 97 H 97 H 105 H Respiratory Rate 20 20 21 Blood Pressure 125/62 126/64 117/71 Pulse Oximetry 97 97 97 06/19/18 10:30 06/19/18 11:35 Temperature Pulse Rate 104 H 96 H Respiratory Rate 20 21 Blood Pressure 125/68 Pulse Oximetry 96 96 Intake & Output 06/18/18 06/19/18 06/19/18 19:59 06:59 18:59 Intake Total 100 / 100 Output Total Balance 100 / 100 Weight Intake: IV 100 / 100 Cordarone Inj 450 MG In D5W Inj 241 ML @ 1 MG/MIN 33.33 mls/hr IV.CONT TITRATE PRN Rx#: [id number] Diprivan 1000 mg/100 ml Inj 1, 000 mg In 100 ml @ 5 MCG/KG/MIN 1.837 mls/hr IV.CONT TITRATE PRN Rx#:[id number] NS Inj 1,000 ML @ 84 mls/hr IV. CONT .[id number] [facility] Rx#:[id number] Azactam Inj 2 GM In NS Inj 100 100 / 100 ML @ 200 mls/hr IV.SIG Q8H [facility] Rx#:[id number] Magnesium Sulfate Inj 4 GM In NS Inj 92 ML @ 25 mls/hr IV.SIG ONCE ONE Rx#:[id number] Vancomycin Inj 1,000 MG In NS Inj 250 ML @ 250 mls/hr IV.SIG Q12H [facility] Rx#:[id number] fentaNYL 10 mcg/mL Premix Drip 2,500 mcg In 250 ml @ 50 MCG/HR 5 mls/hr IV.SIG TITRATE PRN Rx #:[id number] Keppra Inj 500 MG In NS Inj 100 ML @ 400 mls/hr IV.SIG Q12H [facility] Rx#:[id number] Output: Urine Amount (Catheter) Straight Gastric Drainage Orogastric Tube Other: # Bowel Movements Result Diagrams: 06/19/18 05:00 06/19/18 09:35 Laboratory Results: Laboratory Results - last 24 hr 06/18/18 06/19/18 06/19/18 17:10 00:37 05:00 WBC 46.0 H RBC 2.68 L Hgb 7.9 L Hct 24.8 L MCV 92.6 MCH 29.3 MCHC 31.7 L RDW 24.1 H Plt Count 335 MPV 7.2 PT INR Puncture Site Patient Temperature O2 Saturation ABG pH ABG pCO2 ABG pO2 ABG HCO3 ABG O2 Content ABG Base Excess ABG Methemoglobin Memo Test Hemoglobin Carboxyhemoglobin O2 Delivery Device Vent Setting Inspired O2 Critical Value Sodium Potassium Chloride Carbon Dioxide Anion Gap BUN Creatinine Estimated GFR POC Glucose 134 H 105 Random Glucose Calcium Phosphorus Magnesium Total Bilirubin AST ALT Alkaline Phosphatase Total Protein Albumin Vancomycin Trough 06/19/18 06/19/18 06/19/18 05:00 05:35 06:02 WBC RBC Hgb Hct MCV MCH MCHC RDW Plt Count MPV PT 13.1 H INR 1.3 Puncture Site Left radial Patient Temperature 98.6 O2 Saturation 96 ABG pH 7.45 H ABG pCO2 32 L ABG pO2 169 H ABG HCO3 21 L ABG O2 Content 11.6 L ABG Base Excess -2.1 L ABG Methemoglobin 1.7 Emmo Test Present Hemoglobin 8.3 L Carboxyhemoglobin 1.8 O2 Delivery Device Ventilator Vent Setting See comments Inspired O2 40 Critical Value No Sodium Potassium Chloride Carbon Dioxide Anion Gap BUN Creatinine Estimated GFR POC Glucose 123 H Random Glucose Calcium Phosphorus Magnesium Total Bilirubin AST ALT Alkaline Phosphatase Total Protein Albumin Vancomycin Trough 06/19/18 09:35 WBC RBC Hgb Hct MCV MCH MCHC RDW Plt Count MPV PT INR Puncture Site Patient Temperature O2 Saturation ABG pH ABG pCO2 ABG pO2 ABG HCO3 ABG O2 Content ABG Base Excess ABG Methemoglobin Memo Test Hemoglobin Carboxyhemoglobin O2 Delivery Device Vent Setting Inspired O2 Critical Value Sodium 140 Potassium 3.7 Chloride 108 H Carbon Dioxide 23.5 Anion Gap 9 BUN 16 Creatinine 0.72 Estimated GFR Greater than 89 POC Glucose Random Glucose 105 Calcium 7.7 L Phosphorus 2.2 L Magnesium 1.9 Total Bilirubin 0.8 AST 26 ALT 15 Alkaline Phosphatase 77 Total Protein 5.6 L Albumin 2.0 L Vancomycin Trough 10.6 H Culture Results: Microbiology 06/17/18 17:30 Aerobic Blood Culture - Preliminary Blood - Line No growth in 2 days Anaerobic Blood Culture - Preliminary No growth in 2 days 06/17/18 17:30 Aerobic Blood Culture - Preliminary Blood - Line No growth in 2 days Anaerobic Blood Culture - Preliminary No growth in 2 days 06/18/18 00:20 Gram Stain - Final Sputum - Endotracheal 06/18/18 04:20 Fungal Smear - Final Bronchial Washings - Bronchial No fungal elements seen 06/18/18 04:20 Gram Stain - Final Bronchial - Bronchial Imaging Studies: Impressions Head MRI 06/18/18 00:00 CONCLUSION: 1. Small subcortical metastatic lesions have developed, one of the left frontal lobe and one of the left parietal lobe. 2. 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 3. No bleed or acute/subacute infarct. 4. Chronic pansinusitis. Chest X-Ray 06/19/18 05:00 CONCLUSION: Slightly improving aeration Medications: Active Medications Generic Name Dose Route Start Last Admin Trade Name Freq PRN Reason Stop Dose Admin Albuterol 1 ampul 06/17/18 20:00 06/19/18 11:34 Duoneb Neb (Flower) NEB 1 ampul Q4HR NEB LFOWER Administration Chlorhexidine Gluconate 15 ml 06/17/18 20:00 06/19/18 08:46 Peridex 0.12% Oral Kit OROPHARYNG 15 ml BID@0800,2000 [facility] Administration Chlorhexidine Gluconate 3 pack 06/18/18 04:00 06/19/18 04:12 Chlorhexidine 2% Cloth TOPICAL 06/23/18 03:59 3 pack DAILY@0400 [facility] Administration Heparin Sodium (Porcine) 5,000 units 06/17/18 20:00 06/19/18 08:46 Heparin Inj SQ 5,000 units Q12H [facility] Administration Fentanyl 2,500 mcg in 250 mls @ 5 mls/hr 06/17/18 18:49 06/19/18 04:08 Fentanyl 10 Mcg/Ml Premix Drip IV.SIG 250 mcg/hr TITRATE PRN 25 mls/hr Per Protocol Administration Protocol 50 MCG/HR Sodium Chloride 1,000 mls @ 84 mls/hr 06/17/18 19:00 06/19/18 06:04 Ns Inj IV.CONT 84 mls/hr .[id number] [facility] Administration Propofol 1,000 mg in 100 mls @ 1.837 mls/hr 06/17/18 18:49 06/19/18 01:20 EDT Diprivan 1000 Mg/100 Ml Inj IV.CONT Infused TITRATE PRN Titration Per Protocol Protocol 5 MCG/KG/MIN Phenylephrine HCl 160 mg/ 500 mls @ 7.5 mls/hr 06/17/18 18:54 06/18/18 21:00 Sodium Chloride IV.CONT 0 mcg/min TITRATE PRN 0 mls/hr See protol Titration Protocol 40 MCG/MIN Levetiracetam 500 mg/ Sodium 105 mls @ 400 mls/hr 06/18/18 08:00 06/19/18 08: 45 Chloride IV.SIG 400 mls/hr Q12H [facility] Administration Aztreonam 2 gm/ Sodium 100 mls @ 200 mls/hr 06/17/18 23:00 06/19/18 11:30 Chloride IV.SIG Infused Q8H [facility] Infusion Amiodarone HCl 450 mg/ 250 mls @ 33.33 mls/hr 06/18/18 08:00 06/19/18 00:57 Dextrose IV.CONT 0.5 mg/min TITRATE PRN 16.66 mls/hr Per Protocol Administration Protocol 1 MG/MIN Insulin Human Regular 0 units 06/18/18 18:00 06/19/18 06:03 Novolin R Correctional Sugar Inj SQ Not Given Q6HR [facility] Protocol Metronidazole 500 mg 06/18/18 00:00 06/19/18 11:25 Flagyl PO 500 mg Q6HR [facility] Administration Midazolam HCl 10 mg 06/18/18 16:00 06/18/18 18:30 Versed Inj IV.PUSH 10 mg ONCE PRN Administration AGITATION Miscellaneous Medication 1 each 06/18/18 00:00 06/19/18 11:25 OROPHARYNG 1 each 0000,0400,1200,1600 [facility] Administration Pantoprazole Sodium 40 mg 06/17/18 20:00 06/18/18 22:06 Protonix Inj IV.PUSH 40 mg Q24H [facility] Administration Senna/Docusate Sodium 1 tab 06/17/18 21:00 06/19/18 08:47 Heather-Colace PO 1 tab BID [facility] Administration Sodium Chloride 2 ml 06/17/18 21:00 06/19/18 08:47 Ns Flush IV.FLUSH 2 ml BID [facility] Administration Sodium Chloride 2 ml 06/18/18 09:00 06/19/18 08:47 Ns Flush IV.FLUSH 2 ml DAILY [facility] Administration Objective Remarks: GENERAL: Chronically ill-appearing older male resting in bed mechanically ventilated SKIN: Warm and dry. HEAD: Normocephalic. EYES: No scleral icterus. No injection or drainage. NECK: Supple, trachea midline. No JVD or lymphadenopathy. CARDIOVASCULAR: Regular rate and rhythm without murmurs. RESPIRATORY: Mechanically ventilated GASTROINTESTINAL: Abdomen soft, non-tender, nondistended. EXTREMITIES: No cyanosis. SCDs to bilateral lower extremities MUSCULOSKELETAL: Adequate muscle tone. NEUROLOGICAL: Sedated but awake. Nods head yes and no to questions. Assessment/Plan - Plan 62-year-old male with history of metastatic small cell lung cancer who was brought in by his neighbor after being found face down on the floor. He was last seen on 06/14 prior to the start of his chemotherapy. He was given a Neulasta on body injector after the etoposide and [employer]-16. 1. Chest x-ray today shows improved aeration 2. No need for growth factor support with Neupogen as it appears he did receive the support from Neulasta 3. Consult radiation oncology for new metastatic lesions seen in the left frontal lobe and left parietal lobe 4. Respiratory management per smoking pipes cleaner. Continue supportive care. Dr. Herrera to resume care in the morning - Attending Statement The exam, history, and the medical decision-making described in the above note were completed with the assistance of the mid-level provider. I reviewed and agree with the findings presented. I attest that I had a [id number] encounter with the patient on the same day, and personally performed and documented my assessment and findings in the medical record. MRI of the brain noted. New [employer] metastatic disease. Discussed with smoking pipes cleaner who suspect a seizure events. Anticipate extubation sometime today. Radiation oncology is consulted. Neulasta support was administered which would hopefully avert severe neutropenia after the last cycle of chemotherapy with carboplatin and [employer] MACHINE-16. Dr. Herrera to resume his care tomorrow.
--- NOTE | 2018-06-19 12:52 | MG ---
cc: Sarah Vieira MD AGE: [id number] years old EEG NUMBER: [id number] REFERRING PHYSICIAN: Beto Mas MD ROOM: [id number] Intubated with photic done. Fentanyl 250 mcg. Apparently is awake, following commands. CT is negative. Last EEG in 02/2018 shows mild encephalopathy with cardiac arrhythmia, admitted with acute onset of change in mental status. He had a seizure, history of brain metastasis, stage III lung cancer, on chemo. Currently on Keppra, amiodarone, antibiotics, fentanyl. DESCRIPTION OF RECORD: Overall attenuated background of 2-3 Hz, 4 Hz variable, likely due to the patient being on medication. Overall, symmetrically slow bilateral. No appreciable epileptiform features. Photic stimulation with minimal driving response if at all. IMPRESSION: Mild to moderate slowing consistent with what looks like encephalopathic process. No evidence of epileptiform features. Clinical correlation. Sarah Vieira MD DF/karyna , 12:15 PM , 12:21 PM
[2018-06-19] MEDS: Vancomycin Inj 750 MG in Sodium Chlor 0.9% Inj 250 ML IV.SIG SCH ×2 (16:04→23:44)
--- NOTE | 2018-06-19 17:09 | P.CON ---
History of Present Illness Service: radiation oncology Primary Care Provider: UNKNOWN Chief Complaint: Altered mental status/seizure History of Present Illness: Mr. cruz intubated. New brain metastasis. Hx small cell lung CA prior SRS brain. Seen as inpatient, discussed with nurse. FORMERLY [facility] - History History Provided By: Impregnating Helper / EMT - Medical History Medical History: Medical History (Last Reviewed 06/18/18 @ 09:12 by Davin Khan) Brain cancer History of chemotherapy Lung cancer - Tobacco History Smoking Status: Cognitive impairment - Alcohol History How Often Do You Have a Drink Containing Alcohol: Unable to Obtain - Substance Use History Substance History: Unable to Obtain - Travel History Recent Travel in the [place] Within the Last 8 Weeks: No Recent Travel Out of the Country Within the Last 8 Weeks: No - Immunization History Tetanus Immunization: Unable to Assess Medications and Allergies Active Medications: Active Medications Acetaminophen (Tylenol) 650 mg PO Q6H PRN PRN Reason: FEVER Al Hydroxide/Mg Hydroxide (Milk Of Magnesia Liq) 30 ml PO Q12H PRN PRN Reason: Mild Constipation Albuterol (Albuterol Neb (Prn)) 2.5 mg NEB Q2HR NEB PRN PRN Reason: SHORTNESS OF BREATH/WHEEZING Albuterol (Duoneb Neb (Flower)) 1 ampul NEB Q4HR NEB COUNTS INCLUDE 234 BEDS AT THE [facility] Last Admin: 06/19/18 15:38 Dose: 1 ampul Bisacodyl (Dulcolax Supp) 10 mg RECTAL DAILY PRN PRN Reason: SEVERE CONSITIPATION Chlorhexidine Gluconate (Peridex 0.12% Oral Kit) 15 ml OROPHARYNG BID@0800, 2000 COUNTS INCLUDE 234 BEDS AT THE [facility] Last Admin: 06/19/18 08:46 Dose: 15 ml Chlorhexidine Gluconate (Chlorhexidine 2% Cloth) 3 pack TOPICAL DAILY@0400 COUNTS INCLUDE 234 BEDS AT THE [facility] Stop: 06/23/18 03:59 Last Admin: 06/19/18 04:12 Dose: 3 pack Chlorhexidine Gluconate (Chlorhexidine 2% Cloth) 3 pack TOPICAL DAILY@0400 PRN PRN Reason: Extra cloth needed Stop: 06/23/18 03:59 Dextrose (D50w Vial) 50 ml IV.PUSH UNSCH PRN PRN Reason: PER HYPOGLYCEMIA PROTOCOL Glucagon (Glucagon Inj) 1 mg OTHER PRN PRN PRN Reason: for Hypoglycemia Protocol Glucagon (Glucagon Inj) 1 mg OTHER PRN PRN PRN Reason: for Hypoglycemia Protocol Heparin Sodium (Porcine) (Heparin Inj) 5,000 units SQ Q12H COUNTS INCLUDE 234 BEDS AT THE [facility] Last Admin: 06/19/18 08:46 Dose: 5,000 units Fentanyl (Fentanyl 10 Mcg/Ml Premix Drip) 2,500 mcg in 250 mls @ 5 mls/hr IV.SIG TITRATE PRN; Protocol PRN Reason: Per Protocol Last Admin: 06/19/18 13:47 Dose: 250 mcg/hr, 25 mls/hr Magnesium Sulfate 4 gm/ Sodium (Chloride) 100 mls @ 50 mls/hr IV.SIG UNSCH PRN PRN Reason: For Magnesium 0.9 - 1.1 mg/dL Magnesium Sulfate 2 gm/ Sodium (Chloride) 100 mls @ 50 mls/hr IV.SIG UNSCH PRN PRN Reason: For Magnesium 1.2 - 1.6 mg/dL Sodium Chloride (Ns Inj) 1,000 mls @ 84 mls/hr IV.CONT .[id number] COUNTS INCLUDE 234 BEDS AT THE [facility] Last Admin: 06/19/18 06:04 Dose: 84 mls/hr Potassium Chloride (Kcl 20 Meq Premix Inj) 20 meq in 100 mls @ 50 mls/hr IV.SIG Q2H PRN PRN Reason: For Potassium 3.3 - 3.5 mEq/L Potassium Chloride (Kcl 40 Meq Premix Inj) 40 meq in 100 mls @ 25 mls/hr IV.SIG UNSCH PRN PRN Reason: For Potassium 3.3 - 3.5 mEq/L Potassium Chloride (Kcl 20 Meq Premix Inj) 20 meq in 100 mls @ 50 mls/hr IV.SIG Q2H PRN PRN Reason: For Potassium 2.8 - 3.2 mEq/L Potassium Phosphate 30 mmol/ (Sodium Chloride) 260 mls @ 42 mls/hr IV.SIG UNSCH PRN PRN Reason: SEE LABEL COMMENTS Propofol (Diprivan 1000 Mg/100 Ml Inj) 1,000 mg in 100 mls @ 1.837 mls/hr IV.CONT TITRATE PRN; Protocol PRN Reason: Per Protocol Last Titration: 06/19/18 01:20 EDT Dose: Infused Sodium Phosphate 30 mmol/ (Sodium Chloride) 260 mls @ 42 mls/hr IV.SIG UNSCH PRN PRN Reason: For Phosphorus < 2.5 mg/dL Potassium Chloride (Kcl 40 Meq Premix Inj) 40 meq in 100 mls @ 25 mls/hr IV.SIG Q2H PRN PRN Reason: For Potassium 2.8 - 3.2 mEq/L Phenylephrine HCl 160 mg/ (Sodium Chloride) 500 mls @ 7.5 mls/hr IV.CONT TITRATE PRN; Protocol PRN Reason: See protol Last Titration: 06/18/18 21:00 Dose: 0 mcg/min, 0 mls/hr Levetiracetam 500 mg/ Sodium (Chloride) 105 mls @ 400 mls/hr IV.SIG Q12H [facility] Last Admin: 06/19/18 08:45 Dose: 400 mls/hr Aztreonam 2 gm/ Sodium (Chloride) 100 mls @ 200 mls/hr IV.SIG Q8H [facility] Last Admin: 06/19/18 15:31 Dose: 100 mls/hr Diltiazem HCl 125 mg/ Sodium (Chloride) 125 mls @ 2.5 mls/hr IV.CONT TITRATE PRN; Protocol PRN Reason: Per Protocol Amiodarone HCl 450 mg/ (Dextrose) 250 mls @ 33.33 mls/hr IV.CONT TITRATE PRN; Protocol PRN Reason: Per Protocol Last Admin: 06/19/18 16:42 Dose: 0.5 mg/min, 16.66 mls/hr Vancomycin HCl 750 mg/ Sodium (Chloride) 257.5 mls @ 250 mls/hr IV.SIG Q8H [facility] Last Admin: 06/19/18 16:04 Dose: 250 mls/hr Insulin Human Regular (Novolin R Correctional Sugar Inj) 0 units SQ Q6HR [facility]; Protocol Last Admin: 06/19/18 13:46 Dose: Not Given Lactulose (Lactulose Liq) 30 ml PO DAILY PRN PRN Reason: SEVERE CONSITIPATION Magnesium Oxide (Mag-Ox) 800 mg PO UNSCH PRN PRN Reason: For Magnesium 1.2 - 1.6 mg/dL Metronidazole (Flagyl) 500 mg PO Q6HR [facility] Last Admin: 06/19/18 11:25 Dose: 500 mg Midazolam HCl (Versed Inj) 10 mg IV.PUSH ONCE PRN PRN Reason: AGITATION Last Admin: 06/19/18 14:37 Dose: 10 mg Miscellaneous Information ([facility] Ordered Lab Info) 0 each OTHER ONCE ONE Stop: 06/20/18 06:46 Miscellaneous Medication () 1 each OROPHARYNG 0000,0400,1200,1600 COUNTS INCLUDE 234 BEDS AT THE [facility] Last Admin: 06/19/18 15:50 Dose: 1 each Pantoprazole Sodium (Protonix Inj) 40 mg IV.PUSH Q24H COUNTS INCLUDE 234 BEDS AT THE [facility] Last Admin: 06/18/18 22:06 Dose: 40 mg Pharmacy Profile Note (Vancomycin Consult Pharmacy) 1 each OTHER UNSCH PRN PRN Reason: Pharmacy to dose Potassium Bicarb/Potassium Chloride (K-Lyte Cl Eff) 50 meq PO UNSCH PRN PRN Reason: For Potassium 3.3 - 3.5 mEq/L Potassium Phosphate (K-Phos Original) 2,000 mg PO Q4H PRN PRN Reason: Phosphorus Less Than 2.5 mg/dL Last Admin: 06/19/18 15:31 Dose: 2,000 mg Potassium Phosphate (K-Phos Original) 2,000 mg PO UNSCH PRN PRN Reason: SEE LABEL COMMENTS Senna/Docusate Sodium (Heather-Colace) 1 tab PO BID COUNTS INCLUDE 234 BEDS AT THE [facility] Last Admin: 06/19/18 08:47 Dose: 1 tab Sennosides (Senokot) 17.2 mg PO Q12H PRN PRN Reason: Moderate Constipation Sodium Chloride (Ns Flush) 2 ml IV.FLUSH PRN PRN PRN Reason: FLUSH AFTER USING IV ACCESS Sodium Chloride (Ns Flush) 2 ml IV.FLUSH BID COUNTS INCLUDE 234 BEDS AT THE [facility] Last Admin: 06/19/18 08:47 Dose: 2 ml Sodium Chloride (Ns Flush) 2 ml IV.FLUSH DAILY COUNTS INCLUDE 234 BEDS AT THE [facility] Last Admin: 06/19/18 08:47 Dose: 2 ml Terbutaline Sulfate (Brethine Inj) 1 mg SQ UNSCH PRN PRN Reason: For Extravasation Allergies Allergy/AdvReac Type Severity Reaction Status Date / Time No Allergy Information Allergy Unverified 06/17/18 16:11 Available Home Medications Medication Instructions Recorded Confirmed Type Unable to Obtain Home Meds 06/17/18 06/17/18 History Physical Exam Vital signs: Vital Signs 06/18/18 20:00 06/18/18 21:00 06/18/18 21:08 Temperature 98.6 F Pulse Rate 96 H 96 H 99 H Respiratory Rate 22 22 20 Blood Pressure 103/68 Pulse Oximetry 99 99 06/18/18 21:09 06/18/18 21:10 06/18/18 21:12 Temperature Pulse Rate 100 H 93 H Respiratory Rate 20 20 Blood Pressure 141/75 H 147/79 H Pulse Oximetry 97 97 97 06/18/18 21:15 06/18/18 21:30 06/18/18 21:45 Temperature Pulse Rate 101 H 103 H 105 H Respiratory Rate 20 20 20 Blood Pressure 106/61 103/68 90/59 L Pulse Oximetry 96 95 95 06/18/18 22:00 06/18/18 22:01 06/18/18 22:15 Temperature Pulse Rate 107 H 109 H 107 H Respiratory Rate 20 20 20 Blood Pressure 105/70 97/63 L Pulse Oximetry 96 95 96 06/18/18 22:30 06/18/18 22:45 06/18/18 23:00 Temperature Pulse Rate 102 H 102 H 97 H Respiratory Rate 20 20 20 Blood Pressure 120/63 117/74 92/57 L Pulse Oximetry 97 98 96 06/18/18 23:15 06/18/18 23:30 06/18/18 23:45 Temperature Pulse Rate 99 H 100 H 101 H Respiratory Rate 20 20 20 Blood Pressure 105/65 96/65 L 94/65 L Pulse Oximetry 97 96 96 06/19/18 00:00 06/19/18 00:15 06/19/18 00:25 Temperature 98.4 F Pulse Rate 102 H 100 H 96 H Respiratory Rate 20 20 20 Blood Pressure 100/64 111/74 Pulse Oximetry 96 97 96 06/19/18 00:30 06/19/18 00:45 06/19/18 01:00 EST Temperature Pulse Rate 99 H 101 H 105 H Respiratory Rate 20 20 20 Blood Pressure 120/69 117/60 124/70 Pulse Oximetry 97 97 96 06/19/18 01:15 EST 06/19/18 01:19 EST 06/19/18 01:30 EST Temperature Pulse Rate 110 H 107 H 105 H Respiratory Rate 19 20 20 Blood Pressure 111/58 L 90/51 L 108/56 L Pulse Oximetry 84 L 95 94 L 06/19/18 01:31 EST 06/19/18 01:45 EST 06/19/18 01:52 EST Temperature Pulse Rate 106 H 104 H 106 H Respiratory Rate 20 20 20 Blood Pressure 129/71 92/55 L 116/68 Pulse Oximetry 94 L 96 96 06/19/18 02:00 06/19/18 02:15 06/19/18 02:30 Temperature Pulse Rate 111 H 99 H 97 H Respiratory Rate 24 20 20 Blood Pressure 104/70 92/57 L 96/58 L Pulse Oximetry 95 95 95 06/19/18 02:45 06/19/18 03:00 06/19/18 03:15 Temperature Pulse Rate 95 H 96 H 97 H Respiratory Rate 20 20 20 Blood Pressure 107/64 121/66 118/69 Pulse Oximetry 95 95 95 06/19/18 03:30 06/19/18 03:45 06/19/18 03:50 Temperature Pulse Rate 100 H 104 H 105 H Respiratory Rate 20 20 20 Blood Pressure 122/76 122/73 Pulse Oximetry 95 95 96 06/19/18 04:00 06/19/18 04:15 06/19/18 04:30 Temperature 99.1 F Pulse Rate 102 H 102 H 106 H Respiratory Rate 20 20 20 Blood Pressure 113/60 122/62 117/60 Pulse Oximetry 95 95 96 06/19/18 04:46 06/19/18 05:00 06/19/18 05:15 Temperature Pulse Rate 101 H 105 H 107 H Respiratory Rate 20 20 20 Blood Pressure 127/60 117/57 L 126/73 Pulse Oximetry 95 96 96 06/19/18 05:30 06/19/18 05:45 06/19/18 06:00 Temperature Pulse Rate 110 H 109 H 109 H Respiratory Rate 20 20 20 Blood Pressure 117/72 120/66 105/72 Pulse Oximetry 96 97 95 06/19/18 06:15 06/19/18 06:36 06/19/18 06:45 Temperature Pulse Rate 105 H 105 H 106 H Respiratory Rate 21 20 20 Blood Pressure 105/71 131/69 110/58 L Pulse Oximetry 94 L 96 97 06/19/18 07:00 06/19/18 07:15 06/19/18 07:30 Temperature Pulse Rate 103 H 104 H 102 H Respiratory Rate 20 20 20 Blood Pressure 115/69 113/56 L 111/55 L Pulse Oximetry 96 96 96 06/19/18 07:45 06/19/18 08:00 06/19/18 08:15 Temperature 98.7 F Pulse Rate 101 H 100 H 101 H Respiratory Rate 20 20 20 Blood Pressure 111/56 L 107/65 115/66 Pulse Oximetry 96 96 96 06/19/18 08:16 06/19/18 08:30 06/19/18 08:45 Temperature Pulse Rate 101 H 106 H 104 H Respiratory Rate 21 20 20 Blood Pressure 118/63 112/74 Pulse Oximetry 96 96 96 06/19/18 09:00 06/19/18 09:15 06/19/18 09:30 Temperature Pulse Rate 103 H 103 H 101 H Respiratory Rate 20 20 20 Blood Pressure 111/57 L 110/63 116/72 Pulse Oximetry 96 97 97 06/19/18 09:45 06/19/18 10:00 06/19/18 10:15 Temperature Pulse Rate 97 H 97 H 105 H Respiratory Rate 20 20 21 Blood Pressure 125/62 126/64 117/71 Pulse Oximetry 97 97 97 06/19/18 10:30 06/19/18 11:35 06/19/18 12:00 Temperature 98.8 F Pulse Rate 104 H 96 H 104 H Respiratory Rate 20 21 28 H Blood Pressure 125/68 112/59 L Pulse Oximetry 96 96 06/19/18 12:55 06/19/18 15:40 06/19/18 16:00 Temperature Pulse Rate 104 H 103 H Respiratory Rate 21 20 Blood Pressure Pulse Oximetry 95 06/19/18 16:15 Temperature Pulse Rate Respiratory Rate 16 Blood Pressure Pulse Oximetry 95 Intake & Output 06/18/18 06/19/18 06/19/18 19:59 06:59 18:59 Intake Total 600 / 600 Output Total Balance 600 / 600 Weight Intake: IV 600 / 600 Cordarone Inj 450 MG In D5W Inj 250 / 250 241 ML @ 1 MG/MIN 33.33 mls/hr IV.CONT TITRATE PRN Rx#: [id number] Diprivan 1000 mg/100 ml Inj 1, 000 mg In 100 ml @ 5 MCG/KG/MIN 1.837 mls/hr IV.CONT TITRATE PRN Rx#:[id number] NS Inj 1,000 ML @ 84 mls/hr IV. CONT .[id number] COUNTS INCLUDE 234 BEDS AT THE [facility] Rx#:[id number] Azactam Inj 2 GM In NS Inj 100 100 / 100 ML @ 200 mls/hr IV.SIG Q8H [facility] Rx#:[id number] Magnesium Sulfate Inj 4 GM In NS Inj 92 ML @ 25 mls/hr IV.SIG ONCE ONE Rx#:[id number] Vancomycin Inj 1,000 MG In NS Inj 250 ML @ 250 mls/hr IV.SIG Q12H [facility] Rx#:[id number] fentaNYL 10 mcg/mL Premix Drip 250 / 250 2,500 mcg In 250 ml @ 50 MCG/HR 5 mls/hr IV.SIG TITRATE PRN Rx #:[id number] Keppra Inj 500 MG In NS Inj 100 ML @ 400 mls/hr IV.SIG Q12H [facility] Rx#:[id number] Output: Urine Amount (Catheter) Straight Gastric Drainage Orogastric Tube Other: # Bowel Movements - Urinary Catheter Management Coude Cath placed during this visit: yes, but has since been removed by the nurse Reason for continuing: Not indwelling catheter Insertion date: 06/17/18 Insertion time: 16:30 Removal date: 06/18/18 Removal time: 12:00 Straight Cath placed during this visit: yes Reason for continuing: Not indwelling catheter Insertion date: 06/19/18 Insertion time: 12:00 Assessment and Plan - Plan will discuss whole brain xrt with patient. We will schedule follow in the next few days.
--- NOTE | 2018-06-19 18:03 | P.PNCC ---
Subjective Subjective Remarks/Hospital Course: Hospital Course: This is a male. Unknown age. Date of admission 06/17/2018. Past medical history includes brain cancer stage III according to brother, lung cancer presents to [facility] with acute onset of altered mental status. While at home today, this patient suddenly fell face down at home, had seizure episode. When EMS came the treated him with Versed, patient was brought to emergency room unconscious, sedated. His saturation was 88-90 on room air, as per EMS patient brother ask to save his life, at this time patient is full code. IV line placed, patient was intubated, placed on ventilation machine. Pupils are 3 mm equal sluggish. Has abrasion over his forehead and bridge of the nose. There is significant rhonchi bilateral during auscultation. Heart rate is 170, rapid A. fib on EKG. Patient treated with Cardizem. Patient did self extubate was reintubated due to similar findings. CT brain no acute findings. CT C-spine no acute findings. CT abdomen/pelvis revealed ascites. In discussion with brother, patient has stage III of brain cancer/lung cancer but had "improved somewhat over the past month. He wishes him to be full code at the present time. His name is been lost to him at the present time however. Subjective: 06/18: By EMS records: Patient has been identified as Lorenzo Mendez ( 1955) . Patient has been recently admitted back in 2017 for pneumonia and before that in 02/2018. in February, the patient named Bhavin Dinero ([phone]) as his healthcare surrogate (best friend). I talked with Mr. Dinero and updated him about his condition and his overall poor prognosis. He is going to call the remainder of Mr. Mendez family today and will get back with me. Patient is now hypotensive and we are starting vasopressors. he is also in afib RVR requiring amiodarone. no improvements in his clinical status. required emergent bronch overnight for worsening aeration and mucous plugging. ROS unobtainable from the patient. 06/19: MRI overnight with multiple new metastases. however, awake and following commands this morning. will SBT and wean to see if we can successfully extubate him. Objective Vital Signs / I&O: Vital Signs 06/18/18 20:00 06/18/18 21:00 06/18/18 21:08 Temperature 37.0 C Pulse Rate 96 H 96 H 99 H Respiratory Rate 22 22 20 Blood Pressure 103/68 Pulse Oximetry 99 99 06/18/18 21:09 06/18/18 21:10 06/18/18 21:12 Temperature Pulse Rate 100 H 93 H Respiratory Rate 20 20 Blood Pressure 141/75 H 147/79 H Pulse Oximetry 97 97 97 06/18/18 21:15 06/18/18 21:30 06/18/18 21:45 Temperature Pulse Rate 101 H 103 H 105 H Respiratory Rate 20 20 20 Blood Pressure 106/61 103/68 90/59 L Pulse Oximetry 96 95 95 06/18/18 22:00 06/18/18 22:01 06/18/18 22:15 Temperature Pulse Rate 107 H 109 H 107 H Respiratory Rate 20 20 20 Blood Pressure 105/70 97/63 L Pulse Oximetry 96 95 96 06/18/18 22:30 06/18/18 22:45 06/18/18 23:00 Temperature Pulse Rate 102 H 102 H 97 H Respiratory Rate 20 20 20 Blood Pressure 120/63 117/74 92/57 L Pulse Oximetry 97 98 96 06/18/18 23:15 06/18/18 23:30 06/18/18 23:45 Temperature Pulse Rate 99 H 100 H 101 H Respiratory Rate 20 20 20 Blood Pressure 105/65 96/65 L 94/65 L Pulse Oximetry 97 96 96 06/19/18 00:00 06/19/18 00:15 06/19/18 00:25 Temperature 36.9 C Pulse Rate 102 H 100 H 96 H Respiratory Rate 20 20 20 Blood Pressure 100/64 111/74 Pulse Oximetry 96 97 96 06/19/18 00:30 06/19/18 00:45 06/19/18 01:00 EST Temperature Pulse Rate 99 H 101 H 105 H Respiratory Rate 20 20 20 Blood Pressure 120/69 117/60 124/70 Pulse Oximetry 97 97 96 06/19/18 01:15 EST 06/19/18 01:19 EST 06/19/18 01:30 EST Temperature Pulse Rate 110 H 107 H 105 H Respiratory Rate 19 20 20 Blood Pressure 111/58 L 90/51 L 108/56 L Pulse Oximetry 84 L 95 94 L 06/19/18 01:31 EST 06/19/18 01:45 EST 06/19/18 01:52 EST Temperature Pulse Rate 106 H 104 H 106 H Respiratory Rate 20 20 20 Blood Pressure 129/71 92/55 L 116/68 Pulse Oximetry 94 L 96 96 06/19/18 02:00 06/19/18 02:15 06/19/18 02:30 Temperature Pulse Rate 111 H 99 H 97 H Respiratory Rate 24 20 20 Blood Pressure 104/70 92/57 L 96/58 L Pulse Oximetry 95 95 95 06/19/18 02:45 06/19/18 03:00 06/19/18 03:15 Temperature Pulse Rate 95 H 96 H 97 H Respiratory Rate 20 20 20 Blood Pressure 107/64 121/66 118/69 Pulse Oximetry 95 95 95 06/19/18 03:30 06/19/18 03:45 06/19/18 03:50 Temperature Pulse Rate 100 H 104 H 105 H Respiratory Rate 20 20 20 Blood Pressure 122/76 122/73 Pulse Oximetry 95 95 96 06/19/18 04:00 06/19/18 04:15 06/19/18 04:30 Temperature 37.3 C Pulse Rate 102 H 102 H 106 H Respiratory Rate 20 20 20 Blood Pressure 113/60 122/62 117/60 Pulse Oximetry 95 95 96 06/19/18 04:46 06/19/18 05:00 06/19/18 05:15 Temperature Pulse Rate 101 H 105 H 107 H Respiratory Rate 20 20 20 Blood Pressure 127/60 117/57 L 126/73 Pulse Oximetry 95 96 96 06/19/18 05:30 06/19/18 05:45 06/19/18 06:00 Temperature Pulse Rate 110 H 109 H 109 H Respiratory Rate 20 20 20 Blood Pressure 117/72 120/66 105/72 Pulse Oximetry 96 97 95 06/19/18 06:15 06/19/18 06:36 06/19/18 06:45 Temperature Pulse Rate 105 H 105 H 106 H Respiratory Rate 21 20 20 Blood Pressure 105/71 131/69 110/58 L Pulse Oximetry 94 L 96 97 06/19/18 07:00 06/19/18 07:15 06/19/18 07:30 Temperature Pulse Rate 103 H 104 H 102 H Respiratory Rate 20 20 20 Blood Pressure 115/69 113/56 L 111/55 L Pulse Oximetry 96 96 96 06/19/18 07:45 06/19/18 08:00 06/19/18 08:15 Temperature 37.1 C Pulse Rate 101 H 100 H 101 H Respiratory Rate 20 20 20 Blood Pressure 111/56 L 107/65 115/66 Pulse Oximetry 96 96 96 06/19/18 08:16 06/19/18 08:30 06/19/18 08:45 Temperature Pulse Rate 101 H 106 H 104 H Respiratory Rate 21 20 20 Blood Pressure 118/63 112/74 Pulse Oximetry 96 96 96 06/19/18 09:00 06/19/18 09:15 06/19/18 09:30 Temperature Pulse Rate 103 H 103 H 101 H Respiratory Rate 20 20 20 Blood Pressure 111/57 L 110/63 116/72 Pulse Oximetry 96 97 97 06/19/18 09:45 06/19/18 10:00 06/19/18 10:15 Temperature Pulse Rate 97 H 97 H 105 H Respiratory Rate 20 20 21 Blood Pressure 125/62 126/64 117/71 Pulse Oximetry 97 97 97 06/19/18 10:30 06/19/18 11:35 06/19/18 12:00 Temperature 37.1 C Pulse Rate 104 H 96 H 104 H Respiratory Rate 20 21 28 H Blood Pressure 125/68 112/59 L Pulse Oximetry 96 96 06/19/18 12:55 06/19/18 15:40 06/19/18 16:00 Temperature Pulse Rate 104 H 103 H Respiratory Rate 21 20 Blood Pressure Pulse Oximetry 95 06/19/18 16:15 Temperature Pulse Rate Respiratory Rate 16 Blood Pressure Pulse Oximetry 95 Intake & Output 06/18/18 06/19/18 06/19/18 19:59 06:59 18:59 Intake Total 705 / 705 Output Total Balance 705 / 705 Weight Intake: IV 705 / 705 Cordarone Inj 450 MG In D5W Inj 250 / 250 241 ML @ 1 MG/MIN 33.33 mls/hr IV.CONT TITRATE PRN Rx#: [id number] Diprivan 1000 mg/100 ml Inj 1, 000 mg In 100 ml @ 5 MCG/KG/MIN 1.837 mls/hr IV.CONT TITRATE PRN Rx#:[id number] NS Inj 1,000 ML @ 84 mls/hr IV. CONT .[id number] [facility] Rx#:[id number] Azactam Inj 2 GM In NS Inj 100 100 / 100 ML @ 200 mls/hr IV.SIG Q8H [facility] Rx#:[id number] Magnesium Sulfate Inj 4 GM In NS Inj 92 ML @ 25 mls/hr IV.SIG ONCE ONE Rx#:[id number] Vancomycin Inj 1,000 MG In NS Inj 250 ML @ 250 mls/hr IV.SIG Q12H [facility] Rx#:[id number] fentaNYL 10 mcg/mL Premix Drip 250 / 250 2,500 mcg In 250 ml @ 50 MCG/HR 5 mls/hr IV.SIG TITRATE PRN Rx #:[id number] Keppra Inj 500 MG In NS Inj 100 105 / 105 ML @ 400 mls/hr IV.SIG Q12H [facility] Rx#:[id number] Output: Urine Amount (Catheter) Straight Gastric Drainage Orogastric Tube Other: # Bowel Movements Result Diagrams: 06/19/18 05:00 06/19/18 09:35 Objective Remarks: GENERAL: Frail middle-aged male who appears older than stated age, lying in bed , intubated HEENT: Normocephalic. Atraumatic. Pupils equal, round, reactive, conjugate. Mucous membranes are moist NECK: Trachea is midline. There is no JVD. CHEST: Equal chest rise. PRVC. 40% FiO2. PEEP of 5. CARDIOVASCULAR: tachycardic rate in the low 100s, regular rhythm. off vasopressors. ABDOMEN: Soft, nontender, nondistended. No guarding. MUSCULOSKELETAL: Pulses 2+. No peripheral edema. NEUROLOGICAL: RASS -2. awakens and follows commands. Assessment and Plan - Assessment and Plan Plan: Assessment: 62yM with stage IV small cell lung cancer with known mets to the brain who presents after seizure and has acute hypoxic respiratory failure and pneumonia, complicated by organ failure and septic shock. Now with progressive metastatic disease in the brain. will work towards extubation. remains critically ill. Neuro/Psych: Acute seizure History of brain metastases Acute metabolic encephalopathy MRI brain: 2 new brain mets Seizure precautions Goal of RASS 0 Daily sedation vacation Loaded with levetiracetam 1 g in ED. Current 500 mg twice daily EEG ordered. CV: Atrial fibrillation with rapid ventricular response Septic Shock Lactic acidosis Elevated Troponin Type II NSTEMI secondary to demand ischemia Phenylephrine drip to maintain map > 65mmHg amiodarone load and drip trop 0.26-->0.28 unlikely to be ACS. likely type 2 demand ischemia secondary to sepsis and afib tachycardia. will not anticoagulate: brain mets. 2D echocardiogram ordered. Cycle lactates until cleared. Resp: Acute hypoxic hypercapnic respiratory failure secondary aspiration PRVC start daily SBTs wean fio2 for goal spo2 > 90% vent bundle nebs CT chest revealed significant right-sided infiltrate with secretions. s/p bronch 06/17: thick white secretions GI: Acute protein calorie malnutrition- severe N.p.o. status NGT to LIWS Pantoprazole for GI prophylaxis Docusate sodium/senna 1 tablet bid for [place]. CT abd/pelvis revealed moderate ascites. : Straight catheterization as needed no indication for hill Endo: Sliding scale insulin Accu-Cheks to maintain euglycemia aspart insulin every 6 hours TSH Renal: Monitor urine output Accurate I's and O's Heme: stage IV Lung cancer with brain mets Elevated platelets Leukocytosis, Normocytic anemia Patient currently has a Neulasta patch on. Dr. Herrera his primary oncologist consult oncology to follow along Monitor CBC daily. Follow trends. ID: Aspiration pneumonia Currently vancomycin, aztreonam and metronidazole since allergy status unknown Blood cultures x2, sputum ordered MSK: Physical Therapy evaluate and treat FEN: Hypomagnesemia Replace electrolytes as clinically indicated Access -Utilize peripheral IV. 06/18 CVL Prophylaxis -GI-Pantoprazole -DVT -SCD/holding pharmacologic DVT prophylaxis in the setting of the brain masses
[2018-06-19] MEDS: Pantoprazole Inj 40 MG Vial IV.PUSH SCH (21:23)
--- NOTE | 2018-06-20 00:35 | ECG ---
Date Performed: 06/17/2018 Time Performed: 16:09:18 PTAGE: 89 years EKG: ATRIAL FIBRILLATION WITH RAPID VENTRICULAR RESPONSE SEPTAL MYOCARDIAL INFARCTION ABNORMAL E CG INTERPRETATION BASED ON A DEFAULT AGE OF 39 YEARS NO PREVIOUS TRACING DOCTOR: Dewayne Cox Interpretating Date/Time 06/20/2018 00:34:41
[2018-06-20 05:15] LABS: Hematocrit 21.7 % (39.0-51.0); Mean Corpuscular HGB Conc 32.3 % (32.0-36.0); Mean Corpuscular Hemoglobin 29.4 pg (27.0-34.0); Mean Corpuscular Volume 90.9 fL (80.0-100.0); Mean Platelet Volume 7.4 fL (7.0-11.0); Platelet Count 263 th/mm3 (150-450); Red Blood Count 2.39 mil/mm3 (4.50-5.90); Red Cell Distribution Width 23.1 % (11.6-17.2); White Blood Count 45.2 th/mm3 (4.0-11.0)
[2018-06-20] MEDS: Chlorhexidine Gluconate 2% 1 Pack (2 Cloths) TOPICAL SCH (05:22)
[2018-06-20] MEDS: Oral Hygiene Kit OROPHARYNG SCH ×4 (05:22→23:46)
[2018-06-20] MEDS: metroNIDAZOLE 500 MG Tablet PO SCH ×5 (05:23→23:45)
[2018-06-20 05:33] LABS: INR 1.2 Ratio; Prothrombin Time 12.5 sec (9.8-11.6)
[2018-06-20 05:41] LABS: Anion Gap 9 meq/L (5-15); Aspartate Aminotransferase 29 U/L (15-37); Blood Urea Nitrogen 13 mg/dL (7-18); Carbon Dioxide 24.2 meq/L (21.0-32.0); Chloride 107 meq/L (98-107); Glomerular Filtration Rate Greater Than 89 mL/min (>89); Glucose,Random 80 mg/dL (74-106); Magnesium 1.6 mg/dL (1.5-2.5); Potassium 3.5 meq/L (3.5-5.1); Sodium 140 meq/L (136-145)
[2018-06-20] MEDS: Heparin - SQ 10,000 UNITS/ML Vial SQ SCH ×4 (05:41→23:21)
[2018-06-20 05:43] LABS: Alanine Aminotransferase 15 U/L (12-78); Phosphorus 2.6 mg/dL (2.5-4.9)
[2018-06-20 05:45] LABS: Alkaline Phosphatase 82 U/L (45-117); Total Protein 5.7 g/dL (6.4-8.2); Vancomycin,Trough 20.8 mcg/mL (5.0-10.0)
[2018-06-20] MEDS: Aztreonam Inj 2 GM in Sodium Chloride 0.9% Inj 100 ML IV.SIG SCH ×3 (06:26→23:44)
[2018-06-20] MEDS: Sod Chloride 0.9% Inj 1,000 ML IV.CONT SCH ×2 (06:26→18:37)
[2018-06-20] MEDS: Insulin NovoLIN Regular Correctional Sugar Inj SQ SCH ×4 (06:26→23:46)
[2018-06-20] MEDS: Vancomycin Inj 750 MG in Sodium Chlor 0.9% Inj 250 ML IV.SIG SCH ×2 (06:26→19:14)
[2018-06-20] MEDS ORDERED: Pharmacy Ordered Lab Info OTHER ONE (06:45)
[2018-06-20] MEDS: Chlorhexidine 0.12% Oral Kit 15 ML UDC OROPHARYNG SCH ×2 (08:25→20:54)
[2018-06-20] MEDS: Senna/Docusate Sodium 8.6/50 MG Tablet PO SCH ×2 (08:26→20:55)
--- NOTE | 2018-06-20 13:56 | P.DIET ---
Nutritional Evaluation Type of nutrition evaluation: initial Nutrition consult regarding: Diet Evaluation Screening comments: 06/20/18: NPO x3 Objective - Diagnosis brain and lung tumor - Objective Body Mass Index: 14.8 % IBW: 64 (IBW = 142lb) Body Weight Used for Calculations: Actual Energy Needs - Lower Range (kCal/kg): 40 Energy Needs - Upper Range (kCal/kg): 45 Lower Limit kCal/kg (kCals): 1,660 Upper Limit kCal/kg (kCals): 1,868 Lower Limit Protein Factor (Grams per Kg): 1.2 Upper Limit Protein Factor (Grams per Kg): 1.5 Lower Protein Needs (Protein): 50 Upper Protein Needs (Protein): 62 Fluid Factor (ml/kg): 30 Estimated Fluid Needs (ml): 1,245 Dietitian Reviewed in Medical Record: Current diet, Curent medications, Intake & Output, Labs, Medical history Diet Order: NPO Objective Comments: PMH: brain and lung cancer, hx of chemotherapy, osteomyelitis Labs: POC glucose 118 Assessment Assessment: Pt currently at nutritional risk r/t NPO x3 status and low BMI (14.8). Pt is intubated and sedated with fentanyl, propofol. RD to recommend TF if pt continues to be NPO. Continue to monitor NPO status. Labs and GI assessment reviewed. Dietitian following. Additional recs depending on medical course. Recommendations: 1. RD to recommend TF if pt continues to be NPO 2. Continue to monitor NPO status 3. Additional recs depending on medical course Dietitian to Monitor: Lab values, Intake & Output, Weight change, Diet advancement, Medical course
[2018-06-20] MEDS: Morphine Inj 4 MG/ML Vial IV.PUSH PRN ×2 (15:09→17:47)
--- NOTE | 2018-06-20 16:23 | P.PNONC ---
Subjective Interval history: Afebrile. Patient awake and alert on approach. He complains about his prior bed being uncomfortable, he is now in a new bed and has no complaints. He asked "when will I get chemo" Objective Vital Signs/Intake & Output: Vital Signs 06/19/18 16:30 06/19/18 16:45 06/19/18 17:00 Temperature Pulse Rate 102 H 103 H 105 H Respiratory Rate 16 16 16 Blood Pressure 103/62 109/62 112/63 Pulse Oximetry 95 95 96 06/19/18 17:15 06/19/18 17:30 06/19/18 17:45 Temperature Pulse Rate 109 H 109 H 104 H Respiratory Rate 21 20 16 Blood Pressure 116/77 134/60 119/58 L Pulse Oximetry 95 92 L 94 L 06/19/18 18:00 06/19/18 18:15 06/19/18 18:30 Temperature Pulse Rate 106 H 104 H 103 H Respiratory Rate 15 16 16 Blood Pressure 119/59 L 116/61 119/64 Pulse Oximetry 94 L 93 L 94 L 06/19/18 18:45 06/19/18 19:00 06/19/18 19:01 Temperature Pulse Rate 103 H 104 H 103 H Respiratory Rate 16 16 14 Blood Pressure 118/61 126/64 Pulse Oximetry 95 95 95 06/19/18 19:15 06/19/18 19:30 06/19/18 19:45 Temperature Pulse Rate 104 H 106 H 107 H Respiratory Rate 15 15 16 Blood Pressure 121/65 128/65 136/63 Pulse Oximetry 95 95 95 06/19/18 20:00 06/19/18 20:15 06/19/18 20:22 Temperature 98.6 F Pulse Rate 106 H 105 H 104 H Respiratory Rate 15 15 18 Blood Pressure 133/60 126/60 Pulse Oximetry 95 95 06/19/18 20:30 06/19/18 20:45 06/19/18 21:00 Temperature Pulse Rate 113 H 107 H 108 H Respiratory Rate 23 13 20 Blood Pressure 140/65 125/73 121/65 Pulse Oximetry 95 94 L 93 L 06/19/18 21:15 06/19/18 21:30 06/19/18 21:45 Temperature Pulse Rate 108 H 105 H 104 H Respiratory Rate 20 21 18 Blood Pressure 127/73 121/59 L 120/61 Pulse Oximetry 91 L 93 L 93 L 06/19/18 22:00 06/19/18 22:15 06/19/18 22:30 Temperature Pulse Rate 105 H 106 H 109 H Respiratory Rate 20 21 17 Blood Pressure 123/63 125/69 128/60 Pulse Oximetry 94 L 93 L 94 L 06/19/18 22:45 06/19/18 23:00 06/19/18 23:15 Temperature Pulse Rate 109 H 111 H 106 H Respiratory Rate 23 18 17 Blood Pressure 135/60 130/65 128/61 Pulse Oximetry 93 L 94 L 93 L 06/19/18 23:30 06/19/18 23:45 06/19/18 23:55 Temperature Pulse Rate 106 H 110 H 106 H Respiratory Rate 8 L 19 20 Blood Pressure 139/60 116/61 Pulse Oximetry 94 L 94 L 06/20/18 00:00 06/20/18 00:15 06/20/18 00:30 Temperature 99.3 F Pulse Rate 109 H 109 H 110 H Respiratory Rate 22 15 11 L Blood Pressure 138/62 138/62 136/65 Pulse Oximetry 95 94 L 94 L 06/20/18 00:45 06/20/18 01:00 06/20/18 02:00 Temperature Pulse Rate 112 H 119 H 119 H Respiratory Rate 22 37 H 28 H Blood Pressure 145/69 H 151/72 H 158/71 H Pulse Oximetry 93 L 93 L 06/20/18 03:00 06/20/18 03:01 06/20/18 04:00 Temperature 99.5 F Pulse Rate 115 H 122 H 116 H Respiratory Rate 28 H 45 H 22 Blood Pressure 122/59 L 153/82 H Pulse Oximetry 79 L 80 L 91 L 06/20/18 04:01 06/20/18 04:42 06/20/18 05:00 Temperature Pulse Rate 118 H 102 H 118 H Respiratory Rate 26 H 19 36 H Blood Pressure 153/82 H Pulse Oximetry 91 L 95 06/20/18 05:01 06/20/18 06:00 06/20/18 07:00 Temperature Pulse Rate 116 H 120 H 117 H Respiratory Rate 34 H 23 18 Blood Pressure 150/67 H 134/85 150/90 H Pulse Oximetry 95 92 L 93 L 06/20/18 08:00 06/20/18 09:00 06/20/18 09:01 Temperature 98.7 F Pulse Rate 115 H 120 H 119 H Respiratory Rate 20 19 31 H Blood Pressure 163/80 H 155/76 H Pulse Oximetry 96 95 94 L 06/20/18 10:00 06/20/18 10:01 06/20/18 11:00 Temperature Pulse Rate 115 H 116 H 116 H Respiratory Rate 22 23 16 Blood Pressure 160/82 H 166/84 H Pulse Oximetry 92 L 95 06/20/18 12:00 06/20/18 12:05 06/20/18 13:00 Temperature 98.5 F Pulse Rate 123 H 108 H 118 H Respiratory Rate 36 H 21 23 Blood Pressure 164/91 H 164/91 H Pulse Oximetry 80 L 90 L 91 L 06/20/18 13:01 06/20/18 14:00 06/20/18 15:00 Temperature 98.2 F Pulse Rate 116 H 116 H 120 H Respiratory Rate 23 20 25 H Blood Pressure 168/96 H 153/75 H Pulse Oximetry 91 L 91 L 06/20/18 15:11 06/20/18 16:00 Temperature Pulse Rate 114 H Respiratory Rate 28 H 27 H Blood Pressure 159/85 H Pulse Oximetry 95 Intake & Output 06/19/18 06/20/18 06/20/18 18:59 06:59 18:59 Intake Total 705 / 705 1715.0 / 1715.0 355 / 355 Output Total 1030 / 1030 Balance 705 / 705 685.0 / 685.0 355 / 355 Weight 41.5 kg Intake: IV 705 / 705 1715.0 / 1715.0 355 / 355 Cordarone Inj 450 MG In D5W Inj 250 / 250 250 / 250 241 ML @ 1 MG/MIN 33.33 mls/hr IV.CONT TITRATE PRN Rx#: [id number] NS Inj 1,000 ML @ 84 mls/hr IV. 1000 / 1000 CONT .[id number] FLOWER Rx#:[id number] Azactam Inj 2 GM In NS Inj 100 100 / 100 200 / 200 ML @ 200 mls/hr IV.SIG Q8H FLOWER Rx#:[id number] Vancomycin Inj 750 MG In NS Inj 515.0 / 515.0 250 ML @ 250 mls/hr IV.SIG Q8H FLOWER Rx#:[id number] fentaNYL 10 mcg/mL Premix Drip 250 / 250 2,500 mcg In 250 ml @ 50 MCG/HR 5 mls/hr IV.SIG TITRATE PRN Rx #:[id number] Keppra Inj 500 MG In NS Inj 100 105 / 105 105 / 105 ML @ 400 mls/hr IV.SIG Q12H FLOWER Rx#:[id number] Output: Urine 1030 / 1030 Other: Date of Last Bowel Movement 06/20/18 06/20/18 # Bowel Movements 1 Result Diagrams: 06/20/18 04:58 06/20/18 04:58 Laboratory Results: Laboratory Results - last 24 hr 06/19/18 06/19/18 06/20/18 17:14 23:51 04:58 WBC RBC Hgb Hct MCV MCH MCHC RDW Plt Count MPV PT INR Sodium 140 Potassium 3.5 Chloride 107 Carbon Dioxide 24.2 Anion Gap 9 BUN 13 Creatinine 0.57 L Estimated GFR Greater than 89 POC Glucose 122 H 101 Random Glucose 80 Calcium 8.0 L Phosphorus 2.6 Magnesium 1.6 Total Bilirubin 0.6 AST 29 ALT 15 Alkaline Phosphatase 82 Total Protein 5.7 L Albumin 2.0 L Vancomycin Trough 20.8 H 06/20/18 06/20/18 06/20/18 04:58 04:58 12:25 WBC 45.2 H RBC 2.39 L Hgb 7.0 L Hct 21.7 L MCV 90.9 MCH 29.4 MCHC 32.3 RDW 23.1 H Plt Count 263 MPV 7.4 PT 12.5 H INR 1.2 Sodium Potassium Chloride Carbon Dioxide Anion Gap BUN Creatinine Estimated GFR POC Glucose 118 H Random Glucose Calcium Phosphorus Magnesium Total Bilirubin AST ALT Alkaline Phosphatase Total Protein Albumin Vancomycin Trough Culture Results: Microbiology 06/18/18 04:20 Acid Fast Bacilli Smear - Final Bronchial Washings - Bronchial No acid fast bacilli seen 06/18/18 04:20 Fungal Smear - Final Bronchial Washings - Bronchial No fungal elements seen 06/18/18 04:20 Gram Stain - Final Bronchial - Bronchial Bronchial Culture - Final Rare growth normal respiratory gallo 06/18/18 00:20 Gram Stain - Final Sputum - Endotracheal Sputum Culture - Final Rare growth normal respiratory gallo 06/17/18 17:30 Aerobic Blood Culture - Preliminary Blood - Line No growth in 3 days Anaerobic Blood Culture - Preliminary No growth in 3 days 06/17/18 17:30 Aerobic Blood Culture - Preliminary Blood - Line No growth in 3 days Anaerobic Blood Culture - Preliminary No growth in 3 days Imaging Studies: Impressions Chest X-Ray 06/17/18 16:19 CONCLUSION: 1. Endotracheal tube in appropriate position with tip measuring 3.8 cm from the mecca. 2. Right basilar opacity with an appearance suggesting right lower lobe collapse. There is likely a trace right pleural fluid as well. These findings will be further characterized on the currently ordered chest CT. Head CT 06/17/18 16:19 CONCLUSION: 1. Negative CT Head non contrast other than known sinus surgery. . Cervical Spine CT 06/17/18 16:25 CONCLUSION: No acute cervical spine abnormality is identified. There is multilevel degenerative disc disease. Chest CT 06/17/18 16:25 CONCLUSION: 1. Near-complete collapse of the right lower lobe with a large mucous plug in the right lower lobe bronchus. There is quite dense material in the right lower lobe possible aspiration. The ET tube is in good position. The rest of the lungs are clear. There is a small pleural effusion Abdomen/Pelvis CT 06/17/18 19:46 CONCLUSION: 1. Moderate anasarca and mild ascites in the abdomen and pelvis with periportal edema and some pericholecystic fluid. 2. Dense consolidation and mucoid plugging in the right lower lobe with small right effusion. Patchy groundglass airspace disease in both lower lobes as well , probably infectious or post aspiration in nature. 3. Moderate anasarca. Kennedy catheter in bladder. Chest CT 06/17/18 19:46 CONCLUSION: 1. Dense consolidation involving the right lower lobe with obliteration of the right epicardial fat concerning for possible neoplasm in this region. There also is possible adenopathy in the right epicardial space. The patient could be further evaluated with PET FDG study. 2. Alveolar consolidation in the right upper lobe, left upper lobe, and left lower lobe likely related to underlying consolidation/bronchopneumonia. Face CT 06/17/18 19:46 CONCLUSION: 1. No acute facial bone fracture. Mucosal thickening in the paranasal sinuses with previous sinus surgery. Chest X-Ray 06/17/18 20:35 CONCLUSION: ET tube in good position. There is mild right pleural effusion. Increased interstitial markings likely related to edema. There is some further alveolar consolidation or atelectasis in the right lung. Chest X-Ray 06/17/18 23:18 CONCLUSION: Left jugular central line placement without complication Slight interval worsening in right lung pleural-parenchymal changes Head MRI 06/18/18 00:00 CONCLUSION: 1. Small subcortical metastatic lesions have developed, one of the left frontal lobe and one of the left parietal lobe. 2. 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 3. No bleed or acute/subacute infarct. 4. Chronic pansinusitis. Chest X-Ray 06/18/18 04:30 CONCLUSION: Slightly improved aeration. No pneumothorax. Chest X-Ray 06/19/18 05:00 CONCLUSION: Slightly improving aeration Medications: Active Medications Generic Name Dose Route Start Last Admin Trade Name Freq PRN Reason Stop Dose Admin Albuterol 1 ampul 06/17/18 20:00 06/20/18 11:48 Duoneb Neb (Flower) NEB 1 ampul Q4HR NEB FLOWER Administration Chlorhexidine Gluconate 15 ml 06/17/18 20:00 06/20/18 08:25 Peridex 0.12% Oral Kit OROPHARYNG 15 ml BID@0800,2000 FLOWER Administration Chlorhexidine Gluconate 3 pack 06/18/18 04:00 06/20/18 05:22 Chlorhexidine 2% Cloth TOPICAL 06/23/18 03:59 Not Given DAILY@0400 FLOWER Dexamethasone 4 mg 06/20/18 09:00 06/20/18 09:55 Decadron PO 4 mg BID FLOWER Administration Heparin Sodium (Porcine) 5,000 units 06/17/18 20:00 06/20/18 08:24 Heparin Inj SQ 5,000 units Q12H FLOWER Administration Fentanyl 2,500 mcg in 250 mls @ 5 mls/hr 06/17/18 18:49 06/19/18 16:00 Fentanyl 10 Mcg/Ml Premix Drip IV.SIG 100 mcg/hr TITRATE PRN 10 mls/hr Per Protocol Titration Protocol 50 MCG/HR Sodium Chloride 1,000 mls @ 84 mls/hr 06/17/18 19:00 06/20/18 06:26 Ns Inj IV.CONT Not Given .[id number] FLOWER Propofol 1,000 mg in 100 mls @ 1.837 mls/hr 06/17/18 18:49 06/19/18 01:20 EDT Diprivan 1000 Mg/100 Ml Inj IV.CONT Infused TITRATE PRN Titration Per Protocol Protocol 5 MCG/KG/MIN Phenylephrine HCl 160 mg/ 500 mls @ 7.5 mls/hr 06/17/18 18:54 06/18/18 21:00 Sodium Chloride IV.CONT 0 mcg/min TITRATE PRN 0 mls/hr See protol Titration Protocol 40 MCG/MIN Levetiracetam 500 mg/ Sodium 105 mls @ 400 mls/hr 06/18/18 08:00 06/20/18 08: 27 Chloride IV.SIG 400 mls/hr Q12H FLOWER Administration Aztreonam 2 gm/ Sodium 100 mls @ 200 mls/hr 06/17/18 23:00 06/20/18 06:26 Chloride IV.SIG 100 mls/hr Q8H FLOWER Administration Amiodarone HCl 450 mg/ 250 mls @ 33.33 mls/hr 06/18/18 08:00 06/20/18 09:56 Dextrose IV.CONT 0.5 mg/min TITRATE PRN 16.66 mls/hr Per Protocol Administration Protocol 1 MG/MIN Insulin Human Regular 0 units 06/18/18 18:00 06/20/18 12:30 Novolin R Correctional Sugar Inj SQ Not Given Q6HR FLOWER Protocol Metronidazole 500 mg 06/18/18 00:00 06/20/18 11:08 Flagyl PO 500 mg Q6HR FLOWER Administration Midazolam HCl 10 mg 06/18/18 16:00 06/19/18 14:37 Versed Inj IV.PUSH 10 mg ONCE PRN Administration AGITATION Miscellaneous Medication 1 each 06/18/18 00:00 06/20/18 13:52 OROPHARYNG 1 each 0000,0400,1200,1600 FLOWER Administration Morphine Sulfate 4 mg 06/20/18 13:06 06/20/18 15:09 Morphine Inj IV.PUSH 4 mg Q2H PRN Administration PAIN 1-10 Pantoprazole Sodium 40 mg 06/17/18 20:00 06/19/18 21:23 Protonix Inj IV.PUSH 40 mg Q24H FLOWER Administration Potassium Phosphate 2,000 mg 06/17/18 18:49 06/19/18 15:31 K-Phos Original PO 2,000 mg Q4H PRN Administration Phosphorus Less Than 2.5 mg/dL Senna/Docusate Sodium 1 tab 06/17/18 21:00 06/20/18 08:26 Heather-Colace PO 1 tab BID FLOWER Administration Sodium Chloride 2 ml 06/17/18 21:00 06/20/18 08:26 Ns Flush IV.FLUSH 2 ml BID FLOWER Administration Sodium Chloride 2 ml 06/18/18 09:00 06/20/18 08:26 Ns Flush IV.FLUSH 2 ml DAILY FLOWER Administration Objective Remarks: GENERAL: Chronically ill-appearing male patient, in no acute distress. SKIN: Warm and dry. Small skin tears noted to right upper extremity. HEAD: Normocephalic. EYES: No scleral icterus. No injection or drainage. NECK: Supple, trachea midline. CARDIOVASCULAR: Irregularly irregular rhythm, tachycardic,hr 114. RESPIRATORY: Posterior breath sounds clear, equal bilaterally. No accessory muscle use. GASTROINTESTINAL: Abdomen soft, non-tender, nondistended. EXTREMITIES: No cyanosis, or edema. MUSCULOSKELETAL: Adequate muscle tone. NEUROLOGICAL: No obvious focal deficit. Awake, alert, and oriented x3. PSYCHIATRIC: Appropriate mood and affect; insight and judgment normal. Assessment/Plan - Plan 62-year-old male with history of metastatic small cell lung cancer who was brought in by his neighbor after being found face down on the floor. He was last seen on 06/14 prior to the start of his chemotherapy. He was given a Neulasta on body injector after the etoposide and [employer]-16. 1. Status post bronchoscopy, cytology pending. 2. Patient evaluated by Dr. wolff, recommends whole brain radiation. 3. Continue Decadron 4 mg twice daily. 4. Leukocytosis, secondary to Neulasta. - Attending Statement The exam, history, and the medical decision-making described in the above note were completed with the assistance of the mid-level provider. I reviewed and agree with the findings presented. I attest that I had a [id number] encounter with the patient on the same day, and personally performed and documented my assessment and findings in the medical record.Pt was extubated. No CP. SOB stable. No Headache. Reviewed MRI with pt. He is awaitn whole brain XRT. Will start him on decadron. Continue supportive care. Monitor CBC as pt had recent chemotherapy. WIll transfuse if Hgb <7.
--- NOTE | 2018-06-20 18:10 | P.PNCC ---
Subjective Subjective Remarks/Hospital Course: Hospital Course: This is a male. Unknown age. Date of admission 06/17/2018. Past medical history includes brain cancer stage III according to brother, lung cancer presents to [facility] with acute onset of altered mental status. While at home today, this patient suddenly fell face down at home, had seizure episode. When EMS came the treated him with Versed, patient was brought to emergency room unconscious, sedated. His saturation was 88-90 on room air, as per EMS patient brother ask to save his life, at this time patient is full code. IV line placed, patient was intubated, placed on ventilation machine. Pupils are 3 mm equal sluggish. Has abrasion over his forehead and bridge of the nose. There is significant rhonchi bilateral during auscultation. Heart rate is 170, rapid A. fib on EKG. Patient treated with Cardizem. Patient did self extubate was reintubated due to similar findings. CT brain no acute findings. CT C-spine no acute findings. CT abdomen/pelvis revealed ascites. In discussion with brother, patient has stage III of brain cancer/lung cancer but had "improved somewhat over the past month. He wishes him to be full code at the present time. His name is been lost to him at the present time however. Subjective: 06/18: By EMS records: Patient has been identified as Lorenzo Mendez ( 1955) . Patient has been recently admitted back in 2017 for pneumonia and before that in 02/2018. in February, the patient named Bhavin Dinero ([phone]) as his healthcare surrogate (best friend). I talked with Mr. Dinero and updated him about his condition and his overall poor prognosis. He is going to call the remainder of Mr. Mendez family today and will get back with me. Patient is now hypotensive and we are starting vasopressors. he is also in afib RVR requiring amiodarone. no improvements in his clinical status. required emergent bronch overnight for worsening aeration and mucous plugging. ROS unobtainable from the patient. 06/19: MRI overnight with multiple new metastases. however, awake and following commands this morning. will SBT and wean to see if we can successfully extubate him. 06/20: Extubated yesterday, tolerating room air currently. Complaining of significant pain. Wants to resume his home dose of morphine extended release and oxycodone. Wants to eat. Objective Vital Signs / I&O: Vital Signs 06/19/18 18:15 06/19/18 18:30 06/19/18 18:45 Temperature Pulse Rate 104 H 103 H 103 H Respiratory Rate 16 16 16 Blood Pressure 116/61 119/64 118/61 Pulse Oximetry 93 L 94 L 95 06/19/18 19:00 06/19/18 19:01 06/19/18 19:15 Temperature Pulse Rate 104 H 103 H 104 H Respiratory Rate 16 14 15 Blood Pressure 126/64 121/65 Pulse Oximetry 95 95 95 06/19/18 19:30 06/19/18 19:45 06/19/18 20:00 Temperature 98.6 F Pulse Rate 106 H 107 H 106 H Respiratory Rate 15 16 15 Blood Pressure 128/65 136/63 133/60 Pulse Oximetry 95 95 95 06/19/18 20:15 06/19/18 20:22 06/19/18 20:30 Temperature Pulse Rate 105 H 104 H 113 H Respiratory Rate 15 18 23 Blood Pressure 126/60 140/65 Pulse Oximetry 95 95 06/19/18 20:45 06/19/18 21:00 06/19/18 21:15 Temperature Pulse Rate 107 H 108 H 108 H Respiratory Rate 13 20 20 Blood Pressure 125/73 121/65 127/73 Pulse Oximetry 94 L 93 L 91 L 06/19/18 21:30 06/19/18 21:45 06/19/18 22:00 Temperature Pulse Rate 105 H 104 H 105 H Respiratory Rate 21 18 20 Blood Pressure 121/59 L 120/61 123/63 Pulse Oximetry 93 L 93 L 94 L 06/19/18 22:15 06/19/18 22:30 06/19/18 22:45 Temperature Pulse Rate 106 H 109 H 109 H Respiratory Rate 21 17 23 Blood Pressure 125/69 128/60 135/60 Pulse Oximetry 93 L 94 L 93 L 06/19/18 23:00 06/19/18 23:15 06/19/18 23:30 Temperature Pulse Rate 111 H 106 H 106 H Respiratory Rate 18 17 8 L Blood Pressure 130/65 128/61 139/60 Pulse Oximetry 94 L 93 L 94 L 06/19/18 23:45 06/19/18 23:55 06/20/18 00:00 Temperature 99.3 F Pulse Rate 110 H 106 H 109 H Respiratory Rate 19 20 22 Blood Pressure 116/61 138/62 Pulse Oximetry 94 L 95 06/20/18 00:15 06/20/18 00:30 06/20/18 00:45 Temperature Pulse Rate 109 H 110 H 112 H Respiratory Rate 15 11 L 22 Blood Pressure 138/62 136/65 145/69 H Pulse Oximetry 94 L 94 L 93 L 06/20/18 01:00 06/20/18 02:00 06/20/18 03:00 Temperature Pulse Rate 119 H 119 H 115 H Respiratory Rate 37 H 28 H 28 H Blood Pressure 151/72 H 158/71 H Pulse Oximetry 93 L 79 L 06/20/18 03:01 06/20/18 04:00 06/20/18 04:01 Temperature 99.5 F Pulse Rate 122 H 116 H 118 H Respiratory Rate 45 H 22 26 H Blood Pressure 122/59 L 153/82 H 153/82 H Pulse Oximetry 80 L 91 L 91 L 06/20/18 04:42 06/20/18 05:00 06/20/18 05:01 Temperature Pulse Rate 102 H 118 H 116 H Respiratory Rate 19 36 H 34 H Blood Pressure 150/67 H Pulse Oximetry 95 95 06/20/18 06:00 06/20/18 07:00 06/20/18 08:00 Temperature 98.7 F Pulse Rate 120 H 117 H 115 H Respiratory Rate 23 18 20 Blood Pressure 134/85 150/90 H 163/80 H Pulse Oximetry 92 L 93 L 96 06/20/18 09:00 06/20/18 09:01 06/20/18 10:00 Temperature Pulse Rate 120 H 119 H 115 H Respiratory Rate 19 31 H 22 Blood Pressure 155/76 H Pulse Oximetry 95 94 L 92 L 06/20/18 10:01 06/20/18 11:00 06/20/18 12:00 Temperature 98.5 F Pulse Rate 116 H 116 H 123 H Respiratory Rate 23 16 36 H Blood Pressure 160/82 H 166/84 H 164/91 H Pulse Oximetry 95 80 L 06/20/18 12:05 06/20/18 13:00 06/20/18 13:01 Temperature Pulse Rate 108 H 118 H 116 H Respiratory Rate 21 23 23 Blood Pressure 164/91 H 168/96 H Pulse Oximetry 90 L 91 L 91 L 06/20/18 14:00 06/20/18 15:00 06/20/18 15:11 Temperature 98.2 F Pulse Rate 116 H 120 H Respiratory Rate 20 25 H 28 H Blood Pressure 153/75 H Pulse Oximetry 91 L 06/20/18 16:00 Temperature Pulse Rate 114 H Respiratory Rate 27 H Blood Pressure 159/85 H Pulse Oximetry 95 Intake & Output 06/19/18 06/20/18 06/20/18 18:59 06:59 18:59 Intake Total 705 / 705 1715.0 / 1715.0 455 / 455 Output Total 1030 / 1030 Balance 705 / 705 685.0 / 685.0 455 / 455 Weight 41.5 kg Intake: IV 705 / 705 1715.0 / 1715.0 455 / 455 Cordarone Inj 450 MG In D5W Inj 250 / 250 250 / 250 241 ML @ 1 MG/MIN 33.33 mls/hr IV.CONT TITRATE PRN Rx#: [id number] NS Inj 1,000 ML @ 84 mls/hr IV. 1000 / 1000 CONT .[id number] SUSIE Rx#:[id number] Azactam Inj 2 GM In NS Inj 100 100 / 100 200 / 200 100 / 100 ML @ 200 mls/hr IV.SIG Q8H SUSIE Rx#:[id number] Vancomycin Inj 750 MG In NS Inj 515.0 / 515.0 250 ML @ 250 mls/hr IV.SIG Q8H SUSIE Rx#:[id number] fentaNYL 10 mcg/mL Premix Drip 250 / 250 2,500 mcg In 250 ml @ 50 MCG/HR 5 mls/hr IV.SIG TITRATE PRN Rx #:[id number] Keppra Inj 500 MG In NS Inj 100 105 / 105 105 / 105 ML @ 400 mls/hr IV.SIG Q12H SUSIE Rx#:[id number] Output: Urine 1030 / 1030 Other: Date of Last Bowel Movement 06/20/18 06/20/18 # Bowel Movements 1 Result Diagrams: 06/20/18 04:58 06/20/18 04:58 Objective Remarks: GENERAL: Frail middle-aged male who appears older than stated age, lying in bed , awake and alert HEENT: Normocephalic. Atraumatic. Pupils equal, round, reactive, conjugate. Mucous membranes are moist NECK: Trachea is midline. There is no JVD. CHEST: Good air entry bilaterally, no wheezing or crackles CARDIOVASCULAR: tachycardic rate in the low 100s, regular rhythm. off vasopressors. ABDOMEN: Soft, nontender, nondistended. No guarding. MUSCULOSKELETAL: Pulses 2+. No peripheral edema. NEUROLOGICAL: Awake alert oriented x3, nonfocal grossly Assessment and Plan - Assessment and Plan Plan: Assessment: 62yM with stage IV small cell lung cancer with known mets to the brain who presents after seizure and has acute hypoxic respiratory failure and pneumonia, complicated by organ failure and septic shock. Now with progressive metastatic disease in the brain. will work towards extubation. remains critically ill. Neuro/Psych: Acute seizure History of brain metastases Acute metabolic encephalopathy MRI brain: 2 new brain mets Seizure precautions Goal of RASS 0 Daily sedation vacation Loaded with levetiracetam 1 g in ED. Current 500 mg twice daily EEG ordered. CV: Atrial fibrillation with rapid ventricular response Septic Shock Lactic acidosis Elevated Troponin Type II NSTEMI secondary to demand ischemia Phenylephrine drip to maintain map > 65mmHg amiodarone load and drip trop 0.26-->0.28 unlikely to be ACS. likely type 2 demand ischemia secondary to sepsis and afib tachycardia. will not anticoagulate: brain mets. 2D echocardiogram ordered. Cycle lactates until cleared. Resp: Acute hypoxic hypercapnic respiratory failure secondary aspiration PRVC start daily SBTs wean fio2 for goal spo2 > 90% vent bundle nebs CT chest revealed significant right-sided infiltrate with secretions. s/p bronch 06/17: thick white secretions GI: Acute protein calorie malnutrition- severe N.p.o. status NGT to LIWS Pantoprazole for GI prophylaxis Docusate sodium/senna 1 tablet bid for [place]. CT abd/pelvis revealed moderate ascites. : Straight catheterization as needed no indication for hill Endo: Sliding scale insulin Accu-Cheks to maintain euglycemia aspart insulin every 6 hours TSH Renal: Monitor urine output Accurate I's and O's Heme: stage IV Lung cancer with brain mets Elevated platelets Leukocytosis, Normocytic anemia Patient currently has a Neulasta patch on. Dr. Herrera his primary oncologist consult oncology to follow along Monitor CBC daily. Follow trends. ID: Aspiration pneumonia Currently vancomycin, aztreonam and metronidazole since allergy status unknown Blood cultures x2, sputum ordered MSK: Physical Therapy evaluate and treat FEN: Hypomagnesemia Replace electrolytes as clinically indicated Access -Utilize peripheral IV. 06/18 CVL Prophylaxis -GI-Pantoprazole -DVT -SCD/holding pharmacologic DVT prophylaxis in the setting of the brain masses
[2018-06-20] MEDS: Pantoprazole Inj 40 MG Vial IV.PUSH SCH (20:53)
[2018-06-20] MEDS: Morphine Sulfate 100 MG SR Tablet PO SCH (20:54)
[2018-06-21 04:50] LABS: Hematocrit 26.8 % (39.0-51.0); Hemoglobin 8.7 gm/dL (13.0-17.0); Mean Corpuscular HGB Conc 32.4 % (32.0-36.0); Mean Corpuscular Hemoglobin 29.7 pg (27.0-34.0); Mean Corpuscular Volume 91.9 fL (80.0-100.0); Mean Platelet Volume 7.3 fL (7.0-11.0); Platelet Count 259 th/mm3 (150-450); Red Blood Count 2.92 mil/mm3 (4.50-5.90); Red Cell Distribution Width 22.9 % (11.6-17.2); White Blood Count 45.5 th/mm3 (4.0-11.0)
[2018-06-21 04:51] LABS: INR 1.2 Ratio; Prothrombin Time 11.8 sec (9.8-11.6)
[2018-06-21] MEDS: Morphine Inj 4 MG/ML Vial IV.PUSH PRN ×4 (04:54→20:18)
[2018-06-21] MEDS: Chlorhexidine Gluconate 2% 1 Pack (2 Cloths) TOPICAL SCH (04:54)
[2018-06-21] MEDS: Oral Hygiene Kit OROPHARYNG SCH ×4 (04:55→23:07)
[2018-06-21 04:57] LABS: Alanine Aminotransferase 17 U/L (12-78); Albumin 2.1 g/dL (3.4-5.0); Anion Gap 9 meq/L (5-15); Aspartate Aminotransferase 26 U/L (15-37); Blood Urea Nitrogen 18 mg/dL (7-18); Carbon Dioxide 27.4 meq/L (21.0-32.0); Chloride 105 meq/L (98-107); Glomerular Filtration Rate Greater Than 89 mL/min (>89); Glucose,Random 116 mg/dL (74-106); Magnesium 1.6 mg/dL (1.5-2.5); Potassium 3.5 meq/L (3.5-5.1); Sodium 141 meq/L (136-145)
[2018-06-21 04:59] LABS: Alkaline Phosphatase 99 U/L (45-117)
[2018-06-21] MEDS: Vancomycin Inj 750 MG in Sodium Chlor 0.9% Inj 250 ML IV.SIG SCH ×2 (05:04→18:23)
[2018-06-21] MEDS: metroNIDAZOLE 500 MG Tablet PO SCH ×4 (05:04→23:06)
[2018-06-21] MEDS: Aztreonam Inj 2 GM in Sodium Chloride 0.9% Inj 100 ML IV.SIG SCH ×3 (06:13→22:06)
[2018-06-21] MEDS: Insulin NovoLIN Regular Correctional Sugar Inj SQ SCH ×4 (06:13→23:07)
[2018-06-21] MEDS: Sod Chloride 0.9% Inj 1,000 ML IV.CONT SCH ×2 (06:13→18:11)
[2018-06-21] MEDS: Morphine Sulfate 100 MG SR Tablet PO SCH ×2 (08:15→21:26)
[2018-06-21] MEDS: Chlorhexidine 0.12% Oral Kit 15 ML UDC OROPHARYNG SCH ×2 (08:16→20:35)
[2018-06-21] MEDS: Heparin - SQ 10,000 UNITS/ML Vial SQ SCH ×2 (08:16→20:16)
[2018-06-21] MEDS: Senna/Docusate Sodium 8.6/50 MG Tablet PO SCH ×2 (08:17→20:17)
--- NOTE | 2018-06-21 08:42 | P.CONNEU ---
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 Start on dexamethasone 06/20/2018. Neurology consult of her seizure. Patient states he never had a seizure before states his brother side. Denies any current headache focal weakness vision loss language disturbance. Seen by radiation oncology and there is suggested whole brain radiation treatment. He also has a history of chronic pain syndrome and his opiates were restarted yesterday. Review of Systems All other systems reviewed negative except as stated in HPI PMFSH - History History Provided By: Institutional Commodity Analyst / EMT - Medical History Medical History: Medical History (This Medical Record has been edited. Action required.) Edema (Chronic) Back pain (Chronic) Brain cancer History of chemotherapy Lung cancer COPD (chronic obstructive pulmonary disease) History of osteomyelitis Lung cancer Neck pain Port-A-Cath in place - Surgical History Surgical History: Surgical History (This Medical Record has been edited. Action required.) H/O hernia repair (Resolved) - Family History Family History: Family History (This Medical Record has been edited. Action required.) Grandparent Cancer Father H/O ETOH abuse Mother Alzheimers disease - Tobacco History Second Hand Smoke Exposure: No Smoking Status: Cognitive impairment Tobacco Type: Cigarettes - Alcohol History How Often Do You Have a Drink Containing Alcohol: Unable to Obtain - Substance Use History Substance History: Unable to Obtain - Travel History Recent Travel in the [place] Within the Last 8 Weeks: No Recent Travel Out of the Country Within the Last 8 Weeks: No - Immunization History Tetanus Immunization: Unable to Assess Medications and Allergies Active Medications: Active Medications Acetaminophen (Tylenol) 650 mg PO Q6H PRN PRN Reason: FEVER Al Hydroxide/Mg Hydroxide (Milk Of Magnesia Liq) 30 ml PO Q12H PRN PRN Reason: Mild Constipation Albuterol (Albuterol Neb (Prn)) 2.5 mg NEB Q2HR NEB PRN PRN Reason: SHORTNESS OF BREATH/WHEEZING Albuterol (Duoneb Neb (Flower)) 1 ampul NEB Q4HR NEB [facility]OWER Last Admin: 06/21/18 07:39 Dose: 1 ampul Bisacodyl (Dulcolax Supp) 10 mg RECTAL DAILY PRN PRN Reason: SEVERE CONSITIPATION Chlorhexidine Gluconate (Peridex 0.12% Oral Kit) 15 ml OROPHARYNG BID@0800, 1999 [facility] Last Admin: 06/21/18 08:16 Dose: 15 ml Chlorhexidine Gluconate (Chlorhexidine 2% Cloth) 3 pack TOPICAL DAILY@0400 [facility] Stop: 06/23/18 03:59 Last Admin: 06/21/18 04:54 Dose: 3 pack Chlorhexidine Gluconate (Chlorhexidine 2% Cloth) 3 pack TOPICAL DAILY@0400 PRN PRN Reason: Extra cloth needed Stop: 06/23/18 03:59 Dexamethasone (Decadron) 4 mg PO BID [facility] Last Admin: 06/21/18 08:16 Dose: 4 mg Dextrose (D50w Vial) 50 ml IV.PUSH UNSCH PRN PRN Reason: PER HYPOGLYCEMIA PROTOCOL Glucagon (Glucagon Inj) 1 mg OTHER PRN PRN PRN Reason: for Hypoglycemia Protocol Heparin Sodium (Porcine) (Heparin Inj) 5,000 units SQ Q12H [facility] Last Admin: 06/21/18 08:16 Dose: 5,000 units Fentanyl (Fentanyl 10 Mcg/Ml Premix Drip) 2,500 mcg in 250 mls @ 5 mls/hr IV.SIG TITRATE PRN; Protocol PRN Reason: Per Protocol Last Titration: 06/20/18 20:14 Dose: 0 mcg/hr, 0 mls/hr Magnesium Sulfate 4 gm/ Sodium (Chloride) 100 mls @ 50 mls/hr IV.SIG UNSCH PRN PRN Reason: For Magnesium 0.9 - 1.1 mg/dL Magnesium Sulfate 2 gm/ Sodium (Chloride) 100 mls @ 50 mls/hr IV.SIG UNSCH PRN PRN Reason: For Magnesium 1.2 - 1.6 mg/dL Sodium Chloride (Ns Inj) 1,000 mls @ 84 mls/hr IV.CONT .[id number] [facility] Last Admin: 06/21/18 06:13 Dose: Not Given Potassium Chloride (Kcl 20 Meq Premix Inj) 20 meq in 100 mls @ 50 mls/hr IV.SIG Q2H PRN PRN Reason: For Potassium 3.3 - 3.5 mEq/L Potassium Chloride (Kcl 40 Meq Premix Inj) 40 meq in 100 mls @ 25 mls/hr IV.SIG UNSCH PRN PRN Reason: For Potassium 3.3 - 3.5 mEq/L Potassium Chloride (Kcl 20 Meq Premix Inj) 20 meq in 100 mls @ 50 mls/hr IV.SIG Q2H PRN PRN Reason: For Potassium 2.8 - 3.2 mEq/L Potassium Phosphate 30 mmol/ (Sodium Chloride) 260 mls @ 42 mls/hr IV.SIG UNSCH PRN PRN Reason: SEE LABEL COMMENTS Propofol (Diprivan 1000 Mg/100 Ml Inj) 1,000 mg in 100 mls @ 1.837 mls/hr IV.CONT TITRATE PRN; Protocol PRN Reason: Per Protocol Last Titration: 06/20/18 20:14 Dose: Infused Sodium Phosphate 30 mmol/ (Sodium Chloride) 260 mls @ 42 mls/hr IV.SIG UNSCH PRN PRN Reason: For Phosphorus < 2.5 mg/dL Potassium Chloride (Kcl 40 Meq Premix Inj) 40 meq in 100 mls @ 25 mls/hr IV.SIG Q2H PRN PRN Reason: For Potassium 2.8 - 3.2 mEq/L Phenylephrine HCl 160 mg/ (Sodium Chloride) 500 mls @ 7.5 mls/hr IV.CONT TITRATE PRN; Protocol PRN Reason: See protol Last Titration: 06/18/18 21:00 Dose: 0 mcg/min, 0 mls/hr Levetiracetam 500 mg/ Sodium (Chloride) 105 mls @ 400 mls/hr IV.SIG Q12H [facility] Last Admin: 06/21/18 08:14 Dose: 400 mls/hr Aztreonam 2 gm/ Sodium (Chloride) 100 mls @ 200 mls/hr IV.SIG Q8H [facility] Last Admin: 06/21/18 06:13 Dose: 200 mls/hr Diltiazem HCl 125 mg/ Sodium (Chloride) 125 mls @ 2.5 mls/hr IV.CONT TITRATE PRN; Protocol PRN Reason: Per Protocol Amiodarone HCl 450 mg/ (Dextrose) 250 mls @ 33.33 mls/hr IV.CONT TITRATE PRN; Protocol PRN Reason: Per Protocol Last Admin: 06/21/18 00:57 Dose: 0.5 mg/min, 16.66 mls/hr Vancomycin HCl 750 mg/ Sodium (Chloride) 257.5 mls @ 257.5 mls/hr IV.SIG Q12H [facility] Last Admin: 06/21/18 05:04 Dose: 250 mls/hr Insulin Human Regular (Novolin R Correctional Sugar Inj) 0 units SQ Q6HR [facility]; Protocol Last Admin: 06/21/18 06:13 Dose: Not Given Lactulose (Lactulose Liq) 30 ml PO DAILY PRN PRN Reason: SEVERE CONSITIPATION Magnesium Oxide (Mag-Ox) 800 mg PO UNSCH PRN PRN Reason: For Magnesium 1.2 - 1.6 mg/dL Metronidazole (Flagyl) 500 mg PO Q6HR [facility] Last Admin: 06/21/18 05:04 Dose: 500 mg Midazolam HCl (Versed Inj) 10 mg IV.PUSH ONCE PRN PRN Reason: AGITATION Last Admin: 06/19/18 14:37 Dose: 10 mg Miscellaneous Information ([facility] Ordered Lab Info) 0 each OTHER ONCE ONE Stop: 06/21/18 17:46 Miscellaneous Medication () 1 each OROPHARYNG 0000,0400,1200,1600 [facility] Last Admin: 06/21/18 04:55 Dose: Not Given Morphine Sulfate (Morphine Inj) 4 mg IV.PUSH Q2H PRN PRN Reason: PAIN 1-10 Last Admin: 06/21/18 08:13 Dose: 4 mg Morphine Sulfate (Oramorph Sr) 100 mg PO Q12HR [facility] Last Admin: 06/21/18 08:15 Dose: 100 mg Oxycodone HCl (Roxicodone) 30 mg PO Q6H PRN PRN Reason: PAIN 6-10 IF TAKING PO Pantoprazole Sodium (Protonix Inj) 40 mg IV.PUSH Q24H [facility] Last Admin: 06/20/18 20:53 Dose: 40 mg Pharmacy Profile Note (Vancomycin Consult Pharmacy) 1 each OTHER UNSCH PRN PRN Reason: Pharmacy to dose Potassium Bicarb/Potassium Chloride (K-Lyte Cl Eff) 50 meq PO UNSCH PRN PRN Reason: For Potassium 3.3 - 3.5 mEq/L Potassium Phosphate (K-Phos Original) 2,000 mg PO Q4H PRN PRN Reason: Phosphorus Less Than 2.5 mg/dL Last Admin: 06/19/18 15:31 Dose: 2,000 mg Potassium Phosphate (K-Phos Original) 2,000 mg PO UNSCH PRN PRN Reason: SEE LABEL COMMENTS Senna/Docusate Sodium (Heather-Colace) 1 tab PO BID [facility] Last Admin: 06/21/18 08:17 Dose: Not Given Sennosides (Senokot) 17.2 mg PO Q12H PRN PRN Reason: Moderate Constipation Sodium Chloride (Ns Flush) 2 ml IV.FLUSH PRN PRN PRN Reason: FLUSH AFTER USING IV ACCESS Sodium Chloride (Ns Flush) 2 ml IV.FLUSH BID [facility] Last Admin: 06/20/18 20:54 Dose: 2 ml Sodium Chloride (Ns Flush) 2 ml IV.FLUSH DAILY [facility] Last Admin: 06/21/18 08:16 Dose: 2 ml Terbutaline Sulfate (Brethine Inj) 1 mg SQ UNSCH PRN PRN Reason: For Extravasation Allergies Allergy/AdvReac Type Severity Reaction Status Date / Time No Known Allergies Allergy Verified 06/20/18 13:15 Home Medications Medication Instructions Recorded Confirmed Type docusate sodium 100 mg PO BID 03/03/18 04/16/18 History morphine [MS Contin] 100 mg PO Q8H 03/03/18 04/16/18 History oxycodone 30 mg PO Q4-6H PRN MDD 2.5 tablets 03/03/18 04/16/18 History Unable to Obtain Home Meds 06/17/18 06/17/18 History Exam Vital signs: Vital Signs 06/20/18 09:00 06/20/18 09:01 06/20/18 10:00 Temperature Pulse Rate 120 H 119 H 115 H Respiratory Rate 19 31 H 22 Blood Pressure 155/76 H Pulse Oximetry 95 94 L 92 L 06/20/18 10:01 06/20/18 11:00 06/20/18 12:00 Temperature 98.5 F Pulse Rate 116 H 116 H 123 H Respiratory Rate 23 16 36 H Blood Pressure 160/82 H 166/84 H 164/91 H Pulse Oximetry 95 80 L 06/20/18 12:05 06/20/18 13:00 06/20/18 13:01 Temperature Pulse Rate 108 H 118 H 116 H Respiratory Rate 21 23 23 Blood Pressure 164/91 H 168/96 H Pulse Oximetry 90 L 91 L 91 L 06/20/18 14:00 06/20/18 15:00 06/20/18 15:11 Temperature 98.2 F Pulse Rate 116 H 120 H Respiratory Rate 20 25 H 28 H Blood Pressure 153/75 H Pulse Oximetry 91 L 06/20/18 16:00 06/20/18 17:00 06/20/18 18:00 Temperature Pulse Rate 114 H 116 H 113 H Respiratory Rate 27 H 18 19 Blood Pressure 159/85 H 174/96 H 167/85 H Pulse Oximetry 95 97 98 06/20/18 19:00 06/20/18 20:00 06/20/18 20:48 Temperature 98.4 F Pulse Rate 116 H 108 H 101 H Respiratory Rate 20 17 21 Blood Pressure 156/104 H 186/95 H Pulse Oximetry 96 98 06/20/18 20:53 06/20/18 21:00 06/20/18 22:00 Temperature Pulse Rate 111 H 119 H Respiratory Rate 17 23 Blood Pressure 136/95 H 153/105 H Pulse Oximetry 97 97 98 06/20/18 23:00 06/21/18 00:00 06/21/18 01:00 Temperature 98.3 F Pulse Rate 103 H 100 H 96 H Respiratory Rate 12 18 17 Blood Pressure 167/102 H 135/72 156/88 H Pulse Oximetry 96 96 96 06/21/18 02:00 06/21/18 03:00 06/21/18 04:00 Temperature 98.2 F Pulse Rate 99 H 103 H 103 H Respiratory Rate 16 15 16 Blood Pressure 175/83 H 160/91 H 154/93 H Pulse Oximetry 99 98 97 06/21/18 05:00 06/21/18 05:02 06/21/18 06:00 Temperature Pulse Rate 107 H 103 H 105 H Respiratory Rate 20 16 17 Blood Pressure 184/86 H 152/88 H Pulse Oximetry 98 98 97 06/21/18 06:01 06/21/18 07:00 06/21/18 07:01 Temperature Pulse Rate 105 H 106 H 104 H Respiratory Rate 16 14 16 Blood Pressure 176/95 H 156/82 H Pulse Oximetry 100 98 99 06/21/18 07:41 Temperature Pulse Rate 110 H Respiratory Rate 16 Blood Pressure Pulse Oximetry 97 Intake & Output 06/20/18 06/21/18 06/21/18 18:59 06:59 18:59 Intake Total 660 / 660 1450.0 / 1450.0 Output Total 2200 / 2200 Balance 660 / 660 -750.0 / -750.0 Weight 57 kg Intake: IV 660 / 660 970.0 / 970.0 Cordarone Inj 450 MG In D5W Inj 250 / 250 250 / 250 241 ML @ 1 MG/MIN 33.33 mls/hr IV.CONT TITRATE PRN Rx#: [id number] Diprivan 1000 mg/100 ml Inj 1, 0 / 0 000 mg In 100 ml @ 5 MCG/KG/MIN 1.837 mls/hr IV.CONT TITRATE PRN Rx#:[id number] Azactam Inj 2 GM In NS Inj 100 200 / 200 100 / 100 ML @ 200 mls/hr IV.SIG Q8H [facility] Rx#:[id number] Vancomycin Inj 750 MG In NS Inj 515.0 / 515.0 250 ML @ 257.5 mls/hr IV.SIG Q12H [facility] Rx#:[id number] Keppra Inj 500 MG In NS Inj 100 210 / 210 105 / 105 ML @ 400 mls/hr IV.SIG Q12H [facility] Rx#:[id number] Oral 480 / 480 Output: Urine 2200 / 2200 Other: Date of Last Bowel Movement 06/20/18 06/20/18 # Bowel Movements 2 Narrative: GENERAL: in NAD, thin body habitus SKIN: Warm and dry. HEAD: Atraumatic. Normocephalic. EYES: Pupils equal and round. No scleral icterus. ENT: No nasal bleeding or discharge. Mucous membranes pink and moist. NECK: Trachea midline. No JVD. CARDIOVASCULAR: Regular rate and rhythm. RESPIRATORY: No accessory muscle use. GASTROINTESTINAL: Abdomen soft, non-tender, nondistended. MUSCULOSKELETAL: Extremities without clubbing, cyanosis, or edema. No obvious deformities. NEUROLOGICAL: Awake alert oriented x2-3, knew the month and the year to now the exact date knows name of his oncologist, where he is why he is here pleasant appropriate, visual bush full no facial asymmetry tongue midline able raise all 4 extremity gravity gait not assessed secondary fall risk PSYCHIATRIC: Appropriate mood and affect; insight and judgment normal. - Constitutional no acute distress - Routine HEENT Exam Head: Present: normocephalic Eye: Present: EOMI Results - Labs CBC & Chem 7: 06/21/18 04:27 06/21/18 04:27 Labs: Laboratory Results - last 24 hr 06/20/18 06/20/18 06/20/18 12:25 17:28 23:46 WBC RBC Hgb Hct MCV MCH MCHC RDW Plt Count MPV PT INR Sodium Potassium Chloride Carbon Dioxide Anion Gap BUN Creatinine Estimated GFR POC Glucose 118 H 112 H 130 H Random Glucose Calcium Phosphorus Magnesium Total Bilirubin AST ALT Alkaline Phosphatase Total Protein Albumin 06/21/18 06/21/18 06/21/18 04:27 04:27 04:27 WBC 45.5 H RBC 2.92 L Hgb 8.7 L Hct 26.8 L MCV 91.9 MCH 29.7 MCHC 32.4 RDW 22.9 H Plt Count 259 MPV 7.3 PT 11.8 H INR 1.2 Sodium 141 Potassium 3.5 Chloride 105 Carbon Dioxide 27.4 Anion Gap 9 BUN 18 Creatinine 0.52 L Estimated GFR Greater than 89 POC Glucose Random Glucose 116 H Calcium 8.0 L Phosphorus 4.0 D Magnesium 1.6 Total Bilirubin 0.7 AST 26 ALT 17 Alkaline Phosphatase 99 Total Protein 6.0 L Albumin 2.1 L - Imaging Impressions Chest X-Ray 06/17/18 16:19 CONCLUSION: 1. Endotracheal tube in appropriate position with tip measuring 3.8 cm from the mecca. 2. Right basilar opacity with an appearance suggesting right lower lobe collapse. There is likely a trace right pleural fluid as well. These findings will be further characterized on the currently ordered chest CT. Head CT 06/17/18 16:19 CONCLUSION: 1. Negative CT Head non contrast other than known sinus surgery. . Cervical Spine CT 06/17/18 16:25 CONCLUSION: No acute cervical spine abnormality is identified. There is multilevel degenerative disc disease. Chest CT 06/17/18 16:25 CONCLUSION: 1. Near-complete collapse of the right lower lobe with a large mucous plug in the right lower lobe bronchus. There is quite dense material in the right lower lobe possible aspiration. The ET tube is in good position. The rest of the lungs are clear. There is a small pleural effusion Abdomen/Pelvis CT 06/17/18 19:46 CONCLUSION: 1. Moderate anasarca and mild ascites in the abdomen and pelvis with periportal edema and some pericholecystic fluid. 2. Dense consolidation and mucoid plugging in the right lower lobe with small right effusion. Patchy groundglass airspace disease in both lower lobes as well , probably infectious or post aspiration in nature. 3. Moderate anasarca. Kennedy catheter in bladder. Chest CT 06/17/18 19:46 CONCLUSION: 1. Dense consolidation involving the right lower lobe with obliteration of the right epicardial fat concerning for possible neoplasm in this region. There also is possible adenopathy in the right epicardial space. The patient could be further evaluated with PET FDG study. 2. Alveolar consolidation in the right upper lobe, left upper lobe, and left lower lobe likely related to underlying consolidation/bronchopneumonia. Face CT 06/17/18 19:46 CONCLUSION: 1. No acute facial bone fracture. Mucosal thickening in the paranasal sinuses with previous sinus surgery. Chest X-Ray 06/17/18 20:35 CONCLUSION: ET tube in good position. There is mild right pleural effusion. Increased interstitial markings likely related to edema. There is some further alveolar consolidation or atelectasis in the right lung. Chest X-Ray 06/17/18 23:18 CONCLUSION: Left jugular central line placement without complication Slight interval worsening in right lung pleural-parenchymal changes Head MRI 06/18/18 00:00 CONCLUSION: 1. Small subcortical metastatic lesions have developed, one of the left frontal lobe and one of the left parietal lobe. 2. 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 3. No bleed or acute/subacute infarct. 4. Chronic pansinusitis. Chest X-Ray 06/18/18 04:30 CONCLUSION: Slightly improved aeration. No pneumothorax. Chest X-Ray 06/19/18 05:00 CONCLUSION: Slightly improving aeration Review/Management - Diagnosis (1) Brain metastases Code(s): C79.31 - Secondary malignant neoplasm of brain Status: Acute Current Visit: Yes (2) Cardiomyopathy Code(s): I42.9 - Cardiomyopathy, unspecified Status: Chronic Current Visit: No (3) Lung neoplasm Code(s): D49.1 - Neoplasm of unspecified behavior of respiratory system Status : Acute Current Visit: Yes (4) Seizure Code(s): R56.9 - Unspecified convulsions Status: Acute Current Visit: Yes - Review/Management Plan: Seizure without warning. May be secondary to brain lesions versus opiate withdrawal A. fib. Not anticoagulated secondary to a brain mets per critical care Recommendation EEG Continue Keppra Patient on dexamethasone which also should help from an anticonvulsant standpoint via reducing edema around the mass Opiates resumed Plans for whole brain radiation No driving, operating any heavy machinery or dangerous machinery, swimming alone for at least 6 months of being seizure, spell free. (2) Cardiomyopathy Qualifiers: Cardiomyopathy type: unspecified Qualified Code(s): I42.9 - Cardiomyopathy, unspecified
--- NOTE | 2018-06-21 11:31 | P.PNIM ---
Subjective Interval history: Patient's primary complaint today is pain. He feels he might be going into withdrawal. His long-acting and short-acting narcotics have been resumed and he will be starting them this morning. RVR rate is still present but improved. Patient is on amiodarone drip. Physical Exam Vital signs: Vital Signs 06/20/18 12:00 06/20/18 12:05 06/20/18 13:00 Temperature 98.5 F Pulse Rate 123 H 108 H 118 H Respiratory Rate 36 H 21 23 Blood Pressure 164/91 H 164/91 H Pulse Oximetry 80 L 90 L 91 L 06/20/18 13:01 06/20/18 14:00 06/20/18 15:00 Temperature 98.2 F Pulse Rate 116 H 116 H 120 H Respiratory Rate 23 20 25 H Blood Pressure 168/96 H 153/75 H Pulse Oximetry 91 L 91 L 06/20/18 15:11 06/20/18 16:00 06/20/18 17:00 Temperature Pulse Rate 114 H 116 H Respiratory Rate 28 H 27 H 18 Blood Pressure 159/85 H 174/96 H Pulse Oximetry 95 97 06/20/18 18:00 06/20/18 19:00 06/20/18 20:00 Temperature 98.4 F Pulse Rate 113 H 116 H 108 H Respiratory Rate 19 20 17 Blood Pressure 167/85 H 156/104 H 186/95 H Pulse Oximetry 98 96 98 06/20/18 20:48 06/20/18 20:53 06/20/18 21:00 Temperature Pulse Rate 101 H 111 H Respiratory Rate 21 17 Blood Pressure 136/95 H Pulse Oximetry 97 97 06/20/18 22:00 06/20/18 23:00 06/21/18 00:00 Temperature 98.3 F Pulse Rate 119 H 103 H 100 H Respiratory Rate 23 12 18 Blood Pressure 153/105 H 167/102 H 135/72 Pulse Oximetry 98 96 96 06/21/18 01:00 06/21/18 02:00 06/21/18 03:00 Temperature Pulse Rate 96 H 99 H 103 H Respiratory Rate 17 16 15 Blood Pressure 156/88 H 175/83 H 160/91 H Pulse Oximetry 96 99 98 06/21/18 04:00 06/21/18 05:00 06/21/18 05:02 Temperature 98.2 F Pulse Rate 103 H 107 H 103 H Respiratory Rate 16 20 16 Blood Pressure 154/93 H 184/86 H 152/88 H Pulse Oximetry 97 98 98 06/21/18 06:00 06/21/18 06:01 06/21/18 07:00 Temperature Pulse Rate 105 H 105 H 106 H Respiratory Rate 17 16 14 Blood Pressure 176/95 H Pulse Oximetry 97 100 98 06/21/18 07:01 06/21/18 07:41 06/21/18 08:00 Temperature 98.5 F Pulse Rate 104 H 110 H 106 H Respiratory Rate 16 16 15 Blood Pressure 156/82 H 162/88 H Pulse Oximetry 99 97 94 L 06/21/18 09:00 06/21/18 10:00 06/21/18 11:00 Temperature Pulse Rate 114 H 118 H 110 H Respiratory Rate 19 16 15 Blood Pressure 151/92 H 144/70 H 149/69 H Pulse Oximetry 97 97 96 Intake & Output 06/20/18 06/21/18 06/21/18 18:59 06:59 18:59 Intake Total 660 / 660 1450.0 / 1450.0 Output Total 2200 / 2200 Balance 660 / 660 -750.0 / -750.0 Weight 57 kg Intake: IV 660 / 660 970.0 / 970.0 Cordarone Inj 450 MG In D5W Inj 250 / 250 250 / 250 241 ML @ 1 MG/MIN 33.33 mls/hr IV.CONT TITRATE PRN Rx#: [id number] Diprivan 1000 mg/100 ml Inj 1, 0 / 0 000 mg In 100 ml @ 5 MCG/KG/MIN 1.837 mls/hr IV.CONT TITRATE PRN Rx#:[id number] Azactam Inj 2 GM In NS Inj 100 200 / 200 100 / 100 ML @ 200 mls/hr IV.SIG Q8H SUSIE Rx#:[id number] Vancomycin Inj 750 MG In NS Inj 515.0 / 515.0 250 ML @ 257.5 mls/hr IV.SIG Q12H SUSIE Rx#:[id number] Keppra Inj 500 MG In NS Inj 100 210 / 210 105 / 105 ML @ 400 mls/hr IV.SIG Q12H SUSIE Rx#:[id number] Oral 480 / 480 Output: Urine 2200 / 2200 Other: Date of Last Bowel Movement 1106/20/18 06/20/18 # Bowel Movements 2 Narrative: GENERAL: NAD, A&Ox3 HEAD: Normocephalic. NECK: Supple, trachea midline. No lymphadenopathy. EYES: No scleral icterus. No injection or drainage. CARDIOVASCULAR: Irregularly irregular rhythm with tachycardia without murmurs, gallops, or rubs. RESPIRATORY: Breath sounds equal bilaterally. No accessory muscle use. GASTROINTESTINAL: Abdomen soft, non-tender, nondistended. MUSCULOSKELETAL: No cyanosis, or edema. SKIN: Warm and dry. NEURO: No focal neurological deficits. - Urinary Catheter Management Coude Cath placed during this visit: yes, but has since been removed by the nurse Reason for continuing: Not indwelling catheter Insertion date: 06/17/18 Insertion time: 16:30 Removal date: 06/18/18 Removal time: 12:00 Straight Cath placed during this visit: yes Reason for continuing: Not indwelling catheter Insertion date: 06/19/18 Insertion time: 12:00 Results - Labs CBC & Chem 7: 06/21/18 04:27 06/21/18 04:27 Laboratory Results - last 24 hr 06/20/18 06/20/18 06/20/18 12:25 17:28 23:46 WBC RBC Hgb Hct MCV MCH MCHC RDW Plt Count MPV PT INR Sodium Potassium Chloride Carbon Dioxide Anion Gap BUN Creatinine Estimated GFR POC Glucose 118 H 112 H 130 H Random Glucose Calcium Phosphorus Magnesium Total Bilirubin AST ALT Alkaline Phosphatase Total Protein Albumin 06/21/18 06/21/18 06/21/18 04:27 04:27 04:27 WBC 45.5 H RBC 2.92 L Hgb 8.7 L Hct 26.8 L MCV 91.9 MCH 29.7 MCHC 32.4 RDW 22.9 H Plt Count 259 MPV 7.3 PT 11.8 H INR 1.2 Sodium 141 Potassium 3.5 Chloride 105 Carbon Dioxide 27.4 Anion Gap 9 BUN 18 Creatinine 0.52 L Estimated GFR Greater than 89 POC Glucose Random Glucose 116 H Calcium 8.0 L Phosphorus 4.0 D Magnesium 1.6 Total Bilirubin 0.7 AST 26 ALT 17 Alkaline Phosphatase 99 Total Protein 6.0 L Albumin 2.1 L Microbiology 06/17/18 17:30 Blood - Line Aerobic Blood Culture - Preliminary No growth in 4 days 06/17/18 17:30 Blood - Line Anaerobic Blood Culture - Preliminary No growth in 4 days 06/17/18 17:30 Blood - Line Aerobic Blood Culture - Preliminary No growth in 4 days 06/17/18 17:30 Blood - Line Anaerobic Blood Culture - Preliminary No growth in 4 days 06/18/18 04:20 Bronchial Washings - Bronchial Acid Fast Bacilli Smear - Final No acid fast bacilli seen 06/18/18 04:20 Bronchial Washings - Bronchial Fungal Smear - Final No fungal elements seen 06/18/18 04:20 Bronchial - Bronchial Gram Stain - Final 06/18/18 04:20 Bronchial - Bronchial Bronchial Culture - Final Rare growth normal respiratory gallo 06/18/18 00:20 Sputum - Endotracheal Gram Stain - Final 06/18/18 00:20 Sputum - Endotracheal Sputum Culture - Final Rare growth normal respiratory gallo - Imaging Impressions Chest X-Ray 06/17/18 16:19 CONCLUSION: 1. Endotracheal tube in appropriate position with tip measuring 3.8 cm from the mecca. 2. Right basilar opacity with an appearance suggesting right lower lobe collapse. There is likely a trace right pleural fluid as well. These findings will be further characterized on the currently ordered chest CT. Head CT 06/17/18 16:19 CONCLUSION: 1. Negative CT Head non contrast other than known sinus surgery. . Cervical Spine CT 06/17/18 16:25 CONCLUSION: No acute cervical spine abnormality is identified. There is multilevel degenerative disc disease. Chest CT 06/17/18 16:25 CONCLUSION: 1. Near-complete collapse of the right lower lobe with a large mucous plug in the right lower lobe bronchus. There is quite dense material in the right lower lobe possible aspiration. The ET tube is in good position. The rest of the lungs are clear. There is a small pleural effusion Abdomen/Pelvis CT 06/17/18 19:46 CONCLUSION: 1. Moderate anasarca and mild ascites in the abdomen and pelvis with periportal edema and some pericholecystic fluid. 2. Dense consolidation and mucoid plugging in the right lower lobe with small right effusion. Patchy groundglass airspace disease in both lower lobes as well , probably infectious or post aspiration in nature. 3. Moderate anasarca. Kennedy catheter in bladder. Chest CT 06/17/18 19:46 CONCLUSION: 1. Dense consolidation involving the right lower lobe with obliteration of the right epicardial fat concerning for possible neoplasm in this region. There also is possible adenopathy in the right epicardial space. The patient could be further evaluated with PET FDG study. 2. Alveolar consolidation in the right upper lobe, left upper lobe, and left lower lobe likely related to underlying consolidation/bronchopneumonia. Face CT 06/17/18 19:46 CONCLUSION: 1. No acute facial bone fracture. Mucosal thickening in the paranasal sinuses with previous sinus surgery. Chest X-Ray 06/17/18 20:35 CONCLUSION: ET tube in good position. There is mild right pleural effusion. Increased interstitial markings likely related to edema. There is some further alveolar consolidation or atelectasis in the right lung. Chest X-Ray 06/17/18 23:18 CONCLUSION: Left jugular central line placement without complication Slight interval worsening in right lung pleural-parenchymal changes Head MRI 06/18/18 00:00 CONCLUSION: 1. Small subcortical metastatic lesions have developed, one of the left frontal lobe and one of the left parietal lobe. 2. 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 3. No bleed or acute/subacute infarct. 4. Chronic pansinusitis. Chest X-Ray 06/18/18 04:30 CONCLUSION: Slightly improved aeration. No pneumothorax. Chest X-Ray 06/19/18 05:00 CONCLUSION: Slightly improving aeration Assessment and Plan - Plan 62-year-old male admitted secondary to seizure with history of lung cancer with metastasis to the brain. He also had pneumonia, sepsis, and hypoxic respiratory failure and was intubated. Doing well status post extubation. Acute seizure History of brain metastases Acute metabolic encephalopathy Continue [facility] Neurology following Follow for seizure activity Atrial fibrillation with rapid ventricular response Continue amiodarone drip Septic Shock Lactic acidosis Elevated Troponin Type II NSTEMI secondary to demand ischemia Sepsis resolved Acute hypoxic hypercapnic respiratory failure secondary aspiration Continue oxygen supplementation as needed Follow respiratory status Acute protein calorie malnutrition- severe Moderate ascites Patient resumed on a cardiac diet Docusate sodium/senna 1 tablet bid for Ronquillo. stage IV Lung cancer with brain mets Elevated platelets Leukocytosis, Normocytic anemia Oncology following Neulasta patch on. Dr. Herrera his primary oncologist Follow CBC Aspiration pneumonia Continue vancomycin, aztreonam and metronidazole Generalized weakness Continue physical therapy Hypomagnesemia Replace electrolytes as clinically indicated DVT prophylaxis SCDs No anticoagulation due to brain masses
[2018-06-21] MEDS ORDERED: Temazepam 15 MG Capsule PO PRN (11:34)
--- NOTE | 2018-06-21 11:49 | P.PNONC ---
Subjective Interval history: Patient lying in bed, no acute distress. Alert and awake. He states he no longer feels like he is going into withdrawal as bad, since his home pain medications have been resumed. He is requesting a sleep aid, as he did not sleep last night. He is also inquiring about when radiation Objective Vital Signs/Intake & Output: Vital Signs 06/20/18 12:00 06/20/18 12:05 06/20/18 13:00 Temperature 98.5 F Pulse Rate 123 H 108 H 118 H Respiratory Rate 36 H 21 23 Blood Pressure 164/91 H 164/91 H Pulse Oximetry 80 L 90 L 91 L 06/20/18 13:01 06/20/18 14:00 06/20/18 15:00 Temperature 98.2 F Pulse Rate 116 H 116 H 120 H Respiratory Rate 23 20 25 H Blood Pressure 168/96 H 153/75 H Pulse Oximetry 91 L 91 L 06/20/18 15:11 06/20/18 16:00 06/20/18 17:00 Temperature Pulse Rate 114 H 116 H Respiratory Rate 28 H 27 H 18 Blood Pressure 159/85 H 174/96 H Pulse Oximetry 95 97 06/20/18 18:00 06/20/18 19:00 06/20/18 20:00 Temperature 98.4 F Pulse Rate 113 H 116 H 108 H Respiratory Rate 19 20 17 Blood Pressure 167/85 H 156/104 H 186/95 H Pulse Oximetry 98 96 98 06/20/18 20:48 06/20/18 20:53 06/20/18 21:00 Temperature Pulse Rate 101 H 111 H Respiratory Rate 21 17 Blood Pressure 136/95 H Pulse Oximetry 97 97 06/20/18 22:00 06/20/18 23:00 06/21/18 00:00 Temperature 98.3 F Pulse Rate 119 H 103 H 100 H Respiratory Rate 23 12 18 Blood Pressure 153/105 H 167/102 H 135/72 Pulse Oximetry 98 96 96 06/21/18 01:00 06/21/18 02:00 06/21/18 03:00 Temperature Pulse Rate 96 H 99 H 103 H Respiratory Rate 17 16 15 Blood Pressure 156/88 H 175/83 H 160/91 H Pulse Oximetry 96 99 98 06/21/18 04:00 06/21/18 05:00 06/21/18 05:02 Temperature 98.2 F Pulse Rate 103 H 107 H 103 H Respiratory Rate 16 20 16 Blood Pressure 154/93 H 184/86 H 152/88 H Pulse Oximetry 97 98 98 06/21/18 06:00 06/21/18 06:01 06/21/18 07:00 Temperature Pulse Rate 105 H 105 H 106 H Respiratory Rate 17 16 14 Blood Pressure 176/95 H Pulse Oximetry 97 100 98 06/21/18 07:01 06/21/18 07:41 06/21/18 08:00 Temperature 98.5 F Pulse Rate 104 H 110 H 106 H Respiratory Rate 16 16 15 Blood Pressure 156/82 H 162/88 H Pulse Oximetry 99 97 94 L 06/21/18 09:00 06/21/18 10:00 06/21/18 11:00 Temperature Pulse Rate 114 H 118 H 110 H Respiratory Rate 19 16 15 Blood Pressure 151/92 H 144/70 H 149/69 H Pulse Oximetry 97 97 96 Intake & Output 06/20/18 06/21/18 06/21/18 18:59 06:59 18:59 Intake Total 660 / 660 1450.0 / 1450.0 Output Total 2200 / 2200 Balance 660 / 660 -750.0 / -750.0 Weight 57 kg Intake: IV 660 / 660 970.0 / 970.0 Cordarone Inj 450 MG In D5W Inj 250 / 250 250 / 250 241 ML @ 1 MG/MIN 33.33 mls/hr IV.CONT TITRATE PRN Rx#: [id number] Diprivan 1000 mg/100 ml Inj 1, 0 / 0 000 mg In 100 ml @ 5 MCG/KG/MIN 1.837 mls/hr IV.CONT TITRATE PRN Rx#:[id number] Azactam Inj 2 GM In NS Inj 100 200 / 200 100 / 100 ML @ 200 mls/hr IV.SIG Q8H FLOWER Rx#:[id number] Vancomycin Inj 750 MG In NS Inj 515.0 / 515.0 250 ML @ 257.5 mls/hr IV.SIG Q12H FLOWER Rx#:[id number] Keppra Inj 500 MG In NS Inj 100 210 / 210 105 / 105 ML @ 400 mls/hr IV.SIG Q12H FLOWER Rx#:[id number] Oral 480 / 480 Output: Urine 2200 / 2200 Other: Date of Last Bowel Movement 06/20/18 06/20/18 06/20/18 # Bowel Movements 2 Result Diagrams: 06/21/18 04:27 06/21/18 04:27 Laboratory Results: Laboratory Results - last 24 hr 06/20/18 06/20/18 06/20/18 12:25 17:28 23:46 WBC RBC Hgb Hct MCV MCH MCHC RDW Plt Count MPV PT INR Sodium Potassium Chloride Carbon Dioxide Anion Gap BUN Creatinine Estimated GFR POC Glucose 118 H 112 H 130 H Random Glucose Calcium Phosphorus Magnesium Total Bilirubin AST ALT Alkaline Phosphatase Total Protein Albumin 06/21/18 06/21/18 06/21/18 04:27 04:27 04:27 WBC 45.5 H RBC 2.92 L Hgb 8.7 L Hct 26.8 L MCV 91.9 MCH 29.7 MCHC 32.4 RDW 22.9 H Plt Count 259 MPV 7.3 PT 11.8 H INR 1.2 Sodium 141 Potassium 3.5 Chloride 105 Carbon Dioxide 27.4 Anion Gap 9 BUN 18 Creatinine 0.52 L Estimated GFR Greater than 89 POC Glucose Random Glucose 116 H Calcium 8.0 L Phosphorus 4.0 D Magnesium 1.6 Total Bilirubin 0.7 AST 26 ALT 17 Alkaline Phosphatase 99 Total Protein 6.0 L Albumin 2.1 L Culture Results: Microbiology 06/17/18 17:30 Aerobic Blood Culture - Preliminary Blood - Line No growth in 4 days Anaerobic Blood Culture - Preliminary No growth in 4 days 06/17/18 17:30 Aerobic Blood Culture - Preliminary Blood - Line No growth in 4 days Anaerobic Blood Culture - Preliminary No growth in 4 days 06/18/18 04:20 Acid Fast Bacilli Smear - Final Bronchial Washings - Bronchial No acid fast bacilli seen 06/18/18 04:20 Fungal Smear - Final Bronchial Washings - Bronchial No fungal elements seen 06/18/18 04:20 Gram Stain - Final Bronchial - Bronchial Bronchial Culture - Final Rare growth normal respiratory gallo 06/18/18 00:20 Gram Stain - Final Sputum - Endotracheal Sputum Culture - Final Rare growth normal respiratory gallo Imaging Studies: Impressions Chest X-Ray 06/17/18 16:19 CONCLUSION: 1. Endotracheal tube in appropriate position with tip measuring 3.8 cm from the mecca. 2. Right basilar opacity with an appearance suggesting right lower lobe collapse. There is likely a trace right pleural fluid as well. These findings will be further characterized on the currently ordered chest CT. Head CT 06/17/18 16:19 CONCLUSION: 1. Negative CT Head non contrast other than known sinus surgery. . Cervical Spine CT 06/17/18 16:25 CONCLUSION: No acute cervical spine abnormality is identified. There is multilevel degenerative disc disease. Chest CT 06/17/18 16:25 CONCLUSION: 1. Near-complete collapse of the right lower lobe with a large mucous plug in the right lower lobe bronchus. There is quite dense material in the right lower lobe possible aspiration. The ET tube is in good position. The rest of the lungs are clear. There is a small pleural effusion Abdomen/Pelvis CT 06/17/18 19:46 CONCLUSION: 1. Moderate anasarca and mild ascites in the abdomen and pelvis with periportal edema and some pericholecystic fluid. 2. Dense consolidation and mucoid plugging in the right lower lobe with small right effusion. Patchy groundglass airspace disease in both lower lobes as well , probably infectious or post aspiration in nature. 3. Moderate anasarca. Kennedy catheter in bladder. Chest CT 06/17/18 19:46 CONCLUSION: 1. Dense consolidation involving the right lower lobe with obliteration of the right epicardial fat concerning for possible neoplasm in this region. There also is possible adenopathy in the right epicardial space. The patient could be further evaluated with PET FDG study. 2. Alveolar consolidation in the right upper lobe, left upper lobe, and left lower lobe likely related to underlying consolidation/bronchopneumonia. Face CT 06/17/18 19:46 CONCLUSION: 1. No acute facial bone fracture. Mucosal thickening in the paranasal sinuses with previous sinus surgery. Chest X-Ray 06/17/18 20:35 CONCLUSION: ET tube in good position. There is mild right pleural effusion. Increased interstitial markings likely related to edema. There is some further alveolar consolidation or atelectasis in the right lung. Chest X-Ray 06/17/18 23:18 CONCLUSION: Left jugular central line placement without complication Slight interval worsening in right lung pleural-parenchymal changes Head MRI 06/18/18 00:00 CONCLUSION: 1. Small subcortical metastatic lesions have developed, one of the left frontal lobe and one of the left parietal lobe. 2. 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 3. No bleed or acute/subacute infarct. 4. Chronic pansinusitis. Chest X-Ray 06/18/18 04:30 CONCLUSION: Slightly improved aeration. No pneumothorax. Chest X-Ray 06/19/18 05:00 CONCLUSION: Slightly improving aeration Medications: Active Medications Generic Name Dose Route Start Last Admin Trade Name Freq PRN Reason Stop Dose Admin Albuterol 1 ampul 06/17/18 20:00 06/21/18 07:39 Duoneb Neb (Flower) NEB 1 ampul Q4HR NEB FLOWER Administration Chlorhexidine Gluconate 15 ml 06/17/18 20:00 06/21/18 08:16 Peridex 0.12% Oral Kit OROPHARYNG 15 ml BID@0800,2000 FLOWER Administration Chlorhexidine Gluconate 3 pack 06/18/18 04:00 06/21/18 04:54 Chlorhexidine 2% Cloth TOPICAL 06/23/18 03:59 3 pack DAILY@0400 FLOWER Administration Dexamethasone 4 mg 06/20/18 09:00 06/21/18 08:16 Decadron PO 4 mg BID FLOWER Administration Heparin Sodium (Porcine) 5,000 units 06/17/18 20:00 06/21/18 08:16 Heparin Inj SQ 5,000 units Q12H FLOWER Administration Fentanyl 2,500 mcg in 250 mls @ 5 mls/hr 06/17/18 18:49 06/20/18 20:14 Fentanyl 10 Mcg/Ml Premix Drip IV.SIG 0 mcg/hr TITRATE PRN 0 mls/hr Per Protocol Titration Protocol 50 MCG/HR Sodium Chloride 1,000 mls @ 84 mls/hr 06/17/18 19:00 06/21/18 06:13 Ns Inj IV.CONT Not Given .[id number] [facility] Propofol 1,000 mg in 100 mls @ 1.837 mls/hr 06/17/18 18:49 06/20/18 20:14 Diprivan 1000 Mg/100 Ml Inj IV.CONT Infused TITRATE PRN Titration Per Protocol Protocol 5 MCG/KG/MIN Phenylephrine HCl 160 mg/ 500 mls @ 7.5 mls/hr 06/17/18 18:54 06/18/18 21:00 Sodium Chloride IV.CONT 0 mcg/min TITRATE PRN 0 mls/hr See protol Titration Protocol 40 MCG/MIN Levetiracetam 500 mg/ Sodium 105 mls @ 400 mls/hr 06/18/18 08:00 06/21/18 08: 14 Chloride IV.SIG 400 mls/hr Q12H FLOWER Administration Aztreonam 2 gm/ Sodium 100 mls @ 200 mls/hr 06/17/18 23:00 06/21/18 06:13 Chloride IV.SIG 200 mls/hr Q8H FLOWER Administration Amiodarone HCl 450 mg/ 250 mls @ 33.33 mls/hr 06/18/18 08:00 06/21/18 00:57 Dextrose IV.CONT 0.5 mg/min TITRATE PRN 16.66 mls/hr Per Protocol Administration Protocol 1 MG/MIN Vancomycin HCl 750 mg/ Sodium 257.5 mls @ 257.5 mls/hr 06/20/18 18:00 05:04 Chloride IV.SIG 250 mls/hr Q12H FLOWER Administration Insulin Human Regular 0 units 06/18/18 18:00 06/21/18 06:13 Novolin R Correctional Sugar Inj SQ Not Given Q6HR [facility] Protocol Metronidazole 500 mg 06/18/18 00:00 06/21/18 05:04 Flagyl PO 500 mg Q6HR FLOWER Administration Midazolam HCl 10 mg 06/18/18 16:00 06/19/18 14:37 Versed Inj IV.PUSH 10 mg ONCE PRN Administration AGITATION Miscellaneous Medication 1 each 06/18/18 00:00 06/21/18 04:55 OROPHARYNG Not Given 0000,0400,1200,1600 [facility] Morphine Sulfate 4 mg 06/20/18 13:06 06/21/18 08:13 Morphine Inj IV.PUSH 4 mg Q2H PRN Administration PAIN 1-10 Morphine Sulfate 100 mg 06/20/18 21:00 06/21/18 08:15 Oramorph Sr PO 100 mg Q12HR FLOWER Administration Oxycodone HCl 30 mg 06/20/18 18:02 06/21/18 10:12 Roxicodone PO 30 mg Q6H PRN Administration PAIN 6-10 IF TAKING PO Pantoprazole Sodium 40 mg 06/17/18 20:00 06/20/18 20:53 Protonix Inj IV.PUSH 40 mg Q24H FLOWER Administration Potassium Phosphate 2,000 mg 06/17/18 18:49 06/19/18 15:31 K-Phos Original PO 2,000 mg Q4H PRN Administration Phosphorus Less Than 2.5 mg/dL Senna/Docusate Sodium 1 tab 06/17/18 21:00 06/21/18 08:17 Heather-Colace PO Not Given BID FLOWER Sodium Chloride 2 ml 06/17/18 21:00 06/20/18 20:54 Ns Flush IV.FLUSH 2 ml BID FLOWER Administration Sodium Chloride 2 ml 06/18/18 09:00 06/21/18 08:16 Ns Flush IV.FLUSH 2 ml DAILY FLOWER Administration Objective Remarks: GENERAL: Chronically ill-appearing male patient, in no acute distress. SKIN: Warm and dry. Small skin tears noted to right forearm. HEAD: Normocephalic. EYES: No scleral icterus. No injection or drainage. NECK: Supple, trachea midline. CARDIOVASCULAR: Irregularly irregular rhythm, tachycardic, rate 112 bpm. RESPIRATORY: Posterior breath sounds clear, equal bilaterally. No accessory muscle use. GASTROINTESTINAL: Abdomen soft, non-tender, nondistended. EXTREMITIES: No cyanosis, or edema. MUSCULOSKELETAL: Adequate muscle tone. NEUROLOGICAL: No obvious focal deficit. Awake, alert, and oriented x3. PSYCHIATRIC: Appropriate mood and affect; insight and judgment normal. Assessment/Plan - Plan 62-year-old male with history of metastatic small cell lung cancer who was brought in by his neighbor after being found face down on the floor. He was last seen on 06/14 prior to the start of his chemotherapy. He was given a Neulasta on body injector after the etoposide and [employer]PERATOR-16. 1. Status post bronchoscopy, cytology pending. 2. Patient evaluated by Dr. wolff, recommends whole brain radiation. We will discuss possible start date with Dr. wolff. 3. Continue Decadron 4 mg twice daily. 4. Leukocytosis, secondary to Neulasta. 5. Patient requesting sleep aid, Restoril nightly as needed started. 6. Continues on amiodarone drip for A. fib RVR. Management per attending. 7. Once downgraded from ICU, the patient may be placed on the oncology floor. Message sent to bed placement. - Attending Statement The exam, history, and the medical decision-making described in the above note were completed with the assistance of the mid-level provider. I reviewed and agree with the findings presented. I attest that I had a [id number] encounter with the patient on the same day, and personally performed and documented my assessment and findings in the medical record. Patient is feeling better. He still has chest wall pain. His shortness of breath has improved. He denies any headache. No seizure activity reported. He will continue Decadron. He is awaiting whole brain irradiation. The leukocytosis is due to recent Neulasta. Continue to monitor CBC because his blood count likely will trend down due to recent chemotherapy.
[2018-06-21] MEDS ORDERED: Pharmacy Ordered Lab Info OTHER ONE (17:45)
[2018-06-21] MEDS: Pantoprazole Inj 40 MG Vial IV.PUSH SCH (20:17)
[2018-06-22] MEDS: Morphine Inj 4 MG/ML Vial IV.PUSH PRN ×3 (01:59→06:37)
[2018-06-22] MEDS: Chlorhexidine Gluconate 2% 1 Pack (2 Cloths) TOPICAL SCH (03:56)
[2018-06-22] MEDS: Oral Hygiene Kit OROPHARYNG SCH ×4 (03:56→23:53)
[2018-06-22] MEDS: Vancomycin Inj 750 MG in Sodium Chlor 0.9% Inj 250 ML IV.SIG SCH (05:08)
[2018-06-22] MEDS: metroNIDAZOLE 500 MG Tablet PO SCH ×4 (05:08→23:37)
[2018-06-22 05:49] LABS: INR 1.2 Ratio; Prothrombin Time 11.8 sec (9.8-11.6)
[2018-06-22 05:53] LABS: Hematocrit 24.1 % (39.0-51.0); Hemoglobin 7.7 gm/dL (13.0-17.0); Mean Corpuscular HGB Conc 31.8 % (32.0-36.0); Mean Corpuscular Hemoglobin 29.2 pg (27.0-34.0); Mean Corpuscular Volume 91.7 fL (80.0-100.0); Mean Platelet Volume 7.6 fL (7.0-11.0); Platelet Count 213 th/mm3 (150-450); Red Blood Count 2.63 mil/mm3 (4.50-5.90); Red Cell Distribution Width 22.6 % (11.6-17.2); White Blood Count 24.6 th/mm3 (4.0-11.0)
[2018-06-22 06:01] LABS: Alanine Aminotransferase 14 U/L (12-78); Albumin 1.9 g/dL (3.4-5.0); Anion Gap 7 meq/L (5-15); Aspartate Aminotransferase 12 U/L (15-37); Blood Urea Nitrogen 28 mg/dL (7-18); Calcium 7.9 mg/dL (8.5-10.1); Carbon Dioxide 27.4 meq/L (21.0-32.0); Chloride 106 meq/L (98-107); Glomerular Filtration Rate Greater Than 89 mL/min (>89); Glucose,Random 121 mg/dL (74-106); Magnesium 1.6 mg/dL (1.5-2.5); Phosphorus 3.8 mg/dL (2.5-4.9); Potassium 3.9 meq/L (3.5-5.1); Sodium 140 meq/L (136-145)
[2018-06-22 06:04] LABS: Alkaline Phosphatase 81 U/L (45-117); Total Protein 5.6 g/dL (6.4-8.2)
[2018-06-22] MEDS: Insulin NovoLIN Regular Correctional Sugar Inj SQ SCH ×4 (06:11→23:53)
[2018-06-22] MEDS: Aztreonam Inj 2 GM in Sodium Chloride 0.9% Inj 100 ML IV.SIG SCH ×2 (06:36→18:46)
[2018-06-22] MEDS: Sod Chloride 0.9% Inj 1,000 ML IV.CONT SCH ×2 (06:49→22:55)
[2018-06-22 08:08] LABS: Lymphocytes 1 % (9-44); Ovalocytes 1+; Platelet Estimate Normal (Normal); Platelet Morphology Normal (Normal); Toxic Vacuolation Present
[2018-06-22 08:09] LABS: Dohle Bodies Present
--- NOTE | 2018-06-22 08:13 | P.PNNEU ---
Subjective Subjective Comments: No cp, no dyspnea, no rain, no focal weakness, no vision loss, no seizure Active Medications: Active Medications Acetaminophen (Tylenol) 650 mg PO Q6H PRN PRN Reason: FEVER Al Hydroxide/Mg Hydroxide (Milk Of Alfei Liq) 30 ml PO Q12H PRN PRN Reason: Mild Constipation Albuterol (Albuterol Neb (Prn)) 2.5 mg NEB Q2HR NEB PRN PRN Reason: SHORTNESS OF BREATH/WHEEZING Bisacodyl (Dulcolax Supp) 10 mg RECTAL DAILY PRN PRN Reason: SEVERE CONSITIPATION Chlorhexidine Gluconate (Peridex 0.12% Oral Kit) 15 ml OROPHARYNG BID@0800, 1999 [facility] Last Admin: 06/21/18 20:35 Dose: Not Given Chlorhexidine Gluconate (Chlorhexidine 2% Cloth) 3 pack TOPICAL DAILY@0400 [facility] Stop: 06/23/18 03:59 Last Admin: 06/22/18 03:56 Dose: 3 pack Chlorhexidine Gluconate (Chlorhexidine 2% Cloth) 3 pack TOPICAL DAILY@0400 PRN PRN Reason: Extra cloth needed Stop: 06/23/18 03:59 Dexamethasone (Decadron) 4 mg PO BID [facility] Last Admin: 06/21/18 21:26 Dose: 4 mg Dextrose (D50w Vial) 50 ml IV.PUSH UNSCH PRN PRN Reason: PER HYPOGLYCEMIA PROTOCOL Glucagon (Glucagon Inj) 1 mg OTHER PRN PRN PRN Reason: for Hypoglycemia Protocol Heparin Sodium (Porcine) (Heparin Inj) 5,000 units SQ Q12H [facility] Last Admin: 06/21/18 20:16 Dose: 5,000 units Fentanyl (Fentanyl 10 Mcg/Ml Premix Drip) 2,500 mcg in 250 mls @ 5 mls/hr IV.SIG TITRATE PRN; Protocol PRN Reason: Per Protocol Last Titration: 06/20/18 20:14 Dose: 0 mcg/hr, 0 mls/hr Magnesium Sulfate 4 gm/ Sodium (Chloride) 100 mls @ 50 mls/hr IV.SIG UNSCH PRN PRN Reason: For Magnesium 0.9 - 1.1 mg/dL Magnesium Sulfate 2 gm/ Sodium (Chloride) 100 mls @ 50 mls/hr IV.SIG UNSCH PRN PRN Reason: For Magnesium 1.2 - 1.6 mg/dL Sodium Chloride (Ns Inj) 1,000 mls @ 84 mls/hr IV.CONT .[id number] SUSIE Last Admin: 06/22/18 06:49 Dose: Not Given Potassium Chloride (Kcl 20 Meq Premix Inj) 20 meq in 100 mls @ 50 mls/hr IV.SIG Q2H PRN PRN Reason: For Potassium 3.3 - 3.5 mEq/L Potassium Chloride (Kcl 40 Meq Premix Inj) 40 meq in 100 mls @ 25 mls/hr IV.SIG UNSCH PRN PRN Reason: For Potassium 3.3 - 3.5 mEq/L Potassium Chloride (Kcl 20 Meq Premix Inj) 20 meq in 100 mls @ 50 mls/hr IV.SIG Q2H PRN PRN Reason: For Potassium 2.8 - 3.2 mEq/L Potassium Phosphate 30 mmol/ (Sodium Chloride) 260 mls @ 42 mls/hr IV.SIG UNSCH PRN PRN Reason: SEE LABEL COMMENTS Propofol (Diprivan 1000 Mg/100 Ml Inj) 1,000 mg in 100 mls @ 1.837 mls/hr IV.CONT TITRATE PRN; Protocol PRN Reason: Per Protocol Last Titration: 06/20/18 20:14 Dose: Infused Sodium Phosphate 30 mmol/ (Sodium Chloride) 260 mls @ 42 mls/hr IV.SIG UNSCH PRN PRN Reason: For Phosphorus < 2.5 mg/dL Potassium Chloride (Kcl 40 Meq Premix Inj) 40 meq in 100 mls @ 25 mls/hr IV.SIG Q2H PRN PRN Reason: For Potassium 2.8 - 3.2 mEq/L Phenylephrine HCl 160 mg/ (Sodium Chloride) 500 mls @ 7.5 mls/hr IV.CONT TITRATE PRN; Protocol PRN Reason: See protol Last Titration: 06/18/18 21:00 Dose: 0 mcg/min, 0 mls/hr Levetiracetam 500 mg/ Sodium (Chloride) 105 mls @ 400 mls/hr IV.SIG Q12H SUSIE Last Infusion: 06/21/18 21:50 Dose: Infused Aztreonam 2 gm/ Sodium (Chloride) 100 mls @ 200 mls/hr IV.SIG Q8H SUSIE Last Infusion: 06/22/18 07:34 Dose: Infused Diltiazem HCl 125 mg/ Sodium (Chloride) 125 mls @ 2.5 mls/hr IV.CONT TITRATE PRN; Protocol PRN Reason: Per Protocol Amiodarone HCl 450 mg/ (Dextrose) 250 mls @ 33.33 mls/hr IV.CONT TITRATE PRN; Protocol PRN Reason: Per Protocol Last Admin: 06/22/18 05:34 Dose: 0.5 mg/min, 16.66 mls/hr Vancomycin HCl 750 mg/ Sodium (Chloride) 257.5 mls @ 257.5 mls/hr IV.SIG Q12H [facility] Last Infusion: 06/22/18 06:49 Dose: Infused Insulin Human Regular (Novolin R Correctional Sugar Inj) 0 units SQ Q6HR SUSIE; Protocol Last Admin: 06/22/18 06:11 Dose: Not Given Lactulose (Lactulose Liq) 30 ml PO DAILY PRN PRN Reason: SEVERE CONSITIPATION Lactulose (Lactulose Liq) 30 ml PO DAILY PRN PRN Reason: Severe Consitipation Magnesium Oxide (Mag-Ox) 800 mg PO UNSCH PRN PRN Reason: For Magnesium 1.2 - 1.6 mg/dL Metronidazole (Flagyl) 500 mg PO Q6HR [facility] Last Admin: 06/22/18 05:08 Dose: 500 mg Midazolam HCl (Versed Inj) 10 mg IV.PUSH ONCE PRN PRN Reason: AGITATION Last Admin: 06/19/18 14:37 Dose: 10 mg Miscellaneous Information ([facility] Ordered Lab Info) 0 each OTHER ONCE ONE Stop: 06/23/18 17:46 Miscellaneous Medication () 1 each OROPHARYNG 0000,0400,1200,1600 [facility] Last Admin: 06/22/18 03:56 Dose: Not Given Morphine Sulfate (Morphine Inj) 4 mg IV.PUSH Q2H PRN PRN Reason: PAIN 1-10 Last Admin: 06/22/18 06:37 Dose: 4 mg Morphine Sulfate (Oramorph Sr) 100 mg PO Q12HR [facility] Last Admin: 06/21/18 21:26 Dose: 100 mg Oxycodone HCl (Roxicodone) 30 mg PO Q6H PRN PRN Reason: PAIN 6-10 IF TAKING PO Last Admin: 06/21/18 23:07 Dose: 30 mg Pantoprazole Sodium (Protonix Inj) 40 mg IV.PUSH Q24H [facility] Last Admin: 06/21/18 20:17 Dose: 40 mg Pharmacy Profile Note (Vancomycin Consult Pharmacy) 1 each OTHER UNSCH PRN PRN Reason: Pharmacy to dose Potassium Bicarb/Potassium Chloride (K-Lyte Cl Eff) 50 meq PO UNSCH PRN PRN Reason: For Potassium 3.3 - 3.5 mEq/L Potassium Phosphate (K-Phos Original) 2,000 mg PO Q4H PRN PRN Reason: Phosphorus Less Than 2.5 mg/dL Last Admin: 06/19/18 15:31 Dose: 2,000 mg Potassium Phosphate (K-Phos Original) 2,000 mg PO UNSCH PRN PRN Reason: SEE LABEL COMMENTS Senna/Docusate Sodium (Heather-Colace) 1 tab PO BID [facility] Last Admin: 06/21/18 20:17 Dose: Not Given Sennosides (Senokot) 17.2 mg PO Q12H PRN PRN Reason: Moderate Constipation Sodium Chloride (Ns Flush) 2 ml IV.FLUSH PRN PRN PRN Reason: FLUSH AFTER USING IV ACCESS Sodium Chloride (Ns Flush) 2 ml IV.FLUSH BID [facility] Last Admin: 06/21/18 20:17 Dose: 2 ml Sodium Chloride (Ns Flush) 2 ml IV.FLUSH DAILY [facility] Last Admin: 06/21/18 08:16 Dose: 2 ml Temazepam (Restoril) 15 mg PO HS PRN PRN Reason: INSOMNIA Terbutaline Sulfate (Brethine Inj) 1 mg SQ UNSCH PRN PRN Reason: For Extravasation Allergies/Adverse Reactions: Allergies Allergy/AdvReac Type Severity Reaction Status Date / Time No Known Allergies Allergy Verified 06/20/18 13:15 Review of Systems All other systems reviewed negative except as stated in HPI Physical Exam Vital signs: Vital Signs 06/21/18 09:00 06/21/18 10:00 06/21/18 11:00 Temperature Pulse Rate 114 H 118 H 110 H Respiratory Rate 19 16 15 Blood Pressure 151/92 H 144/70 H 149/69 H Pulse Oximetry 97 97 96 06/21/18 11:43 06/21/18 12:00 06/21/18 12:39 Temperature 98.4 F Pulse Rate 106 H Respiratory Rate 22 17 20 Blood Pressure 140/76 Pulse Oximetry 98 06/21/18 13:00 06/21/18 14:00 06/21/18 15:00 Temperature Pulse Rate 112 H 103 H 115 H Respiratory Rate 20 21 29 H Blood Pressure 125/87 128/75 129/73 Pulse Oximetry 97 98 99 06/21/18 16:00 06/21/18 16:15 06/21/18 17:26 Temperature 98.3 F 98.3 F Pulse Rate 98 H 96 H 112 H Respiratory Rate 17 18 18 Blood Pressure 133/82 114/73 Pulse Oximetry 98 96 06/21/18 20:00 06/21/18 20:50 06/21/18 22:00 Temperature 98.5 F Pulse Rate 115 H Respiratory Rate 18 18 18 Blood Pressure 123/77 Pulse Oximetry 99 06/21/18 23:41 06/22/18 00:00 06/22/18 02:05 Temperature 98.0 F Pulse Rate 94 H Respiratory Rate 18 18 18 Blood Pressure 113/80 Pulse Oximetry 97 06/22/18 04:00 06/22/18 04:05 06/22/18 06:49 Temperature 97.2 F L Pulse Rate 95 H Respiratory Rate 18 18 18 Blood Pressure 124/79 Pulse Oximetry 99 Intake & Output 06/21/18 06/22/18 06/22/18 18:59 06:59 18:59 Intake Total 455 / 455 1320.0 / 1320.0 100 / 100 Output Total 1700 / 1700 Balance 455 / 455 -380.0 / -380.0 100 / 100 Weight 57 kg Intake: IV 455 / 455 720.0 / 720.0 100 / 100 Cordarone Inj 450 MG In D5W Inj 250 / 250 241 ML @ 1 MG/MIN 33.33 mls/hr IV.CONT TITRATE PRN Rx#: [id number] Azactam Inj 2 GM In NS Inj 100 100 / 100 100 / 100 100 / 100 ML @ 200 mls/hr IV.SIG Q8H SUSIE Rx#:[id number] Vancomycin Inj 750 MG In NS Inj 515.0 / 515.0 250 ML @ 257.5 mls/hr IV.SIG Q12H SUSIE Rx#:[id number] Keppra Inj 500 MG In NS Inj 100 105 / 105 105 / 105 ML @ 400 mls/hr IV.SIG Q12H SUSIE Rx#:[id number] Oral 600 / 600 Output: Urine 1700 / 1700 Other: Date of Last Bowel Movement 06/20/18 06/20/18 Narrative: GENERAL: NAD, looks comfortable, thin body habitus HEAD: Normocephalic. NECK: Supple, trachea midline. No lymphadenopathy. EYES: No scleral icterus. CARDIOVASCULAR: Irregularly irregular rhythm RESPIRATORY: No accessory muscle use. GASTROINTESTINAL: Abdomen soft, non-tender, nondistended. MUSCULOSKELETAL: No cyanosis, or edema. SKIN: Warm and dry. NEURO: Awake alert oriented x3 no aphasia, visual bush full no facial asymmetry moving all 4 extremity gravity no drift. - Constitutional no acute distress - Routine HEENT Exam Head: Present: normocephalic Eye: Present: EOMI - Urinary Catheter Management Coude Cath placed during this visit: yes, but has since been removed by the nurse Reason for continuing: Not indwelling catheter Insertion date: 06/17/18 Insertion time: 16:30 Removal date: 06/18/18 Removal time: 12:00 Straight Cath placed during this visit: yes Reason for continuing: Not indwelling catheter Insertion date: 06/19/18 Insertion time: 12:00 Objective Laboratory Results - last 24 hr 06/21/18 06/21/18 06/21/18 12:19 17:28 17:30 WBC RBC Hgb Hct MCV MCH MCHC RDW Plt Count MPV Prelim Diff (Auto) WBC Differential Seg Neuts % (Manual) Band Neuts % (Manual) Lymphocytes % (Manual) Abs Neuts (Manual) Differential Comment Toxic Vacuolation Dohle Bodies Platelet Estimate Platelet Morphology Ovalocytes PT INR Sodium Potassium Chloride Carbon Dioxide Anion Gap BUN Creatinine Estimated GFR POC Glucose 150 H 158 H Random Glucose Calcium Phosphorus Magnesium Total Bilirubin AST ALT Alkaline Phosphatase Total Protein Albumin Vancomycin Trough 11.1 H 06/21/18 06/22/18 06/22/18 23:05 05:20 05:20 WBC 24.6 H RBC 2.63 L Hgb 7.7 L Hct 24.1 L MCV 91.7 MCH 29.2 MCHC 31.8 L RDW 22.6 H Plt Count 213 MPV 7.6 Prelim Diff (Auto) Manual diff required WBC Differential Manual diff final Seg Neuts % (Manual) 90 H Band Neuts % (Manual) 9 H Lymphocytes % (Manual) 1 L Abs Neuts (Manual) 24.4 H Differential Comment . Toxic Vacuolation Present H Dohle Bodies Present H Platelet Estimate Normal Platelet Morphology Normal Ovalocytes 1+ H PT INR Sodium 140 Potassium 3.9 Chloride 106 Carbon Dioxide 27.4 Anion Gap 7 BUN 28 H Creatinine 0.60 Estimated GFR Greater than 89 POC Glucose 150 H Random Glucose 121 H Calcium 7.9 L Phosphorus 3.8 Magnesium 1.6 Total Bilirubin 0.3 AST 12 L ALT 14 Alkaline Phosphatase 81 Total Protein 5.6 L Albumin 1.9 L Vancomycin Trough 06/22/18 06/22/18 05:20 05:37 WBC RBC Hgb Hct MCV MCH MCHC RDW Plt Count MPV Prelim Diff (Auto) WBC Differential Seg Neuts % (Manual) Band Neuts % (Manual) Lymphocytes % (Manual) Abs Neuts (Manual) Differential Comment Toxic Vacuolation Dohle Bodies Platelet Estimate Platelet Morphology Ovalocytes PT 11.8 H INR 1.2 Sodium Potassium Chloride Carbon Dioxide Anion Gap BUN Creatinine Estimated GFR POC Glucose 131 H Random Glucose Calcium Phosphorus Magnesium Total Bilirubin AST ALT Alkaline Phosphatase Total Protein Albumin Vancomycin Trough Microbiology 06/17/18 17:30 Aerobic Blood Culture - Preliminary Blood - Line No growth in 4 days Anaerobic Blood Culture - Preliminary No growth in 4 days 06/17/18 17:30 Aerobic Blood Culture - Preliminary Blood - Line No growth in 4 days Anaerobic Blood Culture - Preliminary No growth in 4 days Review/Management - Diagnosis (1) Brain metastases Code(s): C79.31 - Secondary malignant neoplasm of brain Status: Acute Current Visit: Yes (2) Cardiomyopathy Code(s): I42.9 - Cardiomyopathy, unspecified Status: Chronic Current Visit: No (3) Lung neoplasm Code(s): D49.1 - Neoplasm of unspecified behavior of respiratory system Status : Acute Current Visit: Yes (4) Seizure Code(s): R56.9 - Unspecified convulsions Status: Acute Current Visit: Yes - Review/Management Plan: Seizure without warning. May be secondary to brain lesions versus opiate withdrawal A. fib. Not anticoagulated secondary to a brain mets per critical care EEG 06/19/2018 showing encephalopathy no seizure activity Recommendation Neuro stable Continue Keppra Patient on dexamethasone which also should help from an anticonvulsant standpoint via reducing edema around the mass Opiates resumed; states he has been on Roxicodone and morphine for close to 30 years high doses frequent intervals Plans for whole brain radiation per radiation oncology We will follow peripherally No driving, operating any heavy machinery or dangerous machinery, swimming alone for at least 6 months of being seizure, spell free. (2) Cardiomyopathy Qualifiers: Cardiomyopathy type: unspecified Qualified Code(s): I42.9 - Cardiomyopathy, unspecified
[2018-06-22] MEDS: Chlorhexidine 0.12% Oral Kit 15 ML UDC OROPHARYNG SCH ×2 (09:56→20:17)
[2018-06-22] MEDS: Heparin - SQ 10,000 UNITS/ML Vial SQ SCH ×2 (10:02→20:19)
[2018-06-22] MEDS: Senna/Docusate Sodium 8.6/50 MG Tablet PO SCH ×2 (10:02→20:20)
[2018-06-22] MEDS: Morphine Sulfate 100 MG SR Tablet PO SCH ×2 (10:02→16:00)
--- NOTE | 2018-06-22 10:25 | P.PNONC ---
Subjective Interval history: Afebrile. Patient resting comfortably in bed awake and alert. He reports that he has been unable to sleep and feels this is related to the length of time between his pain medications. He also inquires if his cancer is in his left lung as he gets occasional pain on that side now. He is eager to start full brain radiation. Objective Vital Signs/Intake & Output: Vital Signs 06/21/18 11:00 06/21/18 11:43 06/21/18 12:00 Temperature 98.4 F Pulse Rate 110 H 106 H Respiratory Rate 15 22 17 Blood Pressure 149/69 H 140/76 Pulse Oximetry 96 98 06/21/18 12:39 06/21/18 13:00 06/21/18 14:00 Temperature Pulse Rate 112 H 103 H Respiratory Rate 20 20 21 Blood Pressure 125/87 128/75 Pulse Oximetry 97 98 06/21/18 15:00 06/21/18 16:00 06/21/18 16:15 Temperature 98.3 F Pulse Rate 115 H 98 H 96 H Respiratory Rate 29 H 17 18 Blood Pressure 129/73 133/82 Pulse Oximetry 99 98 06/21/18 17:26 06/21/18 20:00 06/21/18 20:50 Temperature 98.3 F 98.5 F Pulse Rate 112 H 115 H Respiratory Rate 18 18 18 Blood Pressure 114/73 123/77 Pulse Oximetry 96 99 06/21/18 22:00 06/21/18 23:41 06/22/18 00:00 Temperature 98.0 F Pulse Rate 94 H Respiratory Rate 18 18 18 Blood Pressure 113/80 Pulse Oximetry 97 06/22/18 02:05 06/22/18 04:00 06/22/18 04:05 Temperature 97.2 F L Pulse Rate 95 H Respiratory Rate 18 18 18 Blood Pressure 124/79 Pulse Oximetry 99 06/22/18 06:49 Temperature Pulse Rate Respiratory Rate 18 Blood Pressure Pulse Oximetry Intake & Output 06/21/18 06/22/18 06/22/18 18:59 06:59 18:59 Intake Total 455 / 455 1320.0 / 1320.0 100 / 100 Output Total 1700 / 1700 Balance 455 / 455 -380.0 / -380.0 100 / 100 Weight 57 kg Intake: IV 455 / 455 720.0 / 720.0 100 / 100 Cordarone Inj 450 MG In D5W Inj 250 / 250 241 ML @ 1 MG/MIN 33.33 mls/hr IV.CONT TITRATE PRN Rx#: [id number] Azactam Inj 2 GM In NS Inj 100 100 / 100 100 / 100 100 / 100 ML @ 200 mls/hr IV.SIG Q8H SUSIE Rx#:[id number] Vancomycin Inj 750 MG In NS Inj 515.0 / 515.0 250 ML @ 257.5 mls/hr IV.SIG Q12H SUSIE Rx#:[id number] Keppra Inj 500 MG In NS Inj 100 105 / 105 105 / 105 ML @ 400 mls/hr IV.SIG Q12H SUSIE Rx#:[id number] Oral 600 / 600 Output: Urine 1700 / 1700 Other: Date of Last Bowel Movement 06/20/18 06/20/18 Result Diagrams: 06/22/18 05:20 06/22/18 05:20 Laboratory Results: Laboratory Results - last 24 hr 06/21/18 06/21/18 06/21/18 12:19 17:28 17:30 WBC RBC Hgb Hct MCV MCH MCHC RDW Plt Count MPV Prelim Diff (Auto) WBC Differential Seg Neuts % (Manual) Band Neuts % (Manual) Lymphocytes % (Manual) Abs Neuts (Manual) Differential Comment Toxic Vacuolation Dohle Bodies Platelet Estimate Platelet Morphology Ovalocytes PT INR Sodium Potassium Chloride Carbon Dioxide Anion Gap BUN Creatinine Estimated GFR POC Glucose 150 H 158 H Random Glucose Calcium Phosphorus Magnesium Total Bilirubin AST ALT Alkaline Phosphatase Total Protein Albumin Vancomycin Trough 11.1 H 06/21/18 06/22/18 06/22/18 23:05 05:20 05:20 WBC 24.6 H RBC 2.63 L Hgb 7.7 L Hct 24.1 L MCV 91.7 MCH 29.2 MCHC 31.8 L RDW 22.6 H Plt Count 213 MPV 7.6 Prelim Diff (Auto) Manual diff required WBC Differential Manual diff final Seg Neuts % (Manual) 90 H Band Neuts % (Manual) 9 H Lymphocytes % (Manual) 1 L Abs Neuts (Manual) 24.4 H Differential Comment . Toxic Vacuolation Present H Dohle Bodies Present H Platelet Estimate Normal Platelet Morphology Normal Ovalocytes 1+ H PT INR Sodium 140 Potassium 3.9 Chloride 106 Carbon Dioxide 27.4 Anion Gap 7 BUN 28 H Creatinine 0.60 Estimated GFR Greater than 89 POC Glucose 150 H Random Glucose 121 H Calcium 7.9 L Phosphorus 3.8 Magnesium 1.6 Total Bilirubin 0.3 AST 12 L ALT 14 Alkaline Phosphatase 81 Total Protein 5.6 L Albumin 1.9 L Vancomycin Trough 06/22/18 06/22/18 05:20 05:37 WBC RBC Hgb Hct MCV MCH MCHC RDW Plt Count MPV Prelim Diff (Auto) WBC Differential Seg Neuts % (Manual) Band Neuts % (Manual) Lymphocytes % (Manual) Abs Neuts (Manual) Differential Comment Toxic Vacuolation Dohle Bodies Platelet Estimate Platelet Morphology Ovalocytes PT 11.8 H INR 1.2 Sodium Potassium Chloride Carbon Dioxide Anion Gap BUN Creatinine Estimated GFR POC Glucose 131 H Random Glucose Calcium Phosphorus Magnesium Total Bilirubin AST ALT Alkaline Phosphatase Total Protein Albumin Vancomycin Trough Culture Results: Microbiology 06/17/18 17:30 Aerobic Blood Culture - Preliminary Blood - Line No growth in 4 days Anaerobic Blood Culture - Preliminary No growth in 4 days 06/17/18 17:30 Aerobic Blood Culture - Preliminary Blood - Line No growth in 4 days Anaerobic Blood Culture - Preliminary No growth in 4 days 06/18/18 04:20 Acid Fast Bacilli Smear - Final Bronchial Washings - Bronchial No acid fast bacilli seen 06/18/18 04:20 Fungal Smear - Final Bronchial Washings - Bronchial No fungal elements seen 06/18/18 04:20 Gram Stain - Final Bronchial - Bronchial Bronchial Culture - Final Rare growth normal respiratory gallo 06/18/18 00:20 Gram Stain - Final Sputum - Endotracheal Sputum Culture - Final Rare growth normal respiratory gallo Medications: Active Medications Generic Name Dose Route Start Last Admin Trade Name Geneq PRN Reason Stop Dose Admin Chlorhexidine Gluconate 15 ml 06/17/18 20:00 06/22/18 09:56 Peridex 0.12% Oral Kit OROPHARYNG Not Given BID@0800,2000 SUSIE Chlorhexidine Gluconate 3 pack 06/18/18 04:00 06/22/18 03:56 Chlorhexidine 2% Cloth TOPICAL 06/23/18 03:59 3 pack DAILY@0400 SUSIE Administration Dexamethasone 4 mg 06/20/18 09:00 06/22/18 10:03 Decadron PO 4 mg BID SUSIE Administration Heparin Sodium (Porcine) 5,000 units 06/17/18 20:00 06/22/18 10:02 Heparin Inj SQ 5,000 units Q12H SUSIE Administration Fentanyl 2,500 mcg in 250 mls @ 5 mls/hr 06/17/18 18:49 06/20/18 20:14 Fentanyl 10 Mcg/Ml Premix Drip IV.SIG 0 mcg/hr TITRATE PRN 0 mls/hr Per Protocol Titration Protocol 50 MCG/HR Sodium Chloride 1,000 mls @ 84 mls/hr 06/17/18 19:00 06/22/18 06:49 Ns Inj IV.CONT Not Given .[id number] SUSIE Propofol 1,000 mg in 100 mls @ 1.837 mls/hr 06/17/18 18:49 06/20/18 20:14 Diprivan 1000 Mg/100 Ml Inj IV.CONT Infused TITRATE PRN Titration Per Protocol Protocol 5 MCG/KG/MIN Phenylephrine HCl 160 mg/ 500 mls @ 7.5 mls/hr 06/17/18 18:54 06/18/18 21:00 Sodium Chloride IV.CONT 0 mcg/min TITRATE PRN 0 mls/hr See protol Titration Protocol 40 MCG/MIN Levetiracetam 500 mg/ Sodium 105 mls @ 400 mls/hr 06/18/18 08:00 06/22/18 10: 03 Chloride IV.SIG 400 mls/hr Q12H SUSIE Administration Aztreonam 2 gm/ Sodium 100 mls @ 200 mls/hr 06/17/18 23:00 06/22/18 07:34 Chloride IV.SIG Infused Q8H SUSIE Infusion Amiodarone HCl 450 mg/ 250 mls @ 33.33 mls/hr 06/18/18 08:00 06/22/18 05:34 Dextrose IV.CONT 0.5 mg/min TITRATE PRN 16.66 mls/hr Per Protocol Administration Protocol 1 MG/MIN Vancomycin HCl 750 mg/ Sodium 257.5 mls @ 257.5 mls/hr 06/20/18 18:00 06:49 Chloride IV.SIG Infused Q12H SUSIE Infusion Insulin Human Regular 0 units 06/18/18 18:00 06/22/18 06:11 Novolin R Correctional Sugar Inj SQ Not Given Q6HR SUSIE Protocol Metronidazole 500 mg 06/18/18 00:00 06/22/18 05:08 Flagyl PO 500 mg Q6HR SUSIE Administration Midazolam HCl 10 mg 06/18/18 16:00 06/19/18 14:37 Versed Inj IV.PUSH 10 mg ONCE PRN Administration AGITATION Miscellaneous Medication 1 each 06/18/18 00:00 06/22/18 03:56 OROPHARYNG Not Given 0000,0400,1200,1600 [facility] Morphine Sulfate 4 mg 06/20/18 13:06 06/22/18 06:37 Morphine Inj IV.PUSH 4 mg Q2H PRN Administration PAIN 1-10 Morphine Sulfate 100 mg 06/20/18 21:00 06/22/18 10:02 Oramorph Sr PO 100 mg Q12HR SUSIE Administration Oxycodone HCl 30 mg 06/20/18 18:02 06/21/18 23:07 Roxicodone PO 30 mg Q6H PRN Administration PAIN 6-10 IF TAKING PO Pantoprazole Sodium 40 mg 06/17/18 20:00 06/21/18 20:17 Protonix Inj IV.PUSH 40 mg Q24H SUSIE Administration Potassium Phosphate 2,000 mg 06/17/18 18:49 06/19/18 15:31 K-Phos Original PO 2,000 mg Q4H PRN Administration Phosphorus Less Than 2.5 mg/dL Senna/Docusate Sodium 1 tab 06/17/18 21:00 06/22/18 10:02 Heather-Colace PO 1 tab BID SUSIE Administration Sodium Chloride 2 ml 06/17/18 21:00 06/22/18 10:03 Ns Flush IV.FLUSH Not Given BID SUSIE Sodium Chloride 2 ml 06/18/18 09:00 06/22/18 10:04 Ns Flush IV.FLUSH 2 ml DAILY SUSIE Administration Objective Remarks: GENERAL: Chronically ill-appearing male patient, in no acute distress. SKIN: Warm and dry. Small skin tears noted to right forearm, dry. HEAD: Normocephalic. EYES: No scleral icterus. No injection or drainage. NECK: Supple, trachea midline. CARDIOVASCULAR: Irregularly irregular rhythm, tachycardic, rate controlled. RESPIRATORY: Posterior breath sounds clear, equal bilaterally. No accessory muscle use. GASTROINTESTINAL: Abdomen soft, non-tender, nondistended. EXTREMITIES: No cyanosis, or edema. MUSCULOSKELETAL: Adequate muscle tone. NEUROLOGICAL: No obvious focal deficit. Awake, alert, and oriented x3. PSYCHIATRIC: Appropriate mood and affect; insight and judgment normal. Assessment/Plan - Plan 62-year-old male with history of metastatic small cell lung cancer who was brought in by his neighbor after being found face down on the floor. He was last seen on 06/14 prior to the start of his chemotherapy. 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 1. Status post bronchoscopy, cytology inconclusive for malignant cells. 2. Patient evaluated by Dr. wolff, recommends whole brain radiation. Discussed with Dr. wolff, pending radiation simulation today. 3. Continue Decadron 4 mg twice daily. 4. Leukocytosis, improving, secondary to Neulasta. 5. We will restart home medication regimen. 6. Continues on amiodarone drip for A. fib RVR. Management per attending. 7. Subjectively complains of left lung pain, CT chest on 06/17/2018 showed alveolar consolidation in the left upper lobe and left lower lobe likely related to underlying consolidation/bronchopneumonia. Further findings in regards to the right side. Continues on antibiotics, vancomycin and aztreonam. - Attending Statement The exam, history, and the medical decision-making described in the above note were completed with the assistance of the mid-level provider. I reviewed and agree with the findings presented. I attest that I had a [id number] encounter with the patient on the same day, and personally performed and documented my assessment and findings in the medical record. Patient is feeling better. He denies significant headache. He has no shortness of breath. He still has chronic pain and has been started back on his home pain medication. He is going to have radiation simulation today. He will continue Decadron.
--- NOTE | 2018-06-22 14:18 | P.PNIM ---
Subjective Interval history: Patient is requesting more pain medications. 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 He does not have any other complaints this morning. No chest pain or palpitations, no seizures. Physical Exam Vital signs: Vital Signs 06/21/18 15:00 06/21/18 16:00 06/21/18 16:15 Temperature 98.3 F Pulse Rate 115 H 98 H 96 H Respiratory Rate 29 H 17 18 Blood Pressure 129/73 133/82 Pulse Oximetry 99 98 06/21/18 17:26 06/21/18 20:00 06/21/18 20:50 Temperature 98.3 F 98.5 F Pulse Rate 112 H 115 H Respiratory Rate 18 18 18 Blood Pressure 114/73 123/77 Pulse Oximetry 96 99 06/21/18 22:00 06/21/18 23:41 06/22/18 00:00 Temperature 98.0 F Pulse Rate 94 H Respiratory Rate 18 18 18 Blood Pressure 113/80 Pulse Oximetry 97 06/22/18 02:05 06/22/18 04:00 06/22/18 04:05 Temperature 97.2 F L Pulse Rate 95 H Respiratory Rate 18 18 18 Blood Pressure 124/79 Pulse Oximetry 99 06/22/18 06:49 Temperature Pulse Rate Respiratory Rate 18 Blood Pressure Pulse Oximetry Intake & Output 06/21/18 06/22/18 06/22/18 18:59 06:59 18:59 Intake Total 455 / 455 1320.0 / 1320.0 Output Total 1700 / 1700 Balance 455 / 455 -380.0 / -380.0 Weight 57 kg Intake: IV 455 / 455 720.0 / 720.0 Cordarone Inj 450 MG In D5W Inj 250 / 250 241 ML @ 1 MG/MIN 33.33 mls/hr IV.CONT TITRATE PRN Rx#: [id number] Azactam Inj 2 GM In NS Inj 100 100 / 100 100 / 100 100 / 100 ML @ 200 mls/hr IV.SIG Q8H [facility] Rx#:[id number] Vancomycin Inj 750 MG In NS Inj 515.0 / 515.0 250 ML @ 257.5 mls/hr IV.SIG Q12H [facility] Rx#:[id number] Keppra Inj 500 MG In NS Inj 100 105 / 105 105 / 105 105 / 105 ML @ 400 mls/hr IV.SIG Q12H [facility] Rx#:[id number] Oral 600 / 600 Output: Urine 1700 / 1700 Other: Date of Last Bowel Movement 06/20/18 06/20/18 Narrative: General patient in no acute distress HEENT extraocular movements are intact, clear oropharyngeal mucosa, no JVD Cardiovascular S1-S2 audible Respiratory clear to auscultation bilaterally Abdomen soft, nontender, nondistended, normal bowel sounds Extremities no edema 2+ distal pulses in bilateral upper and lower extremities Neuro no neurological deficits. Patient moves all 4 extremities and sensation is intact bilaterally - Urinary Catheter Management Coude Cath placed during this visit: yes, but has since been removed by the nurse Reason for continuing: Not indwelling catheter Insertion date: 06/17/18 Insertion time: 16:30 Removal date: 06/18/18 Removal time: 12:00 Straight Cath placed during this visit: yes Reason for continuing: Not indwelling catheter Insertion date: 06/19/18 Insertion time: 12:00 Results - Labs CBC & Chem 7: 06/22/18 05:20 06/22/18 05:20 Laboratory Results - last 24 hr 06/21/18 06/21/18 06/21/18 17:28 17:30 23:05 WBC RBC Hgb Hct MCV MCH MCHC RDW Plt Count MPV Prelim Diff (Auto) WBC Differential Seg Neuts % (Manual) Band Neuts % (Manual) Lymphocytes % (Manual) Abs Neuts (Manual) Differential Comment Toxic Vacuolation Dohle Bodies Platelet Estimate Platelet Morphology Ovalocytes PT INR Sodium Potassium Chloride Carbon Dioxide Anion Gap BUN Creatinine Estimated GFR POC Glucose 158 H 150 H Random Glucose Calcium Phosphorus Magnesium Total Bilirubin AST ALT Alkaline Phosphatase Total Protein Albumin Vancomycin Trough 11.1 H 06/22/18 06/22/18 06/22/18 05:20 05:20 05:20 WBC 24.6 H RBC 2.63 L Hgb 7.7 L Hct 24.1 L MCV 91.7 MCH 29.2 MCHC 31.8 L RDW 22.6 H Plt Count 213 MPV 7.6 Prelim Diff (Auto) Manual diff required WBC Differential Manual diff final Seg Neuts % (Manual) 90 H Band Neuts % (Manual) 9 H Lymphocytes % (Manual) 1 L Abs Neuts (Manual) 24.4 H Differential Comment . Toxic Vacuolation Present H Dohle Bodies Present H Platelet Estimate Normal Platelet Morphology Normal Ovalocytes 1+ H PT 11.8 H INR 1.2 Sodium 140 Potassium 3.9 Chloride 106 Carbon Dioxide 27.4 Anion Gap 7 BUN 28 H Creatinine 0.60 Estimated GFR Greater than 89 POC Glucose Random Glucose 121 H Calcium 7.9 L Phosphorus 3.8 Magnesium 1.6 Total Bilirubin 0.3 AST 12 L ALT 14 Alkaline Phosphatase 81 Total Protein 5.6 L Albumin 1.9 L Vancomycin Trough 06/22/18 06/22/18 05:37 12:11 WBC RBC Hgb Hct MCV MCH MCHC RDW Plt Count MPV Prelim Diff (Auto) WBC Differential Seg Neuts % (Manual) Band Neuts % (Manual) Lymphocytes % (Manual) Abs Neuts (Manual) Differential Comment Toxic Vacuolation Dohle Bodies Platelet Estimate Platelet Morphology Ovalocytes PT INR Sodium Potassium Chloride Carbon Dioxide Anion Gap BUN Creatinine Estimated GFR POC Glucose 131 H 121 H Random Glucose Calcium Phosphorus Magnesium Total Bilirubin AST ALT Alkaline Phosphatase Total Protein Albumin Vancomycin Trough Microbiology 06/17/18 17:30 Blood - Line Aerobic Blood Culture - Final No growth in 5 days 06/17/18 17:30 Blood - Line Anaerobic Blood Culture - Final No growth in 5 days 06/17/18 17:30 Blood - Line Aerobic Blood Culture - Final No growth in 5 days 06/17/18 17:30 Blood - Line Anaerobic Blood Culture - Final No growth in 5 days Assessment and Plan - Plan This patient is a 62-year-old male with a diagnosis of small cell lung cancer with metastasis. The patient initially was admitted with acute encephalopathy and had a seizure at home and was found to have brain metastases. He was subsequently intubated and admitted to the intensive care unit. 1. Small cell lung cancer with metastasis to the brain. 2. Acute encephalopathy secondary to #1 3. Seizure secondary to #1 Currently no seizure-like activity Continue Keppra Neurology following Status post bronchoscopy cytology was inconclusive for any malignant cells. Radiation oncology recommends whole brain radiation, pending radiation simulation today. Continue Decadron Follow-up with recommendations from heme oncology. 4. Atrial fibrillation with rapid ventricular rate 5. Systolic CHF ejection fraction 25%. 6. HTN Heart rate in the low 100s. He is currently on amiodarone drip. We will consult cardiology for the recommendations regarding this patient's atrial fibrillation and systolic CHF. Patient appears euvolemic. Patient started on a beta zarina, lisinopril. Systolic CHF possibly ischemic. May benefit from Aspirin and statin as well. Follow up with Cardio and Oncology, pt with brain mets. 6. Acute hypoxic hypercapnic respiratory failure secondary to aspiration pneumonia Currently on room air. We will give supplemental oxygen if needed. Patient has been on IV antibiotics with vancomycin, aztreonam, and Flagyl for 5 days. WBC count downtrending, likely due to Neulasta. Breathing treatments as needed. 7. Chronic pain As per the patient he has had multiple surgeries of his back left lower extremity as well as his shoulder. Continue current pain medication regimen. Adjust medications as needed. SCDs for DVT prophylaxis, no anticoagulation due to brain metastasis.
[2018-06-22] MEDS ORDERED: Magnesium Sulfate Inj 2 GM in Sodium Chlor 0.9% Inj 96 ML IV.SIG ONE (16:00)
--- NOTE | 2018-06-22 17:22 | P.CONCA ---
History of Present Illness Service: Cardiology Consult date: 06/22/18 Requesting Physician: Deborah Barba Reason for Consult: Atrial Fibrillation with RVR Primary Care Provider: UNKNOWN Chief Complaint: Altered mental status/seizure History of Present Illness: This is a 62-year-old male with a past medical history of brain cancer stage III and lung cancer, receiving radiation and chemotherapy and COPD. He was brought to the Emergency Department on 06/17/18 with altered mental status. He currently is in atrial fibrillation in the low 100's. He denies any chest pressure, palpitations, dizziness, edema or shortness of breath. He does complain of left sided chest pain without radiation. Review of Systems All other systems reviewed negative except as stated in HPI [facility] - History History Provided By: Patient - Medical History Medical History: Medical History (Last Reviewed 06/22/18 @ 09:05 by Delmy Rowe) Edema (Chronic) Back pain (Chronic) Brain cancer History of chemotherapy Lung cancer COPD (chronic obstructive pulmonary disease) History of osteomyelitis Lung cancer Neck pain Port-A-Cath in place - Surgical History Surgical History: Surgical History (Last Reviewed 06/22/18 @ 09:05 by Delmy Rowe) H/O hernia repair (Resolved) - Family History Family History: Family History (This Medical Record has been edited. Action required.) Grandparent Cancer Father H/O ETOH abuse Mother Alzheimers disease - Tobacco History Second Hand Smoke Exposure: No Tobacco Use In Past 30 Days: No Smoking Status: Former smoker Tobacco Type: Cigarettes - Alcohol History How Often Do You Have a Drink Containing Alcohol: Never - Substance Use History Substance History: No History of Abuse - Travel History Recent Travel in the [place] Within the Last 8 Weeks: No Recent Travel Out of the Country Within the Last 8 Weeks: No - Immunization History Tetanus Immunization: >5 Years Hx Influenza Vaccine This Season: No Medications and Allergies Allergies Allergy/AdvReac Type Severity Reaction Status Date / Time No Known Allergies Allergy Verified 06/20/18 13:15 Home Medications Medication Instructions Recorded Confirmed Type docusate sodium 100 mg PO BID 03/03/18 04/16/18 History morphine [MS Contin] 100 mg PO Q8H 03/03/18 04/16/18 History oxycodone 30 mg PO Q4-6H PRN MDD 2.5 tablets 07/19/18 09/01/18 History Unable to Obtain Home Meds 06/17/18 06/17/18 History Active Medications: Active Medications Acetaminophen (Tylenol) 650 mg PO Q6H PRN PRN Reason: FEVER Al Hydroxide/Mg Hydroxide (Milk Of Alfie Khan) 30 ml PO Q12H PRN PRN Reason: Mild Constipation Albuterol (Albuterol Neb (Prn)) 2.5 mg NEB Q2HR NEB PRN PRN Reason: SHORTNESS OF BREATH/WHEEZING Bisacodyl (Dulcolax Supp) 10 mg RECTAL DAILY PRN PRN Reason: SEVERE CONSITIPATION Carvedilol (Coreg) 3.125 mg PO BID [facility] Chlorhexidine Gluconate (Peridex 0.12% Oral Kit) 15 ml OROPHARYNG BID@0800, 2000 [facility] Last Admin: 06/22/18 09:56 Dose: Not Given Chlorhexidine Gluconate (Chlorhexidine 2% Cloth) 3 pack TOPICAL DAILY@0400 [facility] Stop: 06/23/18 03:59 Last Admin: 06/22/18 03:56 Dose: 3 pack Chlorhexidine Gluconate (Chlorhexidine 2% Cloth) 3 pack TOPICAL DAILY@0400 PRN PRN Reason: Extra cloth needed Stop: 06/23/18 03:59 Dexamethasone (Decadron) 4 mg PO BID [facility] Last Admin: 06/22/18 10:03 Dose: 4 mg Dextrose (D50w Vial) 50 ml IV.PUSH UNSCH PRN PRN Reason: PER HYPOGLYCEMIA PROTOCOL Glucagon (Glucagon Inj) 1 mg OTHER PRN PRN PRN Reason: for Hypoglycemia Protocol Heparin Sodium (Porcine) (Heparin Inj) 5,000 units SQ Q12H [facility] Last Admin: 06/22/18 10:02 Dose: 5,000 units Sodium Chloride (Ns Inj) 1,000 mls @ 84 mls/hr IV.CONT .[id number] [facility] Last Admin: 06/22/18 06:49 Dose: Not Given Levetiracetam 500 mg/ Sodium (Chloride) 105 mls @ 400 mls/hr IV.SIG Q12H [facility] Last Infusion: 06/22/18 12:39 Dose: Infused Aztreonam 2 gm/ Sodium (Chloride) 100 mls @ 200 mls/hr IV.SIG Q8H [facility] Last Infusion: 06/22/18 07:34 Dose: Infused Amiodarone HCl 450 mg/ (Dextrose) 250 mls @ 33.33 mls/hr IV.CONT TITRATE PRN; Protocol PRN Reason: Per Protocol Last Admin: 06/22/18 05:34 Dose: 0.5 mg/min, 16.66 mls/hr Magnesium Sulfate 2 gm/ Sodium (Chloride) 100 mls @ 50 mls/hr IV.SIG ONCE ONE Stop: 06/22/18 17:59 Vancomycin HCl 1,000 mg/ (Sodium Chloride) 250 mls @ 250 mls/hr IV.SIG Q12H [facility] Insulin Human Regular (Novolin R Correctional Sugar Inj) 0 units SQ Q6HR [facility]; Protocol Last Admin: 06/22/18 12:19 Dose: Not Given Lactulose (Lactulose Liq) 30 ml PO DAILY PRN PRN Reason: SEVERE CONSITIPATION Lactulose (Lactulose Liq) 30 ml PO DAILY PRN PRN Reason: Severe Consitipation Lisinopril (Prinivil) 2.5 mg PO DAILY [facility] Metronidazole (Flagyl) 500 mg PO Q6HR [facility] Last Admin: 06/22/18 12:39 Dose: 500 mg Miscellaneous Information ([facility] Ordered Lab Info) 0 each OTHER ONCE ONE Stop: 06/24/18 05:46 Miscellaneous Medication () 1 each OROPHARYNG 0000,0400,1200,1600 [facility] Last Admin: 06/22/18 11:12 Dose: Not Given Morphine Sulfate (Oramorph Sr) 100 mg PO Q8H [facility] Last Admin: 06/22/18 16:00 Dose: 100 mg Oxycodone HCl (Roxicodone) 30 mg PO Q4H PRN PRN Reason: PAIN 6-10 IF TAKING PO Last Admin: 06/22/18 15:58 Dose: 30 mg Pantoprazole Sodium (Protonix Inj) 40 mg IV.PUSH Q24H [facility] Last Admin: 06/21/18 20:17 Dose: 40 mg Pharmacy Profile Note (Vancomycin Consult Pharmacy) 1 each OTHER UNSCH PRN PRN Reason: Pharmacy to dose Senna/Docusate Sodium (Heather-Colace) 1 tab PO BID [facility] Last Admin: 06/22/18 10:02 Dose: 1 tab Sennosides (Senokot) 17.2 mg PO Q12H PRN PRN Reason: Moderate Constipation Sodium Chloride (Ns Flush) 2 ml IV.FLUSH PRN PRN PRN Reason: FLUSH AFTER USING IV ACCESS Sodium Chloride (Ns Flush) 2 ml IV.FLUSH BID [facility] Last Admin: 06/22/18 10:03 Dose: Not Given Sodium Chloride (Ns Flush) 2 ml IV.FLUSH DAILY [facility] Last Admin: 06/22/18 10:04 Dose: 2 ml Temazepam (Restoril) 15 mg PO HS PRN PRN Reason: INSOMNIA Exam Vital signs: Vital Signs 06/21/18 17:26 06/21/18 20:00 06/21/18 20:50 Temperature 98.3 F 98.5 F Pulse Rate 112 H 115 H Respiratory Rate 18 18 18 Blood Pressure 114/73 123/77 Pulse Oximetry 96 99 06/21/18 22:00 06/21/18 23:41 06/22/18 00:00 Temperature 98.0 F Pulse Rate 94 H Respiratory Rate 18 18 18 Blood Pressure 113/80 Pulse Oximetry 97 06/22/18 02:05 06/22/18 04:00 06/22/18 04:05 Temperature 97.2 F L Pulse Rate 95 H Respiratory Rate 18 18 18 Blood Pressure 124/79 Pulse Oximetry 99 06/22/18 06:49 06/22/18 08:00 06/22/18 12:00 Temperature 98.0 F 97.6 F Pulse Rate 91 H 105 H Respiratory Rate 18 18 18 Blood Pressure 102/76 126/94 H Pulse Oximetry 96 95 06/22/18 16:00 Temperature 98.1 F Pulse Rate 96 H Respiratory Rate 16 Blood Pressure 130/87 Pulse Oximetry 98 Intake & Output 06/21/18 06/22/18 06/22/18 18:59 06:59 18:59 Intake Total 455 / 455 1320.0 / 1320.0 Output Total 1700 / 1700 Balance 455 / 455 -380.0 / -380.0 Weight 57 kg Intake: IV 455 / 455 720.0 / 720.0 Cordarone Inj 450 MG In D5W Inj 250 / 250 241 ML @ 1 MG/MIN 33.33 mls/hr IV.CONT TITRATE PRN Rx#: [id number] Azactam Inj 2 GM In NS Inj 100 100 / 100 100 / 100 100 / 100 ML @ 200 mls/hr IV.SIG Q8H [facility] Rx#:[id number] Vancomycin Inj 750 MG In NS Inj 515.0 / 515.0 250 ML @ 257.5 mls/hr IV.SIG Q12H [facility] Rx#:[id number] Keppra Inj 500 MG In NS Inj 100 105 / 105 105 / 105 105 / 105 ML @ 400 mls/hr IV.SIG Q12H [facility] Rx#:[id number] Oral 600 / 600 Output: Urine 1700 / 1700 Other: Date of Last Bowel Movement 06/20/18 06/20/18 - Constitutional no acute distress - Routine HEENT Exam Head: Present: normocephalic Eye: Present: PERRL ENT: Present: mucous membranes moist - Routine Neck Exam Present: full ROM - Routine Respiratory Exam Present: CTA bilaterally - Routine Cardiovascular Exam Present: S1, S2, tachycardia, irregular rhythm Comments: atrial fibrillation - Routine Abdominal Exam Present: normoactive bowel sounds - Routine Extremities Exam Present: full ROM, pulses intact, normal capillary refill. Absent: cyanosis, clubbing, edema - Routine Skin Exam Present: intact - Routine Neurological Exam Present: oriented X3 Results 06/22/18 05:20 06/22/18 05:20 Cardiac Enzymes 06/21/18 06/22/18 Range/Units 04:27 05:20 AST 26 12 L (15-37) U/L Coagulation 06/21/18 06/22/18 Range/Units 04:27 05:20 PT 11.8 H 11.8 H (9.8-11.6) sec CBC 06/21/18 06/22/18 Range/Units 04:27 05:20 WBC 45.5 H 24.6 H (4.0-11.0) th/mm3 RBC 2.92 L 2.63 L (4.50-5.90) mil/mm3 Hgb 8.7 L 7.7 L (13.0-17.0) gm/dL Hct 26.8 L 24.1 L (39.0-51.0) % Plt Count 259 213 (150-450) th/mm3 Comprehensive Metabolic Panel 06/21/18 06/22/18 Range/Units 04:27 05:20 Sodium 141 140 (136-145) meq/L Potassium 3.5 3.9 (3.5-5.1) meq/L Chloride 105 106 (98-107) meq/L Carbon Dioxide 27.4 27.4 (21.0-32.0) meq/L BUN 18 28 H (7-18) mg/dL Creatinine 0.52 L 0.60 (0.60-1.30) mg/dL Calcium 8.0 L 7.9 L (8.5-10.1) mg/dL AST 26 12 L (15-37) U/L ALT 17 14 (12-78) U/L Alkaline Phosphatase 99 81 (45-117) U/L Total Protein 6.0 L 5.6 L (6.4-8.2) g/dL Albumin 2.1 L 1.9 L (3.4-5.0) g/dL Intake and Output 06/22/18 06/22/18 06/22/18 06:59 14:59 22:59 Intake Total 497.5 / 497.5 Output Total 500 / 500 Balance -2.5 / -2.5 Intake: IV 257.5 / 257.5 Azactam Inj 2 GM In NS Inj 100 100 / 100 ML @ 200 mls/hr IV.SIG Q8H [facility] Rx#:[id number] Vancomycin Inj 750 MG In NS Inj 257.5 / 257.5 250 ML @ 257.5 mls/hr IV.SIG Q12H [facility] Rx#:[id number] Keppra Inj 500 MG In NS Inj 100 105 / 105 ML @ 400 mls/hr IV.SIG Q12H [facility] Rx#:[id number] Oral 240 / 240 Output: Urine 500 / 500 Other: Weight 57 kg Assessment and Plan - Assessment (1) Atrial fibrillation with RVR Code(s): I48.91 - Unspecified atrial fibrillation Status: Acute (2) Acute hypotension Code(s): I95.9 - Hypotension, unspecified Status: Acute (3) Mass of lung Code(s): R91.8 - Other nonspecific abnormal finding of lung field Status: Chronic (4) Acalculous cholecystitis Code(s): K81.9 - Cholecystitis, unspecified Status: Acute (5) Hepatomegaly Code(s): R16.0 - Hepatomegaly, not elsewhere classified Status: Chronic (6) Pneumonia Code(s): J18.9 - Pneumonia, unspecified organism Status: Acute - Plan We recommend stopping the amiodarone gtt and starting Coreg for CHF and rate control. If heart rate not well controlled, we will consider adding Digoxin. Due to the patient's history, the risk for developing a [employer] bleed is higher than the benefit, no indication for anticoagulation at this time. We will continue to monitor the patient during his hospitalization. The patient was seen and evaluated by Dr. Thomas who participated in care, management and decision making. - Attending Attestation Patient seen and examined. I reviewed and agree with the evaluation and plan as presented. Start carvedilol, DC amio. Risk of anticoagulation is higher than its benefit. Continue monitoring on telemetry. (6) Pneumonia Qualifiers: Pneumonia type: due to unspecified organism Laterality: right Lung location : lower lobe of lung Qualified Code(s): J18.1 - Lobar pneumonia, unspecified organism
[2018-06-22] MEDS ORDERED: Vancomycin Inj 1,000 MG in Sodium Chlor 0.9% Inj 250 ML IV.SIG SCH (18:00)
[2018-06-22] MEDS: Pantoprazole Inj 40 MG Vial IV.PUSH SCH (20:16)
[2018-06-23] MEDS: Aztreonam Inj 2 GM in Sodium Chloride 0.9% Inj 100 ML IV.SIG SCH ×4 (00:06→22:33)
[2018-06-23] MEDS: Senna/Docusate Sodium 8.6/50 MG Tablet PO SCH ×3 (00:13→20:45)
[2018-06-23] MEDS: Morphine Sulfate 100 MG SR Tablet PO SCH ×3 (01:28→16:56)
[2018-06-23] MEDS: Oral Hygiene Kit OROPHARYNG SCH ×4 (03:19→23:16)
[2018-06-23] MEDS: metroNIDAZOLE 500 MG Tablet PO SCH ×4 (05:10→23:15)
[2018-06-23] MEDS: Insulin NovoLIN Regular Correctional Sugar Inj SQ SCH ×4 (05:33→23:16)
[2018-06-23] MEDS: Sod Chloride 0.9% Inj 1,000 ML IV.CONT SCH ×2 (05:34→16:59)
[2018-06-23 05:38] LABS: Eos # (Auto) 0.1 th/mm3 (0.0-0.4); Eos % (Auto) 0.7 % (0.0-4.0); Hematocrit 21.6 % (39.0-51.0); Hemoglobin 7.2 gm/dL (13.0-17.0); Lymph # (Auto) 0.7 th/mm3 (1.0-4.8); Lymph % (Auto) 7.3 % (9.0-44.0); Mean Corpuscular HGB Conc 33.2 % (32.0-36.0); Mean Corpuscular Volume 93.3 fL (80.0-100.0); Mean Platelet Volume 7.7 fL (7.0-11.0); Mono # (Auto) 0.3 th/mm3 (0.0-0.9); Mono % (Auto) 2.5 % (0.0-8.0); Neut # (Auto) 9.1 th/mm3 (1.8-7.7); Neut % (Auto) 89.5 % (16.0-70.0); Platelet Count 151 th/mm3 (150-450); Red Blood Count 2.32 mil/mm3 (4.50-5.90); Red Cell Distribution Width 22.7 % (11.6-17.2); White Blood Count 10.2 th/mm3 (4.0-11.0)
[2018-06-23 05:45] LABS: INR 1.2 Ratio; Prothrombin Time 11.9 sec (9.8-11.6)
[2018-06-23 06:04] LABS: Albumin 1.9 g/dL (3.4-5.0); Anion Gap 9 meq/L (5-15); Aspartate Aminotransferase 11 U/L (15-37); Blood Urea Nitrogen 31 mg/dL (7-18); Carbon Dioxide 25.5 meq/L (21.0-32.0); Chloride 105 meq/L (98-107); Glomerular Filtration Rate Greater Than 89 mL/min (>89); Glucose,Random 112 mg/dL (74-106); Magnesium 1.8 mg/dL (1.5-2.5); Sodium 139 meq/L (136-145)
[2018-06-23 06:09] LABS: Alanine Aminotransferase 13 U/L (12-78); Alkaline Phosphatase 70 U/L (45-117); Phosphorus 3.8 mg/dL (2.5-4.9); Total Protein 5.3 g/dL (6.4-8.2)
[2018-06-23] MEDS ORDERED: Acetaminophen 325 MG Tablet PO PRN (07:59)
[2018-06-23] MEDS ORDERED: Sodium Chlor 0.9% Inj 250 ML IV.SIG SCH (08:00)
[2018-06-23 08:10] LABS: Lymphocytes 7 % (9-44); Metamyelocytes 1 % (0-1); Monocytes 1 % (0-8)
[2018-06-23 08:11] LABS: Dohle Bodies Present; Ovalocytes 1+; Platelet Estimate Normal (Normal); Platelet Morphology Normal (Normal); Toxic Granulation 1+
[2018-06-23] MEDS: Lisinopril 5 MG Tablet PO SCH (09:13)
[2018-06-23] MEDS: Heparin - SQ 10,000 UNITS/ML Vial SQ SCH ×2 (09:13→20:44)
[2018-06-23] MEDS: Chlorhexidine 0.12% Oral Kit 15 ML UDC OROPHARYNG SCH ×2 (09:22→20:46)
--- NOTE | 2018-06-23 10:17 | P.PNONC ---
Subjective Interval history: Patient standing at sink getting ready to brush his teeth. He states he is feeling better. He notes he is a little weaker, however he feels like he would like to start ambulating around his room more. He requests a walker. Status post radiation simulation yesterday. He reports coughing up yellow mucus and has left pleuritic pain. Objective Vital Signs/Intake & Output: Vital Signs 06/22/18 12:00 06/22/18 16:00 06/22/18 18:47 Temperature 97.6 F 98.1 F 97.6 F Pulse Rate 92 H 96 H 103 H Respiratory Rate 18 16 20 Blood Pressure 126/94 H 130/87 126/80 Pulse Oximetry 95 98 95 06/22/18 20:00 06/22/18 21:00 06/23/18 00:00 Temperature 98.1 F 98.0 F Pulse Rate 84 92 H Respiratory Rate 18 18 18 Blood Pressure 126/86 134/93 H Pulse Oximetry 97 97 06/23/18 00:40 06/23/18 02:00 06/23/18 04:00 Temperature 97.5 F L Pulse Rate 96 H Respiratory Rate 16 20 18 Blood Pressure 136/86 Pulse Oximetry 96 06/23/18 04:30 06/23/18 08:00 Temperature 97.7 F Pulse Rate 93 H Respiratory Rate 20 22 Blood Pressure 129/81 Pulse Oximetry 100 Intake & Output 06/22/18 06/23/18 06/23/18 18:59 06:59 18:59 Intake Total 205 / 205 1585 / 1585 250 / 250 Output Total 1150 / 1150 Balance 205 / 205 435 / 435 250 / 250 Weight 57 kg Intake: IV 205 / 205 905 / 905 250 / 250 Cordarone Inj 450 MG In D5W Inj 250 / 250 150 / 150 241 ML @ 1 MG/MIN 33.33 mls/hr IV.CONT TITRATE PRN Rx#: [id number] Azactam Inj 2 GM In NS Inj 100 100 / 100 200 / 200 100 / 100 ML @ 200 mls/hr IV.SIG Q8H SUSIE Rx#:[id number] Magnesium Sulfate Inj 2 GM In 100 / 100 NS Inj 96 ML @ 50 mls/hr IV.SIG ONCE ONE Rx#:[id number] Vancomycin Inj 1,000 MG In NS 250 / 250 Inj 250 ML @ 250 mls/hr IV.SIG Q12H SUSIE Rx#:[id number] Keppra Inj 500 MG In NS Inj 100 105 / 105 105 / 105 ML @ 400 mls/hr IV.SIG Q12H SUSIE Rx#:[id number] Oral 680 / 680 Output: Urine 1150 / 1150 Other: Date of Last Bowel Movement 06/21/18 06/21/18 Result Diagrams: 06/23/18 05:26 06/23/18 05:26 Laboratory Results: Laboratory Results - last 24 hr 06/22/18 06/22/18 06/22/18 12:11 18:46 23:37 WBC RBC Hgb Hct MCV MCH MCHC RDW Plt Count MPV Prelim Diff (Auto) Neut % (Auto) Lymph % (Auto) [place] % (Auto) Eos % (Auto) Baso % (Auto) Neut # (Auto) Lymph # (Auto) [place] # (Auto) Eos # (Auto) Baso # (Auto) WBC Differential Seg Neuts % (Manual) Band Neuts % (Manual) Lymphocytes % (Manual) Monocytes % (Manual) Metamyelocytes % (Man) Abs Neuts (Manual) Differential Comment Toxic Granulation Dohle Bodies Platelet Estimate Platelet Morphology Ovalocytes PT INR Sodium Potassium Chloride Carbon Dioxide Anion Gap BUN Creatinine Estimated GFR POC Glucose 121 H 164 H 129 H Random Glucose Calcium Phosphorus Magnesium Total Bilirubin AST ALT Alkaline Phosphatase Total Protein Albumin MTS Gel Crossmatch 06/23/18 06/23/18 06/23/18 05:24 05:26 05:26 WBC 10.2 RBC 2.32 L Hgb 7.2 L Hct 21.6 L MCV 93.3 MCH 31.0 MCHC 33.2 RDW 22.7 H Plt Count 151 MPV 7.7 Prelim Diff (Auto) Slide review pending Neut % (Auto) 89.5 H Lymph % (Auto) 7.3 L [place] % (Auto) 2.5 Eos % (Auto) 0.7 Baso % (Auto) 0.0 Neut # (Auto) 9.1 H Lymph # (Auto) 0.7 L [place] # (Auto) 0.3 Eos # (Auto) 0.1 Baso # (Auto) 0.0 WBC Differential Manual diff final Seg Neuts % (Manual) 83 H Band Neuts % (Manual) 8 H Lymphocytes % (Manual) 7 L Monocytes % (Manual) 1 Metamyelocytes % (Man) 1 Abs Neuts (Manual) 9.4 H Differential Comment . Toxic Granulation 1+ H Dohle Bodies Present H Platelet Estimate Normal Platelet Morphology Normal Ovalocytes 1+ H PT INR Sodium 139 Potassium 4.0 Chloride 105 Carbon Dioxide 25.5 Anion Gap 9 BUN 31 H Creatinine 0.55 L Estimated GFR Greater than 89 POC Glucose 128 H Random Glucose 112 H Calcium 8.0 L Phosphorus 3.8 Magnesium 1.8 Total Bilirubin 0.3 AST 11 L ALT 13 Alkaline Phosphatase 70 Total Protein 5.3 L Albumin 1.9 L MTS Gel Crossmatch 06/23/18 06/23/18 05:26 09:30 WBC RBC Hgb Hct MCV MCH MCHC RDW Plt Count MPV Prelim Diff (Auto) Neut % (Auto) Lymph % (Auto) [place] % (Auto) Eos % (Auto) Baso % (Auto) Neut # (Auto) Lymph # (Auto) [place] # (Auto) Eos # (Auto) Baso # (Auto) WBC Differential Seg Neuts % (Manual) Band Neuts % (Manual) Lymphocytes % (Manual) Monocytes % (Manual) Metamyelocytes % (Man) Abs Neuts (Manual) Differential Comment Toxic Granulation Dohle Bodies Platelet Estimate Platelet Morphology Ovalocytes PT 11.9 H INR 1.2 Sodium Potassium Chloride Carbon Dioxide Anion Gap BUN Creatinine Estimated GFR POC Glucose Random Glucose Calcium Phosphorus Magnesium Total Bilirubin AST ALT Alkaline Phosphatase Total Protein Albumin MTS Gel Crossmatch See Detail Culture Results: Microbiology 06/17/18 17:30 Aerobic Blood Culture - Final Blood - Line No growth in 5 days Anaerobic Blood Culture - Final No growth in 5 days 06/17/18 17:30 Aerobic Blood Culture - Final Blood - Line No growth in 5 days Anaerobic Blood Culture - Final No growth in 5 days 06/18/18 04:20 Acid Fast Bacilli Smear - Final Bronchial Washings - Bronchial No acid fast bacilli seen 06/18/18 04:20 Fungal Smear - Final Bronchial Washings - Bronchial No fungal elements seen 06/18/18 04:20 Gram Stain - Final Bronchial - Bronchial Bronchial Culture - Final Rare growth normal respiratory gallo 06/18/18 00:20 Gram Stain - Final Sputum - Endotracheal Sputum Culture - Final Rare growth normal respiratory gallo Medications: Active Medications Generic Name Dose Route Start Last Admin Trade Name Freq PRN Reason Stop Dose Admin Carvedilol 3.125 mg 06/22/18 21:00 06/23/18 09:14 Coreg PO 3.125 mg BID SUSIE Administration Chlorhexidine Gluconate 15 ml 06/17/18 20:00 06/23/18 09:22 Peridex 0.12% Oral Kit OROPHARYNG Not Given BID@0800,2000 SUSIE Dexamethasone 4 mg 06/20/18 09:00 06/23/18 09:14 Decadron PO 4 mg BID SUSIE Administration Heparin Sodium (Porcine) 5,000 units 06/17/18 20:00 06/23/18 09:13 Heparin Inj SQ 5,000 units Q12H SUSIE Administration Sodium Chloride 1,000 mls @ 84 mls/hr 06/17/18 19:00 06/23/18 05:34 Ns Inj IV.CONT Not Given .[id number] SUSIE Levetiracetam 500 mg/ Sodium 105 mls @ 400 mls/hr 06/18/18 08:00 06/23/18 10: 04 Chloride IV.SIG 400 mls/hr Q12H SUSIE Administration Aztreonam 2 gm/ Sodium 100 mls @ 200 mls/hr 06/17/18 23:00 06/23/18 09:26 Chloride IV.SIG Infused Q8H SUSIE Infusion Sodium Chloride 250 mls @ 15 mls/hr 06/23/18 08:00 06/23/18 09:27 Ns Inj IV.SIG 06/24/18 00:39 15 mls/hr ONCE SUSIE Administration Insulin Human Regular 0 units 06/18/18 18:00 06/23/18 05:33 Novolin R Correctional Sugar Inj SQ Not Given Q6HR [facility] Protocol Lisinopril 2.5 mg 06/23/18 09:00 06/23/18 09:13 Prinivil PO 2.5 mg DAILY SUSIE Administration Metronidazole 500 mg 06/18/18 00:00 06/23/18 05:10 Flagyl PO 500 mg Q6HR SUSIE Administration Miscellaneous Medication 1 each 06/18/18 00:00 06/23/18 03:19 OROPHARYNG Not Given 0000,0400,1200,1600 SUSIE Morphine Sulfate 100 mg 06/22/18 17:00 06/23/18 09:14 Oramorph Sr PO 100 mg Q8H SUSIE Administration Oxycodone HCl 30 mg 06/22/18 12:45 06/23/18 09:25 Roxicodone PO 30 mg Q4H PRN Administration PAIN 6-10 IF TAKING PO Pantoprazole Sodium 40 mg 06/17/18 20:00 06/22/18 20:16 Protonix Inj IV.PUSH 40 mg Q24H SUSIE Administration Senna/Docusate Sodium 1 tab 06/17/18 21:00 06/23/18 09:14 Heather-Colace PO 1 tab BID SUSIE Administration Sodium Chloride 2 ml 06/17/18 21:00 06/23/18 09:19 Ns Flush IV.FLUSH 2 ml BID SUSIE Administration Sodium Chloride 2 ml 06/18/18 09:00 06/23/18 09:27 Ns Flush IV.FLUSH Not Given DAILY SUSIE Objective Remarks: GENERAL: Chronically ill-appearing male patient, in no acute distress. SKIN: Warm and dry. Small skin tears noted to right forearm, dry/healing. HEAD: Normocephalic. EYES: No scleral icterus. No injection or drainage. NECK: Supple, trachea midline. CARDIOVASCULAR: Irregularly irregular rhythm, tachycardic, rate controlled. RESPIRATORY: Posterior breath sounds scattered rhonchi, equal bilaterally. No accessory muscle use. GASTROINTESTINAL: Abdomen soft, non-tender, nondistended. EXTREMITIES: No cyanosis, or edema. MUSCULOSKELETAL: Adequate muscle tone. NEUROLOGICAL: No obvious focal deficit. Awake, alert, and oriented x3. PSYCHIATRIC: Appropriate mood and affect; insight and judgment normal. Assessment/Plan - Plan 62-year-old male with history of metastatic small cell lung cancer who was brought in by his neighbor after being found face down on the floor. He was last seen on 06/14 prior to the start of his chemotherapy. He was given a Neulasta on body injector after the etoposide and [employer]ENT[employer]ACH[employer]ES-16. 1. Status post bronchoscopy, cytology inconclusive for malignant cells. 2. Patient evaluated by Dr. wolff, recommends whole brain radiation. Status post radiation simulation yesterday, patient reports he will have 10 treatments of whole brain. 3. Continue Decadron 4 mg twice daily. 4. Leukocytosis, improving, secondary to Neulasta. 5. Continue pain medication. 6. A. fib RVR, management per cardiology. Hemoglobin today 7.2 we will transfuse 1 unit PRBC. 7. Left pleuritic chest pain, likely secondary to pneumonia. Continues on antibiotics. - Attending Statement The exam, history, and the medical decision-making described in the above note were completed with the assistance of the mid-level provider. I reviewed and agree with the findings presented. I attest that I had a [id number] encounter with the patient on the same day, and personally performed and documented my assessment and findings in the medical record. Patient had mild headache last night. No neurologic deficit. No seizure activity. He is awaiting whole brain irradiation. He has mild shortness of breath. Hemoglobin trended down to 7.2. Given that he has A. fib RVR we will give him 1 unit of para blood cell transfusion.
--- NOTE | 2018-06-23 11:26 | P.PNCA ---
Subjective Interval history: Patient denies any CP, pressure, palpitations, dizziness, edema or SOB. He does complain of generalized pain and fatigue. Medications and Allergies Allergies Allergy/AdvReac Type Severity Reaction Status Date / Time No Known Allergies Allergy Verified 06/20/18 13:15 Home Medications Medication Instructions Recorded Confirmed Type docusate sodium 100 mg PO BID 03/03/18 04/16/18 History morphine [MS Contin] 100 mg PO Q8H 03/03/18 04/16/18 History oxycodone 30 mg PO Q4-6H PRN MDD 2.5 tablets 03/03/18 04/16/18 History Unable to Obtain Home Meds 06/17/18 06/17/18 History Active Medications: Active Medications Acetaminophen (Tylenol) 650 mg PO Q6H PRN PRN Reason: FEVER Acetaminophen (Tylenol) 650 mg PO Q4H PRN PRN Reason: SEE LABEL COMMENTS Al Hydroxide/Mg Hydroxide (Milk Of Alfie Khan) 30 ml PO Q12H PRN PRN Reason: Mild Constipation Albuterol (Albuterol Neb (Prn)) 2.5 mg NEB Q2HR NEB PRN PRN Reason: SHORTNESS OF BREATH/WHEEZING Bisacodyl (Dulcolax Supp) 10 mg RECTAL DAILY PRN PRN Reason: SEVERE CONSITIPATION Carvedilol (Coreg) 3.125 mg PO BID [facility] Last Admin: 06/23/18 09:14 Dose: 3.125 mg Chlorhexidine Gluconate (Peridex 0.12% Oral Kit) 15 ml OROPHARYNG BID@0800, 2000 [facility] Last Admin: 06/23/18 09:22 Dose: Not Given Dexamethasone (Decadron) 4 mg PO BID [facility] Last Admin: 06/23/18 09:14 Dose: 4 mg Dextrose (D50w Vial) 50 ml IV.PUSH UNSCH PRN PRN Reason: PER HYPOGLYCEMIA PROTOCOL Diphenhydramine HCl (Benadryl) 25 mg PO Q4H PRN PRN Reason: SEE LABEL COMMENTS Glucagon (Glucagon Inj) 1 mg OTHER PRN PRN PRN Reason: for Hypoglycemia Protocol Heparin Sodium (Porcine) (Heparin Inj) 5,000 units SQ Q12H [facility] Last Admin: 06/23/18 09:13 Dose: 5,000 units Sodium Chloride (Ns Inj) 1,000 mls @ 84 mls/hr IV.CONT .[id number] [facility] Last Admin: 06/23/18 05:34 Dose: Not Given Levetiracetam 500 mg/ Sodium (Chloride) 105 mls @ 400 mls/hr IV.SIG Q12H SUSIE Last Infusion: 06/23/18 10:29 Dose: Infused Aztreonam 2 gm/ Sodium (Chloride) 100 mls @ 200 mls/hr IV.SIG Q8H SUSIE Last Infusion: 06/23/18 09:26 Dose: Infused Vancomycin HCl 1,000 mg/ (Sodium Chloride) 250 mls @ 250 mls/hr IV.SIG Q12H SUSIE Sodium Chloride (Ns Inj) 250 mls @ 15 mls/hr IV.SIG ONCE SUSIE Stop: 06/24/18 00:39 Last Admin: 06/23/18 09:27 Dose: 15 mls/hr Insulin Human Regular (Novolin R Correctional Sugar Inj) 0 units SQ Q6HR [facility]; Protocol Last Admin: 06/23/18 05:33 Dose: Not Given Lactulose (Lactulose Liq) 30 ml PO DAILY PRN PRN Reason: SEVERE CONSITIPATION Lactulose (Lactulose Liq) 30 ml PO DAILY PRN PRN Reason: Severe Consitipation Lisinopril (Prinivil) 2.5 mg PO DAILY [facility] Last Admin: 06/23/18 09:13 Dose: 2.5 mg Metronidazole (Flagyl) 500 mg PO Q6HR [facility] Last Admin: 06/23/18 05:10 Dose: 500 mg Miscellaneous Information ([facility] Ordered Lab Info) 0 each OTHER ONCE ONE Stop: 06/24/18 11:46 Miscellaneous Medication () 1 each OROPHARYNG 0000,0400,1200,1600 [facility] Last Admin: 06/23/18 03:19 Dose: Not Given Morphine Sulfate (Oramorph Sr) 100 mg PO Q8H [facility] Last Admin: 06/23/18 09:14 Dose: 100 mg Oxycodone HCl (Roxicodone) 30 mg PO Q4H PRN PRN Reason: PAIN 6-10 IF TAKING PO Last Admin: 06/23/18 09:25 Dose: 30 mg Pantoprazole Sodium (Protonix Inj) 40 mg IV.PUSH Q24H [facility] Last Admin: 06/22/18 20:16 Dose: 40 mg Pharmacy Profile Note (Vancomycin Consult Pharmacy) 1 each OTHER UNSCH PRN PRN Reason: Pharmacy to dose Senna/Docusate Sodium (Heather-Colace) 1 tab PO BID [facility] Last Admin: 06/23/18 09:14 Dose: 1 tab Sennosides (Senokot) 17.2 mg PO Q12H PRN PRN Reason: Moderate Constipation Sodium Chloride (Ns Flush) 2 ml IV.FLUSH PRN PRN PRN Reason: FLUSH AFTER USING IV ACCESS Sodium Chloride (Ns Flush) 2 ml IV.FLUSH BID [facility] Last Admin: 06/23/18 09:19 Dose: 2 ml Sodium Chloride (Ns Flush) 2 ml IV.FLUSH DAILY [facility] Last Admin: 06/23/18 09:27 Dose: Not Given Temazepam (Restoril) 15 mg PO HS PRN PRN Reason: INSOMNIA Physical Exam Vital signs: Vital Signs 06/22/18 12:00 06/22/18 16:00 06/22/18 18:47 Temperature 97.6 F 98.1 F 97.6 F Pulse Rate 92 H 96 H 103 H Respiratory Rate 18 16 20 Blood Pressure 126/94 H 130/87 126/80 Pulse Oximetry 95 98 95 06/22/18 20:00 06/22/18 21:00 06/23/18 00:00 Temperature 98.1 F 98.0 F Pulse Rate 84 92 H Respiratory Rate 18 18 18 Blood Pressure 126/86 134/93 H Pulse Oximetry 97 97 06/23/18 00:40 06/23/18 02:00 06/23/18 04:00 Temperature 97.5 F L Pulse Rate 96 H Respiratory Rate 16 20 18 Blood Pressure 136/86 Pulse Oximetry 96 06/23/18 04:30 06/23/18 08:00 Temperature 97.7 F Pulse Rate 93 H Respiratory Rate 20 22 Blood Pressure 129/81 Pulse Oximetry 100 Intake & Output 06/22/18 06/23/18 06/23/18 18:59 06:59 18:59 Intake Total 1585 / 1585 355 / 355 Output Total 1150 / 1150 Balance 435 / 435 355 / 355 Weight 57 kg Intake: IV 905 / 905 355 / 355 Cordarone Inj 450 MG In D5W Inj 250 / 250 150 / 150 241 ML @ 1 MG/MIN 33.33 mls/hr IV.CONT TITRATE PRN Rx#: [id number] Azactam Inj 2 GM In NS Inj 100 100 / 100 200 / 200 100 / 100 ML @ 200 mls/hr IV.SIG Q8H SUSIE Rx#:[id number] Magnesium Sulfate Inj 2 GM In 100 / 100 NS Inj 96 ML @ 50 mls/hr IV.SIG ONCE ONE Rx#:[id number] Vancomycin Inj 1,000 MG In NS 250 / 250 Inj 250 ML @ 250 mls/hr IV.SIG Q12H SUSIE Rx#:[id number] Keppra Inj 500 MG In NS Inj 100 105 / 105 105 / 105 105 / 105 ML @ 400 mls/hr IV.SIG Q12H SUSIE Rx#:[id number] Oral 680 / 680 Output: Urine 1150 / 1150 Other: Date of Last Bowel Movement 06/21/18 06/21/18 - Constitutional no acute distress - Routine HEENT Exam Head: Present: normocephalic Eye: Present: PERRL ENT: Present: mucous membranes moist - Routine Neck Exam Present: full ROM - Routine Respiratory Exam Present: CTA bilaterally - Routine Cardiovascular Exam Present: S1, S2, irregular rhythm. Absent: murmur - Routine Abdominal Exam Present: normoactive bowel sounds - Routine Extremities Exam Present: full ROM, pulses intact, normal capillary refill. Absent: cyanosis, clubbing, edema - Routine Skin Exam Present: intact - Routine Neurological Exam Present: oriented X3 - Detailed Neurological Exam: Coma Scale Eye Opening: Spontaneous Verbal Response: Oriented Motor Response: Obey commands [place] Coma Scale Total: 15 - Routine Psychiatric Exam Present: normal affect - Urinary Catheter Management Coude Cath placed during this visit: yes, but has since been removed by the nurse Reason for continuing: Not indwelling catheter Insertion date: 06/17/18 Insertion time: 16:30 Removal date: 06/18/18 Removal time: 12:00 Straight Cath placed during this visit: yes Reason for continuing: Not indwelling catheter Insertion date: 06/19/18 Insertion time: 12:00 Results 06/23/18 05:26 06/23/18 05:26 Cardiac Enzymes 06/22/18 06/23/18 Range/Units 05:20 05:26 AST 12 L 11 L (15-37) U/L Coagulation 06/22/18 06/23/18 Range/Units 05:20 05:26 PT 11.8 H 11.9 H (9.8-11.6) sec CBC 06/22/18 06/23/18 Range/Units 05:20 05:26 WBC 24.6 H 10.2 (4.0-11.0) th/mm3 RBC 2.63 L 2.32 L (4.50-5.90) mil/mm3 Hgb 7.7 L 7.2 L (13.0-17.0) gm/dL Hct 24.1 L 21.6 L (39.0-51.0) % Plt Count 213 151 (150-450) th/mm3 Neut # (Auto) 9.1 H (1.8-7.7) th/mm3 Lymph # (Auto) 0.7 L (1.0-4.8) th/mm3 [place] # (Auto) 0.3 (0.0-0.9) th/mm3 Eos # (Auto) 0.1 (0.0-0.4) th/mm3 Baso # (Auto) 0.0 (0.0-0.2) th/mm3 Comprehensive Metabolic Panel 06/22/18 06/23/18 Range/Units 05:20 05:26 Sodium 140 139 (136-145) meq/L Potassium 3.9 4.0 (3.5-5.1) meq/L Chloride 106 105 (98-107) meq/L Carbon Dioxide 27.4 25.5 (21.0-32.0) meq/L BUN 28 H 31 H (7-18) mg/dL Creatinine 0.60 0.55 L (0.60-1.30) mg/dL Calcium 7.9 L 8.0 L (8.5-10.1) mg/dL AST 12 L 11 L (15-37) U/L ALT 14 13 (12-78) U/L Alkaline Phosphatase 81 70 (45-117) U/L Total Protein 5.6 L 5.3 L (6.4-8.2) g/dL Albumin 1.9 L 1.9 L (3.4-5.0) g/dL Intake and Output 06/22/18 06/23/18 06/23/18 22:59 06:59 14:59 Intake Total 555 / 555 1030 / 1030 355 / 355 Output Total 1150 / 1150 Balance 555 / 555 -120 / -120 355 / 355 Intake: IV 555 / 555 350 / 350 355 / 355 Cordarone Inj 450 MG In D5W Inj 250 / 250 150 / 150 241 ML @ 1 MG/MIN 33.33 mls/hr IV.CONT TITRATE PRN Rx#: [id number] Azactam Inj 2 GM In NS Inj 100 100 / 100 100 / 100 100 / 100 ML @ 200 mls/hr IV.SIG Q8H SUSIE Rx#:[id number] Magnesium Sulfate Inj 2 GM In 100 / 100 NS Inj 96 ML @ 50 mls/hr IV.SIG ONCE ONE Rx#:[id number] Vancomycin Inj 1,000 MG In NS 250 / 250 Inj 250 ML @ 250 mls/hr IV.SIG Q12H SUSIE Rx#:[id number] Keppra Inj 500 MG In NS Inj 100 105 / 105 105 / 105 ML @ 400 mls/hr IV.SIG Q12H SUSIE Rx#:[id number] Oral 680 / 680 Output: Urine 1150 / 1150 Other: Date of Last Bowel Movement 06/21/18 Weight 57 kg Assessment and Plan - Assessment (1) Atrial fibrillation with RVR Code(s): I48.91 - Unspecified atrial fibrillation Status: Acute (2) Acute hypotension Code(s): I95.9 - Hypotension, unspecified Status: Acute (3) Mass of lung Code(s): R91.8 - Other nonspecific abnormal finding of lung field Status: Chronic (4) Acalculous cholecystitis Code(s): K81.9 - Cholecystitis, unspecified Status: Acute (5) Hepatomegaly Code(s): R16.0 - Hepatomegaly, not elsewhere classified Status: Chronic (6) Pneumonia Code(s): J18.9 - Pneumonia, unspecified organism Status: Acute - Plan We will continue Coreg for rate control and CHF. We will continue with current cardiac treatment plan and adjust as needed. 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 RT will be starting soon. We will continue to monitor the patient during his hospitalization. The patient was seen and evaluated by Dr. Thomas who participated in care, management and decision making. - Attending Attestation Patient seen and examined. I reviewed and agree with the evaluation and plan as presented. Continue rate control and tx for CHF. Anticoagulation contraindicated at this time. (6) Pneumonia Qualifiers: Pneumonia type: due to unspecified organism Laterality: right Lung location : lower lobe of lung Qualified Code(s): J18.1 - Lobar pneumonia, unspecified organism
[2018-06-23] MEDS: Vancomycin Inj 1,000 MG in Sodium Chlor 0.9% Inj 250 ML IV.SIG SCH ×2 (11:36→23:15)
--- NOTE | 2018-06-23 15:09 | P.DIET ---
Nutritional Evaluation Type of nutrition evaluation: initial Nutrition consult regarding: Diet Evaluation Screening comments: 06/20/18: NPO x3 Objective - Diagnosis brain and lung tumor - Objective % IBW: 64 (IBW = 142lb) Body Weight Used for Calculations: Actual Energy Needs - Lower Range (kCal/kg): 40 Energy Needs - Upper Range (kCal/kg): 45 Lower Limit kCal/kg (kCals): 1,660 Upper Limit kCal/kg (kCals): 1,868 Lower Limit Protein Factor (Grams per Kg): 1.2 Upper Limit Protein Factor (Grams per Kg): 1.5 Lower Protein Needs (Protein): 50 Upper Protein Needs (Protein): 62 Fluid Factor (ml/kg): 30 Estimated Fluid Needs (ml): 1,245 Dietitian Reviewed in Medical Record: Current diet, Curent medications, Intake & Output, Labs, Medical history Diet Order: Cardiac diet Speech Therapy Recommendations: No Objective Comments: PMH: brain and lung cancer, hx of chemotherapy, osteomyelitis Labs: BUN 31, Cr 0.55, POC glucose 145 Assessment Assessment: Pt currently at nutritional risk r/t low BMI (14.8). Pt is on a cardiac diet currently. RD to recommend Ensure Enlive TID for PO supplement. CBW = 57kg Labs reviewed. Dietitian following. Additional recs depending on medical course. Recommendations: 1. RD to recommend Ensure Enlive TID for PO supplement 2. Dietitian following 3. Additional recs depending on medical course. Dietitian to Monitor: Lab values, Supplement acceptance, Intake & Output, Diet tolerance, Weight change, PO Intake, Diet advancement, Medical course
--- NOTE | 2018-06-23 16:31 | P.PNIM ---
Subjective Interval history: Nursing denies any acute changes overnight. Patient himself reports having some abdominal pain. Physical Exam Vital signs: Vital Signs 06/22/18 18:47 06/22/18 20:00 06/22/18 21:00 Temperature 97.6 F 98.1 F Pulse Rate 103 H 84 Respiratory Rate 20 18 18 Blood Pressure 126/80 126/86 Pulse Oximetry 95 97 06/23/18 00:00 06/23/18 00:40 06/23/18 02:00 Temperature 98.0 F Pulse Rate 92 H Respiratory Rate 18 16 20 Blood Pressure 134/93 H Pulse Oximetry 97 06/23/18 04:00 06/23/18 04:30 06/23/18 08:00 Temperature 97.5 F L 97.7 F Pulse Rate 96 H 93 H Respiratory Rate 18 20 22 Blood Pressure 136/86 129/81 Pulse Oximetry 96 100 06/23/18 11:30 06/23/18 15:27 Temperature 98.0 F 97.8 F Pulse Rate 94 H 113 H Respiratory Rate 24 20 Blood Pressure 131/81 131/81 Pulse Oximetry 94 L 96 Intake & Output 06/22/18 06/23/18 06/23/18 18:59 06:59 18:59 Intake Total 205 / 205 1585 / 1585 705 / 705 Output Total 1150 / 1150 Balance 205 / 205 435 / 435 705 / 705 Weight 57 kg Intake: IV / 905 / 905 705 / 705 Cordarone Inj 450 MG In D5W Inj 250 / 250 150 / 150 241 ML @ 1 MG/MIN 33.33 mls/hr IV.CONT TITRATE PRN Rx#: [id number] Azactam Inj 2 GM In NS Inj 100 100 / 100 200 / 200 200 / 200 ML @ 200 mls/hr IV.SIG Q8H SUSIE Rx#:[id number] Magnesium Sulfate Inj 2 GM In 100 / 100 NS Inj 96 ML @ 50 mls/hr IV.SIG ONCE ONE Rx#:[id number] Vancomycin Inj 1,000 MG In NS 250 / 250 250 / 250 Inj 250 ML @ 250 mls/hr IV.SIG Q12H SUSIE Rx#:[id number] Keppra Inj 500 MG In NS Inj 100 105 / 105 105 / 105 105 / 105 ML @ 400 mls/hr IV.SIG Q12H SUSIE Rx#:[id number] Oral 680 / 680 Intake (Blood Product) Amt 0 / 0 Rbc As-3 Leukoreduced Unit 0 / 0 [id number] Output: Urine 1150 / 1150 Other: Date of Last Bowel Movement 06/21/18 06/21/18 Narrative: Heart sounds regular rate rhythm, no murmurs Clear lungs bilaterally, unlabored breathing No abdominal tenderness to palpation Sitting up in bed, awake, alert Receiving blood transfusion at this time - Urinary Catheter Management Coude Cath placed during this visit: yes, but has since been removed by the nurse Reason for continuing: Not indwelling catheter Insertion date: 06/17/18 Insertion time: 16:30 Removal date: 06/18/18 Removal time: 12:00 Straight Cath placed during this visit: yes Reason for continuing: Not indwelling catheter Insertion date: 06/19/18 Insertion time: 12:00 Results - Labs CBC & Chem 7: 06/23/18 05:26 06/23/18 05:26 Laboratory Results - last 24 hr 06/22/18 06/22/18 06/23/18 18:46 23:37 05:24 WBC RBC Hgb Hct MCV MCH MCHC RDW Plt Count MPV Prelim Diff (Auto) Neut % (Auto) Lymph % (Auto) Frio % (Auto) Eos % (Auto) Baso % (Auto) Neut # (Auto) Lymph # (Auto) Frio # (Auto) Eos # (Auto) Baso # (Auto) WBC Differential Seg Neuts % (Manual) Band Neuts % (Manual) Lymphocytes % (Manual) Monocytes % (Manual) Metamyelocytes % (Man) Abs Neuts (Manual) Differential Comment Toxic Granulation Dohle Bodies Platelet Estimate Platelet Morphology Ovalocytes PT INR Sodium Potassium Chloride Carbon Dioxide Anion Gap BUN Creatinine Estimated GFR POC Glucose 164 H 129 H 128 H Random Glucose Calcium Phosphorus Magnesium Total Bilirubin AST ALT Alkaline Phosphatase Total Protein Albumin Blood Type Antibody Screen MTS Gel Crossmatch 06/23/18 06/23/18 06/23/18 05:26 05:26 05:26 WBC 10.2 RBC 2.32 L Hgb 7.2 L Hct 21.6 L MCV 93.3 MCH 31.0 MCHC 33.2 RDW 22.7 H Plt Count 151 MPV 7.7 Prelim Diff (Auto) Slide review pending Neut % (Auto) 89.5 H Lymph % (Auto) 7.3 L Frio % (Auto) 2.5 Eos % (Auto) 0.7 Baso % (Auto) 0.0 Neut # (Auto) 9.1 H Lymph # (Auto) 0.7 L Frio # (Auto) 0.3 Eos # (Auto) 0.1 Baso # (Auto) 0.0 WBC Differential Manual diff final Seg Neuts % (Manual) 83 H Band Neuts % (Manual) 8 H Lymphocytes % (Manual) 7 L Monocytes % (Manual) 1 Metamyelocytes % (Man) 1 Abs Neuts (Manual) 9.4 H Differential Comment . Toxic Granulation 1+ H Dohle Bodies Present H Platelet Estimate Normal Platelet Morphology Normal Ovalocytes 1+ H PT 11.9 H INR 1.2 Sodium 139 Potassium 4.0 Chloride 105 Carbon Dioxide 25.5 Anion Gap 9 BUN 31 H Creatinine 0.55 L Estimated GFR Greater than 89 POC Glucose Random Glucose 112 H Calcium 8.0 L Phosphorus 3.8 Magnesium 1.8 Total Bilirubin 0.3 AST 11 L ALT 13 Alkaline Phosphatase 70 Total Protein 5.3 L Albumin 1.9 L Blood Type Antibody Screen MTS Gel Crossmatch 06/23/18 06/23/18 09:30 11:39 WBC RBC Hgb Hct MCV MCH MCHC RDW Plt Count MPV Prelim Diff (Auto) Neut % (Auto) Lymph % (Auto) Frio % (Auto) Eos % (Auto) Baso % (Auto) Neut # (Auto) Lymph # (Auto) Frio # (Auto) Eos # (Auto) Baso # (Auto) WBC Differential Seg Neuts % (Manual) Band Neuts % (Manual) Lymphocytes % (Manual) Monocytes % (Manual) Metamyelocytes % (Man) Abs Neuts (Manual) Differential Comment Toxic Granulation Dohle Bodies Platelet Estimate Platelet Morphology Ovalocytes PT INR Sodium Potassium Chloride Carbon Dioxide Anion Gap BUN Creatinine Estimated GFR POC Glucose 145 H Random Glucose Calcium Phosphorus Magnesium Total Bilirubin AST ALT Alkaline Phosphatase Total Protein Albumin Blood Type A Positive Antibody Screen Negative MTS Gel Crossmatch See Detail Assessment and Plan - Plan This patient is a 62-year-old male with a diagnosis of small cell lung cancer with metastasis. The patient initially was admitted with acute encephalopathy and had a seizure at home and was found to have brain metastases. He was subsequently intubated and admitted to the intensive care unit, loaded with antiepileptics. Ultimately extubated and transferred to [facility], on room air now. Neurology, oncology, pulmonology following. Was started on antibiotics for aspiration pneumonia Aspiration pneumonia Continue vancomycin, aztreonam, Flagyl for 4 more days Seizures Brain metastases secondary to lung cancer -stable now on Keppra, neurology following Continue Decadron in order to minimize brain edema -Oncology following, had radiation simulation yesterday, recommending whole brain radiation -Patient status post bronchoscopy, cytology inconclusive for any malignant cells A. fib with RVR Systolic CHF chronic RVR resolved, now off of amiodarone drip Continue Coreg beta-zarina,, lisinopril leukocytosis Likely secondary to Neulasta, improving anemia - 1 unit of blood per oncology today -Chronic pain Continue current pain medication regimen. Adjust medications as needed. SCDs for DVT prophylaxis, no anticoagulation due to brain metastasis. No driving, operating any heavy machinery or dangerous machinery, swimming alone for at least 6 months of being seizure, spell free. Discharge Planning: Pending clearance with neurology, oncology
[2018-06-23] MEDS: Pantoprazole Inj 40 MG Vial IV.PUSH SCH (20:44)
[2018-06-24] MEDS: Morphine Sulfate 100 MG SR Tablet PO SCH ×3 (01:07→17:00)
[2018-06-24] MEDS: Oral Hygiene Kit OROPHARYNG SCH ×3 (03:59→15:37)
[2018-06-24] MEDS: metroNIDAZOLE 500 MG Tablet PO SCH ×3 (06:00→17:00)
[2018-06-24] MEDS: Aztreonam Inj 2 GM in Sodium Chloride 0.9% Inj 100 ML IV.SIG SCH ×2 (06:00→14:51)
[2018-06-24] MEDS: Insulin NovoLIN Regular Correctional Sugar Inj SQ SCH ×3 (06:36→17:03)
[2018-06-24] MEDS: Sod Chloride 0.9% Inj 1,000 ML IV.CONT SCH ×2 (06:37→17:03)
[2018-06-24] MEDS ORDERED: Cathflo Activase Inj 2 MG Vial I-CATHETER ONE (06:44)
[2018-06-24] MEDS ORDERED: Heparin Central Flush 100 UNIT/ML 5 ML Vial IV.FLUSH PRN ×2 (06:51)
[2018-06-24] MEDS: Lisinopril 5 MG Tablet PO SCH (08:06)
[2018-06-24] MEDS: Chlorhexidine 0.12% Oral Kit 15 ML UDC OROPHARYNG SCH ×2 (08:07→21:21)
[2018-06-24] MEDS: Heparin - SQ 10,000 UNITS/ML Vial SQ SCH ×2 (08:07→21:19)
[2018-06-24] MEDS: Senna/Docusate Sodium 8.6/50 MG Tablet PO SCH ×2 (08:13→21:21)
[2018-06-24 10:46] LABS: Hematocrit 27.2 % (39.0-51.0); Hemoglobin 9.4 gm/dL (13.0-17.0); Mean Corpuscular HGB Conc 34.5 % (32.0-36.0); Mean Corpuscular Hemoglobin 31.1 pg (27.0-34.0); Mean Corpuscular Volume 90.2 fL (80.0-100.0); Platelet Count 114 th/mm3 (150-450); Red Blood Count 3.02 mil/mm3 (4.50-5.90); Red Cell Distribution Width 21.5 % (11.6-17.2); White Blood Count 3.9 th/mm3 (4.0-11.0)
[2018-06-24 10:55] LABS: INR 1.2 Ratio; Prothrombin Time 12.3 sec (9.8-11.6)
[2018-06-24 11:19] LABS: Alanine Aminotransferase 19 U/L (12-78); Albumin 2.3 g/dL (3.4-5.0); Anion Gap 9 meq/L (5-15); Aspartate Aminotransferase 19 U/L (15-37); Blood Urea Nitrogen 33 mg/dL (7-18); Calcium 7.9 mg/dL (8.5-10.1); Carbon Dioxide 28.5 meq/L (21.0-32.0); Chloride 102 meq/L (98-107); Glomerular Filtration Rate Greater Than 89 mL/min (>89); Glucose,Random 156 mg/dL (74-106); Magnesium 1.5 mg/dL (1.5-2.5); Phosphorus 3.3 mg/dL (2.5-4.9); Potassium 3.5 meq/L (3.5-5.1); Sodium 139 meq/L (136-145)
[2018-06-24 11:22] LABS: Alkaline Phosphatase 78 U/L (45-117)
[2018-06-24] MEDS ORDERED: Pharmacy Ordered Lab Info OTHER ONE (11:45)
[2018-06-24] MEDS: Vancomycin Inj 1,000 MG in Sodium Chlor 0.9% Inj 250 ML IV.SIG SCH (13:06)
--- NOTE | 2018-06-24 14:22 | P.PNCA ---
Subjective Interval history: Patient sitting at side of bed at this time. Patient denies any CP, pressure, palpitations, dizziness, edema or SOB. Patient states that he is feeling better. Medications and Allergies Allergies Allergy/AdvReac Type Severity Reaction Status Date / Time No Known Allergies Allergy Verified 06/20/18 13:15 Home Medications Medication Instructions Recorded Confirmed Type docusate sodium 100 mg PO BID 03/03/18 04/16/18 History morphine [MS Contin] 100 mg PO Q8H 03/03/18 04/16/18 History oxycodone 30 mg PO Q4-6H PRN MDD 2.5 tablets 03/03/18 04/16/18 History Active Medications: Active Medications Acetaminophen (Tylenol) 650 mg PO Q6H PRN PRN Reason: FEVER Acetaminophen (Tylenol) 650 mg PO Q4H PRN PRN Reason: SEE LABEL COMMENTS Last Admin: 06/23/18 14:36 Dose: 650 mg Al Hydroxide/Mg Hydroxide (Milk Of Magnjan Liq) 30 ml PO Q12H PRN PRN Reason: Mild Constipation Albuterol (Albuterol Neb (Prn)) 2.5 mg NEB Q2HR NEB PRN PRN Reason: SHORTNESS OF BREATH/WHEEZING Bisacodyl (Dulcolax Supp) 10 mg RECTAL DAILY PRN PRN Reason: SEVERE CONSITIPATION Carvedilol (Coreg) 3.125 mg PO BID [facility] Last Admin: 06/24/18 08:06 Dose: 3.125 mg Chlorhexidine Gluconate (Peridex 0.12% Oral Kit) 15 ml OROPHARYNG BID@0800, 2000 [facility] Last Admin: 06/24/18 08:07 Dose: Not Given Dexamethasone (Decadron) 4 mg PO BID [facility] Last Admin: 06/24/18 08:06 Dose: 4 mg Dextrose (D50w Vial) 50 ml IV.PUSH UNSCH PRN PRN Reason: PER HYPOGLYCEMIA PROTOCOL Diphenhydramine HCl (Benadryl) 25 mg PO Q4H PRN PRN Reason: SEE LABEL COMMENTS Last Admin: 06/23/18 14:36 Dose: 25 mg Glucagon (Glucagon Inj) 1 mg OTHER PRN PRN PRN Reason: for Hypoglycemia Protocol Heparin Sodium (Porcine) (Heparin Inj) 5,000 units SQ Q12H [facility] Last Admin: 06/24/18 08:07 Dose: 5,000 units Heparin Sodium (Porcine) (Heparin Central Flush) 500 unit IV.FLUSH PRN PRN PRN Reason: Flush infusaport Heparin Sodium (Porcine) (Heparin Central Flush) 250 unit IV.FLUSH PRN PRN PRN Reason: Flush Infusapot Last Admin: 06/24/18 08:06 Dose: 250 unit Sodium Chloride (Ns Inj) 1,000 mls @ 84 mls/hr IV.CONT .[id number] [facility] Last Admin: 06/24/18 06:37 Dose: Not Given Levetiracetam 500 mg/ Sodium (Chloride) 105 mls @ 400 mls/hr IV.SIG Q12H SUSIE Last Infusion: 06/24/18 10:21 Dose: Infused Aztreonam 2 gm/ Sodium (Chloride) 100 mls @ 200 mls/hr IV.SIG Q8H SUSIE Last Infusion: 06/24/18 07:02 Dose: Infused Vancomycin HCl 1,000 mg/ (Sodium Chloride) 250 mls @ 250 mls/hr IV.SIG Q12H SUSIE Last Admin: 06/24/18 13:06 Dose: 250 mls/hr Insulin Human Regular (Novolin R Correctional Sugar Inj) 0 units SQ Q6HR [facility]; Protocol Last Admin: 06/24/18 13:05 Dose: Not Given Lactulose (Lactulose Liq) 30 ml PO DAILY PRN PRN Reason: SEVERE CONSITIPATION Lactulose (Lactulose Liq) 30 ml PO DAILY PRN PRN Reason: Severe Consitipation Lisinopril (Prinivil) 2.5 mg PO DAILY [facility] Last Admin: 06/24/18 08:06 Dose: 2.5 mg Metronidazole (Flagyl) 500 mg PO Q6HR [facility] Last Admin: 06/24/18 13:05 Dose: 500 mg Miscellaneous Medication () 1 each OROPHARYNG 0000,0400,1200,1600 [facility] Last Admin: 06/24/18 13:05 Dose: Not Given Morphine Sulfate (Oramorph Sr) 100 mg PO Q8H [facility] Last Admin: 06/24/18 08:06 Dose: 100 mg Oxycodone HCl (Roxicodone) 30 mg PO Q4H PRN PRN Reason: PAIN 6-10 IF TAKING PO Last Admin: 06/24/18 13:04 Dose: 30 mg Pantoprazole Sodium (Protonix Inj) 40 mg IV.PUSH Q24H [facility] Last Admin: 06/23/18 20:44 Dose: 40 mg Pharmacy Profile Note (Vancomycin Consult Pharmacy) 1 each OTHER UNSCH PRN PRN Reason: Pharmacy to dose Senna/Docusate Sodium (Heather-Colace) 1 tab PO BID [facility] Last Admin: 06/24/18 08:13 Dose: Not Given Sennosides (Senokot) 17.2 mg PO Q12H PRN PRN Reason: Moderate Constipation Sodium Chloride (Ns Flush) 2 ml IV.FLUSH PRN PRN PRN Reason: FLUSH AFTER USING IV ACCESS Sodium Chloride (Ns Flush) 2 ml IV.FLUSH BID [facility] Last Admin: 06/24/18 08:13 Dose: 2 ml Sodium Chloride (Ns Flush) 2 ml IV.FLUSH DAILY [facility] Last Admin: 06/24/18 08:07 Dose: Not Given Sodium Chloride (Ns Flush) 5 ml IV.FLUSH PRN PRN PRN Reason: Flush Infusaport Temazepam (Restoril) 15 mg PO HS PRN PRN Reason: INSOMNIA Physical Exam Vital signs: Vital Signs 06/23/18 15:27 06/23/18 20:00 06/23/18 23:05 Temperature 97.8 F 97.8 F Pulse Rate 113 H 94 H Respiratory Rate 20 18 16 Blood Pressure 131/81 128/87 Pulse Oximetry 96 98 06/24/18 00:00 06/24/18 01:40 06/24/18 04:00 Temperature 97.5 F L 97.7 F Pulse Rate 89 75 Respiratory Rate 16 20 18 Blood Pressure 149/99 H 144/97 H Pulse Oximetry 98 98 Intake & Output 06/23/18 06/24/18 06/24/18 18:59 06:59 18:59 Intake Total 2105 / 2105 455 / 455 Output Total 100 / 100 Balance 2105 / 2105 355 / 355 Weight 60.3 kg Intake: IV 705 / 705 455 / 455 Cordarone Inj 450 MG In D5W Inj 150 / 150 241 ML @ 1 MG/MIN 33.33 mls/hr IV.CONT TITRATE PRN Rx#: [id number] Azactam Inj 2 GM In NS Inj 100 200 / 200 100 / 100 100 / 100 ML @ 200 mls/hr IV.SIG Q8H SUSIE Rx#:[id number] NS Inj 250 ML @ 15 mls/hr IV. 0 / 0 SIG ONCE SUSIE Rx#:[id number] Vancomycin Inj 1,000 MG In NS 250 / 250 250 / 250 Inj 250 ML @ 250 mls/hr IV.SIG Q12H SUSIE Rx#:[id number] Keppra Inj 500 MG In NS Inj 100 105 / 105 105 / 105 105 / 105 ML @ 400 mls/hr IV.SIG Q12H SUSIE Rx#:[id number] Oral 1400 / 1400 Intake (Blood Product) Amt 0 / 0 Rbc As-3 Leukoreduced Unit 0 / 0 [id number] Output: Urine 100 / 100 Other: # Voids 8 1 Date of Last Bowel Movement 06/23/18 06/23/18 06/24/18 # Bowel Movements 5 - Constitutional no acute distress - Routine HEENT Exam Head: Present: normocephalic Eye: Present: PERRL ENT: Present: mucous membranes moist - Routine Neck Exam Present: full ROM - Routine Respiratory Exam Present: CTA bilaterally - Routine Cardiovascular Exam Present: S1, S2, murmur, irregular rhythm. Absent: gallop, rubs - Routine Abdominal Exam Present: normoactive bowel sounds - Routine Neurological Exam Present: oriented X3 - Detailed Neurological Exam: Coma Scale Eye Opening: Spontaneous Verbal Response: Oriented Motor Response: Obey commands [place] Coma Scale Total: 15 - Routine Psychiatric Exam Present: normal affect - Urinary Catheter Management Coude Cath placed during this visit: yes, but has since been removed by the nurse Reason for continuing: Not indwelling catheter Insertion date: 06/17/18 Insertion time: 16:30 Removal date: 06/18/18 Removal time: 12:00 Straight Cath placed during this visit: yes Reason for continuing: Not indwelling catheter Insertion date: 06/19/18 Insertion time: 12:00 Results 06/24/18 10:31 06/24/18 10:31 Cardiac Enzymes 06/23/18 06/24/18 Range/Units 05:26 10:31 AST 11 L 19 (15-37) U/L Coagulation 06/23/18 06/24/18 Range/Units 05:26 10:31 PT 11.9 H 12.3 H (9.8-11.6) sec CBC 06/23/18 06/24/18 Range/Units 05:26 10:31 WBC 10.2 3.9 L (4.0-11.0) th/mm3 RBC 2.32 L 3.02 L (4.50-5.90) mil/mm3 Hgb 7.2 L 9.4 L D (13.0-17.0) gm/dL Hct 21.6 L 27.2 L (39.0-51.0) % Plt Count 151 114 L (150-450) th/mm3 Neut # (Auto) 9.1 H (1.8-7.7) th/mm3 Lymph # (Auto) 0.7 L (1.0-4.8) th/mm3 [place] # (Auto) 0.3 (0.0-0.9) th/mm3 Eos # (Auto) 0.1 (0.0-0.4) th/mm3 Baso # (Auto) 0.0 (0.0-0.2) th/mm3 Comprehensive Metabolic Panel 06/23/18 06/24/18 Range/Units 05:26 10:31 Sodium 139 139 (136-145) meq/L Potassium 4.0 3.5 (3.5-5.1) meq/L Chloride 105 102 (98-107) meq/L Carbon Dioxide 25.5 28.5 (21.0-32.0) meq/L BUN 31 H 33 H (7-18) mg/dL Creatinine 0.55 L 0.69 (0.60-1.30) mg/dL Calcium 8.0 L 7.9 L (8.5-10.1) mg/dL AST 11 L 19 (15-37) U/L ALT 13 19 (12-78) U/L Alkaline Phosphatase 70 78 (45-117) U/L Total Protein 5.3 L 6.0 L D (6.4-8.2) g/dL Albumin 1.9 L 2.3 L (3.4-5.0) g/dL Intake and Output 06/23/18 06/24/18 06/24/18 22:59 06:59 14:59 Intake Total 1500 / 1500 455 / 455 Output Total 100 / 100 Balance 1400 / 1400 / 455 Intake: IV 100 / 100 455 / 455 Azactam Inj 2 GM In NS Inj 100 100 / 100 100 / 100 100 / 100 ML @ 200 mls/hr IV.SIG Q8H SUSIE Rx#:[id number] NS Inj 250 ML @ 15 mls/hr IV. 0 / 0 SIG ONCE SUSIE Rx#:[id number] Vancomycin Inj 1,000 MG In NS 250 / 250 Inj 250 ML @ 250 mls/hr IV.SIG Q12H SUSIE Rx#:[id number] Keppra Inj 500 MG In NS Inj 100 105 / 105 105 / 105 ML @ 400 mls/hr IV.SIG Q12H SUSIE Rx#:[id number] Oral 1400 / 1400 Intake (Blood Product) Amt 0 / 0 Rbc As-3 Leukoreduced Unit 0 / 0 [id number] Output: Urine 100 / 100 Other: # Voids 8 1 Date of Last Bowel Movement 06/23/18 06/24/18 # Bowel Movements 5 Weight 60.3 kg Assessment and Plan - Assessment (1) Atrial fibrillation with RVR Code(s): I48.91 - Unspecified atrial fibrillation Status: Acute (2) Acute hypotension Code(s): I95.9 - Hypotension, unspecified Status: Acute (3) Mass of lung Code(s): R91.8 - Other nonspecific abnormal finding of lung field Status: Chronic (4) Acalculous cholecystitis Code(s): K81.9 - Cholecystitis, unspecified Status: Acute (5) Hepatomegaly Code(s): R16.0 - Hepatomegaly, not elsewhere classified Status: Chronic (6) Pneumonia Code(s): J18.9 - Pneumonia, unspecified organism Status: Acute - Plan Patients remains in atrial fibrillation with controlled rate, continue Coreg. Continue therapy for CHF. He is scheduled to start radiation treatment on Wednesday. Due to the patient's history, the risk for developing a [employer] bleed remains higher than the benefit, no indication for anticoagulation at this time. We will continue to monitor the patient during his hospitalization. The patient was seen and evaluated by Dr. Thomas who participated in care, management and decision making. - Attending Attestation Patient seen and examined. I reviewed and agree with the evaluation and plan as presented. Continue rate control and therapy for CHF. RT starting next week Continue monitoring on telemetry. (6) Pneumonia Qualifiers: Pneumonia type: due to unspecified organism Laterality: right Lung location : lower lobe of lung Qualified Code(s): J18.1 - Lobar pneumonia, unspecified organism
--- NOTE | 2018-06-24 15:31 | P.PNIM ---
Subjective Interval history: Follow-up for acute respiratory failure, breakthrough seizures, A. fib with RVR , brain metastases. Nursing denies any acute changes overnight. Patient himself says he still feels too weak and does not feel comfortable going home tonight where he will be all by himself. Says he can probably be with family tomorrow. Says he gets "out of gas" just coming back to the bed from the restroom. Physical Exam Vital signs: Vital Signs 06/23/18 20:00 06/23/18 23:05 06/24/18 00:00 Temperature 97.8 F 97.5 F L Pulse Rate 94 H 89 Respiratory Rate 18 16 16 Blood Pressure 128/87 149/99 H Pulse Oximetry 98 98 06/24/18 01:40 06/24/18 04:00 Temperature 97.7 F Pulse Rate 75 Respiratory Rate 20 18 Blood Pressure 144/97 H Pulse Oximetry 98 Intake & Output 06/23/18 06/24/18 06/24/18 18:59 06:59 18:59 Intake Total 2105 / 2105 455 / 455 Output Total 100 / 100 Balance 2105 / 2105 355 / 355 / Weight 60.3 kg Intake: IV 705 / 705 455 / 455 / 205 Cordarone Inj 450 MG In D5W Inj 150 / 150 241 ML @ 1 MG/MIN 33.33 mls/hr IV.CONT TITRATE PRN Rx#: [id number] Azactam Inj 2 GM In NS Inj 100 200 / 200 100 / 100 100 / 100 ML @ 200 mls/hr IV.SIG Q8H SUSIE Rx#:[id number] NS Inj 250 ML @ 15 mls/hr IV. 0 / 0 SIG ONCE SUSIE Rx#:[id number] Vancomycin Inj 1,000 MG In NS 250 / 250 250 / 250 Inj 250 ML @ 250 mls/hr IV.SIG Q12H SUISE Rx#:[id number] Keppra Inj 500 MG In NS Inj 100 105 / 105 105 / 105 105 / 105 ML @ 400 mls/hr IV.SIG Q12H SUSIE Rx#:[id number] Oral 1400 / 1400 Intake (Blood Product) Amt 0 / 0 Rbc As-3 Leukoreduced Unit 0 / 0 [id number] Output: Urine 100 / 100 Other: # Voids 8 1 Date of Last Bowel Movement 06/23/18 06/23/18 06/24/18 # Bowel Movements 5 Narrative: Heart sounds regular rate rhythm, no murmurs Clear lungs bilaterally, unlabored breathing Ambulating to the restroom just fine but does appear to be tired when he gets back to the bed - Urinary Catheter Management Coude Cath placed during this visit: yes, but has since been removed by the nurse Reason for continuing: Not indwelling catheter Insertion date: 06/17/18 Insertion time: 16:30 Removal date: 06/18/18 Removal time: 12:00 Straight Cath placed during this visit: yes Reason for continuing: Not indwelling catheter Insertion date: 06/19/18 Insertion time: 12:00 Results - Labs CBC & Chem 7: 06/24/18 10:31 06/24/18 10:31 Laboratory Results - last 24 hr 06/23/18 06/23/18 06/23/18 09:30 16:53 23:14 WBC RBC Hgb Hct MCV MCH MCHC RDW Plt Count MPV PT INR Sodium Potassium Chloride Carbon Dioxide Anion Gap BUN Creatinine Estimated GFR POC Glucose 123 H 120 H Random Glucose Calcium Phosphorus Magnesium Total Bilirubin AST ALT Alkaline Phosphatase Total Protein Albumin Vancomycin Trough Blood Type A Positive Antibody Screen Negative MTS Gel Crossmatch See Detail 06/24/18 06/24/18 06/24/18 06:27 10:31 10:31 WBC 3.9 L RBC 3.02 L Hgb 9.4 L D Hct 27.2 L MCV 90.2 MCH 31.1 MCHC 34.5 RDW 21.5 H Plt Count 114 L MPV 8.0 PT 12.3 H INR 1.2 Sodium Potassium Chloride Carbon Dioxide Anion Gap BUN Creatinine Estimated GFR POC Glucose 106 Random Glucose Calcium Phosphorus Magnesium Total Bilirubin AST ALT Alkaline Phosphatase Total Protein Albumin Vancomycin Trough Blood Type Antibody Screen MTS Gel Crossmatch 06/24/18 06/24/18 10:31 13:00 WBC RBC Hgb Hct MCV MCH MCHC RDW Plt Count MPV PT INR Sodium 139 Potassium 3.5 Chloride 102 Carbon Dioxide 28.5 Anion Gap 9 BUN 33 H Creatinine 0.69 Estimated GFR Greater than 89 POC Glucose Random Glucose 156 H Calcium 7.9 L Phosphorus 3.3 Magnesium 1.5 Total Bilirubin 0.5 AST 19 ALT 19 Alkaline Phosphatase 78 Total Protein 6.0 L D Albumin 2.3 L Vancomycin Trough 13.1 H Blood Type Antibody Screen MTS Gel Crossmatch Assessment and Plan - Plan This patient is a 62-year-old male with a diagnosis of small cell lung cancer with metastasis. The patient initially was admitted with acute encephalopathy and had a seizure at home and was found to have brain metastases. He was subsequently intubated and admitted to the intensive care unit, loaded with antiepileptics. Ultimately extubated and transferred to [facility], on room air now. Neurology, oncology, pulmonology following. Was started on antibiotics for aspiration pneumonia Aspiration pneumonia Continue vancomycin, aztreonam, Flagyl for 3 more days -Upon discharge can likely do well with just Augmentin, pro-calcitonin level pending Seizures Brain metastases secondary to lung cancer -stable now on Keppra, neurology following Continue Decadron in order to minimize brain edema -Oncology following, had radiation simulation yesterday, recommending whole brain radiation -Patient status post bronchoscopy, cytology inconclusive for any malignant cells A. fib with RVR Systolic CHF chronic RVR resolved, now off of amiodarone drip Continue Coreg beta-zarina,, lisinopril leukocytosis Likely secondary to Neulasta, improving anemia -Holding steady after transfusion yesterday per oncology -Chronic pain Continue current pain medication regimen. Adjust medications as needed. SCDs for DVT prophylaxis, no anticoagulation due to brain metastasis. No driving, operating any heavy machinery or dangerous machinery, swimming alone for at least 6 months of being seizure, spell free. Discharge Planning: Patient is clear for discharge medically speaking however from a rehab standpoint it would be an unsafe discharge. Radiation oncology is set up for him next week. Clear to resume baby aspirin per oncology but to refrain from anticoagulation given his brain metastases.
[2018-06-24] MEDS: Pantoprazole Inj 40 MG Vial IV.PUSH SCH (21:14)
[2018-06-25] MEDS: Aztreonam Inj 2 GM in Sodium Chloride 0.9% Inj 100 ML IV.SIG SCH ×4 (00:38→23:18)
[2018-06-25] MEDS: metroNIDAZOLE 500 MG Tablet PO SCH ×4 (01:02→18:02)
[2018-06-25] MEDS: Morphine Sulfate 100 MG SR Tablet PO SCH ×3 (01:02→18:02)
[2018-06-25] MEDS: Oral Hygiene Kit OROPHARYNG SCH ×5 (01:02→23:23)
[2018-06-25] MEDS: Vancomycin Inj 1,000 MG in Sodium Chlor 0.9% Inj 250 ML IV.SIG SCH ×2 (01:02→13:11)
[2018-06-25] MEDS: Insulin NovoLIN Regular Correctional Sugar Inj SQ SCH ×5 (01:09→23:23)
[2018-06-25] MEDS: Sod Chloride 0.9% Inj 1,000 ML IV.CONT SCH ×2 (05:04→19:20)
[2018-06-25 08:29] LABS: Hematocrit 30.5 % (39.0-51.0); Hemoglobin 10.2 gm/dL (13.0-17.0); Mean Corpuscular HGB Conc 33.3 % (32.0-36.0); Mean Corpuscular Hemoglobin 30.2 pg (27.0-34.0); Mean Corpuscular Volume 90.6 fL (80.0-100.0); Mean Platelet Volume 8.3 fL (7.0-11.0); Platelet Count 93 th/mm3 (150-450); Red Blood Count 3.37 mil/mm3 (4.50-5.90); Red Cell Distribution Width 21.5 % (11.6-17.2); White Blood Count 3.3 th/mm3 (4.0-11.0)
[2018-06-25 08:45] LABS: INR 1.1 Ratio; Prothrombin Time 11.2 sec (9.8-11.6)
[2018-06-25 08:47] LABS: Albumin 2.6 g/dL (3.4-5.0); Anion Gap 9 meq/L (5-15); Aspartate Aminotransferase 18 U/L (15-37); Blood Urea Nitrogen 25 mg/dL (7-18); Calcium 8.3 mg/dL (8.5-10.1); Carbon Dioxide 28.9 meq/L (21.0-32.0); Chloride 100 meq/L (98-107); Glomerular Filtration Rate Greater Than 89 mL/min (>89); Glucose,Random 100 mg/dL (74-106); Magnesium 1.5 mg/dL (1.5-2.5); Potassium 3.9 meq/L (3.5-5.1); Sodium 138 meq/L (136-145)
[2018-06-25 08:48] LABS: Alanine Aminotransferase 18 U/L (12-78); Phosphorus 3.4 mg/dL (2.5-4.9)
[2018-06-25 08:51] LABS: Alkaline Phosphatase 78 U/L (45-117); Total Protein 6.5 g/dL (6.4-8.2)
[2018-06-25] MEDS: Lisinopril 5 MG Tablet PO SCH (09:36)
[2018-06-25] MEDS: Senna/Docusate Sodium 8.6/50 MG Tablet PO SCH ×2 (09:36→21:31)
[2018-06-25] MEDS: Chlorhexidine 0.12% Oral Kit 15 ML UDC OROPHARYNG SCH ×2 (10:26→21:31)
[2018-06-25] MEDS: Heparin - SQ 10,000 UNITS/ML Vial SQ SCH ×2 (10:32→21:30)
[2018-06-25] MEDS: Pantoprazole Inj 40 MG Vial IV.PUSH SCH (21:30)
[2018-06-26] MEDS: metroNIDAZOLE 500 MG Tablet PO SCH ×2 (00:05→06:03)
[2018-06-26] MEDS: Morphine Sulfate 100 MG SR Tablet PO SCH ×2 (00:05→09:23)
[2018-06-26] MEDS: Vancomycin Inj 1,000 MG in Sodium Chlor 0.9% Inj 250 ML IV.SIG SCH (00:05)
[2018-06-26] MEDS: Oral Hygiene Kit OROPHARYNG SCH (03:02)
[2018-06-26 04:30] VITALS: RESP 18
[2018-06-26] MEDS: Sod Chloride 0.9% Inj 1,000 ML IV.CONT SCH (04:35)
[2018-06-26] MEDS: Aztreonam Inj 2 GM in Sodium Chloride 0.9% Inj 100 ML IV.SIG SCH (06:03)
[2018-06-26] MEDS: Insulin NovoLIN Regular Correctional Sugar Inj SQ SCH (06:12)
[2018-06-26 07:53] VITALS: BP 139/91; PULSE 102; TEMP 97.9; O2SAT 96
[2018-06-26] MEDS: Chlorhexidine 0.12% Oral Kit 15 ML UDC OROPHARYNG SCH (07:54)
[2018-06-26 09:14] LABS: Anion Gap 7 meq/L (5-15); Blood Urea Nitrogen 20 mg/dL (7-18); Calcium 8.1 mg/dL (8.5-10.1); Carbon Dioxide 32.9 meq/L (21.0-32.0); Chloride 97 meq/L (98-107); Glomerular Filtration Rate Greater Than 89 mL/min (>89); Glucose,Random 135 mg/dL (74-106); Potassium 3.7 meq/L (3.5-5.1); Sodium 137 meq/L (136-145)
[2018-06-26] MEDS: Lisinopril 5 MG Tablet PO SCH (09:23)
[2018-06-26] MEDS: Heparin - SQ 10,000 UNITS/ML Vial SQ SCH (09:24)
[2018-06-26] MEDS: Senna/Docusate Sodium 8.6/50 MG Tablet PO SCH (09:37)
--- NOTE | 2018-06-26 10:46 | P.PNIM ---
Subjective Interval history: Nursing denies any acute changes overnight. Patient self reports having some lower extremity swelling. Physical Exam Vital signs: Vital Signs 06/25/18 13:18 06/25/18 16:16 06/25/18 19:24 Temperature 98.4 F 98.3 F Pulse Rate 96 H 98 H Respiratory Rate 18 20 17 Blood Pressure 148/92 H 135/96 H Pulse Oximetry 97 97 06/25/18 19:35 06/25/18 19:36 06/25/18 20:00 Temperature 97.7 F Pulse Rate 96 H 89 87 Respiratory Rate 20 Blood Pressure 153/96 H Pulse Oximetry 98 06/25/18 22:13 06/26/18 00:00 06/26/18 03:00 Temperature 97.5 F L Pulse Rate 94 H 104 H Respiratory Rate 18 16 Blood Pressure 142/80 H Pulse Oximetry 98 06/26/18 04:00 06/26/18 07:00 06/26/18 07:49 Temperature 97.7 F 97.9 F Pulse Rate 85 116 H 102 H Respiratory Rate 18 18 Blood Pressure 127/89 139/91 H Pulse Oximetry 99 96 Intake & Output 06/25/18 06/26/18 06/26/18 18:59 06:59 18:59 Intake Total 1035 / 1035 1035 / 1035 105 / 105 Output Total 1350 / 1350 1200 / 1200 Balance -315 / -315 -165 / -165 105 / 105 Weight 60.4 kg 59.9 kg Intake: IV 555 / 555 555 / 555 105 / 105 Azactam Inj 2 GM In NS Inj 100 200 / 200 200 / 200 ML @ 200 mls/hr IV.SIG Q8H [facility] Rx#:[id number] Vancomycin Inj 1,000 MG In NS 250 / 250 250 / 250 Inj 250 ML @ 250 mls/hr IV.SIG Q12H [facility] Rx#:[id number] Keppra Inj 500 MG In NS Inj 100 105 / 105 105 / 105 105 / 105 ML @ 400 mls/hr IV.SIG Q12H [facility] Rx#:[id number] Oral 480 / 480 480 / 480 Output: Urine 1350 / 1350 1200 / 1200 Other: # Voids 3 Date of Last Bowel Movement 06/25/18 06/25/18 06/26/18 Narrative: Mild to moderate bilateral lower extremity edema, patient ambulating otherwise without difficulty Clear lungs bilaterally, unlabored breathing Heart sounds regular rate and rhythm Awake and alert - Urinary Catheter Management Coude Cath placed during this visit: yes, but has since been removed by the nurse Reason for continuing: Not indwelling catheter Insertion date: 06/17/18 Insertion time: 16:30 Removal date: 06/18/18 Removal time: 12:00 Straight Cath placed during this visit: yes Reason for continuing: Not indwelling catheter Insertion date: 06/19/18 Insertion time: 12:00 Results - Labs CBC & Chem 7: 06/25/18 07:49 06/26/18 08:10 Laboratory Results - last 24 hr 06/25/18 06/25/18 06/25/18 13:04 16:34 23:23 Sodium Potassium Chloride Carbon Dioxide Anion Gap BUN Creatinine Estimated GFR POC Glucose 148 H 145 H 146 H Random Glucose Calcium 06/26/18 06/26/18 06:12 08:10 Sodium 137 Potassium 3.7 Chloride 97 L Carbon Dioxide 32.9 H Anion Gap 7 BUN 20 H Creatinine 0.66 Estimated GFR Greater than 89 POC Glucose 114 H Random Glucose 135 H Calcium 8.1 L Microbiology 06/18/18 04:20 Bronchial Washings - Bronchial Fungal Smear - Final No fungal elements seen 06/18/18 04:20 Bronchial Washings - Bronchial Fungal Culture - Preliminary No growth in 1 week 06/18/18 04:20 Bronchial Washings - Bronchial Acid Fast Bacilli Smear - Final No acid fast bacilli seen 06/18/18 04:20 Bronchial Washings - Bronchial Mycobacterial Culture - Preliminary No growth in 1 week Assessment and Plan - Plan This patient is a 62-year-old male with a diagnosis of small cell lung cancer with metastasis. The patient initially was admitted with acute encephalopathy and had a seizure at home and was found to have brain metastases. He was subsequently intubated and admitted to the intensive care unit, loaded with antiepileptics. Ultimately extubated and transferred to [facility], on room air now. Neurology, oncology, pulmonology following. Was started on antibiotics for aspiration pneumonia Aspiration pneumonia Continue vancomycin, aztreonam, Flagyl for 2 more days -Upon discharge can likely do well with just Augmentin, pro-calcitonin elevated Seizures Brain metastases secondary to lung cancer -stable now on Keppra, neurology following Continue Decadron in order to minimize brain edema -Oncology following, had radiation simulation yesterday, recommending whole brain radiation -Patient status post bronchoscopy, cytology inconclusive for any malignant cells A. fib acute on chronic Systolic CHF only baby aspirin per oncology given risk of hemorrhagic conversion of metastatic lesions Continue Coreg beta-zarina,, lisinopril -We will diurese with IV Lasix for now, check BMP in a.m. leukocytosis Likely secondary to Neulasta, improving anemia -Holding steady after transfusion yesterday per oncology -Chronic pain Continue current pain medication regimen. Adjust medications as needed. SCDs for DVT prophylaxis, no anticoagulation due to brain metastasis. No driving, operating any heavy machinery or dangerous machinery, swimming alone for at least 6 months of being seizure, spell free. Discharge Planning: Patient is clear for discharge medically speaking however from a rehab standpoint it would be an unsafe discharge. Radiation oncology is set up for him next week. Clear to resume baby aspirin per oncology but to refrain from anticoagulation given his brain metastases.
--- NOTE | 2018-06-26 10:47 | P.DS ---
Date of admission: 06/17/18 19:10 Primary care physician: UNKNOWN Brief History from admission: This is a male. Unknown age. Date of admission 06/17/2018. Past medical history includes brain cancer stage III according to brother, lung cancer presents to [facility] with acute onset of altered mental status. While at home today, this patient suddenly fell face down at home, had seizure episode. When EMS came the treated him with Versed, patient was brought to emergency room unconscious, sedated. His saturation was 88-90 on room air, as per EMS patient brother ask to save his life, at this time patient is full code. IV line placed, patient was intubated, placed on ventilation machine. Pupils are 3 mm equal sluggish. Has abrasion over his forehead and bridge of the nose. There is significant rhonchi bilateral during auscultation. Heart rate is 170, rapid A. fib on EKG. Patient treated with Cardizem. Patient did self extubate was reintubated due to similar findings. CT brain no acute findings. CT C-spine no acute findings. CT abdomen/pelvis revealed ascites. In discussion with brother, patient has stage III of brain cancer/lung cancer but had "improved somewhat over the past month. He wishes him to be full code at the present time. His name is been lost to him at the present time however. DS: Medications - Discharge Medications Prescriptions: amoxicillin-pot clavulanate [Augmentin] 1 tab PO Q12H #10 tab carvedilol [Coreg] 3.125 mg PO BID #60 tab dexamethasone 4 mg PO BID #24 tab furosemide [Lasix] 40 mg PO BID #60 tab levetiracetam [Keppra] 500 mg PO Q12H #60 tab lisinopril 2.5 mg PO DAILY #30 tab potassium chloride 20 meq PO TID #90 tab DS: Summary Hospital Course: The patient initially was admitted with acute encephalopathy was found to have brain metastases on MRI. He was intubated and admitted to the intensive care unit, started on pressors for septic shock, loaded with antiepileptics and started on antibiotics for possible aspiration pneumonia. Ultimately extubated , weaned off of pressors, and transferred to stepdown. Neurology, oncology, pulmonology were involved in his care. Patient remained afebrile otherwise. Was also diuresis for some acute on chronic systolic CHF. Patient was cleared to resume baby aspirin (for his afib), but was to refrain from full dose aspirin or any anticoagulation due to hemorrhage risk from brain metastases per oncology. Patient was ultimately stabilized for discharge with close oncology follow-up emphasized to the patient. Patient was advised to refrain from operating any heavy machinery, driving, swimming, or being present at unprotected heights. - Time Spent with Patient Total time spent providing and/or coordinating discharge services: Less than 30 minutes - Quality: Stroke Last date observed well: 06/22/18 Last time observed well: 15:00 - Quality: VTE Deep Vein Thrombosis/Pulmonary Embolism Present on Admission: No Exam Vital signs: Vital Signs 06/25/18 13:18 06/25/18 16:16 06/25/18 19:24 Temperature 98.4 F 98.3 F Pulse Rate 96 H 98 H Respiratory Rate 18 20 17 Blood Pressure 148/92 H 135/96 H Pulse Oximetry 97 97 06/25/18 19:35 06/25/18 19:36 06/25/18 20:00 Temperature 97.7 F Pulse Rate 96 H 89 87 Respiratory Rate 20 Blood Pressure 153/96 H Pulse Oximetry 98 06/25/18 22:13 06/26/18 00:00 06/26/18 03:00 Temperature 97.5 F L Pulse Rate 94 H 104 H Respiratory Rate 18 16 Blood Pressure 142/80 H Pulse Oximetry 98 06/26/18 04:00 06/26/18 07:00 06/26/18 07:49 Temperature 97.7 F 97.9 F Pulse Rate 85 116 H 102 H Respiratory Rate 18 18 Blood Pressure 127/89 139/91 H Pulse Oximetry 99 96 Intake & Output 06/25/18 06/26/18 06/26/18 18:59 06:59 18:59 Intake Total 1035 / 1035 1035 / 1035 105 / 105 Output Total 1350 / 1350 1200 / 1200 Balance -315 / -315 -165 / -165 105 / 105 Weight 60.4 kg 59.9 kg Intake: IV 555 / 555 555 / 555 105 / 105 Azactam Inj 2 GM In NS Inj 100 200 / 200 200 / 200 ML @ 200 mls/hr IV.SIG Q8H [facility] Rx#:[id number] Vancomycin Inj 1,000 MG In NS 250 / 250 250 / 250 Inj 250 ML @ 250 mls/hr IV.SIG Q12H [facility] Rx#:[id number] Keppra Inj 500 MG In NS Inj 100 105 / 105 105 / 105 105 / 105 ML @ 400 mls/hr IV.SIG Q12H [facility] Rx#:[id number] Oral 480 / 480 480 / 480 Output: Urine 1350 / 1350 1200 / 1200 Other: # Voids 3 Date of Last Bowel Movement 06/25/18 06/25/18 06/26/18 Narrative: Improving, mild lower extremity edema, patient ambulating otherwise without difficulty Clear lungs bilaterally, unlabored breathing Heart sounds regular rate and rhythm Awake and alert Results Procedures completed during hospitalization: Intubation, mechanical ventilation Labs on day of discharge: Labs from last 24 hours 06/26/18 06/26/18 06/25/18 08:10 06:12 23:23 Sodium 137 Potassium 3.7 Chloride 97 L Carbon Dioxide 32.9 H Anion Gap 7 BUN 20 H Creatinine 0.66 Estimated GFR Greater than 89 POC Glucose 114 H 146 H Random Glucose 135 H Calcium 8.1 L 06/25/18 06/25/18 16:34 13:04 Sodium Potassium Chloride Carbon Dioxide Anion Gap BUN Creatinine Estimated GFR POC Glucose 145 H 148 H Random Glucose Calcium Preliminary micro results at discharge 06/18/18 04:20 Fungal Culture - Preliminary Bronchial Washings - Bronchial No growth in 1 week 06/18/18 04:20 Mycobacterial Culture - Preliminary Bronchial Washings - Bronchial No growth in 1 week - Impressions ITS Impressions Head CT 06/17/18 16:19 CONCLUSION: 1. Negative CT Head non contrast other than known sinus surgery. . Cervical Spine CT 06/17/18 16:25 CONCLUSION: No acute cervical spine abnormality is identified. There is multilevel degenerative disc disease. Abdomen/Pelvis CT 06/17/18 19:46 CONCLUSION: 1. Moderate anasarca and mild ascites in the abdomen and pelvis with periportal edema and some pericholecystic fluid. 2. Dense consolidation and mucoid plugging in the right lower lobe with small right effusion. Patchy groundglass airspace disease in both lower lobes as well , probably infectious or post aspiration in nature. 3. Moderate anasarca. Kennedy catheter in bladder. Chest CT 06/17/18 19:46 CONCLUSION: 1. Dense consolidation involving the right lower lobe with obliteration of the right epicardial fat concerning for possible neoplasm in this region. There also is possible adenopathy in the right epicardial space. The patient could be further evaluated with PET FDG study. 2. Alveolar consolidation in the right upper lobe, left upper lobe, and left lower lobe likely related to underlying consolidation/bronchopneumonia. Face CT 06/17/18 19:46 CONCLUSION: 1. No acute facial bone fracture. Mucosal thickening in the paranasal sinuses with previous sinus surgery. Head MRI 06/18/18 00:00 CONCLUSION: 1. Small subcortical metastatic lesions have developed, one of the left frontal lobe and one of the left parietal lobe. 2. 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 3. No bleed or acute/subacute infarct. 4. Chronic pansinusitis. Chest X-Ray 06/19/18 05:00 CONCLUSION: Slightly improving aeration Discharge Plan - Discharge Disposition Patient Disposition: 01 Discharge Home - Discharge Condition Condition: Critical - Discharge Order Discharge Orders: Discharge Order (Routine); Ordered 06/26/18 Ordered By: Blaise Saul - Physicians Team Primary Care Provider: UNKNOWN, Attending Provider: Blaise Saul Other Providers: Sb Herrera MD ; Malik Lund MD ; Benjamin Cm MD ; Marco Thomas MD
--- NOTE | 2018-07-14 17:10 | P.PN ---
Subjective Interval history: awake and alert complains of tiredness no fever compalins of pain both legs states he was supposed to get radiation done Physical Exam Narrative: awake and alert, oriented x 3 anciteric neck supole decreased breath sounds, no rales irregularly irregular rhythm abdomen soft extremities = + trace edema- bilateral calves tender - Urinary Catheter Management Coude Cath placed during this visit: yes, but has since been removed by the nurse Reason for continuing: Not indwelling catheter Insertion date: 06/17/18 Insertion time: 16:30 Removal date: 06/18/18 Removal time: 12:00 Straight Cath placed during this visit: yes Reason for continuing: Not indwelling catheter Insertion date: 06/19/18 Insertion time: 12:00 Results - Labs CBC & Chem 7: 06/25/18 07:49 06/26/18 08:10 Assessment and Plan - Plan Assessment/plan: 1. Pneumonia/COPD Chest x-ray significant for persistent consolidation in the medial right lung base Patient with recent history of aspiration pneumonia Vancomycin/Zosyn Blood cultures pending Patient with leukocytosis however is on systemic steroids Tachycardic and hypotensive 2. Acute renal failure Creatinine 2.41, baseline 0.6 Renal ultrasound pending Nephrology consulted, appreciate assistance- diuretic held for now gentle hydration BMP in am 3. 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 Herrera, appreciate assistance 4. Atrial fibrillation- rate RVR- 120s Cardiomyopathy EF < 25 % Per most recent discharge summary, patient cleared for baby aspirin for anticoagulation only given metastatic disease to the brain Continue aspirin and Coreg consult Cardiology- seen by Dr. Thomas ? Amiodarone BP too low to increase dose coreg or to add CCB started on gentle hydration DC Lasix and ALIS with JAEL d/w Dr. Herr- OK to give x 1 dose of IV digoxin 5. Bilateral calves tender - get doppler US of both legs FEN Regular diet Electrolytes: Monitor and replete as needed SCDs
[2018-07-14] MEDS ORDERED: Digoxin Inj 500 MCG/2 ML Ampul IV.PUSH SCH (17:30)
== END 2018-06-26 16:00 | disposition home or self-care (01) ==
LOC: NEPC 16:00 → EDBD 19:10 → MERGE 19:10 → NEDA 19:10 → HIMC 21:35 → HCIN 06-21 17:30
PROVIDERS: ADMIT Hospitalist; ATTEND Hospitalist

== ENCOUNTER 2018-07-13 18:45 | Inpatient (IN) ==
[2018-07-13] MEDS ORDERED: Morphine Inj 4 MG/ML Vial IV.PUSH ONE (19:36)
[2018-07-13] MEDS ORDERED: Sodium Chlor 0.9% Inj 500 ML IV.SIG SCH (20:00)
[2018-07-13 20:38] LABS: Baso % (Auto) 0.3 % (0.0-2.0); Eos % (Auto) 0.1 % (0.0-4.0); Hematocrit 31.4 % (39.0-51.0); Hemoglobin 10.4 gm/dL (13.0-17.0); Lymph # (Auto) 0.9 th/mm3 (1.0-4.8); Lymph % (Auto) 6.3 % (9.0-44.0); Mean Corpuscular Hemoglobin 30.7 pg (27.0-34.0); Mean Corpuscular Volume 93.1 fL (80.0-100.0); Mono # (Auto) 1.2 th/mm3 (0.0-0.9); Mono % (Auto) 8.9 % (0.0-8.0); Neut # (Auto) 11.7 th/mm3 (1.8-7.7); Neut % (Auto) 84.4 % (16.0-70.0); Platelet Count 190 th/mm3 (150-450); Red Blood Count 3.38 mil/mm3 (4.50-5.90); Red Cell Distribution Width 23.9 % (11.6-17.2); White Blood Count 13.8 th/mm3 (4.0-11.0)
[2018-07-13 20:59] LABS: Albumin 2.6 g/dL (3.4-5.0); Anion Gap 8 meq/L (5-15); Aspartate Aminotransferase 35 U/L (15-37); Blood Urea Nitrogen 64 mg/dL (7-18); Calcium 8.3 mg/dL (8.5-10.1); Carbon Dioxide 28.9 meq/L (21.0-32.0); Chloride 93 meq/L (98-107); Glomerular Filtration Rate 27 mL/min (>89); Glucose,Random 91 mg/dL (74-106); Magnesium 2.4 mg/dL (1.5-2.5); Potassium 3.9 meq/L (3.5-5.1); Sodium 130 meq/L (136-145)
[2018-07-13 21:01] LABS: Alanine Aminotransferase 38 U/L (12-78)
[2018-07-13 21:02] LABS: Alkaline Phosphatase 85 U/L (45-117); Total Protein 6.1 g/dL (6.4-8.2)
--- NOTE | 2018-07-13 21:13 | XR ---
EXAM DATE: 07/13/2018 9:10 PM EST AGE/SEX: 62 years / Male INDICATIONS: Fever. Shortness of breath. Body aches. CLINICAL DATA: This is the patient's initial encounter. Patient reports that signs and symptoms have been present for 3 days and indicates a pain score of 9/10. MEDICAL/SURGICAL HISTORY: . Carcinoma, lung. Brain cancer. . Port placement. COMPARISON: [facility] [place]ST 1V SINGLE AP, 06/19/2018. . FINDINGS: Right chest port is stable in good position. Persistent consolidative change in the medial right lung base is stable. Left lung remains clear. Cardiac contours are unchanged. CONCLUSION: Persistent consolidation in the medial right lung base. Electronically signed by: Dheeraj Roth MD 07/13/2018 9:11 PM EST
[2018-07-13 21:31] LABS: Bilirubin,Urine Negative (Negative); Clarity,Urine Hazy (Clear); Color,Urine Yellow (Yellw/Straw); Glucose,Urine (UA) 50 mg/dL (Negative); Hyaline Casts,Urine 57 /lpf (0-3); Leukocyte Esterase,Urine Negative (Negative); Mucus,Urine Few /lpf (Occasional); Nitrite,Urine Negative (Negative); Specific Gravity,Urine 1.009 (1.002-1.035)
--- NOTE | 2018-07-13 21:31 | ED ---
HPI General Chief complaint: Weakness Stated complaint: SOB Time Seen by Provider: 07/13/18 19:06 History of Present Illness HPI narrative: Patient is a 62-year-old male in states has been gradually feeling more more week this time is gone by. He states that he felt too weak to go to chemotherapy and radiation today. Being that he felt this way he decided to come here to be seen. He states he just aches all over and generally feels poor of health. No fevers no acute cough or congestion. States he has not been keeping well hydrated and is starting to become difficult for him to even swallow. He has been followed by Dr. Sb Herrera. Symptoms moderate, associated signs symptoms context as above, rapidly worsening. Related Data Home Medications Medication Instructions Recorded Confirmed docusate sodium 100 mg PO BID 03/03/18 04/16/18 morphine [MS Contin] 100 mg PO Q8H 03/03/18 04/16/18 oxycodone 30 mg PO Q4-6H PRN MDD 2.5 tablets 03/03/18 04/16/18 Previous Rx's Medication Instructions Recorded amiodarone 400 mg PO DAILY #60 tab 03/15/18 aspirin 81 mg PO DAILY #30 tab 03/15/18 clonidine HCl [Catapres] 0.1 mg PO Q12HR #60 tab 03/15/18 ipratropium-albuterol 1 amp NEB Q2HR NEB PRN #180 amp 03/15/18 lactulose 30 ml PO DAILY PRN #900 ml 03/15/18 sennosides-docusate sodium [Senna 1 tab PO BID #120 tab 03/15/18 Plus] carvedilol [Coreg] 3.125 mg PO BID #60 tab 06/24/18 dexamethasone 4 mg PO BID #24 tab 06/24/18 levetiracetam [Keppra] 500 mg PO Q12H #60 tab 06/24/18 lisinopril 2.5 mg PO DAILY #30 tab 06/24/18 amoxicillin-pot clavulanate 1 tab PO Q12H #10 tab 06/25/18 [Augmentin] furosemide [Lasix] 40 mg PO BID #60 tab 06/26/18 potassium chloride 20 meq PO TID #90 tab 06/26/18 Allergies Allergy/AdvReac Type Severity Reaction Status Date / Time No Known Allergies Allergy Verified 07/13/18 18:57 Review of Systems ROS: all other systems reviewed are negative [facility] Social History Social History Substance History: No History of Abuse Second Hand Smoke Exposure: No Smoking Status: Former smoker Tobacco Type: Cigarettes How Often Do You Have a Drink Containing Alcohol: Never Recent Travel in [facility] within the Last 8 Weeks: No Recent Out of Country Travel within the Last 8 Weeks: No Immunization History Tetanus Immunization: >5 Years Exam Narrative Exam Narrative: GENERAL: Well-developed cachectic 62-year-old male. Appears quite pale. SKIN: Focused skin assessment warm/dry. Decreased skin turgor. HEAD: Atraumatic. Normocephalic. EYES: Pupils equal and round. No scleral icterus. No injection or drainage. ENT: No nasal bleeding or discharge. Mucous membranes pink and moist. NECK: Trachea midline. No JVD. CARDIOVASCULAR: Regular rate and rhythm. No murmur appreciated. RESPIRATORY: No accessory muscle use. Clear to auscultation. Breath sounds equal bilaterally. GASTROINTESTINAL: Abdomen soft, non-tender, nondistended. Hepatic and splenic margins not palpable. MUSCULOSKELETAL: No obvious deformities. No clubbing. No cyanosis. No edema. NEUROLOGICAL: Awake and alert. No obvious cranial nerve deficits. Motor grossly within normal limits. Normal speech. PSYCHIATRIC: Appropriate mood and affect; insight and judgment normal. Course Initial Documented Vital Signs Temperature 98.0 F 07/13/18 18:52 Pulse Rate 110 H 07/13/18 18:52 Respiratory Rate 20 07/13/18 18:52 Blood Pressure 92/51 L 07/13/18 18:52 Pulse Oximetry 95 07/13/18 18:52 Last Documented Vital Signs Temperature 98.0 F 07/13/18 18:52 Pulse Rate 107 H 07/13/18 21:18 Respiratory Rate 18 07/13/18 21:18 Blood Pressure 78/53 L 07/13/18 21:18 Pulse Oximetry 99 07/13/18 21:18 Medical Decision Making Lab Data Result diagrams: 07/13/18 20:10 07/13/18 20:10 Lab Results 07/13/18 07/13/18 07/13/18 Range/Units 20:10 20:10 20:10 WBC 13.8 H (4.0-11.0) th/mm3 RBC 3.38 L (4.50-5.90) mil/mm3 Hgb 10.4 L (13.0-17.0) gm/dL Hct 31.4 L (39.0-51.0) % MCV 93.1 (80.0-100.0) fL MCH 30.7 (27.0-34.0) pg MCHC 33.0 (32.0-36.0) % RDW 23.9 H (11.6-17.2) % Plt Count 190 D (150-450) th/mm3 MPV 8.0 (7.0-11.0) fL Neut % (Auto) 84.4 H (16.0-70.0) % Lymph % (Auto) 6.3 L (9.0-44.0) % [place] % (Auto) 8.9 H (0.0-8.0) % Eos % (Auto) 0.1 (0.0-4.0) % Baso % (Auto) 0.3 (0.0-2.0) % Neut # (Auto) 11.7 H (1.8-7.7) th/mm3 Lymph # (Auto) 0.9 L (1.0-4.8) th/mm3 [place] # (Auto) 1.2 H (0.0-0.9) th/mm3 Eos # (Auto) 0.0 (0.0-0.4) th/mm3 Baso # (Auto) 0.0 (0.0-0.2) th/mm3 WBC Differential . Differential Comment Auto diff final Sodium 130 L (136-145) meq/L Potassium 3.9 (3.5-5.1) meq/L Chloride 93 L (98-107) meq/L Carbon Dioxide 28.9 (21.0-32.0) meq/L Anion Gap 8 (5-15) meq/L BUN 64 H (7-18) mg/dL Creatinine 2.41 H (0.60-1.30) mg/dL Estimated GFR 27 L (>89) mL/min Random Glucose 91 (74-106) mg/dL Calcium 8.3 L (8.5-10.1) mg/dL Magnesium 2.4 (1.5-2.5) mg/dL Total Bilirubin 0.4 (0.2-1.0) mg/dL AST 35 (15-37) U/L ALT 38 (12-78) U/L Alkaline Phosphatase 85 (45-117) U/L Total Protein 6.1 L (6.4-8.2) g/dL Albumin 2.6 L (3.4-5.0) g/dL Blood Type A Positive Antibody Screen Negative Imaging Data Radiologist's impression: Chest X-Ray 07/13/18 20:49 CONCLUSION: Persistent consolidation in the medial right lung base. Discharge Plan Physicians Team ED Provider: Tray Baldwin Primary Care Provider: Sb Herrera Rxs /Orders / Referrals /Forms Prescriptions: No Action oxycodone 30 mg Tablet 30 mg PO Q4-6H MDD 2.5 tablets PRN (Reason: Chronic Pain) RF: 0 morphine [MS Contin] 100 mg Tablet Extended Release 100 mg PO Q8H RF: 0 docusate sodium 100 mg Tablet 100 mg PO BID RF: 0 clonidine HCl [Catapres] 0.1 mg Tablet 0.1 mg PO Q12HR Qty: 60 RF: 0 ipratropium-albuterol 0.5 mg-3 mg(2.5 mg base)/3 mL Solution For Nebulization 1 amp NEB Q2HR NEB PRN (Reason: Wheezing) Qty: 180 RF: 0 amiodarone 200 mg Tablet 400 mg PO DAILY Qty: 60 RF: 0 sennosides-docusate sodium [Senna Plus] 8.6-50 mg Tablet 1 tab PO BID Qty: 120 RF: 0 aspirin 81 mg Tablet,Delayed Release (Dr/Ec) 81 mg PO DAILY Qty: 30 RF: 0 lactulose 20 gram/30 mL Solution 30 ml PO DAILY PRN (Reason: Severe Consitipation) Qty: 900 RF: 0 carvedilol [Coreg] 3.125 mg Tablet 3.125 mg PO BID Qty: 60 RF: 0 dexamethasone 4 mg Tablet 4 mg PO BID Qty: 24 RF: 0 levetiracetam [Keppra] 500 mg Tablet 500 mg PO Q12H Qty: 60 RF: 0 lisinopril 2.5 mg Tablet 2.5 mg PO DAILY Qty: 30 RF: 0 amoxicillin-pot clavulanate [Augmentin] 500-125 mg Tablet 1 tab PO Q12H Qty: 10 RF: 0 furosemide [Lasix] 40 mg Tablet 40 mg PO BID Qty: 60 RF: 0 potassium chloride 20 mEq Tablet Extended Release 20 meq PO TID Qty: 90 RF: 0 Status ED Status: Pending Admission
[2018-07-13] MEDS ORDERED: Piperacil/Tazo 4.5 GM Premix 4.5 GM/100 ML BAG IV.SIG ONE (21:39)
[2018-07-13] MEDS ORDERED: Sod Chloride 0.9% Inj 1,000 ML IV.SIG SCH (21:45)
[2018-07-13] MEDS ORDERED: Vancomycin Inj 1,000 MG in Sodium Chlor 0.9% Inj 250 ML IV.SIG SCH (22:00)
[2018-07-14] MEDS ORDERED: Prochlorperazine 25 MG Supp RECTAL PRN (02:44)
[2018-07-14] MEDS ORDERED: Acetaminophen 325 MG Tablet PO PRN (02:44)
[2018-07-14] MEDS ORDERED: Bisacodyl 10 MG Supp RECTAL PRN (02:44)
--- NOTE | 2018-07-14 02:48 | P.HP ---
History of Present Illness Service: [facility] Primary Care Physician: Sb Herrera MD History of Present Illness: 62-year-old male with a past medical history significant for metastatic small cell lung carcinoma with brain metastases and subsequent seizure disorder, atrial fibrillation, recent hospitalization requiring intubation for aspiration pneumonia, COPD and CHF (EF less than 25%) presents to the emergency department for the evaluation of fatigue and weakness. The patient reports he was too weak to go to chemo/radiation today. He reports that he has pain all over his whole body. He denies any fevers or chills. No chest pain or shortness of breath. No abdominal pain. No nausea/vomiting/diarrhea. No focal neurologic deficits. Endorses anorexia for the past week and reports his liquid intake has been markedly decreased. Inpatient Certification: I certify that the inpatient services were ordered in accordance with Medicare regulations governing the order. This includes certification that hospital inpatient services are reasonable and necessary and in the case of services not specified as inpatient-only under 42 CFR 419.22(n), that they are appropriately provided as inpatient services in accordance to with the 2-midnight benchmark under 43 CFR 412.3(e) Review of Systems All other systems reviewed negative except as stated in HPI PMFSH - History History Provided By: Patient - Medical History Medical History: Medical History (Last Reviewed 07/14/18 @ 02:39 by Bella Ferrell MD) Edema (Chronic) Back pain (Chronic) Brain cancer COPD (chronic obstructive pulmonary disease) History of chemotherapy History of osteomyelitis Lung cancer Lung cancer Neck pain Port-A-Cath in place - Surgical History Surgical History: Surgical History (Last Reviewed 07/14/18 @ 02:39 by Bella Ferrell MD) H/O hernia repair (Resolved) - Family History Family History: Family History (This Medical Record has been edited. Action required.) Grandparent Cancer Father H/O ETOH abuse Mother Alzheimers disease - Tobacco History Second Hand Smoke Exposure: No Smoking Status: Former smoker Tobacco Type: Cigarettes - Alcohol History How Often Do You Have a Drink Containing Alcohol: Never - Substance Use History Substance History: No History of Abuse - Travel History Recent Travel in the [place] Within the Last 8 Weeks: No Recent Travel Out of the Country Within the Last 8 Weeks: No - Immunization History Tetanus Immunization: >5 Years Medications and Allergies Active Medications: Active Medications Vancomycin HCl 1,000 mg/ (Sodium Chloride) 250 mls @ 250 mls/hr IV.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 [facility] Last Infusion: 07/13/18 23:41 Dose: Infused Sodium Chloride (Ns Flush) 2 ml IV.FLUSH PRN PRN PRN Reason: FLUSH AFTER USING IV ACCESS Allergies Allergy/AdvReac Type Severity Reaction Status Date / Time No Known Allergies Allergy Verified 07/13/18 18:57 Home Medications Medication Instructions Recorded Confirmed Type docusate sodium 100 mg PO BID 03/03/18 04/16/18 History morphine [MS Contin] 100 mg PO Q8H 03/03/18 04/16/18 History oxycodone 30 mg PO Q4-6H PRN MDD 2.5 tablets 03/03/18 04/16/18 History Exam Vital signs: Vital Signs 07/13/18 18:52 07/13/18 19:30 07/13/18 20:00 Temperature 98.0 F Pulse Rate 110 H 108 H Respiratory Rate 20 18 Blood Pressure 92/51 L 70/55 L Pulse Oximetry 95 98 98 07/13/18 20:30 07/13/18 21:18 07/13/18 21:54 Temperature Pulse Rate 107 H 100 H Respiratory Rate 18 18 18 Blood Pressure 78/53 L 83/52 L Pulse Oximetry 99 100 07/13/18 22:30 07/13/18 23:28 Temperature 97.9 F Pulse Rate 86 94 H Respiratory Rate 18 18 Blood Pressure 90/51 L 90/54 L Pulse Oximetry 99 99 Intake & Output 07/13/18 07/13/18 07/14/18 06:59 18:59 06:59 Intake Total 1849 Balance 1849 Weight 50.349 kg Intake: IV 1849 Zosyn 4.5 GM Premix 4.5 gm In 100 / 100 100 ml @ 200 mls/hr IV.SIG ONCE ONE Rx#:[id number] NS Inj 1,000 ML @ 1000 mls/hr 1000 / 1000 IV.SIG BOLUS [facility] Rx#:[id number] NS Inj 500 ML @ 1000 mls/hr IV. 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 Head: Normocephalic. Atraumatic. EENT: Pupils equal round and reactive to light. Nose without drainage. Airway intact. Throat without injection. Cardiovascular: Regular rate irregularly irregular rhythm. No murmurs, rubs or gallops. Respiratory: Lungs clear to auscultation bilaterally. No wheezes or rhonchi. Abdomen: Soft, nontender, nondistended. No peritoneal signs. Musculoskeletal: No gross deformities. No edema. Skin: No obvious rashes or erythema. Neuro: Sensory and motor grossly intact. Cranial nerves II through XII grossly intact. Results - Labs CBC & Chem 7: 07/13/18 20:10 07/13/18 20:10 Labs: Laboratory Results - last 24 hr 07/13/18 07/13/18 07/13/18 20:10 20:10 20:10 WBC 13.8 H RBC 3.38 L Hgb 10.4 L Hct 31.4 L MCV 93.1 MCH 30.7 MCHC 33.0 RDW 23.9 H Plt Count 190 D MPV 8.0 Neut % (Auto) 84.4 H Lymph % (Auto) 6.3 L [place] % (Auto) 8.9 H Eos % (Auto) 0.1 Baso % (Auto) 0.3 Neut # (Auto) 11.7 H Lymph # (Auto) 0.9 L [place] # (Auto) 1.2 H Eos # (Auto) 0.0 Baso # (Auto) 0.0 WBC Differential . Differential Comment Auto diff final Sodium 130 L Potassium 3.9 Chloride 93 L Carbon Dioxide 28.9 Anion Gap 8 BUN 64 H Creatinine 2.41 H Estimated GFR 27 L Random Glucose 91 Lactic Acid Calcium 8.3 L Magnesium 2.4 Total Bilirubin 0.4 AST 35 ALT 38 Alkaline Phosphatase 85 Total Protein 6.1 L Albumin 2.6 L Urine Color Urine Clarity Urine pH Ur Specific [place] Urine Protein Urine Glucose (UA) Urine Ketones Urine Occult Blood Urine Nitrate Urine Bilirubin Urine Urobilinogen Ur Leukocyte Esterase Urine RBC Urine WBC Hyaline Casts Urine Mucus Micro UA Comment Ur Microscopic Review Urine Culture Comments Blood Type A Positive Antibody Screen Negative 07/13/18 07/13/18 21:13 21:52 WBC RBC Hgb Hct MCV MCH MCHC RDW Plt Count MPV Neut % (Auto) Lymph % (Auto) [place] % (Auto) Eos % (Auto) Baso % (Auto) Neut # (Auto) Lymph # (Auto) [place] # (Auto) Eos # (Auto) Baso # (Auto) WBC Differential Differential Comment Sodium Potassium Chloride Carbon Dioxide Anion Gap BUN Creatinine Estimated GFR Random Glucose Lactic Acid 1.3 Calcium Magnesium Total Bilirubin AST ALT Alkaline Phosphatase Total Protein Albumin Urine Color Yellow Urine Clarity Hazy H Urine pH 6.0 Ur Specific [place] 1.009 Urine Protein 30 H Urine Glucose (UA) 50 Urine Ketones Negative Urine Occult Blood Small H Urine Nitrate Negative Urine Bilirubin Negative Urine Urobilinogen Less than 2 Ur Leukocyte Esterase Negative Urine RBC Less than 1 Urine WBC Less than 1 Hyaline Casts 57 Urine Mucus Few H Micro UA Comment Culture not ind Ur Microscopic Review Not Reportable Urine Culture Comments Culture not ind Blood Type Antibody Screen - Imaging Impressions Chest X-Ray 07/13/18 20:49 CONCLUSION: Persistent consolidation in the medial right lung base. Caprini VTE Risk Assessment Caprini VTE Risk Assessment: Moderate/High Risk (score >= 2) Caprini Risk Assessment Model: Point Value = 1 Point Value = 2 Point Value = 3 Point Value = 5 Age 41-60 Minor surgery BMI > 25 kg/m2 Swollen legs Varicose veins or History of unexplained or recurrent spontaneous Oral contraceptives or hormone replacement Sepsis (< 1 month) Serious lung disease, including pneumonia (< 1 month) Abnormal pulmonary function Acute myocardial infarction Congestive heart failure (< 1 month) History of inflammatory bowel disease Medical patient at bed rest Age 61-74 Arthroscopic surgery Major open surgery (> 45 min) Laparoscopic surgery (> 45 min) Malignancy Confined to bed (> 72 hours) Immobilizing plaster cast Central venous access Age >= 75 History of VTE Family history of VTE Factor V Leiden Prothrombin [id number] Lupus anticoagulant Anticardiolipin antibodies Elevated serum homocysteine Heparin-induced thrombocytopenia Other congenital or acquired thrombophilia Stroke (< 1 month) Elective arthroplasty Hip, pelvis, or leg fracture Acute spinal cord injury (< 1 month) Prophylaxis Regimen: Total Risk Factor Score Risk Level Prophylaxis Regimen 0-1 Low Early ambulation 2 Moderate Order ONE of the following: *Sequential Compression Device (SCD) *Heparin 5000 units SQ BID 3-4 Higher Order ONE of the following medications: *Heparin 5000 units SQ TID *Enoxaparin/Lovenox 40 mg SQ daily (WT < 150 kg, CrCl > 30 mL/min) *Enoxaparin/Lovenox 30 mg SQ daily (WT < 150 kg, CrCl > 10-29 mL/min) *Enoxaparin/Lovenox 30 mg SQ BID (WT < 150 kg, CrCl > 30 mL/min) AND/OR *Sequential Compression Device (SCD) 5 or more Highest Order ONE of the following medications: *Heparin 5000 units SQ TID (Preferred with Epidurals) *Enoxaparin/Lovenox 40 mg SQ daily (WT < 150 kg, CrCl > 30 mL/min) *Enoxaparin/Lovenox 30 mg SQ daily (WT < 150 kg, CrCl > 10-29 mL/min) *Enoxaparin/Lovenox 30 mg SQ BID (WT < 150 kg, CrCl > 30 mL/min) AND *Sequential Compression Device (SCD) Assessment and Plan - Plan Assessment/plan: 1. Pneumonia/COPD Chest x-ray significant for persistent consolidation in the medial right lung base Patient with recent history of aspiration pneumonia Vancomycin/Zosyn Blood cultures pending Patient with leukocytosis however is on systemic steroids Tachycardic and hypotensive 2. Acute renal failure Creatinine 2.41, baseline 0.6 Renal ultrasound pending Nephrology consulted, appreciate assistance 3. 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 Herrera, appreciate assistance 4. Atrial fibrillation Per most recent discharge summary, patient cleared for baby aspirin for anticoagulation only given metastatic disease to the brain Continue aspirin and Coreg Patient evaluated by cardiology during previous hospitalization 5. CHF Most recent echo showed an EF of 25% Continue home Lasix FEN Regular diet Electrolytes: Monitor and replete as needed SCDs
--- NOTE | 2018-07-14 08:23 | US ---
EXAM DATE: 07/14/2018 8:20 AM EST AGE/SEX: 62 years / Male INDICATIONS: Increased BUN/Creatinine. CLINICAL DATA: This is the patient's subsequent encounter. Patient reports that signs and symptoms h ave been present for 1 day and indicates a pain score of 0/10. MEDICAL/SURGICAL HISTORY: Carcinoma, lung. Brain Mets. COPD. Chemotherapy. Osteomyelitis. Afib. CHF. Inguinal hernia repair. Port placement. [place] [facility] [place]17[place]. . MEASUREMENTS: Right Kidney:__10.8 x 4.5 x 4.1 cm Left Kidney:__9.5 x 4.6 x 5.4 cm FINDINGS: Right Kidney: Normal echotexture and cortical thickness. No mass or hydronephrosis. Left Kidney: Normal echotexture and cortical thickness. No mass or hydronephrosis. Bladder: Decompressed. Not well evaluated. Other: None. CONCLUSION: Negative renal sonogram. Electronically signed by: Dheeraj Roth MD 07/14/2018 8:22 AM EST
[2018-07-14] MEDS ORDERED: Furosemide 40 MG Tablet PO SCH (09:00)
--- NOTE | 2018-07-14 09:46 | CT ---
EXAM DATE: 07/14/2018 9:38 AM EST AGE/SEX: 62 years / Male INDICATIONS: Fatigue and weakness. Lung cancer. CLINICAL DATA: This is the patient's initial encounter. Patient reports that signs and symptoms have been present for 1 day and indicates a pain score of 3/10. MEDICAL/SURGICAL HISTORY: Chronic obstructive pulmonary disease. Carcinoma, lung. Mets. Inguinal hernia repair. RADIATION DOSE: 7.78 CTDI (mGy) [place] [facility] [place]. . TECHNIQUE: Multiple contiguous axial images were obtained through the chest without contrast. Image s were obtained in suspended respiration using multiple row detector helical technique. Using automa asmita exposure control and adjustment of the mA and/or kV according to patient size, radiation dose was kept as low as reasonably achievable to obtain optimal diagnostic quality images. DICOM format imag e data is available electronically for review and comparison. FINDINGS: The examination demonstrates a large, partially calcified mass in the right lower lobe which extends into the subcarinal farzana chain. This is suspicious for malignancy. The appearance of this is similar to the prior study of 06/17/2019. There is minimal right-sided effusion. The previously seen infiltra te at the left base has significantly improved when compared to prior examination. The overall appear ance of the airspace disease in the right middle and right upper lobe has improved significantly as w ell. The soft tissue windowed images demonstrate extension of the patient's mass into the subcarinal regio n. No significant hilar adenopathy is seen. No axillary adenopathy is identified. There is atheroscle rotic plaquing in the coronary arteries. The visualized bony structures demonstrate degenerative changes but are otherwise intact. CONCLUSION: 1. Large mass of the right lung base with extension into the subcarinal region. This is stable salima red to previous exam. 2. Significant improvement in the appearance of the airspace disease involving the right upper and m iddle lobe as well as the left lower lobe. Electronically signed by: Mushtaq Rose MD 07/14/2018 9:45 AM EST
--- NOTE | 2018-07-14 09:51 | MB ---
cc: Sb Herrera MD DATE: 07/14/2018 PHYSICIAN: Dr. Ferrell. REASON FOR CONSULTATION: Oncology consult to render opinion regarding a patient with a metastatic small cell lung carcinoma, admitted with weakness. HISTORY OF PRESENT ILLNESS: The patient is a 62-year-old male with history of metastatic small cell lung carcinoma, presented to the emergency room with complaint of increased weakness and fatigue. The patient is a poor historian and not able to give specific detail. His history is rather conflicting at times. He also has been noncompliant with his Followup Oncology clinic for treatment. He was admitted to the hospital earlier this month with respiratory failure due to aspiration pneumonia. He was in the ICU and on ventilator for a short time. He received cycle 4, chemotherapy from 06/15/2018-06/17/2018. He was supposed to be seeing Dr. Lund for whole brain irradiation. However, he could not really tell me if he completed radiation. He was supposed to come to oncology clinic yesterday to start another cycle of chemotherapy, but he did not show up. He stated he has been having increased weakness, fatigue for about 2 days. He said he was too weak to come to the clinic. This morning when I was seeing him, he keeps saying that he is hungry and wants something to eat. He is not really interested in talking about other things. He has pain all over, which is chronic. He denies any fever or chills. He has no nausea or vomiting. He did say that he has shortness of breath and coughing up "pneumonia stuff." He denies abdominal pain. Denies any change in urine habit. He denies any headache. PAST MEDICAL HISTORY: 1. Metastatic small cell lung carcinoma. 2. Brain metastasis. 3. Seizure disorder. 4. Chronic atrial fibrillation. 5. Aspiration pneumonia. 6. Chronic obstructive pulmonary disease. 7. Congestive heart failure with EF of less than 25%. 7. Chronic pain. PAST SURGICAL HISTORY: Port placement, hernia repair, lung biopsy. FAMILY HISTORY: Denies any cancer in the family. SOCIAL HISTORY: He quit smoking. He had [id number] smoking history. He drinks occasionally, but denies drinking alcohol recently. REVIEW OF SYSTEMS: CONSTITUTIONAL: As above. EYES: Negative. ENT: Negative. CARDIOVASCULAR: Denies any chest pressure or palpitation. RESPIRATORY: As above. GASTROINTESTINAL: Negative. GENITOURINARY: Negative. MUSCULOSKELETAL: As above. HEMATOLOGIC: Negative. ENDOCRINE: Negative. HEMATOLOGIC: Negative. PSYCHIATRIC: Negative. NEUROLOGIC: Denies any headache, focal numbness or weakness. PHYSICAL EXAMINATION: VITAL SIGNS: Temperature 97.9, blood pressure 97/58, O2 saturation 99% on room air. GENERAL: He is sleeping, but easily arousable, complaining of being hungry. HEENT: Atraumatic, normocephalic. Pupils are equal, round, reactive to light. Extraocular muscles are intact. No scleral icterus. Oropharynx dry. Mucosa no lesion. NECK: No thyromegaly. No palpable mass. LYMPHATIC: No palpable cervical, clavicular, axillary or inguinal. CARDIOVASCULAR: Regular S1, S2. No murmur. LUNGS: Distant breath sounds, decreased breath sounds bilaterally. ABDOMEN: Soft, nontender. Cannot palpate liver or spleen. EXTREMITIES: No cyanosis. No significant edema. No calf tenderness. SKIN: No rash or petechiae. Decreased skin turgor. NEUROLOGIC: Nonfocal. LABORATORY DATA: WBC 13.8, hemoglobin 10.4, platelet count 190. Creatinine of 2.41. ASSESSMENT AND PLAN: 1. Metastatic small cell lung carcinoma. He presented with shortness of breath and constitutional symptoms. He was found to have a large right lower lobe mass obstructing the bronchus causing partial collapse of right lung. There were also multiple pleural and subpleural nodules in the right lung. He also found to have a brain metastasis. Bronchoscopy and biopsy of right lower lobe lung mass showed small cell lung carcinoma. He started carboplatin, etoposide 02/2018. He just completed fourth cycle on 06/17/2018. He was supposed to come to clinic yesterday for another cycle of chemotherapy, but he did not show up. We have ordered a CT scan, but again he did not get the CT scan done. During his last admission, a CT of the chest still showed right lung consolidation. Clinically, he has shortness of breath and cough. A chest x-ray showed persistent consolidation in the medial right lung. I am going to have him get CT of the chest for further evaluation. 2. Brain metastasis. Initially, he had a small lesion and received stereotactic radiation in April. Recent MRI showed 2 other lesions, one in the frontal lobe and one in the left parietal lobe. He is supposed to see Dr. Sanez for whole brain irradiation, but is unclear if he actually completed the radiation. He is still on Decadron. He has no new neurologic symptoms at this time. 3. Seizure disorder due to brain metastasis which has not recurred. 4. Chronic atrial fibrillation. 5. Recent aspiration pneumonia. 6. Chronic obstructive pulmonary disease. 7. Congestive heart failure with ejection fraction less than 25%. 8. Chronic pain. RECOMMENDATIONS: Arrange for CT of the chest. The patient has been noncompliant with followup. He does not seem motivated to continue with the treatment. We will get Palliative Care Medicine to see him and clarify goals of care. Continue antibiotics, supportive care per primary team. Thank you Dr. Ferrell for asking me to see this patient. MD DANI Orosco/cheryl/malgorzata , 07:58 AM , 08:13 AM
[2018-07-14] MEDS: levETIRAcetam 500 MG Tablet PO SCH ×2 (10:29→21:46)
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
[2018-07-14] MEDS ORDERED: Sod Chloride 0.9% Inj 1,000 ML OTHER PRN (12:51)
--- NOTE | 2018-07-14 12:59 | P.CONNP ---
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 He has been admitted with complaints of weakness. Initially thought to have pneumonia. His baseline renal function is normal. Admitted recently for seizure. Has brain mets. His creatinine is 2.4. He does not have a Kennedy catheter. Patient is non oliguric. He denies use of NSAIDs. Review of Systems Constitutional: Reports anorexia, Reports weakness, Reports weight loss Ears, Nose, Mouth, and Throat: Denies bleeding gums, Denies change in voice, Denies sore throat Cardiovascular: Reports shortness of breath, Denies chest pain at rest Respiratory: Reports cough, Reports shortness of breath with activity Musculoskeletal: Reports muscle weakness, Denies stiffness Skin/Breast: Denies bleeding lesions PMFSH - History History Provided By: Patient - Medical History Medical History: Medical History (Last Reviewed 07/14/18 @ 10:11 by AWAIS Gibbs) Brain cancer COPD (chronic obstructive pulmonary disease) History of chemotherapy History of osteomyelitis Lung cancer Neck pain Edema - Surgical History Surgical History: Surgical History (Last Updated 07/14/18 @ 10:11 by AWAIS Gibbs) Port-A-Cath in place H/O hernia repair - Family History Family History: Family History (This Medical Record has been edited. Action required.) Grandparent Cancer Father H/O ETOH abuse Mother Alzheimers disease - Tobacco History Second Hand Smoke Exposure: No Smoking Status: Former smoker Tobacco Type: Cigarettes Number of Pack Years (if former smoker): 25 - Alcohol History How Often Do You Have a Drink Containing Alcohol: Never - Substance Use History Substance History: No History of Abuse - Travel History Recent Travel in the [place] Within the Last 8 Weeks: No Recent Travel Out of the Country Within the Last 8 Weeks: No - Immunization History Tetanus Immunization: >5 Years Medications and Allergies Active Medications: Active Medications Acetaminophen (Tylenol) 650 mg PO Q4H PRN PRN Reason: Temp > 100.4 Aspirin (Ecotrin) 81 mg PO DAILY SUSIE Last Admin: 07/14/18 10:29 Dose: 81 mg Bisacodyl (Dulcolax Supp) 10 mg RECTAL DAILY PRN PRN Reason: SEVERE CONSITIPATION Carvedilol (Coreg) 3.125 mg PO BID [facility] Last Admin: 07/14/18 10:31 Dose: Not Given Dexamethasone (Decadron) 4 mg PO BID [facility] Last Admin: 07/14/18 10:28 Dose: 4 mg Vancomycin HCl 1,000 mg/ (Sodium Chloride) 250 mls @ 250 mls/hr 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 [facility] Last Infusion: 07/13/18 23:41 Dose: Infused Levetiracetam (Keppra) 500 mg PO BID [facility] Last Admin: 07/14/18 10:29 Dose: 500 mg Morphine Sulfate (Oramorph Sr) 100 mg PO Q8HR [facility] Oxycodone HCl (Roxicodone) 30 mg PO Q4H PRN PRN Reason: BREAKTHROUGH PAIN Last Admin: 07/14/18 11:14 Dose: 30 mg Prochlorperazine (Compazine Supp) 25 mg RECTAL Q12HR PRN PRN Reason: NAUSEA OR VOMITING Sennosides (Senokot) 17.2 mg PO Q12H PRN PRN Reason: Moderate Constipation Sodium Chloride (Ns Flush) 2 ml IV.FLUSH BID [facility] Last Admin: 07/14/18 10:30 Dose: 2 ml Sodium Chloride (Ns Flush) 2 ml IV.FLUSH PRN PRN PRN Reason: FLUSH AFTER USING IV ACCESS Allergies Allergy/AdvReac Type Severity Reaction Status Date / Time No Known Allergies Allergy Verified 07/13/18 18:57 Home Medications Medication Instructions Recorded Confirmed Type docusate sodium 100 mg PO BID 03/03/18 07/14/18 History morphine [MS Contin] 100 mg PO Q8H 03/03/18 07/14/18 History oxycodone 30 mg PO Q4-6H PRN MDD 2.5 tablets 03/03/18 07/14/18 History Exam Vital signs: Vital Signs 07/13/18 18:52 07/13/18 19:30 07/13/18 20:00 Temperature 98.0 F Pulse Rate 110 H 108 H Respiratory Rate 20 18 Blood Pressure 92/51 L 70/55 L Pulse Oximetry 95 98 98 07/13/18 20:30 07/13/18 21:18 07/13/18 21:54 Temperature Pulse Rate 107 H 100 H Respiratory Rate 18 18 18 Blood Pressure 78/53 L 83/52 L Pulse Oximetry 99 100 07/13/18 22:30 07/13/18 23:28 07/14/18 01:00 Temperature 97.9 F Pulse Rate 86 94 H 98 H Respiratory Rate 18 18 18 Blood Pressure 90/51 L 90/54 L 89/54 L Pulse Oximetry 99 99 07/14/18 03:12 07/14/18 05:00 07/14/18 09:17 Temperature Pulse Rate 94 H 104 H 93 H Respiratory Rate 17 18 16 Blood Pressure 98/70 L 97/58 L 93/67 L Pulse Oximetry 96 99 98 Intake & Output 07/13/18 07/14/18 07/14/18 18:59 06:59 18:59 Intake Total 1849 Balance 1849 Weight 50.349 kg Intake: IV 1849 Zosyn 4.5 GM Premix 4.5 gm In 100 / 100 100 ml @ 200 mls/hr IV.SIG ONCE ONE Rx#:[id number] NS Inj 1,000 ML @ 1000 mls/hr 1000 / 1000 IV.SIG BOLUS SUSIE Rx#:[id number] NS Inj 500 ML @ 1000 mls/hr IV. 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 Absent: JVD, carotid bruit - Routine Respiratory Exam Present: wheezes, crackles - Routine Cardiovascular Exam Present: S1, S2, tachycardia - Routine Abdominal Exam Present: soft, normoactive bowel sounds - Routine Extremities Exam Present: full ROM. Absent: cyanosis, clubbing, edema - Routine Skin Exam Present: intact - Routine Neurological Exam Present: alert, oriented X3, CN II-XII intact Results - Lab Results 07/13/18 20:10 07/13/18 20:10 Most recent lab results Calcium 8.3 mg/dL (8.5-10.1) L 07/13/18 20:10 Magnesium 2.4 mg/dL (1.5-2.5) 07/13/18 20:10 Assessment and Plan - Assessment (1) Acute kidney injury Code(s): N17.9 - Acute kidney failure, unspecified Status: Acute Plan: Renal function has worsened, and it could be secondary to hypotension and renal hypoperfusion. I will cautiously hydrate the patient. Monitor urine output and renal function. Avoid nephrotoxic agents. I have stopped Lasix and potassium at this time. Renal US is negative for hydronephrosis. (2) Lung cancer Code(s): C34.90 - Malignant neoplasm of unspecified part of unspecified bronchus or lung Status: Acute Plan: Patient with metastatic lung cancer. Poor prognosis. Follows with oncology. (3) PNA (pneumonia) Code(s): J18.9 - Pneumonia, unspecified organism Status: Acute Plan: may have post obstructive pneumonia, apparently improving. (4) Seizure disorder Code(s): G40.909 - Epilepsy, unspecified, not intractable, without status epilepticus Status: Acute Plan: Continue Keppra (5) Hyponatremia Code(s): E87.1 - Hypo-osmolality and hyponatremia Status: Acute Plan: SIADH due to lung cancer vs non osmotic release of ADH due to hypotension. Also consider possibility of adrenal insufficiency. - Attending Attestation Thanks for the consult.
[2018-07-14] MEDS: Morphine Sulfate 100 MG SR Tablet PO SCH ×2 (14:43→22:16)
[2018-07-14] MEDS ORDERED: Digoxin Inj 500 MCG/2 ML Ampul IV.PUSH ONE (17:37)
[2018-07-14] MEDS: Sod Chloride 0.9% Inj 1,000 ML IV.SIG SCH (17:54)
[2018-07-15] MEDS: Morphine Sulfate 100 MG SR Tablet PO SCH ×3 (06:01→22:07)
--- NOTE | 2018-07-15 06:54 | P.PN ---
Subjective Interval history: seen 07/14- - original note was placed on a previous Hospital visit awake and alert complains of tiredness no fever complains of pain both legs states he was supposed to get radiation done Physical Exam Vital signs: Vital Signs 07/14/18 09:17 07/14/18 14:00 07/14/18 15:44 Temperature Pulse Rate 93 H 116 H 154 H Respiratory Rate 16 16 23 Blood Pressure 93/67 L 99/60 L Pulse Oximetry 98 96 07/14/18 15:47 07/14/18 16:00 07/14/18 16:05 Temperature 98.8 F Pulse Rate 129 H 120 H 118 H Respiratory Rate 14 19 17 Blood Pressure 83/55 L 78/52 L 81/55 L Pulse Oximetry 96 97 97 07/14/18 17:00 07/14/18 18:00 07/14/18 19:00 Temperature 97.9 F Pulse Rate 120 H 107 H 127 H Respiratory Rate 19 12 30 H Blood Pressure 91/57 L 99/67 L 91/61 L Pulse Oximetry 98 99 100 07/14/18 20:00 07/14/18 21:00 07/14/18 22:00 Temperature Pulse Rate 103 H 116 H 117 H Respiratory Rate 16 18 45 H Blood Pressure 105/66 104/62 Pulse Oximetry 100 100 07/14/18 22:01 07/14/18 23:00 07/14/18 23:55 Temperature Pulse Rate 122 H 105 H 97 H Respiratory Rate 38 H 13 20 Blood Pressure 114/51 L 95/53 L 102/76 Pulse Oximetry 99 100 07/15/18 00:00 07/15/18 00:01 07/15/18 01:00 Temperature 98.6 F Pulse Rate 100 H 101 H 84 Respiratory Rate 26 H 24 7 L Blood Pressure 123/67 117/67 Pulse Oximetry 100 100 100 07/15/18 02:00 07/15/18 03:00 07/15/18 04:00 Temperature 98.5 F Pulse Rate 86 85 83 Respiratory Rate 10 L 14 13 Blood Pressure 110/69 113/66 125/80 Pulse Oximetry 100 99 100 07/15/18 05:00 07/15/18 05:04 Temperature Pulse Rate 85 82 Respiratory Rate 9 L 11 L Blood Pressure 120/75 Pulse Oximetry 100 100 Intake & Output 07/14/18 07/14/18 07/15/18 06:59 18:59 06:59 Intake Total 1850 / 1850 1180 / 1180 Output Total 350 / 350 Balance 1850 / 1850 830 / 830 Weight 47 kg Intake: IV 1850 / 1850 Zosyn 4.5 GM Premix 4.5 gm In 100 / 100 100 ml @ 200 mls/hr IV.SIG ONCE ONE Rx#:[id number] NS Inj 1,000 ML @ 1000 mls/hr 1000 / 1000 IV.SIG BOLUS SUSIE Rx#:[id number] NS Inj 500 ML @ 1000 mls/hr IV. 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 SUSIE Rx#:[id number] Oral 1180 / 1180 Output: Urine 350 / 350 Other: # Voids 6 Date of Last Bowel Movement 07/14/18 # Bowel Movements 3 Weight On Admission 47 kg Narrative: Physical Exam Narrative: awake and alert, oriented x 3 anciteric neck supole decreased breath sounds, no rales irregularly irregular rhythm abdomen soft extremities = + trace edema- bilateral calves tender - Urinary Catheter Management Coude Cath placed during this visit: yes, but has since been removed by the nurse Reason for continuing: Not indwelling catheter Insertion date: 06/17/18 Insertion time: 16:30 Removal date: 06/18/18 Removal time: 12:00 Results - Labs CBC & Chem 7: 07/13/18 20:10 07/13/18 20:10 Laboratory Results - last 24 hr 07/14/18 15:50 Nasal Screen MRSA (PCR) Not detected Microbiology 07/13/18 21:45 Blood - Peripheral Aerobic Blood Culture - Preliminary No growth in 1 day 07/13/18 21:45 Blood - Peripheral Anaerobic Blood Culture - Preliminary No growth in 1 day 07/13/18 21:50 Blood - Peripheral Aerobic Blood Culture - Preliminary No growth in 1 day 07/13/18 21:50 Blood - Peripheral Anaerobic Blood Culture - Preliminary No growth in 1 day - Imaging Impressions Abdomen/Bladder Ultrasound 07/14/18 00:00 CONCLUSION: Negative renal sonogram. Chest CT 07/14/18 07:46 CONCLUSION: 1. Large mass of the right lung base with extension into the subcarinal region. This is stable compared to previous exam. 2. Significant improvement in the appearance of the airspace disease involving the right upper and middle lobe as well as the left lower lobe. Assessment and Plan - Plan Assessment/plan: 1. Pneumonia/COPD Chest x-ray significant for persistent consolidation in the medial right lung base Patient with recent history of aspiration pneumonia Vancomycin/Zosyn Blood cultures pending Patient with leukocytosis however is on systemic steroids 2. Acute renal failure HYponatremia Creatinine 2.41, baseline 0.6 Renal ultrasound pending Nephrology consulted, appreciate assistance- ALIS and diuretics discontinued gentle hydration BMP in am 3. 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 Herrera, appreciate assistance restart home pain meds regimen- Oramorph + Roxicodone 4. Atrial fibrillation- rate RVR- 120s on telemetry Cardiomyopathy EF < 25 % Per most recent discharge summary, patient cleared for baby aspirin for anticoagulation only -given metastatic disease to the brain Continue aspirin and Coreg Consider Cardiology consult- previous admission was seen by Dr. Thomas BP too low to increase dose coreg or to add CCB started on gentle hydration DC Lasix and ALIS with JAEL IV digoxin x 1 dose now. - d/w renal- OK to give 1 dose only and monitor and monitor rate 5. Bilateral calves pain - get doppler US of both legs FEN Regular diet Electrolytes: Monitor and replete as needed SCDs
--- NOTE | 2018-07-15 07:40 | P.PNONC ---
Subjective Interval history: Patient is feeling stronger. He was up ambulating around the room. His shortness of breath has improved. He still has cough bringing up light grayish sputum but is getting better. He still has chronic back pain. He denies any headache or focal weakness. Objective Vital Signs/Intake & Output: Vital Signs 07/14/18 09:17 07/14/18 14:00 07/14/18 15:44 Temperature Pulse Rate 93 H 116 H 154 H Respiratory Rate 16 16 23 Blood Pressure 93/67 L 99/60 L Pulse Oximetry 98 96 07/14/18 15:47 07/14/18 16:00 07/14/18 16:05 Temperature 98.8 F Pulse Rate 129 H 120 H 118 H Respiratory Rate 14 19 17 Blood Pressure 83/55 L 78/52 L 81/55 L Pulse Oximetry 96 97 97 07/14/18 17:00 07/14/18 18:00 07/14/18 19:00 Temperature 97.9 F Pulse Rate 120 H 107 H 127 H Respiratory Rate 19 12 30 H Blood Pressure 91/57 L 99/67 L 91/61 L Pulse Oximetry 98 99 100 07/14/18 20:00 07/14/18 21:00 07/14/18 22:00 Temperature Pulse Rate 103 H 116 H 117 H Respiratory Rate 16 18 45 H Blood Pressure 105/66 104/62 Pulse Oximetry 100 100 07/14/18 22:01 07/14/18 23:00 07/14/18 23:55 Temperature Pulse Rate 122 H 105 H 97 H Respiratory Rate 38 H 13 20 Blood Pressure 114/51 L 95/53 L 102/76 Pulse Oximetry 99 100 07/15/18 00:00 07/15/18 00:01 07/15/18 01:00 Temperature 98.6 F Pulse Rate 100 H 101 H 84 Respiratory Rate 26 H 24 7 L Blood Pressure 123/67 117/67 Pulse Oximetry 100 100 100 07/15/18 02:00 07/15/18 03:00 07/15/18 04:00 Temperature 98.5 F Pulse Rate 86 85 83 Respiratory Rate 10 L 14 13 Blood Pressure 110/69 113/66 125/80 Pulse Oximetry 100 99 100 07/15/18 05:00 07/15/18 05:04 Temperature Pulse Rate 85 82 Respiratory Rate 9 L 11 L Blood Pressure 120/75 Pulse Oximetry 100 100 Intake & Output 07/14/18 07/15/18 07/15/18 18:59 06:59 18:59 Intake Total 1180 / 1180 300 / 300 Output Total 350 / 350 500 / 500 Balance 830 / 830 -200 / -200 Weight 47 kg 49.2 kg Intake: Oral 1180 / 1180 300 / 300 Output: Urine 350 / 350 500 / 500 Other: # Voids 6 2 Date of Last Bowel Movement 07/14/18 # Bowel Movements 3 Weight On Admission 47 kg Result Diagrams: 07/13/18 20:10 07/13/18 20:10 Laboratory Results: Laboratory Results - last 24 hr 07/14/18 15:50 Nasal Screen MRSA (PCR) Not detected Culture Results: Microbiology 07/13/18 21:45 Aerobic Blood Culture - Preliminary Blood - Peripheral No growth in 1 day Anaerobic Blood Culture - Preliminary No growth in 1 day 07/13/18 21:50 Aerobic Blood Culture - Preliminary Blood - Peripheral No growth in 1 day Anaerobic Blood Culture - Preliminary No growth in 1 day Imaging Studies: Impressions Abdomen/Bladder Ultrasound 07/14/18 00:00 CONCLUSION: Negative renal sonogram. Chest CT 07/14/18 07:46 CONCLUSION: 1. Large mass of the right lung base with extension into the subcarinal region. This is stable compared to previous exam. 2. Significant improvement in the appearance of the airspace disease involving the right upper and middle lobe as well as the left lower lobe. Medications: Active Medications Generic Name Dose Route Start Last Admin Trade Name Freq PRN Reason Stop Dose Admin Aspirin 81 mg 07/14/18 09:00 07/14/18 10:29 Ecotrin PO 81 mg DAILY SUSIE Administration Carvedilol 3.125 mg 07/14/18 09:00 07/14/18 21:45 Coreg PO 3.125 mg BID SUSIE Administration Dexamethasone 4 mg 07/14/18 09:00 07/14/18 21:46 Decadron PO 4 mg BID SUSIE Administration Vancomycin HCl 1,000 mg/ 250 mls @ 250 mls/hr 07/13/18 22:00 07/13/18 23:41 Sodium Chloride IV.SIG Infused CYCLE MANAGER SUSIE Infusion Sodium Chloride 1,000 mls @ 50 mls/hr 07/14/18 17:30 07/14/18 17:54 Ns Inj IV.SIG 50 mls/hr .Q20H SUSIE Administration Levetiracetam 500 mg 07/14/18 09:00 07/14/18 21:46 Keppra PO 500 mg BID SUSIE Administration Morphine Sulfate 100 mg 07/14/18 14:00 07/15/18 06:01 Oramorph Sr PO 100 mg Q8HR SUSIE Administration Oxycodone HCl 30 mg 07/14/18 10:20 07/14/18 23:57 Roxicodone PO 30 mg Q4H PRN Administration BREAKTHROUGH PAIN Sodium Chloride 2 ml 07/14/18 09:00 07/14/18 22:16 Ns Flush IV.FLUSH 2 ml BID SUSIE Administration Objective Remarks: GENERAL: Well-nourished, well-developed patient. Weak. SKIN: Warm and dry. HEAD: Normocephalic. EYES: No scleral icterus. No injection or drainage. NECK: Supple, trachea midline. No JVD or lymphadenopathy. LYMPHATIC: No adenopathy. CARDIOVASCULAR: Regular rate and rhythm without murmurs. RESPIRATORY: Breath sounds diminished right lung base. No accessory muscle use. GASTROINTESTINAL: Abdomen soft, non-tender, nondistended. EXTREMITIES: No cyanosis, or trace ankles edema. MUSCULOSKELETAL: Adequate muscle tone. NEUROLOGICAL: No obvious focal deficit. Awake, alert, and oriented x3. PSYCHIATRIC: Appropriate mood and affect; insight and judgment normal. Assessment/Plan - Plan 1. Metastatic small cell lung carcinoma. He presented with shortness of breath and constitutional symptoms. He was found to have a large right lower lobe mass obstructing the bronchus causing partial collapse of right lung. There were also multiple pleural and subpleural nodules in the right lung. He also found to have a brain metastasis. Bronchoscopy and biopsy of right lower lobe lung mass showed small cell lung carcinoma. He started carboplatin, etoposide 02/2018. He just completed fourth cycle on 06/17/2018. He was supposed to come to clinic yesterday for another cycle of chemotherapy, but he did not show up. We have ordered a CT scan, but again he did not get the CT scan done. During his last admission, a CT of the chest still showed right lung consolidation. Clinically, he has shortness of breath and cough. A chest x-ray showed persistent consolidation in the medial right lung. July 15: CT of the chest shows stable right lower lobe consolidation/mass. The previously noted bilateral lung infiltrates have significantly improved. Patient's shortness of breath and cough have improved with antibiotics. 2. Brain metastasis. Initially, he had a small lesion and received stereotactic radiation in April. Recent MRI showed 2 other lesions, one in the frontal lobe and one in the left parietal lobe. He is supposed to see Dr. wolff for whole brain irradiation, but is unclear if he actually completed the radiation. He is still on Decadron. He has no new neurologic symptoms at this time. 3. Seizure disorder due to brain metastasis which has not recurred. 4. Chronic atrial fibrillation. 5. Recent aspiration pneumonia. 6. Chronic obstructive pulmonary disease. 7. Congestive heart failure with ejection fraction less than 25%. 8. Chronic pain. RECOMMENDATIONS: 1. Review of CT scan with patient. 2. Continue antibiotics and supportive care per primary team. 3. We will check with Dr. Wolff's office to see if patient actually complete the brain radiation. 4. Hold chemotherapy for now until infection is cleared. Patient can continue treatment at outpatient clinic.
[2018-07-15 07:46] LABS: Baso % (Auto) 0.1 % (0.0-2.0); Hematocrit 28.6 % (39.0-51.0); Hemoglobin 9.5 gm/dL (13.0-17.0); Lymph # (Auto) 0.6 th/mm3 (1.0-4.8); Lymph % (Auto) 4.8 % (9.0-44.0); Mean Corpuscular HGB Conc 33.2 % (32.0-36.0); Mean Corpuscular Hemoglobin 31.4 pg (27.0-34.0); Mean Corpuscular Volume 94.6 fL (80.0-100.0); Mean Platelet Volume 8.2 fL (7.0-11.0); Mono # (Auto) 0.2 th/mm3 (0.0-0.9); Neut # (Auto) 11.4 th/mm3 (1.8-7.7); Neut % (Auto) 93.1 % (16.0-70.0); Platelet Count 174 th/mm3 (150-450); Red Blood Count 3.03 mil/mm3 (4.50-5.90); Red Cell Distribution Width 24.3 % (11.6-17.2); White Blood Count 12.3 th/mm3 (4.0-11.0)
[2018-07-15 08:21] LABS: Calcium 7.7 mg/dL (8.5-10.1); Carbon Dioxide 30.4 meq/L (21.0-32.0); Potassium 4.3 meq/L (3.5-5.1)
[2018-07-15] MEDS: levETIRAcetam 500 MG Tablet PO SCH ×2 (08:43→20:46)
--- NOTE | 2018-07-15 09:29 | US ---
EXAM DATE: 07/15/2018 9:26 AM EST AGE/SEX: 62 years / Male INDICATIONS: Bilateral leg pain. CLINICAL DATA: This is the patient's subsequent encounter. Patient reports that signs and symptoms h ave been present for 1 day and indicates a pain score of 5/10. MEDICAL/SURGICAL HISTORY: Carcinoma, lung. Carcinoma, brain. COPD. Edema. Osteomyelitis. Neck p ain. Chemotherapy. . Inguinal hernia repair. Port-A-Cath placement. COMPARISON: [facility] [place] VENOUS DOPPLER LEG BI, 03/01/2018. . TECHNIQUE: Venous ultrasound of both lower extremities was performed from the inguinal ligament to t he proximal calf. Real-time, color Doppler and spectral tracing, compression and augmentation techni ques were used. FINDINGS: Right Leg: Normal compression of the deep venous system from the inguinal region to the proximal gabby f. No echogenic clot is seen. Normal response of the venous system to augmentation and respiration. Left Leg: Normal compression of the deep venous system from the inguinal region to the proximal calf . No echogenic clot is seen. Normal response of the venous system to augmentation and respiration. Other: Lymph nodes are seen in the inguinal regions. CONCLUSION: No DVT. Electronically signed by: Dheeraj Ybarra MD 07/15/2018 9:27 AM EST
--- NOTE | 2018-07-15 09:38 | P.PNIM ---
Subjective Interval history: Patient reports bilateral lower extremity pain continues. Denies any chest pain. He reports that shortness of breath a little better. He reports difficulty swallowing over the past several months, coughs after eating. Physical Exam Vital signs: Vital Signs 07/14/18 14:00 07/14/18 15:44 07/14/18 15:47 Temperature Pulse Rate 116 H 154 H 129 H Respiratory Rate 16 23 14 Blood Pressure 99/60 L 83/55 L Pulse Oximetry 96 96 07/14/18 16:00 07/14/18 16:05 07/14/18 17:00 Temperature 98.8 F Pulse Rate 120 H 118 H 120 H Respiratory Rate 19 17 19 Blood Pressure 78/52 L 81/55 L 91/57 L Pulse Oximetry 97 97 98 07/14/18 18:00 07/14/18 19:00 07/14/18 20:00 Temperature 97.9 F Pulse Rate 107 H 127 H 103 H Respiratory Rate 12 30 H 16 Blood Pressure 99/67 L 91/61 L 105/66 Pulse Oximetry 99 100 100 07/14/18 21:00 07/14/18 22:00 07/14/18 22:01 Temperature Pulse Rate 116 H 117 H 122 H Respiratory Rate 18 45 H 38 H Blood Pressure 104/62 114/51 L Pulse Oximetry 100 07/14/18 23:00 07/14/18 23:55 07/15/18 00:00 Temperature 98.6 F Pulse Rate 105 H 97 H 100 H Respiratory Rate 13 20 26 H Blood Pressure 95/53 L 102/76 Pulse Oximetry 99 100 100 07/15/18 00:01 07/15/18 01:00 07/15/18 02:00 Temperature Pulse Rate 101 H 84 86 Respiratory Rate 24 7 L 10 L Blood Pressure 123/67 117/67 110/69 Pulse Oximetry 100 100 100 07/15/18 03:00 07/15/18 04:00 07/15/18 05:00 Temperature 98.5 F Pulse Rate 85 83 85 Respiratory Rate 14 13 9 L Blood Pressure 113/66 125/80 Pulse Oximetry 99 100 100 07/15/18 05:04 Temperature Pulse Rate 82 Respiratory Rate 11 L Blood Pressure 120/75 Pulse Oximetry 100 Intake & Output 07/14/18 07/15/18 07/15/18 18:59 06:59 18:59 Intake Total 1180 / 1180 300 / 300 Output Total 350 / 350 500 / 500 Balance 830 / 830 -200 / -200 Weight 47 kg 49.2 kg Intake: Oral 1180 / 1180 300 / 300 Output: Urine 350 / 350 500 / 500 Other: # Voids 6 2 Date of Last Bowel Movement 07/14/18 # Bowel Movements 3 Weight On Admission 47 kg Narrative: GENERAL: Patient sitting up on edge of bed. Appears comfortable. SKIN: Warm and dry. HEAD: Normocephalic. EYES: No scleral icterus. No injection or drainage. NECK: Supple, trachea midline. No JVD CARDIOVASCULAR: Regular rate and rhythm without murmurs, gallops, or rubs. RESPIRATORY: Crackles bilaterally. No accessory muscle use. GASTROINTESTINAL: Abdomen soft, non-tender, nondistended. MUSCULOSKELETAL: No cyanosis. +2 peripheral edema. Scab over left heath which patient says is chronic. No surrounding erythema. BACK: Nontender without obvious deformity. No CVA tenderness. Results - Labs CBC & Chem 7: 07/15/18 06:10 07/15/18 06:10 Laboratory Results - last 24 hr 07/14/18 07/15/18 07/15/18 15:50 06:10 06:10 WBC 12.3 H RBC 3.03 L Hgb 9.5 L Hct 28.6 L MCV 94.6 MCH 31.4 MCHC 33.2 RDW 24.3 H Plt Count 174 MPV 8.2 Neut % (Auto) 93.1 H Lymph % (Auto) 4.8 L [place] % (Auto) 2.0 Eos % (Auto) 0.0 Baso % (Auto) 0.1 Neut # (Auto) 11.4 H Lymph # (Auto) 0.6 L [place] # (Auto) 0.2 Eos # (Auto) 0.0 Baso # (Auto) 0.0 WBC Differential . Differential Comment Auto diff final Sodium 131 L Potassium 4.3 Chloride 95 L Carbon Dioxide 30.4 Anion Gap 6 BUN 39 H Creatinine 1.02 Estimated GFR 74 L Random Glucose 125 H Calcium 7.7 L Nasal Screen MRSA (PCR) Not detected Microbiology 07/13/18 21:45 Blood - Peripheral Aerobic Blood Culture - Preliminary No growth in 1 day 07/13/18 21:45 Blood - Peripheral Anaerobic Blood Culture - Preliminary No growth in 1 day 07/13/18 21:50 Blood - Peripheral Aerobic Blood Culture - Preliminary No growth in 1 day 07/13/18 21:50 Blood - Peripheral Anaerobic Blood Culture - Preliminary No growth in 1 day - Imaging Impressions Chest CT 07/14/18 07:46 CONCLUSION: 1. Large mass of the right lung base with extension into the subcarinal region. This is stable compared to previous exam. 2. Significant improvement in the appearance of the airspace disease involving the right upper and middle lobe as well as the left lower lobe. Venous Doppler Study 07/15/18 00:00 CONCLUSION: No DVT. Assessment and Plan - Plan Assessment/plan: //Pneumonia/COPD Chest x-ray significant for persistent consolidation in the medial right lung base Patient with recent history of aspiration pneumonia Vancomycin/Zosyn Blood cultures pending Patient with leukocytosis however is on systemic steroids = Zosyn. She reports difficulty swallowing over the past several months. Order speech therapy evaluation. // Acute renal failure HYponatremia Creatinine 2.41, baseline 0.6 Renal ultrasound pending Nephrology consulted, appreciate assistance- ALIS and diuretics discontinued gentle hydration BMP in am = Creatinine 1.0, BUN 39 from 64 on 07/13. Markedly improved. Continue to monitor. Appreciate nephrology assistance. 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 Herrera, appreciate assistance restart home pain meds regimen- Oramorph + Roxicodone =07/15 continue home pain regimen. Oncology following. Appreciate assistance. //Atrial fibrillation- rate RVR- 120s on telemetry Cardiomyopathy EF < 25 % Per most recent discharge summary, patient cleared for baby aspirin for anticoagulation only -given metastatic disease to the brain Continue aspirin and Coreg Consider Cardiology consult- previous admission was seen by Dr. Thomas BP too low to increase dose coreg or to add CCB started on gentle hydration DC Lasix and ALIS with JAEL IV digoxin x 1 dose now. - d/w renal- OK to give 1 dose only and monitor and monitor rate. = Heart rate stable. Continues on Coreg. As digoxin wears off, if heart rate increases and blood pressure remains borderline, may benefit from switch to metoprolol // Bilateral calves pain - get doppler US of both legs = 07/15. Order Doppler ultrasound of both legs. FEN Regular diet Electrolytes: Monitor and replete as needed SCDs Discharge Planning: Continue treatment in ICU. Will need nephrology, oncology clearance.
[2018-07-15] MEDS: Piperacil/Tazo 3.375 GM Premix 50 ML IV.SIG SCH ×3 (12:09→22:07)
--- NOTE | 2018-07-15 13:14 | P.PNNP ---
Subjective Interval history: Patient was seen, no distress. Had complaints of lower extremity pain. Was requesting pain medication. Patient is getting a swallowing test done today due to trouble swallowing. Patient's renal function has improved today. Creatinine is 1.02. Patient stated he is having good urine output. <Carey Hampton - Last Filed: 07/15/18 13:16> Physical Exam Vital signs: Vital Signs 07/14/18 14:00 07/14/18 15:44 07/14/18 15:47 Temperature Pulse Rate 116 H 154 H 129 H Respiratory Rate 16 23 14 Blood Pressure 99/60 L 83/55 L Pulse Oximetry 96 96 07/14/18 16:00 07/14/18 16:05 07/14/18 17:00 Temperature 98.8 F Pulse Rate 120 H 118 H 120 H Respiratory Rate 19 17 19 Blood Pressure 78/52 L 81/55 L 91/57 L Pulse Oximetry 97 97 98 07/14/18 18:00 07/14/18 19:00 07/14/18 20:00 Temperature 97.9 F Pulse Rate 107 H 127 H 103 H Respiratory Rate 12 30 H 16 Blood Pressure 99/67 L 91/61 L 105/66 Pulse Oximetry 99 100 100 07/14/18 21:00 07/14/18 22:00 07/14/18 22:01 Temperature Pulse Rate 116 H 117 H 122 H Respiratory Rate 18 45 H 38 H Blood Pressure 104/62 114/51 L Pulse Oximetry 100 07/14/18 23:00 07/14/18 23:55 07/15/18 00:00 Temperature 98.6 F Pulse Rate 105 H 97 H 100 H Respiratory Rate 13 20 26 H Blood Pressure 95/53 L 102/76 Pulse Oximetry 99 100 100 07/15/18 00:01 07/15/18 01:00 07/15/18 02:00 Temperature Pulse Rate 101 H 84 86 Respiratory Rate 24 7 L 10 L Blood Pressure 123/67 117/67 110/69 Pulse Oximetry 100 100 100 07/15/18 03:00 07/15/18 04:00 07/15/18 05:00 Temperature 98.5 F Pulse Rate 85 83 85 Respiratory Rate 14 13 9 L Blood Pressure 113/66 125/80 Pulse Oximetry 99 100 100 07/15/18 05:04 Temperature Pulse Rate 82 Respiratory Rate 11 L Blood Pressure 120/75 Pulse Oximetry 100 Intake & Output 07/14/18 07/15/18 07/15/18 18:59 06:59 18:59 Intake Total 1180 / 1180 300 / 300 Output Total 350 / 350 500 / 500 Balance 830 / 830 -200 / -200 Weight 47 kg 49.2 kg Intake: Oral 1180 / 1180 300 / 300 Output: Urine 350 / 350 500 / 500 Other: # Voids 6 2 Date of Last Bowel Movement 07/14/18 # Bowel Movements 3 Weight On Admission 47 kg - Constitutional no acute distress - Routine HEENT Exam Eye: Present: EOMI, PERRL ENT: Present: mucous membranes moist - Routine Neck Exam Present: trachea midline. Absent: tracheal deviation - Routine Respiratory Exam Present: decreased breath sounds. Absent: accessory muscle use, CTA bilaterally , respiratory distress - Routine Cardiovascular Exam Present: RRR. Absent: murmur - Routine Abdominal Exam Present: soft. Absent: tenderness - Routine Extremities Exam Present: edema, pulses intact - Routine Neurological Exam Present: alert, oriented X3 <Carey Hampton - Last Filed: 07/15/18 13:16> Vital signs: Vital Signs 07/14/18 15:44 07/14/18 15:47 07/14/18 16:00 Temperature 98.8 F Pulse Rate 154 H 129 H 120 H Respiratory Rate 23 14 19 Blood Pressure 83/55 L 78/52 L Pulse Oximetry 96 97 07/14/18 16:05 07/14/18 17:00 07/14/18 18:00 Temperature Pulse Rate 118 H 120 H 107 H Respiratory Rate 17 19 12 Blood Pressure 81/55 L 91/57 L 99/67 L Pulse Oximetry 97 98 99 07/14/18 19:00 07/14/18 20:00 07/14/18 21:00 Temperature 97.9 F Pulse Rate 127 H 103 H 116 H Respiratory Rate 30 H 16 18 Blood Pressure 91/61 L 105/66 104/62 Pulse Oximetry 100 100 100 07/14/18 22:00 07/14/18 22:01 07/14/18 23:00 Temperature Pulse Rate 117 H 122 H 105 H Respiratory Rate 45 H 38 H 13 Blood Pressure 114/51 L 95/53 L Pulse Oximetry 99 07/14/18 23:55 07/15/18 00:00 07/15/18 00:01 Temperature 98.6 F Pulse Rate 97 H 100 H 101 H Respiratory Rate 20 26 H 24 Blood Pressure 102/76 123/67 Pulse Oximetry 100 100 100 07/15/18 01:00 07/15/18 02:00 07/15/18 03:00 Temperature Pulse Rate 84 86 85 Respiratory Rate 7 L 10 L 14 Blood Pressure 117/67 110/69 113/66 Pulse Oximetry 100 100 99 07/15/18 04:00 07/15/18 05:00 07/15/18 05:04 Temperature 98.5 F Pulse Rate 83 85 82 Respiratory Rate 13 9 L 11 L Blood Pressure 125/80 120/75 Pulse Oximetry 100 100 100 Intake & Output 07/14/18 07/15/18 07/15/18 18:59 06:59 18:59 Intake Total 1180 / 1180 300 / 300 Output Total 350 / 350 500 / 500 Balance 830 / 830 -200 / -200 Weight 47 kg 49.2 kg Intake: Oral 1180 / 1180 300 / 300 Output: Urine 350 / 350 500 / 500 Other: # Voids 6 2 Date of Last Bowel Movement 07/14/18 # Bowel Movements 3 Weight On Admission 47 kg <Shankar Herr - Last Filed: 07/15/18 15:37> Assessment and Plan - Assessment (1) Acute kidney injury Code(s): N17.9 - Acute kidney failure, unspecified Status: Acute Plan: Renal function has improved, Creatinine is 1.02. Monitor urine output and renal function. Avoid nephrotoxic agents. (2) Lung cancer Code(s): C34.90 - Malignant neoplasm of unspecified part of unspecified bronchus or lung Status: Acute Plan: Patient with metastatic lung cancer. Poor prognosis. Follows with oncology. (3) PNA (pneumonia) Code(s): J18.9 - Pneumonia, unspecified organism Status: Acute Plan: Apparently improving. On Vancomycin/Zosyn (4) Seizure disorder Code(s): G40.909 - Epilepsy, unspecified, not intractable, without status epilepticus Status: Acute Plan: Continue Keppra (5) Hyponatremia Code(s): E87.1 - Hypo-osmolality and hyponatremia Status: Acute Plan: SIADH due to lung cancer vs non osmotic release of ADH due to hypotension. Also consider possibility of adrenal insufficiency. <Carey Hampton - Last Filed: 07/15/18 13:16> - Assessment (1) Acute kidney injury Code(s): N17.9 - Acute kidney failure, unspecified Status: Acute (2) Lung cancer Code(s): C34.90 - Malignant neoplasm of unspecified part of unspecified bronchus or lung Status: Acute (3) PNA (pneumonia) Code(s): J18.9 - Pneumonia, unspecified organism Status: Acute (4) Seizure disorder Code(s): G40.909 - Epilepsy, unspecified, not intractable, without status epilepticus Status: Acute (5) Hyponatremia Code(s): E87.1 - Hypo-osmolality and hyponatremia Status: Acute - Attending Attestation patient was seen and examined. Renal function has improved. Hyponatremia is noted, it could be secondary to SIADH from lung cancer or due to non osmotic release of ADH resulting from hypotension. <Shankar Herr - Last Filed: 07/15/18 15:37>
--- NOTE | 2018-07-15 15:45 | P.DIET ---
Nutritional Evaluation Type of nutrition evaluation: initial Nutrition consult regarding: Diet Evaluation Nutrition screening: Weight Loss > 10 lbs Screening comments: 07/14 WLS Objective - Diagnosis sepsis, pneumonia, JAEL - Objective Body Mass Index: 18.0 % IBW: 80 (IBW = 136lb) Body Weight Used for Calculations: Actual Energy Needs - Lower Range (kCal/kg): 30 Energy Needs - Upper Range (kCal/kg): 35 Lower Limit kCal/kg (kCals): 1,476 Upper Limit kCal/kg (kCals): 1,722 Lower Limit Protein Factor (Grams per Kg): 1.2 Upper Limit Protein Factor (Grams per Kg): 1.4 Lower Protein Needs (Protein): 59 Upper Protein Needs (Protein): 69 Dietitian Reviewed in Medical Record: Current diet, Curent medications, Intake & Output, Labs, Medical history Diet Order: cardiac Objective Comments: PMH: brain and lung CA, COPD, hx of chemo, osteomyelitis Assessment Assessment: Pt currently at nutritional risk r/t reported unplanned wt loss for more than 10lbs and low BMI. Pt consumed 75% of his dinner meal yesterday (07/14) and tolerated well. RD to recommend Ensure Enlive TID for pt as PO supplement for additional nutrition. Wt loss noted, pt current body weight is 49.2kg, previous RD note on 06/23 states pt was 57kg (-7.8kg wt loss). Per MD note, pt has difficulty swallowing, coughing as he eats. Will continue to monitor wt changes and PO intake. Continue to monitor swallow/ST recs. Labs reviewed, dietitian following. Recommendations: 1. RD to recommend Ensure Enlive TID for pt as PO supplement for additional nutrition 2. Wt loss noted, pt current body weight is 49.2kg, previous RD note on 06/23 states pt was 57kg (-7.8kg wt loss) 3. Will continue to monitor wt changes and PO intake 4. Continue to monitor swallow/ST recs 5. Dietitian following Dietitian to Monitor: Lab values, Supplement acceptance, Intake & Output, Diet tolerance, Weight change, PO Intake, Swallow recommendations, Medical course
[2018-07-15] MEDS: Sod Chloride 0.9% Inj 1,000 ML IV.SIG SCH (16:32)
[2018-07-16] MEDS: Piperacil/Tazo 3.375 GM Premix 50 ML IV.SIG SCH ×4 (04:11→22:38)
[2018-07-16] MEDS: Morphine Sulfate 100 MG SR Tablet PO SCH ×3 (05:25→22:38)
[2018-07-16] MEDS: levETIRAcetam 500 MG Tablet PO SCH ×2 (09:05→20:17)
--- NOTE | 2018-07-16 10:08 | FL ---
EXAM DATE: 07/16/2018 10:02 AM EST AGE/SEX: 62 years / Male INDICATIONS: Dysphagia. CLINICAL DATA: This is the patient's initial encounter. Patient reports that signs and symptoms have been present for 1 month and indicates a pain score of 0/10. MEDICAL/SURGICAL HISTORY: . Carcinoma, lung. Carcinoma, brain. COPD. Edema. Osteomyelitis. Neck pain. Chemotherapy. . Inguinal hernia repair. Port-A-Cath placement. . COMPARISON: No prior exams available for comparison. FLUORO TIME: 2.4 IMAGE COUNT: 2 FINDINGS: A modified barium swallow was performed with speech pathology. Patient was given a variety of liquids to swallow. There was some penetration and aspiration with the thin liquids. For a full detailed report, see report by the speech pathologist. CONCLUSION: Penetration and aspiration with some of the thin liquids. Electronically signed by: Javi May MD 07/16/2018 10:07 AM EST
[2018-07-16 10:37] LABS: Hematocrit 30.3 % (39.0-51.0); Hemoglobin 10.2 gm/dL (13.0-17.0); Mean Corpuscular HGB Conc 33.7 % (32.0-36.0); Mean Corpuscular Hemoglobin 31.8 pg (27.0-34.0); Mean Corpuscular Volume 94.4 fL (80.0-100.0); Mean Platelet Volume 8.1 fL (7.0-11.0); Platelet Count 201 th/mm3 (150-450); Red Blood Count 3.21 mil/mm3 (4.50-5.90); White Blood Count 14.6 th/mm3 (4.0-11.0)
[2018-07-16] MEDS: Sod Chloride 0.9% Inj 1,000 ML IV.SIG SCH (11:00)
[2018-07-16 11:17] LABS: Calcium 8.7 mg/dL (8.5-10.1); Carbon Dioxide 26.4 meq/L (21.0-32.0)
--- NOTE | 2018-07-16 11:28 | P.PNONC ---
Subjective Interval history: Afebrile Patient resting in bed no acute distress Reports his shortness of breath is about the same No fevers Objective Vital Signs/Intake & Output: Vital Signs 07/15/18 12:00 07/15/18 20:00 07/15/18 21:00 Temperature 98.1 F 98.3 F Pulse Rate 98 H 110 H 99 H Respiratory Rate 18 22 Blood Pressure 128/67 121/69 Pulse Oximetry 98 97 07/15/18 22:00 07/15/18 23:00 07/16/18 00:00 Temperature 98.1 F Pulse Rate 98 H 105 H 87 Respiratory Rate 20 Blood Pressure 126/77 Pulse Oximetry 99 07/16/18 00:15 07/16/18 01:00 07/16/18 02:00 Temperature Pulse Rate 85 91 H Respiratory Rate Blood Pressure Pulse Oximetry 98 07/16/18 03:00 07/16/18 04:00 07/16/18 05:00 Temperature 97.9 F Pulse Rate 92 H 94 H 90 Respiratory Rate 20 Blood Pressure 141/87 H Pulse Oximetry 98 07/16/18 06:00 07/16/18 07:00 07/16/18 08:00 Temperature 97.7 F Pulse Rate 89 119 H 91 H Respiratory Rate 18 Blood Pressure 144/88 H Pulse Oximetry 99 07/16/18 11:20 Temperature 97.5 F L Pulse Rate 100 H Respiratory Rate 18 Blood Pressure 121/81 Pulse Oximetry 100 Intake & Output 07/15/18 07/16/18 07/16/18 18:59 06:59 18:59 Intake Total 520 / 520 580 / 580 Output Total 700 / 700 900 / 900 Balance -180 / -180 -320 / -320 Weight 109 lb 2.061 oz Intake: IV 100 / 100 100 / 100 Zosyn 3.375 GM Premix 50 ML @ 100 / 100 100 / 100 100 mls/hr IV.SIG Q6H SUSIE Rx#: [id number] Oral 420 / 420 480 / 480 Output: Urine 700 / 700 900 / 900 Other: Date of Last Bowel Movement 07/14/18 07/15/18 # Bowel Movements 0 0 Result Diagrams: 07/17/18 05:29 07/16/18 10:14 Laboratory Results: Laboratory Results - last 24 hr 07/16/18 07/16/18 10:14 10:14 WBC 14.6 H RBC 3.21 L Hgb 10.2 L Hct 30.3 L MCV 94.4 MCH 31.8 MCHC 33.7 RDW 24.0 H Plt Count 201 MPV 8.1 Sodium 130 L Potassium 4.0 Chloride 95 L Carbon Dioxide 26.4 Anion Gap 9 BUN 38 H Creatinine 1.01 Estimated GFR 75 L Random Glucose 144 H Calcium 8.7 D Culture Results: Microbiology 07/13/18 21:45 Aerobic Blood Culture - Preliminary Blood - Peripheral No growth in 3 days Anaerobic Blood Culture - Preliminary No growth in 3 days 07/13/18 21:50 Aerobic Blood Culture - Preliminary Blood - Peripheral No growth in 3 days Anaerobic Blood Culture - Preliminary No growth in 3 days Imaging Studies: Impressions Videofluoroscopic Swallow 07/16/18 00:00 CONCLUSION: Penetration and aspiration with some of the thin liquids. Medications: Active Medications Generic Name Dose Route Start Last Admin Trade Name Freq PRN Reason Stop Dose Admin Aspirin 81 mg 07/14/18 09:00 07/16/18 09:05 Ecotrin PO 81 mg DAILY SUSIE Administration Carvedilol 3.125 mg 07/14/18 09:00 07/16/18 09:05 Coreg PO 3.125 mg BID SUSIE Administration Dexamethasone 4 mg 07/14/18 09:00 07/16/18 09:05 Decadron PO 4 mg BID SUSIE Administration Vancomycin HCl 1,000 mg/ 250 mls @ 250 mls/hr 07/13/18 22:00 07/13/18 23:41 Sodium Chloride IV.SIG Infused [employer] SUSIE Infusion Sodium Chloride 1,000 mls @ 50 mls/hr 07/14/18 17:30 07/16/18 11:00 Ns Inj IV.SIG Not Given .Q20H SUSIE Piperacillin/Tazobactam/Dextrose 50 mls @ 100 mls/hr 07/15/18 11:00 07/16/18 11:09 Zosyn 3.375 Gm Premix IV.SIG 100 mls/hr Q6H SUSIE Administration Levetiracetam 500 mg 07/14/18 09:00 07/16/18 09:05 Keppra PO 500 mg BID SUSIE Administration Morphine Sulfate 100 mg 07/14/18 14:00 07/16/18 05:25 Oramorph Sr PO 100 mg Q8HR SUSIE Administration Oxycodone HCl 30 mg 07/14/18 10:20 12/01/18 11:09 Roxicodone PO 30 mg Q4H PRN Administration BREAKTHROUGH PAIN Sennosides 17.2 mg 07/14/18 02:44 07/16/18 05:54 Senokot PO 17.2 mg Q12H PRN Administration Moderate Constipation Sodium Chloride 2 ml 07/14/18 09:00 07/16/18 09:05 Ns Flush IV.FLUSH 2 ml BID SUSIE Administration Objective Remarks: GENERAL: Chronically ill-appearing older male seen in bed in no acute distress SKIN: Warm and dry. HEAD: Normocephalic. EYES: No scleral icterus. No injection or drainage. NECK: Supple, trachea midline. No JVD or lymphadenopathy. CARDIOVASCULAR: +S1/S2. RESPIRATORY: Breath sounds diminished right lung base. GASTROINTESTINAL: Abdomen soft, non-tender, nondistended. EXTREMITIES: No cyanosis, or edema. MUSCULOSKELETAL: Adequate muscle tone. NEUROLOGICAL: No obvious focal deficit. Awake, alert, and oriented x3. Assessment/Plan - Plan 1. Metastatic small cell lung carcinoma. He presented with shortness of breath and constitutional symptoms. He was found to have a large right lower lobe mass obstructing the bronchus causing partial collapse of right lung. There were also multiple pleural and subpleural nodules in the right lung. He also found to have a brain metastasis. Bronchoscopy and biopsy of right lower lobe lung mass showed small cell lung carcinoma. He started carboplatin, etoposide 02/2018. He just completed fourth cycle on 06/17/2018. He was supposed to come to clinic yesterday for another cycle of chemotherapy, but he did not show up. We have ordered a CT scan, but again he did not get the CT scan done. During his last admission, a CT of the chest still showed right lung consolidation. Clinically, he has shortness of breath and cough. A chest x-ray showed persistent consolidation in the medial right lung. July 16: Continue antibiotics. Monitor respiratory status. 2. Brain metastasis. Initially, he had a small lesion and received stereotactic radiation in April. Recent MRI showed 2 other lesions, one in the frontal lobe and one in the left parietal lobe. He is supposed to see Dr. wolff for whole brain irradiation, but is unclear if he actually completed the radiation. He is still on Decadron. He has no new neurologic symptoms at this time. 3. Seizure disorder due to brain metastasis which has not recurred. 4. Chronic atrial fibrillation. 5. Recent aspiration pneumonia. 6. Chronic obstructive pulmonary disease. 7. Congestive heart failure with ejection fraction less than 25%. 8. Chronic pain. RECOMMENDATIONS: 1. Patient had swallow study that recommends thickened liquids. This is likely the cause of the aspiration pneumonia. 2. For now continue antibiotics 3. Continue supportive care - Attending Statement The exam, history, and the medical decision-making described in the above note were completed with the assistance of the mid-level provider. I reviewed and agree with the findings presented. I attest that I had a [id number] encounter with the patient on the same day, and personally performed and documented my assessment and findings in the medical record. Patient is feeling stronger. He is ambulating around the room. He had radiation yesterday. He denies any headache or focal weakness. He has no chest pain. He still has shortness of breath. He appeared to have aspiration pneumonia. He will continue antibiotics. Speech pathology has recommended thickened fluid. Continue supportive care. He will resume chemotherapy as outpatient.
--- NOTE | 2018-07-16 13:57 | P.PN ---
Subjective Interval history: feeling better up and ambualting- feels better when he is up and getting around had a good Bowel movement afebrile telemetry in a fib/fluter- rate variable 80s- 120s Physical Exam Vital signs: Vital Signs 07/15/18 20:00 07/15/18 21:00 07/15/18 22:00 Temperature 98.3 F Pulse Rate 110 H 99 H 98 H Respiratory Rate 22 Blood Pressure 121/69 Pulse Oximetry 97 07/15/18 23:00 07/16/18 00:00 07/16/18 00:15 Temperature 98.1 F Pulse Rate 105 H 87 Respiratory Rate 20 Blood Pressure 126/77 Pulse Oximetry 99 98 07/16/18 01:00 07/16/18 02:00 07/16/18 03:00 Temperature Pulse Rate 85 91 H 92 H Respiratory Rate Blood Pressure Pulse Oximetry 07/16/18 04:00 07/16/18 05:00 07/16/18 06:00 Temperature 97.9 F Pulse Rate 94 H 90 89 Respiratory Rate 20 Blood Pressure 141/87 H Pulse Oximetry 98 07/16/18 07:00 07/16/18 08:00 07/16/18 09:00 Temperature 97.7 F Pulse Rate 119 H 106 H 100 H Respiratory Rate 18 Blood Pressure 144/88 H Pulse Oximetry 100 07/16/18 10:00 07/16/18 11:20 07/16/18 12:00 Temperature 97.5 F L Pulse Rate 104 H 100 H 110 H Respiratory Rate 18 Blood Pressure 121/81 Pulse Oximetry 100 Intake & Output 07/15/18 07/16/18 07/16/18 18:59 06:59 18:59 Intake Total 520 / 520 580 / 580 50 / 50 Output Total 700 / 700 900 / 900 Balance -180 / -180 -320 / -320 50 / 50 Weight 49.5 kg Intake: IV 100 / 100 100 / 100 50 / 50 Zosyn 3.375 GM Premix 50 ML @ 100 / 100 100 / 100 50 / 50 100 mls/hr IV.SIG Q6H SUSIE Rx#: [id number] Oral 420 / 420 480 / 480 Output: Urine 700 / 700 900 / 900 Other: Date of Last Bowel Movement 07/14/18 07/15/18 # Bowel Movements 0 0 Narrative: GENERAL: Patient sitting up on edge of bed. Appears comfortable. SKIN: Warm and dry. HEAD: Normocephalic. EYES: No scleral icterus. No injection or drainage. NECK: Supple, trachea midline. No JVD CARDIOVASCULAR: Regular rate and rhythm without murmurs, gallops, or rubs. RESPIRATORY: CTA B/L. No accessory muscle use. GASTROINTESTINAL: Abdomen soft, non-tender, nondistended. MUSCULOSKELETAL: No cyanosis. Scab over left heath which patient says is chronic. No surrounding erythema. BACK: Nontender without obvious deformity. No CVA tenderness. Results - Labs CBC & Chem 7: 07/17/18 05:29 07/16/18 10:14 Laboratory Results - last 24 hr 07/16/18 07/16/18 10:14 10:14 WBC 14.6 H RBC 3.21 L Hgb 10.2 L Hct 30.3 L MCV 94.4 MCH 31.8 MCHC 33.7 RDW 24.0 H Plt Count 201 MPV 8.1 Sodium 130 L Potassium 4.0 Chloride 95 L Carbon Dioxide 26.4 Anion Gap 9 BUN 38 H Creatinine 1.01 Estimated GFR 75 L Random Glucose 144 H Calcium 8.7 D Microbiology 07/13/18 21:45 Blood - Peripheral Aerobic Blood Culture - Preliminary No growth in 3 days 07/13/18 21:45 Blood - Peripheral Anaerobic Blood Culture - Preliminary No growth in 3 days 07/13/18 21:50 Blood - Peripheral Aerobic Blood Culture - Preliminary No growth in 3 days 07/13/18 21:50 Blood - Peripheral Anaerobic Blood Culture - Preliminary No growth in 3 days - Imaging Impressions Videofluoroscopic Swallow 07/16/18 00:00 CONCLUSION: Penetration and aspiration with some of the thin liquids. Assessment and Plan - Plan Assessment/plan: 1. Pneumonia/COPD Chest x-ray significant for persistent consolidation in the medial right lung base Patient with recent history of aspiration pneumonia Vancomycin/Zosyn- change to po - Augmentin 875 mg po bid in am Blood cultures pending Patient with leukocytosis however is on systemic steroids 2. Acute renal failure- resolved HYponatremia Creatinine 2.41, baseline 0.6 Renal ultrasound pending Nephrology consulted, appreciate assistance- ALIS and diuretics discontinued gentle hydration - decreased IVF rate to 50 cc/hr ff BMP 3. 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 Herrera, appreciate assistance restart home pain meds regimen- Oramorph + Roxicodone 4. Atrial fibrillation/Flutter- rate RVR- 120s on telemetry Cardiomyopathy EF < 25 %- 06/23/2018 Per most recent discharge summary, patient cleared for baby aspirin for anticoagulation only -given metastatic disease to the brain Continue aspirin and Coreg BP too low to increase coreg- on admission Start amiodarone 400 mg po daily off Lasix and ALIS with JAEL given x 1 IV digoxin 07/15- no improvement Cardiology consult- previous admission was seen by Dr. Thomas 5. Bilateral calves pain- no pain today - doppler negative for DVT FEN Regular diet Electrolytes: Monitor and replete as needed SCDs
[2018-07-16] MEDS ORDERED: Amiodarone 200 MG Tablet PO SCH (14:15)
--- NOTE | 2018-07-17 01:33 | MB ---
cc: Dewayne Cox DO DATE: 07/16/2018 REASON FOR CONSULTATION: Atrial fibrillation. HISTORY OF PRESENT ILLNESS: Lorenzo Mendez is a pleasant 62-year-old male who presented to [facility] due to fatigue and weakness. He was supposed to get chemo and radiation, but felt too weak to do that. He has been having pain all over his body. He denies chest pain or shortness of breath. He has been unable to eat for the past week due to an inability to swallow the thickened liquids and feels like they get stuck in his throat. While here, he was noted to be in atrial fibrillation with rapid ventricular response with heart rates anywhere from 80-120 on admission. I was asked to see him to try to help with controlling his heart rates. On arrival, his blood pressure was also low at 70/55 and this continued for about 24 hours and so medications were not able to be given for his atrial fibrillation. In seeing him, he is hemodynamically stable without chest pain or shortness of breath. PAST MEDICAL HISTORY: 1. Metastatic small cell lung cancer with brain metastasis. 2. Seizure disorder. 3. Atrial fibrillation. 4. Recent hospitalization requiring intubation for aspiration pneumonia. 5. Chronic obstructive pulmonary disease. 6. Congestive heart failure with an ejection fraction of less than 25%. 7. Osteomyelitis. PAST SURGICAL HISTORY: 1. Port-A-Cath placement. 2. Hernia repair. ALLERGIES: NO KNOWN DRUG ALLERGIES. MEDICATIONS: 1. Oxycodone 30 mg as needed. 2. Morphine 100 mg extended release every 8 hours. 3. Clonidine 0.1 mg every 12 hours. 4. Amiodarone 400 mg daily. 5. Keppra 500 mg every 12 hours. 6. Coreg 3.125 mg b.i.d. 7. Lisinopril 2.5 mg daily. FAMILY HISTORY: Denies premature coronary artery disease or sudden cardiac within the family. SOCIAL HISTORY: The patient is a former smoker. Denies alcohol or drug abuse. REVIEW OF SYSTEMS: Fourteen systems were reviewed including osteopathic. Pertinent positives and negatives above, otherwise negative. PHYSICAL EXAMINATION: VITAL SIGNS: Temperature 98.0, heart rate 86, blood pressure 142/84, respirations 20, pulse oximetry 100% on room air. GENERAL: The patient appears older than stated age. Alert, awake and oriented x3. HEENT: Extraocular muscles intact. Mucous membranes moist. NECK: Supple. No JVD at 45 degrees. No carotid bruits heard bilaterally. Carotid upstroke is brisk in nature. HEART: Irregularly irregular. Positive first and second heart sounds with no noted murmurs, gallops or rubs. LUNGS: Clear to auscultation bilaterally. No wheezes, rales or rhonchi. ABDOMEN: Soft, nontender, nondistended. No organomegaly noted. EXTREMITIES: Show no clubbing, cyanosis, or edema. Femoral and distal pulses are intact bilaterally. NEUROLOGIC: No focal deficits. SKIN: Warm, dry and intact. OSTEOPATHIC: No kyphoscoliosis, lordosis or paraspinal tender points. LABORATORY DATA: Hemoglobin 10.2, hematocrit 30.3, platelets 201. Potassium 4.0, BUN 38, creatinine 1.01. IMPRESSION: 1. Atrial fibrillation with rapid ventricular response on her admission. 2. Acute renal failure with dehydration due to decrease oral intake. 3. Chronic obstructive pulmonary disease. 4. Small cell lung cancer with brain metastasis, currently on chemotherapy and radiation. 5. Seizure disorder. 6. Chronic systolic heart failure with an ejection fraction less than 25%. RECOMMENDATIONS: 1. Mr. Mendez presented with hypotension and atrial fibrillation with rapid ventricular response, most likely due to poor oral intake due to inability to swallow thickened liquids. 2. Since that time, he has been placed back on his carvedilol and we will plan on increasing this to 6.25 mg b.i.d. to further control his heart rate as he has blood pressure well within the normal range to increase it. This will overall help with his cardiomyopathy. 3. He is not an anticoagulation candidate due to metastasis to the brain, so we will continue him on aspirin 81 mg daily. 4. As far as his congestive heart failure goes, he will continue on carvedilol. If blood pressure would allow it, we will consider adding lisinopril, although we will have to be careful as he did come in with an acute kidney injury and if his oral intake continues to be low, this could happen again. 5. If difficulty with heart rates further and unable to increase carvedilol due to blood pressure, would consider using digoxin, although once again, we would have to be careful with his acute kidney injury. Ultimately, I would try not to place him on amiodarone alf due to the ramifications from a pulmonary standpoint. 6. Further recommendations will be made based on the hospital course. Thank you for allowing me to see Lorenzo Mendez. If there are any questions, please do not hesitate to call. Dewayne Cox DO VGP/sv , 09:47 PM , 09:59 PM
[2018-07-17] MEDS: Piperacil/Tazo 3.375 GM Premix 50 ML IV.SIG SCH ×2 (04:14→12:46)
[2018-07-17] MEDS: Sod Chloride 0.9% Inj 1,000 ML IV.SIG SCH (05:49)
[2018-07-17] MEDS: Morphine Sulfate 100 MG SR Tablet PO SCH ×3 (05:49→21:34)
[2018-07-17 06:12] LABS: Baso % (Auto) 0.1 % (0.0-2.0); Hematocrit 27.3 % (39.0-51.0); Hemoglobin 9.3 gm/dL (13.0-17.0); Lymph # (Auto) 0.6 th/mm3 (1.0-4.8); Lymph % (Auto) 4.2 % (9.0-44.0); Mean Corpuscular Hemoglobin 32.2 pg (27.0-34.0); Mean Corpuscular Volume 94.7 fL (80.0-100.0); Mono # (Auto) 0.4 th/mm3 (0.0-0.9); Mono % (Auto) 2.9 % (0.0-8.0); Neut # (Auto) 13.7 th/mm3 (1.8-7.7); Neut % (Auto) 92.8 % (16.0-70.0); Platelet Count 172 th/mm3 (150-450); Red Blood Count 2.89 mil/mm3 (4.50-5.90); Red Cell Distribution Width 23.9 % (11.6-17.2); White Blood Count 14.8 th/mm3 (4.0-11.0)
[2018-07-17] MEDS: Carvedilol 6.25 MG Tablet PO SCH ×2 (09:45→20:17)
[2018-07-17] MEDS: levETIRAcetam 500 MG Tablet PO SCH ×2 (09:45→20:18)
--- NOTE | 2018-07-17 11:08 | P.PNONC ---
Subjective Interval history: Afebrile Patient reports he is shaking because he is not received his pain meds Refusing to use thickened liquids States "I will make it myself. I cannot drink that thickened stuff" Objective Vital Signs/Intake & Output: Vital Signs 07/16/18 11:20 07/16/18 12:00 07/16/18 13:00 Temperature 97.5 F L Pulse Rate 100 H 110 H 110 H Respiratory Rate 18 Blood Pressure 121/81 Pulse Oximetry 100 07/16/18 14:00 07/16/18 15:00 07/16/18 15:24 Temperature 97.3 F L Pulse Rate 100 H 102 H 100 H Respiratory Rate 22 Blood Pressure 111/82 Pulse Oximetry 100 07/16/18 15:56 07/16/18 16:00 07/16/18 17:00 Temperature Pulse Rate 86 87 Respiratory Rate Blood Pressure Pulse Oximetry 97 07/16/18 18:00 07/16/18 19:00 07/16/18 20:00 Temperature 98 F Pulse Rate 96 H 91 H 86 Respiratory Rate 20 Blood Pressure 142/84 H Pulse Oximetry 100 07/16/18 20:05 07/16/18 21:00 07/16/18 22:00 Temperature Pulse Rate 92 H 84 Respiratory Rate Blood Pressure Pulse Oximetry 97 07/16/18 23:00 07/17/18 00:00 07/17/18 01:00 Temperature 98.2 F Pulse Rate 88 79 87 Respiratory Rate 19 Blood Pressure 114/64 Pulse Oximetry 99 07/17/18 02:00 07/17/18 03:00 07/17/18 03:59 Temperature Pulse Rate 83 86 85 Respiratory Rate Blood Pressure Pulse Oximetry 07/17/18 04:00 07/17/18 05:00 07/17/18 06:00 Temperature 98.1 F Pulse Rate 85 83 79 Respiratory Rate 18 Blood Pressure 137/70 Pulse Oximetry 99 07/17/18 07:00 07/17/18 08:00 07/17/18 09:00 Temperature 97.9 F Pulse Rate 90 101 H 100 H Respiratory Rate 18 Blood Pressure 122/79 Pulse Oximetry 99 07/17/18 10:00 07/17/18 10:48 Temperature Pulse Rate 98 H 90 Respiratory Rate Blood Pressure Pulse Oximetry Intake & Output 12/01/18 12/02/18 12/02/18 18:59 06:59 18:59 Intake Total 1060 / 1060 580 / 580 Output Total 750 / 750 900 / 900 Balance 310 / 310 -320 / -320 Weight 110 lb 0.171 oz Intake: IV 100 / 100 100 / 100 Zosyn 3.375 GM Premix 50 ML @ 100 / 100 100 / 100 100 mls/hr IV.SIG Q6H SUSIE Rx#: [id number] Oral 960 / 960 480 / 480 Output: Urine 750 / 750 900 / 900 Other: Date of Last Bowel Movement 07/15/18 07/15/18 07/15/18 # Bowel Movements 0 Result Diagrams: 07/17/18 05:29 07/16/18 10:14 Laboratory Results: Laboratory Results - last 24 hr 07/16/18 07/17/18 10:14 05:29 WBC 14.8 H RBC 2.89 L Hgb 9.3 L Hct 27.3 L MCV 94.7 MCH 32.2 MCHC 34.0 RDW 23.9 H Plt Count 172 MPV 8.0 Neut % (Auto) 92.8 H Lymph % (Auto) 4.2 L Fountain % (Auto) 2.9 Eos % (Auto) 0.0 Baso % (Auto) 0.1 Neut # (Auto) 13.7 H Lymph # (Auto) 0.6 L Fountain # (Auto) 0.4 Eos # (Auto) 0.0 Baso # (Auto) 0.0 WBC Differential . Differential Comment Auto diff final Sodium 130 L Potassium 4.0 Chloride 95 L Carbon Dioxide 26.4 Anion Gap 9 BUN 38 H Creatinine 1.01 Estimated GFR 75 L Random Glucose 144 H Calcium 8.7 D Culture Results: Microbiology 07/13/18 21:45 Aerobic Blood Culture - Preliminary Blood - Peripheral No growth in 4 days Anaerobic Blood Culture - Preliminary No growth in 4 days 07/13/18 21:50 Aerobic Blood Culture - Preliminary Blood - Peripheral No growth in 4 days Anaerobic Blood Culture - Preliminary No growth in 4 days Medications: Active Medications Generic Name Dose Route Start Last Admin Trade Name Freq PRN Reason Stop Dose Admin Aspirin 81 mg 07/14/18 09:00 07/17/18 09:45 Ecotrin PO 81 mg DAILY SUSIE Administration Carvedilol 6.25 mg 07/17/18 09:00 07/17/18 09:45 Coreg PO 6.25 mg BID SUSIE Administration Dexamethasone 4 mg 07/14/18 09:00 07/17/18 09:45 Decadron PO 4 mg BID SUSIE Administration Vancomycin HCl 1,000 mg/ 250 mls @ 250 mls/hr 07/13/18 22:00 07/13/18 23:41 Sodium Chloride IV.SIG Infused [employer] SUSIE Infusion Sodium Chloride 1,000 mls @ 50 mls/hr 07/14/18 17:30 07/17/18 05:49 Ns Inj IV.SIG Not Given .Q20H SUSIE Piperacillin/Tazobactam/Dextrose 50 mls @ 100 mls/hr 07/15/18 11:00 07/17/18 05:19 Zosyn 3.375 Gm Premix IV.SIG Infused Q6H SUSIE Infusion Levetiracetam 500 mg 07/14/18 09:00 07/17/18 09:45 Keppra PO 500 mg BID SUSIE Administration Morphine Sulfate 100 mg 07/14/18 14:00 07/17/18 05:49 Oramorph Sr PO 100 mg Q8HR SUSIE Administration Oxycodone HCl 30 mg 07/14/18 10:20 07/16/18 20:17 Roxicodone PO 30 mg Q4H PRN Administration BREAKTHROUGH PAIN Sennosides 17.2 mg 07/14/18 02:44 07/17/18 05:49 Senokot PO 17.2 mg Q12H PRN Administration Moderate Constipation Sodium Chloride 2 ml 07/14/18 09:00 07/17/18 09:45 Ns Flush IV.FLUSH 2 ml BID SUSIE Administration Objective Remarks: GENERAL: Chronically ill-appearing older male seen in bed in no acute distress SKIN: Warm and dry. HEAD: Normocephalic. EYES: No scleral icterus. No injection or drainage. NECK: Supple, trachea midline. No JVD or lymphadenopathy. CARDIOVASCULAR: +S1/S2. Irregular rhythm RESPIRATORY: Breath sounds diminished right lung base. GASTROINTESTINAL: Abdomen soft, non-tender, nondistended. EXTREMITIES: No cyanosis, or edema. MUSCULOSKELETAL: Adequate muscle tone. NEUROLOGICAL: No obvious focal deficit. Awake, alert, and oriented x3. Assessment/Plan - Plan 1. Metastatic small cell lung carcinoma. He presented with shortness of breath and constitutional symptoms. He was found to have a large right lower lobe mass obstructing the bronchus causing partial collapse of right lung. There were also multiple pleural and subpleural nodules in the right lung. He also found to have a brain metastasis. Bronchoscopy and biopsy of right lower lobe lung mass showed small cell lung carcinoma. He started carboplatin, etoposide 02/2018. He just completed fourth cycle on 06/17/2018. He was supposed to come to clinic yesterday for another cycle of chemotherapy, but he did not show up. We have ordered a CT scan, but again he did not get the CT scan done. During his last admission, a CT of the chest still showed right lung consolidation. Clinically, he has shortness of breath and cough. A chest x-ray showed persistent consolidation in the medial right lung. July 17: Continue antibiotics. Monitor respiratory status. 2. Brain metastasis. Initially, he had a small lesion and received stereotactic radiation in April. Recent MRI showed 2 other lesions, one in the frontal lobe and one in the left parietal lobe. He is supposed to see Dr. wolff for whole brain irradiation, but is unclear if he actually completed the radiation. He is still on Decadron. He has no new neurologic symptoms at this time. 3. Seizure disorder due to brain metastasis which has not recurred. 4. Chronic atrial fibrillation. 5. Recent aspiration pneumonia. 6. Chronic obstructive pulmonary disease. 7. Congestive heart failure with ejection fraction less than 25%. 8. Chronic pain. RECOMMENDATIONS: 1. Discussed with patient he will likely to continue to aspirate if he does not use thickened liquids. He is not interested in hearing this at this time. 2. Continue antibiotics until completion. 3. Continue supportive care - Attending Statement The exam, history, and the medical decision-making described in the above note were completed with the assistance of the mid-level provider. I reviewed and agree with the findings presented. I attest that I had a [id number] encounter with the patient on the same day, and personally performed and documented my assessment and findings in the medical record. Patient walking around in the room. He is now wearing his oxygen and appears comfortable. He however stated that he has shortness of breath. He has no chest pain. He denies any headache or focal weakness. I told him he should drink thickened fluids per speech therapy recommendation to decrease risk of getting aspiration pneumonia. He will continue brain radiation with radiation oncology. He will restart chemotherapy once is done with the radiation. He can be discharged from oncology standpoint when stable.
--- NOTE | 2018-07-17 12:38 | P.PNCA ---
Subjective Interval history: No chest pain, SOB stable Up and walking the room His biggest concern is the thickened liquids Medications and Allergies Active Medications: Active Medications Acetaminophen (Tylenol) 650 mg PO Q4H PRN PRN Reason: Temp > 100.4 Aspirin (Ecotrin) 81 mg PO DAILY [facility] Last Admin: 07/17/18 09:45 Dose: 81 mg Bisacodyl (Dulcolax Supp) 10 mg RECTAL DAILY PRN PRN Reason: SEVERE CONSITIPATION Carvedilol (Coreg) 6.25 mg PO BID [facility] Last Admin: 07/17/18 09:45 Dose: 6.25 mg Dexamethasone (Decadron) 4 mg PO BID [facility] Last Admin: 07/17/18 09:45 Dose: 4 mg Vancomycin HCl 1,000 mg/ (Sodium Chloride) 250 mls @ 250 mls/hr 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 [facility] Last Infusion: 07/13/18 23:41 Dose: Infused Sodium Chloride (Ns Inj) 1,000 mls @ 50 mls/hr IV.SIG .Q20H [facility] Last Admin: 07/17/18 05:49 Dose: Not Given Piperacillin/Tazobactam/Dextrose (Zosyn 3.375 Gm Premix) 50 mls @ 100 mls/hr IV.SIG Q6H [facility] Last Infusion: 07/17/18 05:19 Dose: Infused Levetiracetam (Keppra) 500 mg PO BID [facility] Last Admin: 07/17/18 09:45 Dose: 500 mg Morphine Sulfate (Oramorph Sr) 100 mg PO Q8HR [facility] Last Admin: 07/17/18 05:49 Dose: 100 mg Oxycodone HCl (Roxicodone) 30 mg PO Q4H PRN PRN Reason: BREAKTHROUGH PAIN Last Admin: 07/16/18 20:17 Dose: 30 mg Prochlorperazine (Compazine Supp) 25 mg RECTAL Q12HR PRN PRN Reason: NAUSEA OR VOMITING Sennosides (Senokot) 17.2 mg PO Q12H PRN PRN Reason: Moderate Constipation Last Admin: 07/17/18 05:49 Dose: 17.2 mg Sodium Chloride (Ns Flush) 2 ml IV.FLUSH BID [facility] Last Admin: 07/17/18 09:45 Dose: 2 ml Sodium Chloride (Ns Flush) 2 ml IV.FLUSH PRN PRN PRN Reason: FLUSH AFTER USING IV ACCESS Allergies Allergy/AdvReac Type Severity Reaction Status Date / Time No Known Allergies Allergy Verified 07/13/18 18:57 Home Medications Medication Instructions Recorded Confirmed Type docusate sodium 100 mg PO BID 03/03/18 07/14/18 History morphine [MS Contin] 100 mg PO Q8H 03/03/18 07/14/18 History oxycodone 30 mg PO Q4-6H PRN MDD 2.5 tablets 03/03/18 07/14/18 History Physical Exam Vital signs: Vital Signs 07/16/18 13:00 07/16/18 14:00 07/16/18 15:00 Temperature Pulse Rate 110 H 100 H 102 H Respiratory Rate Blood Pressure Pulse Oximetry 07/16/18 15:24 07/16/18 15:56 07/16/18 16:00 Temperature 97.3 F L Pulse Rate 100 H 86 Respiratory Rate 22 Blood Pressure 111/82 Pulse Oximetry 100 97 07/16/18 17:00 07/16/18 18:00 07/16/18 19:00 Temperature Pulse Rate 87 96 H 91 H Respiratory Rate Blood Pressure Pulse Oximetry 07/16/18 20:00 07/16/18 20:05 07/16/18 21:00 Temperature 98 F Pulse Rate 86 92 H Respiratory Rate 20 Blood Pressure 142/84 H Pulse Oximetry 100 97 07/16/18 22:00 07/16/18 23:00 07/17/18 00:00 Temperature 98.2 F Pulse Rate 84 88 79 Respiratory Rate 19 Blood Pressure 114/64 Pulse Oximetry 99 07/17/18 01:00 07/17/18 02:00 07/17/18 03:00 Temperature Pulse Rate 87 83 86 Respiratory Rate Blood Pressure Pulse Oximetry 07/17/18 03:59 07/17/18 04:00 07/17/18 05:00 Temperature 98.1 F Pulse Rate 85 85 83 Respiratory Rate 18 Blood Pressure 137/70 Pulse Oximetry 99 07/17/18 06:00 07/17/18 07:00 07/17/18 08:00 Temperature 97.9 F Pulse Rate 79 90 101 H Respiratory Rate 18 Blood Pressure 122/79 Pulse Oximetry 99 07/17/18 09:00 07/17/18 10:00 07/17/18 10:48 Temperature Pulse Rate 100 H 98 H 90 Respiratory Rate Blood Pressure Pulse Oximetry Intake & Output 07/16/18 07/17/18 07/17/18 18:59 06:59 18:59 Intake Total 1060 / 1060 580 / 580 Output Total 750 / 750 900 / 900 Balance 310 / 310 -320 / -320 Weight 49.9 kg Intake: IV 100 / 100 100 / 100 Zosyn 3.375 GM Premix 50 ML @ 100 / 100 100 / 100 100 mls/hr IV.SIG Q6H [facility] Rx#: [id number] Oral 960 / 960 480 / 480 Output: Urine 750 / 750 900 / 900 Other: Date of Last Bowel Movement 07/15/18 07/15/18 07/15/18 # Bowel Movements 0 Narrative: GENERAL: Patient sitting up on edge of bed. Appears comfortable. SKIN: Warm and dry. HEAD: Normocephalic. EYES: No scleral icterus. No injection or drainage. NECK: Supple, trachea midline. No JVD CARDIOVASCULAR: Regular rate and rhythm without murmurs, gallops, or rubs. RESPIRATORY: CTA B/L. No accessory muscle use. GASTROINTESTINAL: Abdomen soft, non-tender, nondistended. MUSCULOSKELETAL: No cyanosis. Scab over left heath which patient says is chronic. No surrounding erythema. BACK: Nontender without obvious deformity. No CVA tenderness. Results 07/17/18 05:29 07/16/18 10:14 CBC 07/16/18 07/17/18 Range/Units 10:14 05:29 WBC 14.6 H 14.8 H (4.0-11.0) th/mm3 RBC 3.21 L 2.89 L (4.50-5.90) mil/mm3 Hgb 10.2 L 9.3 L (13.0-17.0) gm/dL Hct 30.3 L 27.3 L (39.0-51.0) % Plt Count 201 172 (150-450) th/mm3 Neut # (Auto) 13.7 H (1.8-7.7) th/mm3 Lymph # (Auto) 0.6 L (1.0-4.8) th/mm3 [place] # (Auto) 0.4 (0.0-0.9) th/mm3 Eos # (Auto) 0.0 (0.0-0.4) th/mm3 Baso # (Auto) 0.0 (0.0-0.2) th/mm3 Comprehensive Metabolic Panel 07/16/18 Range/Units 10:14 Sodium 130 L (136-145) meq/L Potassium 4.0 (3.5-5.1) meq/L Chloride 95 L (98-107) meq/L Carbon Dioxide 26.4 (21.0-32.0) meq/L BUN 38 H (7-18) mg/dL Creatinine 1.01 (0.60-1.30) mg/dL Calcium 8.7 D (8.5-10.1) mg/dL Intake and Output 07/16/18 07/17/18 07/17/18 22:59 06:59 14:59 Intake Total 1010 / 1010 580 / 580 Output Total 750 / 750 900 / 900 Balance 260 / 260 -320 / -320 Intake: IV 50 / 50 100 / 100 Zosyn 3.375 GM Premix 50 ML @ 50 / 50 100 / 100 100 mls/hr IV.SIG Q6H [facility] Rx#: [id number] Oral 960 / 960 480 / 480 Output: Urine 750 / 750 900 / 900 Other: Date of Last Bowel Movement 07/15/18 07/15/18 # Bowel Movements 0 Weight 49.9 kg - Imaging and Cardiology Imaging: Impressions Videofluoroscopic Swallow 07/16/18 00:00 CONCLUSION: Penetration and aspiration with some of the thin liquids. Assessment and Plan - Assessment (1) Atrial fibrillation with RVR Code(s): I48.91 - Unspecified atrial fibrillation Status: Acute (2) Acute hypotension Code(s): I95.9 - Hypotension, unspecified Status: Acute (3) Mass of lung Code(s): R91.8 - Other nonspecific abnormal finding of lung field Status: Chronic (4) Pneumonia Code(s): J18.9 - Pneumonia, unspecified organism Status: Acute (5) Metastatic lung carcinoma Code(s): C78.00 - Secondary malignant neoplasm of unspecified lung Status: Acute (6) Pain Code(s): R52 - Pain, unspecified Status: Chronic (7) Shortness of breath Code(s): R06.02 - Shortness of breath Status: Acute (8) Cardiomyopathy Code(s): I42.9 - Cardiomyopathy, unspecified Status: Chronic (9) Brain metastases Code(s): C79.31 - Secondary malignant neoplasm of brain Status: Acute (10) Recurrent aspiration pneumonia Code(s): J69.0 - Pneumonitis due to inhalation of food and vomit Status: Acute (11) CHF (congestive heart failure) Code(s): I50.9 - Heart failure, unspecified Status: Acute - Plan 1) AFib with RVR and hypotension Most likely due to dehydration from poor oral intake Blood pressure better, hearts better controlled Con't Coreg at 6.25mg BID Would attempt to use BB for heart rate control With cardiomyopathy, should avoid CCB Concern for Amiodarone assisted Concern with Digoxin is high risk for dehydration with poor oral intake Not an anticoagulation candidate, ok for ASA 81mg daily Due to brain metastasis 2) Cardiomyopathy Not an invasive candidate due to brain metastasis Continue medical management Most likely only Coreg Concern for starting ALIS-I due to high risk for dehydration with poor oral intake at home 3) Dysphagia Unwilling to take thickened liquids High risk for continued dehydration vs aspiration (4) Pneumonia Qualifiers: Pneumonia type: due to unspecified organism Laterality: right Lung location : lower lobe of lung Qualified Code(s): J18.1 - Lobar pneumonia, unspecified organism (5) Metastatic lung carcinoma Qualifiers: Laterality: right Qualified Code(s): C78.01 - Secondary malignant neoplasm of right lung (8) Cardiomyopathy Qualifiers: Cardiomyopathy type: unspecified Qualified Code(s): I42.9 - Cardiomyopathy, unspecified
--- NOTE | 2018-07-17 12:46 | P.PN ---
Subjective Interval history: patient up and ambulating sick and tired of the thickened liquid stuff no other complains Physical Exam Vital signs: Vital Signs 07/16/18 13:00 07/16/18 14:00 07/16/18 15:00 Temperature Pulse Rate 110 H 100 H 102 H Respiratory Rate Blood Pressure Pulse Oximetry 07/16/18 15:24 07/16/18 15:56 07/16/18 16:00 Temperature 97.3 F L Pulse Rate 100 H 86 Respiratory Rate 22 Blood Pressure 111/82 Pulse Oximetry 100 97 07/16/18 17:00 07/16/18 18:00 07/16/18 19:00 Temperature Pulse Rate 87 96 H 91 H Respiratory Rate Blood Pressure Pulse Oximetry 07/16/18 20:00 07/16/18 20:05 07/16/18 21:00 Temperature 98 F Pulse Rate 86 92 H Respiratory Rate 20 Blood Pressure 142/84 H Pulse Oximetry 100 97 07/16/18 22:00 07/16/18 23:00 07/17/18 00:00 Temperature 98.2 F Pulse Rate 84 88 79 Respiratory Rate 19 Blood Pressure 114/64 Pulse Oximetry 99 07/17/18 01:00 07/17/18 02:00 07/17/18 03:00 Temperature Pulse Rate 87 83 86 Respiratory Rate Blood Pressure Pulse Oximetry 07/17/18 03:59 07/17/18 04:00 07/17/18 05:00 Temperature 98.1 F Pulse Rate 85 85 83 Respiratory Rate 18 Blood Pressure 137/70 Pulse Oximetry 99 07/17/18 06:00 07/17/18 07:00 07/17/18 08:00 Temperature 97.9 F Pulse Rate 79 90 101 H Respiratory Rate 18 Blood Pressure 122/79 Pulse Oximetry 99 07/17/18 09:00 07/17/18 10:00 07/17/18 10:48 Temperature Pulse Rate 100 H 98 H 90 Respiratory Rate Blood Pressure Pulse Oximetry Intake & Output 07/16/18 07/17/18 07/17/18 18:59 06:59 18:59 Intake Total 1060 / 1060 580 / 580 Output Total 750 / 750 900 / 900 Balance 310 / 310 -320 / -320 Weight 49.9 kg Intake: IV 100 / 100 100 / 100 Zosyn 3.375 GM Premix 50 ML @ 100 / 100 100 / 100 100 mls/hr IV.SIG Q6H [facility] Rx#: [id number] Oral 960 / 960 480 / 480 Output: Urine 750 / 750 900 / 900 Other: Date of Last Bowel Movement 07/15/18 07/15/18 07/15/18 # Bowel Movements 0 Narrative: awake and alert, oriented x 3 anciteric neck supole decreased breath sounds, no rales irregularly irregular rhythm abdomen soft extremities = + trace edema- non tender Results - Labs CBC & Chem 7: 07/17/18 05:29 07/16/18 10:14 Laboratory Results - last 24 hr 07/17/18 05:29 WBC 14.8 H RBC 2.89 L Hgb 9.3 L Hct 27.3 L MCV 94.7 MCH 32.2 MCHC 34.0 RDW 23.9 H Plt Count 172 MPV 8.0 Neut % (Auto) 92.8 H Lymph % (Auto) 4.2 L [place] % (Auto) 2.9 Eos % (Auto) 0.0 Baso % (Auto) 0.1 Neut # (Auto) 13.7 H Lymph # (Auto) 0.6 L [place] # (Auto) 0.4 Eos # (Auto) 0.0 Baso # (Auto) 0.0 WBC Differential . Differential Comment Auto diff final Microbiology 07/13/18 21:45 Blood - Peripheral Aerobic Blood Culture - Preliminary No growth in 4 days 07/13/18 21:45 Blood - Peripheral Anaerobic Blood Culture - Preliminary No growth in 4 days 07/13/18 21:50 Blood - Peripheral Aerobic Blood Culture - Preliminary No growth in 4 days 07/13/18 21:50 Blood - Peripheral Anaerobic Blood Culture - Preliminary No growth in 4 days Assessment and Plan - Plan Assessment/plan: 1. Pneumonia/COPD Chest x-ray significant for persistent consolidation in the medial right lung base Patient with recent history of aspiration pneumonia Vancomycin/Zosyn- change to po - Augmentin 875 mg po bid Blood cultures negative Patient with leukocytosis however is on systemic steroids 2. Acute renal failure- resolved HYponatremia Creatinine 2.41, baseline 0.6 Renal ultrasound pending Nephrology consulted, appreciate assistance- ALIS and diuretics discontinued gentle hydration - decreased IVF rate to 50 cc/hr ff BMP 3. 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 Herrera, appreciate assistance restart home pain meds regimen- Oramorph + Roxicodone 4. Atrial fibrillation/Flutter- rate beter 90ss Cardiomyopathy EF < 25 %- 06/23/2018 Per most recent discharge summary, patient cleared for baby aspirin for anticoagulation only -given metastatic disease to the brain Continue aspirin and Coreg- increase to 6.25 mg po bid today 07/17 Dr. forbes ff off Lasix and ALIS with JAEL given x 1 IV digoxin 07/15- no improvement Cardiology consult- previous admission was seen by Dr. Thmoas 5. Bilateral calves pain- no pain today - doppler negative for DVT FEN Regular diet Electrolytes: Monitor and replete as needed SCDs
[2018-07-17] MEDS: Amoxicillin/Clavulanate 875/125 MG Tablet PO SCH (20:18)
[2018-07-18] MEDS: Sod Chloride 0.9% Inj 1,000 ML IV.SIG SCH (01:11)
[2018-07-18] MEDS: Morphine Sulfate 100 MG SR Tablet PO SCH ×3 (05:20→20:57)
[2018-07-18] MEDS: Amoxicillin/Clavulanate 875/125 MG Tablet PO SCH ×2 (08:48→20:57)
[2018-07-18] MEDS: levETIRAcetam 500 MG Tablet PO SCH ×2 (08:48→20:57)
[2018-07-18] MEDS: Carvedilol 6.25 MG Tablet PO SCH (08:49)
[2018-07-18] MEDS ORDERED: Heparin Central Flush 100 UNIT/ML 5 ML Vial IV.FLUSH PRN ×2 (10:33)
--- NOTE | 2018-07-18 14:26 | P.PN ---
Subjective Interval history: complaisn of pain- states he takes his Oramorph tid not q 8 telemetry- a fib- rate elevated- due to pain up and ambulating - + pain Physical Exam Vital signs: Vital Signs 07/17/18 16:00 07/17/18 16:49 07/17/18 17:00 Temperature 98.6 F Pulse Rate 96 H 102 H Respiratory Rate 18 20 Blood Pressure 149/93 H Pulse Oximetry 99 07/17/18 17:47 07/17/18 19:00 07/17/18 20:00 Temperature 98.2 F Pulse Rate 100 H 100 H 94 H Respiratory Rate 18 Blood Pressure 154/97 H Pulse Oximetry 98 07/17/18 21:00 07/17/18 21:56 07/17/18 22:00 Temperature Pulse Rate 94 H 94 H Respiratory Rate Blood Pressure Pulse Oximetry 98 07/17/18 23:00 07/18/18 00:00 07/18/18 01:00 Temperature 98.1 F Pulse Rate 98 H 97 H 111 H Respiratory Rate 20 Blood Pressure 124/84 Pulse Oximetry 97 07/18/18 02:00 07/18/18 03:00 07/18/18 03:53 Temperature 99 F Pulse Rate 105 H 98 H 108 H Respiratory Rate 20 Blood Pressure 165/98 H Pulse Oximetry 97 07/18/18 03:57 07/18/18 05:00 07/18/18 05:43 Temperature Pulse Rate 108 H 100 H 102 H Respiratory Rate Blood Pressure Pulse Oximetry 07/18/18 07:00 07/18/18 08:00 07/18/18 08:10 Temperature 97.8 F Pulse Rate 106 H 112 H Respiratory Rate 20 18 Blood Pressure 156/97 H Pulse Oximetry 98 07/18/18 09:00 07/18/18 09:22 07/18/18 10:00 Temperature Pulse Rate 112 H 104 H Respiratory Rate Blood Pressure Pulse Oximetry 97 07/18/18 11:00 07/18/18 12:00 07/18/18 13:00 Temperature 97.9 F Pulse Rate 96 H 114 H 106 H Respiratory Rate 20 Blood Pressure 152/98 H Pulse Oximetry 99 Intake & Output 07/17/18 07/18/18 07/18/18 18:59 06:59 18:59 Intake Total 2330 / 2330 1900 / 1900 Output Total 1600 / 1600 950 / 950 Balance 730 / 730 950 / 950 Weight 49.5 kg Intake: IV 50 / 50 1000 / 1000 Zosyn 3.375 GM Premix 50 ML @ 50 / 50 100 mls/hr IV.SIG Q6H [facility] Rx#: [id number] NS Inj 1,000 ML @ 50 mls/hr IV. 1000 / 1000 SIG .Q20H [facility] Rx#:[id number] Oral 2280 / 2280 900 / 900 Output: Urine 1600 / 1600 950 / 950 Other: Date of Last Bowel Movement 07/17/18 07/15/18 07/18/18 # Bowel Movements 1 0 Narrative: awake and alert, oriented x 3 anciteric neck supole decreased breath sounds, no rales irregularly irregular rhythm abdomen soft extremities = + trace edema- non tender Results - Labs CBC & Chem 7: 07/17/18 05:29 07/16/18 10:14 Microbiology 07/13/18 21:45 Blood - Peripheral Aerobic Blood Culture - Final No growth in 5 days 07/13/18 21:45 Blood - Peripheral Anaerobic Blood Culture - Final No growth in 5 days 07/13/18 21:50 Blood - Peripheral Aerobic Blood Culture - Final No growth in 5 days 07/13/18 21:50 Blood - Peripheral Anaerobic Blood Culture - Final No growth in 5 days Assessment and Plan - Plan Assessment/plan: 1. Pneumonia/COPD Chest x-ray significant for persistent consolidation in the medial right lung base Patient with recent history of aspiration pneumonia Vancomycin/Zosyn- changed to po - Augmentin 875 mg po bid 07/17 Blood cultures negative Patient with leukocytosis however is on systemic steroids 2. Acute renal failure- resolved HYponatremia Creatinine 2.41, baseline 0.6 Renal ultrasound pending Nephrology consulted, appreciate assistance- ALIS and diuretics discontinued gentle hydration - decreased IVF rate to 50 cc/hr ff BMP 3. 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 Herrera, appreciate assistance restart home pain meds regimen- Oramorph- change to 100 mg tid + Roxicodone 4. Atrial fibrillation/Flutter- rate beter 90ss Cardiomyopathy EF < 25 %- 06/23/2018 Per most recent discharge summary, patient cleared for baby aspirin for anticoagulation only -given metastatic disease to the brain Continue aspirin and Coreg-increase to .[address] Cox ff off Lasix and ALIS with JAEL given x 1 IV digoxin 07/15- no improvement Cardiology consult- previous admission was seen by Dr. Thomas 5. Bilateral calves pain- no pain today - doppler negative for DVT FEN Regular diet Electrolytes: Monitor and replete as needed SCDs
--- NOTE | 2018-07-18 15:16 | P.PNCA ---
Subjective Interval history: No events overnight In pain, heart rates up Medications and Allergies Active Medications: Active Medications Acetaminophen (Tylenol) 650 mg PO Q4H PRN PRN Reason: Temp > 100.4 Amoxicillin/Clavulanate Potassium (Augmentin 875/125 Mg) 1 tab PO Q12HR [facility] Last Admin: 07/18/18 08:48 Dose: 1 tab Aspirin (Ecotrin) 81 mg PO DAILY [facility] Last Admin: 07/18/18 08:49 Dose: 81 mg Bisacodyl (Dulcolax Supp) 10 mg RECTAL DAILY PRN PRN Reason: SEVERE CONSITIPATION Carvedilol (Coreg) 12.5 mg PO BID [facility] Dexamethasone (Decadron) 4 mg PO BID [facility] Last Admin: 07/18/18 08:48 Dose: 4 mg Heparin Sodium (Porcine) (Heparin Central Flush) 250 unit IV.FLUSH PRN PRN PRN Reason: Flush Infusapot Heparin Sodium (Porcine) (Heparin Central Flush) 500 unit IV.FLUSH PRN PRN PRN Reason: Flush infusaport Levetiracetam (Keppra) 500 mg PO BID [facility] Last Admin: 07/18/18 08:48 Dose: 500 mg Morphine Sulfate (Oramorph Sr) 100 mg PO TID [facility] Nicotine (Habitrol 7 Mg Patch.24 Hr) 1 patch T-DERMAL DAILY [facility] Last Admin: 07/18/18 08:47 Dose: 1 patch Oxycodone HCl (Roxicodone) 30 mg PO Q4H PRN PRN Reason: BREAKTHROUGH PAIN Last Admin: 07/18/18 11:28 Dose: 30 mg Patch Removal (Remove Old Patch) 0 each T-DERMAL [facility] Prochlorperazine (Compazine Supp) 25 mg RECTAL Q12HR PRN PRN Reason: NAUSEA OR VOMITING Sennosides (Senokot) 17.2 mg PO Q12H PRN PRN Reason: Moderate Constipation Last Admin: 07/17/18 05:49 Dose: 17.2 mg Sodium Chloride (Ns Flush) 2 ml IV.FLUSH BID [facility] Last Admin: 07/18/18 08:49 Dose: 2 ml Sodium Chloride (Ns Flush) 2 ml IV.FLUSH PRN PRN PRN Reason: FLUSH AFTER USING IV ACCESS Sodium Chloride (Ns Flush) 5 ml IV.FLUSH PRN PRN PRN Reason: Flush Infusaport Allergies Allergy/AdvReac Type Severity Reaction Status Date / Time No Known Allergies Allergy Verified 07/13/18 18:57 Home Medications Medication Instructions Recorded Confirmed Type docusate sodium 100 mg PO BID 03/03/18 07/14/18 History morphine [MS Contin] 100 mg PO Q8H 03/03/18 07/14/18 History oxycodone 30 mg PO Q4-6H PRN MDD 2.5 tablets 03/03/18 07/14/18 History Physical Exam Vital signs: Vital Signs 07/17/18 16:00 07/17/18 16:49 07/17/18 17:00 Temperature 98.6 F Pulse Rate 96 H 102 H Respiratory Rate 18 20 Blood Pressure 149/93 H Pulse Oximetry 99 07/17/18 17:47 07/17/18 19:00 07/17/18 20:00 Temperature 98.2 F Pulse Rate 100 H 100 H 94 H Respiratory Rate 18 Blood Pressure 154/97 H Pulse Oximetry 98 07/17/18 21:00 07/17/18 21:56 07/17/18 22:00 Temperature Pulse Rate 94 H 94 H Respiratory Rate Blood Pressure Pulse Oximetry 98 07/17/18 23:00 07/18/18 00:00 07/18/18 01:00 Temperature 98.1 F Pulse Rate 98 H 97 H 111 H Respiratory Rate 20 Blood Pressure 124/84 Pulse Oximetry 97 07/18/18 02:00 07/18/18 03:00 07/18/18 03:53 Temperature 99 F Pulse Rate 105 H 98 H 108 H Respiratory Rate 20 Blood Pressure 165/98 H Pulse Oximetry 97 07/18/18 03:57 07/18/18 05:00 07/18/18 05:43 Temperature Pulse Rate 108 H 100 H 102 H Respiratory Rate Blood Pressure Pulse Oximetry 07/18/18 07:00 07/18/18 08:00 07/18/18 08:10 Temperature 97.8 F Pulse Rate 106 H 112 H Respiratory Rate 20 18 Blood Pressure 156/97 H Pulse Oximetry 98 07/18/18 09:00 07/18/18 09:22 07/18/18 10:00 Temperature Pulse Rate 112 H 104 H Respiratory Rate Blood Pressure Pulse Oximetry 97 07/18/18 11:00 07/18/18 12:00 07/18/18 13:00 Temperature 97.9 F Pulse Rate 96 H 114 H 106 H Respiratory Rate 20 Blood Pressure 152/98 H Pulse Oximetry 99 07/18/18 14:00 07/18/18 14:35 Temperature Pulse Rate 104 H Respiratory Rate 20 Blood Pressure Pulse Oximetry Intake & Output 07/17/18 07/18/18 07/18/18 18:59 06:59 18:59 Intake Total 2330 / 2330 1900 / 1900 200 / 200 Output Total 1600 / 1600 950 / 950 Balance 730 / 730 950 / 950 200 / 200 Weight 49.5 kg Intake: IV 50 / 50 1000 / 1000 200 / 200 Zosyn 3.375 GM Premix 50 ML @ 50 / 50 100 mls/hr IV.SIG Q6H [facility] Rx#: [id number] NS Inj 1,000 ML @ 50 mls/hr IV. 1000 / 1000 200 / 200 SIG .Q20H [facility] Rx#:[id number] Oral 2280 / 2280 900 / 900 Output: Urine 1600 / 1600 950 / 950 Other: Date of Last Bowel Movement 07/17/18 07/15/18 07/18/18 # Bowel Movements 1 0 Narrative: awake and alert, oriented x 3 anciteric neck supole decreased breath sounds, no rales irregularly irregular rhythm abdomen soft extremities = + trace edema- non tender Results 07/17/18 05:29 07/16/18 10:14 CBC 07/17/18 Range/Units 05:29 WBC 14.8 H (4.0-11.0) th/mm3 RBC 2.89 L (4.50-5.90) mil/mm3 Hgb 9.3 L (13.0-17.0) gm/dL Hct 27.3 L (39.0-51.0) % Plt Count 172 (150-450) th/mm3 Neut # (Auto) 13.7 H (1.8-7.7) th/mm3 Lymph # (Auto) 0.6 L (1.0-4.8) th/mm3 [place] # (Auto) 0.4 (0.0-0.9) th/mm3 Eos # (Auto) 0.0 (0.0-0.4) th/mm3 Baso # (Auto) 0.0 (0.0-0.2) th/mm3 Intake and Output 07/18/18 07/18/18 07/18/18 06:59 14:59 22:59 Intake Total 1900 / 1900 200 / 200 Output Total 950 / 950 Balance 950 / 950 200 / 200 Intake: IV 1000 / 1000 200 / 200 NS Inj 1,000 ML @ 50 mls/hr IV. 1000 / 1000 200 / 200 SIG .Q20H [facility] Rx#:[id number] Oral 900 / 900 Output: Urine 950 / 950 Other: Date of Last Bowel Movement 07/15/18 07/18/18 # Bowel Movements 0 Weight 49.5 kg Assessment and Plan - Assessment (1) Atrial fibrillation with RVR Code(s): I48.91 - Unspecified atrial fibrillation Status: Acute (2) Acute hypotension Code(s): I95.9 - Hypotension, unspecified Status: Acute (3) Mass of lung Code(s): R91.8 - Other nonspecific abnormal finding of lung field Status: Chronic (4) Pneumonia Code(s): J18.9 - Pneumonia, unspecified organism Status: Acute (5) Metastatic lung carcinoma Code(s): C78.00 - Secondary malignant neoplasm of unspecified lung Status: Acute (6) Pain Code(s): R52 - Pain, unspecified Status: Chronic (7) Shortness of breath Code(s): R06.02 - Shortness of breath Status: Acute (8) Cardiomyopathy Code(s): I42.9 - Cardiomyopathy, unspecified Status: Chronic (9) Brain metastases Code(s): C79.31 - Secondary malignant neoplasm of brain Status: Acute (10) Recurrent aspiration pneumonia Code(s): J69.0 - Pneumonitis due to inhalation of food and vomit Status: Acute (11) CHF (congestive heart failure) Code(s): I50.9 - Heart failure, unspecified Status: Acute - Plan 1) AFib with RVR and hypotension Most likely due to dehydration from poor oral intake Blood pressure better, heart rates up most likely from pain Con't Coreg, agree with increasing Could always change to Metoprolol Would attempt to use BB for heart rate control With cardiomyopathy, should avoid CCB Concern for Amiodarone prison Concern with Digoxin is high risk for dehydration with poor oral intake Not an anticoagulation candidate, ok for ASA 81mg daily Due to brain metastasis 2) Cardiomyopathy Not an invasive candidate due to brain metastasis Continue medical management Most likely only Coreg Concern for starting ALIS-I due to high risk for dehydration with poor oral intake at home 3) Dysphagia Unwilling to take thickened liquids High risk for continued dehydration vs aspiration (4) Pneumonia Qualifiers: Pneumonia type: due to unspecified organism Laterality: right Lung location : lower lobe of lung Qualified Code(s): J18.1 - Lobar pneumonia, unspecified organism (5) Metastatic lung carcinoma Qualifiers: Laterality: right Qualified Code(s): C78.01 - Secondary malignant neoplasm of right lung (8) Cardiomyopathy Qualifiers: Cardiomyopathy type: unspecified Qualified Code(s): I42.9 - Cardiomyopathy, unspecified
--- NOTE | 2018-07-18 15:26 | P.PNONC ---
Subjective Interval history: Patient ambulating in room, in no acute distress. Patient reports that his pain medications have been "all screwed up". Per patient at home he takes Oramorph 3 times daily, review of records this is been addressed by attending. Patient adamantly refuses to drink thickened liquids stating "that is like concrete" Awaiting radiation this afternoon. Objective Vital Signs/Intake & Output: Vital Signs 07/17/18 16:00 07/17/18 16:49 07/17/18 17:00 Temperature 98.6 F Pulse Rate 96 H 102 H Respiratory Rate 18 20 Blood Pressure 149/93 H Pulse Oximetry 99 07/17/18 17:47 07/17/18 19:00 07/17/18 20:00 Temperature 98.2 F Pulse Rate 100 H 100 H 94 H Respiratory Rate 18 Blood Pressure 154/97 H Pulse Oximetry 98 07/17/18 21:00 07/17/18 21:56 07/17/18 22:00 Temperature Pulse Rate 94 H 94 H Respiratory Rate Blood Pressure Pulse Oximetry 98 07/17/18 23:00 07/18/18 00:00 07/18/18 01:00 Temperature 98.1 F Pulse Rate 98 H 97 H 111 H Respiratory Rate 20 Blood Pressure 124/84 Pulse Oximetry 97 07/18/18 02:00 07/18/18 03:00 07/18/18 03:53 Temperature 99 F Pulse Rate 105 H 98 H 108 H Respiratory Rate 20 Blood Pressure 165/98 H Pulse Oximetry 97 07/18/18 03:57 07/18/18 05:00 07/18/18 05:43 Temperature Pulse Rate 108 H 100 H 102 H Respiratory Rate Blood Pressure Pulse Oximetry 07/18/18 07:00 07/18/18 08:00 07/18/18 08:10 Temperature 97.8 F Pulse Rate 106 H 112 H Respiratory Rate 20 18 Blood Pressure 156/97 H Pulse Oximetry 98 07/18/18 09:00 07/18/18 09:22 07/18/18 10:00 Temperature Pulse Rate 112 H 104 H Respiratory Rate Blood Pressure Pulse Oximetry 97 07/18/18 11:00 07/18/18 12:00 07/18/18 13:00 Temperature 97.9 F Pulse Rate 96 H 114 H 106 H Respiratory Rate 20 Blood Pressure 152/98 H Pulse Oximetry 99 07/18/18 14:00 07/18/18 14:35 07/18/18 15:00 Temperature Pulse Rate 104 H 95 H Respiratory Rate 20 Blood Pressure Pulse Oximetry Intake & Output 07/17/18 07/18/18 07/18/18 18:59 06:59 18:59 Intake Total 2330 / 2330 1900 / 1900 200 / 200 Output Total 1600 / 1600 950 / 950 Balance 730 / 730 950 / 950 200 / 200 Weight 49.5 kg Intake: IV 50 / 50 1000 / 1000 200 / 200 Zosyn 3.375 GM Premix 50 ML @ 50 / 50 100 mls/hr IV.SIG Q6H SUSIE Rx#: [id number] NS Inj 1,000 ML @ 50 mls/hr IV. 1000 / 1000 200 / 200 SIG .Q20H SUSIE Rx#:[id number] Oral 2280 / 2280 900 / 900 Output: Urine 1600 / 1600 950 / 950 Other: Date of Last Bowel Movement 07/17/18 07/15/18 07/18/18 # Bowel Movements 1 0 Result Diagrams: 07/17/18 05:29 07/16/18 10:14 Culture Results: Microbiology 07/13/18 21:45 Aerobic Blood Culture - Final Blood - Peripheral No growth in 5 days Anaerobic Blood Culture - Final No growth in 5 days 07/13/18 21:50 Aerobic Blood Culture - Final Blood - Peripheral No growth in 5 days Anaerobic Blood Culture - Final No growth in 5 days Medications: Active Medications Generic Name Dose Route Start Last Admin Trade Name Freq PRN Reason Stop Dose Admin Amoxicillin/Clavulanate Potassium 1 tab 07/17/18 21:00 07/18/18 08:48 Augmentin 875/125 Mg PO 1 tab Q12HR SSUIE Administration Aspirin 81 mg 07/14/18 09:00 07/18/18 08:49 Ecotrin PO 81 mg DAILY SUSIE Administration Dexamethasone 4 mg 07/14/18 09:00 07/18/18 08:48 Decadron PO 4 mg BID SUSIE Administration Levetiracetam 500 mg 07/14/18 09:00 07/18/18 08:48 Keppra PO 500 mg BID SUSIE Administration Nicotine 1 patch 07/17/18 13:00 07/18/18 08:47 Habitrol 7 Mg Patch.24 Hr T-DERMAL 1 patch DAILY SUSIE Administration Oxycodone HCl 30 mg 07/14/18 10:20 07/18/18 11:28 Roxicodone PO 30 mg Q4H PRN Administration BREAKTHROUGH PAIN Sennosides 17.2 mg 07/14/18 02:44 07/17/18 05:49 Senokot PO 17.2 mg Q12H PRN Administration Moderate Constipation Sodium Chloride 2 ml 07/14/18 09:00 07/18/18 08:49 Ns Flush IV.FLUSH 2 ml BID SUSIE Administration Objective Remarks: GENERAL: Chronically ill-appearing older male ambulating in room, in no acute distress per SKIN: Warm and dry. HEAD: Normocephalic. EYES: No scleral icterus. No injection or drainage. NECK: Supple, trachea midline. No JVD or lymphadenopathy. CARDIOVASCULAR: +S1/S2. Irregular rhythm RESPIRATORY: Breath sounds diminished right lung base. GASTROINTESTINAL: Abdomen soft, non-tender, nondistended. EXTREMITIES: No cyanosis, or edema. MUSCULOSKELETAL: Adequate muscle tone. NEUROLOGICAL: No obvious focal deficit. Awake, alert, and oriented x3. Assessment/Plan - Plan 1. Metastatic small cell lung carcinoma. He presented with shortness of breath and constitutional symptoms. He was found to have a large right lower lobe mass obstructing the bronchus causing partial collapse of right lung. There were also multiple pleural and subpleural nodules in the right lung. He also found to have a brain metastasis. Bronchoscopy and biopsy of right lower lobe lung mass showed small cell lung carcinoma. He started carboplatin, etoposide 02/2018. He just completed fourth cycle on 06/17/2018. He was supposed to come to clinic yesterday for another cycle of chemotherapy, but he did not show up. We have ordered a CT scan, but again he did not get the CT scan done. During his last admission, a CT of the chest still showed right lung consolidation. Clinically, he has shortness of breath and cough. A chest x-ray showed persistent consolidation in the medial right lung. July 17: Continue antibiotics. Monitor respiratory status. 2. Brain metastasis. Initially, he had a small lesion and received stereotactic radiation in April. Recent MRI showed 2 other lesions, one in the frontal lobe and one in the left parietal lobe. He is supposed to see Dr. wolff for whole brain irradiation, but is unclear if he actually completed the radiation. He is still on Decadron. He has no new neurologic symptoms at this time. 3. Seizure disorder due to brain metastasis which has not recurred. 4. Chronic atrial fibrillation. 5. Recent aspiration pneumonia. 6. Chronic obstructive pulmonary disease. 7. Congestive heart failure with ejection fraction less than 25%. 8. Chronic pain. RECOMMENDATIONS: 1. Metastatic small cell lung carcinoma with brain metastasis, receiving radiation treatments. 2. Aspiration pneumonia, on antibiotics. Patient adamantly refuses to thickened liquids. 3. Pain management has been addressed by attending. 4. From an oncology standpoint patient may be discharged home once cleared by other treating physicians, patient will follow-up in the outpatient clinic with Dr. Herrera. - Attending Statement The exam, history, and the medical decision-making described in the above note were completed with the assistance of the mid-level provider. I reviewed and agree with the findings presented. I attest that I had a [id number] encounter with the patient on the same day, and personally performed and documented my assessment and findings in the medical record.No headache. No CP. +SOB but stable. Discussed with , pt is almost done with XRT. He will f/u oncology clinic after completion of XRT to continue chemotherapy. He can be d/c from oncology standpoint.
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
[2018-07-18] MEDS: Carvedilol 12.5 MG Tablet PO SCH (20:57)
[2018-07-18 23:51] LABS: Baso % (Auto) 0.1 % (0.0-2.0); Hematocrit 29.4 % (39.0-51.0); Hemoglobin 9.4 gm/dL (13.0-17.0); Lymph # (Auto) 0.6 th/mm3 (1.0-4.8); Lymph % (Auto) 3.8 % (9.0-44.0); Mean Corpuscular HGB Conc 31.9 % (32.0-36.0); Mean Corpuscular Hemoglobin 30.5 pg (27.0-34.0); Mean Corpuscular Volume 95.7 fL (80.0-100.0); Mono # (Auto) 0.9 th/mm3 (0.0-0.9); Mono % (Auto) 5.6 % (0.0-8.0); Neut # (Auto) 14.1 th/mm3 (1.8-7.7); Neut % (Auto) 90.5 % (16.0-70.0); Platelet Count 199 th/mm3 (150-450); Red Blood Count 3.07 mil/mm3 (4.50-5.90); Red Cell Distribution Width 23.5 % (11.6-17.2); White Blood Count 15.6 th/mm3 (4.0-11.0)
[2018-07-19 04:56] LABS: Baso % (Auto) 0.1 % (0.0-2.0); Hematocrit 29.2 % (39.0-51.0); Hemoglobin 9.8 gm/dL (13.0-17.0); Lymph # (Auto) 0.5 th/mm3 (1.0-4.8); Lymph % (Auto) 3.1 % (9.0-44.0); Mean Corpuscular HGB Conc 33.7 % (32.0-36.0); Mean Corpuscular Hemoglobin 31.9 pg (27.0-34.0); Mean Corpuscular Volume 94.7 fL (80.0-100.0); Mean Platelet Volume 8.3 fL (7.0-11.0); Mono # (Auto) 0.4 th/mm3 (0.0-0.9); Mono % (Auto) 2.9 % (0.0-8.0); Neut # (Auto) 14.1 th/mm3 (1.8-7.7); Neut % (Auto) 93.9 % (16.0-70.0); Platelet Count 209 th/mm3 (150-450); Red Blood Count 3.08 mil/mm3 (4.50-5.90); Red Cell Distribution Width 24.3 % (11.6-17.2); White Blood Count 15.1 th/mm3 (4.0-11.0)
[2018-07-19] MEDS: levETIRAcetam 500 MG Tablet PO SCH (08:00)
[2018-07-19] MEDS: Morphine Sulfate 100 MG SR Tablet PO SCH ×2 (08:00→12:16)
[2018-07-19] MEDS: Amoxicillin/Clavulanate 875/125 MG Tablet PO SCH (08:00)
[2018-07-19] MEDS: Carvedilol 12.5 MG Tablet PO SCH (08:02)
[2018-07-19 08:05] VITALS: RESP 16; O2SAT 98
--- NOTE | 2018-07-19 11:56 | P.DS ---
DS: Providers Date of admission: 07/13/18 23:09 Primary care physician: Sb Herrera MD Consults: 07/14/18 02:38 Consult to Oncology Routine Consulting Provider: Mary Murphy Patient known to:: Sb Herrera Reason for Consultation: metastatic lung cancer Notified:: Service Spoke with:: Josiane Date Notified:: 07/14/18 Time Notified:: 03:25 Comments:: Pt known to Dr. Herrera. Dr. Murphy is actuarial consultant. Ordering Provider: JASMIN 07/14/18 02:40 Consult to Nephrology Routine Consulting Provider: Shankar Herr Does the patient have a Supervisor Audit Clerks who follows them?: No Preferred Nephrology Senior Game Advisor:: Marketing Services Manager Physician Reason for Consultation: ARF Notified:: Service Spoke with:: Yessenia Date Notified:: 07/14/18 Time Notified:: 03:28 Ordering Provider: JASMIN 07/14/18 07:58 Consult to Palliative Care Routine Consulting Provider: Shawn Albarado Reason for Consultation: mets lung cancer Notified:: Service Spoke with:: Shankar Date Notified:: 07/14/18 Time Notified:: 08:06 Ordering Provider: BERT 07/16/18 17:59 Consult to Cardiology Routine Consulting Provider: Dewayne Cox Does the patient have a Bow Stapler who follows them?: Yes Preferred Take Off Worker:: Otoniel Santoyo Reason for Consultation: AFIB / FLUTTER, VARIABLE RATE ? 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 The patient reports he was too weak to go to chemo/radiation today. He reports that he has pain all over his whole body. He denies any fevers or chills. No chest pain or shortness of breath. No abdominal pain. No nausea/vomiting/diarrhea. No focal neurologic deficits. Endorses anorexia for the past week and reports his liquid intake has been markedly decreased. DS: Summary Mr. Mendez is a 62-year-old male. He was admitted secondary to sepsis from pneumonia. 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 He has had hyponatremia since she has been here but nothing severe. He had A. fib RVR on time of admit. Coreg has been increased. Currently he is rate controlled. Cardiology has recommended against digoxin, calcium channel blockers, and ALIS inhibitors; so medications have been adjusted appropriately. Aspirin is continued. Patient is cleared by oncology and cardiology today. Nephrology has seen patient several days ago and his no further input at this point. Today patient is medically stable and cleared for discharge home. Time Spent with Patient Total time spent providing and/or coordinating discharge services: Quality: VTE Deep Vein Thrombosis/Pulmonary Embolism Present on Admission: No Results Labs on day of discharge: Labs from last 24 hours 07/19/18 07/18/18 03:30 23:24 WBC 15.1 H 15.6 H RBC 3.08 L 3.07 L Hgb 9.8 L 9.4 L Hct 29.2 L 29.4 L MCV 94.7 95.7 MCH 31.9 30.5 MCHC 33.7 31.9 L RDW 24.3 H 23.5 H Plt Count 209 199 MPV 8.3 8.0 Neut % (Auto) 93.9 H 90.5 H Lymph % (Auto) 3.1 L 3.8 L [place] % (Auto) 2.9 5.6 Eos % (Auto) 0.0 0.0 Baso % (Auto) 0.1 0.1 Neut # (Auto) 14.1 H 14.1 H Lymph # (Auto) 0.5 L 0.6 L [place] # (Auto) 0.4 0.9 Eos # (Auto) 0.0 0.0 Baso # (Auto) 0.0 0.0 WBC Differential . . Differential Comment Auto diff final Auto diff final Impressions ITS Impressions Chest X-Ray 07/13/18 20:49 CONCLUSION: Persistent consolidation in the medial right lung base. Abdomen/Bladder Ultrasound 07/14/18 00:00 CONCLUSION: Negative renal sonogram. Chest CT 07/14/18 07:46 CONCLUSION: 1. Large mass of the right lung base with extension into the subcarinal region. This is stable compared to previous exam. 2. Significant improvement in the appearance of the airspace disease involving the right upper and middle lobe as well as the left lower lobe. Venous Doppler Study 07/15/18 00:00 CONCLUSION: No DVT. Videofluoroscopic Swallow 07/16/18 00:00 CONCLUSION: Penetration and aspiration with some of the thin liquids. Discharge Plan Discharge Disposition Patient Disposition: W/Home Health Service Discharge Condition Condition: Stable Discharge Order Discharge Orders: Discharge Order (Routine); Ordered 07/19/18 Ordered By: Mushtaq Hubbard Discharge Details Anticipated Discharge Date: 07/19/18 Physicians Team Primary Care Provider: Sb Herrera Attending Provider: Mushtaq Hubbard Other Providers: Shankar Herr ; Mary Murphy ; Shawn Albarado ; Sb Herrera ; Dewayne Cox Rxs /Orders / Referrals /Forms Prescriptions: New aspirin 81 mg Tablet,Delayed Release (Dr/Ec) 81 mg PO DAILY Qty: 30 RF: 0 amoxicillin-pot clavulanate 875-125 mg Tablet 1 tab PO Q12HR Qty: 10 RF: 0 carvedilol [Coreg] 12.5 mg Tablet 12.5 mg PO BID Qty: 60 RF: 0 Lactobacillus acidophilus Capsule 500 mmu cells PO TID Qty: 14 RF: 0 Continue oxycodone 30 mg Tablet 30 mg PO Q4-6H MDD 2.5 tablets PRN (Reason: Chronic Pain) RF: 0 morphine [MS Contin] 100 mg Tablet Extended Release 100 mg PO Q8H RF: 0 docusate sodium 100 mg Tablet 100 mg PO BID RF: 0 sennosides-docusate sodium [Senna Plus] 8.6-50 mg Tablet 1 tab PO BID Qty: 120 RF: 0 levetiracetam [Keppra] 500 mg Tablet 500 mg PO Q12H Qty: 60 RF: 0 potassium chloride 20 mEq Tablet Extended Release 20 meq PO TID Qty: 90 RF: 0 Discontinued clonidine HCl [Catapres] 0.1 mg Tablet 0.1 mg PO Q12HR Qty: 60 RF: 0 amiodarone 200 mg Tablet 400 mg PO DAILY Qty: 60 RF: 0 carvedilol [Coreg] 3.125 mg Tablet 3.125 mg PO BID Qty: 60 RF: 0 lisinopril 2.5 mg Tablet 2.5 mg PO DAILY Qty: 30 RF: 0 Ambulatory Orders / Order Sets / DME: Walker With Front Wheels (1 each) (Routine) Location: Determined by Patient Ordered By: Mushtaq Hubbard Referrals: Sb Herrera MD [Primary Care Provider] - See Instructions Status ED Status: Left Department
--- NOTE | 2018-07-19 11:57 | P.DCO ---
Physical Therapy Order: Evaluate and treat, Improve ambulation and Strength and gait training Home Health Nursing Order: Medical education and Signs/symptoms of disease process Case Management Consult Case Management Consult-Home Health: Yes I have seen patient Lorenzo Mendez JR on 07/19/18. My clinical findings support the need for the requested home health care services because: Limited mobility due to disease progression, Patient has SOB and Deconditioned with increased weakness I certify that my clinical findings support that this patient is homebound because: Unsteady gait/balance, Unsafe to leave home unassisted and Unable to use public transportation
[2018-07-19 12:21] VITALS: BP 135/80; PULSE 91; TEMP 98.2
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
--- NOTE | 2018-07-19 14:37 | P.PNCA ---
Subjective Interval history: No events overnight Up and ambulating Medications and Allergies Active Medications: Active Medications Acetaminophen (Tylenol) 650 mg PO Q4H PRN PRN Reason: Temp > 100.4 Amoxicillin/Clavulanate Potassium (Augmentin 875/125 Mg) 1 tab PO Q12HR [facility] Last Admin: 07/19/18 08:00 Dose: 1 tab Aspirin (Ecotrin) 81 mg PO DAILY [facility] Last Admin: 07/19/18 08:00 Dose: 81 mg Bisacodyl (Dulcolax Supp) 10 mg RECTAL DAILY PRN PRN Reason: SEVERE CONSITIPATION Carvedilol (Coreg) 12.5 mg PO BID [facility] Last Admin: 07/19/18 08:02 Dose: 12.5 mg Dexamethasone (Decadron) 4 mg PO BID [facility] Last Admin: 07/19/18 08:00 Dose: 4 mg Heparin Sodium (Porcine) (Heparin Central Flush) 250 unit IV.FLUSH PRN PRN PRN Reason: Flush Infusapot Last Admin: 07/18/18 23:11 Dose: 250 unit Heparin Sodium (Porcine) (Heparin Central Flush) 500 unit IV.FLUSH PRN PRN PRN Reason: Flush infusaport Levetiracetam (Keppra) 500 mg PO BID [facility] Last Admin: 07/19/18 08:00 Dose: 500 mg Morphine Sulfate (Oramorph Sr) 100 mg PO TID [facility] Last Admin: 07/19/18 12:16 Dose: 100 mg Nicotine (Habitrol 7 Mg Patch.24 Hr) 1 patch T-DERMAL DAILY [facility] Last Admin: 07/19/18 08:02 Dose: 1 patch Oxycodone HCl (Roxicodone) 30 mg PO Q4H PRN PRN Reason: BREAKTHROUGH PAIN Last Admin: 07/19/18 12:15 Dose: 30 mg Patch Removal (Remove Old Patch) 0 each T-DERMAL HS [facility] Last Admin: 07/18/18 20:57 Dose: 1 each Prochlorperazine (Compazine Supp) 25 mg RECTAL Q12HR PRN PRN Reason: NAUSEA OR VOMITING Sennosides (Senokot) 17.2 mg PO Q12H PRN PRN Reason: Moderate Constipation Last Admin: 07/17/18 05:49 Dose: 17.2 mg Sodium Chloride (Ns Flush) 2 ml IV.FLUSH BID [facility] Last Admin: 07/19/18 08:00 Dose: 2 ml Sodium Chloride (Ns Flush) 2 ml IV.FLUSH PRN PRN PRN Reason: FLUSH AFTER USING IV ACCESS Sodium Chloride (Ns Flush) 5 ml IV.FLUSH PRN PRN PRN Reason: Flush Infusaport Allergies Allergy/AdvReac Type Severity Reaction Status Date / Time No Known Allergies Allergy Verified 07/13/18 18:57 Home Medications Medication Instructions Recorded Confirmed Type docusate sodium 100 mg PO BID 03/03/18 07/14/18 History morphine [MS Contin] 100 mg PO Q8H 03/03/18 07/14/18 History oxycodone 30 mg PO Q4-6H PRN MDD 2.5 tablets 03/03/18 07/14/18 History Physical Exam Vital signs: Vital Signs 07/18/18 15:00 07/18/18 16:00 07/18/18 16:05 Temperature 97.8 F Pulse Rate 95 H 109 H Respiratory Rate 18 20 Blood Pressure 136/91 H Pulse Oximetry 99 07/18/18 18:00 07/18/18 19:00 07/18/18 19:43 Temperature 97.8 F Pulse Rate 103 H 103 H 105 H Respiratory Rate 20 Blood Pressure 156/93 H Pulse Oximetry 99 07/18/18 20:00 07/18/18 20:35 07/18/18 21:00 Temperature Pulse Rate 114 H 124 H Respiratory Rate 17 Blood Pressure Pulse Oximetry 98 07/18/18 21:57 07/18/18 22:00 07/18/18 23:00 Temperature Pulse Rate 105 H 96 H Respiratory Rate 18 Blood Pressure Pulse Oximetry 07/19/18 00:00 07/19/18 01:00 07/19/18 02:00 Temperature 98.3 F Pulse Rate 90 94 H 86 Respiratory Rate 18 Blood Pressure 129/77 Pulse Oximetry 97 07/19/18 03:00 07/19/18 04:00 07/19/18 05:00 Temperature 97.8 F Pulse Rate 97 H 98 H 89 Respiratory Rate 18 Blood Pressure 123/95 H Pulse Oximetry 100 07/19/18 06:00 07/19/18 07:00 07/19/18 08:00 Temperature 98.0 F Pulse Rate 86 129 H 110 H Respiratory Rate 16 Blood Pressure 153/98 H Pulse Oximetry 98 12/04/18 09:00 07/19/18 10:00 07/19/18 10:46 Temperature Pulse Rate 102 H 94 H Respiratory Rate Blood Pressure Pulse Oximetry 98 07/19/18 11:00 07/19/18 12:00 Temperature 98.2 F Pulse Rate 102 H 91 H Respiratory Rate 16 Blood Pressure 135/80 Pulse Oximetry 98 Intake & Output 07/18/18 07/19/18 07/19/18 18:59 06:59 18:59 Intake Total 1880 / 1880 240 / 240 Output Total 2700 / 2700 Balance -820 / -820 240 / 240 Weight 50 kg Intake: IV 200 / 200 NS Inj 1,000 ML @ 50 mls/hr IV. 200 / 200 SIG .Q20H SUSIE Rx#:[id number] Oral 1680 / 1680 240 / 240 Output: Urine 2700 / 2700 Other: # Voids 2 Date of Last Bowel Movement 07/18/18 07/18/18 # Bowel Movements 1 Narrative: awake and alert, oriented x 3 anciteric neck supole decreased breath sounds, no rales irregularly irregular rhythm abdomen soft extremities = + trace edema- non tender Results 07/19/18 03:30 07/16/18 10:14 CBC 07/18/18 07/19/18 Range/Units 23:24 03:30 WBC 15.6 H 15.1 H (4.0-11.0) th/mm3 RBC 3.07 L 3.08 L (4.50-5.90) mil/mm3 Hgb 9.4 L 9.8 L (13.0-17.0) gm/dL Hct 29.4 L 29.2 L (39.0-51.0) % Plt Count 199 209 (150-450) th/mm3 Neut # (Auto) 14.1 H 14.1 H (1.8-7.7) th/mm3 Lymph # (Auto) 0.6 L 0.5 L (1.0-4.8) th/mm3 [place] # (Auto) 0.9 0.4 (0.0-0.9) th/mm3 Eos # (Auto) 0.0 0.0 (0.0-0.4) th/mm3 Baso # (Auto) 0.0 0.0 (0.0-0.2) th/mm3 Intake and Output 07/18/18 07/19/18 07/19/18 22:59 06:59 14:59 Intake Total 1680 / 1680 240 / 240 Output Total 2700 / 2700 Balance -1020 / -1020 240 / 240 Intake: Oral 1680 / 1680 240 / 240 Output: Urine 2700 / 2700 Other: # Voids 2 Date of Last Bowel Movement 07/18/18 07/18/18 # Bowel Movements 1 Weight 50 kg Assessment and Plan - Assessment (1) Atrial fibrillation with RVR Code(s): I48.91 - Unspecified atrial fibrillation Status: Acute (2) Acute hypotension Code(s): I95.9 - Hypotension, unspecified Status: Acute (3) Mass of lung Code(s): R91.8 - Other nonspecific abnormal finding of lung field Status: Chronic (4) Pneumonia Code(s): J18.9 - Pneumonia, unspecified organism Status: Acute (5) Metastatic lung carcinoma Code(s): C78.00 - Secondary malignant neoplasm of unspecified lung Status: Acute (6) Pain Code(s): R52 - Pain, unspecified Status: Chronic (7) Shortness of breath Code(s): R06.02 - Shortness of breath Status: Acute (8) Cardiomyopathy Code(s): I42.9 - Cardiomyopathy, unspecified Status: Chronic (9) Brain metastases Code(s): C79.31 - Secondary malignant neoplasm of brain Status: Acute (10) Recurrent aspiration pneumonia Code(s): J69.0 - Pneumonitis due to inhalation of food and vomit Status: Acute (11) CHF (congestive heart failure) Code(s): I50.9 - Heart failure, unspecified Status: Acute - Plan 1) AFib with RVR and hypotension Most likely due to dehydration from poor oral intake Blood pressure better, heart rates up most likely from pain Con't Coreg Would attempt to use BB for heart rate control With cardiomyopathy, should avoid CCB 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 Concern with Digoxin is high risk for dehydration with poor oral intake Not an anticoagulation candidate, ok for ASA 81mg daily Due to brain metastasis 2) Cardiomyopathy Not an invasive candidate due to brain metastasis Continue medical management Most likely only Coreg Concern for starting ALIS-I due to high risk for dehydration with poor oral intake at home 3) Dysphagia Unwilling to take thickened liquids High risk for continued dehydration vs aspiration 4) Agree with discharge (4) Pneumonia Qualifiers: Pneumonia type: due to unspecified organism Laterality: right Lung location : lower lobe of lung Qualified Code(s): J18.1 - Lobar pneumonia, unspecified organism (5) Metastatic lung carcinoma Qualifiers: Laterality: right Qualified Code(s): C78.01 - Secondary malignant neoplasm of right lung (8) Cardiomyopathy Qualifiers: Cardiomyopathy type: unspecified Qualified Code(s): I42.9 - Cardiomyopathy, unspecified
--- NOTE | 2018-07-19 15:03 | P.PNONC ---
Subjective Interval history: Patient ambulating in room, he is in good spirits stating "I am going home" Patient tells me to make sure that we have all of his scripts ready to go, including all of his pain medications and antibiotics. Discussed with the patient his pain medications and he states that he only has "1 day worth" Called Dr. Herrera's charge nurse, patient missed his last appointment and his last prescriptions were wrote on June 28, the long-acting morphine was written for twice daily and Roxicodone for breakthrough pain up to 3 times daily. The patient should have remaining medications as he has been hospitalized for 6 days. Discussed with the patient and he states he takes his morphine 3 times daily and he takes the Bee 3-4 times daily. Discussed again with charge nurse, Dr. Herrera will have a rx for him to [facility] and his follow-up apt. He has been educated on taking these medications appropriately and as written. Objective Vital Signs/Intake & Output: Vital Signs 07/18/18 15:00 07/18/18 16:00 07/18/18 16:05 Temperature 97.8 F Pulse Rate 95 H 109 H Respiratory Rate 18 20 Blood Pressure 136/91 H Pulse Oximetry 99 07/18/18 18:00 07/18/18 19:00 07/18/18 19:43 Temperature 97.8 F Pulse Rate 103 H 103 H 105 H Respiratory Rate 20 Blood Pressure 156/93 H Pulse Oximetry 99 07/18/18 20:00 07/18/18 20:35 07/18/18 21:00 Temperature Pulse Rate 114 H 124 H Respiratory Rate 17 Blood Pressure Pulse Oximetry 98 07/18/18 21:57 07/18/18 22:00 07/18/18 23:00 Temperature Pulse Rate 105 H 96 H Respiratory Rate 18 Blood Pressure Pulse Oximetry 07/19/18 00:00 07/19/18 01:00 07/19/18 02:00 Temperature 98.3 F Pulse Rate 90 94 H 86 Respiratory Rate 18 Blood Pressure 129/77 Pulse Oximetry 97 07/19/18 03:00 07/19/18 04:00 07/19/18 05:00 Temperature 97.8 F Pulse Rate 97 H 98 H 89 Respiratory Rate 18 Blood Pressure 123/95 H Pulse Oximetry 100 07/19/18 06:00 07/19/18 07:00 07/19/18 08:00 Temperature 98.0 F Pulse Rate 86 129 H 110 H Respiratory Rate 16 Blood Pressure 153/98 H Pulse Oximetry 98 07/19/18 09:00 07/19/18 10:00 07/19/18 10:46 Temperature Pulse Rate 102 H 94 H Respiratory Rate Blood Pressure Pulse Oximetry 98 07/19/18 11:00 07/19/18 12:00 Temperature 98.2 F Pulse Rate 102 H 91 H Respiratory Rate 16 Blood Pressure 135/80 Pulse Oximetry 98 Intake & Output 07/18/18 07/19/18 07/19/18 18:59 06:59 18:59 Intake Total 1880 / 1880 240 / 240 Output Total 2700 / 2700 Balance -820 / -820 240 / 240 Weight 50 kg Intake: IV 200 / 200 NS Inj 1,000 ML @ 50 mls/hr IV. 200 / 200 SIG .Q20H SUSIE Rx#:[id number] Oral 1680 / 1680 240 / 240 Output: Urine 2700 / 2700 Other: # Voids 2 Date of Last Bowel Movement 07/18/18 07/18/18 # Bowel Movements 1 Result Diagrams: 07/19/18 03:30 07/16/18 10:14 Laboratory Results: Laboratory Results - last 24 hr 07/18/18 07/19/18 23:24 03:30 WBC 15.6 H 15.1 H RBC 3.07 L 3.08 L Hgb 9.4 L 9.8 L Hct 29.4 L 29.2 L MCV 95.7 94.7 MCH 30.5 31.9 MCHC 31.9 L 33.7 RDW 23.5 H 24.3 H Plt Count 199 209 MPV 8.0 8.3 Neut % (Auto) 90.5 H 93.9 H Lymph % (Auto) 3.8 L 3.1 L [place] % (Auto) 5.6 2.9 Eos % (Auto) 0.0 0.0 Baso % (Auto) 0.1 0.1 Neut # (Auto) 14.1 H 14.1 H Lymph # (Auto) 0.6 L 0.5 L [place] # (Auto) 0.9 0.4 Eos # (Auto) 0.0 0.0 Baso # (Auto) 0.0 0.0 WBC Differential . . Differential Comment Auto diff final Auto diff final Culture Results: Microbiology 07/13/18 21:45 Aerobic Blood Culture - Final Blood - Peripheral No growth in 5 days Anaerobic Blood Culture - Final No growth in 5 days 07/13/18 21:50 Aerobic Blood Culture - Final Blood - Peripheral No growth in 5 days Anaerobic Blood Culture - Final No growth in 5 days Medications: Active Medications Generic Name Dose Route Start Last Admin Trade Name Freq PRN Reason Stop Dose Admin Amoxicillin/Clavulanate Potassium 1 tab 07/17/18 21:00 07/19/18 08:00 Augmentin 875/125 Mg PO 1 tab Q12HR SUSIE Administration Aspirin 81 mg 07/14/18 09:00 07/19/18 08:00 Ecotrin PO 81 mg DAILY SUSIE Administration Carvedilol 12.5 mg 07/18/18 21:00 07/19/18 08:02 Coreg PO 12.5 mg BID SUSIE Administration Dexamethasone 4 mg 07/14/18 09:00 07/19/18 08:00 Decadron PO 4 mg BID SUSIE Administration Heparin Sodium (Porcine) 250 unit 07/18/18 10:33 07/18/18 23:11 Heparin Central Flush IV.FLUSH 250 unit PRN PRN Administration Flush Infusapot Levetiracetam 500 mg 07/14/18 09:00 07/19/18 08:00 Keppra PO 500 mg BID SUSIE Administration Morphine Sulfate 100 mg 07/18/18 21:00 07/19/18 12:16 Oramorph Sr PO 100 mg TID SUSIE Administration Nicotine 1 patch 07/17/18 13:00 07/19/18 08:02 Habitrol 7 Mg Patch.24 Hr T-DERMAL 1 patch DAILY [facility]IE Administration Oxycodone HCl 30 mg 07/14/18 10:20 07/19/18 12:15 Roxicodone PO 30 mg Q4H PRN Administration BREAKTHROUGH PAIN Patch Removal 0 each 07/18/18 21:00 07/18/18 20:57 Remove Old Patch T-DERMAL 1 each HS [facility] Administration Sennosides 17.2 mg 07/14/18 02:44 07/17/18 05:49 Senokot PO 17.2 mg Q12H PRN Administration Moderate Constipation Sodium Chloride 2 ml 07/14/18 09:00 07/19/18 08:00 Ns Flush IV.FLUSH 2 ml BID [facility]USIE Administration Objective Remarks: GENERAL: Chronically ill-appearing older male ambulating in room, in no acute distress. SKIN: Warm and dry. HEAD: Normocephalic. EYES: No scleral icterus. No injection or drainage. NECK: Supple, trachea midline. No JVD or lymphadenopathy. CARDIOVASCULAR: +S1/S2. Irregular rhythm RESPIRATORY: Breath sounds diminished right lung base. GASTROINTESTINAL: Abdomen soft, non-tender, nondistended. EXTREMITIES: No cyanosis, or edema. MUSCULOSKELETAL: Adequate muscle tone. NEUROLOGICAL: No obvious focal deficit. Awake, alert, and oriented x3. Assessment/Plan - Plan 1. Metastatic small cell lung carcinoma. He presented with shortness of breath and constitutional symptoms. He was found to have a large right lower lobe mass obstructing the bronchus causing partial collapse of right lung. There were also multiple pleural and subpleural nodules in the right lung. He also found to have a brain metastasis. Bronchoscopy and biopsy of right lower lobe lung mass showed small cell lung carcinoma. He started carboplatin, etoposide 02/2018. He just completed fourth cycle on 06/17/2018. He was supposed to come to clinic yesterday for another cycle of chemotherapy, but he did not show up. We have ordered a CT scan, but again he did not get the CT scan done. During his last admission, a CT of the chest still showed right lung consolidation. Clinically, he has shortness of breath and cough. A chest x-ray showed persistent consolidation in the medial right lung. July 17: Continue antibiotics. Monitor respiratory status. 2. Brain metastasis. Initially, he had a small lesion and received stereotactic radiation in April. Recent MRI showed 2 other lesions, one in the frontal lobe and one in the left parietal lobe. He is supposed to see Dr. wolff for whole brain irradiation, but is unclear if he actually completed the radiation. He is still on Decadron. He has no new neurologic symptoms at this time. 3. Seizure disorder due to brain metastasis which has not recurred. 4. Chronic atrial fibrillation. 5. Recent aspiration pneumonia. 6. Chronic obstructive pulmonary disease. 7. Congestive heart failure with ejection fraction less than 25%. 8. Chronic pain. RECOMMENDATIONS: 1. Metastatic small cell lung carcinoma with brain metastasis, receiving radiation treatments. 2. Aspiration pneumonia, on antibiotics. Patient adamantly refuses to thickened liquids. 3. Pain management has been addressed. 4. From an oncology standpoint patient may be discharged home, patient will follow-up in the outpatient clinic with Dr. Herrera. - Attending Statement The exam, history, and the medical decision-making described in the above note were completed with the assistance of the mid-level provider. I reviewed and agree with the findings presented. I attest that I had a [id number] encounter with the patient on the same day, and personally performed and documented my assessment and findings in the medical record. Pt is feeling better. SOB improved. discussed with , and pt should complete his XRT this week. He can be discharge from oncology standpoint. F/u Oncology clinic in 1 week to start chemotherapy.
== END 2018-07-19 14:44 | disposition home or self-care (01) ==
LOC: NEPC 18:45 → NEDA 23:09 → NEDH 07-14 07:09 → HIMC 07-14 15:45 → HCIS 07-15 19:20
PROVIDERS: ADMIT Hospitalist; ATTEND Hospitalist
DX: R53.81 Other malaise; Z91.19 Patient's noncompliance with other medical treatment and regimen; Z87.01 Personal history of pneumonia (recurrent); I50.22 Chronic systolic (congestive) heart failure; M54.9 Dorsalgia, unspecified; E86.0 Dehydration; I48.2 Chronic atrial fibrillation; I48.92 Unspecified atrial flutter; J69.0 Pneumonitis due to inhalation of food and vomit; M79.604 Pain in right leg; N17.9 Acute kidney failure, unspecified; G89.29 Other chronic pain; R63.0 Anorexia; Z79.82 Long term (current) use of aspirin; I42.9 Cardiomyopathy, unspecified; Z87.891 Personal history of nicotine dependence; G40.909 Epilepsy, unspecified, not intractable, without status epilepticus; I95.9 Hypotension, unspecified; J44.0 Chronic obstructive pulmonary disease with (acute) lower respiratory infection; C34.31 Malignant neoplasm of lower lobe, right bronchus or lung; Z68.1 Body mass index [BMI] 19.9 or less, adult; Z82.0 Family history of epilepsy and other diseases of the nervous system; R13.10 Dysphagia, unspecified; A41.9 Sepsis, unspecified organism; R53.1 Weakness; E22.2 Syndrome of inappropriate secretion of antidiuretic hormone; R63.4 Abnormal weight loss; F12.90 Cannabis use, unspecified, uncomplicated; C79.31 Secondary malignant neoplasm of brain